=== PATIENT | female | born 1955 | race Hispanic/Latino ===

== ENCOUNTER 2020-03-08 00:15 | Emergency (ER) | payer BC ==
[~2020-03-08] VITALS: Ht 152.4 cm; Wt 85.7 kg
[2020-03-08 00:43] LABS: EOSINOPHILS # (AUTO) 0.2 (0.0-0.4); HEMATOCRIT 25.9 % (34.2-44.1); HEMOGLOBIN 8.2 g/dL (12.0-16.0); LYMPHOCYTES # (AUTO) 1.6 (1.0-3.2); LYMPHOCYTES % 37.8 % (18.0-39.1); MEAN CORPUSCULAR HEMOGLOBIN 30.9 pg (28-32); MEAN CORPUSCULAR HGB CONC 31.7 g/dL (31-35); MEAN CORPUSCULAR VOLUME 97.7 fL (81-99); MONOCYTES # (AUTO) 0.4 (0.2-0.8); MONOCYTES % 10.2 % (4.4-11.3); NEUTROPHILS % 46.8 % (38.7-80.0); RED BLOOD COUNT 2.65 x10e6/uL (3.6-5.1); RED CELL DISTRIBUTION WIDTH 17.5 % (11.7-14.4)
[2020-03-08 00:51] LABS: PLATELET COUNT 37 x10e3/uL (140-360)
--- NOTE | 2020-03-08 00:51 | Emergency Department Note ---
History of Present Illnes History of Present Illness Chief Complaint: Neurological History of Present Illness This is a 64 year old female arrived to the ED with daughter with complaints of confusion similar to what she had in the past when she had presents encephalopathy.. Historian: Patient, Family Member Arrival Mode: Car Onset (how long ago): day(s) Duration (how long): day(s) Timing of current episode: constant Progression: waxing and waning Chronicity: recurrent Past Medical/Family History Physician Review I have reviewed the patient's past medical and family history. Any updates have been documented here. Past Medical History Recent Fever: No Clinical Suspicion of Infectio: No New/Unexplained Change in Ment: No Social History Smoking Cessation: Never Smoker Counseling Performed: No Alcohol Use: None Any Illegal Drug Use: No Other Any Pre-Existing Lines (PICC,: No Review of Systems ROS Narrative Unable to obtain ROS: altered mental status Review of Systems Constitutional: Reports as per HPI; Denies fever, Denies malaise EENTM: Reports no symptoms Cardiovascular: Reports no symptoms Respiratory: Reports no symptoms Gastrointestinal: Reports no symptoms Genitourinary: Reports no symptoms Musculoskeletal: Reports no symptoms Integumentary: Reports no symptoms Neurological: Reports as per HPI Psychological: Reports no symptoms Endocrine: Reports no symptoms Hematological/Lymphatic: Reports no symptoms Physical Exam Related Data Allergies: Coded Allergies: No Known Allergies (Unverified , 03/08/20) Triage Vital Signs Vital Signs Date Time Temp Pulse Resp B/P (MAP) Pulse Ox O2 Delivery O2 Flow Rate FiO2 03/08/20 00:22 98.2 76 15 118/50 100 Room Air Vital signs reviewed: Yes Physical Exam CONSTITUTIONAL Constitutional: Present well-developed, Present well-nourished HENT HENT: Present normocephalic, Present atraumatic, Present oropharynx clear/moist, Present nose normal HENT L/R: Present left ext ear normal, Present right ext ear normal EYES Eyes: Reports PERRL, Reports conjunctivae normal NECK Neck: Present ROM normal PULMONARY Pulmonary: Present effort normal, Present breath sounds normal CARDIOVASCULAR Cardiovascular: Present regular rhythm, Present heart sounds normal, Present capillary refill normal, Present normal rate GASTROINTESTINAL Abdominal: Present soft, Present nontender, Present bowel sounds normal GENITOURINARY Genitourinary: Present exam deferred SKIN Skin: Present warm, Present dry MUSCULOSKELETAL Musculoskeletal: Present ROM normal NEUROLOGICAL Neurological: Present alert, Present no gross motor or sensory deficits PSYCHOLOGICAL Psychological: Present mood/affect normal, Present judgement normal Results Laboratory Laboratory Laboratory Tests Test 03/08/20 00:30 Lab results reviewed: Yes Imaging Imaging results reviewed: Yes Assessment & Plan Medical Decision Making MDM 64-year-old female arrived to the ED with questionable altered mental status. Patient is awake alert oriented 3 but is exhibiting bizarre behavior. Granddaughter at bedside stated patient had a ten-day ICU stay for hepatic encephalopathy. Patient's labwork in the ED was unremarkable except for an elevated bilirubin. Patient had no evidence of other pneumonia or abnormal liver enzymes. A CT of the brain was done to ensure there was no neurological process in the form of a CVA that was causing patient's bizarre behavior. A CT abdomen and pelvis was also performed to ensure that there was no retained stone in the common bile duct. Patient had a mild urinary tract infection and perhaps this is the cause of her symptoms, at this time there appears to be no indication for further workup and family to wishes bring the patient home. Patient was discharged home, individually steady gait. Patient was given medications in the ED to help relax her and effort to obtain CT brain and CT abdomen and pelvis which she was initially refusing. Patient was discharged home with granddaughter and , understands they're welcome to return back to the emergency department any time. Assessment & Plan Final Impression: (1) Urinary tract infection Depart Disposition: HOME, SELF-CARE Last Vital Signs Date Time Temp Pulse Resp B/P (MAP) Pulse Ox O2 Delivery O2 Flow Rate FiO2 03/08/20 00:22 98.2 76 15 118/50 100 Room Air Home Meds Reported Medications Lactulose (LACTULOSE) 20 Gm/30 Ml Solution, 15 ML PO TID, EACH 03/08/20 Levetiracetam (LEVETIRACETAM) 500 Mg Tablet, 500 MG PO BID 03/08/20 Spironolactone (SPIRONOLACTONE) 25 Mg Tablet, 25 MG PO DAILY, #60 TAB 03/08/20 Thiamine Hcl (VITAMIN B-1) 100 Mg Tablet, 100 MG PO DAILY 03/08/20 Midodrine Hcl (MIDODRINE HCL) 5 Mg Tablet, 10 MG PO TID, TAB 03/08/20 Furosemide (FUROSEMIDE) 40 Mg Tablet, 40 MG PO Daily, #30 TAB 03/08/20 Pantoprazole Sodium* (PROTONIX) 40 Mg Tablet.dr, 40 MG PO DAILY, TAB 03/08/20 [folic acid] No Conflict Check, 1 MG PO DAILY 03/08/20 Rifaximin (XIFAXAN) 550 Mg Tablet, 550 MG PO DAILY 03/08/20 Ferrous Sulfate (FERROUS SULFATE) 325 Mg Tablet, 325 MG PO DAILY 03/08/20 SYLVIA JAQUEZ, Mar 08, 2020 00:51
[2020-03-08 00:55] LABS: ALBUMIN 3.1 g/dL (3.5-5.0); ANION GAP 13.1 mmol/L (8-16); CALCIUM 8.7 mg/dL (8.4-10.2); CREATININE, SERUM 1.27 mg/dL (0.57-1.11); POTASSIUM 3.1 mmol/L (3.5-5.1)
[2020-03-08] MEDS ORDERED: FERROUS SULFAT325 MG PO (01:00)
[2020-03-08] MEDS ORDERED: LEVETIRACETAM500 MG PO (01:00)
[2020-03-08] MEDS ORDERED: XIFAXAN550 MG PO (01:00)
[2020-03-08] MEDS ORDERED: FUROSEMIDE40 MG PO (01:00)
[2020-03-08] MEDS ORDERED: folic acid PO (01:00)
[2020-03-08] MEDS ORDERED: MIDODRINE HCL5 MG PO (01:00)
[2020-03-08] MEDS ORDERED: PANTOPRAZOLE SO40 MG PO (01:00)
[2020-03-08] MEDS ORDERED: VITAMIN B-1100 MG PO (01:00)
[2020-03-08] MEDS ORDERED: SPIRONOLACTONE25 MG PO (01:00)
[2020-03-08] MEDS ORDERED: LACTULOSE20 GM/30 M PO (01:01)
[2020-03-08] MEDS ORDERED: LORAZEPAM INJ 2 MG/ML VIAL IV ONE (01:15)
[2020-03-08] MEDS ORDERED: LORAZEPAM INJ 2 MG/ML VIAL ONE (01:20)
[2020-03-08 01:24] LABS: AMYLASE 33 U/L (25-125); LIPASE 11 U/L (8-78)
[2020-03-08] MEDS ORDERED: SODIUM CHLORIDE 0.9% 1000ML 1,000 ML IV STA (01:25)
[2020-03-08] MEDS ORDERED: HALOPERIDOL LACTATE 5 MG/ML VIAL ONE (01:44)
[2020-03-08] MEDS ORDERED: HALOPERIDOL LACTATE 5 MG/ML VIAL IM ONE (02:00)
--- NOTE | 2020-03-08 02:01 | NUR ---
over the past hour patient has become increasingly confused and agitated, mutliple attempts to reorient have failed, comfort measure have failed to reorient patient, all safety measures are in place for patient.
--- NOTE | 2020-03-08 03:44 | NUR ---
patient is now less agitated, resting in bed comfortably.
--- NOTE | 2020-03-08 04:15 | Diagnostic Imaging Report ---
EXAMINATION: CHEST SINGLE (PORTABLE) INDICATION: EDEMA TO BLE ^[id number] ^[id number] COMPARISON: None FINDINGS: TUBES and LINES: None. LUNGS: Lungs are well inflated. Mild perihilar patchy density, left greater than right may represent mild asymmetric pulmonary edema. There is mild prominence of the central pulmonary vasculature, consistent with pulmonary venous congestion. PLEURA: Bilateral small pleural effusions. No pneumothorax. HEART AND MEDIASTINUM: Cardiac size is mildly enlarged. BONES AND SOFT TISSUES: No acute osseous lesion. Soft tissues are unremarkable. UPPER ABDOMEN: No free air under the diaphragm. IMPRESSION: Bilateral pulmonary venous congestion and mild asymmetric pulmonary edema. Signed by: Dr. Carlos López M.D. on 03/08/2020 4:12 AM
--- NOTE | 2020-03-08 04:30 | Diagnostic Imaging Report ---
EXAM: CT Abdomen and Pelvis WITH contrast INDICATION: Abdominal pain. Jaundice. COMPARISON: None. TECHNIQUE: Abdomen and pelvis were scanned utilizing a multidetector helical scanner from the lung base to the pubic symphysis after administration of IV contrast. Coronal and sagittal reformations were obtained. Routine protocol was performed. Scan was performed when during portal venous phase. IV CONTRAST: 100 cc Isovue-370 ORAL CONTRAST: Water RADIATION DOSE: Total DLP: 2176.62 mGy*cm Estimated effective dose: (DLP x 0.015 x size factor) mSv COMPLICATIONS: None FINDINGS: LINES and TUBES: None. LOWER THORAX: Small right and trace left pleural effusions. Compressive subsegmental atelectasis of the right lower lobe. Trace pericardial effusion. HEPATOBILIARY: Nodular hepatic contour, with atrophy of the medial segment of the left hepatic lobe, consistent with cirrhotic morphology. 6 mm low-attenuation lesion in the hepatic dome on image 12 series 6 is too small to be characterized.. No biliary ductal dilation. GALLBLADDER: No radio-opaque stones or sludge. No wall thickening. SPLEEN: Mild splenomegaly. PANCREAS: No focal masses or ductal dilatation. ADRENALS: No adrenal nodules KIDNEYS/URETERS: Kidneys enhance symmetrically. No hydronephrosis. 1.9 cm high attenuation lesion exophytic of the posterior lower pole of the left kidney with dependent high attenuation may represent a hemorrhagic cyst, however, not completely characterized in this postcontrast exam.. No stones. GI TRACT: No abnormal distention, wall thickening, or evidence of bowel obstruction. There are a few diverticula within the colon without evidence of diverticulitis. Appendix is nonvisualized, however, no evidence of PELVIC ORGANS/BLADDER: Small calcified leiomyoma exophytic of the posterior uterine fundus. LYMPH NODES: No lymphadenopathy. VESSELS: Large collateral vessels about the splenic vein, with severe narrowing of the portal vein consistent with collateral circulation with splenorenal shunt. 1.2 cm eggshell type calcification in the splenic hilum may represent a thrombosed aneurysm. Prominent right gonadal vein. PERITONEUM / RETROPERITONEUM: No free air or fluid. BONES: There are degenerative changes in the lumbar spine. Bulky posterior endplate osteophytes at T12-L1. Marked facet arthropathy at T10-T11 with impingement on the right posterolateral spinal canal. SOFT TISSUES: Mild diffuse subcutaneous edema. IMPRESSION: 1. Hepatic cirrhosis. 2. Mild splenomegaly. 3. Portal hypertension with collateral circulation. 4. Small right pleural effusion and right basilar subsegmental atelectasis. 5. 1.9 cm complex cystic lesion in the lower pole of the left kidney is indeterminate. Recommend further evaluation with nonemergent dedicated CT of abdomen without and with contrast adrenal mass protocol. Signed by: Dr. Carlos López M.D. on 03/08/2020 4:27 AM
--- NOTE | 2020-03-08 04:44 | Diagnostic Imaging Report ---
EXAMINATION: CT angio of the neck and head with contrast. HISTORY:Altered mental status and slurred speech for 3 days. COMPARISON:None. TECHNIQUE: Multidetector helical axial images were acquired through the neck and head during infusion of iodinated contrast material. Images were reviewed in multiplanar and 3-dimensional format. Dose modulation, iterative reconstruction, and/or weight based adjustment of the mA/kV was utilized to reduce the radiation dose to as low as reasonably achievable. Contrast: 100 mL of Isovue-370 . FINDINGS: CT head: Skull/scalp: No lytic or blastic. lesions. No surgical changes. Parenchyma: Cortical/subcortical based hypodensity in right parietal lobe and focal patchy hypodensity in left subinsular region represents age indeterminate vascular insult. Nonspecific few, scattered supratentorial white matter hypodensity are likely related to small vessel ischemic changes. Suboptimal evaluation particularly of skull base and posterior fossa structures due to streak artifacts. No acute hemorrhage, mass or acute major vascular territorial infarct. Arteries: No density suggestive of thrombosis. Vascular stent in the distal petrous and cavernous segment of left internal carotid artery. Dural sinuses: No abnormal density suggestive of thrombosis. Ventricles: No hydrocephalus or displacement. Extra-axial spaces: Mild prominence of bilateral frontoparietal extra-axial space which is diffusely hypodense, and approximately measures 5 mm in maximum thickness on the right side and 5.5 mm in maximum thickness on the left with regional mass effect. No midline shift. Brain volume: Normal for age. Craniocervical junction: No mass, Chiari malformation, or basilar invagination. Sella: No mass. Paranasal/mastoid sinuses: Opacification of partially visualized hypoplastic right maxillary sinus. Partial sclerosis and under pneumatization of right mastoid air cells possibly related to chronic inflammation. NECK: If carotid bulb stenosis is present, stenosis is measured with respect to the distal extracranial internal carotid artery. Aortic arch and major vessels: Patent. Common origin of the brachiocephalic trunk and left common carotid artery. Few, scattered nonstenotic atherosclerotic calcification in the aortic arch. Common carotid arteries: Patent, retropharyngeal course of bilateral common carotid arteries. Cervical carotid bifurcations: Patent, no abnormality. Internal carotid arteries: Right: Patent. Left: Patent. Vertebral arteries: Right vertebral artery is patent. Few, scattered nonstenotic hard atherosclerotic plaque in V2 segment of left vertebral artery without significant stenosis. Incidental finding: Right pleural effusion. Right dependent atelectasis. Cervical spine: C4-C5: Mild right foraminal stenosis due to facet and uncovertebral arthrosis. C5-C6: Mild right foraminal stenosis due to facet arthrosis. HEAD: Internal carotid arteries: Right: 3.5 mm saccular aneurysm arising from medial aspect of the cavernous segment of right internal carotid artery, oriented medially towards the sella. The neck approximately measures 2.6 mm. Left: Vascular stent in the distal petrous and cavernous segment of left internal carotid artery. The metallic stent limits evaluation due to artifacts, despite the limitation of flow within the stent appears to the patent with good distal flow. Bilateral anterior and middle cerebral arteries are patent. Vertebral arteries: Patent. Basilar artery: Patent. Posterior cerebral arteries: Patent. Anatomical variants: Anterior communicating artery :Not well-visualized Posterior communicating arteries: Not visualized. Vertebral arteries: Codominant. IMPRESSION: CT head: 1. Age indeterminate vascular insult in left subinsular region and possible chronic vascular insult in right parietal lobe. 2. Mild supratentorial white matter microvascular ischemic changes. 3. Mild bilateral frontoparietal chronic subdural hemorrhage vs subdural hygroma with regional mass effect. No midline shift or brain herniation. 4. Left internal carotid vascular stent in the petrous and cavernous segment. CTA head and neck: 1. 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 2. Vascular stent in the distal petrous and cavernous segment of left internal carotid artery, suboptimal evaluation at this level due to metallic artifacts. Despite the limitation stent is patent with good distal flow. This can be better evaluated with conventional angiogram if clinically indicated. 3. Few, scattered nonstenotic atherosclerotic calcification particularly in the aortic arch and V2 segment of left vertebral artery. Signed by: Dr. Romi Basilio M.D. on 03/08/2020 4:41 AM
[2020-03-08 05:28] LABS: CLARITY,URINE HAZY (CLEAR); COLOR,URINE AMBER (YELLOW)
[2020-03-08 05:29] LABS: BACTERIA,URINE MANY /HPF; BILIRUBIN,URINE NEGATIVE (NEGATIVE); EPITHELIAL CELLS,URINE MODERATE /LPF; KETONES,URINE NEGATIVE (NEGATIVE); LEUKOCYTE ESTERASE ,URINE NEGATIVE (NEGATIVE); NITRITE,URINE POSITIVE (NEGATIVE); PROTEIN,URINE DIPSTICK NEGATIVE (NEGATIVE); URINE UROBILINOGEN 0.2 mg/dL (0.2 - 1)
--- NOTE | 2020-03-08 07:04 | NUR ---
WALKING ROUNDS WITH TONI RAY
[2020-03-08 07:39] VITALS: BP 106/57
[2020-03-08] MEDS ORDERED: SODIUM CHLORIDE 0.9% 100 ML ONE (10:28)
[2020-03-08] MEDS ORDERED: IOPAMIDOL 370 MG/ML 200 ML INFUS..BTL INJ ONE (10:28)
== END 2020-03-08 08:30 | disposition home or self-care (01) ==
LOC: ER 00:41
DX: N39.0 Urinary tract infection, site not specified (principal); R41.0 Disorientation, unspecified
CPT/HCPCS: 36415; 70496; 70498; 71045; 74177; 80053; 80320; 81001; 82140; 82150; 83690; 83880; 85025; 99284; J1630; J2060; J7050; Q9967

== ENCOUNTER 2020-03-15 07:13 | Inpatient (IN) | payer BC, OTHER ==
[~2020-03-15] VITALS: Ht 152.4 cm; Wt 85.7 kg
[2020-03-15] VITALS (7 sets, daily range): BP systolic 90–111; BP diastolic 46–59
[~2020-03-15 07:13] MED LIST: FERROUS SULFAT325 MG PO; FUROSEMIDE40 MG PO; LACTULOSE20 GM/30 M PO; LEVETIRACETAM500 MG PO; MIDODRINE HCL5 MG PO; PANTOPRAZOLE SO40 MG PO; SPIRONOLACTONE25 MG PO; VITAMIN B-1100 MG PO; XIFAXAN550 MG PO; folic acid PO
--- OUTSIDE RECORDS SUMMARY | 2020-03-15 08:00 | XMS REPORT | Continuity of Care Document ---
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 Role Phone [facility] Information Exchange Unavailable Un available Problems Problem Status Onset Date Classification Date Reported Comments Source AMS Active 0 02/15/2020 [facility] ALTERED MENTAL STATUS, ACUTE HEPATIC ENC Active 02/15/2020 [facility] Encounter for screening mammogram for ma lignant neoplasm of breast 11/29/2017 02/23/2018 [facility] ROUTINE SCREENING LAST MMG W/ Active 11/16/2017 [facility] DX: I82.401=ACUTE EMBOLISM AND THROMBOSI Active 11/16/2017 [facility] Z12.11 Active 10/11/2016 [facility] UNK Active 0 10/11/2016 [facility] ALTERED MENTAL STATUS Active 09/18/2016 [facility] Discharge Diagnosis: Palpitations 04/29/2016 05/02/2016 [facility] RAPID HEARTRATE Active 04/28/2016 [facility] LARGE LEFT CAVERNOUS ANEURYSM Active 09/16/2011 [facility] Anxiety (finding) Active Problem 02/28/2020 [facility] Cerebrovascular accident (disorder) Active Problem [facility] Cirrhosis of liver (disorder) Active Problem [facility] History of cholecystectomy (situation) Active Problem [facility] Hypertensive disorder, systemic arterial (disorder) Active Problem 02/28/2020 [facility] Seizure (finding) Active Problem 02/28/2020 [facility] History of cholecystectomy Act aristeo Problem 07/2012 [facility] HTN - Hypertension Active Problem 03/25/2012 [facility] NONRUPT CEREBRAL ANEURYM Active [facility] ALTERED MENTAL STATUS, UNSPECIFIED Active [facility] ACUTE AND SUBACUTE HEPATIC FAILURE WITHO Active [facility] Medications Medication Details Route Status Patient Instructions Ordering Provider Order Date Source Levetiracetam Notes: (Same as: Keppra) No Longer Active 02/27/2020 [facility] pantoprazole 40 MG Enteric Coated Tablet [Protonix] 40 mg = 1 tab, PO, Daily, # 30 tab, 0 Refill(s), Pharmacy: [facility] #[id number], 152.4, cm, 02/15/20 22:51:00 CDT, Height, 59.091, kg, 02/15/20 22:51:00 CDT, Weight Active 02/26/2020 [facility] thiamine 100 mg oral tablet 10 0 mg = 1 tab, PO, Daily, X 30 day, # 30 tab, 0 Refill(s), Pharmacy: [facility] #[id number], 152.4, cm, 02/15/20 22:51:00 CDT, Height, 59.091, kg, 02/15/20 22:51:00 CDT, Weight Active 02/26/2020 [facility] midodrine 5 mg oral tablet 10 mg = 2 tab, PO, TID, # 180 tab, 0 Refill(s), Pharmacy: [facility] #[id number], 152.4, cm, 02/15/20 22:51:00 CDT, Height, 59.091, kg, 02/15/20 22:51:00 CDT, Weight Active 02/26/2020 [facility] Potassium Chloride Notes: ([facility] e as: K-Dur 20) "Do Not Crush" Give with food and full glass of water For patients unable to swallow tablet, dissolve in one half glass of water. Allow about 2 minutes for the tab lets to disintegrate. Stir before giving to prepare slurry and administer. Please exclude Patients with feeding tube less than 14 Romanian (Dobhoff, J-tube etc) and pediatric and patients. No Longer Active 02/26/2020 [facility] potassium phosphate-sodium phosphate 250 mg-280 mg-160 mg oral powder for reconstitution Notes: (Same as: Phos-NaK) Each 1.5 gm pkt has 250mg phosphorous. Mix w/2.5oz water and stir. No Longer Active 02/26/2020 [facility] potassium phosphate Notes: ([facility] as: K Phosphate.) Do not infuse phosphorous concurrently in the same line as TPN or IVF that contains calcium. For double lumen central lines, phosphorous may be infused in a separate lumen from TPN. 1 mMol phoshate has 1.47 mEq potassium Infuse over 4 hours No Longer Active 02/26/2020 [facility] sodium phosphate Notes: Infuse over 4 hour. Do not infuse phosphorous concurrently in the same line as TPN or IVF that contains calcium. For double lumen central lines, phosphorous may be infused in a separate lumen from TPN. No Longer Active 02/26/2020 [facility] Magnesium Sulfate Notes: WASTE : F/P - Sink; E - Municipal Trash Bin No Longer Active 02/26/2020 [facility] Magnesium Oxide Notes: (Same a s: Mag-Ox 400) Magnesium oxide [id number] elemental magnesium Dose=____mg magnesium oxide (___mg elemental magnesium) No Longer Active 02/26/2020 [facility] Calcium Gluconate Notes: WASTE : F/P - Sink; E - Municipal Trash Bin No Longer Active 02/26/2020 [facility] Potassium Chloride Notes: ([facility] e as: KCL) Infuse no faster than 10 mEq/hr if given peripherally. No Longer Active 02/25/2020 [facility] sodium phosphate Notes: Infuse over 4 hour. Do not infuse phosphorous concurrently in the same line as TPN or IVF that contains calcium. For double lumen central lines, phosphorous may be infused in a separate lumen from TPN. No Longer Active 02/25/2020 [facility] potassium phosphate Notes: (Sa me as: K Phosphate.) Do not infuse phosphorous concurrently in the same line as TPN or IVF that contains calcium. For double lumen central lines, phosphorous may be infused in a separate lumen from TPN. 1 mMol phoshate has 1.47 mEq potassium Infuse over 4 hours No Longer Active 02/25/2020 [facility] potassium phosphate-sodium phosphate 250 mg-280 mg-160 mg oral powder for reconstitution Notes: (Same as: Phos-NaK) Each 1.5 gm pkt has 250mg phosphorous. Mix w/2.5oz water and stir. No Longer Active 02/25/2020 [facility] Magnesium Sulfate Notes: WASTE : F/P - Sink; E - Municipal Trash Bin No Longer Active 02/25/2020 [facility] Magnesium Oxide Notes: (Same a s: Mag-Ox 400) Magnesium oxide [id number] elemental magnesium Dose=____mg magnesium oxide (___mg elemental magnesium) No Longer Active 02/25/2020 [facility] Calcium Gluconate Notes: Conta ins: calcium gluconate 20mg/mL NaCl 0.67% 50mL WASTE: F/P - Sink; E - Municipal Trash Bin No Longer Active 02/25/2020 [facility] Calcium Carbonate 500 MG Chewable Tablet Notes: (Same As: Tumadithya) Calcium Carbonate 500 mg = 200 mg elemental calcium Dose = mg calcium carbonate ( mg elemental calcium) No Longer Active 02/25/2020 [facility] D5W 500 mL 500 mL, Rate: 100 m l/hr, Infuse over: 5 hr, Route: IV, Dosing Weight 59.091 kg, Total Volume: 500, Start date: 02/25/20 6:13:00 CDT, Duration: 30 day, Stop date: 03/26/20 6:12:00 CDT, 1.6, m2, 0 No Longer Active 02/25/2020 [facility] potassium phosphate Notes: (Sa me as: K Phosphate.) Do not infuse phosphorous concurrently in the same line as TPN or IVF that contains calcium. For double lumen central lines, phosphorous may be infused in a separate lumen from TPN. 1 mMol phoshate has 1.47 mEq potassium Infuse over 4 hours Inactive 02/25/2020 [facility] Magnesium Sulfate Notes: WASTE : F/P - Sink; E - Municipal Trash Bin Inactive 02/25/2020 [facility] potassium phosphate Notes: (Sa me as: K Phosphate.) Do not infuse phosphorous concurrently in the same line as TPN or IVF that contains calcium. For double lumen central lines, phosphorous may be infused in a separate lumen from TPN. 1 mMol phoshate has 1.47 mEq potassium Infuse over 4 hours Inactive 02/23/2020 [facility] Lactulose 667 MG/ML Oral Solution Notes: (Same as:Chronulac) No Longer Active 02/21/2020 [facility] Lactulose 667 MG/ML Oral Solution Notes: (Same as:Chronulac) Inactive 02/21/2020 [facility] Metronidazole Notes: (Same as: Flagyl) Avoid alcohol. No Longer Active 02/20/2020 [facility] Sodium Chloride 0.9% IV 250 mL + octreot david 1,250 microgram 250 mL, Rate: 10 ml/hr, Infuse over: 25 hr, Route: IV, Dosing Weight 59.091 kg, Total Volume: 250, Start date: 02/19/20 7:00:00 CDT, Duration: 30 day, Stop date: 03/20/20 6:59:00 CDT, 1.6, m2 Inactive 02/19/2020 [facility] octreotide 1,250 microgram + Sodium Chlo ride 0.9% IV 248.75 mL 248.75 mL, Rate: 10 ml/hr, Infuse over: 25 hr, Route: IV, Dosing Weight 59.091 kg, Total Volume: 250, Start date: 02/19/20 6:50:00 CDT, Duration: 30 day, Stop date: 03/20/20 6:49:00 CDT, 1.6, m2, 0 No Longer Active 02/19/2020 [facility] pantoprazole additive 80 mg + Sodium Chl oride 0.9% IV 100 mL Notes: For IV push reconstitute with 10 ml 0.9% sodium chloride and push over 2 minutes. (Same as: Protonix) No Longer Active 02/19/2020 [facility] Thiamine Notes: (Same As: Chloe min B1) No Longer Active 02/18/2020 [facility] Vitamin K 1 Notes: Same as: Aminata Chaney Mephyton Combine FILTERED phytonadione injection (total 50 mg/5 mL)with Simple Syrup (45mL) in natalee bottle. Shake well prior to dispensing. Expiration: 90 days at temp No Longer Active 02/18/2020 [facility] Plavix Notes: (Same As: Plavix) No Longer Active 02/18/2020 [facility] Folic Acid Notes: (Same as: Fo lvite) No Longer Active 02/18/2020 [facility] Vasopressin ([facility]) Notes: (Same As: Pitressin, Vasostrict) No Longer Active 02/17/2020 [facility] albumin human 25% intravenous solution Notes: Lot #: Mfg: (Same as: Plasbumin-25) "blood product derivative" WASTE: F/P - Red; E -Red MEDICATION WASTE Product Size: 25 gm Product Wasted: ___ gm No Longer Active 02/17/2020 [facility] Lactulose 667 MG/ML Oral Solution Notes: (Same as:Chronulac) No Longer Active 02/17/2020 [facility] Rocephin + sterile water 10 mL Notes: (Same As: Rocephin). Use with 100 mL NS and infuse over 30 min MEDICATION WASTE Product Size: 1000 mg Product Wasted: ___ mg No Longer Active 02/17/2020 [facility] Lactulose 667 MG/ML Oral Solution Notes: (Same as:Chronulac) Inactive 02/17/2020 [facility] rifaximin Notes: Same as: Xifa jones No Longer Active 02/17/2020 [facility] XIFAXAN Notes: Same as: Xifaxan Inactive 02/16/2020 [facility] riFAXimin 550 mg oral tablet 5 50 mg = 1 tab, PO, BID Active 02/16/2020 [facility] pantoprazole 40 MG Enteric Coated Tablet [Protonix] 40 mg = 1 tab, PO, Daily No Longe r Active 02/16/2020 [facility] Furosemide 40 MG Oral Tablet 4 0 mg = 1 tab, PO, Daily No Longer Active 02/16/2020 [facility] Lactulose 667 MG/ML Oral Solution Notes: (Same as:Chronulac) Inactive 02/16/2020 [facility] Midodrine Notes: (Same as:Proa matine) No Longer Active 02/16/2020 [facility] NS 1,000 mL 1,000 mL, Rate: 50 ml/hr, Infuse over: 20 hr, Route: IV, Dosing Weight 59.091 kg, Total Volume: 1,000, Start date: 02/16/20 9:28:00 CDT, Duration: 30 day, Stop date: 03/17/20 9:28:00 CDT, 1.6, m2, 0 No Longer Active 02/16/2020 [facility] Keppra Notes: Same as Keppra Mix with 100 mL NS, LR or D5W MEDICATION WASTE Product Size: 500 mg Product Wasted: ___ mg No Longer Active 02/16/2020 [facility] Dextrose 50% Syringe (D50W) 12 .5 gm, 25 mL, Route: IVP, Drug Form: INJ, Dosing Weight 59.091, kg, PRN, PRN Blood Glucose Results, Start date: 02/16/20 6:04:00 CDT, Duration: 30 day, Stop date: 03/17/20 6:03:00 CDT, 0 No Longer Active 02/16/2020 [facility] Glucagon 1 mg, Route: IM, Drug form: PDR/INJ, PRN, Dosing Weight 59.091, kg, PRN Blood Glucose Results, Start date: 02/16/20 6:04:00 CDT, Duration: 30 day, Stop date: 03/17/20 6:03:00 CDT, 0 No Longer Active 02/16/2020 [facility] pantoprazole additive 80 mg + Sodium Chl oride 0.9% IV 100 mL Notes: For IV push reconstitute with 10 ml 0.9% sodium chloride and push over 2 minutes. (Same as: Protonix) No Longer Active 02/16/2020 [facility] Norepinephrine Notes: Same as: Levophed. Administer by either central venous catheter or peripherally-inserted central catheter (PICC) line. Concentration: 0.032 mg / mL No Longer Active 02/16/2020 [facility] Norepinephrine Notes: Same as: Levophed. Administer by either central venous catheter or peripherally-inserted central catheter (PICC) line. Concentration: 0.032 mg / mL Inactive 02/16/2020 [facility] Sodium Chloride 0.9% (Bolus) IV 1,000 mL, 1000 ml/hr, Infuse Over: 1 hr, Route: IV, 1,000, Drug form: INJ, ONCE, Priority: STAT, Dosing Weight 59.091 kg, Start date: 02/16/20 3:13:00 CDT, Stop date: 02/16/20 3:13:00 CDT, 0 Inactive 02/16/2020 [facility] Dextrose 50% Syringe (D50W) 12 .5 gm, 25 mL, Route: IVP, Drug Form: INJ, Dosing Weight 59.091, kg, PRN, PRN Blood Glucose Results, Start date: 02/16/20 2:35:00 CDT, Duration: 30 day, Stop date: 03/17/20 2:34:00 CDT, 0 Inactive 02/16/2020 [facility] Glucagon 1 mg, Route: IM, Drug form: PDR/INJ, PRN, Dosing Weight 59.091, kg, PRN Blood Glucose Results, Start date: 02/16/20 2:35:00 CDT, Duration: 30 day, Stop date: 03/17/20 2:34:00 CDT, 0 Inactive 02/16/2020 [facility] Ondansetron Notes: (Same as: Julian hutton) MEDICATION WASTE Product Size: 4 mg Product Wasted: ___ mg No Longer Active 02/16/2020 [facility] Melatonin Notes: (Same as: Rachael atonin) Inactive 02/16/2020 [facility] Acetaminophen Notes: Do not ex ceed 4 gm/day. (Same as: Tylenol) No Longer Active 02/16/2020 [facility] Lactated Ringers IV 1,000 mL 1 ,000 mL, Rate: 75 ml/hr, Infuse over: 13.3 hr, Route: IV, Dosing Weight 59.091 kg, Total Volume: 1,000, Start date: 02/16/20 2:35:00 CDT, Duration: 30 day, Stop date: 03/17/20 2:34:00 CDT, 1.6, m2, 0 Inactive 02/16/2020 [facility] Saline Flush 0.9% Notes: (Same as: BD Posiflush) No Longer Active 02/16/2020 [facility] Ceftriaxone Notes: (Same As: Esperanza cota). Use with 100 mL NS and infuse over 30 min MEDICATION WASTE Product Size: 1000 mg Product Wasted: ___ mg Inactive 02/16/2020 [facility] Hydralazine Notes: (Same as: A presoline) Push over 5 minutes Inactive 02/16/2020 [facility] Lactulose Notes: Lactulose 300 ml, Water for Irrigation 700ml - total volume = 1000ml Inactive 02/16/2020 [facility] Hydralazine 10 mg, Route: IVP, ONCE, Dosing Weight 59.091, kg, Priority: STAT, Start date: 02/16/20 1:12:00 CDT, Stop date: 02/16/20 1:12:00 CDT Inactive 02/16/2020 [facility] Saline Flush 0.9% Notes: (Same as: BD Posiflush) No Longer Active 02/16/2020 [facility] Sodium Chloride 0.154 MEQ/ML Injectable Solution 1,000 mL, Rate: 25 ml/hr, Infuse over: 40 hr, Route: IV, Dosing Weight 79.347 kg, Total Volume: 1,000, Start date: 10/19/16 8:55:00 [employer]AND CONSULTANT, Duration: 1 day, Stop date: 10/20/16 8:54:00 [employer]AND [employer]SULTANT Inactive 10/19/2016 [facility] Lactulose 667 MG/ML Oral Solution [Generlac] 0 Refill(s) Active 10/18/2016 [facility] spironolactone 50 mg oral tablet 50 mg = 1 tab, PO, Daily, # 30 tab, 1 Refill(s) Active 10/18/2016 [facility] Streptococcus pneumoniae serotype 1 caps ular antigen diphtheria [id number] protein conjugate vaccine / Streptococcus pneumoniae serotype 14 capsular antigen diphtheria [id number] protein conjugate vaccine / Streptococcus pneumoniae serotype 18C capsular antigen d Notes: Lightly roll vial (DO NOT SHAKE) before administration. (Same as: Prevnar 13) Inactive 09/21/2016 [facility] ferrous sulfate 325 mg oral enteric coated tablet 325 mg = 1 tab, PO, Daily, # 30 tab, 0 Refill(s) Active 09/21/2016 [facility] pantoprazole 40 mg oral enteric coated tablet 40 mg = 1 tab, PO, Before Dinner, # 30 tab, 0 Refill(s) Active 09/21/2016 [facility] levofloxacin 250 mg oral tablet 500 mg = 2 tab, PO, [id number], X 5 day, # 10 tab, 0 Refill(s) Active 09/21/2016 [facility] Lactulose 667 MG/ML Oral Solution 10 gm = 15 mL, PO, BID, X 14 day, # 420 mL, 0 Refill(s) Active 09/21/2016 [facility] Levetiracetam 500 MG Oral Tablet [Keppra] 500 mg = 1 tab, PO, Q12H, # 60 tab, 0 Refill(s) Active 09/21/2016 [facility] Folic Acid 1 MG Oral Tablet 1 mg = 1 tab, PO, Daily, # 30 tab, 0 Refill(s) Active 09/21/2016 [facility] Sodium Chloride 0.154 MEQ/ML Injectable Solution 1,000 mL, Rate: 25 ml/hr, Infuse over: 40 hr, Route: IV, Dosing Weight 81.818 kg, Total Volume: 1,000, Start date: 09/21/16 7:47:00 [employer]AND CONSULTANT, Duration: 1 day, Stop date: 09/22/16 7:46:00 CONT[employer]AND CONSULTANT Inactive 09/21/2016 [facility] Levetiracetam 500 MG Oral Tablet [Keppra] Notes: (Same as:Ursulara) No Longer Active 09/21/2016 [facility] Lactulose 667 MG/ML Oral Solution Notes: (Same as:Chronulac) No Longer Active 09/20/2016 [facility] Levetiracetam Notes: Same as eppra Mix with 100 mL NS, LR or D5W MEDICATION WASTE Product Size: 500 mg Product Wasted: ___ mg Inactive 09/20/2016 [facility] Lisinopril Notes: (Same as: Pr inivil, Zestril) No Longer Active 09/20/2016 [facility] Folic Acid Notes: (Same as: Fo lvite) No Longer Active 09/20/2016 [facility] Protonix Notes: Tablet should not be chewed or crushed. (Same as: Protonix) No Longer Active 09/19/2016 [facility] Levaquin Notes: Do not give w/ antacids, dairy pdt & minerals Take 1 hr before or 2 hr after dairy pdt (Same as:Levaquin) No Longer Active 09/19/2016 [facility] Plavix Notes: (Same As: Plavix) No Longer Active 09/19/2016 [facility] Saline Flush 0.9% Notes: (Same as: BD Posiflush) No Longer Active 09/19/2016 [facility] Ondansetron Notes: (Same as: Julian hutton) MEDICATION WASTE Product Size: 4 mg Product Wasted: ___ mg No Longer Active 09/19/2016 [facility] Sodium Chloride 0.154 MEQ/ML Injectable Solution 1,000 mL, Rate: 75 ml/hr, Infuse over: 13.3 hr, Route: IV, Dosing Weight 81.818 kg, Total Volume: 1,000, Start date: 09/18/16 20:32:00 [employer]ANT, Duration: 30 day, Stop date: 10/18/16 20:31:00 [employer]AND CONS[employer]ANT No Longer Active 09/19/2016 [facility] clopidogrel 75 MG Oral Tablet [Plavix] 75 mg = 1 tab, PO, Daily, 0 Refill(s) Active 09/19/2016 [facility] lisinopril 5 mg oral tablet 5 mg = 1 tab, PO, Daily, 0 Refill(s) Active 09/19/2016 [facility] Sodium Chloride 0.154 MEQ/ML Injectable Solution 1,000 mL, Infuse Over: 1 hr, Route: IV, ONCE, Priority: STAT, Dosing Weight 81.818 kg, Start date: 09/18/16 17:53:00 [employer]AND [employer]ANT, Duration: 1 doses or times, Stop date: 09/18/16 17:53:00 [employer]ANT Inactive 09/18/2016 [facility] Versed 5 mg, Route: IVP, ONCE, Dosing Weight 81.818, kg, Priority: STAT, Start date: 09/18/16 17:35:00 CONT[employer]AND CONSULTANT, Stop date: 09/18/16 17:35:00 [employer]ANT Inactive 09/18/2016 [facility] Sodium Chloride 0.154 MEQ/ML Injectable Solution 1,000 mL, 1,000 ml/hr, Infuse Over: 1 hr, Route: IV, ONCE, Priority: STAT, Dosing Weight 81.818 kg, Start date: 09/18/16 14:37:00 CONT[employer]AND CONSULTANT, Duration: 1 doses or times, Stop date: 09/18/16 14:37:00 CONT[employer]AND CONSULTANT Inactive 09/18/2016 [facility] Sulfamethoxazole 800 MG / Trimethoprim 1 60 MG Oral Tablet [Bactrim] 1 tab, PO, BID, X 7 day, # 14 tab, 0 Ref ill(s) Active 04/29/2016 [facility] Alprazolam 0.5 MG Oral Tablet [Xanax] 0.5 mg = 1 tab, PO, Q8H, PRN Anxiety, X 7 day, # 21 tab, 0 Refill(s) Active 04/29/2016 [facility] Sodium Chloride 0.154 MEQ/ML Injectable Solution 1,000 mL, 2,000 ml/hr, Infuse Over: 30 minutes, Route: IV, 1,000, Drug form: INJ, ONCE, Priority: STAT, Dosing Weight 81.818 kg, Start date: 04/29/16 1:01:00 CDT, Duration: 1 doses or times, Stop date: 04/29/16 1:01:00 CDT Inactive 04/29/2016 [facility] Saline Flush 0.9% Notes: (Same as: BD Posiflush) No Longer Active 04/29/2016 [facility] heparin 5,000 unit, 1 mL, Rout e: SUB-Q, Drug form: INJ, Q12H, Start date: 03/23/12 16:00:00, Duration: 30 day, Stop date: 04/22/12 4:00:00 SUB-Q No Longer Active Nava 03/23/2012 [facility] aspirin 325 mg tablet 325 mg, 1 tab, Route: PO, Drug form: TAB, Daily, Start date: 03/23/12 9:00:00, Duration: 30 day, Stop date: 04/21/12 9:00:00 PO No Longer Active Nava 03/23/2012 [facility] nter Plavix 75 mg, 1 tab, Route: PO , Drug form: TAB, Daily, Start date: 03/23/12 9:00:00, Duration: 30 day, Stop date: 04/21/12 9:00:00 PO No Longer Active Nava 05/2012 [facility] dexamethasone 2 mg oral tablet See Instructions, 48 tab, Substitution Allowed, Take 2 tabs every 6 hours x 2 days, then take 2 tabs every 8 hours x 2 days, then take 2 tabs every 12 hours x 2 days, then take 1 tab every 8 hours x 2 days, then take 1 tab every 12 hours x 2 days, the...Take 2 tabs every 6 hours x 2 days, then take 2 tabs every 8 hours x 2 days, then take 2 tabs every 12 hours x 2 days, then take 1 tab every 8 hours x 2 days, then take 1 tab every 12 hours x 2 days, then take 1 tab once a day x 2 days, then stop Active Floyd 05/2012 [facility] Pepcid 20 mg oral tablet 20 mg , 1 tab, PO, BID, 24 tab, Substitution Allowed PO Active Floyd 03/23/2012 [facility] Plavix 75 mg oral tablet 75 mg , 1 tab, PO, Daily, 30 tab, Substitution Allowed, TAB PO Active [facility] chantal 03/23/2012 [facility] aspirin 325 mg tablet 325 mg, 1 tab, PO, Daily, 30 tab, Substitution Allowed, TAB PO Active Ideal 03/23/2012 [facility] nter Vicodin ES 7.5/750 oral tablet 1-2 tab, PO, Q4-6H, PRN, 30 tab, Pain, Substitution Allowed, Soft Stop, TAB PO Active Floyd 03/23/2012 [facility] dexamethasone 4 mg, 1 mL, Rout e: IV, Drug form: INJ, Q6H, Start date: 03/23/12 6:00:00, Duration: 30 day, Stop date: 04/22/12 0:00:00 IV No Longer Active Day 012 [facility] potassium phosphate + Sodium Chloride 0.9% IV 250 mL 18 mmol, 6 mL, Route: IV, ONCE, Start date: 03/23/12 3:30:00, Stop date: 03/23/12 3:30:00 IV No Longer Active Day 03/23/2012 [facility] magnesium sulfate 2 gm, 50 mL, Route: IVPB, Drug form: INJ, ONCE, Start date: 03/23/12 3:00:00, Stop date: 03/23/12 3:00:00 IVPB No Longer Active Day 012 [facility] senna 8.6 mg oral tablet 8.6 m g, 1 tab, Route: PO, Drug Form: TAB, Bedtime, Start date: 03/22/12 21:00:00, Duration: 30 day, Stop date: 04/20/12 21:00:00 PO No Longer Active Nava 03/23/2012 [facility] nter hydrALAZINE 20 mg, 1 mL, Route : IV, Drug form: INJ, Q2H, PRN Elevated BP, Start date: 03/22/12 15:18:00, Duration: 30 day, Stop date: 04/21/12 15:17:00 IV No Longer Active Nava 03/22/2012 [facility] nter insulin regular human recombinant 100 un its/mL injectable solution 7 unit, 0.07 mL, Route: SUB-Q, Drug form : SOLN, PRN, PRN Abnormal Lab Result, Start date: 03/22/12 14:59:00, Duration: 30 day, Stop date: 04/21/12 14:58:00 SUB-Q No Longer Active Nava 03/22/2012 [facility] nter Dextrose 50% Syringe 6.25 gm, 12.5 mL, Route: IVP, Drug Form: INJ, PRN, PRN Abnormal Lab Result, Start date: 03/22/12 14:59:00, Duration: 30 day, Stop date: 04/21/12 14:58:00 IVP No Longer Active Nava 03/22/2012 [facility] labetalol 10 mg, 2 mL, Route: IVP, Drug form: INJ, Q1H, PRN Hypertension, Start date: 03/22/12 14:28:00, Duration: 30 day, Stop date: 04/21/12 13:28:00 IVP No Longer Active [place] 03/22/2012 [facility] nter senna 8.6 mg oral tablet 1 tab , Route: PO, Drug Form: TAB, Bedtime, PRN Constipation, Start date: 03/22/12 14:11:00, Duration: 30 day, Stop date: 04/21/12 14:10:00 PO No Longer Active [place] 03/22/2012 [facility] nter hydromorphone 0.5 mg, 0.25 mL, Route: IVP, Drug form: INJ, Q5Min, PRN Pain Score 4-6, Start date: 03/22/12 12:51:00, Duration: 5 doses or times, Stop date: 03/23/12 0:00:00 IVP No Longer Active [place] 03/22/2012 [facility] ondansetron 4 mg, 2 mL, Route: IVP, Drug form: INJ, ONCE, PRN Nausea & Vomiting, Start date: 03/22/12 12:51:00 IVP No Longer Active [place] 03/22/2012 [facility] flumazenil 0.2 mg, 2 mL, Route : IVP, Drug form: INJ, PRN, PRN Benzodiazepine Reversal, Initial dose, Start date: 03/22/12 12:51:00, Duration: 30 day, Stop date: 04/21/12 12:50:00 IVP No Longer Active [place] 03/22/2012 [facility] naloxone 0.04 mg, 0.1 mL, Rout e: IVP, Drug form: INJ, Q2MIN, PRN Narcotic Reversal, Start date: 03/22/12 12:51:00, Duration: 8 doses or times, Stop date: 03/23/12 0:00:00 IVP No Longer Active [place] 03/22/2012 [facility] Plavix 300 mg, 1 tab, Route: P O, Drug form: TAB, ONCE, Priority: NOW, Start date: 03/22/12 12:39:00, Duration: 1 doses or times, Stop date: 03/22/12 12:39:00 PO No Longer Active [place] 03/22/2012 [facility] nter metoclopramide 10 mg, 2 mL, Ro araceli: IV, Drug form: INJ, ONCE, Priority: NOW, Start date: 03/22/12 9:59:00, Stop date: 03/22/12 9:59:00 IV No Longer Active [place] 04/2012 [facility] heparin 5,000 unit, 1 mL, Rout e: SUB-Q, Drug form: INJ, Q12H, Start date: 03/22/12 9:00:00, Duration: 30 day, Stop date: 04/20/12 21:00:00 SUB-Q No Longer Active [place] 03/22/2012 [facility] nter Saline Flush 0.9% 5 ml, Route: IVP, Drug Form: INJ, Q12H, Start date: 03/22/12 9:00:00, Duration: 30 day, Stop date: 04/20/12 21:00:00 IVP No Longer Active Yess[place] 03/22/2012 [facility] docusate sodium 100 mg oral capsule 100 mg, 1 cap, Route: PO, Drug form: CAP, Q12H, Start date: 03/22/12 9:00:00, Duration: 30 day, Stop date: 04/20/12 21:00:00 PO No Longer Active [place] 03/22/2012 [facility] nter lisinopril 20 mg, 1 tab, Route : PO, Drug form: TAB, Daily, Start date: 03/22/12 9:00:00, Duration: 30 day, Stop date: 04/20/12 9:00:00 PO No Longer Active [place] 03/22/2012 [facility] Plavix 75 mg, 1 tab, Route: PO , Drug form: TAB, Daily, Start date: 03/22/12 9:00:00, Duration: 30 day, Stop date: 04/20/12 9:00:00 PO No Longer Active [place] 04/2012 [facility] aspirin 325 mg tablet 325 mg, 1 tab, Route: PO, Drug form: TAB, Daily, Start date: 03/22/12 9:00:00, Duration: 30 day, Stop date: 04/20/12 9:00:00 PO No Longer Active [place] 03/22/2012 [facility] nter Saline Flush 0.9% 5 ml, Route: IVP, Drug Form: INJ, PRN, PRN Line Flush, Start date: 03/22/12 8:28:00, Duration: 30 day, Stop date: 04/21/12 8:27:00 IVP No Longer Active [place] 03/22/2012 [facility] nter Sodium Chloride 0.9% IV 1,000 mL 1,000 mL, Rate: 50 ml/hr, Infuse over: 20 hr, Route: IV, Dosing Weight 90.909 kg, Total Volume: 1,000, Start date: 03/22/12 8:28:00, Duration: 30 day, Stop date: 04/21/12 8:27:00 IV No Longer Active [place] 03/22/2012 [facility] ondansetron 4 mg, 2 mL, Route: IVP, Drug form: INJ, Q8H, PRN Nausea & Vomiting, Start date: 03/22/12 8:28:00, Duration: 30 day, Stop date: 04/21/12 8:27:00 IVP No Longer Active [place] 03/22/2012 [facility] nter acetaminophen-hydrocodone 325 mg-5 mg oral tablet 2 tab, Route: PO, Drug Form: TAB, Q4H, PRN Pain Score 4-6, Start date: 03/22/12 8:28:00, Duration: 30 day, Stop date: 04/21/12 8:27:00 PO No Longer Active [place] 03/22/2012 [facility] morphine Sulfate 2 mg, 1 mL, R oute: IVP, Drug form: INJ, Q1H, PRN Pain Score 7-10, Start date: 03/22/12 8:28:00, Duration: 30 day, Stop date: 04/21/12 8:27:00 IVP No Longer Active [place] 03/22/2012 [facility] nter Plavix 300 mg, Route: PO, Drug form: TAB, ONCE, Start date: 03/22/12 8:11:00, Duration: 1 doses or times, Stop date: 03/22/12 8:11:00 PO No Longer Active [place] 2011 [facility] cefazolin 2 gm, 100 mL, Route: IVPB, Drug form: INJ, PRE OP, Priority: STAT, Start date: 03/22/12 6:22:00, Duration: 1 day, Stop date: 03/23/12 6:21:00 [facility] Plavix 75 mg oral tablet 75 mg , 1 tab, PO, Daily, 30 tab, Substitution Allowed, TAB PO No Longer Active [place] 03/14/2012 [facility] nter Aspirin Low Dose 81 mg oral tablet 81 mg, 1 tab, PO, Daily, Substitution Allowed PO No Longer Active 03/08/2012 [facility] nter Vicodin ES 7.5/750 oral tablet 1-2 tab, PO, Q4-6H, PRN, 30 tab, Pain, Substitution Allowed, Soft Stop PO No Longer Active [place] 03/08/2012 [facility] lisinopril 20 mg, PO, Daily, S ubstitution Allowed [facility] aspirin 325 mg tablet 325 mg, 1 tab, PO, Daily, 30 tab, Substitution Allowed, TAB PO No Longer Active [place] 03/22/2011 [facility] nter Allergies, Adverse Reactions, Alerts Substance Category Reaction Severity Reaction type Status Date Reported Comments Source No Known Medication Allergies Assertion Drug aller gy [facility] Immunizations Immunization Date Given Site Status Last Updated Comments Source pneumococcal 13-valent vaccine 09/21/2016 Left deltoid completed [place] [facility] Results Order Name Results Value Reference Range Date Interpretation Comments Source CHEM PANEL Magnesium Lvl 1.9 1.8 - 2.4 02/26/2020 [facility] CHEM PANEL Phosphorus 2.5 2.5 - 4.5 02/26/2020 [facility] CHEM PANEL Glucose Lvl 126 70 - 99 02/26/2020 [facility] CHEM PANEL BUN 10 7 - 22 02/26/2020 [facility] CHEM PANEL Creatinine Lvl 0.81 0.50 - 1.40 02/26/2020 [facility] CHEM PANEL Sodium Lvl 145 135 - 145 02/26/2020 [facility] CHEM PANEL Potassium Lvl 4.0 3.5 - 5.1 02/26/2020 [facility] CHEM PANEL Chloride Lvl 119 95 - 109 02/26/2020 [facility] CHEM PANEL CO2 21 24 - 32 02/26/2020 [facility] CHEM PANEL Calcium Lvl 8.0 8.5 - 10.5 02/26/2020 [facility] CHEM PANEL Total Protein 5.1 6.4 - 8.4 02/26/2020 [facility] CHEM PANEL Albumin Lvl 2.4 3.5 - 5.0 02/26/2020 [facility] CHEM PANEL ALT 22 0 - 65 02/26/2020 [facility] CHEM PANEL AST 38 0 - 37 02/26/2020 [facility] CHEM PANEL Alk Phos 97 39 - 136 02/26/2020 [facility] CHEM PANEL Bili Total 2.9 0.2 - 1.3 02/26/2020 [facility] CHEM PANEL AGAP 9.0 10.0 - 20.0 02/26/2020 [facility] CHEM PANEL B/C Ratio 12 6 - 25 02/26/2020 [facility] CHEM PANEL Globulin 2.7 2.7 - 4.2 02/26/2020 [facility] CHEM PANEL A/G Ratio 0.9 0.7 - 1.6 02/26/2020 [facility] CHEM PANEL eGFR 77 02/26/2020 Result Comment: The eGFR is calculated using the CKD-EPI formula. In most young, healthy individuals the eGFR will be >90 mL/min/1.73m2. The eGFR declines with age. An eGFR of 60-89 may be normal in some populations, particularly the elderly, for whom the CKD-EPI formula has not been extensively validated. Use of the eGFR is not recommended in the following populations:

Individuals with unstable creatinine concentrations, including patients and those with serious co-morbid conditions.

Patients with extremes in muscle mass or diet.

The data above are obtained from the National Kidney Disease Education Program (NKDEP) which additionally recommends that when the eGFR is used in patients with extremes of body mass index for purposes of drug dosing, the eGFR should be multiplied by the estimated BMI. [facility] CHEM PANEL Magnesium Lvl 1.6 1.8 - 2.4 02/26/2020 [facility] CHEM PANEL Phosphorus 2.4 2.5 - 4.5 02/26/2020 [facility] CHEM PANEL Phosphorus 1.5 2.5 - 4.5 02/25/2020 Result Comment: Critical Result(s) darron Bryant at 02/25/2020 16:03 by SHAYNA. Read back OK. [facility] CHEM PANEL Magnesium Lvl 1.6 1.8 - 2.4 02/25/2020 [facility] CHEM PANEL Glucose Lvl 144 70 - 99 02/25/2020 [facility] CHEM PANEL BUN 12 7 - 22 02/25/2020 [facility] CHEM PANEL Creatinine Lvl 0.84 0.50 - 1.40 02/25/2020 [facility] CHEM PANEL Sodium Lvl 147 135 - 145 02/25/2020 [facility] CHEM PANEL Potassium Lvl 4.3 3.5 - 5.1 02/25/2020 [facility] CHEM PANEL Chloride Lvl 119 95 - 109 02/25/2020 [facility] CHEM PANEL CO2 24 24 - 32 02/25/2020 [facility] CHEM PANEL AGAP 8.3 10.0 - 20.0 02/25/2020 [facility] CHEM PANEL Calcium Lvl 8.0 8.5 - 10.5 02/25/2020 [facility] CHEM PANEL eGFR 73 02/25/2020 Result Comment: The eGFR is calculated using the CKD-EPI formula. In most young, healthy individuals the eGFR will be >90 mL/min/1.73m2. The eGFR declines with age. An eGFR of 60-89 may be normal in some populations, particularly the elderly, for whom the CKD-EPI formula has not been extensively validated. Use of the eGFR is not recommended in the following populations:

Individuals with unstable creatinine concentrations, including patients and those with serious co-morbid conditions.

Patients with extremes in muscle mass or diet.

The data above are obtained from the National Kidney Disease Education Program (NKDEP) which additionally recommends that when the eGFR is used in patients with extremes of body mass index for purposes of drug dosing, the eGFR should be multiplied by the estimated BMI. [facility] CHEM PANEL eGFR 76 02/25/2020 Result Comment: The eGFR is calculated using the CKD-EPI formula. In most young, healthy individuals the eGFR will be >90 mL/min/1.73m2. The eGFR declines with age. An eGFR of 60-89 may be normal in some populations, particularly the elderly, for whom the CKD-EPI formula has not been extensively validated. Use of the eGFR is not recommended in the following populations:

Individuals with unstable creatinine concentrations, including patients and those with serious co-morbid conditions.

Patients with extremes in muscle mass or diet.

The data above are obtained from the National Kidney Disease Education Program (NKDEP) which additionally recommends that when the eGFR is used in patients with extremes of body mass index for purposes of drug dosing, the eGFR should be multiplied by the estimated BMI. [facility] CHEM PANEL Glucose Lvl 94 70 - 99 02/25/2020 [facility] CHEM PANEL BUN 13 7 - 22 02/25/2020 [facility] CHEM PANEL Creatinine Lvl 0.81 0.50 - 1.40 02/25/2020 [facility] CHEM PANEL Sodium Lvl 148 135 - 145 02/25/2020 [facility] CHEM PANEL Potassium Lvl 4.1 3.5 - 5.1 02/25/2020 [facility] CHEM PANEL Chloride Lvl 123 95 - 109 02/25/2020 [facility] CHEM PANEL CO2 22 24 - 32 02/25/2020 [facility] CHEM PANEL Calcium Lvl 8.0 8.5 - 10.5 02/25/2020 [facility] CHEM PANEL AGAP 7.1 10.0 - 20.0 02/25/2020 [facility] CHEM PANEL Ammonia 56.0 <=45.0 uMol/L 02/25/2020 [facility] HEMATOLOGY Segs 60.4 45.0 - 75.0 02/25/2020 [facility] Lymphocytes 20.8 20.0 - 40.0 02/25/2020 [facility] HEMATOLOGY Monocytes 11.9 2.0 - 12.0 02/25/2020 [facility] HEMATOLOGY Eosinophils 5.7 0.0 - 4.0 02/25/2020 [facility] HEMATOLOGY Basophils 1.2 0.0 - 1.0 02/25/2020 [facility] HEMATOLOGY Neutrophils # 2.7 1.5 - 8.1 02/25/2020 [facility] Lymphocytes # 0.9 1.0 - 5.5 02/25/2020 [facility] Monocytes # 0.5 0.0 - 0.8 02/25/2020 [facility] Eosinophils # 0.3 0.0 - 0.5 02/25/2020 [facility] Basophils # 0.1 0.0 - 0.2 02/25/2020 [facility] HEMATOLOGY WBC 4.4 3.7 - 10.4 02/25/2020 [facility] HEMATOLOGY RBC 2.50 4.20 - 5.40 02/25/2020 [facility] HEMATOLOGY Hgb 8.1 12.0 - 16.0 02/25/2020 [facility] HEMATOLOGY Hct 24.3 36.0 - 48.0 02/25/2020 [facility] HEMATOLOGY MCV 97.1 80.0 - 98.0 02/25/2020 [facility] HEMATOLOGY MCH 32.6 27.0 - 31.0 02/25/2020 [facility] HEMATOLOGY MCHC 33.6 32.0 - 36.0 02/25/2020 [facility] HEMATOLOGY RDW 15.7 11.5 - 14.5 02/25/2020 [facility] HEMATOLOGY Platelet 61 133 - 450 02/25/2020 [facility] HEMATOLOGY MPV 9.8 7.4 - 10.4 02/25/2020 [facility] HEMATOLOGY Segs 61.9 45.0 - 75.0 02/24/2020 [facility] HEMATOLOGY Lymphocytes 18.3 20.0 - 40.0 02/24/2020 [facility] HEMATOLOGY Monocytes 13.4 2.0 - 12.0 02/24/2020 [facility] HEMATOLOGY Eosinophils 5.7 0.0 - 4.0 02/24/2020 [facility] HEMATOLOGY Basophils 0.7 0.0 - 1.0 02/24/2020 [facility] HEMATOLOGY Neutrophils # 2.5 1.5 - 8.1 02/24/2020 [facility] HEMATOLOGY Lymphocytes # 0.7 1.0 - 5.5 02/24/2020 [facility] HEMATOLOGY Monocytes # 0.5 0.0 - 0.8 02/24/2020 [facility] HEMATOLOGY Eosinophils # 0.2 0.0 - 0.5 02/24/2020 [facility] HEMATOLOGY WBC 4.0 3.7 - 10.4 02/24/2020 [facility] HEMATOLOGY RBC 2.36 4.20 - 5.40 02/24/2020 [facility] HEMATOLOGY Hgb 7.7 12.0 - 16.0 02/24/2020 [facility] HEMATOLOGY Hct 23.0 36.0 - 48.0 02/24/2020 [facility] HEMATOLOGY MCV 97.5 80.0 - 98.0 02/24/2020 [facility] HEMATOLOGY MCH 32.8 27.0 - 31.0 02/24/2020 [facility] HEMATOLOGY MCHC 33.6 32.0 - 36.0 02/24/2020 [facility] HEMATOLOGY RDW 15.3 11.5 - 14.5 02/24/2020 [facility] HEMATOLOGY Platelet 62 133 - 450 02/24/2020 [facility] HEMATOLOGY MPV 9.5 7.4 - 10.4 02/24/2020 [facility] HEMATOLOGY WBC 4.1 3.7 - 10.4 02/23/2020 [facility] HEMATOLOGY RBC 2.35 4.20 - 5.40 02/23/2020 [facility] HEMATOLOGY Hgb 7.8 12.0 - 16.0 02/23/2020 [facility] HEMATOLOGY Hct 22.9 36.0 - 48.0 02/23/2020 [facility] HEMATOLOGY MCV 97.5 80.0 - 98.0 02/23/2020 [facility] HEMATOLOGY MCH 33.3 27.0 - 31.0 02/23/2020 [facility] HEMATOLOGY MCHC 34.1 32.0 - 36.0 02/23/2020 [facility] HEMATOLOGY RDW 15.4 11.5 - 14.5 02/23/2020 [facility] HEMATOLOGY Platelet 59 133 - 450 02/23/2020 [facility] HEMATOLOGY MPV 9.3 7.4 - 10.4 02/23/2020 [facility] HEMATOLOGY Segs 60.9 45.0 - 75.0 02/23/2020 [facility] HEMATOLOGY Lymphocytes 18.5 20.0 - 40.0 02/23/2020 [facility] HEMATOLOGY Monocytes 13.7 2.0 - 12.0 02/23/2020 [facility] HEMATOLOGY Eosinophils 6.4 0.0 - 4.0 02/23/2020 [facility] HEMATOLOGY Basophils 0.5 0.0 - 1.0 02/23/2020 [facility] HEMATOLOGY Neutrophils # 2.5 1.5 - 8.1 02/23/2020 [facility] HEMATOLOGY Lymphocytes # 0.8 1.0 - 5.5 02/23/2020 [facility] HEMATOLOGY Monocytes # 0.6 0.0 - 0.8 02/23/2020 [facility] HEMATOLOGY Eosinophils # 0.3 0.0 - 0.5 02/23/2020 [facility] CHEM PANEL Ammonia 57.0 <=45.0 uMol/L 02/21/2020 [facility] CHEM PANEL Ammonia 62.0 <=45.0 uMol/L 02/21/2020 [facility] CHEM PANEL Total Protein 5.6 6.4 - 8.4 02/21/2020 [facility] CHEM PANEL Albumin Lvl 2.8 3.5 - 5.0 02/21/2020 [facility] CHEM PANEL ALT 23 0 - 65 02/21/2020 [facility] CHEM PANEL AST 31 0 - 37 02/21/2020 [facility] CHEM PANEL Alk Phos 100 39 - 136 02/21/2020 [facility] CHEM PANEL Bili Total 1.9 0.2 - 1.3 02/21/2020 [facility] CHEM PANEL B/C Ratio 27 6 - 25 02/21/2020 [facility] CHEM PANEL Globulin 2.8 2.7 - 4.2 02/21/2020 [facility] CHEM PANEL A/G Ratio 1.0 0.7 - 1.6 02/21/2020 [facility] HEMATOLOGY RBC Morph Alison l (02/20/20 6:17 AM) Normal 02/20/2020 [facility] HEMATOLOGY Plt Morph Alison l (02/20/20 6:17 AM) Normal 02/20/2020 [facility] BLOOD BANK RESULTS RBC product Product available 5 (02/19/20 6:49 AM) 02/19/2020 Result Comment: 02/19/2020 0 7:59 [id number]
notified Yuliya [facility] BLOOD BANK RESULTS Platelet product Product available 4 (02/19/20 6:49 AM) 02/19/2020 Result Comment: 02/19/2020 0 8:00 [id number]
notified Yuliya [facility] CHEM PANEL Total Protein 6.0 6.4 - 8.4 02/19/2020 [facility] CHEM PANEL Albumin Lvl 3.2 3.5 - 5.0 02/19/2020 [facility] CHEM PANEL ALT 25 0 - 65 02/19/2020 [facility] CHEM PANEL AST 44 0 - 37 02/19/2020 [facility] CHEM PANEL Alk Phos 92 39 - 136 02/19/2020 [facility] CHEM PANEL Bili Total 2.0 0.2 - 1.3 02/19/2020 [facility] CHEM PANEL Bili Direct 0.8 0.0 - 0.3 02/19/2020 [facility] CHEM PANEL Globulin 2.8 2.7 - 4.2 02/19/2020 [facility] CHEM PANEL A/G Ratio 1.1 0.7 - 1.6 02/19/2020 [facility] CHEM PANEL Bili Indirect 1.2 0.0 - 1.0 02/19/2020 [facility] CHEM PANEL Procalcitonin Lvl 0.58 0.00 - 0.10 02/19/2020 [facility] HEMATOLOGY PT 25.2 12.0 - 14.7 02/19/2020 [facility] HEMATOLOGY INR 2.24 0.85 - 1.17 02/19/2020 [facility] HEMATOLOGY PTT 46.4 22.9 - 35.8 02/19/2020 [facility] PARATHYROID PROFILE Ca Ion WB 1.12 1.05 - 1.25 02/19/2020 [facility] PARATHYROID PROFILE Ca Norm WB 1.11 1.05 - 1.25 02/19/2020 [facility] CHEM PANEL Bili Direct 0.9 0.0 - 0.3 02/18/2020 [facility] CHEM PANEL Bili Indirect 1.5 0.0 - 1.0 02/18/2020 [facility] HEMATOLOGY PT 25.1 12.0 - 14.7 02/18/2020 [facility] HEMATOLOGY INR 2.23 0.85 - 1.17 02/18/2020 [facility] CHEM PANEL Bili Direct 1.0 0.0 - 0.3 02/18/2020 [facility] CHEM PANEL Bili Indirect 1.4 0.0 - 1.0 02/18/2020 [facility] HEMATOLOGY Basophils # 0.1 0.0 - 0.2 02/18/2020 [facility] CHEM PANEL Procalcitonin Lvl 0.46 0.00 - 0.10 02/18/2020 [facility] ENDOCRINOLOGY Cortisol 25.1 02/18/2020 [facility] HEMATOLOGY Basophils # 0.1 0.0 - 0.2 02/17/2020 [facility] CHEM PANEL B/C Ratio 19 6 - 25 02/17/2020 [facility] URINE CHEM U Sodium 10 02/16/2020 [facility] URINE CHEM U Creatinine 272.00 02/16/2020 [facility] URINE CHEM U Protein 22.0 02/16/2020 [facility] URINE CHEM U Prot/Creat 0.08 02/16/2020 [facility] IMMUNOLOGY Coronavirus (COVID-19) NA A Not Detected (02/16/20 5:26 AM) Not Detected 02/16/2020 [facility] URINE AND STOOL UA Color Yellow *NA* (02/16/20 5:24 AM) Yellow 02/16/2020 [facility] URINE AND STOOL UA Turbidity Marked *ABN* (02/16/20 5:24 AM) Clear 02/16/2020 [facility] URINE AND STOOL UA Spec Grav 1.014 <=1.030 02/16/2020 [facility] URINE AND STOOL UA pH 5.0 5.0 - 8.0 02/16/2020 [facility] URINE AND STOOL UA Protein Negative mg/dL Negative mg/dL 02/16/2020 [facility] URINE AND STOOL UA Glucose Negative mg/dL Negative mg/dL 02/16/2020 [facility] URINE AND STOOL UA Ketones Negative mg/dL Negative mg/dL 02/16/2020 [facility] URINE AND STOOL UA Bili Negative *NA* (02/16/20 5:24 AM) Negative 02/16/2020 [facility] URINE AND STOOL UA Blood Negative (02/16/20 5:24 AM) Negative 02/16/2020 [facility] URINE AND STOOL UA Nitrite Negative (02/16/20 5:24 AM) Negative 02/16/2020 [facility] URINE AND STOOL UA Leuk Est Negative (02/16/20 5:24 AM) Negative 02/16/2020 [facility] URINE AND STOOL UA Sq Epi Occasional /LPF Few /LPF 02/16/2020 [facility] URINE AND STOOL UA WBC 1 0 - 5 02/16/2020 [facility] URINE AND STOOL UA RBC <1 0 - 2 02/16/2020 [facility] URINE AND STOOL UA Bacteria Few /HPF None Seen /HPF 02/16/2020 [facility] URINE AND STOOL UA Urobilinogen <=1.0 mg/dL 0.1 - 1.0 02/16/2020 [facility] URINE CHEM U Sodium 18 02/16/2020 [facility] URINE CHEM U Potassium 27.7 02/16/2020 [facility] URINE CHEM U Chloride 20 02/16/2020 [facility] IMMUNOLOGY Coronavirus (COVID-19) NA A See Note 7 (02/16/20 3:16 AM) Not Detected 02/16/2020 Result Comment: Namita t result invalid. New specimen required for repeat testing. [facility] URINE AND STOOL Occult Bld Stl Positive *ABN* (02/16/20 3:16 AM) Negative 02/16/2020 [facility] BLOOD BANK RESULTS ABO/Rh A POS 02/16/2020 [facility] BLOOD [facility] RESULTS Antibody Scrn Negative (02/16/20 12:00 AM) 02/16/2020 [facility] CARDIAC ENZYMES Total CK 59 12 - 191 02/16/2020 [facility] CARDIAC ENZYMES Troponin-I <0.02 0.00 - 0.40 02/16/2020 [facility] CARDIAC ENZYMES BNP 114 <=100 pg/mL 02/16/2020 [facility] HEMATOLOGY PT 20.5 12.0 - 14.7 02/16/2020 [facility] HEMATOLOGY INR 1.73 0.85 - 1.17 02/16/2020 [facility] HEMATOLOGY PTT 34.5 22.9 - 35.8 02/16/2020 [facility] CHEM PANEL AST 30 0 - 37 10/18/2016 [facility] CHEM PANEL Bili Direct 0.6 0.0 - 0.3 10/18/2016 [facility] CHEM PANEL Bili Total 1.7 0.2 - 1.3 10/18/2016 [facility] CHEM PANEL Alk Phos 129 39 - 136 10/18/2016 [facility] CHEM PANEL ALT 28 0 - 65 10/18/2016 [facility] CHEM PANEL Albumin Lvl 2.2 3.5 - 5.0 10/18/2016 [facility] CHEM PANEL Total Protein 5.8 6.4 - 8.4 10/18/2016 [facility] CHEM PANEL Bili Indirect 1.1 0.0 - 1.0 10/18/2016 [facility] CHEM PANEL A/G Ratio 0.6 0.7 - 1.6 10/18/2016 [facility] CHEM PANEL Globulin 3.6 2.7 - 4.2 10/18/2016 [facility] ELECTROLYTES AGAP 12.0 10.0 - 20.0 10/18/2016 [facility] ELECTROLYTES eGFR 94 10/18/2016 Result Comment: The eGFR is calculated using the CKD-EPI formula. In most young, healthy individuals the eGFR will be >90 mL/min/1.73m2. The eGFR declines with age. An eGFR of 60-89 may be normal in some populations, particularly the elderly, for whom the CKD-EPI formula has not been extensively validated. Use of the eGFR is not recommended in the following populations:

Individuals with unstable creatinine concentrations, including patients and those with serious co-morbid conditions.

Patients with extremes in muscle mass or diet.

The data above are obtained from the National Kidney Disease Education Program (NKDEP) which additionally recommends that when the eGFR is used in patients with extremes of body mass index for purposes of drug dosing, the eGFR should be multiplied by the estimated BMI. [facility] ELECTROLYTES Calcium Lvl 7.6 8.5 - 10.5 10/18/2016 [facility] ELECTROLYTES Chloride Lvl 109 95 - 109 10/18/2016 [facility] ELECTROLYTES CO2 24 24 - 32 10/18/2016 [facility] ELECTROLYTES Potassium Lvl 4.0 3.5 - 5.1 10/18/2016 [facility] ELECTROLYTES Sodium Lvl 141 135 - 145 10/18/2016 [facility] ELECTROLYTES Glucose Lvl 142 70 - 99 10/18/2016 [facility] ELECTROLYTES BUN 8 7 - 22 10/18/2016 [facility] ELECTROLYTES Creatinine Lvl 0.6 8 0.50 - 1.40 10/18/2016 [facility] HEMATOLOGY Platelet 50 133 - 450 10/18/2016 [facility] HEMATOLOGY PTT 36.7 22.9 - 35.8 10/18/2016 [facility] HEMATOLOGY INR 1.51 0.85 - 1.17 10/18/2016 [facility] HEMATOLOGY PT 18.5 12.0 - 14.7 10/18/2016 [facility] HEMATOLOGY WBC 3.3 3.7 - 10.4 10/18/2016 [facility] CHEM PANEL Lipase Lvl 238 73 - 393 09/21/2016 [facility] CHEM PANEL Ammonia 66.0 <=45.0 uMol/L 09/21/2016 [facility] CHEM PANEL Lactic Acid Lvl 1.2 0.5 - 2.2 09/21/2016 [facility] CHEM PANEL B/C Ratio 9 6 - 25 09/21/2016 [facility] CHEM PANEL Globulin 3.6 2.7 - 4.2 09/21/2016 [facility] CHEM PANEL AGAP 9.5 10.0 - 20.0 09/21/2016 [facility] CHEM PANEL A/G Ratio 0.6 0.7 - 1.6 09/21/2016 [facility] CHEM PANEL AST 41 0 - 37 09/21/2016 [facility] CHEM PANEL Bili Total 1.5 0.2 - 1.3 09/21/2016 [facility] CHEM PANEL Alk Phos 139 39 - 136 09/21/2016 [facility] CHEM PANEL eGFR 102 09/21/2016 Result Comment: The eGFR is calculated using the CKD-EPI formula. In most young, healthy individuals the eGFR will be >90 mL/min/1.73m2. The eGFR declines with age. An eGFR of 60-89 may be normal in some populations, particularly the elderly, for whom the CKD-EPI formula has not been extensively validated. Use of the eGFR is not recommended in the following populations:

Individuals with unstable creatinine concentrations, including patients and those with serious co-morbid conditions.

Patients with extremes in muscle mass or diet.

The data above are obtained from the National Kidney Disease Education Program (NKDEP) which additionally recommends that when the eGFR is used in patients with extremes of body mass index for purposes of drug dosing, the eGFR should be multiplied by the estimated BMI. [facility] CHEM PANEL Albumin Lvl 2.1 3.5 - 5.0 09/21/2016 [facility] CHEM PANEL ALT 23 0 - 65 09/21/2016 [facility] CHEM PANEL BUN 5 7 - 22 09/21/2016 [facility] CHEM PANEL Glucose Lvl 75 70 - 99 09/21/2016 [facility] CHEM PANEL Potassium Lvl 3.5 3.5 - 5.1 09/21/2016 [facility] CHEM PANEL Sodium Lvl 144 135 - 145 09/21/2016 [facility] CHEM PANEL Creatinine Lvl 0.53 0.50 - 1.40 09/21/2016 [facility] CHEM PANEL CO2 23 24 - 32 09/21/2016 [facility] CHEM PANEL Total Protein 5.7 6.4 - 8.4 09/21/2016 [facility] CHEM PANEL Chloride Lvl 115 95 - 109 09/21/2016 [facility] CHEM PANEL Calcium Lvl 7.3 8.5 - 10.5 09/21/2016 [facility] HEMATOLOGY Monocytes # 0.3 0.0 - 0.8 09/21/2016 [facility] Eosinophils # 0.2 0.0 - 0.5 09/21/2016 [facility] HEMATOLOGY Eosinophils 4.1 0.0 - 4.0 09/21/2016 [facility] Lymphocytes # 1.1 1.0 - 5.5 09/21/2016 [facility] Basophils 0.7 0.0 - 1.0 09/21/2016 [facility] Segs-Bands # 2.4 1.5 - 8.1 09/21/2016 [facility] HEMATOLOGY Segs 59.0 45.0 - 75.0 09/21/2016 [facility] Lymphocytes 27.6 20.0 - 40.0 09/21/2016 [facility] Monocytes 8.6 2.0 - 12.0 09/21/2016 [facility] MPV 10.0 7.4 - 10.4 09/21/2016 [facility] MCHC 34.4 32.0 - 36.0 09/21/2016 [facility] MCH 31.1 27.0 - 31.0 09/21/2016 [facility] RDW 15.6 11.5 - 14.5 09/21/2016 [facility] HEMATOLOGY Platelet 48 133 - 450 09/21/2016 [facility] HEMATOLOGY MCV 90.4 80.0 - 98.0 09/21/2016 [facility] HEMATOLOGY WBC 4.0 3.7 - 10.4 09/21/2016 [facility] HEMATOLOGY Hct 28.7 36.0 - 48.0 09/21/2016 [facility] HEMATOLOGY RBC 3.18 4.20 - 5.40 09/21/2016 [facility] HEMATOLOGY Hgb 9.9 12.0 - 16.0 09/21/2016 [facility] IMMUNOLOGY CLEO Interp Patte rn appears speckled 09/21/2016 [facility] IMMUNOLOGY CLEO Titer 1:160 *ABN* (09/21/16 4:16 AM) Negative 09/21/2016 [facility] Hep Bs Ag Negat aristeo *NA* (09/21/16 4:16 AM) Negative 09/21/2016 [facility] Hep A IgM Negat aristeo *NA* (09/21/16 4:16 AM) Negative 09/21/2016 [facility] Hep C Ab Negat aristeo *NA* (09/21/16 4:16 AM) 09/21/2016 [facility] Hep B Core IgM Negat aristeo *NA* (09/21/16 4:16 AM) Negative 09/21/2016 [facility] CLEO Posit aristeo *ABN* (09/21/16 4:16 AM) Negative 09/21/2016 [facility] LIPIDS CHD Risk 3.00 3.90 - 5.80 09/21/2016 [facility] LIPIDS VLDL 9 09/21/2016 [facility] LIPIDS LDL (Calculated) 63 <=99 mg/dL 09/21/2016 [facility] LIPIDS HDL 36 >=61 mg/dL 09/21/2016 [facility] LIPIDS Chol 108 <=199 mg/dL 09/21/2016 [facility] LIPIDS Trig 44 <=149 mg/dL 09/21/2016 [facility] ANEMIA STUDY Folate Lvl 19.6 >=3.0 ng/mL 09/20/2016 [facility] ANEMIA STUDY Vitamin B12 Lvl 670 254 - 1320 09/20/2016 [facility] ANEMIA STUDY % Satur Fe 34 12 - 57 09/20/2016 [facility] ANEMIA STUDY TIBC 157 228 - 428 09/20/2016 [facility] ANEMIA STUDY UIBC 104 110 - 370 09/20/2016 [facility] ANEMIA STUDY Iron 53 30 - 160 09/20/2016 [facility] ANEMIA STUDY Ferritin Lvl 15 5 - 204 09/20/2016 [facility] CHEM PANEL B/C Ratio 15 6 - 25 09/20/2016 [facility] CHEM PANEL AGAP 10.8 10.0 - 20.0 09/20/2016 [facility] CHEM PANEL A/G Ratio 0.6 0.7 - 1.6 09/20/2016 [facility] CHEM PANEL Globulin 3.3 2.7 - 4.2 09/20/2016 [facility] CHEM PANEL eGFR 107 09/20/2016 Result Comment: The eGFR is calculated using the CKD-EPI formula. In most young, healthy individuals the eGFR will be >90 mL/min/1.73m2. The eGFR declines with age. An eGFR of 60-89 may be normal in some populations, particularly the elderly, for whom the CKD-EPI formula has not been extensively validated. Use of the eGFR is not recommended in the following populations:

Individuals with unstable creatinine concentrations, including patients and those with serious co-morbid conditions.

Patients with extremes in muscle mass or diet.

The data above are obtained from the National Kidney Disease Education Program (NKDEP) which additionally recommends that when the eGFR is used in patients with extremes of body mass index for purposes of drug dosing, the eGFR should be multiplied by the estimated BMI. [facility] CHEM PANEL Chloride Lvl 116 95 - 109 09/20/2016 [facility] CHEM PANEL Potassium Lvl 3.8 3.5 - 5.1 09/20/2016 [facility] CHEM PANEL Sodium Lvl 145 135 - 145 09/20/2016 [facility] CHEM PANEL Creatinine Lvl 0.46 0.50 - 1.40 09/20/2016 [facility] CHEM PANEL BUN 7 7 - 22 09/20/2016 [facility] CHEM PANEL Glucose Lvl 75 70 - 99 09/20/2016 [facility] CHEM PANEL Bili Total 1.8 0.2 - 1.3 09/20/2016 [facility] CHEM PANEL Alk Phos 119 39 - 136 09/20/2016 [facility] CHEM PANEL AST 37 0 - 37 09/20/2016 [facility] CHEM PANEL ALT 20 0 - 65 09/20/2016 [facility] CHEM PANEL Albumin Lvl 1.9 3.5 - 5.0 09/20/2016 [facility] CHEM PANEL Total Protein 5.2 6.4 - 8.4 09/20/2016 [facility] CHEM PANEL Calcium Lvl 7.1 8.5 - 10.5 09/20/2016 [facility] CHEM PANEL CO2 22 24 - 32 09/20/2016 [facility] HEMATOLOGY Basophils 0.6 0.0 - 1.0 09/20/2016 [facility] HEMATOLOGY Segs-Bands # 2.0 1.5 - 8.1 09/20/2016 [facility] HEMATOLOGY Lymphocytes # 1.1 1.0 - 5.5 09/20/2016 [facility] HEMATOLOGY Monocytes # 0.3 0.0 - 0.8 09/20/2016 [facility] HEMATOLOGY Eosinophils # 0.1 0.0 - 0.5 09/20/2016 [facility] HEMATOLOGY Segs 55.3 45.0 - 75.0 09/20/2016 [facility] Lymphocytes 30.8 20.0 - 40.0 09/20/2016 [facility] Monocytes 9.4 2.0 - 12.0 09/20/2016 [facility] Eosinophils 3.9 0.0 - 4.0 09/20/2016 [facility] PT 21.6 12.0 - 14.7 09/20/2016 [facility] INR 1.84 0.85 - 1.17 09/20/2016 [facility] RDW 15.4 11.5 - 14.5 09/20/2016 [facility] MPV 10.6 7.4 - 10.4 09/20/2016 [facility] Platelet 46 133 - 450 09/20/2016 [facility] Hgb 9.3 12.0 - 16.0 09/20/2016 [facility] RBC 2.98 4.20 - 5.40 09/20/2016 [facility] WBC 3.6 3.7 - 10.4 09/20/2016 [facility] MCH 31.1 27.0 - 31.0 09/20/2016 [facility] MCHC 34.5 32.0 - 36.0 09/20/2016 [facility] HEMATOLOGY Hct 26.9 36.0 - 48.0 09/20/2016 [facility] MCV 90.1 80.0 - 98.0 09/20/2016 [facility] HEMATOLOGY Retic Auto 2.0 0.5 - 1.5 09/20/2016 [facility] Hep C Ab Negat aristeo *NA* (09/20/16 6:29 AM) 09/20/2016 [facility] IMMUNOLOGY Hep B Core IgM Negat aristeo *NA* (09/20/16 6:29 AM) Negative 09/20/2016 [facility] IMMUNOLOGY Hep Bs Ag Negat aristeo *NA* (09/20/16 6:29 AM) Negative 09/20/2016 [facility] IMMUNOLOGY Hep A IgM Negat aristeo *NA* (09/20/16 6:29 AM) Negative 09/20/2016 [facility] IMMUNOLOGY Hep C Ab Negat aristeo *NA* (09/20/16 6:29 AM) 09/20/2016 [facility] IMMUNOLOGY Hep B Core IgM Negat aristeo *NA* (09/20/16 6:29 AM) Negative 09/20/2016 [facility] IMMUNOLOGY Hep A IgM Negat aristeo *NA* (09/20/16 6:29 AM) Negative 09/20/2016 [facility] Hep Bs Ag Negat aristeo *NA* (09/20/16 6:29 AM) Negative 09/20/2016 [facility] Hep A Tot Posit aristeo *NA* (09/20/16 6:29 AM) Negative 09/20/2016 [facility] Hep C Ab Negat aristeo *NA* (09/20/16 6:29 AM) 09/20/2016 [facility] Hep Bs Ab <3.1 <=7.4 mIU/mL 09/20/2016 [facility] CHEM PANEL Magnesium Lvl 2.1 1.8 - 2.4 09/19/2016 [facility] CHEM PANEL eGFR 105 09/19/2016 Result Comment: The eGFR is calculated using the CKD-EPI formula. In most young, healthy individuals the eGFR will be >90 mL/min/1.73m2. The eGFR declines with age. An eGFR of 60-89 may be normal in some populations, particularly the elderly, for whom the CKD-EPI formula has not been extensively validated. Use of the eGFR is not recommended in the following populations:

Individuals with unstable creatinine concentrations, including patients and those with serious co-morbid conditions.

Patients with extremes in muscle mass or diet.

The data above are obtained from the National Kidney Disease Education Program (NKDEP) which additionally recommends that when the eGFR is used in patients with extremes of body mass index for purposes of drug dosing, the eGFR should be multiplied by the estimated BMI. [facility] CHEM PANEL Creatinine Lvl 0.49 0.50 - 1.40 09/19/2016 [facility] CHEM PANEL Potassium Lvl 3.6 3.5 - 5.1 09/19/2016 [facility] CHEM PANEL Sodium Lvl 146 135 - 145 09/19/2016 [facility] CHEM PANEL CO2 21 24 - 32 09/19/2016 [facility] CHEM PANEL Chloride Lvl 116 95 - 109 09/19/2016 [facility] CHEM PANEL ALT 21 0 - 65 09/19/2016 [facility] CHEM PANEL Calcium Lvl 7.4 8.5 - 10.5 09/19/2016 [facility] CHEM PANEL BUN 10 7 - 22 09/19/2016 [facility] CHEM PANEL Albumin Lvl 2.2 3.5 - 5.0 09/19/2016 [facility] CHEM PANEL Total Protein 5.9 6.4 - 8.4 09/19/2016 [facility] CHEM PANEL Glucose Lvl 73 70 - 99 09/19/2016 [facility] CHEM PANEL Alk Phos 128 39 - 136 09/19/2016 [facility] CHEM PANEL AST 34 0 - 37 09/19/2016 [facility] CHEM PANEL Bili Total 1.5 0.2 - 1.3 09/19/2016 [facility] CHEM PANEL A/G Ratio 0.6 0.7 - 1.6 09/19/2016 [facility] CHEM PANEL Globulin 3.7 2.7 - 4.2 09/19/2016 [facility] CHEM PANEL B/C Ratio 20 6 - 25 09/19/2016 [facility] CHEM PANEL AGAP 12.6 10.0 - 20.0 09/19/2016 [facility] HEMATOLOGY Lymphocytes # 1.2 1.0 - 5.5 09/19/2016 [facility] HEMATOLOGY Monocytes # 0.4 0.0 - 0.8 09/19/2016 [facility] HEMATOLOGY Monocytes 8.2 2.0 - 12.0 09/19/2016 [facility] HEMATOLOGY Lymphocytes 27.5 20.0 - 40.0 09/19/2016 [facility] HEMATOLOGY Eosinophils # 0.1 0.0 - 0.5 09/19/2016 [facility] HEMATOLOGY Segs-Bands # 2.7 1.5 - 8.1 09/19/2016 [facility] HEMATOLOGY Basophils 0.6 0.0 - 1.0 09/19/2016 [facility] HEMATOLOGY Eosinophils 2.3 0.0 - 4.0 09/19/2016 [facility] HEMATOLOGY Segs 61.4 45.0 - 75.0 09/19/2016 [facility] HEMATOLOGY MCHC 34.4 32.0 - 36.0 09/19/2016 [facility] HEMATOLOGY Platelet 60 133 - 450 09/19/2016 [facility] HEMATOLOGY RDW 15.3 11.5 - 14.5 09/19/2016 [facility] HEMATOLOGY MCH 31.1 27.0 - 31.0 09/19/2016 [facility] HEMATOLOGY MCV 90.4 80.0 - 98.0 09/19/2016 [facility] HEMATOLOGY MPV 10.6 7.4 - 10.4 09/19/2016 [facility] HEMATOLOGY Hct 29.6 36.0 - 48.0 09/19/2016 [facility] HEMATOLOGY Hgb 10.2 12.0 - 16.0 09/19/2016 [facility] HEMATOLOGY RBC 3.28 4.20 - 5.40 09/19/2016 [facility] WBC 4.4 3.7 - 10.4 09/19/2016 [facility] CHEM PANEL Lactic Acid Lvl 1.9 0.5 - 2.2 09/18/2016 [facility] CHEM PANEL Lipase Lvl 275 73 - 393 09/18/2016 [facility] VIRAL - SEROLOGY Influ A Negative (09/18/16 2:48 PM) Negative 09/18/2016 [facility] VIRAL - SEROLOGY Influ B Negative (09/18/16 2:48 PM) Negative 09/18/2016 [facility] CARDIAC ENZYMES Troponin-I <0.02 0.00 - 0.40 09/18/2016 [facility] CARDIAC ENZYMES CK MB 1.4 0.5 - 3.6 09/18/2016 [facility] CARDIAC ENZYMES Total CK 73 12 - 191 09/18/2016 [facility] CARDIAC ENZYMES CK MB Index 1.9 0.0 - 2.5 09/18/2016 [facility] CHEM PANEL Lactic Acid Lvl 2.6 0.5 - 2.2 09/18/2016 [facility] DRUG SCREEN UDS Note See Note *NA* (09/18/16 2:45 PM) 09/18/2016 [facility] DRUG SCREEN U Benzodia Scr Nega tive *NA* (09/18/16 2:45 PM) Negative 09/18/2016 [facility] DRUG SCREEN U Phencyc Scr Nega tive *NA* (09/18/16 2:45 PM) Negative 09/18/2016 [facility] DRUG SCREEN U Cocaine Scr Nega tive *NA* (09/18/16 2:45 PM) Negative 09/18/2016 [facility] DRUG SCREEN U Cannab Scr Nega tive *NA* (09/18/16 2:45 PM) Negative 09/18/2016 [facility] DRUG SCREEN U Opiate Scr Nega tive *NA* (09/18/16 2:45 PM) Negative 09/18/2016 [facility] DRUG SCREEN U Angela Scr Nega tive *NA* (09/18/16 2:45 PM) Negative 09/18/2016 [facility] DRUG SCREEN U Amph Scr Nega tive *NA* (09/18/16 2:45 PM) Negative 09/18/2016 [facility] TOXICOLOGY Etoh (%) <0.003 09/18/2016 [facility] TOXICOLOGY Ethanol Lvl <3 09/18/2016 [facility] URINE AND STOOL UA Sq Epi Occasional /LPF Few /LPF 09/18/2016 [facility] URINE AND STOOL UA Leuk Est Negative (09/18/16 2:45 PM) Negative 09/18/2016 [facility] URINE AND STOOL UA WBC 1 0 - 5 09/18/2016 [facility] URINE AND STOOL UA Nitrite Negative (09/18/16 2:45 PM) Negative 09/18/2016 [facility] URINE AND STOOL UA RBC 1 0 - 2 09/18/2016 [facility] URINE AND STOOL UA Urobilinogen 4.0 0.1 - 1.0 09/18/2016 [facility] URINE AND STOOL UA pH 6.0 5.0 - 8.0 09/18/2016 [facility] URINE AND STOOL UA Turbidity Clear (09/18/16 2:45 PM) Clear 09/18/2016 [facility] URINE AND STOOL UA Spec Grav 1.027 <=1.030 09/18/2016 [facility] URINE AND STOOL UA Amorph Nadia Occasional /HPF None Seen /HPF 09/18/[address] [facility] [address] URINE AND STOOL UA Mucus Few /LPF None Seen /LPF 09/18/2016 [facility] URINE AND STOOL UA Color Natalee 09/18/2016 [facility] URINE AND STOOL UA Blood Negative (09/18/16 2:45 PM) Negative 09/18/2016 [facility] URINE AND STOOL UA Glucose Negative mg/dL Negative mg/dL 09/18/[address] [facility] [address] URINE AND STOOL UA Protein Negative mg/dL Negative mg/dL 09/18/[address] [facility] [address] URINE AND STOOL UA Bili Negative *NA* (09/18/16 2:45 PM) Negative 09/18/2016 [facility] URINE AND STOOL UA Ketones Negative mg/dL Negative mg/dL 09/18/2016 [facility] CARDIAC ENZYMES Troponin-I <0.02 0.00 - 0.40 04/29/2016 [facility] URINE AND STOOL UA WBC 7 0 - 5 04/29/2016 [facility] URINE AND STOOL UA Sq Epi Occasional /LPF Few /LPF 04/29/2016 [facility] URINE AND STOOL UA RBC 1 0 - 2 04/29/2016 [facility] URINE AND STOOL UA Mucus Few /LPF None Seen /LPF 04/29/2016 [facility] URINE AND STOOL UA Bacteria Many /HPF None Seen /HPF 04/29/2016 [facility] URINE AND STOOL UA Ketones Negative mg/dL Negative mg/dL 04/29/2016 [facility] URINE AND STOOL UA Urobilinogen 2.0 0.1 - 1.0 04/29/2016 [facility] URINE AND STOOL UA Nitrite Positive *ABN* (04/29/16 1:18 AM) Negative 04/29/2016 [facility] URINE AND STOOL UA Bili Negative *NA* (04/29/16 1:18 AM) Negative 04/29/2016 [facility] URINE AND STOOL UA Blood Small *ABN* (04/29/16 1:18 AM) Negative 04/29/2016 [facility] URINE AND STOOL UA Protein Negative mg/dL Negative mg/dL 04/29/2016 [facility] URINE AND STOOL UA Glucose Negative mg/dL Negative mg/dL 04/29/2016 [facility] URINE AND STOOL UA Leuk Est Small *ABN* (04/29/16 1:18 AM) Negative 04/29/2016 [facility] URINE AND STOOL UA pH 5.0 5.0 - 8.0 04/29/2016 [facility] URINE AND STOOL UA Color Yellow *NA* (04/29/16 1:18 AM) Yellow 04/29/2016 [facility] URINE AND STOOL UA Spec Grav 1.011 <=1.030 04/29/2016 [facility] URINE AND STOOL UA Turbidity Clear (04/29/16 1:18 AM) Clear 04/29/2016 [facility] CARDIAC ENZYMES BNP 50 <=100 pg/mL 04/29/2016 [facility] CARDIAC ENZYMES Troponin-I <0.02 0.00 - 0.40 04/29/2016 [facility] CARDIAC ENZYMES Total CK 58 12 - 191 04/29/2016 [facility] CARDIAC ENZYMES CK MB 0.9 0.5 - 3.6 04/29/2016 [facility] CARDIAC ENZYMES CK MB Index 1.6 0.0 - 2.5 04/29/2016 [facility] CHEM PANEL Bili Direct 0.6 0.0 - 0.3 04/29/2016 [facility] CHEM PANEL eGFR 94 04/29/2016 Result Comment: The eGFR is calculated using the CKD-EPI formula. In most young, healthy individuals the eGFR will be >90 mL/min/1.73m2. The eGFR declines with age. An eGFR of 60-89 may be normal in some populations, particularly the elderly, for whom the CKD-EPI formula has not been extensively validated. Use of the eGFR is not recommended in the following populations:

Individuals with unstable creatinine concentrations, including patients and those with serious co-morbid conditions.

Patients with extremes in muscle mass or diet.

The data above are obtained from the National Kidney Disease Education Program (NKDEP) which additionally recommends that when the eGFR is used in patients with extremes of body mass index for purposes of drug dosing, the eGFR should be multiplied by the estimated BMI. [facility] CHEM PANEL Globulin 4.1 2.7 - 4.2 04/29/2016 [facility] CHEM PANEL A/G Ratio 0.6 0.7 - 1.6 04/29/2016 [facility] CHEM PANEL Potassium Lvl 3.3 3.5 - 5.1 04/29/2016 [facility] CHEM PANEL Chloride Lvl 107 95 - 109 04/29/2016 [facility] CHEM PANEL Albumin Lvl 2.6 3.5 - 5.0 04/29/2016 [facility] CHEM PANEL ALT 21 0 - 65 04/29/2016 [facility] CHEM PANEL CO2 27 24 - 32 04/29/2016 [facility] CHEM PANEL Calcium Lvl 8.2 8.5 - 10.5 04/29/2016 [facility] CHEM PANEL Total Protein 6.7 6.4 - 8.4 04/29/2016 [facility] CHEM PANEL AGAP 10.3 10.0 - 20.0 04/29/2016 [facility] CHEM PANEL Bili Total 1.5 0.2 - 1.3 04/29/2016 [facility] CHEM PANEL Alk Phos 128 39 - 136 04/29/2016 [facility] CHEM PANEL AST 38 0 - 37 04/29/2016 [facility] CHEM PANEL B/C Ratio 16 6 - 25 04/29/2016 [facility] CHEM PANEL Glucose Lvl 79 70 - 99 04/29/2016 [facility] CHEM PANEL BUN 11 7 - 22 04/29/2016 [facility] CHEM PANEL Creatinine Lvl 0.70 0.50 - 1.40 04/29/2016 [facility] CHEM PANEL Sodium Lvl 141 135 - 145 04/29/2016 [facility] HEMATOLOGY PTT 32.1 22.9 - 35.8 04/29/2016 [facility] HEMATOLOGY INR 1.42 0.85 - 1.17 04/29/2016 [facility] HEMATOLOGY PT 17.7 12.0 - 14.7 04/29/2016 [facility] HEMATOLOGY MCH 30.6 27.0 - 31.0 04/29/2016 [facility] HEMATOLOGY MCV 90.3 80.0 - 98.0 04/29/2016 [facility] HEMATOLOGY Hgb 11.3 12.0 - 16.0 04/29/2016 [facility] HEMATOLOGY RBC 3.68 4.20 - 5.40 04/29/2016 [facility] HEMATOLOGY Hct 33.2 36.0 - 48.0 04/29/2016 [facility] HEMATOLOGY MPV 10.9 7.4 - 10.4 04/29/2016 [facility] HEMATOLOGY WBC 5.6 3.7 - 10.4 04/29/2016 [facility] HEMATOLOGY Platelet 52 133 - 450 04/29/2016 [facility] HEMATOLOGY RDW 15.2 11.5 - 14.5 04/29/2016 [facility] HEMATOLOGY MCHC 33.9 32.0 - 36.0 04/29/2016 [facility] HEMATOLOGY Eosinophils 2.0 0.0 - 4.0 04/29/2016 [facility] HEMATOLOGY Monocytes 8.1 2.0 - 12.0 04/29/2016 [facility] HEMATOLOGY Basophils 0.9 0.0 - 1.0 04/29/2016 [facility] HEMATOLOGY Segs 63.2 45.0 - 75.0 04/29/2016 [facility] HEMATOLOGY Lymphocytes 25.8 20.0 - 40.0 04/29/2016 [facility] HEMATOLOGY Basophils # 0.1 0.0 - 0.2 04/29/2016 [facility] HEMATOLOGY Lymphocytes # 1.4 1.0 - 5.5 04/29/2016 [facility] HEMATOLOGY Eosinophils # 0.1 0.0 - 0.5 04/29/2016 [facility] HEMATOLOGY Monocytes # 0.5 0.0 - 0.8 04/29/2016 [facility] HEMATOLOGY Segs-Bands # 3.5 1.5 - 8.1 04/29/2016 [facility] BEDSIDE GLUCOSE TESTING Comment1 Notify RN/ 03/23/2012 NA [facility] BEDSIDE GLUCOSE TESTING Gluc POC Lif scn 120 70 - 99 03/23/2012 HI <sup>1</sup>Interpretive Data: Upper Reportable Limit: 200 mg/dL. [facility] BEDSIDE GLUCOSE TESTING Comment1 Notify RN/ 03/23/2012 NA [facility] BEDSIDE GLUCOSE TESTING Gluc POC Lif scn 129 70 - 99 03/23/2012 HI <sup>2</sup>Interpretive Data: Upper Reportable Limit: 200 mg/dL. [facility] BEDSIDE GLUCOSE TESTING Gluc POC Lif scn 121 70 - 99 03/23/2012 HI <sup>3</sup>Interpretive Data: Upper Reportable Limit: 200 mg/dL. [facility] BEDSIDE GLUCOSE TESTING Comment1 Notify RN/ 03/23/2012 NA [facility] HEMATOLOGY Plav Effect Plt 60 03/23/2012 NA <sup>14</sup>Interpretive Data: Plavix ( P2Y12) Platelet Function Test:
Therapeutic - Higher % inhibition associated with expected
anti-platelet effect
Pre-Surgical - Less than 20% inhibition

Note:
Results are reported in percent inhibition (Percent change
from baseline aggregation - Calculated from the PRU result
and the Base result). For pre-operative clearance a level of
less than 20% inhibition is recommended. No definitive
relationship has been drawn between percentage inhibition
and dosage.

Interference:
Platelet counts less than 120,000 or greater than 502,000
Hematocrit values less than 33% or greater than 52%
Patient taking GP IIb/IIIa Inhibitor, e.g. ReoPro or Integrilin [facility] HEMATOLOGY ASA Effect Plt 411 03/23/2012 NA <sup>11</sup>Interpretive Data: Test res ults are reported in Aspirin Reaction Units (ARU).

350-549 ARU - Therapeutic range for platelet function
(Patient's aspirin is working effectively)

550-700 ARU - Non-therapeutic range for platelet function
(Patient is not responding to aspir in)

Values cannot be reported below 350 and above 700 for analytical
reasons with no known clinical significance.

Interferences:
-Platelet counts less than 92,000/uL.
-Hematocrit values less than 29% or greater than 56%.
-Patients taking: GP IIb/IIIa inhibitor, e.g. ReoPro
or Integrilin.
-Ingestion of NSAIDs concurrent with ASA therapy may
result in higher ARU values than ASA taken alone. [facility] CHEMISTRY CO2 19 24 - 32 03/23/2012 LOW [facility] CHEMISTRY Creatinine Lvl 0.8 0.5 - 1.4 03/23/2012 Normal [facility] CHEMISTRY Sodium Lvl 145 135 - 145 03/23/2012 Normal [facility] CHEMISTRY Potassium Lvl 3.7 3.5 - 5.1 03/23/2012 Normal [facility] CHEMISTRY Chloride Lvl 113 95 - 109 03/23/2012 [facility] CHEMISTRY Calcium Lvl 7.8 8.5 - 10.5 03/23/2012 LOW [facility] CHEMISTRY Glucose Lvl 133 70 - 99 03/23/2012 HI <sup>4</sup>Interpretive Data: Adult ref erence range values reflect the clinical guidelines
of the [place] [employer]. [facility] CHEMISTRY BUN 7 7 - 22 03/23/2012 Normal [facility] CHEMISTRY AGAP 16.7 10.0 - 20.0 03/23/2012 Normal [facility] CHEMISTRY Phosphorus 2.2 2.5 - 4.5 03/23/2012 LOW [facility] CHEMISTRY Magnesium Lvl 1.8 1.8 - 2.4 03/23/2012 Normal [facility] CHEMISTRY Ca Norm 1.22 1.16 - 1.30 03/23/2012 Normal [facility] CHEMISTRY Ca Ion 1.16 1.16 - 1.30 03/23/2012 Normal [facility] CHEMISTRY Ca Norm mgdL 4.88 4.65 - 5.20 03/23/2012 Normal [facility] CHEMISTRY Ca Ion mgdL 4.64 4.65 - 5.20 03/23/2012 [facility] HEMATOLOGY PT 15.4 12.0 - 14.7 03/23/2012 [facility] HEMATOLOGY INR 1.20 0.85 - 1.17 03/23/2012 HI <sup>7</sup>Interpretive Data: RECOMMEND ED RANGES FOR PROTIME INR:
2.0-3.0 for most medical and surgical thromboembolic states.
2.5-3.5 for artificial heart valves and recurrent embolism.

INR SHOULD BE USED ONLY FOR PATIENTS ON STABLE ANTICOAGULANT THERAPY. [facility] HEMATOLOGY PTT 32.2 22.9 - 35.8 03/23/2012 Normal <sup>9</sup>Interpretive Data: Heparin T herapeutic Range: 57 - 92 Seconds [facility] HEMATOLOGY WBC 7.8 3.7 - 10.4 03/23/2012 Normal [facility] HEMATOLOGY Hgb 11.8 12.0 - 16.0 03/23/2012 [facility] HEMATOLOGY RBC 3.77 4.20 - 5.40 03/23/2012 [facility] HEMATOLOGY Hct 34.0 36.0 - 48.0 03/23/2012 [facility] HEMATOLOGY MCH 31.4 27.0 - 31.0 03/23/2012 [facility] HEMATOLOGY Platelet 78 133 - 450 03/23/2012 [facility] HEMATOLOGY MCV 90.4 81.0 - 99.0 03/23/2012 Normal [facility] HEMATOLOGY RDW 13.6 11.5 - 14.5 03/23/2012 [facility] HEMATOLOGY MCHC 34.7 32.0 - 36.0 03/23/2012 Normal [facility] HEMATOLOGY MPV 10.4 7.4 - 10.4 03/23/2012 [facility] HEMATOLOGY Segs 80.1 45.0 - 75.0 03/23/2012 [facility] HEMATOLOGY Lymphocytes 15.4 20.0 - 40.0 03/23/2012 [facility] HEMATOLOGY Monocytes 4.3 2.0 - 12.0 03/23/2012 Normal [facility] HEMATOLOGY Monocytes # 0.3 0.0 - 0.8 03/23/2012 Normal [facility] HEMATOLOGY Basophils # 0.0 0.0 - 0.2 03/23/2012 Normal [facility] HEMATOLOGY Eosinophils # 0.0 0.0 - 0.5 03/23/2012 Normal [facility] HEMATOLOGY Basophils 0.2 0.0 - 1.0 03/23/2012 Normal [facility] HEMATOLOGY Eosinophils 0.0 0.0 - 4.0 03/23/2012 Normal [facility] HEMATOLOGY Segs-Bands # 6.2 1.5 - 8.1 03/23/2012 Normal [facility] HEMATOLOGY Lymphocytes # 1.2 1.0 - 5.5 03/23/2012 Normal [facility] HEMATOLOGY ASA Effect Plt 466 03/22/2012 NA <sup>12</sup>Interpretive Data: Test res ults are reported in Aspirin Reaction Units (ARU).

350-549 ARU - Therapeutic range for platelet function
(Patient's aspirin is working effectively)

550-700 ARU - Non-therapeutic range for platelet function
(Patient is not responding to aspir in)

Values cannot be reported below 350 and above 700 for analytical
reasons with no known clinical significance.

Interferences:
-Platelet counts less than 92,000/uL.
-Hematocrit values less than 29% or greater than 56%.
-Patients taking: GP IIb/IIIa inhibitor, e.g. ReoPro
or Integrilin.
-Ingestion of NSAIDs concurrent with ASA therapy may
result in higher ARU values than ASA taken alone. [facility] HEMATOLOGY Plav Effect Plt 51 03/22/2012 NA <sup>15</sup>Result Comment: rechecked.. called to madisyn alcala 03/22/2012 17:21:27 CDT by rve.
<sup>16</sup>Interpretive Data: Plavix (P2Y12) Platelet Function Test:
Therapeutic - Higher % inhibition associated with expected
anti-platelet effect
Pre-Surgical - Less than 20% inhibition

Note:
Results are reported in percent inhibition (Percent change
from baseline aggregation - Calculated from the PRU result
and the Base result). For pre-operative clearance a level of
less than 20% inhibition is recommended. No definitive
relationship has been drawn between percentage inhibition
and dosage.

Interference:
Platelet counts less than 120,000 or greater than 502,000
Hematocrit values less than 33% or greater than 52%
Patient taking GP IIb/IIIa Inhibitor, e.g. ReoPro or Integrilin [facility] Microbiology Culture: Urine 03/22/2012 [facility] Microbiology Culture: Resistant Acin etobacter Screen 03/22/2012 [facility] Microbiology Culture: MRSA 03/22/2012 [facility] CHEMISTRY Chloride Lvl 113 95 - 109 03/22/2012 HI [facility] CHEMISTRY CO2 22 24 - 32 03/22/2012 LOW [facility] CHEMISTRY Calcium Lvl 7.6 8.5 - 10.5 03/22/2012 LOW [facility] CHEMISTRY AGAP 13.8 10.0 - 20.0 03/22/2012 Normal [facility] CHEMISTRY Potassium Lvl 3.8 3.5 - 5.1 03/22/2012 Normal [facility] CHEMISTRY Creatinine Lvl 0.7 0.5 - 1.4 03/22/2012 Normal [facility] CHEMISTRY Sodium Lvl 145 135 - 145 03/22/2012 Normal [facility] CHEMISTRY BUN 7 7 - 22 03/22/2012 Normal [facility] CHEMISTRY Glucose Lvl 116 70 - 99 03/22/2012 HI <sup>5</sup>Interpretive Data: Adult ref erence range values reflect the clinical guidelines
of the [place] [employer]. [facility] CHEMISTRY Phosphorus 2.4 2.5 - 4.5 03/22/2012 LOW [facility] CHEMISTRY Magnesium Lvl 1.8 1.8 - 2.4 03/22/2012 Normal [facility] HEMATOLOGY Hct 35.2 36.0 - 48.0 03/22/2012 LOW [facility] HEMATOLOGY Hgb 11.9 12.0 - 16.0 03/22/2012 LOW [facility] URINALYSIS UA Urobilinogen 0.1 - 1.0 03/22/2012 NA [facility] URINALYSIS UA Nitrite Negat aristeo (03/22/2012 14:40:00) Negati ve 03/22/2012 Normal [facility] URINALYSIS UA Bili Negat aristeo *NA* (03/22/2012 14:40:00) Negati ve 03/22/2012 NA [facility] URINALYSIS UA Leuk Est Trace *ABN* (03/22/2012 14:40:00) Negati ve 03/22/2012 ABN [facility] URINALYSIS UA Blood Trace *ABN* (03/22/2012 14:40:00) Negati ve 03/22/2012 ABN [facility] URINALYSIS UA Sq Epi Occas ional /LPF *NA* (03/22/2012 14:40:00) Few 03/22/2012 NA [facility] URINALYSIS UA RBC 42 0 - 2 03/22/2012 [facility] URINALYSIS UA WBC 5 0 - 5 03/22/2012 Normal [facility] URINALYSIS UA Ketones Negat aristeo mg/dL *NA* (03/22/2012 14:40:00) Negati ve 03/22/2012 NA [facility] URINALYSIS UA Turbidity Clear (03/22/2012 14:40:00) Clear 03/22/2012 Normal [facility] URINALYSIS UA Glucose Negat aristeo mg/dL *NA* (03/22/2012 14:40:00) Negati ve 03/22/2012 NA [facility] URINALYSIS UA Protein Negat aristeo mg/dL (03/22/2012 14:40:00) Negati ve 03/22/2012 Normal [facility] URINALYSIS UA pH 6.5 5.0 - 8.0 03/22/2012 Normal [facility] URINALYSIS UA Spec Grav 1.038 <=1.030 03/22/2012 [facility] URINALYSIS UA Color Yello w *NA* (03/22/2012 14:40:00) Yellow 03/22/2012 NA [facility] CHEMISTRY POC A K 3.4 3.5 - 5.1 03/22/2012 LOW [facility] CHEMISTRY POC A Na 137 135 - 145 03/22/2012 [facility] CHEMISTRY POC A Hct 29.0 36.0 - 48.0 03/22/2012 [facility] CHEMISTRY POC A Ca Ion 1.08 1.16 - 1.30 03/22/2012 [facility] CHEMISTRY POC A LA 1.0 0.5 - 2.2 03/22/2012 [facility] CHEMISTRY POC A Glu 95 70 - 99 03/22/2012 [facility] CHEMISTRY POC A O2 Sat 99.0 95.0 - 100.0 03/22/2012 [facility] CHEMISTRY POC A BE -1 -2-2 - 2 03/22/2012 [facility] CHEMISTRY POC A PO2 151 80 - 100 03/22/2012 [facility] CHEMISTRY POC A PCO2 41 35 - 45 03/22/2012 [facility] CHEMISTRY POC A HCO3 24 22 - 26 03/22/2012 [facility] CHEMISTRY POC A pH 7.38 7.35 - 7.45 03/22/2012 Normal [facility] CHEMISTRY POC A Source ART 03/22/2012 [facility] CHEMISTRY POC A Temp 37.0 03/22/2012 [facility] HEMATOLOGY ASA Effect Plt 478 03/22/2012 NA <sup>13</sup>Interpretive Data: Test res ults are reported in Aspirin Reaction Units (ARU).

350-549 ARU - Therapeutic range for platelet function
(Patient's aspirin is working effectively)

550-700 ARU - Non-therapeutic range for platelet function
(Patient is not responding to aspir in)

Values cannot be reported below 350 and above 700 for analytical
reasons with no known clinical significance.

Interferences:
-Platelet counts less than 92,000/uL.
-Hematocrit values less than 29% or greater than 56%.
-Patients taking: GP IIb/IIIa inhibitor, e.g. ReoPro
or Integrilin.
-Ingestion of NSAIDs concurrent with ASA therapy may
result in higher ARU values than ASA taken alone. [facility] HEMATOLOGY Plav Effect Plt 23 03/22/2012 NA <sup>17</sup>Interpretive Data: Plavix ( P2Y12) Platelet Function Test:
Therapeutic - Higher % inhibition associated with expected
anti-platelet effect
Pre-Surgical - Less than 20% inhibition

Note:
Results are reported in percent inhibition (Percent change
from baseline aggregation - Calculated from the PRU result
and the Base result). For pre-operative clearance a level of
less than 20% inhibition is recommended. No definitive
relationship has been drawn between percentage inhibition
and dosage.

Interference:
Platelet counts less than 120,000 or greater than 502,000
Hematocrit values less than 33% or greater than 52%
Patient taking GP IIb/IIIa Inhibitor, e.g. ReoPro or Integrilin [facility] BLOOD BANK RESULTS RBC product Product available (03/22/2012 10:00:00) 03/22/2012 Normal [facility] BLOOD BANK RESULTS ABO/Rh A POS 03/22/2012 Unknown [facility] BLOOD BANK RESULTS Antibody Scrn Negative (03/22/2012 07:00:00) 03/22/2012 Normal [facility] CHEMISTRY Chloride Lvl 105 95 - 109 03/08/2012 Normal [facility] CHEMISTRY Calcium Lvl 9.0 8.5 - 10.5 03/08/2012 Normal [facility] CHEMISTRY CO2 26 24 - 32 03/08/2012 Normal [facility] CHEMISTRY Bili Total 0.5 0.2 - 1.3 03/08/2012 Normal [facility] CHEMISTRY AST 64 0 - 37 03/08/2012 HI [facility] CHEMISTRY Total Protein 8.3 6.4 - 8.4 03/08/2012 Normal [facility] CHEMISTRY Alk Phos 109 39 - 136 03/08/2012 Normal [facility] CHEMISTRY Sodium Lvl 142 135 - 145 03/08/2012 Normal [facility] CHEMISTRY Glucose Lvl 89 70 - 99 03/08/2012 Normal <sup>6</sup>Interpretive Data: Adult ref erence range values reflect the clinical guidelines
of the [place] [employer]. [facility] CHEMISTRY Creatinine Lvl 0.9 0.5 - 1.4 03/08/2012 Normal [facility] CHEMISTRY BUN 10 7 - 22 03/08/2012 Normal [facility] CHEMISTRY ALT 65 0 - 65 03/08/2012 Normal [facility] CHEMISTRY Albumin Lvl 3.7 3.5 - 5.0 03/08/2012 Normal [facility] CHEMISTRY Potassium Lvl 3.7 3.5 - 5.1 03/08/2012 Normal [facility] CHEMISTRY A/G Ratio 0.8 0.7 - 1.6 03/08/2012 Normal [facility] CHEMISTRY AGAP 14.7 10.0 - 20.0 03/08/2012 Normal [facility] CHEMISTRY B/C Ratio 11 6 - 25 03/08/2012 Normal [facility] CHEMISTRY Globulin 4.6 2.0 - 4.0 03/08/2012 HI [facility] HEMATOLOGY Large Plt Sligh t *ABN* (03/08/2012 14:45:00) None S een 03/08/2012 ABN [facility] HEMATOLOGY Basophils # 0.0 0.0 - 0.2 03/08/2012 Normal [facility] HEMATOLOGY Segs 55.0 45.0 - 75.0 03/08/2012 Normal [facility] HEMATOLOGY RBC Morph Alison l (03/08/2012 14:45:00) 03/08/2012 Normal [facility] HEMATOLOGY Plt Morph Alison l (03/08/2012 14:45:00) 03/08/2012 Normal [facility] HEMATOLOGY Monocytes # 0.6 0.0 - 0.8 03/08/2012 Normal [facility] HEMATOLOGY Eosinophils # 0.1 0.0 - 0.5 03/08/2012 Normal [facility] HEMATOLOGY Basophils 0.5 0.0 - 1.0 03/08/2012 Normal [facility] HEMATOLOGY Lymphocytes # 2.6 1.0 - 5.5 03/08/2012 [facility] HEMATOLOGY Segs-Bands # 4.0 1.5 - 8.1 03/08/2012 Normal [facility] HEMATOLOGY Eosinophils 1.4 0.0 - 4.0 03/08/2012 Normal [facility] HEMATOLOGY Lymphocytes 35.5 20.0 - 40.0 03/08/2012 Normal [facility] HEMATOLOGY Monocytes 7.6 2.0 - 12.0 03/08/2012 Normal [facility] HEMATOLOGY PTT 34.8 22.9 - 35.8 03/08/2012 Normal <sup>10</sup>Interpretive Data: Heparin Therapeutic Range: 57 - 92 Seconds [facility] HEMATOLOGY PT 14.7 12.0 - 14.7 03/08/2012 Normal [facility] HEMATOLOGY INR 1.15 0.85 - 1.17 03/08/2012 Normal <sup>8</sup>Interpretive Data: RECOMMEND ED RANGES FOR PROTIME INR:
2.0-3.0 for most medical and surgical thromboembolic states.
2.5-3.5 for artificial heart valves and recurrent embolism.

INR SHOULD BE USED ONLY FOR PATIENTS ON STABLE ANTICOAGULANT THERAPY. [facility] HEMATOLOGY RDW 13.2 11.5 - 14.5 03/08/2012 Normal [facility] HEMATOLOGY WBC 7.3 3.7 - 10.4 03/08/2012 Normal [facility] HEMATOLOGY MCHC 34.5 32.0 - 36.0 03/08/2012 Normal [facility] HEMATOLOGY RBC 4.62 4.20 - 5.40 03/08/2012 Normal [facility] HEMATOLOGY MCV 90.5 81.0 - 99.0 03/08/2012 Normal [facility] HEMATOLOGY MCH 31.3 27.0 - 31.0 03/08/2012 [facility] HEMATOLOGY Hgb 14.4 12.0 - 16.0 03/08/2012 Normal [facility] HEMATOLOGY Hct 41.8 36.0 - 48.0 03/08/2012 Normal [facility] HEMATOLOGY MPV 12.5 7.4 - 10.4 03/08/2012 [facility] HEMATOLOGY Platelet 120 133 - 450 03/08/2012 LOW [facility] Pathology Reports No Data Provided for This Section Diagnostic Reports Report Value Date Source Abdomen RUQ US PROCEDURE INFOR MATION: Exam: US Abdomen, Limited; Right Upper Quadrant Exam date and time: 02/16/2020 8:02 AM Age: 64 years old Clinical indication: /cirrhosis/ascites TECHNIQUE: Imaging protocol: US abdomen. Real time ultrasound with image documentation. Limited exam focused on the right upper quadrant. COMPARISON: ABDOMEN RUQ US 04/29/2016 3:29 AM FINDINGS: Limited due to bowel gas. Liver: Small liver measuring 9.9 cm in length. Nodular hepatic contour. Difficult to assess for patency of main portal vein due to bowel gas. Gallbladder: Status post cholecystectomy. Common bile duct: No stones. No dilation. Pancreas: Visualized pancreas is unremarkable. Right kidney: Normal. No mass. No hydronephrosis. Measures 9.3 cm in length. IMPRESSION: 1. Limited due to bowel gas. Small cirrh otic liver. No ascites. 2. Status post cholecystectomy. Vincenzo Rosario MD On 02/16/2020 08:48:27; [id number] 02/16/2020 [facility] Chest 1 v for Placement DX PRO CEDURE INFORMATION: Exam: XR Chest, 1 View Exam date and time: 02/16/2020 4:45 AM Age: 64 years old Clinical indication: Device placement; Additional info: Line placement/chest 1 view for line placement TECHNIQUE: Imaging protocol: XR of the chest Views: 1 view. COMPARISON: CHEST 1VIEW DX 02/16/2020 12:21 AM IMPRESSION: 1. The distal end of a left IJ central l ine is seen in the expected region of the left innominate vein. No pneumothorax is visible. 2. No acute intrathoracic abnormalities are visualized. Eduin Castañeda MD On 02/16/2020 05:29:40; [id number] 02/16/2020 [facility] Retroperitoneal Complete US Re port was redictated. The original report template was corrupt with findings out of order. FINDINGS: KIDNEYS: The right kidney measures 8.5 x 4.7 x 4.6 cm. The left kidney measures 9.7 x 4.5 x 4.5 cm. The kidneys are normal in size, shape, contour, and position. The cortices are normal in thickness and the cortical medullary differentiation is maintained. There is no hydronephrosis, nephrolithiasis, or abnormal perinephric collections. BLADDER: The bladder is decompressed with a Bennett catheter in place. AORTA ILIACS AND INFERIOR VENA CAVA: Visualized portions appear unremarkable. ASCITES: No ascites noted. IMPRESSION: Unremarkable renal ultrasound. Jeison Copeland MD On 02/16/2020 16:56:42; [id number] PROCEDURE INFORMATION: Exam: US Retroperitoneal; Complete; Kidneys and Bladder Exam date and time: 02/16/2020 3:00 PM Age: 64 years old Clinical indication: /breana TECHNIQUE: Imaging protocol: Real-time ultrasound of the retroperitoneum with image documentation. Complete exam focused on the kidneys and bladder. COMPARISON: ABDOMEN RUQ US 02/16/2020 6:05 AM FINDINGS: Right kidney: The right kidney measures 8.5 x 4.7 x 4.6 cm. The kidneys are normal in size, shape, contour, and position. The cortices are normal in thickness and the cortical medullary differentiation is maintained. There is no hydronephrosis, nephrolithiasis, or abnormal perinephric collections. Left kidney: The left kidney measures 9.7 x 4.5 x 4.5 cm. Aorta: AORTA ILIACS AND INFERIOR VENA CAVA: Intraperitoneal space: ASCITES: No ascites noted. Bladder: Unremarkable. Other findings: KIDNEYS:; Decompressed with a Bennett catheter in place. Visualized portions appear unremarkable. IMPRESSION: Unremarkable renal ultrasound. Jeison Copeland MD On 02/16/2020 16:54:24; [id number] 02/16/2020 [facility] Brain wo contrast CT Radiation Dose CTDIVOL = 0 (mGy): DLP = 982.82 (mGy-cm) PROCEDURE INFORMATION: Exam: CT Head Without Contrast Exam date and time: 02/16/2020 12:59 AM Age: 64 years old Clinical indication: /ams/cirrohsis. PT from home w/complaints of, 'ams for unkn amt of days, ' PT has HX of chirrhosis, family reports that AMS has been getting worse all day, PT alert to self only @ this time TECHNIQUE: Imaging protocol: Computed tomography of the head without contrast. Radiation optimization: All CT scans at this facility use at least one of these dose optimization techniques: automated exposure control; mA and/or kV adjustment per patient size (includes targeted exams where dose is matched to clinical indication); or iterative reconstruction.Total DLP (mGy-cm): 982.82 COMPARISON: BRAIN WO CONTRAST CT 09/18/2016 2:23 PM FINDINGS: Brain: Age-related involutional changes. Moderate microvascular white matter disease. No acute infarct, intracranial hemorrhage or mass effect. Encephalomalacia in the bilateral parietal lobes. Ventricles: No ventriculomegaly. Bones/joints: . No acute fracture. Sinuses: Opacification of the visualized right maxillary sinus. Mastoid air cells: Partial opacification of right mastoid air cells. Soft tissues: Unremarkable. IMPRESSION: No acute infarct, intracranial hemorrhage or mass effect. Encephalomalacia in the bilateral parietal lobes. Meagan Romero MD On 02/16/2020 01:54:04; [id number] 02/16/2020 [facility] Chest 1view DX PROCEDURE INFOR MATION: Exam: XR Chest, 1 View Exam date and time: 02/16/2020 12:21 AM Age: 64 years old Clinical indication: /ams/cirrohsis TECHNIQUE: Imaging protocol: XR of the chest Views: 1 view. COMPARISON: CHEST 1VIEW DX 09/18/2016 2:42 PM FINDINGS: Lungs: Unremarkable. No consolidation. Pleural space: Unremarkable. No pleural effusion. No pneumothorax. Heart/Mediastinum: Unremarkable. No cardiomegaly. Bones/joints: No acute fracture. IMPRESSION: No acute findings. Jonas Rutledge MD On 02/16/2020 01:04:43; JOSEPHINE-[id number] 02/16/2020 [facility] Hip 2/3 views uni w pelvis DX Patient Name: DIANE SIMEON : 1955; Age: 62 years y/o Female MR: [id number] Study: 2 view left hip 11/22/2017 9:52 AM CDT Ordering Physician: Alexis Tim MD Clinical Indication: - M25.552 Pain in left hip; upper leg pain Comparison: None Discussion: Bony overgrowth of the lateral aspect of the acetabulum with some narrowing of the superolateral left hip joint. Subcentimeter dystrophic calcification in the lateral soft tissues of the proximal thigh. No other significant findings identified. IMPRESSION: Changes of osteoarthritis in the left hip. SL: HMUSPARE-PC 11/22/2017 [facility] Ext Lower Venous Doppler Bilat US Exam: Ext Lower Venous Doppler Bilat US Clinical Indication: - I82.401 Acute embolism and thrombosis of unspecified deep veins of right lower extremity. Comparison: None. TECHNIQUE: Sonographic evaluation of the bilateral lower extremity veins was performed using high resolution B-mode imaging, along with pulse and color Doppler imaging. FINDINGS: Right lower extremity: The common femoral vein, superficial femoral vein, popliteal vein and visualized posterior tibial/calf veins are patent. The veins are compressible with normal color flow and augmentation demonstrated on Doppler spectral analysis. There is no echogenic debris to suggest deep venous thrombosis. The saphenofemoral junction is unremarkable. Left lower extremity: The common femoral vein, superficial femoral vein, popliteal vein and visualized posterior tibial/calf veins are patent. The veins are compressible with normal color flow and augmentation demonstrated on Doppler spectral analysis. There is no echogenic debris to suggest deep venous thrombosis. The saphenofemoral junction is unremarkable. IMPRESSION: 1. No deep venous thrombosis of bilatera l lower extremities. REFERENCE: Deep veins include: common femoral vein, superficial femoral vein (also can be referred to as 'femoral vein'), popliteal vein, posterior tibial vein Superficial veins include: greater and lesser saphenous veins SL: [id number] 11/22/2017 [facility] Breast Mammo Scrn TYLER incl CAD MA BILATERAL DIGITAL SCREENING MAMMOGRAM WITH CAD: 11/17/2017 CLINICAL: /Routine. Current study was evaluated with a Computer Aided Detection (CAD) system. COMPARISON:Exam is read without the benefit of comparison films. We have not yet received films from the prior facility where the patient states her prior mammograms were performed. Interpretation has been delayed secondary to this. TECHNIQUE: Mammographic views were obtained using digital acquisition. [employer] Version 1.3 was utilized for computer aided detection. FINDINGS: There are scattered fibroglandular densities in both breasts. Benign appearing densities are noted in both breasts. No significant masses, calcifications, or other findings are seen in either breast. IMPRESSION: BENIGN RECOMMENDATION:There is no mammographic evidence of malignancy. A 1 year screening mammogram is recommended.(11/18/2018) SUMMARY: Prior mammograms would be of added benefit to document long term care administrator stability. This aids in establishing benignity. The patient should make additional efforts to locate her prior exams. An addendum will be made if additional films are provided. This exam was interpreted at [id number] for [facility]. Lemuel anguiano/perry:11/28/2017 08:04:21 Torch Cutter(s): Tessa Raymundo [facility] letter sent: BI-RADS 1/2 Mammogram BI-RADS: 2 Benign 11/17/2017 [facility] Abdomen complete US Patient Na me: DIANE DIGGS : 1955; Age: 61 years y/o Female MR: [id number] Study: Abdomen complete US 09/19/2016 3:00 PM [employer] Ordering Physician: Alexis Tim MD Clinical Indication: Abnormal Lab tests- LFT. Comparison: None TECHNIQUE: Grayscale and limited color sonographic evaluation of the abdomen was performed with standard technique. FINDINGS: LIVER: The liver is heterogeneous and coarse in echotexture and probable mild nodular contour reflecting hepatocellular disease possibly cirrhosis. This lowers the sensitivity for detection of hepatic lesion. BILE DUCTS: The intrahepatic duct is not dilated. The common bile duct measuring 5.0 mm. GALLBLADDER: Nonvisualization of the gallbladder likely post cholecystectomy. PANCREAS: The visualized pancreas appears unremarkable.. SPLEEN: The spleen is unremarkable and measures 13.8 cm x 7.2 cm x 6.9 cm. A 2.0 cm shadowing echogenic lesion likely prominent coarse calcification is present within the spleen. KIDNEY: The right kidney measures 9.6 cm x 5.0 cm x 6.6 cm. The left kidney measures 10.9 cm x 4.2 cm x 5.4 cm. There is normal renal contour and morphology, with normal parenchymal echotexture. There is no hydronephrosis. AORTA AND INFERIOR VENA CAVA: Visualized portions appear unremarkable. ASCITES: There is no right abdominal ascites. IMPRESSION: 1. Postoperative cholecystectomy. 2. Hepatocellular disease possibly cirrh osis. 3. Borderline splenomegaly. A 2.0 cm sha dowing echogenic lesion likely prominent coarse calcification is present within the spleen. SL: [id number] 09/19/2016 [facility] Chest 1view DX EXAM: Chest 1vi ew DX DATE: 09/18/2016 2:37 PM [employer] INDICATION: Chest pain COMPARISON: 04/28/2016. IMPRESSION: The patient is rotated. Stable prominent cardiac silhouette and mediastinum. Tortuous atherosclerotic thoracic aorta. No focal consolidation, significant pleural effusion or pneumothorax. SL: [id number] 09/18/2016 [facility] Brain wo contrast CT EXAM: CT BRAIN WITHOUT CONTRAST DATE: 09/18/2016 2:18 PM [employer] INDICATION: Altered level of consciousness ADDITIONAL INFORMATION AND CT DLP: CT DLP: 1521.23 mGy-cm. COMPARISON: CT head of 02/22/2011. TECHNIQUE: Routine axial CT images of the brain were obtained. IV contrast: None. FINDINGS: Motion artifact degrades image quality. Non-contrast images of the head demonstrate no edema, hemorrhage, mass lesion or other acute intracranial abnormality. Preston-white matter distinction is preserved. The ventricles are normal. The basal cisterns and sulci are normal in size. Mild chronic inflammatory change of the paranasal sinus. Partial opacification of the mastoid air cells. IMPRESSION: 1. Moderately limited study as above. No definite acute infarct or intracranial hemorrhage detected. If there is further concern for intracranial pathology or acute stroke, MRI of the brain may be performed for complete assessment. SL: [id number]-PC 09/18/2016 [facility] Abdomen RUQ US PROCEDURE: RIGH T UPPER QUADRANT ULTRASOUND INDICATION: Abdominal pain, acute COMPARISON: None TECHNIQUE: Sonographic evaluation of the right upper quadrant was performed with supplemental color and pulsed Doppler. COMMENTS: LIVER: The liver is normal in contour and morphology with normal parenchymal echogenicity. GALLBLADDER: The gallbladder is been removed. BILE DUCTS: The common duct measures 6.8 mm. PANCREAS: Pancreas not visualized. RIGHT KIDNEY: The right kidney measures 10.8 cm in length. Normal renal contour and morphology with normal echogenicity. There is no hydronephrosis. Additional comments: None. IMPRESSION: 1. Prior cholecystectomy. Pancreas not visualized. SL: [id number] 04/29/2016 [facility] Chest 1view DX EXAM: XR CHEST 1 VIEW DATE: 04/28/2016 9:29 PM CDT INDICATION: Chest pain COMPARISON: Chest radiograph dated 02/22/2011. TECHNIQUE: A single AP view of the chest was obtained. FINDINGS: The lungs are well inflated. No focal consolidation or pneumothorax is identified. There is enlargement of the cardiac silhouette, with tortuosity of the aortic contour. The costophrenic recesses are sharp. The visualized osseous structures are within normal limits. IMPRESSION: No acute cardiopulmonary abnormality. SL: [id number] 04/28/2016 [facility] Consultation Notes No Data Provided for This Section Discharge Summaries No Data Provided for This Section History and Physicals No Data Provided for This Section Vital Signs Vital Sign Value Date Comments Source Respitory Rate 13 02/26/2020 [facility] Systolic (mm Hg) 112 02/26/2020 [facility] Diastolic (mm Hg) 53 02/26/2020 [facility] Respitory Rate 12 02/26/2020 [facility] Systolic (mm Hg) 114 02/26/2020 [facility] Diastolic (mm Hg) 61 02/26/2020 [facility] Respitory Rate 11 02/26/2020 [facility] Systolic (mm Hg) 107 02/26/2020 [facility] Diastolic (mm Hg) 70 02/26/2020 [facility] Temperature Oral (F) 98.1 F 02/26/2020 [facility] Temperature Oral (F) 97.8 F 02/26/2020 [facility] Temperature Oral (F) 98.8 F 02/23/2020 [facility] Heart Rate 65 02/18/2020 [facility] Heart Rate 66 02/18/2020 [facility] Heart Rate 68 02/18/2020 [facility] Height 152.4 cm 02/16/2020 [facility] BMI Calculated 25.44 02/16/2020 [facility] Weight 59.091 02/16/2020 [facility] Systolic (mm Hg) 127 10/19/2016 [facility] Diastolic (mm Hg) 82 10/19/2016 [facility] Respitory Rate 13 10/19/2016 [facility] Respitory Rate 17 10/19/2016 [facility] Systolic (mm Hg) 127 10/19/2016 [facility] Diastolic (mm Hg) 66 10/19/2016 [facility] Respitory Rate 16 10/19/2016 [facility] Systolic (mm Hg) 110 10/19/2016 [facility] Diastolic (mm Hg) 67 10/19/2016 [facility] Heart Rate 84 10/19/2016 [facility] Temperature Oral (F) 98.0 F 10/18/2016 [facility] Heart Rate 71 10/18/2016 [facility] BMI Calculated 35.33 10/18/2016 [facility] Weight 79.347 10/18/2016 [facility] Height 149.86 cm 10/18/2016 [facility] Systolic (mm Hg) 124 09/21/2016 [facility] Diastolic (mm Hg) 78 09/21/2016 [facility] Temperature Oral (F) 97.9 F 09/21/2016 [facility] Respitory Rate 14 09/21/2016 [facility] Heart Rate 77 09/21/2016 [facility] Systolic (mm Hg) 124 09/21/2016 [facility] Diastolic (mm Hg) 72 09/21/2016 [facility] Respitory Rate 5 09/21/2016 [facility] Systolic (mm Hg) 128 09/21/2016 [facility] Diastolic (mm Hg) 76 09/21/2016 [facility] Respitory Rate 16 09/21/2016 [facility] Heart Rate 79 09/21/2016 [facility] Heart Rate 74 09/21/2016 [facility] Temperature Oral (F) 98.3 F 09/21/2016 [facility] Temperature Oral (F) 98.1 F 09/21/2016 [facility] Weight 81.818 09/18/2016 [facility] BMI Calculated 36.43 09/18/2016 [facility] Height 149.86 cm 09/18/2016 [facility] Systolic (mm Hg) 128 04/29/2016 [facility] Diastolic (mm Hg) 60 04/29/2016 [facility] Respitory Rate 18 04/29/2016 [facility] Temperature Oral (F) 98.2 F 04/29/2016 [facility] Systolic (mm Hg) 125 04/29/2016 [facility] Diastolic (mm Hg) 65 04/29/2016 [facility] Temperature Oral (F) 98.3 F 04/29/2016 [facility] Respitory Rate 18 04/29/2016 [facility] Temperature Oral (F) 98.2 F 04/29/2016 [facility] Respitory Rate 20 04/29/2016 [facility] Systolic (mm Hg) 115 04/29/2016 [facility] Diastolic (mm Hg) 51 04/29/2016 [facility] Heart Rate 92 04/29/2016 [facility] Weight 81.818 04/29/2016 [facility] BMI Calculated 36.43 04/29/2016 [facility] Height 149.86 cm 04/29/2016 [facility] Respitory Rate 14 03/23/2012 [facility] Diastolic (mm Hg) 66 03/23/2012 [facility] Systolic (mm Hg) 112 03/23/2012 [facility] Respitory Rate 17 03/23/2012 [facility] Diastolic (mm Hg) 57 03/23/2012 [facility] Respitory Rate 15 03/23/2012 [facility] Systolic (mm Hg) 112 03/23/2012 [facility] Systolic (mm Hg) 112 03/23/2012 [facility] Diastolic (mm Hg) 62 03/23/2012 [facility] Temperature Oral (F) 97.1 F 03/23/2012 [facility] Temperature Oral (F) 97.1 F 03/23/2012 [facility] Temperature Oral (F) 97.1 F 03/23/2012 [facility] Heart Rate 100 03/22/2012 [facility] Height 149.86 cm 03/22/2012 [facility] Weight 90.909 03/22/2012 [facility] Height 149.86 cm 03/08/2012 [facility] Weight 90.909 03/08/2012 [facility] Encounters Location Location Details Encounter Type Encounter Number Reason For Visit Attending Provider ADM Date DC Date Status Source [facility] Inpatient [id number] [place] 03/22/2012 03/23/2012 Discharged [facility] Emergency [id number] Veda Grubbsqi 04/29/2016 04/29/2016 [facility] Inpatient [id number] Alexis Tim 09/18/2016 09/21/2016 [facility] Bedded Outpatient [id number] Perico Duenas 10/19/2016 10/19/2016 [facility] Outpatient [id number] Alexis Tim 11/17/2017 11/18/2017 [facility] Inpatient [id number] Felix Rock 02/16/2020 02/27/2020 [facility] Procedures Procedure Code Date Perfomer Comments Source Biopsy of liver [id number] [facility] section [id number] [facility] Esophagogastroduodenoscopy [id number] [facility] Removal of gallstones from liver [id number] [facility] Assessment and Plan Assessment and Plan Date Source Extracted from:Title: Clinical Document Author: Andrés Hicks MD Date: 02/26/20 Progress Note Nephrology SUBJECTIVE feels better ASSESSMENT ARF, resolved Shock, improved Hypoalbuminemia metabolic acidosis , better MAYO Cirrhosis Hypophosphatemia, phos given hypomagnesemia replaced hypernatremia better PLAN and TREATMENT ok to go home doing better Physical Exam alert, oriented HEENT : peerla NECK: no jvd, no bruits, HEART : RRR no s3 no S4, no murmur, no rub LUNGS: no wheezes no rales, no rhonci ABDOMEN: NTND no organomegaly no hepatomegaly positive bowel sounds EXT: no clubbing no cyanosis no edema NEURO :no focalities, no sensory deficits, no motor deficits SKIN: no rash, no bruises R.O.S General no change in weight no change in appetite ENT no wheezing no congestion no coughing Vision no changes in vision no eye redness Pulmonary no shortness of breath no coughing no wheezing Cardiac no chest pain no arrhythmia no orthopnea no dyspnea upon exertion GI no nausea no vomiting no constipation no diarrhea no blood in the stool no dysuria no hematuria Neurological no sensory loss no motor loss no weakness Skin no rash no bruises Psych no depression and schizoaffective disorder no anxiety OBJECTIVE Vitals Tmp(F) Tmp(C) Ttype BP MAP Pulse RR SpO2 FIO2 ETCO2 02/25 17:00 ---- ---- ---- 1 71 61 13 --- --- --- 02/25 16:00 ---- ---- ---- 1 75 58 12 --- --- --- 02/25 15:00 ---- ---- ---- 1 83 55 11 --- --- --- 02/25 14:00 ---- ---- ---- 1 69 60 12 --- --- --- 02/25 13:00 ---- ---- ---- 1 81 61 12 --- --- --- 24 Hr Tmax: 98.1F (36.72c) at 02/25 04:0 0 Vital Signs are the last 5 in the past 48 hours. 24 Hr Tmin: 97.8F (36.56c) at 02/25 07: 00 Weights are the last 5 in 60 days, plus initial. Date Wt(kg) Wt(lb) Ht(cm) Ht(in) Method BMI BSA 02/25 87.00 191.40 Measur ed 02/24 87.00 191.41 Measur ed 02/14 (initial) 59.09 130.00 Measured 25.4 1.58 02/14 152.40 60.00 Stated 24 Hr Point of Care Glucoses 02/25 1741 Glucose POC 87 02/25 1154 Glucose POC 108 H 02/25 0553 Glucose POC 111 H 02/24 2051 Glucose POC 104 H Most Recent Scores: 02/26/20 Santiago Coma Score 15 02/26/20 Rangel Wilcox Fall Score 13 02/26/20 Juan Score 19 02/23/20 Pain Intensity NRS (0-10) 0 (all previously charted lines have been discontinued) (no surgical procedures documented) Input/Output Record In Out Bal 02/25 24hr Tot 460 0 460 02/24 24hr Tot 1210 0 1210 Scheduled Meds (7):(Suspended) clopidogrel (Plavix), folic acid, lactulose (lactulose 10 g/15 mL oral syrup), levETIRAcetam, midodrine, riFAXimin, thiamine Unscheduled Meds: None PRN Meds (20):Dextrose 50% in Water IV (Dextrose 50% Syringe (D50W)), Dextrose 50% in Water IV (Dextrose 50% Syringe (D50W)), acetaminophen, calcium gluconate + Sodium Chloride 0.9% IV 100 mL, calcium gluconate + Sodium Chloride 0.9% IV 100 mL, glucagon, magnesium oxide, magnesium sulfate, magnesium sulfate, ondansetron, potassium chloride, potassium chloride, potassium chloride, potassium phosphate + Sodium Chloride 0.9% IV 250 mL, potassium phosphate + Sodium Chloride 0.9% IV 250 mL, potassium phosphate-sodium phosphate (potassium phosphate-sodium phosphate 250 mg-280 mg-160 mg oral powder for reconstitution), sodium chloride (Saline Flush 0.9%), sodium chloride (Saline Flush 0.9%), sodium glycerophosphate + Dextrose 5% in Water IV 250 mL, sodium phosphate + Dextrose 5% in Water IV 250 mL One Time Meds: None Continuous Infusions: None Labs (Last four charted values) WBC 4.4 (FEB 24) 4.0 (FEB 23) 4.1 (FEB 22) 6.3 (FEB 20) Hgb L 8.1 (FEB 24) L 7.7 (FEB 23) L 7.8 (FEB 22) L 7.6 (FEB 20) Hct L 24.3 (FEB 24) L 23.0 (FEB 23) L 22.9 (FEB 22) L 22.4 (FEB 20) Plt L 61 (FEB 24) L 62 (FEB 23) L 59 (FEB 22) L 76 (FEB 20) Na 145 (FEB 25) H 147 (FEB 24) H 148 (FEB 24) H 147 (FEB 23) K 4.0 (FEB 25) 4.3 (FEB 24) 4.1 (FEB 24) 4.0 (FEB 23) CO2 L 21 (FEB 25) 24 (FEB 24) L 22 (FEB 24) L 20 (FEB 23) Cl H 119 (FEB 25) H 119 (FEB 24) H 123 (FEB 24) H 121 (FEB 23) Cr 0.81 (FEB 25) 0.84 (FEB 24) 0.81 (FEB 24) 0.95 (FEB 23) BUN 10 (FEB 25) 12 (FEB 24) 13 (FEB 24) 19 (FEB 23) Glucose Random H 126 (FEB 25) H 144 (FEB 24) 94 (FEB 24) H 101 (FEB 23) Mg 1.9 (FEB 25) L 1.6 (FEB 25) L 1.6 (FEB 24) L 1.5 (FEB 24) Phos 2.5 (FEB 25) L 2.4 (FEB 25) C 1.5 (FEB 24) C 1.1 (FEB 24) Ca L 8.0 (FEB 25) L 8.0 (FEB 24) L 8.0 (FEB 24) L 8.2 (FEB 23) PT H 25.2 (FEB 18) H 25.1 (FEB 17) H 20.5 (FEB 15) INR H 2.24 (FEB 18) H 2.23 (FEB 17) H 1.73 (FEB 15) PTT H 46.4 (FEB 18) 34.5 (FEB 15) Troponin <0.02 (FEB 15) Total CK 59 (FEB 15) Extracted from:Title: Clinical Document Author: Felix Rock MD Date: 02/26/20 Discharge Summary Discharge Date: 02/26/2020 Copies to: PCP , GI Dr Marc Villalobos , Nephrology Dr Andrew , [place] Diagnoses: *Septic shock due to bacillus bacteremia *Bacillus bacteremia, source unclear *Acute GI bleed * low phosphorus and magnesium *Acute hepatic encephalopathy *Nonalcoholic steatotic hepatitis and cirrhosis *Thrombocytopenia *Acute kidney injury *Altered mental status *Intracranial aneurysm Procedures: none Chief Complaint: see H and P done HPI: see H and P done Hospital course: Pt presented with weaknes / AMS - he was found to be having hypotnesion. s/p inotropes under ICU care. started on emeperic antibiotics. Pt was given Lactulose for hepatic encephalopathy. She did well. Improved condition. She was seen by neprhology, ICU , ID and GI> overall condition improved and discharged on home health, shock due to bacillus bacteremia *Bacillus bacteremia, source unclear *Acute GI bleed * low phosphorus and magnesium *Acute hepatic encephalopathy *Nonalcoholic steatotic hepatitis and cirrhosis *Thrombocytopenia *Acute kidney injury *Altered mental status *Intracranial aneurysm Patient seen examined 02/20/2020. Patient with bacillus bacteremia, cirrhosis due to fatty liver, and acute GI bleed. Remains in septic shock at this time due to bacteremia, cirrhosis hypotension Currently on norepinephrine in the ICU. Continue with Rocephin and metronidazole for bacillus species in the blood. Renal failure and cirrhosis that is decompensated. Prognosis is guarded. Continue with supportive care. --Midodrine for hypotension Keep in ICU as patient is critically ill. Patient seen examined 02/21/2020. Patient with bacillus bacteremia, cirrhosis secondary to fatty liver, acute GI bleed. In septic shock. On vasopressors in the ICU. Continue Rocephin and Flagyl. Patient remains critically ill in the ICU. Elevated ammonia seen, continue with scheduled lactulose. Rifaximin per GI. Patient seen examined 02/22/2020. Patient with bacillus bacteremia, cirrhosis secondary to fatty liver, acute GI bleed. Patient remains in septic shock continue with vasopressor support in the ICU. Continue Rocephin and Flagyl. Patient remains critically ill in the ICU. Patient seen and examined 02/23/2020. Patient with bacillus bacteremia, cirrhosis, fatty liver and septic shock. Thankfully is off vasopressors this morning in the ICU. Continue with Rocephin and Flagyl. Remains critically ill in the ICU. May be able to be downgrade soon. Severe hypophosphatemia noted today, will replace now. 02/24/2020 low BP - will continue Midodrine Off inotropes now her mental status is good and back to baseline noted blood c/s - consult ID in AM continue with IV antibiotics PT / OT continue with lactulose / xifxan 02/25/2020 noted low mag and phosphorus - we will replace these electrolytes continue midodrine continue IV antibiotics PT / OT supportive care can transfer to floor if ok with critical care MD d./w RN 02/26/2020 doing well. will replace Mag and Phosp blood c/s contaminant will dc once cleared byy other specialists and labs improved d/w RN - will dc on home health Discharge condition: stable , gaurded prognosis Recent signficant physical findings: see chart Recent significant lab and radiology results: Discharge therapy: Medications: see OCT Diet : heart healthy Activity: as tolerated Follow up PCP / GI Labs (Last four charted values) WBC 4.4 (FEB 24) 4.0 (FEB 23) 4.1 (FEB 22) 6.3 (FEB 20) Hgb L 8.1 (FEB 24) L 7.7 (FEB 23) L 7.8 (FEB 22) L 7.6 (FEB 20) Hct L 24.3 (FEB 24) L 23.0 (FEB 23) L 22.9 (FEB 22) L 22.4 (FEB 20) Plt L 61 (FEB 24) L 62 (FEB 23) L 59 (FEB 22) L 76 (FEB 20) Na 145 (FEB 25) H 147 (FEB 24) H 148 (FEB 24) H 147 (FEB 23) K 4.0 (FEB 25) 4.3 (FEB 24) 4.1 (FEB 24) 4.0 (FEB 23) CO2 L 21 (FEB 25) 24 (FEB 24) L 22 (FEB 24) L 20 (FEB 23) Cl H 119 (FEB 25) H 119 (FEB 24) H 123 (FEB 24) H 121 (FEB 23) Cr 0.81 (FEB 25) 0.84 (FEB 24) 0.81 (FEB 24) 0.95 (FEB 23) BUN 10 (FEB 25) 12 (FEB 14) 13 (FEB 24) 19 (FEB 23) Glucose Random H 126 (FEB 15) H 144 (FEB 14) 94 (FEB 24) H 101 (FEB 23) Mg L 1.6 (FEB 25) L 1.6 (FEB 24) L 1.5 (FEB 24) 1.8 (FEB 23) Phos L 2.4 (FEB 25) C 1.5 (FEB 24) C 1.1 (FEB 24) L 1.7 (FEB 23) Ca L 8.0 (FEB 25) L 8.0 (FEB 24) L 8.0 (FEB 24) L 8.2 (FEB 23) PT H 25.2 (FEB 18) H 25.1 (FEB 17) H 20.5 (FEB 15) INR H 2.24 (FEB 18) H 2.23 (FEB 17) H 1.73 (FEB 15) PTT H 46.4 (FEB 18) 34.5 (FEB 15) Troponin <0.02 (FEB 15) Total CK 59 (FEB 15) I have spent 35 min for dc Extracted from:Title: History and Physical Author: Geetha Cannon MD Date: 02/16/20 64 yo F with history ofintracranial aneu rysms, status post pipeline flow diversion device placement, cirrhosis due to MAYO?, who presented to the ED with AMS. Acute hepatic encephalopathy - receiving lactulose enema, will monito r for improvement -will consult GI - will hold off PO lactulose until more alert BREANA - concerning for HRS or hypovolemia - will start IVF and consult nephrology - urine lytes ordered MAYO cirrhosis Thrombocytopenia and coagulopathy - due to above Hx intracranial aneurysm heparin anticipate 2-3 midnights Addendum by Geetha Cannon MD on 02/16/2020 03:36 CDT Soon after admission pt had abrupt drop in BP to 70s-80s/60s. Discussed with ER physician, based on this will consult therapeutic case manager, planned for central line and initiation of pressors. 02/27/2020 GONZALEZ Aden Extracted from:Title: Hem/Onc Note * Author: Hallie Aviles MD Date: 09/21/16 Impression and Plan Ms. Diggs is a very pleasant 61-year-old female with complicated past medical history including known history of brain aneurysm status post coiling and now admitted due to altered mental status. She has undergone a neurological workup. Her laboratory workup revealed thrombocytopenia and anemia. Ultrasound of small straight to possible liver cirrhosis and splenomegaly. I had a lengthy discussion with the patient and her granddaughter about her current disease status and importance of further workup. It appeared that she does not recall history of any liver disease or hepatitis. Likely etiology is underlying liver disease. GI wokrup in progress. ASSESSMENT: 1. Thrombocytopenia, new onset thromboc ytopenia likely due to underlying chronic liver disease and splenomegaly. Trending down. Will monitor for now. 2. Anemia, multifactorial. 3. Liver cirrhosis. I will continue to be available. Please call with any questions. 09/21/2016 GONZALEZ Aden Plan of Care No Data Provided for This Section Social History Social History Date Source Social History TypeResponse Alcohol Never, Previous treatment: None. Substance Abuse Use: None. Smoking Status Former smoker; Type: Cigarettes; Exposure to Tobacco Smoke None; Cigarette Smoking Last 365 Days No; Reg Smoking Cessation Counseling No entered on: 02/18/20 10/18/2016 GONZALEZ Aden Family History No Data Provided for This Section Advance Directives No Data Provided for This Section Functional Status No Data Provided for This Section
--- OUTSIDE RECORDS SUMMARY | 2020-03-15 08:02 | XMS REPORT | Continuity of Care Document ---
Author Author [facility] t Organization [facility] Address [address] [place] [address] Phone Unavailable Care Team Providers Care Radiation Monitor Name Role Phone MD Fantasma CHAN [facility] PCP Gail JAQUEZICA Attphys Unavailable Fantasma Rock Attphys Praful Tim Attphys Perico Duenas Attphys Champ Cid Attphys Fantasma [place] Admphys Perico Duenas Admphys Praful Tim Admphys Payers Payer Name Policy Type Policy Number Effective Date Expiration Date [facility] [employer] [place] [employer] [id number] 2018 00:00:00 [facility] Problems Condition Name Condition Details Condition Category Status Onset Date Resolution Date Last Treatment Date Treating Clinician Comments Source [facility] AMS Active 02/15/2020 [facility] Active 2020-02-15 00:00:00 2020-02-15 23:48:00 M kike Almonte ALTERED MENTAL STATUS, ACUTE HEPATIC ENC ALTERED MENTAL STATUS, ACUTE HEPATIC ENC Active 02/15/2020 [facility] Ac tive 2020-02-15 00:00:00 2020-03-02 21:48:00 M kike Almonte ROUTINE SCREENING LAST MMG W/MH ROUTINE SCREENING LAST MMG W/MH Active 11/16/2017 [facility] tive 2017-11-16 00:00:00 2017-11-17 12:43:00 M kike Almonte DX: I82.401=ACUTE EMBOLISM AND THROMBOSI DX: I82.401=ACUTE EMBOLISM AND THROMBOSI Active 11/16/2017 [facility] Active 2017-11-16 00:00:00 2020-02-17 22:42:00 Chi Almonte Z12.11 Z12. 11 Active 10/11/2016 [facility] Active 2016-10-11 00:00:00 2016-10-19 07:49:00 Chi Almonte UNK UNK Active 10/11/2016 [facility] Active 2016-10-11 00:00:00 2016-10-12 09:52:00 M kike Almonte ALTERED MENTAL STATUS ALTE RED MENTAL STATUS Active 09/18/2016 [facility] Active 2016-09-18 00:00:00 2016-09-21 13:30: 00 Chi Almonte RAPID HEARTRATE RAPI D HEARTRATE Active 04/28/2016 [facility] Active 2016-04-28 00:00:00 2016-04-29 00:00:00 Chi Almonte LARGE LEFT CAVERNOUS ANEURYSM LARGE LEFT CAVERNOUS ANEURYSM Active 09/16/2011 [facility] Diagnosis Active 2011-09-16 00:00:00 2012-03-22 14:06:00 Chi Almonte Problem Condition Active [facility] Anxiety (finding) Anxi ety (finding) Active Problem 02/28/2020 [facility] Active 2020-02-28 22:38:20 Chi Almonte Cerebrovascular accident (disorder) Cerebrovascular accident (disorder) Active Problem 02/28/2020 [facility] Active 2020-02-28 22:38:20 Cih Almonte Cirrhosis of liver (disorder) Cirrhosis of liver (disorder) Active Problem 02/28/2020 [facility] Active 2020-02-28 22:38:20 Chi Almonte History of cholecystectomy (situation) History of cholecystectomy (situation) Active Problem 02/28/2020 [facility] Problem Active 2020-02-28 22:38:20 Chi Almonte Hypertensive disorder, systemic arterial (disorder) Hypertensive disorder, systemic arterial (disorder) Active Problem 02/28/2020 [facility] Problem Active 2020-02-28 22:38:20 Chi Almonte Seizure (finding) Seiz ure (finding) Active Problem 02/28/2020 [facility] Problem Active 2020-02-28 22:38:20 Chi Almonte History of cholecystectomy His tory of cholecystectomy Active Problem 03/25/2012 [facility] Problem Active 2012-03-25 08:12:43 Chi Almonte HTN - Hypertension HTN - Hypertension Active Problem 03/25/2012 [facility] Problem Active 2012-03-25 08 :12:43 Chi Almonte 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 [facility] Diagnosis Active 2012-03-22 14:06:00 Chi Almonte ALTERED MENTAL STATUS, UNSPECIFIED ALTERED MENTAL STATUS, UNSPECIFIED Active [facility] Diagnosis Active 2020-03-02 21:48:00 [facility] ACUTE AND SUBACUTE HEPATIC FAILURE WITHO ACUTE AND SUBACUTE HEPATIC FAILURE WITHO Active [facility] Diagnosis Active 2020-03-02 21:48:00 Chi Almonte Encounter for screening mammogram for malignant neopla sm of breast Encounter for screening mammogram for malignant neoplasm of breast 11/29/2017 02/23/2018 [facility] Problem 2017-11-29 03:23:41 2017 13:55:01 2018-02-23 13:55:01 [facility] Discharge Diagnosis: Palpitations Discharge Diagnosis: Palpitations 04/29/2016 05/02/2016 [facility] Problem 2 05:00:00 2016-05-02 03:23:32 2016-05-02 03:23:32 Chi Almonte Allergies, Adverse Reactions, Alerts Allergy Name Allergy Type Status Severity Reaction(s) Onset Date Inacti ve Date Treating Clinician Comments Source No Known Allergies DA Active U 2019-08-15 00:00:00 [facility] No Known Allergies DA Active U 2019-07-19 00:00:00 [facility] No Known Drug Intolerances DA Active U 2010-10-13 00:00:0 0 [facility] No Known Medication Allergies No Known Medication Allergies Active Chi Almonte Social History Social Habit Start Date Stop Date Quantity Comments Source Social History 2016-10-18 20:37:01 2016-10-18 20:37:01 Chi Almonte Sex Assigned At 1955 00:00:00 1955 00:00:00 Female [facility] Medications Ordered Medication Name Filled Medication Name Start Date Stop Da te Current Medication? Ordering Clinician Indication Dosage Frequency Signature (SIG) Comments Components Source Levetiracetam 2020-02-27 02:00:00 No Notes: (Same as:Ismael) [facility] pantoprazole 40 MG Enteric Coated Tablet [Protonix] 02-25 23:15:00 Yes 40 mg = 1 tab, P O, Daily, # 30 tab, 0 Refill(s), Pharmacy: [facility] #[id number], 152.4, cm, 02/15/20 22:51:00 CDT, Height, 59.091, kg, 02/15/20 22:51:00 CDT, Weight [facility] thiamine 100 mg oral tablet 2020-02-26 23:03:00 Yes 100 mg = 1 tab, PO, Daily, X 30 day, # 30 tab, 0 Refill(s), Pharmacy: [facility] #[id number], 152.4, cm, 02/15/20 22:51:00 CDT, Height, 59.091, kg, 02/15/20 22:51:00 CDT, Weight [facility] midodrine 5 mg oral tablet 2020-02-26 23:03:00 Yes 10 mg = 2 tab, PO, TID, # 180 tab, 0 Refill(s), Pharmacy: [facility] #[id number], 152.4, cm, 02/15/20 22:51:00 CDT, Height, 59.091, kg, 02/15/20 22:51:00 CDT, Weight [facility] Potassium Chloride 2020-02-26 13:55:00 No Notes: (Same as: K-Dur ) "Do Not Crush" Give with food and full glass of water For patients unable to swallow tablet, dissolve in one half glass of water. Allow about 2 minutes for the tablets to disintegrate. Stir before giving to prepare slurry and administer. Please exclude Patient s with feeding tube less than 14 Spanish (Dobhoff, J-tube etc) and pediatric and patients. [facility] potassium phosphate-sodium phosphate 250 mg-280 mg-160 mg oral powder for reconstitution 2020-02-26 13:55:00 No Notes: (Same as: Phos-NaK) Each 1.5 gm pkt has 250mg phosphorous. Mix w/2.5oz water and stir. [facility] potassium phosphate 2020-02-26 13:55:00 No Notes: (Same as: K Phosphate.) Do not infuse phosphorous concurrently in the same line as TPN or IVF that contains calcium. For double lumen central lines, phosphorous may be infused in a separate lumen from TPN. 1 mMol phoshate has 1.47 mEq potassium Infuse over 4 hours [facility] sodium phosphate 2020-02-26 13:55:00 No Notes: Infuse over 4 hour. Do not infuse phosphorous concurrently in the same line as TPN or IVF that contains calcium. For double lumen central lines, phosphorous may be infused in a separate lumen from TPN. [facility] Magnesium Sulfate 2020-02-26 13:55:00 No Notes: WASTE: F/P - Sink; E - Municipal Trash [facility] Magnesium Oxide 2020-02-26 13:55:00 No Notes: (Same as: Mag-Ox 400) Magnesium oxide [id number] elemental magnesium Dose=____mg magnesium oxide (___mg elemental magnesium) [facility] Calcium Gluconate 2020-02-26 13:55:00 No Notes: WASTE: F/P - Sink; E - Municipal Trash [facility] Potassium Chloride 2020-02-25 13:49:00 No Notes: (Same as: KCL) Infuse no faster than 10 mEq/hr if given peripherally. [facility] sodium phosphate 2020-02-25 13:49:00 No Notes: Infuse over 4 hour. Do not infuse phosphorous concurrently in the same line as TPN or IVF that contains calcium. For double lumen central lines, phosphorous may be infused in a separate lumen from TPN. [facility] potassium phosphate 2020-02-25 13:49:00 No Notes: (Same as: K Phosphate.) Do not infuse phosphorous concurrently in the same line as TPN or IVF that contains calcium. For double lumen central lines, phosphorous may be infused in a separate lumen from TPN. 1 mMol phoshate has 1.47 mEq potassium Infuse over 4 hours [facility] potassium phosphate-sodium phosphate 250 mg-280 mg-160 mg oral powder for reconstitution 2020-02-25 13:49:00 No Notes: (Same as: Phos-NaK) Each 1.5 gm pkt has 250mg phosphorous. Mix w/2.5oz water and stir. [facility] Magnesium Sulfate 2020-02-25 13:49:00 No Notes: WASTE: F/P - Sink; E - Municipal Trash Bin [facility] Magnesium Oxide 2020-02-25 13:49:00 No Notes: (Same as: Mag-Ox 400) Magnesium oxide [id number] elemental magnesium Dose=____mg magnesium oxide (___mg elemental magnesium) [facility] Calcium Gluconate 2020-02-25 13:49:00 No Notes: Contains: calcium gluconate 20mg/mL NaCl 0.67% 50mL WASTE: F/P - Sink; E - Municipal Trash Bin [facility] Calcium Carbonate 500 MG Chewable Tablet 2020-02-25 13:49:00 No Notes: (Same As: Tums) Calcium Carbonate 500 mg = 200 mg elemental calcium Dose = mg calcium carbonate ( mg elemental calcium) [facility] D5W 500 mL 2020-02-25 11:13:00 No 500 mL, Rate: 100 ml/hr, Infuse over: 5 hr, Route: IV, Dosing Weight 59.091 kg, Total Volume: 500, Start date: 02/25/20 6:13:00 CDT, Duration: 30 day, Stop date: 03/26/20 6:12:00 CDT, 1.6, m2, 0 [facility] potassium phosphate 2020-02-25 11:11:00 No Notes: (Same as: K Phosphate.) Do not infuse phosphorous concurrently in the same line as TPN or IVF that contains calcium. For double lumen central lines, phosphorous may be infused in a separate lumen from TPN. 1 mMol phoshate has 1.47 mEq potassium Infuse over 4 hours [facility] Magnesium Sulfate 2020-02-25 11:11:00 No Notes: WASTE: F/P - Sink; E - Municipal Trash Bin [facility] potassium phosphate 2020-02-23 17:29:00 No Notes: (Same as: K Phosphate.) Do not infuse phosphorous concurrently in the same line as TPN or IVF that contains calcium. For double lumen central lines, phosphorous may be infused in a separate lumen from TPN. 1 mMol phoshate has 1.47 mEq potassium Infuse over 4 hours [facility] Lactulose 667 MG/ML Oral Solution 2020-02-21 18:00:00 No Notes: (Same as:Chronulac) [facility] Lactulose 667 MG/ML Oral Solution 2020-02-21 14:00:00 No Notes: (Same as:Chronulac) [facility] Metronidazole 2020-02-20 19:00:00 No Notes: (Same as: Flagyl) Avoid alcohol. Chi Almonte Sodium Chloride 0.9% IV 250 mL + octreotide 1,250 microgram 2020-02-19 12:00:00 No 250 mL, Ra te: 10 ml/hr, Infuse over: 25 hr, Route: IV, Dosing Weight 59.091 kg, Total Volume: 250, Start date: 02/19/20 7:00:00 CDT, Duration: 30 day, Stop date: 03/20/20 6:59:00 CDT, 1.6, m2 [facility] octreotide 1,250 microgram + Sodium Chloride 0.9% IV 248.75 mL 2020-02-19 11:50:00 No 248.75 mL, Rate: 10 ml/hr, Infuse over: 25 hr, Route: IV, Dosing Weight 59.091 kg, Total Volume: 250, Start date: 02/19/20 6:50:00 CDT, Duration: 30 day, Stop date: 03/20/20 6:49:00 CDT, 1.6, m2, 0 [facility] pantoprazole additive 80 mg + Sodium Chloride 0.9% IV 100 mL 2020-02-19 11:49:00 No Notes: For IV push reconstitute with 10 ml 0.9% sodium chloride and push over 2 minutes. (Same as: Protonix) [facility] Thiamine 2020-02-18 18:19:00 No Notes: (Mitchell e As: Vitamin B1) [facility] Vitamin K 1 2020-02-18 18:18:00 No Notes: Same as: Vitamin K, Mephyton Combine FILTERED phytonadione injection (total 50 mg/5 mL)with Simple Syrup (45mL) in selvin bottle. Shake well prior to dispensing. Expiration: 90 days at [facility] Chi Almonte Plavix 2020-02-18 14:00:00 No Notes: (Same As: Plavix) [facility] Folic Acid 2020-02-18 14:00:00 No Notes: (S laura as: Folvite) [facility] Vasopressin (CUSTODIAL) 2020-02-17 23:56:00 No Notes: (Same As: Pitressin, Vasostrict) [facility] albumin human 25% intravenous solution 2020-02-17 23:00:00 No Notes: Lot #: Mfg: (Same as: Plasbumin-25) "blood product derivative" WASTE: F/P - Red; E -Red MEDICATION WASTE Product Size: 25 gm Product Wasted: ___ gm Me moriwa [facility] Lactulose 667 MG/ML Oral Solution 2020-02-17 22:00:00 No Notes: (Same as:Chronulac) [facility] Rocephin + sterile water 10 mL 2020-02-17 08:00:00 No Notes: (Same As: Rocephin). Use with 100 mL NS and infuse over 30 min MEDICATION WASTE Product Size: 1000 mg Product Wasted: ___ mg Chi [facility] Lactulose 667 MG/ML Oral Solution 2020-02-17 05:00:00 No Notes: (Same as:Chronulac) [facility] rifaximin 2020-02-17 02:00:00 No Notes: Mitchell e as: Xifaxan [facility] XIFAXAN 2020-02-16 22:00:00 No Notes: Same as: Xifaxan [facility] riFAXimin 550 mg oral tablet 2020-02-16 21:47:00 Yes 550 mg = 1 tab, PO, BID [facility] pantoprazole 40 MG Enteric Coated Tablet [Protonix] 02-15 21:47:00 No 40 mg = 1 tab, PO, Daily Chi Almonte Furosemide 40 MG Oral Tablet 2020-02-16 21:47:00 No 40 mg = 1 tab, PO, Daily Chi Almonte Lactulose 667 MG/ML Oral Solution 2020-02-16 21:00:00 No Notes: (Same as:Chronulac) Chi Al[facility]te Midodrine 2020-02-16 18:00:00 No Notes: (Sa me as:Proamatine) Chi Almonte NS 1,000 mL 2020-02-16 14:28:00 No 1,000 mL, Rate: 50 ml/hr, Infuse over: 20 hr, Route: IV, Dosing Weight 59.091 kg, Total Volume: 1,000, Start date: 02/16/20 9:28:00 CDT, Duration: 30 day, Stop date: 03/17/20 9:28:00 CDT, 1.6, m2, 0 Chi Almonte Keppra 2020-02-16 14:00:00 No Notes: Same as Boydppra Mix with 100 mL NS, LR or D5W MEDICATION WASTE Product Size: 500 mg Product Wasted: ___ mg Chi Almonte Dextrose 50% Syringe (D50W) 2020-02-16 11:04:00 No 12.5 gm, 25 mL, Route: IVP, Drug Form: INJ, Dosing Weight 59.091, kg, PRN, PRN Blood Glucose Results, Start date: 02/16/20 6:04:00 CDT, Duration: 30 day, Stop date: 03/17/20 6:03:00 CDT, 0 Chi Grecoann Glucagon 2020-02-16 11:04:00 No 1 mg, Route: IM, Drug form: PDR/INJ, PRN, Dosing Weight 59.091, kg, PRN Blood Glucose Results, Start date: 02/16/20 6:04:00 CDT, Duration: 30 day, Stop date: 03/17/20 6:03:00 CDT, 0 Chi Almonte pantoprazole additive 80 mg + Sodium Chloride 0.9% IV 100 mL 2020-02-16 09:45:00 No Notes: For IV push reconstitute with 10 ml 0.9% sodium chloride and push over 2 minutes. (Same as: Protonix) Chi Almonte Norepinephrine 2020-02-16 08:52:00 No Notes: Same as: Levophed. Administer by either central venous catheter or peripherally-inserted central catheter (PICC) line. Concentration: 0.032 mg / mL Chi Almonte Norepinephrine 2020-02-16 08:36:00 No Notes: Same as: Levophed. Administer by either central venous catheter or peripherally-inserted central catheter (PICC) line. Concentration: 0.032 mg / mL Chi Almonte Sodium Chloride 0.9% (Bolus) IV 2020-02-16 08:13:00 No 1,000 mL, 1000 ml/hr, Infuse Over: 1 hr, Route: IV, 1,000, Drug form: INJ, ONCE, Priority: STAT, Dosing Weight 59.091 kg, Start date: 02/16/20 3:13:00 CDT, Stop date: 02/16/20 3:13:00 CDT, 0 Chi Almonte Dextrose 50% Syringe (D50W) 2020-02-16 07:35:00 No 12.5 gm, 25 mL, Route: IVP, Drug Form: INJ, Dosing Weight 59.091, kg, PRN, PRN Blood Glucose Results, Start date: 02/16/20 2:35:00 CDT, Duration: 30 day, Stop date: 03/17/20 2:34:00 CDT, 0 Chi Almonte Glucagon 2020-02-16 07:35:00 No 1 mg, Route: IM, Drug form: PDR/INJ, PRN, Dosing Weight 59.091, kg, PRN Blood Glucose Results, Start date: 02/16/20 2:35:00 CDT, Duration: 30 day, Stop date: 03/17/20 2:34:00 CDT, 0 Chi Almonte Ondansetron 2020-02-16 07:35:00 No Notes: (Same as: Zofran) MEDICATION WASTE Product Size: 4 mg Product Wasted: ___ mg Chi Almonte Melatonin 2020-02-16 07:35:00 No Notes: (Sa me as: Melatonin) Chi [facility] Acetaminophen 2020-02-16 07:35:00 No Notes: Do not exceed 4 gm/day. (Same as: Tylenol) [facility] Lactated Ringers IV 1,000 mL 2020-02-16 07:35:00 No 1,000 mL, Rate: 75 ml/hr, Infuse over: 13.3 hr, Route: IV, Dosing Weight 59.091 kg, Total Volume: 1,000, Start date: 02/16/20 2:35:00 CDT, Duration: 30 day, Stop date: 03/17/20 2:34:00 CDT, 1.6, m2, 0 Mem[facility] Saline Flush 0.9% 2020-02-16 07:35:00 No Notes: (Same as: BD Posiflush) [facility] Ceftriaxone 2020-02-16 07:29:00 No Notes: (Same As: Rocephin). Use with 100 mL NS and infuse over 30 min MEDICATION WASTE Product Size: 1000 mg Product Wasted: ___ mg [facility] Hydralazine 2020-02-16 07:22:00 No Notes: (Same as: Apresoline) Push over 5 minutes [facility] Lactulose 2020-02-16 06:24:00 No Notes: Lactulose 300ml, Water for Irrigation 700ml - total volume = 1000ml [facility] Hydralazine 2020-02-16 06:12:00 No 10 mg, Route: IVP, ONCE, Dosing Weight 59.091, kg, Priority: STAT, Start date: 02/16/20 1:12:00 CDT, Stop date: 02/16/20 1:12:00 CDT [facility] Saline Flush 0.9% 2020-02-16 04:23:00 No Notes: (Same as: BD Posiflush) Chi Al[facility]te Sodium Chloride 0.154 MEQ/ML Injectable Solution 2016-10-19 14:5 5:00 No 1,000 mL, Rate: 25 ml/hr, In fuse over: 40 hr, Route: IV, Dosing Weight 79.347 kg, Total Volume: 1,000, Start date: 10/19/16 8:55:00 WIRE WHEELER, Duration: 1 day, Stop date: 10/20/16 8:54:00 WIRE WHEELER Mem orial [facility] Lactulose 667 MG/ML Oral Solution [Generlac] 2016-10-18 21:01:00 Yes 0 Refill(s) Chi Almonte spironolactone 50 mg oral tablet 2016-10-18 21:00:00 Yes 50 mg = 1 tab, PO, Daily, # 30 tab, 1 Refill(s) Tn ronaldo [facility] Streptococcus pneumoniae serotype 1 caps ular antigen diphtheria [id number] protein conjugate vaccine / Streptococcus pneumoniae serotype 14 capsular antigen diphtheria [id number] protein conjugate vaccine / Streptococcus pneumoniae serotype 18C capsular antigen d 2016-09-21 17:30:00 No Notes: Lightly roll vial (DO NOT SHAKE) before administration. (Same as: Prevnar 13) [facility] ferrous sulfate 325 mg oral enteric coated tablet 2016-09-21 14:28:00 Yes 325 mg = 1 tab, PO, Daily, # 30 tab, 0 Refill(s ) [facility] pantoprazole 40 mg oral enteric coated tablet 2016-09-21 14:26:0 0 Yes 40 mg = 1 tab, PO, Before Dinner, # 30 tab, 0 Refill(s) [facility] levofloxacin 250 mg oral tablet 2016-09-21 14:26:00 Yes 500 mg = 2 tab, PO, [id number], X 5 day, # 10 tab, 0 Refill(s) [facility] Lactulose 667 MG/ML Oral Solution 2016-09-21 14:26:00 Yes 10 gm = 15 mL, PO, BID, X 14 day, # 420 mL, 0 Refill(s) [facility] Levetiracetam 500 MG Oral Tablet [Keppra] 2016-09-21 14:26:00 Yes 500 mg = 1 tab, PO, Q12H, # 60 tab, 0 Refill(s) [facility] Folic Acid 1 MG Oral Tablet 2016-09-21 14:26:00 Yes 1 mg = 1 tab, PO, Daily, # 30 tab, 0 Refill(s) Meme[facility] l [facility] Sodium Chloride 0.154 MEQ/ML Injectable Solution 2016-09-21 13:4 7:00 No 1,000 mL, Rate: 25 ml/hr, In fuse over: 40 hr, Route: IV, Dosing Weight 81.818 kg, Total Volume: 1,000, Start date: 09/21/16 7:47:00 WIRE WHEELER, Duration: 1 day, Stop date: 09/22/16 7:46:00 WIRE WHEELER Mem orizeeshan Almonte Levetiracetam 500 MG Oral Tablet [Keppra] 2016-09-21 03:00:00 No Notes: (Same as:Keppra) [facility] Lactulose 667 MG/ML Oral Solution 2016-09-20 23:00:00 No Notes: (Same as:Chronulac) [facility] [place] Levetiracetam 2016-09-20 16:20:00 No Notes: Same as Keppra Mix with 100 mL NS, LR or D5W MEDICATION WASTE Product Size: 500 mg Product Wasted: ___ mg [facility] Lisinopril 2016-09-20 15:00:00 No Notes: (Same as: Prinivil, Zestril) [facility] Folic Acid 2016-09-20 15:00:00 No Notes: (S laura as: Folvite) [facility] Protonix 2016-09-19 22:30:00 No Notes: Tablet should not be chewed or crushed. (Same as: Protonix) Chi [facility] Levaquin 2016-09-19 22:00:00 No Notes: Do not give w/antacids, dairy pdt & minerals Take 1 hr before or 2 hr after dairy pdt (Same as:Levaquin) [facility] Plavix 2016-09-19 19:30:00 No Notes: (Same As: Plavix) Chi [facility] Saline Flush 0.9% 2016-09-19 02:32:00 No Notes: (Same as: BD Posiflush) [facility] Ondansetron 2016-09-19 02:32:00 No Notes: (Same as: Zofran) MEDICATION WASTE Product Size: 4 mg Product Wasted: ___ mg Chi [facility]te Sodium Chloride 0.154 MEQ/ML Injectable Solution 2016-09-19 02:3 2:00 No 1,000 mL, Rate: 75 ml/hr, In fuse over: 13.3 hr, Route: IV, Dosing Weight 81.818 kg, Total Volume: 1,000, Start date: 09/18/16 20:32:00 WIRE WHEELER, Duration: 30 day, Stop date: 10/18/16 20:31:00 WIRE WHEELER Me ronaldo Almonte clopidogrel 75 MG Oral Tablet [Plavix] 2016-09-19 00:31:00 Yes 75 mg = 1 tab, PO, Daily, 0 Refill(s) Marcia Almonte lisinopril 5 mg oral tablet 2016-09-19 00:31:00 Yes 5 mg = 1 tab, PO, Daily, 0 Refill(s) Chi [facility] Sodium Chloride 0.154 MEQ/ML Injectable Solution 2016-09-18 23:5 3:00 No 1,000 mL, Infuse Over: 1 hr, Route: IV, ONCE, Priority: STAT, Dosing Weight 81.818 kg, Start date: 09/18/16 17:53:00 WIRE WHEELER, Duration: 1 doses or times, Stop date: 09/18/16 17:53:00 WIRE WHEELER [facility] Her arredondo Versed 2016-09-18 23:35:00 No 5 mg, Route: IVP, ONCE, Dosing Weight 81.818, kg, Priority: STAT, Start date: 09/18/16 17:35:00 WIRE WHEELER, Stop date: 09/18/16 17:35:00 WIRE WHEELER [facility] Sodium Chloride 0.154 MEQ/ML Injectable Solution 2016-09-18 20:3 7:00 No 1,000 mL, 1,000 ml/hr, Infus e Over: 1 hr, Route: IV, ONCE, Priority: STAT, Dosing Weight 81.818 kg, Start date: 09/18/16 14:37:00 WIRE WHEELER, Duration: 1 doses or times, Stop date: 09/18/16 14:37:00 [facility] Sulfamethoxazole 800 MG / Trimethoprim 160 MG Oral Tablet [B actrim] 2016-04-29 09:28:00 Yes 1 tab, PO, BID, X 7 day, # 1 4 tab, 0 Refill(s) [facility] Alprazolam 0.5 MG Oral Tablet [Xanax] 2016-04-29 09:27:00 Y es 0.5 mg = 1 tab, PO, Q8H, PRN Anxiety, X 7 day, # 21 tab, 0 Refill(s) [facility] Sodium Chloride 0.154 MEQ/ML Injectable Solution 2016-04-29 06:0 1:00 No 1,000 mL, 2,000 ml/hr, Infus e Over: 30 minutes, Route: IV, 1,000, Drug form: INJ, ONCE, Priority: STAT, Dosing Weight 81.818 kg, Start date: 04/29/16 1:01:00 CDT, Duration: 1 doses or times, Stop date: 04/29/16 1:01:00 CDT [facility] Saline Flush 0.9% 2016-04-29 02:29:00 No Notes: (Same as: BD Posiflush) [facility] heparin 2012-03-23 21:00:00 No Jhon Bhavik Nava 5,000 unit, 1 mL, Route: SUB-Q, Drug form: INJ, Q12H, Start date: 03/23/12 16:00:00, Duration: 30 day, Stop date: 04/22/12 4:00:00 Marcia Almonte aspirin 325 mg tablet 2012-03-23 14:00:00 No Jhon Flo el Nava 325 mg, 1 tab, Route: PO, Drug form: TAB, Daily, Start date: 03/23/12 9:00:00, Duration: 30 day, Stop date: 04/21/12 9:00:00 [facility] Plavix 2012-03-23 14:00:00 No Jhon Bhavik Nava 75 mg, 1 tab, Route: PO, Drug form: TAB, Daily, Start date: 03/23/12 9:00:00, Duration: 30 day, Stop date: 04/21/12 9:00:00 Marcia Almonte dexamethasone 2 mg oral tablet 2012-03-23 13:37:06 Yes Aurea Floyd See Instructions, 48 tab, Mustafa bstitution Allowed, Take 2 tabs every 6 hours [...] a day x 2 days, then stop [facility] Pepcid 20 mg oral tablet 2012-03-23 13:36:53 Yes Aurea Floyd 20 mg, 1 tab, PO, BID, 24 tab, Substitution Allowed [facility] Plavix 75 mg oral tablet 2012-03-23 12:00:00 Yes Aurea Reedkman 75 mg, 1 tab, PO, Daily, 30 tab, Substitution Allowed, TAB [facility] aspirin 325 mg tablet 2012-03-23 11:59:58 Yes Aurea Reedkman 325 mg, 1 tab, PO, Daily, 30 tab, Substitution Allowed, TAB [facility]750 oral tablet 2012-03-23 11:59:44 Yes Aurea Reedkman 1-2 tab, PO, Q4-6H, PRN, 30 tab, Pain, S ubstitution Allowed, Soft Stop, TAB [facility] dexamethasone 2012-03-23 11:00:00 No Jeromy L Day 4 mg, 1 mL, Route: IV, Drug form: INJ, Q6H, Start date: 03/23/12 6:00:00, Duration: 30 day, Stop date: 04/22/12 0:00:00 [facility] potassium phosphate + Sodium Chloride 0.9% IV 250 mL 03-23 08:30:00 No Jeromy L Day 18 mmol, 6 mL, R oute: IV, ONCE, Start date: 03/23/12 3:30:00, Stop date: 03/23/12 3:30:00 [facility] magnesium sulfate 2012-03-23 08:00:00 No Jeromy L Day 2 gm, 50 mL, Route: IVPB, Drug form: INJ, ONCE, Start date: 03/23/12 3:00:00, Stop date: 03/23/12 3:00:00 [facility] senna 8.6 mg oral tablet 2012-03-23 02:00:00 No Jhon Bhavik Nava 8.6 mg, 1 tab, Route: PO, Drug Form: TAB, Bedtime, Start date: 03/22/12 21:00:00, Duration: 30 day, Stop date: 04/20/12 21:00:00 [facility] hydrALAZINE 2012-03-22 20:18:00 No Jhon Bhavik Nava 20 mg, 1 mL, Route: IV, Drug form: INJ, Q2H, PRN Elevated BP, Start date: 03/22/12 15:18:00, Duration: 30 day, Stop date: 04/21/12 15:17:00 [facility] insulin regular human recombinant 100 units/mL injectable so lution 2012-03-22 19:59:00 No Jhon Bhavik Nava 7 unit, 0.07 mL, Route: SUB-Q, Drug form: SOLN, PRN, PRN Abnormal Lab Result, Start date: 03/22/12 14:59:00, Duration: 30 day, Stop date: 04/21/12 14:58:00 [facility] Dextrose 50% Syringe 2012-03-22 19:59:00 No hJon Rossie l Nava 6.25 gm, 12.5 mL, Route: IVP, Drug Form: INJ, PRN, PRN Abnormal Lab Result, Start date: 03/22/12 14:59:00, Duration: 30 day, Stop date: 04/21/12 14:58:00 [facility] labetalol 2012-03-22 19:28:00 No Jhon Bhavik Nava 10 mg, 2 mL, Route: IVP, Drug form: INJ, Q1H, PRN Hypertension, Start date: 03/22/12 14:28:00, Duration: 30 day, Stop date: 04/21/12 13:28:00 [facility] senna 8.6 mg oral tablet 2012-03-22 19:11:00 No Jhon Bhavik Nava 1 tab, Route: PO, Drug Form: TAB, Bedtime, PRN Constipation, Start date: 03/22/12 14:11:00, Duration: 30 day, Stop date: 04/21/12 14:10:00 [facility] hydromorphone 2012-03-22 17:51:00 No Afshan Mata Darien 0.5 mg, 0.25 mL, Route: IVP, Drug form: INJ, Q5Min, PRN Pain Score 4-6, Start date: 03/22/12 12:51:00, Duration: 5 doses or times, Stop date: 03/23/12 0:00:00 [facility] ondansetron 2012-03-22 17:51:00 No Afshan R El 4 mg, 2 mL, Route: IVP, Drug form: INJ, ONCE, PRN Nausea & Vomiting, Start date: 03/22/12 12:51:00 [facility] flumazenil 2012-03-22 17:51:00 No Afshan Mata El 0.2 mg, 2 mL, Route: IVP, Drug form: INJ, PRN, PRN Benzodiazepine Reversal, Initial dose, Start date: 03/22/12 12:51:00, Duration: 30 day, Stop date: 04/21/12 12:50:00 [facility] naloxone 2012-03-22 17:51:00 No Afshan Mata El 0.04 mg, 0.1 mL, Route: IVP, Drug form: INJ, Q2MIN, PRN Narcotic Reversal, Start date: 03/22/12 12:51:00, Duration: 8 doses or times, Stop date: 03/23/12 0:00:00 [facility] Plavix 2012-03-22 17:39:00 No Domingo Barth 300 mg, 1 tab, Route: PO, Drug form: TAB, ONCE, Priority: NOW, Start date: 03/22/12 12:39:00, Duration: 1 doses or times, Stop date: 03/22/12 12:39:00 [facility] metoclopramide 2012-03-22 14:59:00 No Prasad E Gilmor e IV 10 mg, 2 mL, Route: IV, Drug form: INJ, ONCE, Priority: NOW, Start date: 03/22/12 9:59:00, Stop date: 03/22/12 9:59:00 [facility] heparin 2012-03-22 14:00:00 No Jhon Vick 5,000 unit, 1 mL, Route: SUB-Q, Drug form: INJ, Q12H, Start date: 03/22/12 9:00:00, Duration: 30 day, Stop date: 04/20/12 21:00:00 Zbigniew Rizvi Saline Flush 0.9% 2012-03-22 14:00:00 No Miguel Leon bdunncarly 5 ml, Route: IVP, Drug Form: INJ, Q12H, Start date: 03/22/12 9:00:00, Duration: 30 day, Stop date: 04/20/12 21:00:00 Zbigniew Rizvi docusate sodium 100 mg oral capsule 2012-03-22 14:00:00 No Miguel Clemente Abdunnur 100 mg, 1 cap, R oute: PO, Drug form: CAP, Q12H, Start date: 03/22/12 9:00:00, Duration: 30 day, Stop date: 04/20/12 21:00:00 [facility] lisin[facility] 2012-03-22 14:00:00 No Miguel Cornejo Abdunnur 20 mg, 1 tab, Route: PO, Drug form: TAB, Daily, Start date: 03/22/12 9:00:00, Duration: 30 day, Stop date: 04/20/12 9:00:00 Memzafar Grecoann Plavix 2012-03-22 14:00:00 No Jhon Bhavik Nava 75 mg, 1 tab, Route: PO, Drug form: TAB, Daily, Start date: 03/22/12 9:00:00, Duration: 30 day, Stop date: 04/20/12 9:00:00 [facility] jeovany Almonte aspirin 325 mg tablet 2012-03-22 14:00:00 No Jhon Flo el Nava 325 mg, 1 tab, Route: PO, Drug form: TAB, Daily, Start date: 03/22/12 9:00:00, Duration: 30 day, Stop date: 04/20/12 9:00:00 [facility] Saline Flush 0.9% 2012-03-22 13:28:00 No Miguel Leon bdunnur 5 ml, Route: IVP, Drug Form: INJ, PRN, PRN Line Flush, Start date: 03/22/12 8:28:00, Duration: 30 day, Stop date: 04/21/12 8:27:00 [facility] Sodium Chloride 0.9% IV 1,000 mL 2012-03-22 13:28:00 No Michelle Choi Ramirez 1,000 mL, Rate: 50 m l/hr, Infuse over: 20 hr, Route: IV, Dosing Weight 90.909 kg, Total Volume: 1,000, Start date: 03/22/12 8:28:00, Duration: 30 day, Stop date: 04/21/12 8:27:00 [facility] ondansetron 2012-03-22 13:28:00 No Miguel Ariasu r 4 mg, 2 mL, Route: IVP, Drug form: INJ, Q8H, PRN Nausea & Vomiting, Start date: 03/22/12 8:28:00, Duration: 30 day, Stop date: 04/21/12 8:27:00 [facility] acetaminophen-hydrocodone 325 mg-5 mg oral tablet 13:28:00 No Miguel Dickson 2 tab, Rou te: PO, Drug Form: TAB, Q4H, PRN Pain Score 4-6, Start date: 03/22/12 8:28:00, Duration: 30 day, Stop date: 04/21/12 8:27:00 [facility] morphine Sulfate 2012-03-22 13:28:00 No Miguel Pimentel dunnur 2 mg, 1 mL, Route: IVP, Drug form: INJ, Q1H, PRN Pain Score 7-10, Start date: 03/22/12 8:28:00, Duration: 30 day, Stop date: 04/21/12 8:27:00 [facility] Plavix 2012-03-22 13:11:00 No Domingo Barth 300 mg, Route: PO, Drug form: TAB, ONCE, Start date: 03/22/12 8:11:00, Duration: 1 doses or times, Stop date: 03/22/12 8:11:00 [facility] cefazolin 2012-03-22 11:22:00 No Miguel Dickson 2 gm, 100 mL, Route: IVPB, Drug form: INJ, PRE OP, Priority: STAT, Start date: 03/22/12 6:22:00, Duration: 1 day, Stop date: 03/23/12 6:21:00 [facility] Plavix 75 mg oral tablet 2012-03-14 11:47:00 No Aurea Conway Floyd 75 mg, 1 tab, PO, Daily, 30 tab, Substitution Allowed, TAB [facility] Aspirin Low Dose 81 mg oral tablet 2012-03-08 20:53:35 No 81 mg, 1 tab, PO, Daily, Substitution Allowed [facility]od[facility] ES 7.5/750 oral tablet 2012-03-08 20:51:46 No Aurea L Floyd 1-2 tab, PO, Q4-6H, PRN, 30 tab, Pain, Substitution Allowed, Sof t Stop [facility] lisinopril 2012-03-08 20:49:24 Yes Miguel Cornejo Abdunnur 20 mg, PO, Daily, Substitution Allowed [facility] aspirin 325 mg tablet 2011-03-22 11:48:00 No Aurea Floyd 325 mg, 1 tab, PO, Daily, 30 tab, Substitution Allowed, TAB [facility] Ferrous Sulfate Ferrous Sulfate Yes 325 Daily [facility] Folic Acid Folic Acid Yes 1 Daily [facility] Furosemide Furosemide Yes 40 Daily [facility] Lactulose Lactulose Yes 15 Three Times A Day [facility] Levetiracetam Levetiracetam Yes 500 Twice A Day [facility] Midodrine Hcl Midodrine Hcl Yes 10 Three Times A Day [facility] Pantoprazole Sodium (Protonix) 40 Mg TABLET. Pantopr azole Sodium (Protonix) 40 Mg TABLET. Yes 40 Daily [facility] Rifaximin (Xifaxan) 550 Mg TABLET Rifaximin (Xifaxan) 550 Mg TABLET Yes 550 Daily [facility] Spironolactone Spironolactone Yes 25 Daily [facility] Thiamine Hcl (Vitamin B-1) 100 Mg TABLET Thiamine Hcl (Vitamin B-1) 100 Mg TABLET Yes 100 Daily [facility] Vital Signs Vital Name Observation Time Observation Value Comments Source Body Temperature 2020-03-08 07:39:00 98.0 [degF] [facility] Weight 2020-03-08 00:22:00 189 [lb_av] [facility] BMI (Body Mass Index) 2020-03-08 00:22:00 36.9 kg/m2 [facility] Respitory Rate 2020-02-26 22:00:00 Memabbie Rizvi Systolic (mm Hg) 2020-02-26 22:00:00 Joel Almonte Diastolic (mm Hg) 2020-02-26 22:00:00 [facility] Respitory Rate 2020-02-26 21:00:00 [facility] Systolic (mm Hg) 2020-02-26 21:00:00 Joel rial [facility] Diastolic (mm Hg) 2020-02-26 21:00:00 [facility] [place] Respitory Rate 2020-02-26 20:00:00 [facility] [place] Systolic (mm Hg) 2020-02-26 20:00:00 [facility] Diastolic (mm Hg) 2020-02-26 20:00:00 [facility] Temperature Oral (F) 2020-02-26 09:00:00 98.1 F [facility] Temperature Oral (F) 2020-02-26 01:00:00 97.8 F [facility] Temperature Oral (F) 2020-02-23 09:00:00 98.8 F [facility] Heart Rate 2020-02-18 11:46:00 [facility] Heart Rate 2020-02-18 09:35:00 [facility] Heart Rate 2020-02-18 07:30:00 [facility] Height 2020-02-16 03:51:00 152.4 cm [facility] BMI Calculated 2020-02-16 03:51:00 [facility] Weight 2020-02-16 03:51:00 [facility] Systolic (mm Hg) 2016-10-19 17:38:00 Joel rial [place] Diastolic (mm Hg) 2016-10-19 17:38:00 [facility] Respitory Rate 2016-10-19 17:38:00 [facility] Respitory Rate 2016-10-19 17:23:00 [facility] [place] Systolic (mm Hg) 2016-10-19 17:23:00 Joel [facility] Diastolic (mm Hg) 2016-10-19 17:23:00 [facility] Respitory Rate 2016-10-19 17:08:00 [facility] Systolic (mm Hg) 2016-10-19 17:08:00 Joel rial [place] Diastolic (mm Hg) 2016-10-19 17:08:00 [facility] [place] Heart Rate 2016-10-19 14:53:00 [facility] Temperature Oral (F) 2016-10-18 20:38:00 98.0 F [facility] Heart Rate 2016-10-18 20:38:00 [facility] BMI Calculated 2016-10-18 20:38:00 [facility] Weight 2016-10-18 20:38:00 [facility] Height 2016-10-18 20:38:00 149.86 cm [facility] Systolic (mm Hg) 2016-09-21 17:17:00 Joel rial [place] Diastolic (mm Hg) 2016-09-21 17:17:00 [facility] Temperature Oral (F) 2016-09-21 17:17:00 97.9 F [facility] Respitory Rate 2016-09-21 17:17:00 [facility] [place] Heart Rate 2016-09-21 17:17:00 [facility] Systolic (mm Hg) 2016-09-21 14:42:00 Joel rial [place] Diastolic (mm Hg) 2016-09-21 14:42:00 [facility] Respitory Rate 2016-09-21 14:42:00 [facility] Systolic (mm Hg) 2016-09-21 14:27:00 Joel rial [facility] Diastolic (mm Hg) 2016-09-21 14:27:00 [facility] Respitory Rate 2016-09-21 14:27:00 [facility] Heart Rate 2016-09-21 13:52:00 [facility] Heart Rate 2016-09-21 13:02:00 [facility] Temperature Oral (F) 2016-09-21 13:02:00 98.3 F [facility] Temperature Oral (F) 2016-09-21 10:04:00 98.1 F [facility] Weight 2016-09-18 20:32:00 [facility] BMI Calculated 2016-09-18 20:32:00 [facility] Height 2016-09-18 20:32:00 149.86 cm [facility] Systolic (mm Hg) 2016-04-29 10:27:00 Joel rial [facility]age Diastolic (mm Hg) 2016-04-29 10:27:00 [facility] Respitory Rate 2016-04-29 10:27:00 [facility] Temperature Oral (F) 2016-04-29 10:27:00 98.2 F [facility] Systolic (mm Hg) 2016-04-29 09:20:00 Joel rial [place] Diastolic (mm Hg) 2016-04-29 09:20:00 [facility] [place] Temperature Oral (F) 2016-04-29 09:20:00 98.3 F [facility] Respitory Rate 2016-04-29 09:20:00 [facility] Temperature Oral (F) 2016-04-29 07:20:00 98.2 F [facility] Respitory Rate 2016-04-29 07:20:00 [facility] [place] Systolic (mm Hg) 2016-04-29 07:20:00 Joel rial Gage Diastolic (mm Hg) 2016-04-29 07:20:00 [facility] Heart Rate 2016-04-29 02:28:00 [facility] Weight 2016-04-29 02:28:00 [facility] BMI Calculated 2016-04-29 02:28:00 [facility] Height 2016-04-29 02:28:00 149.86 cm [facility] Respitory Rate 2012-03-23 17:00:00 [facility] [place] Diastolic (mm Hg) 2012-03-23 16:00:00 [facility] [place] Systolic (mm Hg) 2012-03-23 16:00:00 Joel rial [place] Respitory Rate 2012-03-23 16:00:00 [facility] [place] Diastolic (mm Hg) 2012-03-23 15:00:00 [facility] Respitory Rate 2012-03-23 15:00:00 [facility] [place] Systolic (mm Hg) 2012-03-23 15:00:00 Joel rial [place] Systolic (mm Hg) 2012-03-23 14:00:00 Joel rial [place] Diastolic (mm Hg) 2012-03-23 14:00:00 [facility] [place] Temperature Oral (F) 2012-03-23 09:00:00 97.1 F [facility] Temperature Oral (F) 2012-03-23 05:00:00 97.1 F [facility] Temperature Oral (F) 2012-03-23 01:00:00 97.1 F [facility] Heart Rate 2012-03-22 11:45:00 [facility] Height 2012-03-22 11:45:00 149.86 cm [facility] Weight 2012-03-22 11:45:00 [facility] Height 2012-03-08 20:19:00 149.86 cm [facility] Weight 2012-03-08 20:19:00 [facility] Procedures Procedure Date / Time Performed Performing Clinician Madeleine e Computed tomography angiography of brain 2020-03-08 00:00:00 [facility] Computed tomography of abdomen and pelvis with contrast 00:00:[address] [facility] [address] angiography of neck 2020-03-08 00:00:00 [facility] Biopsy of liver [facility] section [facility] n Esophagogastroduodenoscopy Memor [facility] Removal of gallstones from liver [facility] Plan of Care Planned Activity Planned Date Details Comments Source Instructions Urinary Tract Infection - Women [facility] Encounters Start Date/Time End Date/Time Encounter Type Admission Type Att[facility] Emergency Department Facility Care Department Encounter ID Source 2020-03-08 00:41:00 2020-03-08 08:30:00 Departed Emergency Room 1 SYLVIA JAQUEZ [facility] [id number] I [facility] 2020-02-15 22:38:15 2020-02-26 19:00:00 Outpatient [place] [facility] [id number] 2020-02-16 02:53:00 2020-02-15 22:38:00 Inpatient E [facility] MED [id number] [facility] 2017-11-22 08:30:00 2017-11-22 08:30:00 Outpatient [facility] MED [id number] [facility] 2017-11-17 12:35:00 2017-11-17 23:59:00 Outpatient Heber Tim [facility] [id number] 2016-10-19 07:49:00 2016-10-19 11:51:00 Outpatient Perico DuenasE [facility] [id number] 2016-09-18 14:17:00 2016-09-21 12:48:00 Outpatient Heber Tim SE [facility] [id number] 2016-04-28 21:22:00 2016-04-29 05:30:00 Outpatient Veda Cid [facility] [id number] Results Test Description Test Time Test Comments Results Result Comments Source Urine color determination 2020-03-08 05:05:00 Test Item Urine Color (test code = 5778-6) SELVIN YELLOW [facility] [id number] 05:05:00* Test Item Value Reference Range Interpretation Comments Urine Clarity (test code = 29958-3) [facility] by Test strip 2020-03-08 05:05:00* Test Item Value Reference Range Interpretation Comments Urine Specific [place] (test code = 5811-5) 1.010 1.010-1.02 5 [facility] measurement by automated test [id number] 05:05:00* Test Item Value Reference Range Interpretation Comments Urine pH (test code = 19506-3) 6.5 5-7 [facility] leukocyte esterase detection by [id number] 05:05:00* Test Item Value Reference Range Interpretation Comments Urine Leukocyte Esterase (test code = 5799-2) NEGATIVE NEGATIVE [facility] nitrite [id number] 05:05:00* Test Item Value Reference Range Interpretation Comments Urine Nitrite (test code = 59152-0) POSITIVE NEGATIVE [facility] protein measurement by test strip (mass/volume)2020-03-08 05:05:00* Test Item Value Reference Range Interpretation Comments Urine Protein (test code = 5804-0) NEGATIVE NEGATIVE [facility] glucose [id number] 05:05:00* Test Item Value Reference Range Interpretation Comments Urine Glucose (UA) (test code = 2349-9) NEGATIVE NEGATIVE [facility] ketones detection by automated test [id number] 05:05:00* Test Item Value Reference Range Interpretation Comments Urine Ketones (test code = 94672-0) NEGATIVE NEGATIVE [facility] urobilinogen measurement by test strip (mass/volume)2020-03-08 05:05:00* Test Item Value Reference Range Interpretation Comments Urine Urobilinogen (test code = 28484-1) 0.2 0.2-1 [facility] total bilirubin measurement (mass/volume)2020-03-08 05:05:00* Test Item Value Reference Range Interpretation Comments Urine Bilirubin (test code = 1978-6) NEGATIVE NEGATIVE [facility] erythrocytes [id number] 05:05:00* Test Item Value Reference Range Interpretation Comments Urine Blood (test code = 76982-5) TRACE NEGATIVE [facility] urine sediment leukocyte count by microscopy (number/high power field)2020-03-08 05:05:00* Test Item Value Reference Range Interpretation Comments Urine WBC (test code = 5821-4) 6-10 0-5 [facility]rythrocytes detection in urine sediment by light [id number] 05:05:00* Test Item Value Reference Range Interpretation Comments Urine RBC (test code = 35695-3) 6-10 0-5 [facility] detection in urine sediment by light [id number] 05:05:00* Test Item Value Reference Range Interpretation Comments Urine Bacteria (test code = 08093-3) MANY NONE [facility] Hospital[facility]pithelial cells detection in urine sediment by light [id number] 05:05:00* Test Item Value Reference Range Interpretation Comments Urine Epithelial Cells (test code = 85694-2) MODERATE NONE [facility] [id number] 04:12:00 [facility] [address] [address] Patient Name: DIANE SIMEON MR #: [id number] : 4 Age/Sex: 64/F Req #: [id number] Adm Physician: Ordered by: SYLVIA JAQUEZ DO Report #: [id number] Location: ER Room/Bed: Procedure: [id number] CT/CT ABDOMEN/PELVIS W Exam Date: 03/08/20 Exam Time: 0315 REPORT STATUS: Signed EXAM: CT Abdomen and Pelvis WITH contrast INDICATION: Abdominal pain. Jaundice. COM PARISON: None. TECHNIQUE: Abdomen and pelvis were scanned utilizing a multidet william helical scanner from the lung base to the pubic symphysis after administ ration of IV contrast. Coronal and sagittal reformations were obtained. Routin e protocol was performed. Scan was performed when during portal venous phase. IV CONTRAST: 100 cc Isovue-370 ORAL CONTRAST: Water RADIATION DOSE: Total DLP: 2176.62 mGy*cm Estimated effective dose: (DLP x 0.015 x size factor) mSv COMPLICATIONS: No ne FINDINGS: LINES and TUBES: None. LOWER THORAX: Small right an d trace left pleural effusions. Compressive subsegmental atelectasis of the ri ght lower lobe. Trace pericardial effusion. HEPATOBILIARY: Nodular hepatic contour, with atrophy of the medial segment of the left hepatic lobe, consiste nt with cirrhotic morphology. 6 mm low-attenuation lesion in the hepatic dome on image 12 series 6 is too small to be characterized.. No biliary ductal dil ation. GALLBLADDER: No radio-opaque stones or sludge. No wall thickening. SPLEEN: Mild splenomegaly. PANCREAS: No focal masses or ductal dilat ation. ADRENALS: No adrenal nodules KIDNEYS/URETERS: Kidneys enh ance symmetrically. No hydronephrosis. 1.9 cm high attenuation lesion exophyt ic of the posterior lower pole of the left kidney with dependent high attenuat ion may represent a hemorrhagic cyst, however, not completely characterized in this postcontrast exam.. No stones. GI TRACT: No abnormal distention, wal l thickening, or evidence of bowel obstruction. There are a few diverticula w ithin the colon without evidence of diverticulitis. Appendix is nonvisualized , however, no evidence of PELVIC ORGANS/BLADDER: Small calcified leiomyoma exophytic of the posterior uterine fundus. LYMPH NODES: No lymphadenopath y. VESSELS: Large collateral vessels about the splenic vein, with severe na rrowing of the portal vein consistent with collateral circulation with splenor enal shunt. 1.2 cm eggshell type calcification in the splenic hilum may repres ent a thrombosed aneurysm. Prominent right gonadal vein. PERITONEUM / RET ROPERITONEUM: No free air or fluid. BONES: There are degenerative changes i n the lumbar spine. Bulky posterior endplate osteophytes at T12-L1. Marked fac et arthropathy at T10-T11 with impingement on the right posterolateral spinal canal. SOFT TISSUES: Mild diffuse subcutaneous edema. IMPRESSION: 1 . Hepatic cirrhosis. 2. Mild splenomegaly. 3. Portal hypertension with co llateral circulation. 4. Small right pleural effusion and right basilar subse gmental atelectasis. 5. 1.9 cm complex cystic lesion in the lower pole of the left kidney is indeterminate. Recommend further evaluation with nonemergent d edicated CT of abdomen without and with contrast adrenal mass protocol. S igned by: Dr. Carlos Guerra M.D. on 03/08/2020 4:27 AM Dictated By : NATTY GUERRA MD, MD 6 COPY TO: ERICKSON JAQUEZ DO CHEST SINGLE (PORTABLE)2020-03-08 04:08:00 [place] [address] Patient Name: DIANE SIMEON MR #: [id number] : 1955 Age/Sex: 64/F Req #: [id number] Adm Physician: Ordered by: SYLVIA JAQUEZ DO Report #: [id number] Location: ER Room/Bed: Procedure: [id number] DX/QUINT[place] ST SINGLE (PORTABLE) Exam Date: 03/08/20 Exam Time: 0350 REPORT STATUS: Signed EXAMI NATION: CHEST SINGLE (PORTABLE) INDICATION: EDEMA TO BLE [id number] COMPARISON: None FINDINGS: TUBES and LINES: None. LUNGS: Lungs are well inflated. Mild perihilar patchy density, left greater than right may represent mild asymmetric pulmonary edema. There is mild promi nence of the central pulmonary vasculature, consistent with pulmonary venous c ongestion. PLEURA: Bilateral small pleural effusions. No pneumothorax. HEART AND MEDIASTINUM: Cardiac size is mildly enlarged. BONES AND SO FT TISSUES: No acute osseous lesion. Soft tissues are unremarkable. UPP ER ABDOMEN: No free air under the diaphragm. IMPRESSION: Bilateral p ulmonary venous congestion and mild asymmetric pulmonary edema. Signed b y: Dr. Carlos Guerra M.D. on 03/08/2020 4:12 AM Dictated By: NATTY GUERRA MD, MD 1 Transcribed By: AL on 03/08/20411 COPY TO: SYLVIA JAQUEZ DO CTA [id number] 04:03:00 [place] [address] Patient Name: DIANE SIMEON MR #: [id number] : 1955 Age/Sex: 64/F Req #: [id number] Adm Physician: Ordered by: SYLVIA JAQUEZ DO Report #: [id number] Location: ER Room/Bed: Procedure: [id number] CT/CTA NECK Exam Date: 03/08/20 Exam Time: 0315 REPORT STATUS: Signed EXAMINATION: CT douglas o of the neck and head with contrast. HISTORY:Altered mental status and slurred speech for 3 days. COMPARISON:None. TECHNIQUE: Multidetector dafne [place] axial images were acquired through the neck and head during infusion of i odinated contrast material. Images were reviewed in multiplanar and 3-dimensio nal format. Dose modulation, iterative reconstruction, and/or weight based ad justment of the mA/kV was utilized to reduce the radiation dose to as low as r easonably achievable. Contrast: 100 mL of Isovue-370 . FINDINGS: CT head: Skull/scalp: No lytic or blastic. lesions. No surgical changes. Parenchyma: Cortical/subcortical based hypodensity in right parietal lobe and focal patchy hypodensity in left subinsular region represents age indet erminate vascular insult. Nonspecific few, scattered supratentorial white shay er hypodensity are likely related to small vessel ischemic changes. Suboptim al evaluation particularly of skull base and posterior fossa structures due to streak artifacts. No acute hemorrhage, mass or acute major vascular territori al infarct. Arteries: No density suggestive of thrombosis. Vascular stent in the distal petrous and cavernous segment of left internal carotid artery. Dural sinuses: No abnormal density suggestive of thrombosis. Ventr icles: No hydrocephalus or displacement. Extra-axial spaces: Mild prominen ce of bilateral frontoparietal extra-axial space which is diffusely hypodense, and approximately measures 5 mm in maximum thickness on the right side and 5. 5 mm in maximum thickness on the left with regional mass effect. No midline shift. Brain volume: Normal for age. Craniocervical junction: No mas s, Chiari malformation, or basilar invagination. Sella: No mass. Paranasal/mastoid sinuses: Opacification of partially visualized hypoplastic r ight maxillary sinus. Partial sclerosis and under pneumatization of right mast oid air cells possibly related to chronic inflammation. NECK: If carotid bulb stenosis is present, stenosis is measured with respect to the distal extr acranial internal carotid artery. Aortic arch and major vessels: Patent. Common origin of the brachiocephalic trunk and left common carotid artery. F ew, scattered nonstenotic atherosclerotic calcification in the aortic arch. Common carotid arteries: Patent, retropharyngeal course of bilateral common c arotid arteries. Cervical carotid bifurcations: Patent, no abnormality. Internal carotid arteries: Right: Patent. Left: Patent. Vertebral a rteries: Right vertebral artery is patent. Few, scattered nonstenotic hard a therosclerotic plaque in V2 segment of left vertebral artery without significa nt stenosis. Incidental finding: Right pleural effusion. Right dependent atelectasis. Cervical spine: C4-C5: Mild right foraminal stenosis due to fac et and uncovertebral arthrosis. C5-C6: Mild right foraminal stenosis due to fa cet arthrosis. HEAD: Internal carotid arteries: Right: 3.5 mm saccul ar aneurysm arising from medial aspect of the cavernous segment of right inter nal carotid artery, oriented medially towards the sella. The neck approximatel y measures 2.6 mm. Left: Vascular stent in the distal petrous and cavernous se gment of left internal carotid artery. The metallic stent limits evaluation du e to artifacts, despite the limitation of flow within the stent appears to the patent with good distal flow. Bilateral anterior and middle cerebral arteri es are patent. Vertebral arteries: Patent. Basilar artery: Patent. Posterior cerebral arteries: Patent. Anatomical variants: Anterio r communicating artery :Not well-visualized Posterior communicating arteries: Not visualized. Vertebral arteries: Codominant. IMPRESSION: CT head: 1. Age indeterminate vascular insult in left subinsular region and possible ch ronic vascular insult in right parietal lobe. 2. Mild supratentorial white mat ter microvascular ischemic changes. 3. Mild bilateral frontoparietal chronic s ubdural hemorrhage vs subdural hygroma with regional mass effect. No midline s hift or brain herniation. 4. Left internal carotid vascular stent in the richard us and cavernous segment. CTA head and neck: 1. 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 2. Vascular stent in the distal petrous and cavernous segment of lef t internal carotid artery, suboptimal evaluation at this level due to metallic artifacts. Despite the limitation stent is patent with good distal flow. This can be better evaluated with conventional angiogram if clinically indicated. 3. Few, scattered nonstenotic atherosclerotic calcification particularly in th e aortic arch and V2 segment of left vertebral artery. Signed by: Dr. Prosper Basilio M.D. on 03/08/2020 4:41 AM Dictated By: PROSPER Avery 0 Transcribed By : AL on 03/08/20440 COPY TO: SYLVIA JAQUEZ DO CTA [id number] 04:03:00 [place] [address] Patient Name: DIANE SIMEON MR #: [id number] : 1955 Age/Sex: 64/F Req #: [id number] Adm Physician: Ordered by: SYLVIA JAQUEZ DO Report #: [id number] Location: ER Room/Bed: Procedure: [id number] CT/CTA BRAIN Exam Date: 03/08/20 Exam Time: 314 REPORT STATUS: Signed EXAMINATION: CT ang io of the neck and head with contrast. HISTORY:Altered mental status and slurred speech for 3 days. COMPARISON:None. TECHNIQUE: Multidetector hel ica axial images were acquired through the neck and head during infusion of iodinated contrast material. Images were reviewed in multiplanar and 3-dimensi onal format. Dose modulation, iterative reconstruction, and/or weight based a djustment of the mA/kV was utilized to reduce the radiation dose to as low as reasonably achievable. Contrast: 100 mL of Isovue-370 . FINDINGS: CT head: Skull/scalp: No lytic or blastic. lesions. No surgical changes . Parenchyma: Cortical/subcortical based hypodensity in right parietal lob e and focal patchy hypodensity in left subinsular region represents age inde terminate vascular insult. Nonspecific few, scattered supratentorial white mat ter hypodensity are likely related to small vessel ischemic changes. Subopti mal evaluation particularly of skull base and posterior fossa structures due t o streak artifacts. No acute hemorrhage, mass or acute major vascular territor ial infarct. Arteries: No density suggestive of thrombosis. Vascular stent in the distal petrous and cavernous segment of left internal carotid artery. Dural sinuses: No abnormal density suggestive of thrombosis. Vent ricles: No hydrocephalus or displacement. Extra-axial spaces: Mild promine nce of bilateral frontoparietal extra-axial space which is diffusely hypodense , and approximately measures 5 mm in maximum thickness on the right side and 5 .5 mm in maximum thickness on the left with regional mass effect. No midline shift. Brain volume: Normal for age. Craniocervical junction: No ma ss, Chiari malformation, or basilar invagination. Sella: No mass. Paranasal/mastoid sinuses: Opacification of partially visualized hypoplastic right maxillary sinus. Partial sclerosis and under pneumatization of right mas toid air cells possibly related to chronic inflammation. NECK: If carotid bulb stenosis is present, stenosis is measured with respect to the distal ext racranial internal carotid artery. Aortic arch and major vessels: Patent. Common origin of the brachiocephalic trunk and left common carotid artery. Few, scattered nonstenotic atherosclerotic calcification in the aortic arch. Common carotid arteries: Patent, retropharyngeal course of bilateral common carotid arteries. Cervical carotid bifurcations: Patent, no abnormality. Internal carotid arteries: Right: Patent. Left: Patent. Vertebral arteries: Right vertebral artery is patent. Few, scattered nonstenotic hard atherosclerotic plaque in V2 segment of left vertebral artery without signific ant stenosis. Incidental finding: Right pleural effusion. Right dependent atelectasis. Cervical spine: C4-C5: Mild right foraminal stenosis due to fa cet and uncovertebral arthrosis. C5-C6: Mild right foraminal stenosis due to f acet arthrosis. 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 The neck approximate ly measures 2.6 mm. Left: Vascular stent in the distal petrous and cavernous s egment of left internal carotid artery. The metallic stent limits evaluation d ue to artifacts, despite the limitation of flow within the stent appears to th e patent with good distal flow. Bilateral anterior and middle cerebral arter ies are patent. Vertebral arteries: Patent. Basilar artery: Patent . Posterior cerebral arteries: Patent. Anatomical variants: Anteri or communicating artery :Not well-visualized Posterior communicating arteries: Not visualized. Vertebral arteries: Codominant. IMPRESSION: CT head: 1. Age indeterminate vascular insult in left subinsular region and possible c hronic vascular insult in right parietal lobe. 2. Mild supratentorial white ma tter microvascular ischemic changes. 3. Mild bilateral frontoparietal chronic subdural hemorrhage vs subdural hygroma with regional mass effect. No midline shift or brain herniation. 4. Left internal carotid vascular stent in the elena ous and cavernous segment. CTA head and neck: 1. 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 2. Vascular stent in the distal petrous and cavernous segment of le ft internal carotid artery, suboptimal evaluation at this level due to metalli c artifacts. Despite the limitation stent is patent with good distal flow. Thi s can be better evaluated with conventional angiogram if clinically indicated. 3. Few, scattered nonstenotic atherosclerotic calcification particularly in t he aortic arch and V2 segment of left vertebral artery. Signed by: Dr. Prosper Basilio M.D. on 03/08/2020 4:41 AM Dictated By: PROSPER BASILIO MD 0 Transcribed B y: AL on 03/08/20440 COPY TO: SYLVIA JAQUEZ DO BNP Yge-tAzt5090-97-26 02:30:00* Test Item Value Reference Range Interpretation Comments B-Type Natriuretic Peptide (test code = 07671-2) 596.9 0-100 [facility] (number/volume)2020-03-08 00:30:00* Test Item Value Reference Range Interpretation Comments White Blood Count (test code = 6690-2) 4.21 4.8-10.8 [facility] automated count (number/volume)2020-03-08 00:30:00* Test Item Value Reference Range Interpretation Comments Red Blood Count (test code = 789-8) 2.65 3.6-5.1 [facility] measurement (moles/volume)2020-03-08 00:30:00* Test Item Value Reference Range Interpretation Comments Hemoglobin (test code = 93035-7) 8.2 12.0-16.0 [facility]Autom[facility] blood hematocrit (volume fraction)2020-03-08 00:30:00* Test Item Value Reference Range Interpretation Comments Hematocrit (test code = 4544-3) 25.9 34.2-44.1 [facility]Autom[facility] erythrocyte mean corpuscular mysbcf1878-26-73 00:30:00* Test Item Value Reference Range Interpretation Comments Mean Corpuscular Volume (test code = 787-2) 97.7 81-99 [facility] HospitalAutom[facility] erythrocyte mean corpuscular hemoglobin (mass per erythrocyte)2020-03-08 00:30:00* Test Item Value Reference Range Interpretation Comments Mean Corpuscular Hemoglobin (test code = 785-6) 30.9 28-32 [facility]Aut[facility] erythrocyte mean corpuscular hemoglobin concentration measurement (mass/volume)2020-03-08 00:30:00* Test Item Value Reference Range Interpretation Comments Mean Corpuscular Hemoglobin Concent (test code = 786-4) 31.7 31-35 [facility] HospitalRDW ZvuKm-Mtm7427-05-26 00:30:00* Test Item Value Reference Range Interpretation Comments Red Cell Distribution Width (test code = 90294-9) 17.5 11.7 -14.4 [facility]Aut[facility] [place] platelet count (count/volume)2020-03-08 00:30:00* Test Item Value Reference Range Interpretation Comments Platelet Count (test code = 777-3) 37 140-360 Results repeated and [facility] at 0050 on 03/08/20 by Andrés Ferrer. Read back and verified.[facility] HospitalAutomated blood segmented neutrophil count as percentage of total szdfdnjdaf7392-95-75 00:30:00 * Test Item Value Reference Range Interpretation Comments Neutrophils (%) (Auto) (test code = 14200-1) 46.8 38.7-80.0 [facility] HospitalAutom[facility] blood lymphocyte count as percentage ot total bjnpcyurau5423-09-36 00:30:00* Test Item Value Reference Range Interpretation Comments Lymphocytes (%) (Auto) (test code = 736-9) 37.8 18.0-39.1 [facility] HospitalAutom[facility] blood monocyte count as percentage of total zdyyymkzsg2007-98-13 00:30:00* Test Item Value Reference Range Interpretation Comments Monocytes (%) (Auto) (test code = 5905-5) 10.2 4.4-11.3 [facility]Autom[facility] blood eosinophil count as percentage of total qkbmobkway0209-09-00 00:30:00* Test Item Value Reference Range Interpretation Comments Eosinophils (%) (Auto) (test code = 713-8) 4.0 0.0-6.0 [facility] HospitalAutomated blood basophil count as percentage of total lelobabyfx0635-21-44 00:30:00* Test Item Value Reference Range Interpretation Comments Basophils (%) (Auto) (test code = 706-2) 1.0 0.0-1.0 [facility] HospitalFluoroscopic procedure less than one hour tbzsjdtz3222-96-50 00:30:00* Test Item Value Reference Range Interpretation Comments IM GRANULOCYTES % (test code = IM GRANULOCYTES %) 0.2 0.0- 1.0 [facility] HospitalAutomated blood neutrophil count 2020-03-08 00:30:00* Test Item Value Reference Range Interpretation Comments Neutrophils # (Auto) (test code = 751-8) 2.0 2.1-6.9 [facility] HospitalBlood lymphocytes count (number/volume) 2020-03-08 00:30:00* Test Item Value Reference Range Interpretation Comments Lymphocytes # (Auto) (test code = 59603-9) 1.6 1.0-3.2 [facility] HospitalBlood monocytes automated count (number/volume)2020-03-08 00:30:00* Test Item Value Reference Range Interpretation Comments Monocytes # (Auto) (test code = 742-7) 0.4 0.2-0.8 [facility] HospitalAutomated blood eosinophil count 2020-03-08 00:30:00* Test Item Value Reference Range Interpretation Comments Eosinophils # (Auto) (test code = 711-2) 0.2 0.0-0.4 [facility] HospitalAutomated blood basophil count (count/volume)2020-03-08 00:30:00* Test Item Value Reference Range Interpretation Comments Basophils # (Auto) (test code = 704-7) 0.0 0.0-0.1 [facility] HospitalFluoroscopic procedure less than one hour uagxqarr8225-91-03 00:30:00* Test Item Value Reference Range Interpretation Comments Absolute Immature Granulocyte (auto (sophia t code = Absolute Immature Granulocyte (auto) 0.01 0-0.1 [facility] plasma sodium measurement (moles/volume)2020-03-08 00:30:00* Test Item Value Reference Range Interpretation Comments Sodium Level (test code = 2951-2) 143 136-145 [facility]villeer[facility] or plasma potassium measurement (moles/volume)2020-03-08 00:30:00* Test Item Value Reference Range Interpretation Comments Potassium Level (test code = 2823-3) 3.1 3.5-5.1 [facility] or plasma chloride measurement (moles/volume)2020-03-08 00:30:00* Test Item Value Reference Range Interpretation Comments Chloride Level (test code = 2075-0) 99 98-107 [facility]villeerum or plasma carbon dioxide, total measurement (moles/volume)2020-03-08 00:30:00* Test Item Value Reference Range Interpretation Comments Carbon Dioxide Level (test code = 2028-9) 34 22-29 [facility]ville[facility] or plasma anion hsa9432-49-46 00:30:00* Test Item Value Reference Range Interpretation Comments Anion Gap (test code = 25020-3) 13.1 8-16 [facility]ville[facility] or plasma urea nitrogen measurement (mass/volume)2020-03-08 00:30:00* Test Item Value Reference Range Interpretation Comments Blood Urea Nitrogen (test code = 3094-0) 7 7-26 [facility] or plasma creatinine measurement (mass/volume)2020-03-08 00:30:00* Test Item Value Reference Range Interpretation Comments Creatinine (test code = 2160-0) 1.27 0.57-1.11 [facility]ville[facility] or plasma urea nitrogen/creatinine mass rkyqf5000-16-26 00:30:00* Test Item Value Reference Range Interpretation Comments BUN/Creatinine Ratio (test code = 3097-3) 6 6-25 [facility] HospitalEstimated glomerular filtration rate (GFR) lzezybjrpluyi2261-85-58 00:30:00* Test Item Value Reference Range Interpretation Comments Estimat Glomerular Filtration Rate (test code = 237036766) 42 >60 Ranges were taken from the National Kidney Disease Education Program and the [facility]ney Foundation literature.Reference ranges:60 or greater: Dohuts18-15 ( for 3 consecutive months): Chronic kidney disease 15 or less: Kidney failureCHRISTUS Saint Michael HospitalGlucose eyehiejmlja4374-45-27 00:30:00* Test Item Value Reference Range Interpretation Comments Glucose Level (test code = GDG8420) 92 74-118 [facility]ville[facility] or plasma calcium measurement (mass/volume)2020-03-08 00:30:00* Test Item Value Reference Range Interpretation Comments Calcium Level (test code = 53472-6) 8.7 8.4-10.2 [facility] or plasma total bilirubin measurement (mass/volume)2020-03-08 00:30:00* Test Item Value Reference Range Interpretation Comments Total Bilirubin (test code = 1975-2) 4.8 0.2-1.2 [facility] HospitalFluoroscopic procedure less than one hour iyfionlg2811-15-29 00:30:00* Test Item Value Reference Range Interpretation Comments Aspartate Amino Transf (AST/SGOT) (test code = Aspartate Amino Transf (AST/SGOT)) 54 5-34 [facility]villeer[facility] or plasma alanine aminotransferase measurement (enzymatic activity/volume)2020-03-08 00:30:00* Test Item Value Reference Range Interpretation Comments Alanine Aminotransferase (ALT/SGPT) (test code = 1742-6) 24 0-55 [facility] HospitalAmmonia Hwd-lFsx5584-84-26 00:30:00* Test Item Value Reference Range Interpretation Comments Ammonia (test code = 64626-9) 68 31-123 [facility]villeer[facility] or plasma protein measurement (mass/volume)2020-03-08 00:30:00* Test Item Value Reference Range Interpretation Comments Total Protein (test code = 2885-2) 6.2 6.5-8.1 [facility] or plasma albumin measurement (mass/volume)2020-03-08 00:30:00* Test Item Value Reference Range Interpretation Comments Albumin (test code = 1751-7) 3.1 3.5-5.0 [facility] HospitalPlasma globulin measurement (mass/volume) 2020-03-08 00:30:00* Test Item Value Reference Range Interpretation Comments Globulin (test code = 77958-9) 3.1 2.3-3.5 [facility]ville[facility] or plasma albumin/globulin mass uwvzg3267-09-96 00:30:00* Test Item Value Reference Range Interpretation Comments Albumin/Globulin Ratio (test code = 1759-0) 1.0 0.8-2.0 [facility] or plasma alkaline phosphatase measurement (enzymatic activity/volume)2020-03-08 00:30:00* Test Item Value Reference Range Interpretation Comments Alkaline Phosphatase (test code = 6768-6) 122 40-150 [facility] or plasma amylase measurement (enzymatic activity/volume)2020-03-08 00:30:00* Test Item Value Reference Range Interpretation Comments Amylase Level (test code = 1798-8) 33 25-125 [facility]ville[facility] or plasma lipase measurement (enzymatic activity/volume)2020-03-08 00:30:00* Test Item Value Reference Range Interpretation Comments Lipase (test code = 3040-3) 11 8-78 [facility]ville[facility] or plasma ethanol measurement (mass/volume)2020-03-08 00:30:00* Test Item Value Reference Range Interpretation Comments Ethyl Alcohol Level (test code = 5643-2) < 10.0 0.0-10.0 [facility] HospitalCHEM CRZWV9816-28-39 22:18:001.9[facility]CHEM JZAEV7381-64-29 22:18:002.5[facility]annCHEM LAGCU2186-48-37 11:54:59426Aqcirxem HermannCHEM HRXLS4145-59-04 11:54:0010[facility]annCHEM KHUSG1707-27-54 11:54:000.81[facility]annCHEM NHIUV2717-03-87 11:54:87677 [facility]CHE[facility] NMPPH4196-41-42 11:54:004.0[facility]annCHEM PANEL 2020-02-26 11:54:03793Dwlqrsrp [facility]annCHEM QXEKP1837-26-22 11:54:0021[facility]annCHEM EMERB7414-08-45 11:54:008.0[facility]annCHE[facility] KOJQU6375-78-65 11:54:005.1[facility]annCHEM EZGVA8654-70-35 11:54:002.4[facility]annCHEM WRUQE6077-38-06 11:54:0022[facility]annCHEM VDKRE5828-03-26 11:54:0038 [facility]annCHEM HGINZ9095-34-30 11:54:0097[facility]annCHEM PANEL 2020-02-26 11:54:002.9[facility]annCHE[facility] FVZXJ2987-38-47 11:54:009.0[facility]annCHE[facility] EMTMN3247-45-85 11:54:00* Test Item Value Reference Range Interpretation Comments B/C Ratio (test code = B/C Ratio) 12 1 6-25 [facility]annCHE[facility] RBSUL6498-96-07 11:54:002.7[facility]annCHEM PANEL 2020-02-26 11:54:00* Test Item Value Reference Range Interpretation Comments A/G Ratio (test code = A/G Ratio) 0.9 1 0.7-1.6 [facility]CHE[facility] NZEGX7044-73-99 11:54:0077[facility]annCHEM PANEL 2020-02-26 11:54:001.6[facility]annCHE[facility] FDKUU5253-66-38 11:54:002.4[facility]annCHE[facility] IQNYQ3253-48-59 20:21:001.5[facility]annCHE[facility] GBBPD1476-11-00 20:21:001.6[facility]annCHEM FRFKA2492-03-37 20:21:48553Uxqrguuw [facility]annCHE[facility] MAVXA5850-73-98 20:21:0012[facility]annCHEM RHHEI1976-34-31 20:21:000.84 [facility]annCHE[facility] OWCNM9860-23-17 20:21:00811Qebmfzvc HermannCHEM PANEL 2020-02-25 20:21:004.3[facility]annCHEM RLAKT4652-54-79 20:21:57895Jdjwoezr [facility]annCHEM JJULT0238-58-97 20:21:0024[facility]annCHEM GJPCH2016-77-66 20:21:008.3[facility]CHE[facility] ZWBSA8663-03-25 20:21:008.0[facility]annCHE[facility] QIJJO7259-77-68 20:21:0073[facility]CHE[facility] CTLTF0935-89-64 08:54:0076 [facility]CHE[facility] JAHUJ4787-06-11 08:54:0094[facility]annCHEM PANEL 2020-02-25 08:54:0013[facility]annCHEM GPRRI4172-37-45 08:54:000.81[facility]annCHEM STZOE0148-18-59 08:54:61801Gwakeobg HermannCHEM FALDD1032-01-54 08:54:004.1[facility]annCHEM YGEAM7450-98-80 08:54:79339Ydgdnjeo HermannCHEM QJNZR0418-24-48 08:54:0022[facility]annCHEM PSSHG6502-56-15 08:54:008.0 [facility]CHE[facility] VOAQD7558-12-37 08:54:007.1[facility]annCHEM PANEL 2020-02-25 08:54:0056.0[facility] OlbstmuDSXOPHKWES6344-79-18 08:54:0060.4[facility] EgsbfpiQFLKFIGJNT3334-00-62 08:54:0020.8[facility] YzteymxDNAJVIDVUC9199-18-12 08:54:0011.9[facility] EmfdwlkTZQOKDFKOU2960-07-43 08:54:005.7[facility] VYOIJVVAUR1574-08-71 08:54:001.2[facility] SaposonOIMZVKIHQR8510-82-04 08:54:002.7 [facility] VcrjdxnWTDBTZETJP8837-43-92 08:54:000.9[facility]annHEMATOLOGY 2020-02-25 08:54:000.5[facility] LzuzrspRSMQZWLSPK0093-18-91 08:54:000.3[facility] BrbyyaeSQJYGBPBCS4509-13-24 08:54:000.1[facility] WfndcemCUQSJZDPIN9601-58-64 08:54:004.4[facility] ErqqkytAEUEBLMMXF4039-83-31 08:54:002.50[facility] UMSLHPTAQF2900-13-28 08:54:008.1[facility] YtptvynQOIWPRULHL9123-64-46 08:54:00 24.3[facility] JwnvvdeNPIQXWONQN2557-60-79 08:54:0097.1[facility]annHEMATOLOGY 2020-02-25 08:54:00* Test Item Value Reference Range Interpretation Comments MCH (test code = MCH) 32.6 pg 27.0-31.0 [facility] YlmlwggGQZJHVDSXD1771-88-52 08:54:0033.6[facility]annHEMATOLOGY 2020-02-25 08:54:0015.7[facility] TgnuoyaSBQFAXQNVW0252-18-27 08:54:0061[facility] YxmpsytIDQJZTHYPR5969-79-63 08:54:009.8[facility] CyeipjrIKYCYLFPIX7979-46-70 10:01:0061.9[facility] YwvdgdsNPGFBZMSZS7848-04-76 10:01:0018.3[facility] BREVHEESXC3674-61-96 10:01:0013.4[facility] SpfiaepJGFKSRGSKR8083-29-84 10:01:00 5.7[facility] UziigliCTDSSRHPVU6254-32-89 10:01:000.7[facility]annHEMATOLOGY 2020-02-24 10:01:002.5[facility] QnxoomfVNESILZDVQ6438-65-14 10:01:000.7[facility] OocqpjsMOGEDFWFRH4919-94-44 10:01:000.5[facility] VbxdufzMZETJQHPRO7403-37-85 10:01:000.2[facility] YlpbkgmOEENBCDRIZ5644-47-41 10:01:004.0[facility] CIWOVTBCIS0210-97-47 10:01:002.36[facility] XlqwrvhGNXPWWGYNH1354-29-06 10:01:00 7.7[facility] QeuixzhNYBKWSQDCH3976-79-49 10:01:0023.0[facility]annHEMATOLOGY 2020-02-24 10:01:0097.5[facility] MvdvrafNFYHNTUWIJ8870-61-99 10:01:00* Test Item Value Reference Range Interpretation Comments MCH (test code = MCH) 32.8 pg 27.0-31.0 [facility] ZkwnmhuXEBVQIXGDP3814-72-45 10:01:0033.6[facility]annHEMATOLOGY 2020-02-24 10:01:0015.3[facility] XscedvfTDGYJJXNSK6113-70-45 10:01:0062[facility] SvmetpqRYTSEKWAZA9442-65-65 10:01:009.5[facility] CgcrnvhXVTMGFLLBM7677-00-43 09:37:004.1[facility] CxxnencUOJWMZAECZ5093-61-29 09:37:002.35[facility] [place] OJSYJAFRMS5781-66-57 09:37:007.8[facility] ZbefleiRIMXUZBNEA9445-97-24 09:37:00 22.9[facility] QkzothiCBNWPQJMQZ3827-67-57 09:37:0097.5[facility]annHEMATOLOGY 2020-02-23 09:37:00* Test Item Value Reference Range Interpretation Comments MCH (test code = MCH) 33.3 pg 27.0-31.0 [facility] TwyssahQRKMPXDZAQ4972-91-54 09:37:0034.1[facility]annHEMATOLOGY 2020-02-23 09:37:0015.4[facility] SvlozmpIGDURZAHWT3878-65-96 09:37:0059[facility] OteieduACIUYKILTZ3609-31-39 09:37:009.3[facility] EwwrfjqTHZIXPQDNZ5244-08-46 09:37:0060.9[facility] ZqaldqeATCSAQLIMS9431-04-04 09:37:0018.5[facility] ZTOOQLPDRU8623-09-92 09:37:0013.7[facility] VozrbprAEVBPDNSGP2568-38-74 09:37:00 6.4[facility] FtkzmndWDNGGUYVJN2956-06-63 09:37:000.5[facility] HermannHEMATOLOGY 2020-02-23 09:37:002.5[facility] NtpydwqRPZDVQRFFB7594-47-85 09:37:000.8[facility] HeisfqtMEEDBXUEMJ2489-12-50 09:37:000.6[facility] VmthzrfMHTKFPYTNO1520-46-69 09:37:000.3[facility] HermannCHEM QVTXE3915-52-19 14:09:0057.0[facility]annCHEM VFTRU4974-55-84 09:20:0062.0[facility]annCHEM BFPUL5391-21-35 09:20:005.6 [facility]annCHE[facility] EPHUF6044-65-84 09:20:002.8[facility]annCHEM PANEL 2020-02-21 09:20:0023[facility]annCHEM PHCPI4823-73-16 09:20:0031[facility]annCHEM KWCKV2407-74-83 09:20:89801Gbxgweax HermannCHEM OWKUD0281-66-79 09:20:001.9[facility] HermannCHEM HMRUN9448-25-06 09:20:00* Test Item Value Reference Range Interpretation Comments B/C Ratio (test code = B/C Ratio) 27 1 6-25 [facility]annCHE[facility] OKEYB2379-94-45 09:20:002.8[facility]annCHEM PANEL 2020-02-21 09:20:00* Test Item Value Reference Range Interpretation Comments A/G Ratio (test code = A/G Ratio) 1.0 1 0.7-1.6 [facility] UzcsyzlHKDIAWNTUC9168-19-20 11:17:00Normal (02/20/20 6:17 AM)[facility] JggchmhORVTSFRPFG7645-70-38 11:17:00Normal (02/20/20 6:17 AM)[facility] B[facility] SNOEMAD5645-52-75 11:49:00Product available 5(02/19/20 6:49 AM)[facility] XDQCFDX7894-72-90 11:49:00Product available 4(02/19/20 6:49 AM) [facility]CHE[facility] PCKMK8120-46-00 10:44:006.0[facility]annCHEM PANEL 2020-02-19 10:44:003.2[facility]annCHEM GIEAZ5694-12-85 10:44:0025[facility]annCHEM TUMMJ5159-54-10 10:44:0044[facility]annCHE[facility] QDBDN9926-18-80 10:44:0092[facility]annCHE[facility] WBGJP3363-70-86 10:44:002.0[facility]annCHEM SAUXW1657-98-48 10:44:000.8[facility]annCHE[facility] BPVPM1441-76-31 10:44:002.8 [facility]annCHE[facility] BZEXH8485-85-28 10:44:00* Test Item Value Reference Range Interpretation Comments A/G Ratio (test code = A/G Ratio) 1.1 1 0.7-1.6 [facility]CHE[facility] XUUKM0539-61-67 10:44:001.2[facility]annCHEM PANEL 2020-02-19 10:44:000.58[facility] BhupisbMAFNXFAMZP3286-13-35 10:44:00* Test Item Value Reference Range Interpretation Comments PT (test code = PT) 25.2 s 12.0-14.7 [facility] LunbgphPJDKDEUVMA3172-56-29 10:44:00* Test Item Value Reference Range Interpretation Comments INR (test code = INR) 2.24 1 0.85-1.17 [facility] XspndbhWNVBODXZRA1978-02-89 10:44:00* Test Item Value Reference Range Interpretation Comments PTT (test code = PTT) 46.4 s 22.9-35.8 [facility] HermannPARATHYROID MIRGPSO8085-93-94 10:44:001.12[facility] PARATHYROID KNQIXRT3416-80-82 10:44:001.11[facility]annCHEM FXLHV5879-57-85 14:49:000.9[facility]annCHEM TKHXQ0561-07-46 14:49:001.5[facility] MLPSGIALWD3670-02-46 14:49:00* Test Item Value Reference Range Interpretation Comments PT (test code = PT) 25.1 s 12.0-14.7 [facility] JvzoxzlTBXOFLSGQW5985-90-61 14:49:00* Test Item Value Reference Range Interpretation Comments INR (test code = INR) 2.23 1 0.85-1.17 [facility]annCHE[facility] HWIME3641-57-30 11:24:001.0[facility]annCHEM PANEL 2020-02-18 11:24:001.4[facility] NzbmfupTSYTFKBERX6944-72-92 11:24:000.1[facility]annCHEM RTSJP5772-48-60 02:19:000.46[facility] KmkovtlCSVVQLSITQOMG6559-06-24 02:19:0025.1[facility] LjpcjbeOWYEDZSCRY3996-10-89 09:39:000.1[facility]annCHEM DECLJ2875-73-01 03:03:00* Test Item Value Reference Range Interpretation Comments B/C Ratio (test code = B/C Ratio) 19 1 6-25 [facility]annURINE EVDU5032-48-76 19:51:0010[facility]ann[facility] CHEM 2020-02-16 19:51:05178.00[facility]annUR[facility] FTTJ6247-44-11 19:51:0022.0 [facility] RDNY3239-84-77 19:51:00* Test Item Value Reference Range Interpretation Comments U Prot/Creat (test code = U Prot/Creat) 0.08 1 [facility] XrrfbrvBOEIHBHNKU5370-01-98 10:26:00Not Detected (02/16/20 5:26 AM) [facility] AND HZPJI4379-00-58 10:24:00Yellow *NA*(02/16/20 5:24 AM) [facility] PNIQH3707-46-94 10:24:00Marked *ABN*(02/16/20 5:24 AM) [facility] IPGOL9628-89-23 10:24:00* Test Item Value Reference Range Interpretation Comments UA Spec Grav (test code = UA Spec Grav) 1.014 1 [facility] GPLYI0316-99-57 10:24:00* Test Item Value Reference Range Interpretation Comments UA pH (test code = UA pH) 5.0 1 5.0-8.0 [facility] DEACY7909-29-68 10:24:00Negative *NA*(02/16/20 5:24 AM) [facility] GLBSZ2730-97-74 10:24:00Negative (02/16/20 5:24 AM) [facility] JKFXS6372-41-62 10:24:00Negative (02/16/20 5:24 AM) [facility] XTNYS9043-42-77 10:24:00Negative (02/16/20 5:24 AM) [facility] FKSPH3617-20-64 10:24:001[facility] AND TJJTS0309-88-79 10:24:00<1[facility] DJRN7310-64-54 10:24:0018 [facility] BLQI1805-78-04 10:24:0027.7[facility] CHEM 2020-02-16 10:24:0020[facility] XehsyqtOPDEZXKFDW2032-69-22 08:16:00See Note 7(02/16/20 3:16 AM)[facility] AND UOQYJ5531-09-58 08:16:00Positive *ABN*(02/16/20 3:16 AM)[facility]BL[facility] B[facility] EODKSLU6627-20-29 05:00:00 Negative (02/16/20 12:00 AM)[facility]annCARDIAC QWOIYGZ1193-61-43 05:00:0059 [facility]annCARDIAC OEIRSMI7935-98-77 05:00:00<0.02[facility] HermannCARDIAC HNARFEM4361-82-30 05:00:94974Beznzhgk RaxwjelJXJKWAVGPN3702-97-33 05:00:00* Test Item Value Reference Range Interpretation Comments PT (test code = PT) 20.5 s 12.0-14.7 [facility] WhyitloGTYSBZCYCY9177-54-74 05:00:00* Test Item Value Reference Range Interpretation Comments INR (test code = INR) 1.73 1 0.85-1.17 [facility]FXWE8307-[facility]-20 05:00:00* Test Item Value Reference Range Interpretation Comments PTT (test code = PTT) 34.5 s 22.9-35.8 [facility] ABD PELVIS W/NEUR3229-83-76 14:36:00 Name: ADITYA STRAUSSJERMAINE LLOYDRIA [facility] : 1955 Age/S: 64 / F [address] [facility] Unit [facility]: [id number] Loc: GERALD Simms [address] Phys: Perico Duenas MD Acct: [id number] Dis Date: Status: REG CLI PHONE #: [phone] Exam Date: 10/05/2019 1400 FAX #: [phone] Reason: MAYO LIVER CIRRHOSIS EXAMS: CPT CODE: [id number] CT ABD PELVIS W/CONT 05231 REASON FOR EXAM: MAYO LIVER CIRRHOSIS EXAM ORDER DATE: 10/05/2019 12:51 PM Endy mitchell M.D.: Perico Duenas MD PROCEDURE: - CT ABD PELVIS W/CONT con trast contrast-enhanced axial CT images were acquired through the abdomen/ pelvis at 5 mm intervals. Sagittal and coronal reformatted images were ge adSage. Automated exposure control was utilized for this reduction. Phases of contrast: venous and delayed COMPARISON: None FINDINGS: Visualized thorax: Normal H epatobiliary system: Nodular hepatic contour. Pancreas: Normal Spleen: Normal Adrenal glands: Normal Gen itourinary system: Normal Gastrointestinal tract and appendix: The re is diverticulosis of the sigmoid colon without diverticulitis. Remainde r of the large bowel is within normal limits. Small bowel and stomach are grossly unremarkable. Impressions of oral contrast limits assessment for t he presence of gastroesophageal varices. Abdominal vascular structures: Recanalized umbilical vein. Marked dilation of the splenic vei n. Additionally there appears to be a splenorenal shunt. Per itoneum and retroperitoneum: No free fluid or free air. No omental or mes enteric masses. No abnormal lymph nodes. Musculoskeletal structur es and abdominal wall: There are degenerative changes throughout the spine . There are confluent osteophytes along the posterior aspects of the T12-L 1 and L1-L2 vertebral bodies causing PAGE 1 Signed Re port (CONTINUED) Name: DIANE MCKNIGHT [facility] : 1955 Age/S: 64 / F [address] Unit #: [id number] Loc: GERALD Simms [address] Phys: Perico Duenas MD Acct: [id number] Dis Date: Status: REG CLI PHONE #: [phone] Exam Date: 10/05/2019 1400 FAX #: [phone] Reason: MAYO LIVER CIRRHOSIS EXAMS: CP T CODE: [id number] CT ABD PELVIS W/CONT 61393 <Continued> narrowing of the central canal. There is also marked facet hypertrophy at L2-L3 which causes severe left-sided foraminal narrowing and moderate central canal narrowing. IMPRESSION: Cirrhotic liver with portal venous hypertension as evidenced by splenorenal shunt and recanalized umbilical vein. Colonic diverticulosis without diverticulitis. Location: [facility] at 1436 Reported and signed by: Amando Greenberg MD CC: Perico Duenas MD; Pascual Omer MD Technologist:Fang Tavares RT(R),CT CTDI: DLP: Trnscb Date/Time: 10/05/2019 (1436) [email or web address] Orig Print D/T: S: 10/05/2019 (4732) PAGE 2 Signed Report CREATININE W ESTIMATED [id number] 12:33:00* Test Item Value Reference Range Interpretation Comments BEDSIDE CREATININE (test code = CREATBED) mg/dL 0.7-1.3 L GLOMERULAR FILTRATION RATE POC (test code = GFRBED) 104 >6 0 H CREATININE W ESTIMATED [id number] 12:33:00* Test Item Value Reference Range Interpretation Comments BEDSIDE CREATININE (test code = CREATBED) 0.58 mg/dL 0.7-1.3 L GLOMERULAR FILTRATION RATE POC (test code = GFRBED) > 60 >6 0 H Previously reported result: 104 Edited by: CODY on 10/05/19:447057 1233: GFRBED previously reported as: 104 H [id number] 02:50:00* Test Item Value Reference Range Interpretation Comments AMMONIA (test code = AMM) 20 umol/L 0-35 - DUP VEIN [id number] 02:41:00 [facility] 1955 Age/S: 64 / F [address] [place] [address] Unit #: [id number] Loc: GERALD Maldonado [address] Phys: Stanley Acosta MD Acct: [id number] Dis Date: Status: REG ER PHONE #: [phone] Exam Date: 08/15/2019157 FAX #: [phone] Reason: PAIN AND SWELLING EXAMS: CPT CODE: [id number] DUP VEIN TYLER 16464 EXAM: DUP VEIN TYLER: 08/16/2018, 0101 hours History: Pain and swelling in the leg/feet. Evaluate for DVT. COMPARISON: None. TECHNIQUE: Sonographic evaluation of the bilateral lower extremity veins was performed using high resolution B-mode imaging, along with pulse and color Doppler imaging. FINDINGS: Right lower extremity: The common femoral vein, superficial femoral vein, popliteal vein and visualized posterior tibial/calf veins are patent. There is no echogenic debris to suggest deep venous thrombosis. The saphenofemoral junction is unremarkable. Left lower extremity: The common femoral vein, superficial femoral vein, popliteal vein and visualized posterior tibial/calf veins are patent. There is no echogenic d ebris to suggest deep venous thrombosis. The saphenofemoral junct ion is unremarkable. Bilateral ankle/calf edema. IMPRESSION: 1. No deep venous thrombosis of bilateral lower extre mities. REFERENCE: Deep veins include: comm on femoral vein, superficial femoral vein (also can be referred to as "f emoral vein"), popliteal vein, posterior tibial vein S uperficial veins include: greater and lesser saphenous veins PAGE 1 Signed Report (CONTINUED) Name: DIANE SIMEON : 1955 Age/S: 64 / F [address] [place] [address] Unit #: [id number] Loc: GERALD Maldonado [address] Phys: Stanley Acosta MD Acct: [id number] Di s Date: Status: REG ER PHONE #: [phone] Exam Date: 08/15/2019157 FAX #: Reason: PAIN AND SWELLING EXAMS: CPT CODE: [id number] DUP VEIN TYLER [address]5485 <Continued> SL: JSYED-H at 0241 Reported and signed by: Jonathan Molina M.D. CC: Stanley Acosta MD Technologist: Alla Blas RDMS(Carolyn) Trnscb Date/Time: 08/16/2019 (024) [email or web address] Orig Print D/T: S: 08/16/2019 (0244) Probe: PAGE 2 Signed Report CBC W/AUTO [id number] 00:47:00* Test Item Value Reference Range Interpretation Comments WHITE BLOOD CELL (test code = WBC) 3.54 x10 3/uL 4.5-11.0 L RED BLOOD CELL (test code = RBC) 2.68 x10 6/uL 3.54-5.02 L HEMOGLOBIN (test code = HGB) 8.8 g/dL 11.0-15.0 L HEMATOCRIT (test code = HCT) 26.8 % 33.0-45.0 L MEAN CELL VOLUME (test code = MCV) 100.0 fL 81.0-99.0 H MEAN CELL HGB (test code = MCH) 32.8 pg 27.0-33.0 N MEAN CELL HGB CONCETRATION (test code = MCHC) 32.8 g/dL 33.0-37. 0 L RED CELL DISTRIBUTION WIDTH CV (test code = RDW) 14.8 % 11.5- 14.5 H RED CELL DISTRIBUTION WIDTH SD (test code = RDW-SD) 54.3 fL 37 .0-54.0 H PLATELET COUNT (test code = PLT) 52 x10 3/uL 150-400 L MEAN PLATELET VOLUME (test code = MPV) 12.1 fL 7.0-9.0 H NEUTROPHIL % (test code = NT%) 56.8 % 56.0-77.0 N IMMATURE GRANULOCYTE % (test code = IG%) 0.3 % 0.0-2.0 N LYMPHOCYTE % (test code = LY%) 26.0 % 14.0-32.0 N MONOCYTE % (test code = MO%) 9.9 % 4.8-9.0 H EOSINOPHIL % (test code = EO%) 6.2 % 0.3-3.7 H BASOPHIL % (test code = BA%) 0.8 % 0.0-2.0 N NUCLEATED RBC % (test code = NRBC%) 0.0 % 0-0 N NEUTROPHIL # (test code = NT#) 2.01 x10 3/uL 2.0-7.6 N IMMATURE GRANULOCYTE # (test code = IG#) 0.01 x10 3/uL 0.00-0.03 N LYMPHOCYTE # (test code = LY#) 0.92 x10 3/uL 1.0-3.8 L MONOCYTE # (test code = MO#) 0.35 x10 3/uL 0.1-0.8 N EOSINOPHIL # (test code = EO#) 0.22 x10 3/uL 0.0-0.2 H BASOPHIL # (test code = BA#) 0.03 x10 3/uL 0.0-0.2 N NUCLEATED RBC # (test code = NRBC#) 0.00 x10 3/uL 0.0-0.1 N MANUAL DIFF REQUIRED (test code = MDIFF) NO PLT [id number] 00:47:00* Test Item Value Reference Range Interpretation Comments PLATELET ESTIMATE (test code = PLTEST) 84-105 THOUSAND ADEQUATE PLATELET MORPHOLOGY (test code = PLTMORPH) LARGE PLATELETS URINALYSIS [id number] 00:38:00* Test Item Value Reference Range Interpretation Comments UA COLOR (test code = COLU) SELVIN YEL/STRAW A UA APPEARANCE (test code = APPU) SL CLOUDY CLEAR UA GLUCOSE DIPSTICK (test code = DGLUU) NEGATIVE NEGATIVE UA BILIRUBIN DIPSTICK (test code = BILU) NEGATIVE NEGATIVE UA KETONE DIPSTICK (test code = KETU) NEGATIVE NEGATIVE UA SPECIFIC GRAVITY (test code = SGU) 1.024 1.005-1.030 N UA BLOOD DIPSTICK (test code = ANTONINO) NEGATIVE NEGATIVE UA PH DIPSTICK (test code = VICKI) 5.0 5.0-7.0 N UA PROTEIN DIPSTICK (test code = PROU) NEGATIVE NEGATIVE UA UROBILINIOGEN DIPSTICK (test code = URO) 0.2 mg/dL 0.2-1.0 UA NITRITE DIPSTICK (test code = TRAV) NEGATIVE NEGATIVE UA LEUKOCYTE ESTERASE DIPSTICK (test code = LEUU) NEGATIVE NEGA TIVE UA RBC (test code = RBCU) 4-10 RBC/HPF 0-3 UA WBC NO REFLEX (test code = WBCUCL) 4-9 WBC/HPF 0-3 A UA BACTERIA (test code = BACU) TRACE /HPF NONE SEEN UA SQUAMOUS CELLS (test code = SQU) 6-10 /HPF NONE SEEN A UA HYALINE CAST (test code = HYALU) 6-10 /LPF NONE SEEN UA MUCUS (test code = MUCU) 2+ /LPF NONE SEEN A COMPREHENSIVE METABOLIC [id number] 00:35:00* Test Item Value Reference Range Interpretation Comments SODIUM (test code = NA) 143 mEq/L 134-147 N POTASSIUM (test code = K) 3.8 mEq/L 3.4-5.0 N CHLORIDE (test code = CL) 113 mEq/L 100-108 H CARBON DIOXIDE (test code = CO2) 26 mEq/L 21-33 N ANION GAP (test code = GAP) 8 0-20 N GLUCOSE (test code = GLU) 88 mg/dL 70-110 N BLOOD UREA NITROGEN (test code = BUN) 11 mg/dL 7-18 N GLOMERULAR FILTRATION RATE (test code = GFR) 84.0 80-90 N Units of measure = ml/min/1.73 m2 CREATININE (test code = CREAT) 0.7 mg/dL 0.6-1.3 N TOTAL PROTEIN (test code = PROT) 5.9 g/dL 6.4-8.2 L ALBUMIN (test code = ALB) 2.20 g/dL 3.4-5.0 L CALCIUM (test code = CA) 7.9 mg/dL 8.0-10.5 L BILIRUBIN TOTAL (test code = BILT) 1.3 MG/DL <1.5 N SGOT/AST (test code = AST) 50 IUnit/L 15-37 H SGPT/ALT (test code = ALT) 34 IUnit/L 15-65 N ALKALINE PHOSPHATASE TOTAL (test code = ALKP) 177 IUnit/L 20-125 H [id number] 00:35:00* Test Item Value Reference Range Interpretation Comments PHOSPHOROUS (test code = PHOS) 2.5 MG/DL 2.5-4.9 N [id number] 00:35:00* Test Item Value Reference Range Interpretation Comments MAGNESIUM (test code = MAG) 1.70 mg/dL 1.8-2.4 L [id number] 00:35:00* Test Item Value Reference Range Interpretation Comments TROPONIN-I (test code = TROPI) < 0.015 ng/mL 0.000-0.045 N Negative: <= 0.045 Positive: >= 0.046 Correlation with serial results, other cardiac markers andclinical findings is necessary to determine the clinicalsignificance of this result. Results using different methodologies should not be comparedto one another as quantitative results may vary by method. PROTHROMBIN [id number] 00:27:00* Test Item Value Reference Range Interpretation Comments PROTHROMBIN TIME PATIENT (test code = PTP) 18.0 SECONDS 9.3-12.9 H INTERNATIONAL NORMAL RATIO (test code = INR) 1.6 0.8-1.2 H TARGET INR BY INDICATION Indication INR1. Prophylaxis of venous thrombosis 2.0 - 3.0 (orthopedic surgery), Prophylaxis of venous thrombosis (other than high-risk surgery), Treatment of Deep Vein Thrombosis/Pulmonary Embolism, Prevention of systemic embolism - Tissue heart valves, Acute Myocardial Infarction (to prevent systemic embolism), Valvular heart disease, Atrial Fibrillation, Bileaflet mechanical valve in aortic position.2. Mechanical prosthetic valves (high risk), 2.5 - 3.5 Presence of Lupus Anticoagulant or Antiphospholipid Antibodies, Prevention of systemic embolism - Acute Myocardial Infarction (to prevent recurrent infarct). THROMBOPLASTIN TIME [id number] 00:27:00* Test Item Value Reference Range Interpretation Comments THROMBOPLASTIN TIME PARTIAL (test code = PTT) 43.6 Seconds 25.0-39. 5 H Therapeutic Range: 50.4 - 88.3 Seconds Effective 11/27/2018 CBC W/AUTO [id number] 00:19:00* Test Item Value Reference Range Interpretation Comments WHITE BLOOD CELL (test code = WBC) 3.54 x10 3/uL 4.5-11.0 L RED BLOOD CELL (test code = RBC) 2.68 x10 6/uL 3.54-5.02 L HEMOGLOBIN (test code = HGB) 8.8 g/dL 11.0-15.0 L HEMATOCRIT (test code = HCT) 26.8 % 33.0-45.0 L MEAN CELL VOLUME (test code = MCV) 100.0 fL 81.0-99.0 H MEAN CELL HGB (test code = MCH) 32.8 pg 27.0-33.0 N MEAN CELL HGB CONCETRATION (test code = MCHC) 32.8 g/dL 33.0-37. 0 L RED CELL DISTRIBUTION WIDTH CV (test code = RDW) 14.8 % 11.5- 14.5 H RED CELL DISTRIBUTION WIDTH SD (test code = RDW-SD) 54.3 fL 37 .0-54.0 H PLATELET COUNT (test code = PLT) 52 x10 3/uL 150-400 L MEAN PLATELET VOLUME (test code = MPV) 12.1 fL 7.0-9.0 H NEUTROPHIL % (test code = NT%) 56.8 % 56.0-77.0 N IMMATURE GRANULOCYTE % (test code = IG%) 0.3 % 0.0-2.0 N LYMPHOCYTE % (test code = LY%) 26.0 % 14.0-32.0 N MONOCYTE % (test code = MO%) 9.9 % 4.8-9.0 H EOSINOPHIL % (test code = EO%) 6.2 % 0.3-3.7 H BASOPHIL % (test code = BA%) 0.8 % 0.0-2.0 N NUCLEATED RBC % (test code = NRBC%) 0.0 % 0-0 N NEUTROPHIL # (test code = NT#) 2.01 x10 3/uL 2.0-7.6 N IMMATURE GRANULOCYTE # (test code = IG#) 0.01 x10 3/uL 0.00-0.03 N LYMPHOCYTE # (test code = LY#) 0.92 x10 3/uL 1.0-3.8 L MONOCYTE # (test code = MO#) 0.35 x10 3/uL 0.1-0.8 N EOSINOPHIL # (test code = EO#) 0.22 x10 3/uL 0.0-0.2 H BASOPHIL # (test code = BA#) 0.03 x10 3/uL 0.0-0.2 N NUCLEATED RBC # (test code = NRBC#) 0.00 x10 3/uL 0.0-0.1 N MANUAL DIFF REQUIRED (test code = MDIFF) NO PLT [id number] 00:19:00* Test Item Value Reference Range Interpretation Comments PLATELET ESTIMATE (test code = PLTEST) THOUSAND ADEQUATE CBC W/AUTO [id number] 00:16:00* Test Item Value Reference Range Interpretation Comments WHITE BLOOD CELL (test code = WBC) 3.54 x10 3/uL 4.5-11.0 L RED BLOOD CELL (test code = RBC) 2.68 x10 6/uL 3.54-5.02 L HEMOGLOBIN (test code = HGB) 8.8 g/dL 11.0-15.0 L HEMATOCRIT (test code = HCT) 26.8 % 33.0-45.0 L MEAN CELL VOLUME (test code = MCV) 100.0 fL 81.0-99.0 H MEAN CELL HGB (test code = MCH) 32.8 pg 27.0-33.0 N MEAN CELL HGB CONCETRATION (test code = MCHC) 32.8 g/dL 33.0-37. 0 L RED CELL DISTRIBUTION WIDTH CV (test code = RDW) 14.8 % 11.5- 14.5 H RED CELL DISTRIBUTION WIDTH SD (test code = RDW-SD) 54.3 fL 37 .0-54.0 H PLATELET COUNT (test code = PLT) 52 x10 3/uL 150-400 L MEAN PLATELET VOLUME (test code = MPV) 12.1 fL 7.0-9.0 H NEUTROPHIL % (test code = NT%) 56.8 % 56.0-77.0 N IMMATURE GRANULOCYTE % (test code = IG%) 0.3 % 0.0-2.0 N LYMPHOCYTE % (test code = LY%) 26.0 % 14.0-32.0 N MONOCYTE % (test code = MO%) 9.9 % 4.8-9.0 H EOSINOPHIL % (test code = EO%) 6.2 % 0.3-3.7 H BASOPHIL % (test code = BA%) 0.8 % 0.0-2.0 N NUCLEATED RBC % (test code = NRBC%) 0.0 % 0-0 N NEUTROPHIL # (test code = NT#) 2.01 x10 3/uL 2.0-7.6 N IMMATURE GRANULOCYTE # (test code = IG#) 0.01 x10 3/uL 0.00-0.03 N LYMPHOCYTE # (test code = LY#) 0.92 x10 3/uL 1.0-3.8 L MONOCYTE # (test code = MO#) 0.35 x10 3/uL 0.1-0.8 N EOSINOPHIL # (test code = EO#) 0.22 x10 3/uL 0.0-0.2 H BASOPHIL # (test code = BA#) 0.03 x10 3/uL 0.0-0.2 N NUCLEATED RBC # (test code = NRBC#) 0.00 x10 3/uL 0.0-0.1 N MANUAL DIFF REQUIRED (test code = MDIFF) NO PLT [id number] 00:16:00* Test Item Value Reference Range Interpretation Comments PLATELET ESTIMATE (test code = PLTEST) THOUSAND ADEQUATE CBC W/AUTO [id number] 00:15:00* Test Item Value Reference Range Interpretation Comments WHITE BLOOD CELL (test code = WBC) 3.54 x10 3/uL 4.5-11.0 L RED BLOOD CELL (test code = RBC) 2.68 x10 6/uL 3.54-5.02 L HEMOGLOBIN (test code = HGB) 8.8 g/dL 11.0-15.0 L HEMATOCRIT (test code = HCT) 26.8 % 33.0-45.0 L MEAN CELL VOLUME (test code = MCV) 100.0 fL 81.0-99.0 H MEAN CELL HGB (test code = MCH) 32.8 pg 27.0-33.0 N MEAN CELL HGB CONCETRATION (test code = MCHC) 32.8 g/dL 33.0-37. 0 L RED CELL DISTRIBUTION WIDTH CV (test code = RDW) 14.8 % 11.5- 14.5 H RED CELL DISTRIBUTION WIDTH SD (test code = RDW-SD) 54.3 fL 37 .0-54.0 H PLATELET COUNT (test code = PLT) 52 x10 3/uL 150-400 L MEAN PLATELET VOLUME (test code = MPV) 12.1 fL 7.0-9.0 H NEUTROPHIL % (test code = NT%) 56.8 % 56.0-77.0 N IMMATURE GRANULOCYTE % (test code = IG%) 0.3 % 0.0-2.0 N LYMPHOCYTE % (test code = LY%) 26.0 % 14.0-32.0 N MONOCYTE % (test code = MO%) 9.9 % 4.8-9.0 H EOSINOPHIL % (test code = EO%) 6.2 % 0.3-3.7 H BASOPHIL % (test code = BA%) 0.8 % 0.0-2.0 N NUCLEATED RBC % (test code = NRBC%) 0.0 % 0-0 N NEUTROPHIL # (test code = NT#) 2.01 x10 3/uL 2.0-7.6 N IMMATURE GRANULOCYTE # (test code = IG#) 0.01 x10 3/uL 0.00-0.03 N LYMPHOCYTE # (test code = LY#) 0.92 x10 3/uL 1.0-3.8 L MONOCYTE # (test code = MO#) 0.35 x10 3/uL 0.1-0.8 N EOSINOPHIL # (test code = EO#) 0.22 x10 3/uL 0.0-0.2 H BASOPHIL # (test code = BA#) 0.03 x10 3/uL 0.0-0.2 N NUCLEATED RBC # (test code = NRBC#) 0.00 x10 3/uL 0.0-0.1 N MANUAL DIFF REQUIRED (test code = MDIFF) NO - XR FOOT 3 + V [id number] 23:36:00 FAX: Stanley Prater MD [phone] [place]: St: REG Name: DIANE CHEN [facility] : [birth year] Age/S: 64/F [address] [place] [address] Unit #: [id number] Loc: [place] [address] Phys: Stanley Acosta MD Acct: [id number] Dis Date: Status: REG ER PHONE #: [phone] Exam Date: 08/15/20190 FAX #: [phone] Reason: PAIN AND SWELLING EXAMS: CPT CODE: [id number] XR FOOT 3 + [place] [id number] PROCEDURE: Right foot serie s radiographs, 3 views and 3 images. Left foot series radiographs, 3 views and 3 images. INDICATION: PAIN AND SWELLING. Swelling in the leg s, feet. Symptoms are worsening. Toes are changing colors. COMPARISON: None. RIGHT FOOT: Diffuse decreased bone density. M ild to moderate degenerative changes. Diffuse moderate to severe soft tis tony edema. No focal soft tissue abnormality. Calcaneus enthesophyte. La rge enthesophyte along the lateral metatarsal-phalangeal articulation of the 1st digit. LEFT FOOT: Diffusely decreased bone density. Mild to moderate degenerative changes. Calcaneus enthesophyte. Diffuse moderate to severe soft tissue edema. No focal soft tissue abnormality identified. IMPRESSION: 1. Decreased bone density a nd chronic degenerative changes bilaterally, worse on the right side. 2. Diffuse bilateral moderate to severe soft tissue edema. SL: DERRICK at [id number] Reported and signed by: Gary Dickinson M.D. CC: Stanley Acosta MD [facility] gist: RT Loni(R) Trnscrd Date/Time/B y: 08/15/2019 (2335) : By: [email or web address] Orig Print D/T: S: 08/15/2019 (72 22) PAGE 1 Signed Report BASIC METABOLIC [id number] 07:52:00* Test Item Value Reference Range Interpretation Comments SODIUM (test code = NA) 137 mEq/L 134-147 N POTASSIUM (test code = K) 3.9 mEq/L 3.4-5.0 N CHLORIDE (test code = CL) 109 mEq/L 100-108 H CARBON DIOXIDE (test code = CO2) 23 mEq/L 21-33 N ANION GAP (test code = GAP) 9 0-20 N GLUCOSE (test code = GLU) 83 mg/dL 70-110 N BLOOD UREA NITROGEN (test code = BUN) 13 mg/dL 7-18 N GLOMERULAR FILTRATION RATE (test code = GFR) 72.0 80-90 L Units of measure = ml/min/1.73 m2 CREATININE (test code = CREAT) 0.8 mg/dL 0.6-1.3 CALCIUM (test code = CA) 7.5 mg/dL 8.0-10.5 L CBC W/AUTO [id number] 07:37:00* Test Item Value Reference Range Interpretation Comments WHITE BLOOD CELL (test code = WBC) 3.77 x10 3/uL 4.5-11.0 L RED BLOOD CELL (test code = RBC) 2.54 x10 6/uL 3.54-5.02 L HEMOGLOBIN (test code = HGB) 8.3 g/dL 11.0-15.0 L HEMATOCRIT (test code = HCT) 25.1 % 33.0-45.0 L MEAN CELL VOLUME (test code = MCV) 98.8 fL 81.0-99.0 N MEAN CELL HGB (test code = MCH) 32.7 pg 27.0-33.0 N MEAN CELL HGB CONCETRATION (test code = MCHC) 33.1 g/dL 33.0-37. 0 N RED CELL DISTRIBUTION WIDTH CV (test code = RDW) 14.1 % 11.5- 14.5 N RED CELL DISTRIBUTION WIDTH SD (test code = RDW-SD) 50.8 fL 37 .0-54.0 N PLATELET COUNT (test code = PLT) 46 x10 3/uL 150-400 L MEAN PLATELET VOLUME (test code = MPV) 12.7 fL 7.0-9.0 H NEUTROPHIL % (test code = NT%) 55.4 % 56.0-77.0 L IMMATURE GRANULOCYTE % (test code = IG%) 0.3 % 0.0-2.0 N LYMPHOCYTE % (test code = LY%) 23.3 % 14.0-32.0 N MONOCYTE % (test code = MO%) 13.0 % 4.8-9.0 H EOSINOPHIL % (test code = EO%) 7.2 % 0.3-3.7 H BASOPHIL % (test code = BA%) 0.8 % 0.0-2.0 N NUCLEATED RBC % (test code = NRBC%) 0.0 % 0-0 N NEUTROPHIL # (test code = NT#) 2.09 x10 3/uL 2.0-7.6 N IMMATURE GRANULOCYTE # (test code = IG#) 0.01 x10 3/uL 0.00-0.03 N LYMPHOCYTE # (test code = LY#) 0.88 x10 3/uL 1.0-3.8 L MONOCYTE # (test code = MO#) 0.49 x10 3/uL 0.1-0.8 N EOSINOPHIL # (test code = EO#) 0.27 x10 3/uL 0.0-0.2 H BASOPHIL # (test code = BA#) 0.03 x10 3/uL 0.0-0.2 N NUCLEATED RBC # (test code = NRBC#) 0.00 x10 3/uL 0.0-0.1 N MANUAL DIFF REQUIRED (test code = MDIFF) NO [id number] 05:19:00* Test Item Value Reference Range Interpretation Comments AMMONIA (test code = AMM) 57 umol/L 0-35 H BASIC METABOLIC [id number] 07:43:00* Test Item Value Reference Range Interpretation Comments SODIUM (test code = NA) 140 mEq/L 134-147 N POTASSIUM (test code = K) 4.0 mEq/L 3.4-5.0 N CHLORIDE (test code = CL) 110 mEq/L 100-108 H CARBON DIOXIDE (test code = CO2) 24 mEq/L 21-33 N ANION GAP (test code = GAP) 10 0-20 N GLUCOSE (test code = GLU) 80 mg/dL 70-110 N BLOOD UREA NITROGEN (test code = BUN) 12 mg/dL 7-18 GLOMERULAR FILTRATION RATE (test code = GFR) 100.3 80-90 H Units of measure = ml/min/1.73 m2 CREATININE (test code = CREAT) 0.6 mg/dL 0.6-1.3 N CALCIUM (test code = CA) 7.9 mg/dL 8.0-10.5 L [id number] 07:43:00* Test Item Value Reference Range Interpretation Comments MAGNESIUM (test code = MAG) 1.60 mg/dL 1.8-2.4 L CBC W/AUTO [id number] 07:16:00* Test Item Value Reference Range Interpretation Comments WHITE BLOOD CELL (test code = WBC) 3.98 x10 3/uL 4.5-11.0 L RED BLOOD CELL (test code = RBC) 2.64 x10 6/uL 3.54-5.02 L HEMOGLOBIN (test code = HGB) 8.7 g/dL 11.0-15.0 L HEMATOCRIT (test code = HCT) 25.9 % 33.0-45.0 L MEAN CELL VOLUME (test code = MCV) 98.1 fL 81.0-99.0 N MEAN CELL HGB (test code = MCH) 33.0 pg 27.0-33.0 N MEAN CELL HGB CONCETRATION (test code = MCHC) 33.6 g/dL 33.0-37. 0 N RED CELL DISTRIBUTION WIDTH CV (test code = RDW) 13.7 % 11.5- 14.5 N RED CELL DISTRIBUTION WIDTH SD (test code = RDW-SD) 49.1 fL 37 .0-54.0 N PLATELET COUNT (test code = PLT) 42 x10 3/uL 150-400 L MEAN PLATELET VOLUME (test code = MPV) 12.6 fL 7.0-9.0 H NEUTROPHIL % (test code = NT%) 55.2 % 56.0-77.0 L IMMATURE GRANULOCYTE % (test code = IG%) 0.3 % 0.0-2.0 N LYMPHOCYTE % (test code = LY%) 26.9 % 14.0-32.0 N MONOCYTE % (test code = MO%) 10.1 % 4.8-9.0 H EOSINOPHIL % (test code = EO%) 7.0 % 0.3-3.7 H BASOPHIL % (test code = BA%) 0.5 % 0.0-2.0 N NUCLEATED RBC % (test code = NRBC%) 0.0 % 0-0 N NEUTROPHIL # (test code = NT#) 2.20 x10 3/uL 2.0-7.6 N IMMATURE GRANULOCYTE # (test code = IG#) 0.01 x10 3/uL 0.00-0.03 N LYMPHOCYTE # (test code = LY#) 1.07 x10 3/uL 1.0-3.8 N MONOCYTE # (test code = MO#) 0.40 x10 3/uL 0.1-0.8 N EOSINOPHIL # (test code = EO#) 0.28 x10 3/uL 0.0-0.2 H BASOPHIL # (test code = BA#) 0.02 x10 3/uL 0.0-0.2 N NUCLEATED RBC # (test code = NRBC#) 0.00 x10 3/uL 0.0-0.1 N MANUAL DIFF REQUIRED (test code = MDIFF) NO ALPHA FETOPROTEIN TUMOR [id number] 04:07:00* Test Item Value Reference Range Interpretation Comments ALPHA FETOPROTEIN TUMOR MARKER (test code = AFPTM) 4.7 ng/mL 0.0 -8.3 [facility] Electrochemiluminescence Immunoassay(ECLIA)Values obtained with different assay methods or kits cannotbe used interchangeably. Results cannot be interpreted asabsolute evidence of the presence or absence of malignantdisease.This test is not interpretable in females.Performed At: [facility] [id number] [place], [place] [address]Weeqv Edmund Conway MD Ph:[phone] NOTIFIED [facility] METABOLIC [id number] 06:04:00* Test Item Value Reference Range Interpretation Comments SODIUM (test code = NA) 140 mEq/L 134-147 N POTASSIUM (test code = K) 3.7 mEq/L 3.4-5.0 N CHLORIDE (test code = CL) 112 mEq/L 100-108 H CARBON DIOXIDE (test code = CO2) 23 mEq/L 21-33 N ANION GAP (test code = GAP) 9 0-20 N GLUCOSE (test code = GLU) 82 mg/dL 70-110 N BLOOD UREA NITROGEN (test code = BUN) 17 mg/dL 7-18 N GLOMERULAR FILTRATION RATE (test code = GFR) 100.3 80-90 H Units of measure = ml/min/1.73 m2 CREATININE (test code = CREAT) 0.6 mg/dL 0.6-1.3 N CALCIUM (test code = CA) 7.5 mg/dL 8.0-10.5 L [id number] 06:04:00* Test Item Value Reference Range Interpretation Comments PHOSPHOROUS (test code = PHOS) 2.0 MG/DL 2.5-4.9 L [id number] 06:04:00* Test Item Value Reference Range Interpretation Comments MAGNESIUM (test code = MAG) 1.60 mg/dL 1.8-2.4 L BASIC METABOLIC [id number] 05:58:00* Test Item Value Reference Range Interpretation Comments SODIUM (test code = NA) 140 mEq/L 134-147 N POTASSIUM (test code = K) 3.7 mEq/L 3.4-5.0 N CHLORIDE (test code = CL) 112 mEq/L 100-108 H CARBON DIOXIDE (test code = CO2) 23 mEq/L 21-33 N ANION GAP (test code = GAP) 9 0-20 N GLUCOSE (test code = GLU) 82 mg/dL 70-110 N BLOOD UREA NITROGEN (test code = BUN) 17 mg/dL 7-18 N GLOMERULAR FILTRATION RATE (test code = GFR) 80-90 CREATININE (test code = CREAT) mg/dL 0.6-1.3 CALCIUM (test code = CA) 7.5 mg/dL 8.0-10.5 L [id number] 05:58:00* Test Item Value Reference Range Interpretation Comments PHOSPHOROUS (test code = PHOS) MG/DL 2.5-4.9 [id number] 05:58:00* Test Item Value Reference Range Interpretation Comments MAGNESIUM (test code = MAG) 1.60 mg/dL 1.8-2.4 L CBC W/AUTO [id number] 05:49:00* Test Item Value Reference Range Interpretation Comments WHITE BLOOD CELL (test code = WBC) 5.17 x10 3/uL 4.5-11.0 N RED BLOOD CELL (test code = RBC) 2.67 x10 6/uL 3.54-5.02 L HEMOGLOBIN (test code = HGB) 8.8 g/dL 11.0-15.0 L HEMATOCRIT (test code = HCT) 26.2 % 33.0-45.0 L MEAN CELL VOLUME (test code = MCV) 98.1 fL 81.0-99.0 N MEAN CELL HGB (test code = MCH) 33.0 pg 27.0-33.0 N MEAN CELL HGB CONCETRATION (test code = MCHC) 33.6 g/dL 33.0-37. 0 N RED CELL DISTRIBUTION WIDTH CV (test code = RDW) 14.0 % 11.5- 14.5 N RED CELL DISTRIBUTION WIDTH SD (test code = RDW-SD) 50.4 fL 37 .0-54.0 N PLATELET COUNT (test code = PLT) 41 x10 3/uL 150-400 L MEAN PLATELET VOLUME (test code = MPV) 12.4 fL 7.0-9.0 H NEUTROPHIL % (test code = NT%) 56.2 % 56.0-77.0 N IMMATURE GRANULOCYTE % (test code = IG%) 0.4 % 0.0-2.0 N LYMPHOCYTE % (test code = LY%) 25.7 % 14.0-32.0 N MONOCYTE % (test code = MO%) 9.7 % 4.8-9.0 H EOSINOPHIL % (test code = EO%) 7.4 % 0.3-3.7 H BASOPHIL % (test code = BA%) 0.6 % 0.0-2.0 N NUCLEATED RBC % (test code = NRBC%) 0.0 % 0-0 N NEUTROPHIL # (test code = NT#) 2.91 x10 3/uL 2.0-7.6 N IMMATURE GRANULOCYTE # (test code = IG#) 0.02 x10 3/uL 0.00-0.03 N LYMPHOCYTE # (test code = LY#) 1.33 x10 3/uL 1.0-3.8 N MONOCYTE # (test code = MO#) 0.50 x10 3/uL 0.1-0.8 N EOSINOPHIL # (test code = EO#) 0.38 x10 3/uL 0.0-0.2 H BASOPHIL # (test code = BA#) 0.03 x10 3/uL 0.0-0.2 N NUCLEATED RBC # (test code = NRBC#) 0.00 x10 3/uL 0.0-0.1 N MANUAL DIFF REQUIRED (test code = MDIFF) NO [id number] 04:34:00* Test Item Value Reference Range Interpretation Comments AMMONIA (test code = AMM) 54 umol/L 0-35 H [id number] 05:17:00* Test Item Value Reference Range Interpretation Comments AMMONIA (test code = AMM) 41 umol/L 0-35 H BASIC METABOLIC [id number] 05:16:00* Test Item Value Reference Range Interpretation Comments SODIUM (test code = NA) 143 mEq/L 134-147 N POTASSIUM (test code = K) 3.9 mEq/L 3.4-5.0 N CHLORIDE (test code = CL) 115 mEq/L 100-108 H CARBON DIOXIDE (test code = CO2) 24 mEq/L 21-33 N ANION GAP (test code = GAP) 8 0-20 N GLUCOSE (test code = GLU) 89 mg/dL 70-110 N BLOOD UREA NITROGEN (test code = BUN) 20 mg/dL 7-18 H GLOMERULAR FILTRATION RATE (test code = GFR) 84.0 80-90 N Units of measure = ml/min/1.73 m2 CREATININE (test code = CREAT) 0.7 mg/dL 0.6-1.3 N CALCIUM (test code = CA) 8.0 mg/dL 8.0-10.5 N [id number] 05:16:00* Test Item Value Reference Range Interpretation Comments PHOSPHOROUS (test code = PHOS) 2.3 MG/DL 2.5-4.9 L [id number] 05:16:00* Test Item Value Reference Range Interpretation Comments MAGNESIUM (test code = MAG) 1.90 mg/dL 1.8-2.4 BASIC METABOLIC [id number] 05:15:00* Test Item Value Reference Range Interpretation Comments SODIUM (test code = NA) 143 mEq/L 134-147 N POTASSIUM (test code = K) 3.9 mEq/L 3.4-5.0 N CHLORIDE (test code = CL) 115 mEq/L 100-108 H CARBON DIOXIDE (test code = CO2) 24 mEq/L 21-33 N ANION GAP (test code = GAP) 8 0-20 N GLUCOSE (test code = GLU) 89 mg/dL 70-110 N BLOOD UREA NITROGEN (test code = BUN) 20 mg/dL 7-18 H GLOMERULAR FILTRATION RATE (test code = GFR) 80-90 CREATININE (test code = CREAT) mg/dL 0.6-1.3 CALCIUM (test code = CA) 8.0 mg/dL 8.0-10.5 N [id number] 05:15:00* Test Item Value Reference Range Interpretation Comments PHOSPHOROUS (test code = PHOS) MG/DL 2.5-4.9 [id number] 05:15:00* Test Item Value Reference Range Interpretation Comments MAGNESIUM (test code = MAG) 1.90 mg/dL 1.8-2.4 CBC W/AUTO [id number] 05:05:00* Test Item Value Reference Range Interpretation Comments WHITE BLOOD CELL (test code = WBC) 6.72 x10 3/uL 4.5-11.0 N RED BLOOD CELL (test code = RBC) 2.88 x10 6/uL 3.54-5.02 L HEMOGLOBIN (test code = HGB) 9.4 g/dL 11.0-15.0 L HEMATOCRIT (test code = HCT) 28.7 % 33.0-45.0 L MEAN CELL VOLUME (test code = MCV) 99.7 fL 81.0-99.0 H MEAN CELL HGB (test code = MCH) 32.6 pg 27.0-33.0 N MEAN CELL HGB CONCETRATION (test code = MCHC) 32.8 g/dL 33.0-37. 0 L RED CELL DISTRIBUTION WIDTH CV (test code = RDW) 14.4 % 11.5- 14.5 N RED CELL DISTRIBUTION WIDTH SD (test code = RDW-SD) 52.9 fL 37 .0-54.0 N PLATELET COUNT (test code = PLT) 50 x10 3/uL 150-400 L IMMATURE PLATELET FRACTION (test code = IPF) 3.4 % 0.9-11.2 N MEAN PLATELET VOLUME (test code = MPV) 12.3 fL 7.0-9.0 H NEUTROPHIL % (test code = NT%) 61.9 % 56.0-77.0 N IMMATURE GRANULOCYTE % (test code = IG%) 0.1 % 0.0-2.0 N LYMPHOCYTE % (test code = LY%) 22.0 % 14.0-32.0 N MONOCYTE % (test code = MO%) 11.0 % 4.8-9.0 H EOSINOPHIL % (test code = EO%) 4.3 % 0.3-3.7 H BASOPHIL % (test code = BA%) 0.7 % 0.0-2.0 N NUCLEATED RBC % (test code = NRBC%) 0.0 % 0-0 N NEUTROPHIL # (test code = NT#) 4.15 x10 3/uL 2.0-7.6 N IMMATURE GRANULOCYTE # (test code = IG#) 0.01 x10 3/uL 0.00-0.03 N LYMPHOCYTE # (test code = LY#) 1.48 x10 3/uL 1.0-3.8 N MONOCYTE # (test code = MO#) 0.74 x10 3/uL 0.1-0.8 N EOSINOPHIL # (test code = EO#) 0.29 x10 3/uL 0.0-0.2 H BASOPHIL # (test code = BA#) 0.05 x10 3/uL 0.0-0.2 N NUCLEATED RBC # (test code = NRBC#) 0.00 x10 3/uL 0.0-0.1 N MANUAL DIFF REQUIRED (test code = MDIFF) NO - XR CHEST 1 [id number] 04:46:00 FAX: Yoana Humphries MD [phone] [place]: St: ADM FAX: Y Lurdes Harrison [phone] Name: DIANE SIMEON [facility] : 1955 Age/S: 64/F [address] [place] [address] Unit #: [id number] Loc: G.[address] [place] [address] Phys: Lurdes Harrison MD Acct: [id number] Dis Date: Status: ADM IN PHONE #: [phone] Exam Date: 07/21/2019336 FAX #: [phone] Reason: confirm NGT placement EXAMS: CPT CODE: [id number] XR CHEST 1 V [id number] EXAM: CR, XR chest one view: 07/21/2019, 0321 hours HISTORY: confirm NGT placement TECHNIQUE: 1 view of the chest. COMPARISON: 07/20/2019, 0514 hours FINDINGS: Interval absence of endotracheal tube is noted. Nasogastric tube is present, tip in the right upper abdomen probably in distal gastric body. Cardiomediastinal silhouette and osseous structures are stable. Pulmonary vascularity is unremarkable. Improved aeration in the lungs bilaterally. No airspace consolidation seen. Mild elevated right hemidiaphragm. There is no pleural effusion or pneumothorax. IMPRESSIO N: 1. Tip of the nasogastric tube appears to be in distal gastric body. 2. Improved aeration in the lungs since prior study. 3. Inter kehinde extubation. SL: [JSYED-H] Electronic ally Signed by Skyler Molina on 07/21/2019 at 0446 Rep orted and signed by: Jonathan Molina M.D. 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 Clinical Indication: Elevated liver function tests, cirrhosis. Comparison: None. TECHNIQUE: Grayscale and limited color sonographic evaluation of the right upper quadrant of the abdomen and gallbladder region was performed with standard technique. FINDINGS: A study is significantly limited secondary to patient body habitus and overlying bowel gas. LIVER: The visualized liver demonstrates coarse somewhat heterogeneous echotexture. BILE DUCTS: The common bile duct was not seen secondary to overlying bowel gas. GALLBLADDER: The patient has had previous cholecystectomy by report. PANCREAS: The pancreas was not seen secondary to overlying bowel gas. KIDNEY: The right kidney measures 8.5 cm. There is normal renal contour and morphology, with normal parenchymal echotexture. There is no hydronephrosis. AORTA AND INFERIOR VENA CAVA: Not seen secondary to overlying bowel gas. ADDITIONAL COMMENTS: None IMPRESSION: 1. Limited study with findings which may indicate cirrhosis of the liver. 2. Previous cholecystectomy by report. PAGE 1 Signed Report (CONTINUED) Name: DIANE SIMEON [facility] : 1955 Age/S: 64 / F [address] [place] [address] Unit #: [id number] Loc: [facility] [place] [address] Phys: JordanLucio SMITH Acct: [id number] D is Date: Status: ADM IN PHONE #: [phone] Exam Date: 07/20/2019 180 FAX #: Reason: liver cirrhosis;elevated lfts EXAMS: CPT CODE: [id number] [place] [address] <Continued> SL: OCO- H at 1824 Reported and signed by: Mekhi Cates M.D. CC: Lucio Ortega; Yoana Humphries MD Technologist: Afshan Cisneros RDMS(AB)(OB) Trnscb Date/Time: 07/20/2019 (1823) [email or web address] Orig Print D/T: S: 07/20/2019 (1826) Probe: PAGE 2 Signed Report ARTERIAL BLOOD [id number] 15:03:00* Test Item Value Reference Range Interpretation Comments ARTERIAL BLOOD GAS PH (test code = PHA) 7.364 7.35-7.45 N ARTERIAL BLOOD GAS PCO2 (test code = PCO2A) 36.2 mmHg 35-45 N ARTERIAL BLOOD GAS PO2 (test code = PO2A) 184 mmHg 80-100 H BICARBONATE TOTAL HCO3 (test code = HCO3) 20.7 mmol/L 22.0-26.0 L BASE EXCESS (test code = COOKIE) -5.0 mmol/L -4-4 L ABG O2 SATURATION (test code = SATA) 100 % 90-100 N FIO2 (test code = FIO2A) 40 % ABG DELIVERY (test code = PRAKASH) Vent ABG VENT MODE (test code = MODEA) PSV ABG TIDAL VOLUME (test code = TVA) 486 ml ABG PEEP (test code = PEEPA) 5 cmH2O Performed by certified pipeline dispatch operator at [facility] ABG TEMPERATURE (test code = TEMPA) 98.0 F ABG SITE (test code = SITEA) R Rad PREDICTED AA GRADIENT (test code = AP) 62 PREDICTED PO2 (test code = OP) 179 a/A RATIO (test code = RATIO) 0.76 TCO2 ARTERIAL (test code = TCO2A) 22 A-A GRADIENT (test code = AAGRADE) 58 - XR CHEST 1 [id number] 07:39:00 FAX: Ana Sosa [phone] [place]: St: [facility] FAX: Yoana Humphries MD [phone] Name: DIANE SIMEON [facility] : 1955 Age/S: 64/F [address] [place] [address] Unit #: [id number] Loc: G.[address] [place] [address] Phys: Ana Sosa MD Acct: [id number] Dis Date: Status: ADM IN PHONE #: [phone] Exam Date: 07/20/2019624 FAX #: [phone] Reason: sob EXAMS: CPT CODE: [id number] XR CHEST 1 V 93864 Patient: DIANE SIMEON. : 1955; Age: 64 years; Gender: Female. MR: [id number]. Ordering physician: Ana Sosa MD. PORTABLE CHEST AP: HISTORY: Shortness of breath. COMPARISON: Chest x-ray 07/19/2019. FINDINGS: Portable frontal view of the chest was obtained. Stable ET and NG tubes. Improved aeration of right lung since the previous examination. Minimal left-sided atelectasis and/or pleural parenchymal scarring suspected. No infiltrate, pleural effusion or pneumothorax. The cardiomediastinal silhouette and pulmonary vasculature are unremarkable. The partially visualized upper abdomen is unremarkable. IMPRESSION: Improved aeration of right lung. Minimal left-sided atelectasis and/or pleural parenchymal scarring suspected. No infiltrate, pleural effusion or pneumothorax. SL: [id number] at 0739 Reported and signed by: Mitchell Baker M.D. CC: Ana Sosa MD; Yoana Humphries MD Technologist: RT Vero(R) Trnscrd Date/Time/By: 07/20/2019 (0723) : By: [email or web address] Orig Print D/T: S: 07/20/2019 (1230) PAGE 1 Signed Report COMPREHENSIVE METABOLIC [id number] 05:34:00* Test Item Value Reference Range Interpretation Comments SODIUM (test code = NA) 141 mEq/L 134-147 N POTASSIUM (test code = K) 4.1 mEq/L 3.4-5.0 N CHLORIDE (test code = CL) 114 mEq/L 100-108 H CARBON DIOXIDE (test code = CO2) 21 mEq/L 21-33 N ANION GAP (test code = GAP) 10 0-20 N GLUCOSE (test code = GLU) 78 mg/dL 70-110 BLOOD UREA NITROGEN (test code = BUN) 23 mg/dL 7-18 H GLOMERULAR FILTRATION RATE (test code = GFR) 72.0 80-90 L Units of measure = ml/min/1.73 m2 CREATININE (test code = CREAT) 0.8 mg/dL 0.6-1.3 N TOTAL PROTEIN (test code = PROT) 6.5 g/dL 6.4-8.2 N ALBUMIN (test code = ALB) 2.40 g/dL 3.4-5.0 L CALCIUM (test code = CA) 8.3 mg/dL 8.0-10.5 N BILIRUBIN TOTAL (test code = BILT) 3.0 MG/DL <1.5 H SGOT/AST (test code = AST) 57 IUnit/L 15-37 H SGPT/ALT (test code = ALT) 32 IUnit/L 15-65 N ALKALINE PHOSPHATASE TOTAL (test code = ALKP) 126 IUnit/L 20-125 H [id number] 05:34:00* Test Item Value Reference Range Interpretation Comments PHOSPHOROUS (test code = PHOS) 1.9 MG/DL 2.5-4.9 L [id number] 05:34:00* Test Item Value Reference Range Interpretation Comments MAGNESIUM (test code = MAG) 1.60 mg/dL 1.8-2.4 L [id number] 05:18:00* Test Item Value Reference Range Interpretation Comments AMMONIA (test code = AMM) 70 umol/L 0-35 H CBC W/AUTO [id number] 05:12:00* Test Item Value Reference Range Interpretation Comments WHITE BLOOD CELL (test code = WBC) 6.12 x10 3/uL 4.5-11.0 N RED BLOOD CELL (test code = RBC) 2.86 x10 6/uL 3.54-5.02 L HEMOGLOBIN (test code = HGB) 9.5 g/dL 11.0-15.0 L HEMATOCRIT (test code = HCT) 27.7 % 33.0-45.0 L MEAN CELL VOLUME (test code = MCV) 96.9 fL 81.0-99.0 N MEAN CELL HGB (test code = MCH) 33.2 pg 27.0-33.0 H MEAN CELL HGB CONCETRATION (test code = MCHC) 34.3 g/dL 33.0-37. 0 N RED CELL DISTRIBUTION WIDTH CV (test code = RDW) 14.5 % 11.5- 14.5 N RED CELL DISTRIBUTION WIDTH SD (test code = RDW-SD) 51.5 fL 37 .0-54.0 N PLATELET COUNT (test code = PLT) 52 x10 3/uL 150-400 L MEAN PLATELET VOLUME (test code = MPV) 12.8 fL 7.0-9.0 H NEUTROPHIL % (test code = NT%) 63.3 % 56.0-77.0 N IMMATURE GRANULOCYTE % (test code = IG%) 0.3 % 0.0-2.0 N LYMPHOCYTE % (test code = LY%) 24.2 % 14.0-32.0 N MONOCYTE % (test code = MO%) 9.5 % 4.8-9.0 H EOSINOPHIL % (test code = EO%) 2.0 % 0.3-3.7 N BASOPHIL % (test code = BA%) 0.7 % 0.0-2.0 N NUCLEATED RBC % (test code = NRBC%) 0.0 % 0-0 N NEUTROPHIL # (test code = NT#) 3.88 x10 3/uL 2.0-7.6 N IMMATURE GRANULOCYTE # (test code = IG#) 0.02 x10 3/uL 0.00-0.03 N LYMPHOCYTE # (test code = LY#) 1.48 x10 3/uL 1.0-3.8 N MONOCYTE # (test code = MO#) 0.58 x10 3/uL 0.1-0.8 N EOSINOPHIL # (test code = EO#) 0.12 x10 3/uL 0.0-0.2 N BASOPHIL # (test code = BA#) 0.04 x10 3/uL 0.0-0.2 N NUCLEATED RBC # (test code = NRBC#) 0.00 x10 3/uL 0.0-0.1 N MANUAL DIFF REQUIRED (test code = MDIFF) NO PROTHROMBIN [id number] 05:10:00* Test Item Value Reference Range Interpretation Comments PROTHROMBIN TIME PATIENT (test code = PTP) 18.0 SECONDS 9.3-12.9 H INTERNATIONAL NORMAL RATIO (test code = INR) 1.6 0.8-1.2 H TARGET INR BY INDICATION Indication INR1. Prophylaxis of venous thrombosis 2.0 - 3.0 (orthopedic surgery), Prophylaxis of venous thrombosis (other than high-risk surgery), Treatment of Deep Vein Thrombosis/Pulmonary Embolism, Prevention of systemic embolism - Tissue heart valves, Acute Myocardial Infarction (to prevent systemic embolism), Valvular heart disease, Atrial Fibrillation, Bileaflet mechanical valve in aortic position.2. Mechanical prosthetic valves (high risk), 2.5 - 3.5 Presence of Lupus Anticoagulant or Antiphospholipid Antibodies, Prevention of systemic embolism - Acute Myocardial Infarction (to prevent recurrent infarct). ARTERIAL BLOOD [id number] 17:10:00* Test Item Value Reference Range Interpretation Comments ARTERIAL BLOOD GAS PH (test code = PHA) 7.518 7.35-7.45 H ARTERIAL BLOOD GAS PCO2 (test code = PCO2A) 26.4 mmHg 35-45 L ARTERIAL BLOOD GAS PO2 (test code = PO2A) 249 mmHg 80-100 H BICARBONATE TOTAL HCO3 (test code = HCO3) 21.5 mmol/L 22.0-26.0 L BASE EXCESS (test code = COOKIE) -1.0 mmol/L -4-4 N ABG O2 SATURATION (test code = SATA) 100 % 90-100 N FIO2 (test code = FIO2A) 60 % ABG DELIVERY (test code = PRAKASH) Vent ABG VENT MODE (test code = MODEA) AC v con ABG VENT RESP RATE (test code = RRA) 14 /MIN ABG TIDAL VOLUME (test code = TVA) 345 ml ABG PEEP (test code = PEEPA) 5 cmH2O Performed by certified pipeline dispatch operator at [facility] ABG TEMPERATURE (test code = TEMPA) 98.0 F ABG SITE (test code = SITEA) R Rad PREDICTED AA GRADIENT (test code = AP) 103 PREDICTED PO2 (test code = OP) 293 a/A RATIO (test code = RATIO) 0.63 TCO2 ARTERIAL (test code = TCO2A) 22 A-A GRADIENT (test code = AAGRADE) 147 - XR CHEST 1 [id number] 16:23:00 FAX: Yoana Humphries MD [phone] [place]: St: ADM FAX: Shane Guevara MD [phone] Name: AJAYRICADIANE [facility] : 1955 Age/S: 64/F [address] [place] [address] Unit #: [id number] Loc: [place] [address] Phys: Shane Guevara MD Acct: [id number] Dis Date: Status: ADM IN PHONE #: [phone] Exam Date: 07/19/2019 1620 FAX #: [phone] Reason: Respiratory Failure EXAMS: CPT CODE: [id number] XR CHEST 1 V [id number] 1 VIEW CXR. PORTABLE EXAM 4:06 PM HISTORY: Respiratory failure. Hepatic encephalopathy. Seizure-like activity. COMPARISON: This afternoon's 12:56 PM chest x-ray. Interval insertion of an NG tube and endotracheal tube both appear well-positioned. The lungs are hypoinflated. Mild prominence of pulmonary markings accentuated by the hypoinflation. No consolidative infiltrates. No pleural abnormality. Cardiomediastinal silhouette and bones stable. IMPRESSION: Well positioned support devices. Shallow inspiration. END OF IMPRESSION SL: [id number] at 1623 Reported and signed by: Bj Kim M.D. CC: Yoana Humphries MD; Shane Guevara MD Technologist: Wen Lehman RT(R); Radha Lucas RT(R) Trnscrd Date/Time/By: 07/19/2019 (1967) : By: Brenda Orig Print D/T: S: 07/19/2019 (0841) PAGE 1 Signed Report CBC W/AUTO [id number] 13:58:00* Test Item Value Reference Range Interpretation Comments WHITE BLOOD CELL (test code = WBC) 6.31 x10 3/uL 4.5-11.0 N RED BLOOD CELL (test code = RBC) 3.19 x10 6/uL 3.54-5.02 L HEMOGLOBIN (test code = HGB) 10.5 g/dL 11.0-15.0 L HEMATOCRIT (test code = HCT) 31.8 % 33.0-45.0 L MEAN CELL VOLUME (test code = MCV) 99.7 fL 81.0-99.0 H MEAN CELL HGB (test code = MCH) 32.9 pg 27.0-33.0 N MEAN CELL HGB CONCETRATION (test code = MCHC) 33.0 g/dL 33.0-37. 0 N RED CELL DISTRIBUTION WIDTH CV (test code = RDW) 14.6 % 11.5- 14.5 H RED CELL DISTRIBUTION WIDTH SD (test code = RDW-SD) 54.0 fL 37 .0-54.0 N PLATELET COUNT (test code = PLT) 60 x10 3/uL 150-400 L IMMATURE PLATELET FRACTION (test code = IPF) 3.8 % 0.9-11.2 N MEAN PLATELET VOLUME (test code = MPV) 12.2 fL 7.0-9.0 H NEUTROPHIL % (test code = NT%) 82.9 % 56.0-77.0 H IMMATURE GRANULOCYTE % (test code = IG%) 0.5 % 0.0-2.0 N LYMPHOCYTE % (test code = LY%) 8.2 % 14.0-32.0 L MONOCYTE % (test code = MO%) 7.6 % 4.8-9.0 N EOSINOPHIL % (test code = EO%) 0.3 % 0.3-3.7 N BASOPHIL % (test code = BA%) 0.5 % 0.0-2.0 N NUCLEATED RBC % (test code = NRBC%) 0.0 % 0-0 N NEUTROPHIL # (test code = NT#) 5.23 x10 3/uL 2.0-7.6 N IMMATURE GRANULOCYTE # (test code = IG#) 0.03 x10 3/uL 0.00-0.03 N LYMPHOCYTE # (test code = LY#) 0.52 x10 3/uL 1.0-3.8 L MONOCYTE # (test code = MO#) 0.48 x10 3/uL 0.1-0.8 N EOSINOPHIL # (test code = EO#) 0.02 x10 3/uL 0.0-0.2 N BASOPHIL # (test code = BA#) 0.03 x10 3/uL 0.0-0.2 N NUCLEATED RBC # (test code = NRBC#) 0.00 x10 3/uL 0.0-0.1 N MANUAL DIFF REQUIRED (test code = MDIFF) NO PLT [id number] 13:58:00* Test Item Value Reference Range Interpretation Comments PLATELET ESTIMATE (test code = PLTEST) 60-75 THOUSAND ADEQUATE PLATELET MORPHOLOGY (test code = PLTMORPH) NORMAL DRUGS OF ABUSE SCREEN [id number] 13:49:00* Test Item Value Reference Range Interpretation Comments URN COCAINE (test code = COCAURN) NEGATIVE NEGATIVE URN CANNABINOIDS (test code = CANNABURN) NEGATIVE NEGATIVE URN AMPHETAMINE (test code = AMPHETURN) NEGATIVE NEGATIVE URN BARBITURATE (test code = BARBITURN) NEGATIVE NEGATIVE URN BENZODIAZEPINE (test code = BENZOURN) NEGATIVE NEGATIVE Cut-off value:200 ng/mL URN OPIATES (test code = OPIATURN) NEGATIVE NEGATIVE Cut-off value:2000 ng/mL URN PHENCYCLIDINE (PCP) (test code = PHENCURN) NEGATIVE NEGATIV E Cutoffs:Barbiturates 200 ng/mLBenzodiazepines 200 ng/mLTHC Cannabinoids 50 ng/mLOpiates(Morphine) 2000 ng/mLAmphetamine 1000 ng/mLCocaine 300 ng/mLPCP phencyclidine 25 ng/mL Unconfirmed screening results shouldnot be used for non-medical purposes. UA RFLX MICR CULT IF [id number] 13:33:00* Test Item Value Reference Range Interpretation Comments UA COLOR (test code = COLU) SELVIN YEL/STRAW A UA APPEARANCE (test code = APPU) SL CLOUDY CLEAR UA GLUCOSE DIPSTICK (test code = DGLUU) NEGATIVE NEGATIVE UA BILIRUBIN DIPSTICK (test code = BILU) NEGATIVE NEGATIVE UA KETONE DIPSTICK (test code = KETU) NEGATIVE NEGATIVE UA SPECIFIC GRAVITY (test code = SGU) 1.015 1.005-1.030 N UA BLOOD DIPSTICK (test code = ANTONINO) 1+ NEGATIVE A UA PH DIPSTICK (test code = VICKI) 6.0 5.0-7.0 N UA PROTEIN DIPSTICK (test code = PROU) NEGATIVE NEGATIVE UA UROBILINIOGEN DIPSTICK (test code = URO) 4.0 mg/dL 0.2-1.0 A UA NITRITE DIPSTICK (test code = TRAV) NEGATIVE NEGATIVE UA LEUKOCYTE ESTERASE DIPSTICK (test code = LEUU) NEGATIVE NEGA TIVE UA WBC (test code = WBCU) 4-9 WBC/HPF 0-3 A UA RBC (test code = RBCU) 0-3 RBC/HPF 0-3 UA WBC NO REFLEX (test code = WBCUCL) 4-9 WBC/HPF 0-3 A UA BACTERIA (test code = BACU) 3+ /HPF NONE SEEN A UA SQUAMOUS CELLS (test code = SQU) 0-5 /HPF NONE SEEN UA HYALINE CAST (test code = HYALU) 3-5 /LPF NONE SEEN UA MUCUS (test code = MUCU) TRACE /LPF NONE SEEN Indication for culture: Delirium-if no other srcSpecimen Description: CLEAN CATCHCOMPREHENSIVE METABOLIC [id number] 13:33:00* Test Item Value Reference Range Interpretation Comments SODIUM (test code = NA) 141 mEq/L 134-147 N POTASSIUM (test code = K) 4.6 mEq/L 3.4-5.0 N CHLORIDE (test code = CL) 113 mEq/L 100-108 H CARBON DIOXIDE (test code = CO2) 22 mEq/L 21-33 N ANION GAP (test code = GAP) 11 0-20 N GLUCOSE (test code = GLU) 121 mg/dL 70-110 H BLOOD UREA NITROGEN (test code = BUN) 22 mg/dL 7-18 H GLOMERULAR FILTRATION RATE (test code = GFR) 55.6 80-90 L Units of measure = ml/min/1.73 m2 CREATININE (test code = CREAT) 1.0 mg/dL 0.6-1.3 N TOTAL PROTEIN (test code = PROT) 6.8 g/dL 6.4-8.2 N ALBUMIN (test code = ALB) 2.70 g/dL 3.4-5.0 L CALCIUM (test code = CA) 8.8 mg/dL 8.0-10.5 N BILIRUBIN TOTAL (test code = BILT) 2.5 MG/DL <1.5 H SGOT/AST (test code = AST) 40 IUnit/L 15-37 H SGPT/ALT (test code = ALT) 31 IUnit/L 15-65 N ALKALINE PHOSPHATASE TOTAL (test code = ALKP) 156 IUnit/L 20-125 H [id number] 13:33:00* Test Item Value Reference Range Interpretation Comments LIPASE (test code = LIP) 231 IUnit/L 73-393 N TSH REFLEX TO [id number] 13:33:00* Test Item Value Reference Range Interpretation Comments TSH REFLEX TO FT4 (test code = TSHREFLEX) 2.30 IU/mL 0.42-5.47 N [id number] 13:33:00* Test Item Value Reference Range Interpretation Comments ACETAMINOPHEN (test code = ACET) < 2 ug/mL 10-30 L [id number] 13:33:00* Test Item Value Reference Range Interpretation Comments SALICYLATE (test code = MINH) < 1.8 mg/dL 2.8-20.0 L [id number] 13:33:00* Test Item Value Reference Range Interpretation Comments ALCOHOL (test code = ALC) < 0.003 G/dL <0.003 Et hyl Alcohol Interpretation: 0.100 gm/dL - Legally Intoxicated 0.300-0.400 gm/dL - Severely Intoxicated >0.400 gm/dL - Potentially LethalResults are for Medical purposes only, and not for Legal orEmployment evaluation purposes. CBC W/AUTO [id number] 13:26:00* Test Item Value Reference Range Interpretation Comments WHITE BLOOD CELL (test code = WBC) 6.31 x10 3/uL 4.5-11.0 N RED BLOOD CELL (test code = RBC) 3.19 x10 6/uL 3.54-5.02 L HEMOGLOBIN (test code = HGB) 10.5 g/dL 11.0-15.0 L HEMATOCRIT (test code = HCT) 31.8 % 33.0-45.0 L MEAN CELL VOLUME (test code = MCV) 99.7 fL 81.0-99.0 H MEAN CELL HGB (test code = MCH) 32.9 pg 27.0-33.0 N MEAN CELL HGB CONCETRATION (test code = MCHC) 33.0 g/dL 33.0-37. 0 N RED CELL DISTRIBUTION WIDTH CV (test code = RDW) 14.6 % 11.5- 14.5 H RED CELL DISTRIBUTION WIDTH SD (test code = RDW-SD) 54.0 fL 37 .0-54.0 N PLATELET COUNT (test code = PLT) 60 x10 3/uL 150-400 L IMMATURE PLATELET FRACTION (test code = IPF) 3.8 % 0.9-11.2 N MEAN PLATELET VOLUME (test code = MPV) 12.2 fL 7.0-9.0 H NEUTROPHIL % (test code = NT%) 82.9 % 56.0-77.0 H IMMATURE GRANULOCYTE % (test code = IG%) 0.5 % 0.0-2.0 N LYMPHOCYTE % (test code = LY%) 8.2 % 14.0-32.0 L MONOCYTE % (test code = MO%) 7.6 % 4.8-9.0 N EOSINOPHIL % (test code = EO%) 0.3 % 0.3-3.7 N BASOPHIL % (test code = BA%) 0.5 % 0.0-2.0 N NUCLEATED RBC % (test code = NRBC%) 0.0 % 0-0 N NEUTROPHIL # (test code = NT#) 5.23 x10 3/uL 2.0-7.6 N IMMATURE GRANULOCYTE # (test code = IG#) 0.03 x10 3/uL 0.00-0.03 N LYMPHOCYTE # (test code = LY#) 0.52 x10 3/uL 1.0-3.8 L MONOCYTE # (test code = MO#) 0.48 x10 3/uL 0.1-0.8 N EOSINOPHIL # (test code = EO#) 0.02 x10 3/uL 0.0-0.2 N BASOPHIL # (test code = BA#) 0.03 x10 3/uL 0.0-0.2 N NUCLEATED RBC # (test code = NRBC#) 0.00 x10 3/uL 0.0-0.1 N MANUAL DIFF REQUIRED (test code = MDIFF) NO PLT [id number] 13:26:00* Test Item Value Reference Range Interpretation Comments PLATELET ESTIMATE (test code = PLTEST) THOUSAND ADEQUATE CBC W/AUTO [id number] 13:26:00* Test Item Value Reference Range Interpretation Comments WHITE BLOOD CELL (test code = WBC) 6.31 x10 3/uL 4.5-11.0 N RED BLOOD CELL (test code = RBC) 3.19 x10 6/uL 3.54-5.02 L HEMOGLOBIN (test code = HGB) 10.5 g/dL 11.0-15.0 L HEMATOCRIT (test code = HCT) 31.8 % 33.0-45.0 L MEAN CELL VOLUME (test code = MCV) 99.7 fL 81.0-99.0 H MEAN CELL HGB (test code = MCH) 32.9 pg 27.0-33.0 N MEAN CELL HGB CONCETRATION (test code = MCHC) 33.0 g/dL 33.0-37. 0 N RED CELL DISTRIBUTION WIDTH CV (test code = RDW) 14.6 % 11.5- 14.5 H RED CELL DISTRIBUTION WIDTH SD (test code = RDW-SD) 54.0 fL 37 .0-54.0 N PLATELET COUNT (test code = PLT) 60 x10 3/uL 150-400 L IMMATURE PLATELET FRACTION (test code = IPF) 3.8 % 0.9-11.2 N MEAN PLATELET VOLUME (test code = MPV) 12.2 fL 7.0-9.0 H NEUTROPHIL % (test code = NT%) 82.9 % 56.0-77.0 H IMMATURE GRANULOCYTE % (test code = IG%) 0.5 % 0.0-2.0 N LYMPHOCYTE % (test code = LY%) 8.2 % 14.0-32.0 L MONOCYTE % (test code = MO%) 7.6 % 4.8-9.0 N EOSINOPHIL % (test code = EO%) 0.3 % 0.3-3.7 N BASOPHIL % (test code = BA%) 0.5 % 0.0-2.0 N NUCLEATED RBC % (test code = NRBC%) 0.0 % 0-0 N NEUTROPHIL # (test code = NT#) 5.23 x10 3/uL 2.0-7.6 N IMMATURE GRANULOCYTE # (test code = IG#) 0.03 x10 3/uL 0.00-0.03 N LYMPHOCYTE # (test code = LY#) 0.52 x10 3/uL 1.0-3.8 L MONOCYTE # (test code = MO#) 0.48 x10 3/uL 0.1-0.8 N EOSINOPHIL # (test code = EO#) 0.02 x10 3/uL 0.0-0.2 N BASOPHIL # (test code = BA#) 0.03 x10 3/uL 0.0-0.2 N NUCLEATED RBC # (test code = NRBC#) 0.00 x10 3/uL 0.0-0.1 N MANUAL DIFF REQUIRED (test code = MDIFF) NO PLT [id number] 13:26:00* Test Item Value Reference Range Interpretation Comments PLATELET ESTIMATE (test code = PLTEST) THOUSAND ADEQUATE - CT HEAD/BRAIN W/O [id number] 13:22:00 Name: AJAYDIANE STRAUSS [facility] : 1955 Age/S: 64 / F [address] [place] [address] Unit #: [id number] Loc: [place] [address] Phys: Shane Guevara MD Acct: [id number] Dis Date: Status: REG ER PHONE #: [phone] Exam Date: 07/19/2019 1305 FAX #: [phone] Reason: Altered Mental Status EXAMS: CPT CODE: [id number] CT HEAD/BRAIN W/O CONT 66834 PROCEDURE: CT HEAD WITHOUT CONTRAST INDICATION: Altered mental status COMPARISON: There are no previous relevant studies available for correlation. TECHNIQUE: Noncontrast helical imaging performed skull base to the vertex. Multiplanar reformations are obtained. CT imaging performed at this location utilizes radiation dose optimization techniques which include one or more of the following: -Automated exposure control -Adjustment of the mA and/or kV according to patient size -Use of iterative nanci nstruction technique CT Radiation Dose DLP 464.91 mGy-cm FRANCIS ITATIONS: Slight motion artifact may limit sensitivity for focal lesions. FINDINGS: BRAIN PARENCHYMA: There are mild generalized invo lutional changes. Focal encephalomalacia right paramedian parieto-occipita l junction. The cerebral cortical architecture is otherwise maintained. Ar eas of diminished attenuation in the cerebral white matter. The midline structures and posterior fossa contents are grossly normal. No intra-a xial or extra-axial hemorrhage, mass lesion or mass effect. VENT RICLES: The ventricular system is normal. The basilar cisterns are normal . ORBITS, MASTOIDS AND PARANASAL SINUSES: The visualized orbits a re unremarkable. Patchy mucosal thickening paranasal sinuses. Partial opacification of the right maxillary antrum with chronic mucoperiosteal changes and evidence for nasal antral window. Partial opacification of rig ht mastoid air cells which appear underpneumatized on a chronic basis. The left mastoid air cells are pneumatized. Calcified plaque cavernous carotid arteries. Left cavernous carotid stent. SKULL: The calvarium is intact. IMPRESSION: 1. Chronic ischemic changes. 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 2. No hemorrhage, mass lesion or evidence for acute vascular territory PAGE 1 Signed Report (CONTINUED) Name: DIANE SIMEON [facility] : 1955 Age/S: 64 / F [address] [place] [address] Unit #: [id number] Loc: [place] [address] Phys: Julissa Guevara Acct: [id number] Dis Date: Status: REG ER PHONE #: Exam Date: 07/19/2019 1305 FAX #: Reason: Altered Mental Status EXAMS: CPT CODE: [id number] CT HEAD/BRAIN W/O CONT 21170 <Continued> infarct. 3. Intracranial atherosclerosis. If there is continued clinical concern, further imaging options include MRI. SL: [id number] at 1322 Reported and signed by: Juan Jose Pelaez M.D. CC: Shane Guevara MD Technologist:Albina Rodriguez, RT(R)(CT) CTDI: DLP: Trnscb Date/Time: 07/19/2019 (1322) LesviaL Orig Print D/T: S: 07/19/2019 (6575) PAGE 2 Signed Report COMPREHENSIVE METABOLIC [id number] 13:13:00* Test Item Value Reference Range Interpretation Comments SODIUM (test code = NA) 141 mEq/L 134-147 N POTASSIUM (test code = K) 4.6 mEq/L 3.4-5.0 N CHLORIDE (test code = CL) 113 mEq/L 100-108 H CARBON DIOXIDE (test code = CO2) 22 mEq/L 21-33 N ANION GAP (test code = GAP) 11 0-20 N GLUCOSE (test code = GLU) 121 mg/dL 70-110 H BLOOD UREA NITROGEN (test code = BUN) 22 mg/dL 7-18 H GLOMERULAR FILTRATION RATE (test code = GFR) 80-90 CREATININE (test code = CREAT) mg/dL 0.6-1.3 TOTAL PROTEIN (test code = PROT) g/dL 6.4-8.2 ALBUMIN (test code = ALB) g/dL 3.4-5.0 CALCIUM (test code = CA) 8.8 mg/dL 8.0-10.5 N BILIRUBIN TOTAL (test code = BILT) MG/DL <1.5 SGOT/AST (test code = AST) IUnit/L 15-37 SGPT/ALT (test code = ALT) IUnit/L 15-65 ALKALINE PHOSPHATASE TOTAL (test code = ALKP) IUnit/L 20-125 [id number] 13:13:00* Test Item Value Reference Range Interpretation Comments LIPASE (test code = LIP) 231 IUnit/L 73-393 N TSH REFLEX TO [id number] 13:13:00* Test Item Value Reference Range Interpretation Comments TSH REFLEX TO FT4 (test code = TSHREFLEX) IU/mL 0.42-5.47 [id number] 13:13:00* Test Item Value Reference Range Interpretation Comments ACETAMINOPHEN (test code = ACET) ug/mL 10-30 [id number] 13:13:00* Test Item Value Reference Range Interpretation Comments SALICYLATE (test code = MINH) mg/dL 2.8-20.0 [id number] 13:13:00* Test Item Value Reference Range Interpretation Comments ALCOHOL (test code = ALC) G/dL <0.003 - XR CHEST 1 [id number] 13:13:00 FAX: Shane Guevara MD [phone] [place]: St: REG Name: DIANE CHEN [facility] : [birth year] Age/S: 64/F [address] [place] [address] Unit #: [id number] Loc: [place] [address] Phys: Shane Guevara MD Acct: [id number] Dis Date: Status: REG ER PHONE #: [phone] Exam Date: 07/19/2019 1310 FAX #: [phone] Reason: Altered Mental Status EXAMS: CPT CODE: [id number] XR CHEST 1 V 36325 CHEST 1 VIEW: 07/19/2019 COMPARISON: NONE CLINICAL HISTORY: Altered Mental Status FINDINGS: Cardiomediastinal silhouette is borderline in size. No infiltrates or pulmonary edema is present. There is no pne umothorax. IMPRESSION: No acute pulmonary dis ease. at 13 13 Reported and signed by: Lupillo Mena M.D. CC: Shane Guevara MD Techno logist: Taina Melgoza, RT(R); Tali Alcantar,RT(R) Trnscrd Date/Time /By: 07/19/2019 (1313) : By: [email or web address] Orig Print D/T: S: 07/19/2019 ( 0502) PAGE 1 Signed Report PROTHROMBIN [id number] 13:11:00* Test Item Value Reference Range Interpretation Comments PROTHROMBIN TIME PATIENT (test code = PTP) 17.1 SECONDS 9.3-12.9 H INTERNATIONAL NORMAL RATIO (test code = INR) 1.6 0.8-1.2 H TARGET INR BY INDICATION Indication INR1. Prophylaxis of venous thrombosis 2.0 - 3.0 (orthopedic surgery), Prophylaxis of venous thrombosis (other than high-risk surgery), Treatment of Deep Vein Thrombosis/Pulmonary Embolism, Prevention of systemic embolism - Tissue heart valves, Acute Myocardial Infarction (to prevent systemic embolism), Valvular heart disease, Atrial Fibrillation, Bileaflet mechanical valve in aortic position.2. Mechanical prosthetic valves (high risk), 2.5 - 3.5 Presence of Lupus Anticoagulant or Antiphospholipid Antibodies, Prevention of systemic embolism - Acute Myocardial Infarction (to prevent recurrent infarct). THROMBOPLASTIN TIME [id number] 13:11:00* Test Item Value Reference Range Interpretation Comments THROMBOPLASTIN TIME PARTIAL (test code = PTT) 34.2 Seconds 25.0-39. 5 N Therapeutic Range: 50.4 - 88.3 Seconds Effective 11/27/2018 [id number] 13:11:00* Test Item Value Reference Range Interpretation Comments AMMONIA (test code = AMM) 225 umol/L 0-35 H TROPONIN-I [id number] 12:51:00* Test Item Value Reference Range Interpretation Comments TROPONIN-I RAPID (test code = TROPIRAP) 0.02 ng/mL 0.00-0.08 N Performed by certified pipeline dispatch operator at [facility] Negative: <= 0.08 Positive: >= 0.09An elevated troponin value alone is not sufficient todiagnose a myocardial infarction. Rather, the patient sclinical presentation (history, physical exam) and ECGshould be used in conjunction with troponin in thediagnostic evaluation of suspected myocardial infarction. Aserial sampling protocol is recommended to facilitate the identification of temporal changes in troponin levels characteristic of NE. CHEMISTRY 8 [id number] 12:45:00* Test Item Value Reference Range Interpretation Comments ISTAT-SODIUM (test code = NAP) MMOL/L 134-147 ISTAT-POTASSIUM (test code = KP) MMOL/L 3.4-5.0 ISTAT-CHLORIDE (test code = CLP) MMOL/L 100-108 ISTAT CARBON DIOXIDE (test code = ISTAT-CO2) mmol/L 21-33 L ISTAT CALCIUM IONIZED (test code = ISTAT-CHEYANNE) MG/DL 1.12-1.3 2 ISTAT-GLUCOSE (test code = GLUP) MG/DL 70-110 H ISTAT-BUN (test code = BUNP) MG/DL 7-18 H BEDSIDE CREATININE (test code = CREATBED) MG/DL 0.6-1.3 N GLOMERULAR FILTRATION RATE POC (test code = GFRBED) 89 ML/MIN CHEMISTRY 8 [id number] 12:45:00* Test Item Value Reference Range Interpretation Comments ISTAT-SODIUM (test code = NAP) 139 MMOL/L 134-147 N ISTAT-POTASSIUM (test code = KP) 4.8 MMOL/L 3.4-5.0 N ISTAT-CHLORIDE (test code = CLP) 110 MMOL/L 100-108 H Performed by certified pipeline dispatch operator at [facility] ISTAT CARBON DIOXIDE (test code = ISTAT-CO2) 20.0 mmol/L 21-33 L ISTAT CALCIUM IONIZED (test code = ISTAT-CHEYANNE) 1.11 MG/DL 1.12-1.3 2 L ISTAT-GLUCOSE (test code = GLUP) 115 MG/DL 70-110 H ISTAT-BUN (test code = BUNP) 23 MG/DL 7-18 H BEDSIDE CREATININE (test code = CREATBED) 0.7 MG/DL 0.6-1.3 N GLOMERULAR FILTRATION RATE POC (test code = GFRBED) 89 ML/MIN CHEM [id number] 20:52:0030[facility] [id number] 20:52:000.6 [facility] [id number] 20:52:001.7[facility]annCHEM PANEL 2016-10-18 20:52:34685Pfgzrcat HermannCHEM [id number] 20:52:0028[facility]annCHE[facility] [id number] 20:52:002.2[facility] [id number] 20:52:005.8[facility] [id number] 20:52:001.1[facility] [id number] 20:52:000.6[facility] [id number] 20:52:003.6 [facility] UoryphvMUHVBOKEWKML4025-89-97 20:52:0012.0[facility] HermannELECTROLYTES 2016-10-18 20:52:0094[facility] ElbtehrCOZKYQBYVBPV4105-56-32 20:52:007.6[facility] TimgfobUDTCIUPTNIQU1505-21-21 20:52:84264Kgkccgzm KeqbcjkXVMRCHSVZPZN9735-28-39 20:52:0024[facility] LebaxeuAPTTFLJNWSRN9914-87-57 20:52:004.0[facility] MYXOKKKIGOTH8775-64-34 20:52:16436Euxjpfvm PlsiujwMJQZBYHVWGAR0711-78-76 20:52:95474Jtbxpqyv ZuvafsaETRSYJOLFXFF3446-74-57 20:52:008[facility] GUGKATYOIGRA5575-04-08 20:52:000.68[facility] CxinsuwOQPAMSDQRO1388-02-73 20:52:00 50[facility] BygsuckZBEISLCKAR6481-71-73 20:52:00* Test Item Value Reference Range Interpretation Comments PTT (test code = PTT) 36.7 s 22.9-35.8 [facility] CcknkflINGMLLQDDH0972-30-54 20:52:001.51[facility]annHEMATOLOGY 2016-10-18 20:52:00* Test Item Value Reference Range Interpretation Comments PT (test code = PT) 18.5 s 12.0-14.7 [facility] MgasopeHMPIJQBWPW8437-54-00 20:52:003.3[facility]annCHEM PANEL 2016-09-21 10:16:95262Hkmipphe HermannCHEM UUNEL3870-27-04 10:16:0066.0[facility]annCHE[facility] SHZDG3754-54-76 10:16:001.2[facility]annCHE[facility] [id number] 10:16:009[facility]CHE[facility] WDBLK3473-67-33 10:16:003.6[facility] LIRTF9283-14-69 10:16:009.5[facility]CHE[facility] QJOLR0645-63-69 10:16:000.6 [facility]CHE[facility] VREUB4994-68-86 10:16:0041[facility]annCHEM PANEL 2016-09-21 10:16:001.5[facility]CHE[facility] [id number] 10:16:66037Cfjyqjuu HermannCHEM NORXD7158-90-22 10:16:41225Lgfusxbt [facility]annCHE[facility] NDRYA6175-87-35 10:16:002.1[facility]annCHE[facility] ECKLS0831-34-80 10:16:0023[facility]annCHE[facility] UTZUV7982-83-24 10:16:005[facility]CHE[facility] RQUWV8926-56-05 10:16:0075[facility]annCHE[facility] LCLQU5174-01-23 10:16:003.5[facility]annCHE[facility] WNVVI2167-85-01 10:16:74868Dfbkbplh [facility]annCHEM NEGCZ6653-32-65 10:16:000.53[facility]annCHE[facility] IPEUP1495-71-02 10:16:0023[facility]annCHE[facility] GHCUI0699-52-67 10:16:005.7 [facility]CHE[facility] BYCOV6327-95-69 10:16:95914Hiyzremm HermannCHEM PANEL 2016-09-21 10:16:007.3[facility] YsqbfdoRJGTPAMNRH5222-81-98 10:16:000.3[facility] BtgihguNYTEGBDNGS5264-17-17 10:16:000.2[facility] YiugfrcXMMMZBAWPS3767-28-59 10:16:004.1[facility] SqsaxjhFDLQMJAVCJ1983-66-50 10:16:001.1[facility] KNAKYPSBCG3053-72-83 10:16:000.7[facility] NhyjhksEJOVDKZBJV9034-54-84 10:16:002.4 [facility] BnvvronGEWQCIOFSS8800-75-75 10:16:0059.0[facility]annHEMATOLOGY 2016-09-21 10:16:0027.6[facility] SwwdrjsSCFLMIQHZI6155-54-63 10:16:008.6[facility] HxraljcKAIRRVZVTU3460-73-25 10:16:0010.0[facility] WlmiwzaIQSDELSKKR6192-27-72 10:16:0034.4[facility] RqpsaenPPKUHIEGPR6843-41-53 10:16:00* Test Item Value Reference Range Interpretation Comments MCH (test code = MCH) 31.1 pg 27.0-31.0 [facility] UidluicGYWBLZXALQ1831-47-89 10:16:0015.6[facility] HermannHEMATOLOGY 2016-09-21 10:16:0048[facility] GcqexsiQYKJMHXHMW4847-23-98 10:16:0090.4[facility] GelunwbYARULKINGU5330-29-79 10:16:004.0[facility] GyuuxbpQPVEACCNQQ4748-36-40 10:16:0028.7[facility] FrxdmvpYNJTDYDRRE0852-48-50 10:16:003.18[facility] GVLTBUNQMR4351-24-67 10:16:009.9[facility] SgyhwadAATNMIPKNP3277-87-17 10:16:00 1:160 *ABN*(09/21/16 4:16 AM)[facility] NauezjtLTQXZNLQFT9089-02-88 10:16:00Negative *NA*(09/21/16 4:16 AM)[facility] EbkkpiuEDWGDPSTQG0609-04-46 10:16:00Negative *NA*(09/21/16 4:16 AM)[facility] UnnpwmuBKSFKBXQJD4433-99-32 10:16:00Negative *NA*(09/21/16 4:16 AM)[facility] FgzcyyuJAROBBVPFD7495-22-86 10:16:00Negative *NA*(09/21/16 4:16 AM)[facility] ZzmouqsAGSQKRCZQT2669-73-97 10:16:00Positive *ABN*(09/21/16 4:16 AM)[facility] NccvbvhFVMUFU5419-79-31 10:16:003.00[facility] PyuewujTMXIGH4168-74-21 10:16:009[facility] QnxnajyKUMVZR2403-51-58 10:16:0063 [facility] QciutcqEWZTEL9931-30-59 10:16:0036[facility] WerydwbCGZEPU6219-52-00 10:16:02866Efjhhtos JjyphdlIFNUHG7664-65-58 10:16:0044[facility] HermannANEMIA SKJJG1567-49-82 12:29:0019.6[facility] HermannANEMIA XCYVE6670-80-80 12:29:85222 [facility]annANEMIA UBRGU0707-29-22 12:29:0034[facility]annANEMIA STUDY 2016-09-20 12:29:91728Ynkmcdvs HermannANEMIA ZBAHE9167-57-63 12:29:66298Kjoaarsz HermannANEMIA BVRPC2084-26-77 12:29:0053[facility]annANEMIA AGRWU9825-84-31 12:29:0015[facility] HermannCHEM RQAOK8543-86-50 12:29:0015[facility] HermannCHEM MJCSI9880-24-95 12:29:0010.8[facility] HermannCHEM TCZFT0889-97-31 12:29:000.6 [facility]annCHEM VGKZC0439-15-54 12:29:003.3[facility] HermannCHEM PANEL 2016-09-20 12:29:83093Nzqqszfu HermannCHEM QUCTP3132-33-09 12:29:27289Txoiivzw HermannCHEM NAXOP2892-69-81 12:29:003.8[facility] HermannCHEM XFQOS2369-87-63 12:29:39494Nojcsmht HermannCHEM NBRTD5089-32-15 12:29:000.46[facility] HermannCHEM SUVUB2645-25-99 12:29:007[facility] HermannCHEM IGJKK4724-45-43 12:29:0075[facility] HermannCHEM QUQDM4217-28-76 12:29:001.8[facility] HermannCHEM DATUF9321-98-66 12:29:72808Smrlddfq HermannCHEM UJQBZ6698-04-57 12:29:0037[facility] HermannCHEM IHBGY0446-91-87 12:29:0020[facility]annCHEM VLSNB7755-30-87 12:29:001.9 [facility]annCHEM JRYQQ4337-47-14 12:29:005.2[facility] HermannCHEM PANEL 2016-09-20 12:29:007.1[facility] HermannCHEM YHKNR2071-99-17 12:29:0022[facility] WzzalqiTJSOJBNQFT6920-46-15 12:29:000.6[facility] NcquralWGZQMEAMEJ6697-28-54 12:29:002.0[facility] FnrecyyAFOGLMPKFF8223-56-60 12:29:001.1[facility] RPDKPDKEJX8381-41-86 12:29:000.3[facility] AwycfafVFTIDNBSOO6845-67-55 12:29:000.1 [facility] JoblzocDELRTHMMEV9100-06-19 12:29:0055.3[facility] HermannHEMATOLOGY 2016-09-20 12:29:0030.8[facility] PodakfnBWIWAIITTX7417-58-34 12:29:009.4[facility] UrhkhxlYNASWJNFUC0246-61-44 12:29:003.9[facility] QaluulbWDJEUKFOMR4613-65-67 12:29:00* Test Item Value Reference Range Interpretation Comments PT (test code = PT) 21.6 s 12.0-14.7 [facility] NixsxpqKSMOWROUYR5628-15-18 12:29:001.84[facility]annHEMATOLOGY 2016-09-20 12:29:0015.4[facility] DdskshhIBGDDYNVLX1521-14-60 12:29:0010.6[facility] ZrhbhcpKRHKUXCYRS3897-67-38 12:29:0046[facility] ErlrvizOPTSSJPFMS0838-89-60 12:29:009.3[facility] MbfrboxQLHONWGVZC6755-02-09 12:29:002.98[facility] [place] PBYVXIGMJD7997-57-39 12:29:003.6[facility] OgvnympVZBXQJWQLG2317-38-44 12:29:00* Test Item Value Reference Range Interpretation Comments MCH (test code = MCH) 31.1 pg 27.0-31.0 [facility] HrwsedkHKMDKTPMCX4831-32-81 12:29:0034.5[facility] HermannHEMATOLOGY 2016-09-20 12:29:0026.9[facility] NohrosaFRLNAWARYV4403-81-65 12:29:0090.1[facility] ZadcjgvVXJZMWXKHS5196-02-89 12:29:002.0[facility] NspctmeXLIKCSBUQE1385-21-67 12:29:00Negative *NA*(09/20/16 6:29 AM)[facility] QncqrutMRYDNLWGHW2203-35-30 12:29:00Negative *NA*(09/20/16 6:29 AM)[facility] RplzgahAYTBZJSBJR6096-83-86 12:29:00Negative *NA*(09/20/16 6:29 AM)[facility] HimhepxORGVMPJMWB4456-67-45 12:29:00Negative *NA*(09/20/16 6:29 AM)[facility] VhmtelbSMORSQULHK9426-78-83 12:29:00Negative *NA*(09/20/16 6:29 AM)[facility] GqgmwwiVFENMZFPYX7405-91-16 12:29:00Negative *NA*(09/20/16 6:29 AM)[facility] ZbxmktjJJCGSNXVRD2859-68-17 12:29:00Negative *NA*(09/20/16 6:29 AM)[facility] QssaxpvRYTIONBWOT0779-96-77 12:29:00Negative *NA*(09/20/16 6:29 AM)[facility] VeoynedRVTGWHTQRY5358-07-46 12:29:00Positive *NA*(09/20/16 6:29 AM)[facility] McimqlrZYIBHTSRDO3582-13-53 12:29:00Negative *NA*(09/20/16 6:29 AM)[facility] AoquhhgDCJIYFVIEU0035-20-92 12:29:00<3.1[facility] HermannCHEM IZBVH8795-97-06 11:43:002.1[facility] HermannCHEM HZPPC3753-74-41 11:43:83927Pnskphem HermannCHEM WZPNI0024-86-09 11:43:000.49 [facility]annCHEM QTZQJ6437-04-00 11:43:003.6[facility]annCHEM PANEL 2016-09-19 11:43:69155Einkfkod HermannCHEM FNBTZ3442-82-52 11:43:0021[facility]annCHEM YLXMP5006-98-39 11:43:18771Yzqbzraq HermannCHEM IUIEZ8421-84-10 11:43:0021[facility]annCHEM VWVYQ7131-17-36 11:43:007.4[facility]annCHEM QXWVO7772-29-23 11:43:0010[facility]annCHEM BASUM9937-31-77 11:43:002.2 [facility]annCHEM CVHJJ8779-36-47 11:43:005.9[facility]annCHEM PANEL 2016-09-19 11:43:0073[facility]annCHEM JNOJM8720-27-69 11:43:04883Cxrihpvs HermannCHEM UNJRF3639-99-61 11:43:0034[facility]annCHEM AOTIY3138-28-36 11:43:001.5[facility]annCHEM AGOMU2144-15-79 11:43:000.6[facility]annCHEM RYARR8664-37-24 11:43:003.7[facility]annCHEM ZPOZW1149-64-57 11:43:0020 [facility]annCHEM MJQJT8205-05-39 11:43:0012.6[facility] HermannHEMATOLOGY 2016-09-19 11:43:001.2[facility] EvuqymiBFMIRRVICL1038-36-91 11:43:000.4[facility] YgrdsyyEDPQVTUGNT0460-67-50 11:43:008.2[facility] QfuvdqxUHXTCSMIJP6610-22-14 11:43:0027.5[facility] JowxrmgYEVFBAELQX7243-33-15 11:43:000.1[facility] GGGWVEBDIB9906-93-21 11:43:002.7[facility] WfmbyksKYYIXDDBRQ8459-77-11 11:43:000.6 [facility] ExsoiepFQJQTXFTMT7193-43-54 11:43:002.3[facility] HermannHEMATOLOGY 2016-09-19 11:43:0061.4[facility] KecjfteRSIFYXYJME6901-92-80 11:43:0034.4[facility] VbrfwbrBHGTEYFJQC3708-93-82 11:43:0060[facility] SfbcmxsPPYNIOLSZK9487-61-68 11:43:0015.3[facility] GaiqgeuCETMPWGABG9639-19-53 11:43:00* Test Item Value Reference Range Interpretation Comments MCH (test code = [facility]) 31.1 pg 27.0-31.0 [facility] OiclavmTJQMCAZTIN0851-63-90 11:43:0090.4[facility] HermannHEMATOLOGY 2016-09-19 11:43:0010.6[facility] GrllktyXHICMIFENJ0463-75-04 11:43:0029.6[facility] OkyeiafOOTPWRESSS9673-52-38 11:43:0010.2[facility] AizmdirSNNLQQQNCL9174-10-83 11:43:003.28[facility] QgbasogCZBYVHPTTG6182-97-72 11:43:004.4[facility] HermannCHEM PMFLX7747-28-01 23:53:001.9[facility]annCHEM YODFY3411-51-28 20:48:73103 [facility] HermannVIRAL - PDSMDRWZ9106-75-86 20:48:00Negative (09/18/16 2:48 PM) [facility]annVIRAL - YJZYFWEX2739-71-95 20:48:00Negative (09/18/16 2:48 PM) [facility]annCARDIAC GZNVKQK7460-66-99 20:45:00<0.02[facility] HermannCARDIAC PWOYEVZ7689-43-84 20:45:001.4[facility] HermannCARDIAC EIUCKYO0594-99-37 20:45:00 73[facility] HermannCARDIAC CVQAHAX4730-51-26 20:45:001.9[facility] HermannCHEM VZRLS4031-83-38 20:45:002.6[facility] HermannDRUG BNOQSS1715-86-87 20:45:00See Note *NA*(09/18/16 2:45 PM)[facility] HermannDRUG VPCALY5573-04-42 20:45:00Negative *NA*(09/18/16 2:45 PM)[facility] HermannDRUG ROAHUF4502-76-33 20:45:00Negative *NA*(09/18/16 2:45 PM)[facility] HermannDRUG OPHETP7304-34-17 20:45:00Negative *NA*(09/18/16 2:45 PM)[facility] HermannDRUG DNAIUE5635-87-64 20:45:00Negative *NA*(09/18/16 2:45 PM)[facility] HermannDRUG OOYEFU6742-26-59 20:45:00Negative *NA*(09/18/16 2:45 PM)[facility] HermannDRUG QUWSQN6669-44-98 20:45:00Negative *NA*(09/18/16 2:45 PM)[facility] HermannDRUG UQSGTX1016-47-39 20:45:00Negative *NA*(09/18/16 2:45 PM)[facility] ZovhjddAKCKMHLPQR4593-77-36 20:45:00<0.003[facility] OdamztjCSYFPBPSUQ0739-78-07 20:45:00<3[facility]annURINE AND GCCSU7115-34-65 20:45:00Negative (09/18/16 2:45 PM)[facility] AND THYTJ7249-01-63 20:45:001[facility]annUR[facility] AND MMDIP3301-65-82 20:45:00Negative (09/18/16 2:45 PM)[facility] AND GMIKA7773-98-80 20:45:001[facility]annUR[facility] AND XNCDJ8222-88-65 20:45:004.0[facility]annUR[facility] AND DDVXA9821-60-43 20:45:006.0 [facility] AND YEBFC0111-90-19 20:45:00Clear (09/18/16 2:45 PM)[facility] AND GNHZV3139-89-66 20:45:001.027[facility]annUR[facility] AND STOOL 2016-09-18 20:45:00Negative (09/18/16 2:45 PM)[facility] AND STOOL 2016-09-18 20:45:00Negative *NA*(09/18/16 2:45 PM)[facility] HermannCARDIAC ENZYMES 2016-04-29 08:01:00<0.02[facility]annURINE AND OZIXD1538-21-18 06:18:007 [facility] AND JEJLL1410-62-97 06:18:001[facility]annUR[facility] AND DURUX6433-89-00 06:18:002.0[facility]annUR[facility] AND IUPTT8096-78-64 06:18:00 Positive *ABN*(04/29/16 1:18 AM)[facility] AND EXOIL0692-33-24 06:18:00Negative *NA*(04/29/16 1:18 AM)[facility] AND DRQFH8817-25-39 06:18:00Small *ABN*(04/29/16 1:18 AM)[facility] AND PYXLM9470-97-69 06:18:00Small *ABN*(04/29/16 1:18 AM)[facility] AND WECNV3106-99-99 06:18:005.0[facility]annUR[facility] AND VNSJX2852-99-86 06:18:00Yellow *NA*(04/29/16 1:18 AM)[facility]ann[facility] AND VILAP1639-57-50 06:18:001.011[facility]INE AND IVHZA1699-72-10 06:18:00Clear (04/29/16 1:18 AM)[facility] HermannCARDIAC ZQLCUZM9821-20-56 05:39:0050[facility] HermannCARDIAC OSEGZKT4171-62-94 05:39:00< 0.02[facility] HermannCARDIAC XHIJKJT6325-43-98 05:39:0058[facility]annCARDIAC WDPHPAQ5022-93-15 05:39:000.9[facility] HermannCARDIAC DLYYNWJ5541-99-59 05:39:00 1.6[facility] HermannCHEM DITLJ1538-05-69 05:39:000.6[facility] HermannCHEM PANEL 2016-04-29 05:39:0094[facility] HermannCHEM WGYCQ9101-87-66 05:39:004.1[facility] HermannCHEM KRTBW2696-31-44 05:39:000.6[facility] HermannCHEM SZBRJ4610-23-89 05:39:003.3[facility] HermannCHEM VITLN9332-84-13 05:39:44639Quhqdbgd HermannCHEM NFAEZ1539-90-22 05:39:002.6[facility] HermannCHEM HFPNJ4845-87-46 05:39:0021 [facility]annCHEM EUGGB8301-51-25 05:39:0027[facility] HermannCHEM PANEL 2016-04-29 05:39:008.2[facility] HermannCHEM EQYXI8299-81-45 05:39:006.7[facility] HermannCHEM BRYAT9454-19-71 05:39:0010.3[facility] HermannCHEM ZESKO2972-67-31 05:39:001.5[facility] HermannCHEM TTKWV7300-95-14 05:39:77487Kftdnugz HermannCHEM NPDVK6929-48-20 05:39:0038[facility] HermannCHEM WHPJR3452-72-48 05:39:0016 [facility]annCHEM UKBEA2105-21-77 05:39:0079[facility] HermannCHEM PANEL 2016-04-29 05:39:0011[facility] HermannCHEM AIKGM9572-72-98 05:39:000.70[facility] HermannCHEM QIYNO4367-04-55 05:39:33691Fvugsopd TbviwvjMCVCGFSCAC1687-30-19 05:39:00* Test Item Value Reference Range Interpretation Comments PTT (test code = PTT) 32.1 s 22.9-35.8 [facility] WboyslxHZBUSIUDEW1634-35-59 05:39:001.42[facility] HermannHEMATOLOGY 2016-04-29 05:39:00* Test Item Value Reference Range Interpretation Comments PT (test code = PT) 17.7 s 12.0-14.7 [facility] JgocbmlKFEPGEJTVK5855-28-52 05:39:00* Test Item Value Reference Range Interpretation Comments MCH (test code = MCH) 30.6 pg 27.0-31.0 [facility] PcvjavhIDCEWPWVCB8961-81-65 05:39:0090.3[facility] HermannHEMATOLOGY 2016-04-29 05:39:0011.3[facility] TxriuffQCJWQUVKFE8612-66-83 05:39:003.68[facility] QiagxckRVKTZSIPTN7543-89-52 05:39:0033.2[facility] UcxtliiCOBEHOEOCA8188-30-31 05:39:0010.9[facility] UvzynahAJZVMESSYD2399-82-75 05:39:005.6[facility] ZSIVDUYPTU3934-76-34 05:39:0052[facility] NwvqlmiIKHUGXCFZX5178-99-03 05:39:0015.2 [facility] KpusgmmPFAYCJKUZO0777-14-34 05:39:0033.9[facility] HermannHEMATOLOGY 2016-04-29 05:39:002.0[facility] BqsirvgFHMTSBERVA4948-75-78 05:39:008.1[facility] WzeoxzqDKWUSGWCJE2483-18-65 05:39:000.9[facility] BjimokyRSZMCEXNWV7200-06-54 05:39:0063.2[facility] YoyrtosKKSLEYHCGS2519-25-25 05:39:0025.8[facility] HUWCDWBRJZ9296-62-96 05:39:000.1[facility] BzdhhmuAHRXGFKSIC0438-17-37 05:39:001.4 [facility] IbxfpzjHDFXGTFZUQ2643-82-03 05:39:000.1[facility] HermannHEMATOLOGY 2016-04-29 05:39:000.5[facility] CouugjnDWJLYKSCDA0091-29-56 05:39:003.5[facility] HermannBEDSIDE GLUCOSE HDWBUMU7475-56-34 16:42:50672Ijxfcpfy HermannBEDSIDE GLUCOSE RHLWKZP8888-15-89 12:53:84484Wogebysx HermannBEDSIDE GLUCOSE TESTING 2012-03-23 09:13:17851Jtwufhep FknpgbwRJUEAVDPYI3271-00-76 08:39:0060[facility] QstaifsZPXDFQHGLS6679-15-67 08:39:82159Laqinsbh KxcafugMCKLZUCUA0424-72-63 06:05:0019[facility] SrjhxhbUOQIAVUMS5125-70-88 06:05:000.8[facility] DIBPLVEQE4260-16-38 06:05:49362Mmvobswm OphpalnRTPOODSTQ2336-97-86 06:05:003.7 [facility] YdgwddfHIDVWRSBB7603-24-18 06:05:44829Xkgqbsyh HermannCHEMISTRY 2012-03-23 06:05:007.8[facility] ErageeaGBEBFHAPM9238-12-02 06:05:11750Tzrqyucn BbnyvfnCDMKXDFFW1677-60-45 06:05:007[facility] ZaghfgyAPWHTJKPS2806-04-03 06:05:00 16.7[facility] XtuuvgnDHWJXAJFG1650-08-16 06:05:002.2[facility] HermannCHEMISTRY 2012-03-23 06:05:001.8[facility] KcqwgfnSEKFBSJPV7545-79-22 06:05:001.22[facility] ScrhmelORTYLALYR7300-08-51 06:05:001.16[facility] CaoshcaDVQGOIEUS8302-00-07 06:05:004.88[facility] NdotkwgBURUBQKJZ8580-51-70 06:05:004.64[facility] GMPIRKSXDG3745-42-53 06:05:00* Test Item Value Reference Range Interpretation Comments PT (test code = PT) 15.4 s 12.0-14.7 H [facility] TxebntaGCSFHUVSES5936-08-00 06:05:001.20[facility] HermannHEMATOLOGY 2012-03-23 06:05:00* Test Item Value Reference Range Interpretation Comments PTT (test code = PTT) 32.2 s 22.9-35.8 N [facility] GgepzpnXJSJRWMOCA6599-72-58 06:05:007.8[facility] HermannHEMATOLOGY 2012-03-23 06:05:0011.8[facility] IcisiczZIOSQNDJDO7357-83-19 06:05:003.77[facility] EhkcbonFBCRZNAPZW0495-08-51 06:05:0034.0[facility] CjpelbtUGIQIJURMB2766-11-61 06:05:00* Test Item Value Reference Range Interpretation Comments MCH (test code = MCH) 31.4 pg 27.0-31.0 H [facility] OadybpjSMBKXCCQGN3124-91-50 06:05:0078[facility] HermannHEMATOLOGY 2012-03-23 06:05:0090.4[facility] FbuzjbxYSHGEIJEBA3264-74-97 06:05:0013.6[facility] ZqxymsgZEFQIOFTLL3886-40-44 06:05:0034.7[facility] AcmimvxRSPQWRSLZF6507-84-92 06:05:0010.4[facility] OpjorsxOBQKQHSJFD9195-26-14 06:05:0080.1[facility] YCHFBDLAZJ6931-76-18 06:05:0015.4[facility] AnsghciIPLKMJNPWK7421-01-95 06:05:00 4.3[facility] ValnlpuZEYSBLIACB7007-76-10 06:05:000.3[facility] HermannHEMATOLOGY 2012-03-23 06:05:000.0[facility] IryerlkHKIDVEKYPU0289-82-72 06:05:000.0[facility] BrtroigDUACXMVRCU1905-43-83 06:05:000.2[facility] ZjxgvtdDYTFBNHQSW6523-66-33 06:05:000.0[facility] GaurasbWJZRUFTNFY9526-03-47 06:05:006.2[facility] TEXSBVITHI3095-37-92 06:05:001.2[facility] YlkgteiHJRMVVLQIT4983-01-71 21:17:24559 [facility] MerjenvQTIPOYBIQE6783-50-28 21:17:0051[facility] HermannCHEMISTRY 2012-03-22 19:40:97279Okrvcfng WnaanlzQYJGGVYPT2789-63-98 19:40:0022[facility] PaikjapEBPFICOPJ9207-69-38 19:40:007.6[facility] SqkqeaxZDQPLGETL0091-44-45 19:40:0013.8[facility] YendhjhBKADXFSAB7550-12-57 19:40:003.8[facility] UKGXUBCNJ8648-22-96 19:40:000.7[facility] GqufstyJWQABFLKM8378-51-66 19:40:55514 [facility] ZgrwtpbTPQGRMPZJ8529-89-34 19:40:007[facility] HqwcwgdUEVGDQOYY8587-16-31 19:40:82186Aeyusroa CxxemmfHOWMFLMVI0839-93-07 19:40:002.4[facility] NSFRYHTBQ3864-48-60 19:40:001.8[facility] CmfswhcMUGWMCETNK2007-74-45 19:40:0035.2 [facility] UpalvagRYVFVMFRFM5923-84-66 19:40:0011.9[facility] HermannURINALYSIS 2012-03-22 19:40:00Negative (03/22/2012 14:40:00) [facility] 2012-03-22 19:40:00Negative *NA*(03/22/2012 14:40:00) [facility] XTXEHAWKGG7606-69-38 19:40:00Trace *ABN*(03/22/2012 14:40:00) [facility] IYNUACXZKN6645-13-25 19:40:00Trace *ABN*(03/22/2012 14:40:00) [facility] ERPDWQFWOA3871-38-26 19:40:00Occasional /LPF *NA*(03/22/2012 14:40:00) [facility] FvyezcvJHHLPEWDKL0006-03-75 19:40:0042[facility] OqbnkoyWSKYSRGMVK7486-92-63 19:40:005[facility] PfbtgkiSBTLKWIMYO3422-19-76 19:40:00Negative mg/dL *NA*(03/22/2012 14:40:00) [facility] OlpodzmJUUNXPLLBL7705-68-74 19:40:00Clear (03/22/2012 14:40:00) [facility] DvclyzgSJNCEOYZFZ9147-66-30 19:40:00Negative mg/dL *NA*(03/22/2012 14:40:00) [facility] CinyxfoUXHKRNLXDK2122-79-13 19:40:00 Negative mg/dL (03/22/2012 14:40:00) [facility] RqcrkibQFEGKPRKCW8478-02-24 19:40:006.5[facility] RkvpbvpYILXBALDLS5511-30-02 19:40:001.038[facility] UMXNMVMDPB2846-43-88 19:40:00Yellow *NA*(03/22/2012 14:40:00) [facility] UYTOOFIGY1533-05-34 16:52:003.4[facility] AlskehoAISKVAAJW9519-72-32 16:52:05857 [facility] QaymermFOUWJWEJP3975-01-37 16:52:0029.0[facility] HermannCHEMISTRY 2012-03-22 16:52:001.08[facility] ZwbicvxNTOMOIKEX5649-37-76 16:52:001.0[facility] UcyziclDQXNJYHEG1237-92-03 16:52:0095[facility] AcanzqcWIWLPZKJR8095-87-64 16:52:0099.0[facility] WjokngwLMDJWOTKX9490-39-91 16:52:00-1[facility] MNVPRWCEH5077-38-69 16:52:89489Fhxizest IznmooiZUMAHEEGA7441-31-60 16:52:0041 [facility] EbzsqmiIZMAOONYV6721-19-16 16:52:0024[facility] HermannCHEMISTRY 2012-03-22 16:52:007.38[facility] FgiukglIDNXRSVVA7901-12-81 16:52:0037.0[facility] UazuiltACHCZCJGTH9808-53-03 16:45:04033Oylffbed ZvbumeyONOVELWATR7695-51-09 16:45:0023[facility]annBLOOD BANK QZIPBWM2518-34-39 15:00:00Product available (03/22/2012 10:00:00) [facility] HermannTripologyOOD BANK NIBMSEJ3420-79-33 12:00:00 Negative (03/22/2012 07:00:00) [facility] AfllhcbBOYLOPDVD4748-89-81 19:45:32562 [facility] TnvdizfSYWKCMMOF3175-19-35 19:45:009.0[facility] HermannCHEMISTRY 2012-03-08 19:45:0026[facility] BceemwdJQKLJMCGY0757-66-15 19:45:000.5[facility] OrtaeyvMSKJENQIU6084-99-63 19:45:0064[facility] RpgwfeyNJGIUTLXB4408-12-40 19:45:008.3[facility] ZkjlxibNQBRJAOLZ9049-61-91 19:45:24065Nwbjcfiu [facility] KGKRHYGFS2243-60-47 19:45:69636Xsygyivb UhbkjeiSMQROHHBU8802-73-26 19:45:0089 [facility] ZhizqhoOGYFOMBJE0895-01-20 19:45:000.9[facility] HermannCHEMISTRY 2012-03-08 19:45:0010[facility] RbayvaiILLAFKYUO6176-40-65 19:45:0065[facility] BvfulxsRPNKGIRPO0191-74-75 19:45:003.7[facility] RlcipsoINXKEADHO2247-63-61 19:45:003.7[facility] MvjorfnMQRSTIKTO9135-71-11 19:45:000.8[facility] FGDEUQMKL8256-21-17 19:45:0014.7[facility] BeywrpyYYGKHHPWN0378-32-26 19:45:0011 [facility] IjdntpkYXCGNZPHC1348-89-24 19:45:004.6[facility] HermannHEMATOLOGY 2012-03-08 19:45:00Slight *ABN*(03/08/2012 14:45:00) [facility]annHEMATOLOGY 2012-03-08 19:45:000.0[facility] UkjramvJQJWLAJODP5703-17-04 19:45:0055.0[facility] CbriwsyFLFZWIDPGU3324-77-29 19:45:00Normal (03/08/2012 14:45:00) [facility] LpuoknhQWBIBUROJH7892-93-38 19:45:00Normal (03/08/2012 14:45:00) [facility] NkvxcsnONEMAOYGGZ2640-32-20 19:45:000.6[facility] VqlyvfsUVRCIABBSV8749-84-26 19:45:000.1[facility] SvaffocZXWWZMUYID2507-50-21 19:45:000.5[facility] SAPEANXTZG0697-14-78 19:45:002.6[facility] MmfmltkNKJFVHVLRG3248-48-50 19:45:004.0 [facility] UqmdzsuABTQYTNCHH9511-77-76 19:45:001.4[facility] HermannHEMATOLOGY 2012-03-08 19:45:0035.5[facility] GfowvieFJDPVXTJJQ2804-23-60 19:45:007.6[facility] UhhswtnRFXPEAXXQA8722-98-48 19:45:00* Test Item Value Reference Range Interpretation Comments PTT (test code = PTT) 34.8 s 22.9-35.8 N [facility] PautowgRVWZJJGWND6428-15-29 19:45:00* Test Item Value Reference Range Interpretation Comments PT (test code = PT) 14.7 s 12.0-14.7 N [facility] FqqyatdJCAKBBSDAW9969-77-44 19:45:001.15[facility] HermannHEMATOLOGY 2012-03-08 19:45:0013.2[facility] RrdgximEBAPFZHJNA7659-08-78 19:45:007.3[facility] NrigdudAPVDPFCQLZ5011-80-96 19:45:0034.5[facility] BodfzlwJRYSBGSMVK5442-32-89 19:45:004.62[facility] LfthqavKIXKGLXBGZ8589-76-15 19:45:0090.5[facility] MDDCPDZWAI4175-63-87 19:45:00* Test Item Value Reference Range Interpretation Comments MCH (test code = MCH) 31.3 pg 27.0-31.0 H [facility] MkzffaeLYEBHDENLY9478-97-82 19:45:0014.4[facility] HermannHEMATOLOGY 2012-03-08 19:45:0041.8[facility] MaymcraGAIQKRAGFW0124-15-46 19:45:0012.5[facility] IsocvfzGXNGFDBZSP5163-64-02 19:45:25082Etompnba [facility]
[2020-03-15 08:51] LABS: BASOPHILS % 0.6 % (0.0-1.0); EOSINOPHILS # (AUTO) 0.1 (0.0-0.4); EOSINOPHILS % 2.7 % (0.0-6.0); LYMPHOCYTES # (AUTO) 0.9 (1.0-3.2); LYMPHOCYTES % 26.9 % (18.0-39.1); MEAN CORPUSCULAR HEMOGLOBIN 31.3 pg (28-32); MEAN CORPUSCULAR HGB CONC 33.2 g/dL (31-35); MEAN CORPUSCULAR VOLUME 94.4 fL (81-99); MONOCYTES # (AUTO) 0.4 (0.2-0.8); MONOCYTES % 13.1 % (4.4-11.3); NEUTROPHILS # (AUTO) 1.9 (2.1-6.9); NEUTROPHILS % 56.4 % (38.7-80.0); RED BLOOD COUNT 2.14 x10e6/uL (3.6-5.1); RED CELL DISTRIBUTION WIDTH 16.6 % (11.7-14.4)
[2020-03-15 09:00] LABS: INR 2.66; PARTIAL THROMBOPLASTIN TIME 51.1 seconds (23.8-35.5); PROTHROMBIN TIME 30.2 seconds (11.9-14.5)
[2020-03-15 09:06] LABS: HEMOGLOBIN 6.7 g/dL (12.0-16.0)
[2020-03-15 09:07] LABS: HEMATOCRIT 20.2 % (34.2-44.1); PLATELET COUNT 36 x10e3/uL (140-360)
[2020-03-15] MEDS ORDERED: SODIUM CHLORIDE 0.9% 1000ML 1,000 ML IV STA ×2 (09:07→09:39)
[2020-03-15 09:11] LABS: ALBUMIN 2.7 g/dL (3.5-5.0); ALBUMIN/GLOBULIN RATIO 0.9 (0.8-2.0); ANION GAP 15.6 mmol/L (8-16); CALCIUM 7.7 mg/dL (8.4-10.2); CLARITY,URINE SL CLOUDY (CLEAR); COLOR,URINE ORANGE (YELLOW); CREATININE, SERUM 1.81 mg/dL (0.57-1.11); LEUKOCYTE ESTERASE ,URINE SMALL (NEGATIVE); POTASSIUM 3.6 mmol/L (3.5-5.1)
[2020-03-15 09:12] LABS: BILIRUBIN,URINE SMALL (NEGATIVE); KETONES,URINE TRACE (NEGATIVE); NITRITE,URINE POSITIVE (NEGATIVE); PROTEIN,URINE DIPSTICK 1+ (NEGATIVE); URINE UROBILINOGEN 0.2 mg/dL (0.2 - 1)
[2020-03-15] MEDS ORDERED: SODIUM CHLORIDE 0.9% 250ML 250 ML IV ONE (09:15)
[2020-03-15 09:17] LABS: CREATINE KINASE MB 2.5 ng/mL (0-5.0)
[2020-03-15 09:18] LABS: BACTERIA,URINE MANY /HPF; EPITHELIAL CELLS,URINE FEW /LPF; WBC,URINE (MAN) 21-50 /HPF (0-5)
[2020-03-15] MEDS ORDERED: MEROPENEM 1GM 100 ML IV ONE (09:30)
[2020-03-15 09:35] LABS: MAGNESIUM 1.1 MG/DL (1.3-2.1)
[2020-03-15 09:39] LABS: B-TYPE NATRIURETIC PEPTIDE2 470.1 pg/mL (0-100)
[2020-03-15] MEDS ORDERED: PANTOPRAZOLE 40 MG 10ML VIAL IV STA (09:39)
[2020-03-15] MEDS ORDERED: MAGNESIUM SULFATE 2GM/50ML 50 ML IV ONE (09:45)
--- NOTE | 2020-03-15 10:33 | Diagnostic Imaging Report ---
History:Altered mental status Comparison studies: None Technique: Axial images were obtained from the skull base to the vertex. Coronal and sagittal images reconstructed from the axial data. Dose modulation, iterative reconstruction, and/or weight based adjustment of the mA/kV was utilized to reduce the radiation dose to as low as reasonably achievable. Intravenous contrast: None Findings: Scalp/skull: No abnormalities. Extra-axial spaces: 6 mm thick, CSF-like, chronic bilateral frontoparietal subdural collections do not exert mass effect on the underlying brain (series 400, image 38). No masses. No additional fluid collections. Brain sulci: Appropriate for age Ventricles: Normal in size and configuration. No hydrocephalus. Parenchyma: Subtle hypodensities in the supratentorial white matter are nonspecific microvascular ischemic changes. Focal cortical and subcortical encephalomalacic changes in the right inferomedial parietal lobe (precuneus) is the result of an nonspecific vascular insult No masses, hemorrhage, acute or additional chronic cortical vascular insults. Sellar/suprasellar region: No abnormalities. Craniocervical junction: Patent foramen magnum. No Chiari one malformation. Incidental findings: * A stent is in place from the lacerum to the supraclinoid segment of the left ICA (series 401, image 31) * Subtle atherosclerotic calcifications in the right carotid siphon. * Nonspecific opacification of multiple right mastoid air cells. 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 Impression: 1. No acute intracranial abnormalities. 2. 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 3. Focal chronic nonspecific left parietal insult. 4. Incidental findings as described. Signed by: Dr. Devyn Gaitan M.D. on 03/15/2020 10:30 AM
--- NOTE | 2020-03-15 10:48 | Diagnostic Imaging Report ---
EXAMINATION: CHEST SINGLE (PORTABLE) INDICATION: Altered mental status. COMPARISON: Chest x-ray on 03/08/2020. FINDINGS: TUBES and LINES: None. LUNGS: Low lung volumes with bronchovascular crowding prominent interstitial lung markings. No focal consolidation. PLEURA: No pleural effusion or pneumothorax. HEART AND MEDIASTINUM: The heart is mildly enlarged. The mediastinal contours otherwise within normal limits BONES AND SOFT TISSUES: No acute osseous lesion. Soft tissues are unremarkable. UPPER ABDOMEN: No free air under the diaphragm. IMPRESSION: Cardiomegaly with mild interstitial pulmonary edema. Signed by: Kasey Benites MD on 03/15/2020 10:45 AM
--- NOTE | 2020-03-15 11:03 | Emergency Department Note ---
History of Present Illnes History of Present Illness Chief Complaint: General Medicine Complaints History of Present Illness This is a 64 year old female HX OF CIRRHOSIS/AMS. WAS RECENTLY DX WITH UTI, HAS BEEN GIVEN ABX, MENTAL STATUS CONTINUES TO DETERIORATE. PT BECOMING VIOLENT AND AGGRESSIVE WITH FAMILY. Historian: Patient, Family Member Arrival Mode: Car Rope Cutter Required: No Onset (how long ago): week(s) (1) Radiation: Reports non-radiation Severity: moderate Onset quality: gradual Timing of current episode: intermittent Progression: waxing and waning Chronicity: recurrent Context: Reports recent illness Relieving factors: none Exacerbating factors: none Associated symptoms: Reports denies other symptoms Treatments prior to arrival: none Past Medical/Family History Physician Review I have reviewed the patient's past medical and family history. Any updates have been documented here. Past Medical History Recent Fever: No Clinical Suspicion of Infectio: No New/Unexplained Change in Ment: Yes Past Medical History: UTI's, Liver Disease, Anemia Past Surgical History: Cholecysctectomy, Other Surgery: ANEURYSM Social History Smoking Cessation: Former smoker Counseling Performed: Yes Alcohol Use: None Any Illegal Drug Use: No TB Exposure/Symptoms: No Physically hurt or threatened: No Family History Family history of heart diseas: No Other Any Pre-Existing Lines (PICC,: No Review of Systems Review of Systems Constitutional: Reports no symptoms EENTM: Reports no symptoms Cardiovascular: Reports no symptoms Respiratory: Reports no symptoms Gastrointestinal: Reports no symptoms Genitourinary: Reports no symptoms Musculoskeletal: Reports no symptoms Integumentary: Reports no symptoms Neurological: Reports as per HPI Psychological: Reports no symptoms Endocrine: Reports no symptoms Hematological/Lymphatic: Reports no symptoms Physical Exam Related Data Allergies: Coded Allergies: No Known Allergies (Unverified , 03/08/20) Triage Vital Signs Vital Signs Date Time Temp Pulse Resp B/P (MAP) Pulse Ox O2 Delivery O2 Flow Rate FiO2 03/15/20 07:34 99.1 95 20 114/95 100 Room Air Vital signs reviewed: Yes Physical Exam CONSTITUTIONAL Constitutional: Present ill appearing HENT HENT: Present normocephalic, Present atraumatic, Present oropharynx clear/mois t, Present nose normal HENT L/R: Present left ext ear normal, Present right ext ear normal EYES Eyes: Reports PERRL, Reports scleral icterus NECK Neck: Present ROM normal PULMONARY Pulmonary: Present effort normal, Present breath sounds normal CARDIOVASCULAR Cardiovascular: Present regular rhythm, Present heart sounds normal, Present capillary refill normal, Present normal rate GASTROINTESTINAL Abdominal: Present soft, Present nontender, Present bowel sounds normal GENITOURINARY Genitourinary: Present exam deferred SKIN Skin: Present warm, Present dry MUSCULOSKELETAL Musculoskeletal: Present ROM normal NEUROLOGICAL Neurological: Present alert, Present no gross motor or sensory deficits, Present other (ORIENTED TO NAME/PLACE, NOT TIME, POSITIVE ASTERIXIS); Absent cranial nerve deficit PSYCHOLOGICAL Psychological: Present mood/affect normal, Present judgement normal Results Laboratory Result Diagram: 03/15/2018 03/15/20 0818 Laboratory Laboratory Tests Test 03/15/20 09:50 03/15/20 08:18 Stool Occult Blood Negative (NEGATIVE) White Blood Count 3.35 x10e3/uL (4.8-10.8) Red Blood Count 2.14 x10e6/uL (3.6-5.1) Hemoglobin 6.7 g/dL (12.0-16.0) Hematocrit 20.2 % (34.2-44.1) Mean Corpuscular Volume 94.4 fL (81-99) Mean Corpuscular Hemoglobin 31.3 pg (28-32) Mean Corpuscular Hemoglobin Concent 33.2 g/dL (31-35) Red Cell Distribution Width 16.6 % (11.7-14.4) Platelet Count 36 x10e3/uL (140-360) Neutrophils (%) (Auto) 56.4 % (38.7-80.0) Lymphocytes (%) (Auto) 26.9 % (18.0-39.1) Monocytes (%) (Auto) 13.1 % (4.4-11.3) Eosinophils (%) (Auto) 2.7 % (0.0-6.0) Basophils (%) (Auto) 0.6 % (0.0-1.0) Neutrophils # (Auto) 1.9 (2.1-6.9) Lymphocytes # (Auto) 0.9 (1.0-3.2) Monocytes # (Auto) 0.4 (0.2-0.8) Eosinophils # (Auto) 0.1 (0.0-0.4) Basophils # (Auto) 0.0 (0.0-0.1) Absolute Immature Granulocyte (auto 0.01 x10e3/uL (0-0.1) Prothrombin Time 30.2 seconds (11.9-14.5) Prothromb Time International Ratio 2.66 Activated Partial Thromboplast Time 51.1 seconds (23.8-35.5) Urine Color [place] (YELLOW) Urine Clarity Sl cloudy (CLEAR) Urine pH 5.5 (5 - 7) Urine Specific [place] >=1.030 (1.010-1.025) Urine Protein 1+ (NEGATIVE) Urine Glucose (UA) Negative (NEGATIVE) Urine Ketones Trace (NEGATIVE) Urine Blood Small (NEGATIVE) Urine Nitrite Positive (NEGATIVE) Urine Bilirubin Small (NEGATIVE) Urine Urobilinogen 0.2 mg/dL (0.2 - 1) Urine Leukocyte Esterase Small (NEGATIVE) Urine RBC 11-20 /HPF (0-5) Urine WBC 21-50 /HPF (0-5) Urine Epithelial Cells Few /LPF (NONE) Urine Bacteria Many /HPF (NONE) Sodium Level 137 mmol/L (136-145) Potassium Level 3.6 mmol/L (3.5-5.1) Chloride Level 100 mmol/L (98-107) Carbon Dioxide Level 25 mmol/L (22-29) Anion Gap 15.6 mmol/L (8-16) Blood Urea Nitrogen 12 mg/dL (7-26) Creatinine 1.81 mg/dL (0.57-1.11) Estimat Glomerular Filtration Rate 28 ML/MIN (60-) BUN/Creatinine Ratio 7 (6-25) Glucose Level 103 mg/dL (74-118) Lactic Acid Level 4.3 mmol/L (0.5-2.0) Calcium Level 7.7 mg/dL (8.4-10.2) Magnesium Level 1.1 MG/DL (1.3-2.1) Total Bilirubin 4.0 mg/dL (0.2-1.2) Aspartate Amino Transf (AST/SGOT) 63 IU/L (5-34) Alanine Aminotransferase (ALT/SGPT) 29 IU/L (0-55) Alkaline Phosphatase 113 IU/L (40-150) Ammonia 92 UG/DL (31-123) Creatine Kinase 42 IU/L (29-168) Creatine Kinase MB 2.50 ng/mL (0-5.0) Troponin I 0.039 ng/mL (0-0.300) B-Type Natriuretic Peptide 470.1 pg/mL (0-100) Total Protein 5.7 g/dL (6.5-8.1) Albumin 2.7 g/dL (3.5-5.0) Globulin 3.0 g/dL (2.3-3.5) Albumin/Globulin Ratio 0.9 (0.8-2.0) Amylase Level 33 U/L (25-125) Lipase 9 U/L (8-78) Lab results reviewed: Yes Imaging Imaging results reviewed: Yes Impressions Procedure: [id number] CT/CT BRAIN WO Exam Date: 03/15/20 Exam Time: 08 REPORT STATUS: Signed History:Altered mental status Comparison studies: None Technique: Axial images were obtained from the skull base to the vertex. Coronal and sagittal images reconstructed from the axial data. Dose modulation, iterative reconstruction, and/or weight based adjustment of the mA/kV was utilized to reduce the radiation dose to as low as reasonably achievable. Intravenous contrast: None Findings: Scalp/skull: No abnormalities. Extra-axial spaces: 6 mm thick, CSF-like, chronic bilateral frontoparietal subdural collections do not exert mass effect on the underlying brain (series 400, image 38). No masses. No additional fluid collections. Brain sulci: Appropriate for age Ventricles: Normal in size and configuration. No hydrocephalus. Parenchyma: Subtle hypodensities in the supratentorial white matter are nonspecific microvascular ischemic changes. Focal cortical and subcortical encephalomalacic changes in the right inferomedial parietal lobe (precuneus) is the result of an nonspecific vascular insult No masses, hemorrhage, acute or additional chronic cortical vascular insults. Sellar/suprasellar region: No abnormalities. Craniocervical junction: Patent foramen magnum. No Chiari one malformation. Incidental findings: * A stent is in place from the lacerum to the supraclinoid segment of the left ICA (series 401, image 31) * Subtle atherosclerotic calcifications in the right carotid siphon. * Nonspecific opacification of multiple right mastoid air cells. 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 Impression: 1. No acute intracranial abnormalities. 2. 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 3. Focal chronic nonspecific left parietal insult. 4. Incidental findings as described. Signed by: Dr. Devyn Gaitan M.D. on 03/15/2020 10:30 AM Procedures 12 Lead ECG Interpretation ECG Interpretation : ECG: ECG 1 Rope Cutter: Interpreted by ED physician Date: Mar 15, 2020 Time: 08:12 Rhythm: sinus rhythm Ectopy: atrial premature contractions Rate: normal (89) QRS axis: normal ST segments normal: Yes T waves normal: Yes Clinical Impression: abnormal ECG Additional Comments PROLONGED QT Critical Care Time Total Critical Care Time (min): 42 Critical care time exclusive o: separately billable procedures Critcal care necessary due to: sepsis Critcal care time spent by me: discussion w consultants, discussion w primary provider, evaluation patient response to tx, examination of patient, order/perform tx or interventions, order/review laboratory studies, order/review radiographic studies, re-evaluation of patient condition Assessment & Plan Medical Decision Making MDM RECENT UTI, NOW WITH WORSE AMS/CONFUSION BUT ALSO HAS HX OF CIRRHOSIS & HEPATIC ENCEPH - CHECK CBC, CHEM, UA/CX, LACTIC, BLOOD CX'S, CXR, CT BRAIN, ECG, CARDIACS, NH3 - R/O SEPSIS, UTI, PNEUMONIA, CEREBRAL BLEED/MASS, HEPATIC ENCEPHALOPATHY Reassessment Reassessment SEPTIC SHOCK LACTIC 4.3 RETURNED AT 0906 - IVF'S 30 CC/KG, LIKELY SOURCE URINE - MERREM ORDERED I PERFORMED A BEDSIDE VOLUME REASSESSMENT I SPOKE WITH DR PUENTES FOR ADMISSION Assessment & Plan Final Impression: (1) Septic shock (2) UTI (urinary tract infection) (3) Altered mental status (4) Hepatic encephalopathy (5) Cirrhosis (6) Hypomagnesemia (7) Anemia (8) Renal insufficiency (9) Urinary tract infection Depart Disposition: ADMITTED Last Vital Signs Date Time Temp Pulse Resp B/P (MAP) Pulse Ox O2 Delivery O2 Flow Rate FiO2 03/15/20 09:34 98.6 87 23 113/50 100 Room Air Home Meds Reported Medications Lactulose (LACTULOSE) 20 Gm/30 Ml Solution, 15 ML PO TID, EACH 03/08/20 Levetiracetam (LEVETIRACETAM) 500 Mg Tablet, 500 MG PO BID 03/08/20 Spironolactone (SPIRONOLACTONE) 25 Mg Tablet, 25 MG PO DAILY, #60 TAB 03/08/20 Thiamine Hcl (VITAMIN B-1) 100 Mg Tablet, 100 MG PO DAILY 03/08/20 Midodrine Hcl (MIDODRINE HCL) 5 Mg Tablet, 10 MG PO TID, TAB 03/08/20 Furosemide (FUROSEMIDE) 40 Mg Tablet, 40 MG PO Daily, #30 TAB 03/08/20 Pantoprazole Sodium* (PROTONIX) 40 Mg Tablet.dr, 40 MG PO DAILY, TAB 03/08/20 [folic acid] No Conflict Check, 1 MG PO DAILY 03/08/20 Rifaximin (XIFAXAN) 550 Mg Tablet, 550 MG PO DAILY 03/08/20 Ferrous Sulfate (FERROUS SULFATE) 325 Mg Tablet, 325 MG PO DAILY 03/08/20 Medications in the ED Sodium Chloride 1,000 ml @ 0 mls/hr Q0M STAT IV Last administered on 03/15/20at 09:33; Admin Dose 999 MLS/HR; Start 03/15/20 at 09:07; Stop 03/15/20 at 09:09; Status DC Sodium Chloride 250 ml @ 0 mls/hr ONCE ONCE IV ; Start 03/15/20 at 09:15; Stop 03/15/20 at 09:16; Status DC Furosemide 20 mg UD PRN IV SHORTNESS OF BREATH; Start 03/15/20 at 09:15; Stop 04/14/20 at 09:14 Meropenem 100 ml @ 100 mls/hr NOW ONCE IV Last administered on 03/15/20at 09:33; Admin Dose 100 MLS/HR; Start 03/15/20 at 09:30; Stop 03/15/20 at 10:29; Status DC Magnesium Sulfate 50 ml @ 25 mls/hr ONCE ONCE IV ; Start 03/15/20 at 09:45; Stop 03/15/20 at 11:44 Pantoprazole Sodium 40 mg ONCE STAT IV Last administered on 03/15/20at 10:03; Admin Dose 40 MG; Start 03/15/20 at 09:39; Stop 03/15/20 at 09:45; Status DC Sodium Chloride 1,000 ml @ 0 mls/hr Q0M STAT IV ; Start 03/15/20 at 09:39; Stop 03/15/20 at 09:45; Status DC CARLITOS HARPER MD Mar 15, 2020 11:03
[2020-03-15] MEDS ORDERED: ONDANSETRON HCL INJ 2MG/ML 2ML 2 MG/ML VIAL IV PRN ×2 (11:15→13:45)
--- OUTSIDE RECORDS SUMMARY | 2020-03-15 11:22 | XMS REPORT | Continuity of Care Document ---
Author Author [employer]DIANE [employer] 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 Phone [facility] [employer] Unavailable Un available Problems Problem Status Onset Date Classification Date Reported Comments Source AMS Active 0 02/15/2020 [facility] ALTERED MENTAL STATUS, ACUTE HEPATIC ENC Active 02/15/2020 [facility] Encounter for screening mammogram for ma lignant neoplasm of breast 11/29/2017 02/23/2018 [facility] ROUTINE SCREENING LAST MMG W/ Active 11/16/2017 [facility] DX: I82.401=ACUTE EMBOLISM AND THROMBOSI Active 11/16/2017 [facility] Z12.11 Active 10/11/2016 [facility] UNK Active 0 10/11/2016 [facility] ALTERED MENTAL STATUS Active 09/18/2016 [facility] Discharge Diagnosis: Palpitations 04/29/2016 05/02/2016 [facility] RAPID HEARTRATE Active 04/28/2016 [facility] LARGE LEFT CAVERNOUS ANEURYSM Active 09/16/2011 [facility] Anxiety (finding) Active Problem 02/28/2020 [facility] Cerebrovascular accident (disorder) Active Problem [facility] Cirrhosis of liver (disorder) Active Problem [facility] History of cholecystectomy (situation) Active Problem [facility] Hypertensive disorder, systemic arterial (disorder) Active Problem 02/28/2020 [facility] Seizure (finding) Active Problem 02/28/2020 [facility] History of cholecystectomy Act aristeo Problem 07/2012 [facility] HTN - Hypertension Active Problem 03/25/2012 [facility] NONRUPT CEREBRAL ANEURYM Active [facility] ALTERED MENTAL STATUS, UNSPECIFIED Active [facility] ACUTE AND SUBACUTE HEPATIC FAILURE WITHO Active [facility] Medications Medication Details Route Status Patient Instructions Ordering Provider Order Date Source Levetiracetam Notes: (Same as: Keppra) No Longer Active 02/27/2020 [facility] pantoprazole 40 MG Enteric Coated Tablet [Protonix] 40 mg = 1 tab, PO, Daily, # 30 tab, 0 Refill(s), Pharmacy: [facility] #[id number], 152.4, cm, 02/15/20 22:51:00 CDT, Height, 59.091, kg, 02/15/20 22:51:00 CDT, Weight Active 02/26/2020 [facility] thiamine 100 mg oral tablet 10 0 mg = 1 tab, PO, Daily, X 30 day, # 30 tab, 0 Refill(s), Pharmacy: [facility] #[id number], 152.4, cm, 02/15/20 22:51:00 CDT, Height, 59.091, kg, 02/15/20 22:51:00 CDT, Weight Active 02/26/2020 [facility] midodrine 5 mg oral tablet 10 mg = 2 tab, PO, TID, # 180 tab, 0 Refill(s), Pharmacy: [facility] #[id number], 152.4, cm, 02/15/20 22:51:00 CDT, Height, 59.091, kg, 02/15/20 22:51:00 CDT, Weight Active 02/26/2020 [facility] Potassium Chloride Notes: ([facility] e as: K-Dur 20) "Do Not Crush" Give with food and full glass of water For patients unable to swallow tablet, dissolve in one half glass of water. Allow about 2 minutes for the tab lets to disintegrate. Stir before giving to prepare slurry and administer. Please exclude Patients with feeding tube less than 14 Uzbek (Dobhoff, J-tube etc) and pediatric and patients. No Longer Active 02/26/2020 [facility] potassium phosphate-sodium phosphate 250 mg-280 mg-160 mg oral powder for reconstitution Notes: (Same as: Phos-NaK) Each 1.5 gm pkt has 250mg phosphorous. Mix w/2.5oz water and stir. No Longer Active 02/26/2020 [facility] potassium phosphate Notes: ([facility] as: K Phosphate.) Do not infuse phosphorous concurrently in the same line as TPN or IVF that contains calcium. For double lumen central lines, phosphorous may be infused in a separate lumen from TPN. 1 mMol phoshate has 1.47 mEq potassium Infuse over 4 hours No Longer Active 02/26/2020 [facility] sodium phosphate Notes: Infuse over 4 hour. Do not infuse phosphorous concurrently in the same line as TPN or IVF that contains calcium. For double lumen central lines, phosphorous may be infused in a separate lumen from TPN. No Longer Active 02/26/2020 [facility] Magnesium Sulfate Notes: WASTE : F/P - Sink; E - Municipal Trash Bin No Longer Active 02/26/2020 [facility] Magnesium Oxide Notes: (Same a s: Mag-Ox 400) Magnesium oxide [id number] elemental magnesium Dose=____mg magnesium oxide (___mg elemental magnesium) No Longer Active 02/26/2020 [facility] Calcium Gluconate Notes: WASTE : F/P - Sink; E - Municipal Trash Bin No Longer Active 02/26/2020 [facility] Potassium Chloride Notes: ([facility] e as: KCL) Infuse no faster than 10 mEq/hr if given peripherally. No Longer Active 02/25/2020 [facility] sodium phosphate Notes: Infuse over 4 hour. Do not infuse phosphorous concurrently in the same line as TPN or IVF that contains calcium. For double lumen central lines, phosphorous may be infused in a separate lumen from TPN. No Longer Active 02/25/2020 [facility] potassium phosphate Notes: (Sa me as: K Phosphate.) Do not infuse phosphorous concurrently in the same line as TPN or IVF that contains calcium. For double lumen central lines, phosphorous may be infused in a separate lumen from TPN. 1 mMol phoshate has 1.47 mEq potassium Infuse over 4 hours No Longer Active 02/25/2020 [facility] potassium phosphate-sodium phosphate 250 mg-280 mg-160 mg oral powder for reconstitution Notes: (Same as: Phos-NaK) Each 1.5 gm pkt has 250mg phosphorous. Mix w/2.5oz water and stir. No Longer Active 02/25/2020 [facility] Magnesium Sulfate Notes: WASTE : F/P - Sink; E - Municipal Trash Bin No Longer Active 02/25/2020 [facility] Magnesium Oxide Notes: (Same a s: Mag-Ox 400) Magnesium oxide [id number] elemental magnesium Dose=____mg magnesium oxide (___mg elemental magnesium) No Longer Active 02/25/2020 [facility] Calcium Gluconate Notes: Conta ins: calcium gluconate 20mg/mL NaCl 0.67% 50mL WASTE: F/P - Sink; E - Municipal Trash Bin No Longer Active 02/25/2020 [facility] Calcium Carbonate 500 MG Chewable Tablet Notes: (Same As: Tumadithya) Calcium Carbonate 500 mg = 200 mg elemental calcium Dose = mg calcium carbonate ( mg elemental calcium) No Longer Active 02/25/2020 [facility] D5W 500 mL 500 mL, Rate: 100 m l/hr, Infuse over: 5 hr, Route: IV, Dosing Weight 59.091 kg, Total Volume: 500, Start date: 02/25/20 6:13:00 CDT, Duration: 30 day, Stop date: 03/26/20 6:12:00 CDT, 1.6, m2, 0 No Longer Active 02/25/2020 [facility] potassium phosphate Notes: (Sa me as: K Phosphate.) Do not infuse phosphorous concurrently in the same line as TPN or IVF that contains calcium. For double lumen central lines, phosphorous may be infused in a separate lumen from TPN. 1 mMol phoshate has 1.47 mEq potassium Infuse over 4 hours Inactive 02/25/2020 [facility] Magnesium Sulfate Notes: WASTE : F/P - Sink; E - Municipal Trash Bin Inactive 02/25/2020 [facility] potassium phosphate Notes: (Sa me as: K Phosphate.) Do not infuse phosphorous concurrently in the same line as TPN or IVF that contains calcium. For double lumen central lines, phosphorous may be infused in a separate lumen from TPN. 1 mMol phoshate has 1.47 mEq potassium Infuse over 4 hours Inactive 02/23/2020 [facility] Lactulose 667 MG/ML Oral Solution Notes: (Same as:Chronulac) No Longer Active 02/21/2020 [facility] Lactulose 667 MG/ML Oral Solution Notes: (Same as:Chronulac) Inactive 02/21/2020 [facility] Metronidazole Notes: (Same as: Flagyl) Avoid alcohol. No Longer Active 02/20/2020 [facility] Sodium Chloride 0.9% IV 250 mL + octreot david 1,250 microgram 250 mL, Rate: 10 ml/hr, Infuse over: 25 hr, Route: IV, Dosing Weight 59.091 kg, Total Volume: 250, Start date: 02/19/20 7:00:00 CDT, Duration: 30 day, Stop date: 03/20/20 6:59:00 CDT, 1.6, m2 Inactive 02/19/2020 [facility] octreotide 1,250 microgram + Sodium Chlo ride 0.9% IV 248.75 mL 248.75 mL, Rate: 10 ml/hr, Infuse over: 25 hr, Route: IV, Dosing Weight 59.091 kg, Total Volume: 250, Start date: 02/19/20 6:50:00 CDT, Duration: 30 day, Stop date: 03/20/20 6:49:00 CDT, 1.6, m2, 0 No Longer Active 02/19/2020 [facility] pantoprazole additive 80 mg + Sodium Chl oride 0.9% IV 100 mL Notes: For IV push reconstitute with 10 ml 0.9% sodium chloride and push over 2 minutes. (Same as: Protonix) No Longer Active 02/19/2020 [facility] Thiamine Notes: (Same As: Chloe min B1) No Longer Active 02/18/2020 [facility] Vitamin K 1 Notes: Same as: Aminata Chaney Mephyton Combine FILTERED phytonadione injection (total 50 mg/5 mL)with Simple Syrup (45mL) in natalee bottle. Shake well prior to dispensing. Expiration: 90 days at temp No Longer Active 02/18/2020 [facility] Plavix Notes: (Same As: Plavix) No Longer Active 02/18/2020 [facility] Folic Acid Notes: (Same as: Fo lvite) No Longer Active 02/18/2020 [facility] Vasopressin (ALF) Notes: (Same As: Pitressin, Vasostrict) No Longer Active 02/17/2020 [facility] albumin human 25% intravenous solution Notes: Lot #: Mfg: (Same as: Plasbumin-25) "blood product derivative" WASTE: F/P - Red; E -Red MEDICATION WASTE Product Size: 25 gm Product Wasted: ___ gm No Longer Active 02/17/2020 [facility] Lactulose 667 MG/ML Oral Solution Notes: (Same as:Chronulac) No Longer Active 02/17/2020 [facility] Rocephin + sterile water 10 mL Notes: (Same As: Rocephin). Use with 100 mL NS and infuse over 30 min MEDICATION WASTE Product Size: 1000 mg Product Wasted: ___ mg No Longer Active 02/17/2020 [facility] Lactulose 667 MG/ML Oral Solution Notes: (Same as:Chronulac) Inactive 02/17/2020 [facility] rifaximin Notes: Same as: Xifa jones No Longer Active 02/17/2020 [facility] XIFAXAN Notes: Same as: Xifaxan Inactive 02/16/2020 [facility] riFAXimin 550 mg oral tablet 5 50 mg = 1 tab, PO, BID Active 02/16/2020 [facility] pantoprazole 40 MG Enteric Coated Tablet [Protonix] 40 mg = 1 tab, PO, Daily No Longe r Active 02/16/2020 [facility] Furosemide 40 MG Oral Tablet 4 0 mg = 1 tab, PO, Daily No Longer Active 02/16/2020 [facility] Lactulose 667 MG/ML Oral Solution Notes: (Same as:Chronulac) Inactive 02/16/2020 [facility] Midodrine Notes: (Same as:Proa matine) No Longer Active 02/16/2020 [facility] NS 1,000 mL 1,000 mL, Rate: 50 ml/hr, Infuse over: 20 hr, Route: IV, Dosing Weight 59.091 kg, Total Volume: 1,000, Start date: 02/16/20 9:28:00 CDT, Duration: 30 day, Stop date: 03/17/20 9:28:00 CDT, 1.6, m2, 0 No Longer Active 02/16/2020 [facility] Keppra Notes: Same as Keppra Mix with 100 mL NS, LR or D5W MEDICATION WASTE Product Size: 500 mg Product Wasted: ___ mg No Longer Active 02/16/2020 [facility] Dextrose 50% Syringe (D50W) 12 .5 gm, 25 mL, Route: IVP, Drug Form: INJ, Dosing Weight 59.091, kg, PRN, PRN Blood Glucose Results, Start date: 02/16/20 6:04:00 CDT, Duration: 30 day, Stop date: 03/17/20 6:03:00 CDT, 0 No Longer Active 02/16/2020 [facility] Glucagon 1 mg, Route: IM, Drug form: PDR/INJ, PRN, Dosing Weight 59.091, kg, PRN Blood Glucose Results, Start date: 02/16/20 6:04:00 CDT, Duration: 30 day, Stop date: 03/17/20 6:03:00 CDT, 0 No Longer Active 02/16/2020 [facility] pantoprazole additive 80 mg + Sodium Chl oride 0.9% IV 100 mL Notes: For IV push reconstitute with 10 ml 0.9% sodium chloride and push over 2 minutes. (Same as: Protonix) No Longer Active 02/16/2020 [facility] Norepinephrine Notes: Same as: Levophed. Administer by either central venous catheter or peripherally-inserted central catheter (PICC) line. Concentration: 0.032 mg / mL No Longer Active 02/16/2020 [facility] Norepinephrine Notes: Same as: Levophed. Administer by either central venous catheter or peripherally-inserted central catheter (PICC) line. Concentration: 0.032 mg / mL Inactive 02/16/2020 [facility] Sodium Chloride 0.9% (Bolus) IV 1,000 mL, 1000 ml/hr, Infuse Over: 1 hr, Route: IV, 1,000, Drug form: INJ, ONCE, Priority: STAT, Dosing Weight 59.091 kg, Start date: 02/16/20 3:13:00 CDT, Stop date: 02/16/20 3:13:00 CDT, 0 Inactive 02/16/2020 [facility] Dextrose 50% Syringe (D50W) 12 .5 gm, 25 mL, Route: IVP, Drug Form: INJ, Dosing Weight 59.091, kg, PRN, PRN Blood Glucose Results, Start date: 02/16/20 2:35:00 CDT, Duration: 30 day, Stop date: 03/17/20 2:34:00 CDT, 0 Inactive 02/16/2020 [facility] Glucagon 1 mg, Route: IM, Drug form: PDR/INJ, PRN, Dosing Weight 59.091, kg, PRN Blood Glucose Results, Start date: 02/16/20 2:35:00 CDT, Duration: 30 day, Stop date: 03/17/20 2:34:00 CDT, 0 Inactive 02/16/2020 [facility] Ondansetron Notes: (Same as: Julian hutton) MEDICATION WASTE Product Size: 4 mg Product Wasted: ___ mg No Longer Active 02/16/2020 [facility] Melatonin Notes: (Same as: Rachael atonin) Inactive 02/16/2020 [facility] Acetaminophen Notes: Do not ex ceed 4 gm/day. (Same as: Tylenol) No Longer Active 02/16/2020 [facility] Lactated Ringers IV 1,000 mL 1 ,000 mL, Rate: 75 ml/hr, Infuse over: 13.3 hr, Route: IV, Dosing Weight 59.091 kg, Total Volume: 1,000, Start date: 02/16/20 2:35:00 CDT, Duration: 30 day, Stop date: 03/17/20 2:34:00 CDT, 1.6, m2, 0 Inactive 02/16/2020 [facility] Saline Flush 0.9% Notes: (Same as: BD Posiflush) No Longer Active 02/16/2020 [facility] Ceftriaxone Notes: (Same As: Esperanza cota). Use with 100 mL NS and infuse over 30 min MEDICATION WASTE Product Size: 1000 mg Product Wasted: ___ mg Inactive 02/16/2020 [facility] Hydralazine Notes: (Same as: A presoline) Push over 5 minutes Inactive 02/16/2020 [facility] Lactulose Notes: Lactulose 300 ml, Water for Irrigation 700ml - total volume = 1000ml Inactive 02/16/2020 [facility] Hydralazine 10 mg, Route: IVP, ONCE, Dosing Weight 59.091, kg, Priority: STAT, Start date: 02/16/20 1:12:00 CDT, Stop date: 02/16/20 1:12:00 CDT Inactive 02/16/2020 [facility] Saline Flush 0.9% Notes: (Same as: BD Posiflush) No Longer Active 02/16/2020 [facility] Sodium Chloride 0.154 MEQ/ML Injectable Solution 1,000 mL, Rate: 25 ml/hr, Infuse over: 40 hr, Route: IV, Dosing Weight 79.347 kg, Total Volume: 1,000, Start date: 10/19/16 8:55:00 EPIDEMIOLOGY INTERN, Duration: 1 day, Stop date: 10/20/16 8:54:00 EPIDEMIOLOGY INTERN Inactive 10/19/2016 [facility] Lactulose 667 MG/ML Oral Solution [Generlac] 0 Refill(s) Active 10/18/2016 [facility] spironolactone 50 mg oral tablet 50 mg = 1 tab, PO, Daily, # 30 tab, 1 Refill(s) Active 10/18/2016 [facility] Streptococcus pneumoniae serotype 1 caps ular antigen diphtheria [id number] protein conjugate vaccine / Streptococcus pneumoniae serotype 14 capsular antigen diphtheria [id number] protein conjugate vaccine / Streptococcus pneumoniae serotype 18C capsular antigen d Notes: Lightly roll vial (DO NOT SHAKE) before administration. (Same as: Prevnar 13) Inactive 09/21/2016 [facility] ferrous sulfate 325 mg oral enteric coated tablet 325 mg = 1 tab, PO, Daily, # 30 tab, 0 Refill(s) Active 09/21/2016 [facility] pantoprazole 40 mg oral enteric coated tablet 40 mg = 1 tab, PO, Before Dinner, # 30 tab, 0 Refill(s) Active 09/21/2016 [facility] levofloxacin 250 mg oral tablet 500 mg = 2 tab, PO, [id number], X 5 day, # 10 tab, 0 Refill(s) Active 09/21/2016 [facility] Lactulose 667 MG/ML Oral Solution 10 gm = 15 mL, PO, BID, X 14 day, # 420 mL, 0 Refill(s) Active 09/21/2016 [facility] Levetiracetam 500 MG Oral Tablet [Keppra] 500 mg = 1 tab, PO, Q12H, # 60 tab, 0 Refill(s) Active 09/21/2016 [facility] Folic Acid 1 MG Oral Tablet 1 mg = 1 tab, PO, Daily, # 30 tab, 0 Refill(s) Active 09/21/2016 [facility] Sodium Chloride 0.154 MEQ/ML Injectable Solution 1,000 mL, Rate: 25 ml/hr, Infuse over: 40 hr, Route: IV, Dosing Weight 81.818 kg, Total Volume: 1,000, Start date: 09/21/16 7:47:00 EPIDEMIOLOGY INTERN, Duration: 1 day, Stop date: 09/22/16 7:46:00 EPIDEMIOLOGY INTERN Inactive 09/21/2016 [facility] Levetiracetam 500 MG Oral Tablet [Keppra] Notes: (Same as:Ursulara) No Longer Active 09/21/2016 [facility] Lactulose 667 MG/ML Oral Solution Notes: (Same as:Chronulac) No Longer Active 09/20/2016 [facility] Levetiracetam Notes: Same as eppra Mix with 100 mL NS, LR or D5W MEDICATION WASTE Product Size: 500 mg Product Wasted: ___ mg Inactive 09/20/2016 [facility] Lisinopril Notes: (Same as: Pr inivil, Zestril) No Longer Active 09/20/2016 [facility] Folic Acid Notes: (Same as: Fo lvite) No Longer Active 09/20/2016 [facility] Protonix Notes: Tablet should not be chewed or crushed. (Same as: Protonix) No Longer Active 09/19/2016 [facility] Levaquin Notes: Do not give w/ antacids, dairy pdt & minerals Take 1 hr before or 2 hr after dairy pdt (Same as:Levaquin) No Longer Active 09/19/2016 [facility] Plavix Notes: (Same As: Plavix) No Longer Active 09/19/2016 [facility] Saline Flush 0.9% Notes: (Same as: BD Posiflush) No Longer Active 09/19/2016 [facility] Ondansetron Notes: (Same as: Julian hutton) MEDICATION WASTE Product Size: 4 mg Product Wasted: ___ mg No Longer Active 09/19/2016 [facility] Sodium Chloride 0.154 MEQ/ML Injectable Solution 1,000 mL, Rate: 75 ml/hr, Infuse over: 13.3 hr, Route: IV, Dosing Weight 81.818 kg, Total Volume: 1,000, Start date: 09/18/16 20:32:00 EPIDEMIOLOGY INTERN, Duration: 30 day, Stop date: 10/18/16 20:31:00 EPIDEMIOLOGY INTERN No Longer Active 09/19/2016 [facility] clopidogrel 75 MG Oral Tablet [Plavix] 75 mg = 1 tab, PO, Daily, 0 Refill(s) Active 09/19/2016 [facility] lisinopril 5 mg oral tablet 5 mg = 1 tab, PO, Daily, 0 Refill(s) Active 09/19/2016 [facility] Sodium Chloride 0.154 MEQ/ML Injectable Solution 1,000 mL, Infuse Over: 1 hr, Route: IV, ONCE, Priority: STAT, Dosing Weight 81.818 kg, Start date: 09/18/16 17:53:00 EPIDEMIOLOGY INTERN, Duration: 1 doses or times, Stop date: 09/18/16 17:53:00 EPIDEMIOLOGY INTERN Inactive 09/18/2016 [facility] Versed 5 mg, Route: IVP, ONCE, Dosing Weight 81.818, kg, Priority: STAT, Start date: 09/18/16 17:35:00 EPIDEMIOLOGY INTERN, Stop date: 09/18/16 17:35:00 EPIDEMIOLOGY INTERN Inactive 09/18/2016 [facility] Sodium Chloride 0.154 MEQ/ML Injectable Solution 1,000 mL, 1,000 ml/hr, Infuse Over: 1 hr, Route: IV, ONCE, Priority: STAT, Dosing Weight 81.818 kg, Start date: 09/18/16 14:37:00 EPIDEMIOLOGY INTERN, Duration: 1 doses or times, Stop date: 09/18/16 14:37:00 EPIDEMIOLOGY INTERN Inactive 09/18/2016 [facility] Sulfamethoxazole 800 MG / Trimethoprim 1 60 MG Oral Tablet [Bactrim] 1 tab, PO, BID, X 7 day, # 14 tab, 0 Ref ill(s) Active 04/29/2016 [facility] Alprazolam 0.5 MG Oral Tablet [Xanax] 0.5 mg = 1 tab, PO, Q8H, PRN Anxiety, X 7 day, # 21 tab, 0 Refill(s) Active 04/29/2016 [facility] Sodium Chloride 0.154 MEQ/ML Injectable Solution 1,000 mL, 2,000 ml/hr, Infuse Over: 30 minutes, Route: IV, 1,000, Drug form: INJ, ONCE, Priority: STAT, Dosing Weight 81.818 kg, Start date: 04/29/16 1:01:00 CDT, Duration: 1 doses or times, Stop date: 04/29/16 1:01:00 CDT Inactive 04/29/2016 [facility] Saline Flush 0.9% Notes: (Same as: BD Posiflush) No Longer Active 04/29/2016 [facility] heparin 5,000 unit, 1 mL, Rout e: SUB-Q, Drug form: INJ, Q12H, Start date: 03/23/12 16:00:00, Duration: 30 day, Stop date: 04/22/12 4:00:00 SUB-Q No Longer Active [place] 03/23/2012 [facility] aspirin 325 mg tablet 325 mg, 1 tab, Route: PO, Drug form: TAB, Daily, Start date: 03/23/12 9:00:00, Duration: 30 day, Stop date: 04/21/12 9:00:00 PO No Longer Active [place] 03/23/2012 [facility] nter Plavix 75 mg, 1 tab, Route: PO , Drug form: TAB, Daily, Start date: 03/23/12 9:00:00, Duration: 30 day, Stop date: 04/21/12 9:00:00 PO No Longer Active [place] 05/2012 [facility] dexamethasone 2 mg oral tablet See Instructions, [...] 2 days, then stop Active [place] 05/2012 [facility] Pepcid 20 mg oral tablet 20 mg , 1 tab, PO, BID, 24 tab, Substitution Allowed PO Active [place] 03/23/2012 [facility] Plavix 75 mg oral tablet 75 mg , 1 tab, PO, Daily, 30 tab, Substitution Allowed, TAB PO Active [facility] chantal 03/23/2012 [facility] aspirin 325 mg tablet 325 mg, 1 tab, PO, Daily, 30 tab, Substitution Allowed, TAB PO Active [place] 03/23/2012 [facility] nter Vicodin ES 7.5/750 oral tablet 1-2 tab, PO, Q4-6H, PRN, 30 tab, Pain, Substitution Allowed, Soft Stop, TAB PO Active [place] 03/23/2012 [facility] dexamethasone 4 mg, 1 mL, Rout e: IV, Drug form: INJ, Q6H, Start date: 03/23/12 6:00:00, Duration: 30 day, Stop date: 04/22/12 0:00:00 IV No Longer Active Day 012 [facility] potassium phosphate + Sodium Chloride 0.9% IV 250 mL 18 mmol, 6 mL, Route: IV, ONCE, Start date: 03/23/12 3:30:00, Stop date: 03/23/12 3:30:00 IV No Longer Active [place] 03/23/2012 [facility] magnesium sulfate 2 gm, 50 mL, Route: IVPB, Drug form: INJ, ONCE, Start date: 03/23/12 3:00:00, Stop date: 03/23/12 3:00:00 IVPB No Longer Active Day 012 [facility] senna 8.6 mg oral tablet 8.6 m g, 1 tab, Route: PO, Drug Form: TAB, Bedtime, Start date: 03/22/12 21:00:00, Duration: 30 day, Stop date: 04/20/12 21:00:00 PO No Longer Active [place] 03/23/2012 [facility] nter hydrALAZINE 20 mg, 1 mL, Route : IV, Drug form: INJ, Q2H, PRN Elevated BP, Start date: 03/22/12 15:18:00, Duration: 30 day, Stop date: 04/21/12 15:17:00 IV No Longer Active [place] 03/22/2012 [facility] nter insulin regular human recombinant 100 un its/mL injectable solution 7 unit, 0.07 mL, Route: SUB-Q, Drug form : SOLN, PRN, PRN Abnormal Lab Result, Start date: 03/22/12 14:59:00, Duration: 30 day, Stop date: 04/21/12 14:58:00 SUB-Q No Longer Active [place] 03/22/2012 [facility] nter Dextrose 50% Syringe 6.25 gm, 12.5 mL, Route: IVP, Drug Form: INJ, PRN, PRN Abnormal Lab Result, Start date: 03/22/12 14:59:00, Duration: 30 day, Stop date: 04/21/12 14:58:00 IVP No Longer Active [place] 03/22/2012 [facility] labetalol 10 mg, 2 mL, Route: IVP, Drug form: INJ, Q1H, PRN Hypertension, Start date: 03/22/12 14:28:00, Duration: 30 day, Stop date: 04/21/12 13:28:00 IVP No Longer Active [place] 03/22/2012 [facility] nter senna 8.6 mg oral tablet 1 tab , Route: PO, Drug Form: TAB, Bedtime, PRN Constipation, Start date: 03/22/12 14:11:00, Duration: 30 day, Stop date: 04/21/12 14:10:00 PO No Longer Active [place] 03/22/2012 [facility] nter hydromorphone 0.5 mg, 0.25 mL, Route: IVP, Drug form: INJ, Q5Min, PRN Pain Score 4-6, Start date: 03/22/12 12:51:00, Duration: 5 doses or times, Stop date: 03/23/12 0:00:00 IVP No Longer Active [place] 03/22/2012 [facility] ondansetron 4 mg, 2 mL, Route: IVP, Drug form: INJ, ONCE, PRN Nausea & Vomiting, Start date: 03/22/12 12:51:00 IVP No Longer Active [place] 03/22/2012 [facility] flumazenil 0.2 mg, 2 mL, Route : IVP, Drug form: INJ, PRN, PRN Benzodiazepine Reversal, Initial dose, Start date: 03/22/12 12:51:00, Duration: 30 day, Stop date: 04/21/12 12:50:00 IVP No Longer Active [place] 03/22/2012 [facility] naloxone 0.04 mg, 0.1 mL, Rout e: IVP, Drug form: INJ, Q2MIN, PRN Narcotic Reversal, Start date: 03/22/12 12:51:00, Duration: 8 doses or times, Stop date: 03/23/12 0:00:00 IVP No Longer Active [place] 03/22/2012 [facility] Plavix 300 mg, 1 tab, Route: P O, Drug form: TAB, ONCE, Priority: NOW, Start date: 03/22/12 12:39:00, Duration: 1 doses or times, Stop date: 03/22/12 12:39:00 PO No Longer Active [place] 03/22/2012 [facility] nter metoclopramide 10 mg, 2 mL, Ro araceli: IV, Drug form: INJ, ONCE, Priority: NOW, Start date: 03/22/12 9:59:00, Stop date: 03/22/12 9:59:00 IV No Longer Active Jeffery 04/2012 [facility] heparin 5,000 unit, 1 mL, Rout e: SUB-Q, Drug form: INJ, Q12H, Start date: 03/22/12 9:00:00, Duration: 30 day, Stop date: 04/20/12 21:00:00 SUB-Q No Longer Active Nava 03/22/2012 [facility] nter Saline Flush 0.9% 5 ml, Route: IVP, Drug Form: INJ, Q12H, Start date: 03/22/12 9:00:00, Duration: 30 day, Stop date: 04/20/12 21:00:00 IVP No Longer Active Yessi 03/22/2012 [facility] docusate sodium 100 mg oral capsule 100 mg, 1 cap, Route: PO, Drug form: CAP, Q12H, Start date: 03/22/12 9:00:00, Duration: 30 day, Stop date: 04/20/12 21:00:00 PO No Longer Active Yessi 03/22/2012 [facility] nter lisinopril 20 mg, 1 tab, Route : PO, Drug form: TAB, Daily, Start date: 03/22/12 9:00:00, Duration: 30 day, Stop date: 04/20/12 9:00:00 PO No Longer Active Yessi 03/22/2012 [facility] Plavix 75 mg, 1 tab, Route: PO , Drug form: TAB, Daily, Start date: 03/22/12 9:00:00, Duration: 30 day, Stop date: 04/20/12 9:00:00 PO No Longer Active Nava 04/2012 [facility] aspirin 325 mg tablet 325 mg, 1 tab, Route: PO, Drug form: TAB, Daily, Start date: 03/22/12 9:00:00, Duration: 30 day, Stop date: 04/20/12 9:00:00 PO No Longer Active Nava 03/22/2012 [facility] nter Saline Flush 0.9% 5 ml, Route: IVP, Drug Form: INJ, PRN, PRN Line Flush, Start date: 03/22/12 8:28:00, Duration: 30 day, Stop date: 04/21/12 8:27:00 IVP No Longer Active Yessi 03/22/2012 [facility] nter Sodium Chloride 0.9% IV 1,000 mL 1,000 mL, Rate: 50 ml/hr, Infuse over: 20 hr, Route: IV, Dosing Weight 90.909 kg, Total Volume: 1,000, Start date: 03/22/12 8:28:00, Duration: 30 day, Stop date: 04/21/12 8:27:00 IV No Longer Active Ramirez 03/22/2012 [facility] ondansetron 4 mg, 2 mL, Route: IVP, Drug form: INJ, Q8H, PRN Nausea & Vomiting, Start date: 03/22/12 8:28:00, Duration: 30 day, Stop date: 04/21/12 8:27:00 IVP No Longer Active Yessi 03/22/2012 [facility] nter acetaminophen-hydrocodone 325 mg-5 mg oral tablet 2 tab, Route: PO, Drug Form: TAB, Q4H, PRN Pain Score 4-6, Start date: 03/22/12 8:28:00, Duration: 30 day, Stop date: 04/21/12 8:27:00 PO No Longer Active Yessi 03/22/2012 [facility] morphine Sulfate 2 mg, 1 mL, R oute: IVP, Drug form: INJ, Q1H, PRN Pain Score 7-10, Start date: 03/22/12 8:28:00, Duration: 30 day, Stop date: 04/21/12 8:27:00 IVP No Longer Active Yessi 03/22/2012 [facility] nter Plavix 300 mg, Route: PO, Drug form: TAB, ONCE, Start date: 03/22/12 8:11:00, Duration: 1 doses or times, Stop date: 03/22/12 8:11:00 PO No Longer Active Lary 2011 [facility] cefazolin 2 gm, 100 mL, Route: IVPB, Drug form: INJ, PRE OP, Priority: STAT, Start date: 03/22/12 6:22:00, Duration: 1 day, Stop date: 03/23/12 6:21:00 IVPB No Longer Active Bannercarly 03/22/2012 [facility]ter Plavix 75 mg oral tablet 75 mg , 1 tab, PO, Daily, 30 tab, Substitution Allowed, TAB PO No Longer Active Oliver 03/14/2012 [facility] nter Aspirin Low Dose 81 mg oral tablet 81 mg, 1 tab, PO, Daily, Substitution Allowed PO No Longer Active 03/08/2012 [facility] nter Vicodin ES 7.5/750 oral tablet 1-2 tab, PO, Q4-6H, PRN, 30 tab, Pain, Substitution Allowed, Soft Stop PO No Longer Active Oliver 03/08/2012 [facility] lisinopril 20 mg, PO, Daily, S ubstitution Allowed [facility] aspirin 325 mg tablet 325 mg, 1 tab, PO, Daily, 30 tab, Substitution Allowed, TAB PO No Longer Active Oliver 03/22/2011 [facility] nter Allergies, Adverse Reactions, Alerts Substance Category Reaction Severity Reaction type Status Date Reported Comments Source No Known Medication Allergies Assertion Drug aller gy [facility] Immunizations Immunization Date Given Site Status Last Updated Comments Source pneumococcal 13-valent vaccine 09/21/2016 Left deltoid completed [facility] Results Order Name Results Value Reference Range Date Interpretation Comments Source CHEM PANEL Magnesium Lvl 1.9 1.8 - 2.4 02/26/2020 [facility] CHEM PANEL Phosphorus 2.5 2.5 - 4.5 02/26/2020 [facility] CHEM PANEL Glucose Lvl 126 70 - 99 02/26/2020 [facility] CHEM PANEL BUN 10 7 - 22 02/26/2020 [facility] CHEM PANEL Creatinine Lvl 0.81 0.50 - 1.40 02/26/2020 [facility] CHEM PANEL Sodium Lvl 145 135 - 145 02/26/2020 [facility] CHEM PANEL Potassium Lvl 4.0 3.5 - 5.1 02/26/2020 [facility] CHEM PANEL Chloride Lvl 119 95 [...] Magnesium Lvl 1.6 1.8 - 2.4 02/26/2020 [facility] CHEM PANEL Phosphorus 2.4 2.5 - [...] should be multiplied by the estimated BMI. [facility] CHEM PANEL Glucose Lvl 94 70 - 99 02/25/2020 [facility] CHEM PANEL BUN 13 7 - 22 02/25/2020 [facility] CHEM PANEL Creatinine Lvl 0.81 0.50 - 1.40 02/25/2020 [facility] CHEM PANEL Sodium Lvl 148 135 - 145 02/25/2020 [facility] CHEM PANEL Potassium Lvl 4.1 3.5 - 5.1 02/25/2020 [facility] CHEM PANEL Chloride Lvl 123 95 - 109 02/25/2020 [facility] CHEM PANEL CO2 22 24 - 32 02/25/2020 [facility] CHEM PANEL Calcium Lvl 8.0 8.5 - 10.5 02/25/2020 [facility] CHEM PANEL AGAP 7.1 10.0 - 20.0 02/25/2020 [facility] CHEM PANEL Ammonia 56.0 <=45.0 uMol/L 02/25/2020 [facility] HEMATOLOGY Segs 60.4 45.0 - 75.0 02/25/2020 [facility] Lymphocytes 20.8 20.0 - 40.0 02/25/2020 [facility] HEMATOLOGY Monocytes 11.9 2.0 - 12.0 02/25/2020 [facility] HEMATOLOGY Eosinophils 5.7 0.0 - 4.0 02/25/2020 [facility] HEMATOLOGY Basophils 1.2 0.0 - 1.0 02/25/2020 [facility] HEMATOLOGY Neutrophils # 2.7 1.5 - 8.1 02/25/2020 [facility] Lymphocytes # 0.9 1.0 - 5.5 02/25/2020 [facility] Monocytes # 0.5 0.0 - 0.8 02/25/2020 [facility] Eosinophils # 0.3 0.0 - 0.5 02/25/2020 [facility] Basophils # 0.1 0.0 - 0.2 02/25/2020 [facility] HEMATOLOGY WBC 4.4 3.7 - 10.4 02/25/2020 [facility] HEMATOLOGY RBC 2.50 4.20 - 5.40 02/25/2020 [facility] HEMATOLOGY Hgb 8.1 12.0 - 16.0 02/25/2020 [facility] HEMATOLOGY Hct 24.3 36.0 - 48.0 02/25/2020 [facility] HEMATOLOGY MCV 97.1 80.0 - 98.0 02/25/2020 [facility] HEMATOLOGY MCH 32.6 27.0 - 31.0 02/25/2020 [facility] HEMATOLOGY MCHC 33.6 32.0 - 36.0 02/25/2020 [facility] HEMATOLOGY RDW 15.7 11.5 - 14.5 02/25/2020 [facility] HEMATOLOGY Platelet 61 133 - 450 02/25/2020 [facility] HEMATOLOGY MPV 9.8 7.4 - 10.4 02/25/2020 [facility] HEMATOLOGY Segs 61.9 45.0 - 75.0 02/24/2020 [facility] HEMATOLOGY Lymphocytes 18.3 20.0 - 40.0 02/24/2020 [facility] HEMATOLOGY Monocytes 13.4 2.0 - 12.0 02/24/2020 [facility] HEMATOLOGY Eosinophils 5.7 0.0 - 4.0 02/24/2020 [facility] HEMATOLOGY Basophils 0.7 0.0 - 1.0 02/24/2020 [facility] HEMATOLOGY Neutrophils # 2.5 1.5 - 8.1 02/24/2020 [facility] HEMATOLOGY Lymphocytes # 0.7 1.0 - 5.5 02/24/2020 [facility] HEMATOLOGY Monocytes # 0.5 0.0 - 0.8 02/24/2020 [facility] HEMATOLOGY Eosinophils # 0.2 0.0 - 0.5 02/24/2020 [facility] HEMATOLOGY WBC 4.0 3.7 - 10.4 02/24/2020 [facility] HEMATOLOGY RBC 2.36 4.20 - 5.40 02/24/2020 [facility] HEMATOLOGY Hgb 7.7 12.0 - 16.0 02/24/2020 [facility] HEMATOLOGY Hct 23.0 36.0 - 48.0 02/24/2020 [facility] HEMATOLOGY MCV 97.5 80.0 - 98.0 02/24/2020 [facility] HEMATOLOGY MCH 32.8 27.0 - 31.0 02/24/2020 [facility] HEMATOLOGY MCHC 33.6 32.0 - 36.0 02/24/2020 [facility] HEMATOLOGY RDW 15.3 11.5 - 14.5 02/24/2020 [facility] HEMATOLOGY Platelet 62 133 - 450 02/24/2020 [facility] HEMATOLOGY MPV 9.5 7.4 - 10.4 02/24/2020 [facility] HEMATOLOGY WBC 4.1 3.7 - 10.4 02/23/2020 [facility] HEMATOLOGY RBC 2.35 4.20 - 5.40 02/23/2020 [facility] HEMATOLOGY Hgb 7.8 12.0 - 16.0 02/23/2020 [facility] HEMATOLOGY Hct 22.9 36.0 - 48.0 02/23/2020 [facility] HEMATOLOGY MCV 97.5 80.0 - 98.0 02/23/2020 [facility] HEMATOLOGY MCH 33.3 27.0 - 31.0 02/23/2020 [facility] HEMATOLOGY MCHC 34.1 32.0 - 36.0 02/23/2020 [facility] HEMATOLOGY RDW 15.4 11.5 - 14.5 02/23/2020 [facility] HEMATOLOGY Platelet 59 133 - 450 02/23/2020 [facility] HEMATOLOGY MPV 9.3 7.4 - 10.4 02/23/2020 [facility] HEMATOLOGY Segs 60.9 45.0 - 75.0 02/23/2020 [facility] HEMATOLOGY Lymphocytes 18.5 20.0 - 40.0 02/23/2020 [facility] HEMATOLOGY Monocytes 13.7 2.0 - 12.0 02/23/2020 [facility] HEMATOLOGY Eosinophils 6.4 0.0 - 4.0 02/23/2020 [facility] HEMATOLOGY Basophils 0.5 0.0 - 1.0 02/23/2020 [facility] HEMATOLOGY Neutrophils # 2.5 1.5 - 8.1 02/23/2020 [facility] HEMATOLOGY Lymphocytes # 0.8 1.0 - 5.5 02/23/2020 [facility] HEMATOLOGY Monocytes # 0.6 0.0 - 0.8 02/23/2020 [facility] HEMATOLOGY Eosinophils # 0.3 0.0 - [...] Alk Phos 100 39 - 136 02/21/2020 [facility] CHEM PANEL Bili Total 1.9 0.2 - 1.3 02/21/2020 [facility] CHEM PANEL B/C Ratio 27 6 - 25 02/21/2020 [facility] CHEM PANEL Globulin 2.8 2.7 - 4.2 02/21/2020 [facility] CHEM PANEL A/G Ratio 1.0 0.7 - 1.6 02/21/2020 [facility] HEMATOLOGY RBC Morph Alison l (02/20/20 6:17 AM) Normal 02/20/2020 [facility] HEMATOLOGY Plt Morph Alison l (02/20/20 6:17 AM) Normal 02/20/2020 [facility] BLOOD BANK RESULTS RBC product Product available 5 (02/19/20 6:49 AM) 02/19/2020 Result Comment: 02/19/2020 0 7:59 [id number]
notified Yuliya [facility] BLOOD BANK RESULTS Platelet product Product available 4 (02/19/20 6:49 AM) 02/19/2020 Result Comment: 02/19/2020 0 8:00 [id number]
notified Yuliya [facility] CHEM PANEL Total Protein 6.0 6.4 - 8.4 02/19/2020 [facility] CHEM PANEL Albumin Lvl 3.2 3.5 - 5.0 02/19/2020 [facility] CHEM PANEL ALT 25 0 - 65 02/19/2020 [facility] CHEM PANEL AST 44 0 - 37 02/19/2020 [facility] CHEM PANEL Alk Phos 92 39 - 136 02/19/2020 [facility] CHEM PANEL Bili Total 2.0 0.2 - 1.3 02/19/2020 [facility] CHEM PANEL Bili Direct 0.8 0.0 - 0.3 02/19/2020 [facility] CHEM PANEL Globulin 2.8 2.7 - 4.2 02/19/2020 [facility] CHEM PANEL A/G Ratio 1.1 0.7 - 1.6 02/19/2020 [facility] CHEM PANEL Bili Indirect 1.2 0.0 - 1.0 02/19/2020 [facility] CHEM PANEL Procalcitonin Lvl 0.58 0.00 - 0.10 02/19/2020 [facility] HEMATOLOGY PT 25.2 12.0 - 14.7 02/19/2020 [facility] HEMATOLOGY INR 2.24 0.85 - 1.17 02/19/2020 [facility] HEMATOLOGY PTT 46.4 22.9 - 35.8 02/19/2020 [facility] PARATHYROID PROFILE Ca Ion WB 1.12 1.05 - 1.25 02/19/2020 [facility] PARATHYROID PROFILE Ca Norm WB 1.11 1.05 - 1.25 02/19/2020 [facility] CHEM PANEL Bili Direct 0.9 0.0 - 0.3 02/18/2020 [facility] CHEM PANEL Bili Indirect 1.5 0.0 - 1.0 02/18/2020 [facility] HEMATOLOGY PT 25.1 12.0 - 14.7 02/18/2020 [facility] HEMATOLOGY INR 2.23 0.85 - 1.17 02/18/2020 [facility] CHEM PANEL Bili Direct 1.0 0.0 - 0.3 02/18/2020 [facility] CHEM PANEL Bili Indirect 1.4 0.0 - 1.0 02/18/2020 [facility] HEMATOLOGY Basophils # 0.1 0.0 - 0.2 02/18/2020 [facility] CHEM PANEL Procalcitonin Lvl 0.46 0.00 - 0.10 02/18/2020 [facility] ENDOCRINOLOGY Cortisol 25.1 02/18/2020 [facility] HEMATOLOGY Basophils # 0.1 0.0 - 0.2 02/17/2020 [facility] CHEM PANEL B/C Ratio 19 6 - 25 02/17/2020 [facility] URINE CHEM U Sodium 10 02/16/2020 [facility] URINE CHEM U Creatinine 272.00 02/16/2020 [facility] URINE CHEM U Protein 22.0 02/16/2020 [facility] URINE CHEM U Prot/Creat 0.08 02/16/2020 [facility] IMMUNOLOGY Coronavirus (COVID-19) NA A Not Detected (02/16/20 5:26 AM) Not Detected 02/16/2020 [facility] URINE AND STOOL UA Color Yellow *NA* (02/16/20 5:24 AM) Yellow 02/16/2020 [facility] URINE AND STOOL UA Turbidity Marked *ABN* (02/16/20 5:24 AM) Clear 02/16/2020 [facility] URINE AND STOOL UA Spec Grav 1.014 <=1.030 02/16/2020 [facility] URINE AND STOOL UA pH 5.0 5.0 - 8.0 02/16/2020 [facility] URINE AND STOOL UA Protein Negative mg/dL Negative mg/dL 02/16/2020 [facility] URINE AND STOOL UA Glucose Negative mg/dL Negative mg/dL 02/16/2020 [facility] URINE AND STOOL UA Ketones Negative mg/dL Negative mg/dL 02/16/2020 [facility] URINE AND STOOL UA Bili Negative *NA* (02/16/20 5:24 AM) Negative 02/16/2020 [facility] URINE AND STOOL UA Blood Negative (02/16/20 5:24 AM) Negative 02/16/2020 [facility] URINE AND STOOL UA Nitrite Negative (02/16/20 5:24 AM) Negative 02/16/2020 [facility] URINE AND STOOL UA Leuk Est Negative (02/16/20 5:24 AM) Negative 02/16/2020 [facility] URINE AND STOOL UA Sq Epi Occasional /LPF Few /LPF 02/16/2020 [facility] URINE AND STOOL UA WBC 1 0 - 5 02/16/2020 [facility] URINE AND STOOL UA RBC <1 0 - 2 02/16/2020 [facility] URINE AND STOOL UA Bacteria Few /HPF None Seen /HPF 02/16/2020 [facility] URINE AND STOOL UA Urobilinogen <=1.0 mg/dL 0.1 - 1.0 02/16/2020 [facility] URINE CHEM U Sodium 18 02/16/2020 [facility] URINE CHEM U Potassium 27.7 02/16/2020 [facility] URINE CHEM U Chloride 20 02/16/2020 [facility] IMMUNOLOGY Coronavirus (COVID-19) NA A See Note 7 (02/16/20 3:16 AM) Not Detected 02/16/2020 Result Comment: Namita t result invalid. New specimen required for repeat testing. [facility] URINE AND STOOL Occult Bld Stl Positive *ABN* (02/16/20 3:16 AM) Negative 02/16/2020 [facility] BLOOD BANK RESULTS ABO/Rh A POS 02/16/2020 [facility] BLOOD [facility] RESULTS Antibody Scrn Negative (02/16/20 12:00 AM) 02/16/2020 [facility] CARDIAC ENZYMES Total CK 59 12 - 191 02/16/2020 [facility] CARDIAC ENZYMES Troponin-I <0.02 0.00 - 0.40 02/16/2020 [facility] CARDIAC ENZYMES BNP 114 <=100 pg/mL 02/16/2020 [facility] HEMATOLOGY PT 20.5 12.0 - 14.7 02/16/2020 [facility] HEMATOLOGY INR 1.73 0.85 - 1.17 02/16/2020 [facility] HEMATOLOGY PTT 34.5 22.9 - 35.8 02/16/2020 [facility] CHEM PANEL AST 30 0 - 37 10/18/2016 [facility] CHEM PANEL Bili Direct 0.6 0.0 - 0.3 10/18/2016 [facility] CHEM PANEL Bili Total 1.7 0.2 - 1.3 10/18/2016 [facility] CHEM PANEL Alk Phos 129 39 - 136 10/18/2016 [facility] CHEM PANEL ALT 28 0 - 65 10/18/2016 [facility] CHEM PANEL Albumin Lvl 2.2 3.5 - 5.0 10/18/2016 [facility] CHEM PANEL Total Protein 5.8 6.4 - 8.4 10/18/2016 [facility] CHEM PANEL Bili Indirect 1.1 0.0 - 1.0 10/18/2016 [facility] CHEM PANEL A/G Ratio 0.6 0.7 - 1.6 10/18/2016 [facility] CHEM PANEL Globulin 3.6 2.7 - 4.2 10/18/2016 [facility] ELECTROLYTES AGAP 12.0 10.0 - 20.0 10/18/2016 [facility] ELECTROLYTES eGFR 94 10/18/2016 Result Comment: [...] should be multiplied by the estimated BMI. [facility] ELECTROLYTES Calcium Lvl 7.6 8.5 - 10.5 10/18/2016 [facility] ELECTROLYTES Chloride Lvl 109 95 - 109 10/18/2016 [facility] ELECTROLYTES CO2 24 24 - 32 10/18/2016 [facility] ELECTROLYTES Potassium Lvl 4.0 3.5 - 5.1 10/18/2016 [facility] ELECTROLYTES Sodium Lvl 141 135 - 145 10/18/2016 [facility] ELECTROLYTES Glucose Lvl 142 70 - 99 10/18/2016 [facility] ELECTROLYTES BUN 8 7 - 22 10/18/2016 [facility] ELECTROLYTES Creatinine Lvl 0.6 8 0.50 - 1.40 10/18/2016 [facility] HEMATOLOGY Platelet 50 133 - 450 10/18/2016 [facility] HEMATOLOGY PTT 36.7 22.9 - 35.8 10/18/2016 [facility] HEMATOLOGY INR 1.51 0.85 - 1.17 10/18/2016 [facility] HEMATOLOGY PT 18.5 12.0 - 14.7 10/18/2016 [facility] HEMATOLOGY WBC 3.3 3.7 - 10.4 10/18/2016 [facility] CHEM PANEL Lipase Lvl 238 73 - 393 09/21/2016 [facility] CHEM PANEL Ammonia 66.0 <=45.0 uMol/L 09/21/2016 [facility] CHEM PANEL Lactic Acid Lvl 1.2 0.5 - 2.2 09/21/2016 [facility] CHEM PANEL B/C Ratio 9 6 - 25 09/21/2016 [facility] CHEM PANEL Globulin 3.6 2.7 - 4.2 09/21/2016 [facility] CHEM PANEL AGAP 9.5 10.0 - 20.0 09/21/2016 [facility] CHEM PANEL A/G Ratio 0.6 0.7 - 1.6 09/21/2016 [facility] CHEM PANEL AST 41 0 - 37 09/21/2016 [facility] CHEM PANEL Bili Total 1.5 0.2 - 1.3 09/21/2016 [facility] CHEM PANEL Alk Phos 139 39 - 136 09/21/2016 [facility] CHEM PANEL eGFR 102 09/21/2016 Result [...] should be multiplied by the estimated BMI. [facility] CHEM PANEL Albumin Lvl 2.1 3.5 - 5.0 09/21/2016 [facility] CHEM PANEL ALT 23 0 - 65 09/21/2016 [facility] CHEM PANEL BUN 5 7 - 22 09/21/2016 [facility] CHEM PANEL Glucose Lvl 75 70 - 99 09/21/2016 [facility] CHEM PANEL Potassium Lvl 3.5 3.5 - 5.1 09/21/2016 [facility] CHEM PANEL Sodium Lvl 144 135 - 145 09/21/2016 [facility] CHEM PANEL Creatinine Lvl 0.53 0.50 - 1.40 09/21/2016 [facility] CHEM PANEL CO2 23 24 - 32 09/21/2016 [facility] CHEM PANEL Total Protein 5.7 6.4 - 8.4 09/21/2016 [facility] CHEM PANEL Chloride Lvl 115 95 - 109 09/21/2016 [facility] CHEM PANEL Calcium Lvl 7.3 8.5 - 10.5 09/21/2016 [facility] HEMATOLOGY Monocytes # 0.3 0.0 - 0.8 09/21/2016 [facility] Eosinophils # 0.2 0.0 - 0.5 09/21/2016 [facility] HEMATOLOGY Eosinophils 4.1 0.0 - 4.0 09/21/2016 [facility] Lymphocytes # 1.1 1.0 - 5.5 09/21/2016 [facility] Basophils 0.7 0.0 - 1.0 09/21/2016 [facility] Segs-Bands # 2.4 1.5 - 8.1 09/21/2016 [facility] HEMATOLOGY Segs 59.0 45.0 - 75.0 09/21/2016 [facility] Lymphocytes 27.6 20.0 - 40.0 09/21/2016 [facility] Monocytes 8.6 2.0 - 12.0 09/21/2016 [facility] MPV 10.0 7.4 - 10.4 09/21/2016 [facility] MCHC 34.4 32.0 - 36.0 09/21/2016 [facility] MCH 31.1 27.0 - 31.0 09/21/2016 [facility] RDW 15.6 11.5 - 14.5 09/21/2016 [facility] HEMATOLOGY Platelet 48 133 - 450 09/21/2016 [facility] HEMATOLOGY MCV 90.4 80.0 - 98.0 09/21/2016 [facility] HEMATOLOGY WBC 4.0 3.7 - 10.4 09/21/2016 [facility] HEMATOLOGY Hct 28.7 36.0 - 48.0 09/21/2016 [facility] HEMATOLOGY RBC 3.18 4.20 - 5.40 09/21/2016 [facility] HEMATOLOGY Hgb 9.9 12.0 - 16.0 09/21/2016 [facility] IMMUNOLOGY CLEO Interp Patte rn appears speckled 09/21/2016 [facility] IMMUNOLOGY CLEO Titer 1:160 *ABN* (09/21/16 4:16 AM) Negative 09/21/2016 [facility] Hep Bs Ag Negat aristeo *NA* (09/21/16 4:16 AM) Negative 09/21/2016 [facility] Hep A IgM Negat aristeo *NA* (09/21/16 4:16 AM) Negative 09/21/2016 [facility] Hep C Ab Negat aristeo *NA* (09/21/16 4:16 AM) 09/21/2016 [facility] Hep B Core IgM Negat aristeo *NA* (09/21/16 4:16 AM) Negative 09/21/2016 [facility] CLEO Posit aristeo *ABN* (09/21/16 4:16 AM) Negative 09/21/2016 [facility] LIPIDS CHD Risk 3.00 3.90 - 5.80 09/21/2016 [facility] LIPIDS VLDL 9 09/21/2016 [facility] LIPIDS LDL (Calculated) 63 <=99 mg/dL 09/21/2016 [facility] LIPIDS HDL 36 >=61 mg/dL 09/21/2016 [facility] LIPIDS Chol 108 <=199 mg/dL 09/21/2016 [facility] LIPIDS Trig 44 <=149 mg/dL 09/21/2016 [facility] ANEMIA STUDY Folate Lvl 19.6 >=3.0 ng/mL 09/20/2016 [facility] ANEMIA STUDY Vitamin B12 Lvl 670 254 - 1320 09/20/2016 [facility] ANEMIA STUDY % [place] Fe 34 12 - 57 09/20/2016 [facility] ANEMIA STUDY TIBC 157 228 - 428 09/20/2016 [facility] ANEMIA STUDY UIBC 104 110 - 370 09/20/2016 [facility] ANEMIA STUDY Iron 53 30 - 160 09/20/2016 [facility] ANEMIA STUDY Ferritin Lvl 15 5 - 204 09/20/2016 [facility] CHEM PANEL B/C Ratio 15 6 - 25 09/20/2016 [facility] CHEM PANEL AGAP 10.8 10.0 - 20.0 09/20/2016 [facility] CHEM PANEL A/G Ratio 0.6 0.7 - 1.6 09/20/2016 [facility] CHEM PANEL Globulin 3.3 2.7 - 4.2 09/20/2016 [facility] CHEM PANEL eGFR 107 09/20/2016 Result [...] should be multiplied by the estimated BMI. [facility] CHEM PANEL Chloride Lvl 116 95 - 109 09/20/2016 [facility] CHEM PANEL Potassium Lvl 3.8 3.5 - 5.1 09/20/2016 [facility] CHEM PANEL Sodium Lvl 145 135 - 145 09/20/2016 [facility] CHEM PANEL Creatinine Lvl 0.46 0.50 - 1.40 09/20/2016 [facility] CHEM PANEL BUN 7 7 - 22 09/20/2016 [facility] CHEM PANEL Glucose Lvl 75 70 - 99 09/20/2016 [facility] CHEM PANEL Bili Total 1.8 0.2 - 1.3 09/20/2016 [facility] CHEM PANEL Alk Phos 119 39 - 136 09/20/2016 [facility] CHEM PANEL AST 37 0 - 37 09/20/2016 [facility] CHEM PANEL ALT 20 0 - 65 09/20/2016 [facility] CHEM PANEL Albumin Lvl 1.9 3.5 - 5.0 09/20/2016 [facility] CHEM PANEL Total Protein 5.2 6.4 - 8.4 09/20/2016 [facility] CHEM PANEL Calcium Lvl 7.1 8.5 - 10.5 09/20/2016 [facility] CHEM PANEL CO2 22 24 - 32 09/20/2016 [facility] HEMATOLOGY Basophils 0.6 0.0 - 1.0 09/20/2016 [facility] HEMATOLOGY Segs-Bands # 2.0 1.5 - 8.1 09/20/2016 [facility] HEMATOLOGY Lymphocytes # 1.1 1.0 - 5.5 09/20/2016 [facility] HEMATOLOGY Monocytes # 0.3 0.0 - 0.8 09/20/2016 [facility] HEMATOLOGY Eosinophils # 0.1 0.0 - 0.5 09/20/2016 [facility] HEMATOLOGY Segs 55.3 45.0 - 75.0 09/20/2016 [facility] Lymphocytes 30.8 20.0 - 40.0 09/20/2016 [facility] Monocytes 9.4 2.0 - 12.0 09/20/2016 [facility] Eosinophils 3.9 0.0 - 4.0 09/20/2016 [facility] PT 21.6 12.0 - 14.7 09/20/2016 [facility] INR 1.84 0.85 - 1.17 09/20/2016 [facility] RDW 15.4 11.5 - 14.5 09/20/2016 [facility] MPV 10.6 7.4 - 10.4 09/20/2016 [facility] Platelet 46 133 - 450 09/20/2016 [facility] Hgb 9.3 12.0 - 16.0 09/20/2016 [facility] RBC 2.98 4.20 - 5.40 09/20/2016 [facility] WBC 3.6 3.7 - 10.4 09/20/2016 [facility] MCH 31.1 27.0 - 31.0 09/20/2016 [facility] MCHC 34.5 32.0 - 36.0 09/20/2016 [facility] HEMATOLOGY Hct 26.9 36.0 - 48.0 09/20/2016 [facility] MCV 90.1 80.0 - 98.0 09/20/2016 [facility] HEMATOLOGY Retic Auto 2.0 0.5 - 1.5 09/20/2016 [facility] Hep C Ab Negat aristeo *NA* (09/20/16 6:29 AM) 09/20/2016 [facility] IMMUNOLOGY Hep B Core IgM Negat aristeo *NA* (09/20/16 6:29 AM) Negative 09/20/2016 [facility] IMMUNOLOGY Hep Bs Ag Negat aristeo *NA* (09/20/16 6:29 AM) Negative 09/20/2016 [facility] IMMUNOLOGY Hep A IgM Negat aristeo *NA* (09/20/16 6:29 AM) Negative 09/20/2016 [facility] IMMUNOLOGY Hep C Ab Negat aristeo *NA* (09/20/16 6:29 AM) 09/20/2016 [facility] IMMUNOLOGY Hep B Core IgM Negat aristeo *NA* (09/20/16 6:29 AM) Negative 09/20/2016 [facility] IMMUNOLOGY Hep A IgM Negat aristeo *NA* (09/20/16 6:29 AM) Negative 09/20/2016 [facility] Hep Bs Ag Negat aristeo *NA* (09/20/16 6:29 AM) Negative 09/20/2016 [facility] Hep A Tot Posit aristeo *NA* (09/20/16 6:29 AM) Negative 09/20/2016 [facility] Hep C Ab Negat aristeo *NA* (09/20/16 6:29 AM) 09/20/2016 [facility] Hep Bs Ab <3.1 <=7.4 mIU/mL 09/20/2016 [facility] CHEM PANEL Magnesium Lvl 2.1 1.8 - 2.4 09/19/2016 [facility] CHEM PANEL eGFR 105 09/19/2016 Result [...] B/C Ratio 20 6 - 25 09/19/2016 [facility] CHEM PANEL AGAP 12.6 10.0 - 20.0 09/19/2016 [facility] HEMATOLOGY Lymphocytes # 1.2 1.0 - 5.5 09/19/2016 [facility] HEMATOLOGY Monocytes # 0.4 0.0 - 0.8 09/19/2016 [facility] HEMATOLOGY Monocytes 8.2 2.0 - 12.0 09/19/2016 [facility] HEMATOLOGY Lymphocytes 27.5 20.0 - 40.0 09/19/2016 [facility] HEMATOLOGY Eosinophils # 0.1 0.0 - 0.5 09/19/2016 [facility] HEMATOLOGY Segs-Bands # 2.7 1.5 - 8.1 09/19/2016 [facility] HEMATOLOGY Basophils 0.6 0.0 - 1.0 09/19/2016 [facility] HEMATOLOGY Eosinophils 2.3 0.0 - 4.0 09/19/2016 [facility] HEMATOLOGY Segs 61.4 45.0 - 75.0 09/19/2016 [facility] HEMATOLOGY MCHC 34.4 32.0 - 36.0 09/19/2016 [facility] HEMATOLOGY Platelet 60 133 - 450 09/19/2016 [facility] HEMATOLOGY RDW 15.3 11.5 - 14.5 09/19/2016 [facility] HEMATOLOGY MCH 31.1 27.0 - 31.0 09/19/2016 [facility] HEMATOLOGY MCV 90.4 80.0 - 98.0 09/19/2016 [facility] HEMATOLOGY MPV 10.6 7.4 - 10.4 09/19/2016 [facility] HEMATOLOGY Hct 29.6 36.0 - 48.0 09/19/2016 [facility] HEMATOLOGY Hgb 10.2 12.0 - 16.0 09/19/2016 [facility] HEMATOLOGY RBC 3.28 4.20 - 5.40 09/19/2016 [facility] WBC 4.4 3.7 - 10.4 09/19/2016 [facility] CHEM PANEL Lactic Acid Lvl 1.9 0.5 - 2.2 09/18/2016 [facility] CHEM PANEL Lipase Lvl 275 73 - 393 09/18/2016 [facility] VIRAL - SEROLOGY Influ A Negative (09/18/16 2:48 PM) Negative 09/18/2016 [facility] VIRAL - SEROLOGY Influ B Negative (09/18/16 2:48 PM) Negative 09/18/2016 [facility] CARDIAC ENZYMES Troponin-I <0.02 0.00 - 0.40 09/18/2016 [facility] CARDIAC ENZYMES CK MB 1.4 0.5 - 3.6 09/18/2016 [facility] CARDIAC ENZYMES Total CK 73 12 - 191 09/18/2016 [facility] CARDIAC ENZYMES CK MB Index 1.9 0.0 - 2.5 09/18/2016 [facility] CHEM PANEL Lactic Acid Lvl 2.6 0.5 - 2.2 09/18/2016 [facility] DRUG SCREEN UDS Note See Note *NA* (09/18/16 2:45 PM) 09/18/2016 [facility] DRUG SCREEN U Benzodia Scr Nega tive *NA* (09/18/16 2:45 PM) Negative 09/18/2016 [facility] DRUG SCREEN U Phencyc Scr Nega tive *NA* (09/18/16 2:45 PM) Negative 09/18/2016 [facility] DRUG SCREEN U Cocaine Scr Nega tive *NA* (09/18/16 2:45 PM) Negative 09/18/2016 [facility] DRUG SCREEN U Cannab Scr Nega tive *NA* (09/18/16 2:45 PM) Negative 09/18/2016 [facility] DRUG SCREEN U Opiate Scr Nega tive *NA* (09/18/16 2:45 PM) Negative 09/18/2016 [facility] DRUG SCREEN U Angela Scr Nega tive *NA* (09/18/16 2:45 PM) Negative 09/18/2016 [facility] DRUG SCREEN U Amph Scr Nega tive *NA* (09/18/16 2:45 PM) Negative 09/18/2016 [facility] TOXICOLOGY Etoh (%) <0.003 09/18/2016 [facility] TOXICOLOGY Ethanol Lvl <3 09/18/2016 [facility] URINE AND STOOL UA Sq Epi Occasional /LPF Few /LPF 09/18/2016 [facility] URINE AND STOOL UA Leuk Est Negative (09/18/16 2:45 PM) Negative 09/18/2016 [facility] URINE AND STOOL UA WBC 1 0 - 5 09/18/2016 [facility] URINE AND STOOL UA Nitrite Negative (09/18/16 2:45 PM) Negative 09/18/2016 [facility] URINE AND STOOL UA RBC 1 0 - 2 09/18/2016 [facility] URINE AND STOOL UA Urobilinogen 4.0 0.1 - 1.0 09/18/2016 [facility] URINE AND STOOL UA pH 6.0 5.0 - 8.0 09/18/2016 [facility] URINE AND STOOL UA Turbidity Clear (09/18/16 2:45 PM) Clear 09/18/2016 [facility] URINE AND STOOL UA Spec Grav 1.027 <=1.030 09/18/2016 [facility] URINE AND STOOL UA Amorph Nadia Occasional /HPF None Seen /HPF 09/18/[address] [facility] URINE AND STOOL UA Mucus Few /LPF None Seen /LPF 09/18/2016 [facility] URINE AND STOOL UA Color Natalee 09/18/2016 [facility] URINE AND STOOL UA Blood Negative (09/18/16 2:45 PM) Negative 09/18/2016 [facility] URINE AND STOOL UA Glucose Negative mg/dL Negative mg/dL 09/18/[address] [facility] [address] URINE AND STOOL UA Protein Negative mg/dL Negative mg/dL 09/18/[address] [facility] [address] URINE AND STOOL UA Bili Negative *NA* (09/18/16 2:45 PM) Negative 09/18/2016 [facility] URINE AND STOOL UA Ketones Negative mg/dL Negative mg/dL 09/18/2016 [facility] CARDIAC ENZYMES Troponin-I <0.02 0.00 - 0.40 04/29/2016 [facility] URINE AND STOOL UA WBC 7 0 - 5 04/29/2016 [facility] URINE AND STOOL UA Sq Epi Occasional /LPF Few /LPF 04/29/2016 [facility] URINE AND STOOL UA RBC 1 0 - 2 04/29/2016 [facility] URINE AND STOOL UA Mucus Few /LPF None Seen /LPF 04/29/2016 [facility] URINE AND STOOL UA Bacteria Many /HPF None Seen /HPF 04/29/2016 [facility] URINE AND STOOL UA Ketones Negative mg/dL Negative mg/dL 04/29/2016 [facility] URINE AND STOOL UA Urobilinogen 2.0 0.1 - 1.0 04/29/2016 [facility] URINE AND STOOL UA Nitrite Positive *ABN* (04/29/16 1:18 AM) Negative 04/29/2016 [facility] URINE AND STOOL UA Bili Negative *NA* (04/29/16 1:18 AM) Negative 04/29/2016 [facility] URINE AND STOOL UA Blood Small *ABN* (04/29/16 1:18 AM) Negative 04/29/2016 [facility] URINE AND STOOL UA Protein Negative mg/dL Negative mg/dL 04/29/2016 [facility] URINE AND STOOL UA Glucose Negative mg/dL Negative mg/dL 04/29/2016 [facility] URINE AND STOOL UA Leuk Est Small *ABN* (04/29/16 1:18 AM) Negative 04/29/2016 [facility] URINE AND STOOL UA pH 5.0 5.0 - 8.0 04/29/2016 [facility] URINE AND STOOL UA Color Yellow *NA* (04/29/16 1:18 AM) Yellow 04/29/2016 [facility] URINE AND STOOL UA Spec Grav 1.011 <=1.030 04/29/2016 [facility] URINE AND STOOL UA Turbidity Clear (04/29/16 1:18 AM) Clear 04/29/2016 [facility] CARDIAC ENZYMES BNP 50 <=100 pg/mL 04/29/2016 [facility] CARDIAC ENZYMES Troponin-I <0.02 0.00 - 0.40 04/29/2016 [facility] CARDIAC ENZYMES Total CK 58 12 - 191 04/29/2016 [facility] CARDIAC ENZYMES CK MB 0.9 0.5 - 3.6 04/29/2016 [facility] CARDIAC ENZYMES CK MB Index 1.6 0.0 - 2.5 04/29/2016 [facility] CHEM PANEL Bili Direct 0.6 0.0 - 0.3 04/29/2016 [facility] CHEM PANEL eGFR 94 04/29/2016 Result [...] should be multiplied by the estimated BMI. [facility] CHEM PANEL Globulin 4.1 2.7 - 4.2 04/29/2016 [facility] CHEM PANEL A/G Ratio 0.6 0.7 - 1.6 04/29/2016 [facility] CHEM PANEL Potassium Lvl 3.3 3.5 - 5.1 04/29/2016 [facility] CHEM PANEL Chloride Lvl 107 95 - 109 04/29/2016 [facility] CHEM PANEL Albumin Lvl 2.6 3.5 - 5.0 04/29/2016 [facility] CHEM PANEL ALT 21 0 - 65 04/29/2016 [facility] CHEM PANEL CO2 27 24 - 32 04/29/2016 [facility] CHEM PANEL Calcium Lvl 8.2 8.5 - 10.5 04/29/2016 [facility] CHEM PANEL Total Protein 6.7 6.4 - 8.4 04/29/2016 [facility] CHEM PANEL AGAP 10.3 10.0 - 20.0 04/29/2016 [facility] CHEM PANEL Bili Total 1.5 0.2 - 1.3 04/29/2016 [facility] CHEM PANEL Alk Phos 128 39 - 136 04/29/2016 [facility] CHEM PANEL AST 38 0 - 37 04/29/2016 [facility] CHEM PANEL B/C Ratio 16 6 - 25 04/29/2016 [facility] CHEM PANEL Glucose Lvl 79 70 - 99 04/29/2016 [facility] CHEM PANEL BUN 11 7 - 22 04/29/2016 [facility] CHEM PANEL Creatinine Lvl 0.70 0.50 - 1.40 04/29/2016 [facility] CHEM PANEL Sodium Lvl 141 135 - 145 04/29/2016 [facility] HEMATOLOGY PTT 32.1 22.9 - 35.8 04/29/2016 [facility] HEMATOLOGY INR 1.42 0.85 - 1.17 04/29/2016 [facility] HEMATOLOGY PT 17.7 12.0 - 14.7 04/29/2016 [facility] HEMATOLOGY MCH 30.6 27.0 - 31.0 04/29/2016 [facility] HEMATOLOGY MCV 90.3 80.0 - 98.0 04/29/2016 [facility] HEMATOLOGY Hgb 11.3 12.0 - 16.0 04/29/2016 [facility] HEMATOLOGY RBC 3.68 4.20 - 5.40 04/29/2016 [facility] HEMATOLOGY Hct 33.2 36.0 - 48.0 04/29/2016 [facility] HEMATOLOGY MPV 10.9 7.4 - 10.4 04/29/2016 [facility] HEMATOLOGY WBC 5.6 3.7 - 10.4 04/29/2016 [facility] HEMATOLOGY Platelet 52 133 - 450 04/29/2016 [facility] HEMATOLOGY RDW 15.2 11.5 - 14.5 04/29/2016 [facility] HEMATOLOGY MCHC 33.9 32.0 - 36.0 04/29/2016 [facility] HEMATOLOGY Eosinophils 2.0 0.0 - 4.0 04/29/2016 [facility] HEMATOLOGY Monocytes 8.1 2.0 - 12.0 04/29/2016 [facility] HEMATOLOGY Basophils 0.9 0.0 - 1.0 04/29/2016 [facility] HEMATOLOGY Segs 63.2 45.0 - 75.0 04/29/2016 [facility] HEMATOLOGY Lymphocytes 25.8 20.0 - 40.0 04/29/2016 [facility] HEMATOLOGY Basophils # 0.1 0.0 - 0.2 04/29/2016 [facility] HEMATOLOGY Lymphocytes # 1.4 1.0 - 5.5 04/29/2016 [facility] HEMATOLOGY Eosinophils # 0.1 0.0 - 0.5 04/29/2016 [facility] HEMATOLOGY Monocytes # 0.5 0.0 - 0.8 04/29/2016 [facility] HEMATOLOGY Segs-Bands # 3.5 1.5 - 8.1 04/29/2016 [facility] BEDSIDE GLUCOSE TESTING Comment1 Notify RN/ 03/23/2012 NA [facility] BEDSIDE GLUCOSE TESTING Gluc POC Lif scn 120 70 - 99 03/23/2012 HI <sup>1</sup>Interpretive Data: Upper Reportable Limit: 200 mg/dL. [facility] BEDSIDE GLUCOSE TESTING Comment1 Notify RN/ 03/23/2012 NA [facility] BEDSIDE GLUCOSE TESTING Gluc POC Lif scn 129 70 - 99 03/23/2012 [place] <sup>2</sup>Interpretive Data: Upper Reportable Limit: 200 mg/dL. [facility] BEDSIDE GLUCOSE TESTING Gluc POC Lif scn 121 70 - 99 03/23/2012 HI <sup>3</sup>Interpretive Data: Upper Reportable Limit: 200 mg/dL. [facility] BEDSIDE GLUCOSE TESTING Comment1 Notify RN/ 03/23/2012 NA [facility] HEMATOLOGY Plav Effect Plt 60 03/23/2012 NA [...] GP IIb/IIIa Inhibitor, e.g. ReoPro or Integrilin [facility] HEMATOLOGY ASA Effect Plt 411 03/23/2012 NA [...] higher ARU values than ASA taken alone. [facility] CHEMISTRY CO2 19 24 - 32 03/23/2012 LOW [facility] CHEMISTRY Creatinine Lvl 0.8 0.5 - 1.4 03/23/2012 Normal [facility] CHEMISTRY Sodium Lvl 145 135 - 145 03/23/2012 Normal [facility] CHEMISTRY Potassium Lvl 3.7 3.5 - 5.1 03/23/2012 Normal [facility] CHEMISTRY Chloride Lvl 113 95 - 109 03/23/2012 [facility] CHEMISTRY Calcium Lvl 7.8 8.5 - 10.5 03/23/2012 LOW [facility] CHEMISTRY Glucose Lvl 133 70 - 99 03/23/2012 [place] <sup>4</sup>Interpretive Data: Adult ref erence range values reflect the clinical guidelines
of the [place] [employer]. [facility] CHEMISTRY BUN 7 7 - 22 03/23/2012 Normal [facility] CHEMISTRY AGAP 16.7 10.0 - 20.0 03/23/2012 Normal [facility] CHEMISTRY Phosphorus 2.2 2.5 - 4.5 03/23/2012 LOW [facility] CHEMISTRY Magnesium Lvl 1.8 1.8 - 2.4 03/23/2012 Normal [facility] CHEMISTRY Ca Norm 1.22 1.16 - 1.30 03/23/2012 Normal [facility] CHEMISTRY Ca Ion 1.16 1.16 - 1.30 03/23/2012 Normal [facility] CHEMISTRY Ca Norm mgdL 4.88 4.65 - 5.20 03/23/2012 Normal [facility] CHEMISTRY Ca Ion mgdL 4.64 4.65 - 5.20 03/23/2012 [facility] HEMATOLOGY PT 15.4 12.0 - 14.7 03/23/2012 [facility] HEMATOLOGY INR 1.20 0.85 - 1.17 03/23/2012 [facility] <sup>7</sup>Interpretive Data: RECOMMEND ED RANGES FOR PROTIME INR:
2.0-3.0 for most medical and surgical thromboembolic states.
2.5-3.5 for artificial heart valves and recurrent embolism.

INR SHOULD BE USED ONLY FOR PATIENTS ON STABLE ANTICOAGULANT THERAPY. [facility] HEMATOLOGY PTT 32.2 22.9 - 35.8 03/23/2012 Normal <sup>9</sup>Interpretive Data: Heparin T herapeutic Range: 57 - 92 Seconds [facility] HEMATOLOGY WBC 7.8 3.7 - 10.4 03/23/2012 Normal [facility] HEMATOLOGY Hgb 11.8 12.0 - 16.0 03/23/2012 [facility] HEMATOLOGY RBC 3.77 4.20 - 5.40 03/23/2012 [facility] HEMATOLOGY Hct 34.0 36.0 - 48.0 03/23/2012 [facility] HEMATOLOGY MCH 31.4 27.0 - 31.0 03/23/2012 [facility] HEMATOLOGY Platelet 78 133 - 450 03/23/2012 [facility] HEMATOLOGY MCV 90.4 81.0 - 99.0 03/23/2012 Normal [facility] HEMATOLOGY RDW 13.6 11.5 - 14.5 03/23/2012 [facility] HEMATOLOGY MCHC 34.7 32.0 - 36.0 03/23/2012 Normal [facility] HEMATOLOGY MPV 10.4 7.4 - 10.4 03/23/2012 [facility] HEMATOLOGY Segs 80.1 45.0 - 75.0 03/23/2012 [facility] HEMATOLOGY Lymphocytes 15.4 20.0 - 40.0 03/23/2012 [facility] HEMATOLOGY Monocytes 4.3 2.0 - 12.0 03/23/2012 Normal [facility] HEMATOLOGY Monocytes # 0.3 0.0 - 0.8 03/23/2012 Normal [facility] HEMATOLOGY Basophils # 0.0 0.0 - 0.2 03/23/2012 Normal [facility] HEMATOLOGY Eosinophils # 0.0 0.0 - 0.5 03/23/2012 Normal [facility] HEMATOLOGY Basophils 0.2 0.0 - 1.0 03/23/2012 Normal [facility] HEMATOLOGY Eosinophils 0.0 0.0 - 4.0 03/23/2012 Normal [facility] HEMATOLOGY Segs-Bands # 6.2 1.5 - 8.1 03/23/2012 Normal [facility] HEMATOLOGY Lymphocytes # 1.2 1.0 - 5.5 03/23/2012 Normal [facility] HEMATOLOGY ASA Effect Plt 466 03/22/2012 NA [...] higher ARU values than ASA taken alone. [facility] HEMATOLOGY Plav Effect Plt 51 03/22/2012 NA [...] GP IIb/IIIa Inhibitor, e.g. ReoPro or Integrilin [facility] Microbiology Culture: Urine 03/22/2012 [facility] Microbiology Culture: Resistant Acin etobacter Screen 03/22/2012 [facility] Microbiology Culture: MRSA 03/22/2012 [facility] CHEMISTRY Chloride Lvl 113 95 - 109 03/22/2012 HI [facility] CHEMISTRY CO2 22 24 - 32 03/22/2012 LOW [facility] CHEMISTRY Calcium Lvl 7.6 8.5 - 10.5 03/22/2012 LOW [facility] CHEMISTRY AGAP 13.8 10.0 - 20.0 03/22/2012 Normal [facility] CHEMISTRY Potassium Lvl 3.8 3.5 - 5.1 03/22/2012 Normal [facility] CHEMISTRY Creatinine Lvl 0.7 0.5 - 1.4 03/22/2012 Normal [facility] CHEMISTRY Sodium Lvl 145 135 - 145 03/22/2012 Normal [facility] CHEMISTRY BUN 7 7 - 22 03/22/2012 Normal [facility] CHEMISTRY Glucose Lvl 116 70 - 99 03/22/2012 [facility] <sup>5</sup>Interpretive Data: Adult ref erence range values reflect the clinical guidelines
of the [place] [employer]. [facility] CHEMISTRY Phosphorus 2.4 2.5 - 4.5 03/22/2012 LOW [facility] CHEMISTRY Magnesium Lvl 1.8 1.8 - 2.4 03/22/2012 Normal [facility] HEMATOLOGY Hct 35.2 36.0 - 48.0 03/22/2012 LOW [facility] HEMATOLOGY Hgb 11.9 12.0 - 16.0 03/22/2012 LOW [facility] URINALYSIS UA Urobilinogen 0.1 - 1.0 03/22/2012 NA [facility] URINALYSIS UA Nitrite Negat aristeo (03/22/2012 14:40:00) Negati ve 03/22/2012 Normal [facility] URINALYSIS UA Bili Negat aristeo *NA* (03/22/2012 14:40:00) Negati ve 03/22/2012 NA [facility] URINALYSIS UA Leuk Est Trace *ABN* (03/22/2012 14:40:00) Negati ve 03/22/2012 ABN [facility] URINALYSIS UA Blood Trace *ABN* (03/22/2012 14:40:00) Negati ve 03/22/2012 ABN [facility] URINALYSIS UA Sq Epi Occas ional /LPF *NA* (03/22/2012 14:40:00) Few 03/22/2012 NA [facility] URINALYSIS UA RBC 42 0 - 2 03/22/2012 [facility] URINALYSIS UA WBC 5 0 - 5 03/22/2012 Normal [facility] URINALYSIS UA Ketones Negat aristeo mg/dL *NA* (03/22/2012 14:40:00) Negati ve 03/22/2012 NA [facility] URINALYSIS UA Turbidity Clear (03/22/2012 14:40:00) Clear 03/22/2012 Normal [facility] URINALYSIS UA Glucose Negat aristeo mg/dL *NA* (03/22/2012 14:40:00) Negati ve 03/22/2012 NA [facility] URINALYSIS UA Protein Negat aristeo mg/dL (03/22/2012 14:40:00) Negati ve 03/22/2012 Normal [facility] URINALYSIS UA pH 6.5 5.0 - 8.0 03/22/2012 Normal [facility] URINALYSIS UA Spec Grav 1.038 <=1.030 03/22/2012 [facility] URINALYSIS UA Color Yello w *NA* (03/22/2012 14:40:00) Yellow 03/22/2012 NA [facility] CHEMISTRY POC A K 3.4 3.5 - 5.1 03/22/2012 LOW [facility] CHEMISTRY POC A Na 137 135 - 145 03/22/2012 [facility] CHEMISTRY POC A Hct 29.0 36.0 - 48.0 03/22/2012 [facility] CHEMISTRY POC A Ca Ion 1.08 1.16 - 1.30 03/22/2012 [facility] CHEMISTRY POC A LA 1.0 0.5 - 2.2 03/22/2012 [facility] CHEMISTRY POC A Glu 95 70 - 99 03/22/2012 [facility] CHEMISTRY POC A O2 Sat 99.0 95.0 - 100.0 03/22/2012 [facility] CHEMISTRY POC A BE -1 -2-2 - 2 03/22/2012 [facility] CHEMISTRY POC A PO2 151 80 - 100 03/22/2012 [facility] CHEMISTRY POC A PCO2 41 35 - 45 03/22/2012 [facility] CHEMISTRY POC A HCO3 24 22 - 26 03/22/2012 [facility] CHEMISTRY POC A pH 7.38 7.35 - 7.45 03/22/2012 Normal [facility] CHEMISTRY POC A Source ART 03/22/2012 [facility] CHEMISTRY POC A Temp 37.0 03/22/2012 [facility] HEMATOLOGY ASA Effect Plt 478 03/22/2012 NA [...] higher ARU values than ASA taken alone. [facility] HEMATOLOGY Plav Effect Plt 23 03/22/2012 NA [...] GP IIb/IIIa Inhibitor, e.g. ReoPro or Integrilin [facility] BLOOD BANK RESULTS RBC product Product available (03/22/2012 10:00:00) 03/22/2012 Normal [facility] BLOOD BANK RESULTS ABO/Rh A POS 03/22/2012 Unknown [facility] BLOOD BANK RESULTS Antibody Scrn Negative (03/22/2012 07:00:00) 03/22/2012 Normal [facility] CHEMISTRY Chloride Lvl 105 95 - 109 03/08/2012 Normal [facility] CHEMISTRY Calcium Lvl 9.0 8.5 - 10.5 03/08/2012 Normal [facility] CHEMISTRY CO2 26 24 - 32 03/08/2012 Normal [facility] CHEMISTRY Bili Total 0.5 0.2 - 1.3 03/08/2012 Normal [facility] CHEMISTRY AST 64 0 - 37 03/08/2012 HI [facility] CHEMISTRY Total Protein 8.3 6.4 - 8.4 03/08/2012 Normal [facility] CHEMISTRY Alk Phos 109 39 - 136 03/08/2012 Normal [facility] CHEMISTRY Sodium Lvl 142 135 - 145 03/08/2012 Normal [facility] CHEMISTRY Glucose Lvl 89 70 - 99 03/08/2012 Normal <sup>6</sup>Interpretive Data: Adult ref erence range values reflect the clinical guidelines
of the [place] [employer]. [facility] CHEMISTRY Creatinine Lvl 0.9 0.5 - 1.4 03/08/2012 Normal [facility] CHEMISTRY BUN 10 7 - 22 03/08/2012 Normal [facility] CHEMISTRY ALT 65 0 - 65 03/08/2012 Normal [facility] CHEMISTRY Albumin Lvl 3.7 3.5 - 5.0 03/08/2012 Normal [facility] CHEMISTRY Potassium Lvl 3.7 3.5 - 5.1 03/08/2012 Normal [facility] CHEMISTRY A/G Ratio 0.8 0.7 - 1.6 03/08/2012 Normal [facility] CHEMISTRY AGAP 14.7 10.0 - 20.0 03/08/2012 Normal [facility] CHEMISTRY B/C Ratio 11 6 - 25 03/08/2012 Normal [facility] CHEMISTRY Globulin 4.6 2.0 - 4.0 03/08/2012 HI [facility] HEMATOLOGY Large Plt Sligh t *ABN* (03/08/2012 14:45:00) None S een 03/08/2012 ABN [facility] HEMATOLOGY Basophils # 0.0 0.0 - 0.2 03/08/2012 Normal [facility] HEMATOLOGY Segs 55.0 45.0 - 75.0 03/08/2012 Normal [facility] HEMATOLOGY RBC Morph Alison l (03/08/2012 14:45:00) 03/08/2012 Normal [facility] HEMATOLOGY Plt Morph Alison l (03/08/2012 14:45:00) 03/08/2012 Normal [facility] HEMATOLOGY Monocytes # 0.6 0.0 - 0.8 03/08/2012 Normal [facility] HEMATOLOGY Eosinophils # 0.1 0.0 - 0.5 03/08/2012 Normal [facility] HEMATOLOGY Basophils 0.5 0.0 - 1.0 03/08/2012 Normal [facility] HEMATOLOGY Lymphocytes # 2.6 1.0 - 5.5 03/08/2012 [facility] HEMATOLOGY Segs-Bands # 4.0 1.5 - 8.1 03/08/2012 Normal [facility] HEMATOLOGY Eosinophils 1.4 0.0 - 4.0 03/08/2012 Normal [facility] HEMATOLOGY Lymphocytes 35.5 20.0 - 40.0 03/08/2012 Normal [facility] HEMATOLOGY Monocytes 7.6 2.0 - 12.0 03/08/2012 Normal [facility] HEMATOLOGY PTT 34.8 22.9 - 35.8 03/08/2012 Normal <sup>10</sup>Interpretive Data: Heparin Therapeutic Range: 57 - 92 Seconds [facility] HEMATOLOGY PT 14.7 12.0 - 14.7 03/08/2012 Normal [facility] HEMATOLOGY INR 1.15 0.85 - 1.17 03/08/2012 Normal <sup>8</sup>Interpretive Data: RECOMMEND ED RANGES FOR PROTIME INR:
2.0-3.0 for most medical and surgical thromboembolic states.
2.5-3.5 for artificial heart valves and recurrent embolism.

INR SHOULD BE USED ONLY FOR PATIENTS ON STABLE ANTICOAGULANT THERAPY. [facility] HEMATOLOGY RDW 13.2 11.5 - 14.5 03/08/2012 Normal [facility] HEMATOLOGY WBC 7.3 3.7 - 10.4 03/08/2012 Normal [facility] HEMATOLOGY MCHC 34.5 32.0 - 36.0 03/08/2012 Normal [facility] HEMATOLOGY RBC 4.62 4.20 - 5.40 03/08/2012 Normal [facility] HEMATOLOGY MCV 90.5 81.0 - 99.0 03/08/2012 Normal [facility] HEMATOLOGY MCH 31.3 27.0 - 31.0 03/08/2012 [facility] HEMATOLOGY Hgb 14.4 12.0 - 16.0 03/08/2012 Normal [facility] HEMATOLOGY Hct 41.8 36.0 - 48.0 03/08/2012 Normal [facility] HEMATOLOGY MPV 12.5 7.4 - 10.4 03/08/2012 [facility] HEMATOLOGY Platelet 120 133 - 450 03/08/2012 LOW [facility] Pathology Reports No Data Provided for This [...] cholecystectomy. Vincenzo Rosario MD On 02/16/2020 08:48:27; [id number] 02/16/2020 [facility] Chest 1 v for Placement DX [...] visualized. Eduin Castañeda MD On 02/16/2020 05:29:40; [id number] 02/16/2020 [facility] Retroperitoneal Complete US Re port was [...] ultrasound. Jeison Copeland MD On 02/16/2020 16:56:42; [id number] PROCEDURE INFORMATION: Exam: US Retroperitoneal; Complete; Kidneys [...] ultrasound. Jeison Copeland MD On 02/16/2020 16:54:24; [id number] 02/16/2020 [facility] Brain wo contrast CT Radiation Dose [...] lobes. Meagan Romero MD On 02/16/2020 01:54:04; [id number] 02/16/2020 [facility] Chest 1view DX PROCEDURE INFOR MATION: [...] findings. Jonas Rutledge MD On 02/16/2020 01:04:43; [id number] 02/16/2020 [facility] Hip 2/3 views uni w pelvis DX Patient Name: DIANE SIMEON : 1955; Age: 62 years y/o Female MR: [id number] Study: 2 view left hip 11/22/2017 9:52 [...] in the left hip. SL: [id number]-PC 11/22/2017 [facility] Ext Lower Venous Doppler Bilat US [...] include: greater and lesser saphenous veins SL: [id number] 11/22/2017 [facility] Breast Mammo Scrn TYLER incl CAD [...] Mammographic views were obtained using digital acquisition. [employer] Version 1.3 was utilized for computer aided detection. FINDINGS: There are scattered fibroglandular densities in both breasts. Benign appearing densities are noted in both breasts. No significant masses, calcifications, or other findings are seen in either breast. IMPRESSION: BENIGN RECOMMENDATION:There is no mammographic evidence of malignancy. A 1 year screening mammogram is recommended.(11/18/2018) SUMMARY: Prior mammograms would be of added benefit to document superintendent terminal stability. This aids in establishing benignity. The patient should make additional efforts to locate her prior exams. An addendum will be made if additional films are provided. This exam was interpreted at [id number] for [facility]. Lemuel anguiano/perry:11/28/2017 08:04:21 [employer] Director(s): Tessa Raymundo [facility] letter sent: BI-RADS 1/2 Mammogram BI-RADS: 2 Benign 11/17/2017 [facility] Abdomen complete US Patient Na me: DIANE DIGGS : 1955; Age: 61 years y/o Female MR: [id number] Study: Abdomen complete US 09/19/2016 3:00 PM EPIDEMIOLOGY INTERN Ordering Physician: Alexis Tim MD Clinical Indication: [...] calcification is present within the spleen. SL: [id number] 09/19/2016 [facility] Chest 1view DX EXAM: Chest 1vi ew DX DATE: 09/18/2016 2:37 PM EPIDEMIOLOGY INTERN INDICATION: Chest pain COMPARISON: 04/28/2016. IMPRESSION: The patient is rotated. Stable prominent cardiac silhouette and mediastinum. Tortuous atherosclerotic thoracic aorta. No focal consolidation, significant pleural effusion or pneumothorax. SL: [id number] 09/18/2016 [facility] Brain wo contrast CT EXAM: CT BRAIN WITHOUT CONTRAST DATE: 09/18/2016 2:18 PM EPIDEMIOLOGY INTERN INDICATION: Altered level of consciousness ADDITIONAL INFORMATION [...] performed for complete assessment. SL: [id number] 09/18/2016 [facility] Abdomen RUQ US PROCEDURE: RIGH T [...] cholecystectomy. Pancreas not visualized. SL: [id number] 04/29/2016 [facility] Chest 1view DX EXAM: XR CHEST [...] limits. IMPRESSION: No acute cardiopulmonary abnormality. SL: [id number] 04/28/2016 [facility] Consultation Notes No Data Provided for This Section Discharge Summaries No Data Provided for This Section History and Physicals No Data Provided for This Section Vital Signs Vital Sign Value Date Comments Source Respitory Rate 13 02/26/2020 [facility] Systolic (mm Hg) 112 02/26/2020 [facility] Diastolic (mm Hg) 53 02/26/2020 [facility] Respitory Rate 12 02/26/2020 [facility] Systolic (mm Hg) 114 02/26/2020 [facility] Diastolic (mm Hg) 61 02/26/2020 [facility] Respitory Rate 11 02/26/2020 [facility] Systolic (mm Hg) 107 02/26/2020 [facility] Diastolic (mm Hg) 70 02/26/2020 [facility] Temperature Oral (F) 98.1 F 02/26/2020 [facility] Temperature Oral (F) 97.8 F 02/26/2020 [facility] Temperature Oral (F) 98.8 F 02/23/2020 [facility] Heart Rate 65 02/18/2020 [facility] Heart Rate 66 02/18/2020 [facility] Heart Rate 68 02/18/2020 [facility] Height 152.4 cm 02/16/2020 [facility] BMI Calculated 25.44 02/16/2020 [facility] Weight 59.091 02/16/2020 [facility] Systolic (mm Hg) 127 10/19/2016 [facility] Diastolic (mm Hg) 82 10/19/2016 [facility] Respitory Rate 13 10/19/2016 [facility] Respitory Rate 17 10/19/2016 [facility] Systolic (mm Hg) 127 10/19/2016 [facility] Diastolic (mm Hg) 66 10/19/2016 [facility] Respitory Rate 16 10/19/2016 [facility] Systolic (mm Hg) 110 10/19/2016 [facility] Diastolic (mm Hg) 67 10/19/2016 [facility] Heart Rate 84 10/19/2016 [facility] Temperature Oral (F) 98.0 F 10/18/2016 [facility] Heart Rate 71 10/18/2016 [facility] BMI Calculated 35.33 10/18/2016 [facility] Weight 79.347 10/18/2016 [facility] Height 149.86 cm 10/18/2016 [facility] Systolic (mm Hg) 124 09/21/2016 [facility] Diastolic (mm Hg) 78 09/21/2016 [facility] Temperature Oral (F) 97.9 F 09/21/2016 [facility] Respitory Rate 14 09/21/2016 [facility] Heart Rate 77 09/21/2016 [facility] Systolic (mm Hg) 124 09/21/2016 [facility] Diastolic (mm Hg) 72 09/21/2016 [facility] Respitory Rate 5 09/21/2016 [facility] Systolic (mm Hg) 128 09/21/2016 [facility] Diastolic (mm Hg) 76 09/21/2016 [facility] Respitory Rate 16 09/21/2016 [facility] Heart Rate 79 09/21/2016 [facility] Heart Rate 74 09/21/2016 [facility] Temperature Oral (F) 98.3 F 09/21/2016 [facility] Temperature Oral (F) 98.1 F 09/21/2016 [facility] Weight 81.818 09/18/2016 [facility] BMI Calculated 36.43 09/18/2016 [facility] Height 149.86 cm 09/18/2016 [facility] Systolic (mm Hg) 128 04/29/2016 [facility] Diastolic (mm Hg) 60 04/29/2016 [facility] Respitory Rate 18 04/29/2016 [facility] Temperature Oral (F) 98.2 F 04/29/2016 [facility] Systolic (mm Hg) 125 04/29/2016 [facility] Diastolic (mm Hg) 65 04/29/2016 [facility] Temperature Oral (F) 98.3 F 04/29/2016 [facility] Respitory Rate 18 04/29/2016 [facility] Temperature Oral (F) 98.2 F 04/29/2016 [facility] Respitory Rate 20 04/29/2016 [facility] Systolic (mm Hg) 115 04/29/2016 [facility] Diastolic (mm Hg) 51 04/29/2016 [facility] Heart Rate 92 04/29/2016 [facility] Weight 81.818 04/29/2016 [facility] BMI Calculated 36.43 04/29/2016 [facility] Height 149.86 cm 04/29/2016 [facility] Respitory Rate 14 03/23/2012 [facility] Diastolic (mm Hg) 66 03/23/2012 [facility] Systolic (mm Hg) 112 03/23/2012 [facility] Respitory Rate 17 03/23/2012 [facility] Diastolic (mm Hg) 57 03/23/2012 [facility] Respitory Rate 15 03/23/2012 [facility] Systolic (mm Hg) 112 03/23/2012 [facility] Systolic (mm Hg) 112 03/23/2012 [facility] Diastolic (mm Hg) 62 03/23/2012 [facility] Temperature Oral (F) 97.1 F 03/23/2012 [facility] Temperature Oral (F) 97.1 F 03/23/2012 [facility] Temperature Oral (F) 97.1 F 03/23/2012 [facility] Heart Rate 100 03/22/2012 [facility] Height 149.86 cm 03/22/2012 [facility] Weight 90.909 03/22/2012 [facility] Height 149.86 cm 03/08/2012 [facility] Weight 90.909 03/08/2012 [facility] Encounters Location Location Details Encounter Type Encounter Number Reason For Visit Attending Provider ADM Date DC Date Status Source [facility] Inpatient [id number] [place] DAY 03/22/2012 03/23/[address] [facility] Emergency [id number] Veda Grubbsqi 04/29/2016 04/29/2016 [facility] Inpatient [id number] Alexis Tim 09/18/2016 09/21/2016 [facility] Bedded Outpatient [id number] Perico Duenas 10/19/2016 10/19/2016 [facility] Outpatient [id number] Alexis Tim 11/17/2017 11/18/2017 [facility] Inpatient [id number] Felix Rock 02/16/2020 02/27/2020 [facility] Procedures Procedure Code Date Perfomer Comments Source Biopsy of liver [id number] [facility] section [id number] [facility] Esophagogastroduodenoscopy [id number] [facility] Removal of gallstones from liver [id number] [facility] Assessment and Plan Assessment and Plan Date Source Extracted from:Title: Clinical Document Author: Andrsé Hicks MD Date: 02/26/20 Progress Note Nephrology [...] ER physician, based on this will consult park keeper, planned for central line and initiation of [...]
--- OUTSIDE RECORDS SUMMARY | 2020-03-15 11:23 | XMS REPORT | Continuity of Care Document ---
Author Author [facility] Organization [facility] Address [address] [place] [address] Phone Unavailable Care Team Providers Care Publications Designer Name Role Phone MD Fantasma CHAN [facility] PCP Carolyn HARPER Attphys Unavailable Gail JAQUEZ AMBICA Attphys Unavailable Fantasma Rock Attphys Praful Tim Attphys Perico Duenas Attphys Champ Cid Attphys Fantasma Rock Admphys Perico Duenas Admphys Praful Tim Admphys Payers Payer Name Policy Type Policy Number Effective Date Expiration Date S vinny [employer] [place] Ppo [id number] 2018 00:00:00 [facility] Problems Condition Name Condition Details Condition Category Status Onset Date Resolution Date Last Treatment Date Treating Clinician Comments Source AMS AMS Active 02/15/2020 [facility] Active 2020-02-15 [...] [facility] Active 2016-10-11 00:00:00 2016-10-19 07:49:00 hCi [facility]te UNK UNK Active 10/11/2016 [facility] Active 2016-10-11 00:00:00 2016-10-12 09:52:00 M kike Almonte ALTERED MENTAL STATUS ALTE RED MENTAL STATUS Active 09/18/2016 [facility] Active 2016-09-18 00:00:00 2016-09-21 13:30: 00 Chi [facility] RAPID HEARTRATE RAPI D HEARTRATE Active 04/28/2016 [facility] Active 2016-04-28 00:00:00 2016-04-29 00:00:00 Chi [facility] LARGE LEFT CAVERNOUS ANEURYSM LARGE LEFT CAVERNOUS ANEURYSM Active 09/16/2011 [facility] Diagnosis Active 2011-09-16 00:00:00 2012-03-22 14:06:00 [facility] Problem Condition Active [facility] Anxiety (finding) Anxi ety (finding) Active Problem 02/28/2020 [facility] Problem Active 2020-02-28 22:38:20 Chi [facility] Cerebrovascular accident (disorder) Cerebrovascular accident (disorder) Active Problem 02/28/2020 [facility] Problem Active 2020-02-28 22:38:20 [facility] Cirrhosis of liver (disorder) Cirrhosis of liver (disorder) Active Problem 02/28/2020 [facility] Problem Active 2020-02-28 22:38:20 [facility] History of cholecystectomy (situation) History of cholecystectomy (situation) Active Problem 02/28/2020 [facility] Problem Active 2020-02-28 22:38:20 [facility] Hypertensive disorder, systemic arterial (disorder) Hypertensive disorder, systemic arterial (disorder) Active Problem 02/28/2020 [facility] Problem Active 2020-02-28 22:38:20 Chi [facility] Seizure (finding) Seiz ure (finding) Active Problem 02/28/2020 [facility] Problem Active 2020-02-28 22:38:20 [facility] History of cholecystectomy His tory of cholecystectomy Active Problem 03/25/2012 [facility] Problem Active 2012-03-25 08:12:43 [facility] HTN - Hypertension HTN - Hypertension Active Problem 03/25/2012 [facility] Problem Active 2012-03-25 08 :12:43 Chi [facility] 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 [facility] Diagnosis Active 2012-03-22 14:06:00 Chi [facility] ALTERED MENTAL STATUS, UNSPECIFIED ALTERED MENTAL STATUS, UNSPECIFIED Active [facility] Diagnosis Active 2020-03-02 21:48:00 [facility] ACUTE AND SUBACUTE HEPATIC FAILURE WITHO ACUTE AND SUBACUTE HEPATIC FAILURE WITHO Active [facility] Diagnosis Active 2020-03-02 21:48:00 [facility] Encounter for screening mammogram for malignant neopla sm of breast Encounter for screening mammogram for malignant neoplasm of breast 11/29/2017 02/23/2018 [facility] Problem 2017-11-29 03:23:41 2017 13:55:01 2018-02-23 13:55:01 [facility] Discharge Diagnosis: Palpitations Discharge Diagnosis: Palpitations 04/29/2016 05/02/2016 [facility] Problem 2 05:00:00 2016-05-02 03:23:32 2016-05-02 03:23:32 [facility] Allergies, Adverse Reactions, Alerts Allergy Name Allergy Type Status Severity Reaction(s) Onset Date Inacti ve Date Treating Clinician Comments Source No Known Allergies DA Active U 2019-08-15 00:00:00 [facility] No Known Allergies DA Active U 2019-07-19 00:00:00 [facility] No Known Drug Intolerances DA Active U 2010-10-13 00:00:0 0 [facility] No Known Medication Allergies No Known Medication Allergies Active [facility] Social History Social Habit Start Date Stop Date Quantity Comments Source Social History 2016-10-18 20:37:01 2016-10-18 20:37:01 [facility] Sex Assigned At 1955 00:00:00 1955 00:00:00 Female [facility] Medications Ordered Medication Name Filled Medication Name Start Date Stop Da te Current Medication? Ordering Clinician Indication Dosage Frequency Signature (SIG) Comments Components Source Levetiracetam 2020-02-27 02:00:00 No Notes: (Same as:Ismael) [facility] pantoprazole 40 MG Enteric Coated Tablet [Protonix] 02-25 23:15:00 Yes 40 mg = 1 tab, P O, Daily, # 30 tab, 0 Refill(s), Pharmacy: [facility] STORE #[id number], 152.4, cm, 02/15/20 22:51:00 CDT, Height, 59.091, kg, 02/15/20 22:51:00 CDT, Weight [facility] Jerome gonsalesgayla thiamine 100 mg oral tablet 2020-02-26 23:03:00 Yes 100 mg = 1 tab, PO, Daily, X 30 day, # 30 tab, 0 Refill(s), [id number], 152.4, cm, 02/15/20 22:51:00 CDT, Height, 59.091, kg, 02/15/20 22:51:00 CDT, Weight [facility] midodrine 5 mg oral tablet 2020-02-26 23:03:00 Yes 10 mg = 2 tab, PO, TID, # 180 tab, 0 Refill(s), [id number], 152.4, cm, 02/15/20 22:51:00 CDT, Height, 59.091, kg, 02/15/20 22:51:00 CDT, Weight [facility] [place] Potassium Chloride 2020-02-26 13:55:00 No Notes: (Same as: Ramos ) "Do Not Crush" Give with food and full glass of water For patients unable to swallow tablet, dissolve in one half glass of water. Allow about 2 minutes for the tablets to disintegrate. Stir before giving to prepare slurry and administer. Please exclude Patient s with feeding tube less than 14 Barb[place] (Dobhoff, J-tube etc) and pediatric and patients. [facility] potassium phosphate-sodium phosphate 250 mg-280 mg-160 mg oral powder for reconstitution 2020-02-26 13:55:00 No Notes: (Same as: Phos-NaK) Each 1.5 gm pkt has 250mg phosphorous. Mix w/2.5oz water and stir. [facility] potassium phosphate 2020-02-26 13:55:00 No Notes: (Same as: K Phosphate.) Do not infuse phosphorous concurrently in the same line as TPN or IVF that contains calcium. For double lumen central lines, phosphorous may be infused in a separate lumen from TPN. 1 mMol phoshate has 1.47 mEq potassium Infuse over 4 hours [facility] sodium phosphate 2020-02-26 13:55:00 No Notes: Infuse over 4 hour. Do not infuse phosphorous concurrently in the same line as TPN or IVF that contains calcium. For double lumen central lines, phosphorous may be infused in a separate lumen from TPN. [facility] Magnesium Sulfate 2020-02-26 13:55:00 No Notes: WASTE: F/P - Sink; E - Municipal Trash Bin [facility] Magnesium Oxide 2020-02-26 13:55:00 No Notes: (Same as: Mag-Ox 400) Magnesium oxide [id number] elemental magnesium Dose=____mg magnesium oxide (___mg elemental magnesium) [facility] Calcium Gluconate 2020-02-26 13:55:00 No Notes: WASTE: F/P - Sink; E - Municipal Trash [facility] Potassium Chloride 2020-02-25 13:49:00 No Notes: (Same as: KCL) Infuse no faster than 10 mEq/hr if given peripherally. [facility] sodium phosphate 2020-02-25 13:49:00 No Notes: Infuse over 4 hour. Do not infuse phosphorous concurrently in the same line as TPN or IVF that contains calcium. For double lumen central lines, phosphorous may be infused in a separate lumen from TPN. [facility] gayla potassium phosphate 2020-02-25 13:49:00 No Notes: (Same as: K Phosphate.) Do not infuse phosphorous concurrently in the same line as TPN or IVF that contains calcium. For double lumen central lines, phosphorous may be infused in a separate lumen from TPN. 1 mMol phoshate has 1.47 mEq potassium Infuse over 4 hours [facility] potassium phosphate-sodium phosphate 250 mg-280 mg-160 mg oral powder for reconstitution 2020-02-25 13:49:00 No Notes: (Same as: Phos-NaK) Each 1.5 gm pkt has 250mg phosphorous. Mix w/2.5oz water and stir. [facility] Magnesium Sulfate 2020-02-25 13:49:00 No Notes: WASTE: F/P - Sink; E - Municipal Trash Bin [facility] Magnesium Oxide 2020-02-25 13:49:00 No Notes: (Same as: Mag-Ox 400) Magnesium oxide [id number] elemental magnesium Dose=____mg magnesium oxide (___mg elemental magnesium) [facility] Calcium Gluconate 2020-02-25 13:49:00 No Notes: Contains: calcium gluconate 20mg/mL NaCl 0.67% 50mL WASTE: F/P - Sink; E - [employer] Trash [facility] Calcium Carbonate 500 MG Chewable Tablet 2020-02-25 13:49:00 No Notes: (Same As: Tums) Calcium Carbonate 500 mg = 200 mg elemental calcium Dose = mg calcium carbonate ( mg elemental calcium) [facility] D5W 500 mL 2020-02-25 11:13:00 No 500 mL, Rate: 100 ml/hr, Infuse over: 5 hr, Route: IV, Dosing Weight 59.091 kg, Total Volume: 500, Start date: 02/25/20 6:13:00 CDT, Duration: 30 day, Stop date: 03/26/20 6:12:00 CDT, 1.6, m2, 0 [facility] potassium phosphate 2020-02-25 11:11:00 No Notes: (Same as: K Phosphate.) Do not infuse phosphorous concurrently in the same line as TPN or IVF that contains calcium. For double lumen central lines, phosphorous may be infused in a separate lumen from TPN. 1 mMol phoshate has 1.47 mEq potassium Infuse over 4 hours [facility] Magnesium Sulfate 2020-02-25 11:11:00 No Notes: WASTE: F/P - Sink; E - Municipal Trash Bin [facility] potassium phosphate 2020-02-23 17:29:00 No Notes: (Same as: K Phosphate.) Do not infuse phosphorous concurrently in the same line as TPN or IVF that contains calcium. For double lumen central lines, phosphorous may be infused in a separate lumen from TPN. 1 mMol phoshate has 1.47 mEq potassium Infuse over 4 hours [facility] Lactulose 667 MG/ML Oral Solution 2020-02-21 18:00:00 No Notes: (Same as:Chronulac) [facility] Lactulose 667 MG/ML Oral Solution 2020-02-21 14:00:00 No Notes: (Same as:Chronulac) [facility] Metronidazole 2020-02-20 19:00:00 No Notes: (Same as: Flagyl) Avoid alcohol. [facility] Sodium Chloride 0.9% IV 250 mL + octreotide 1,250 microgram 2020-02-19 12:00:00 No 250 mL, Ra te: 10 ml/hr, Infuse over: 25 hr, Route: IV, Dosing Weight 59.091 kg, Total Volume: 250, Start date: 02/19/20 7:00:00 CDT, Duration: 30 day, Stop date: 03/20/20 6:59:00 CDT, 1.6, m2 [facility] octreotide 1,250 microgram + Sodium Chloride 0.9% IV 248.75 mL 2020-02-19 11:50:00 No 248.75 mL, Rate: 10 ml/hr, Infuse over: 25 hr, Route: IV, Dosing Weight 59.091 kg, Total Volume: 250, Start date: 02/19/20 6:50:00 CDT, Duration: 30 day, Stop date: 03/20/20 6:49:00 CDT, 1.6, m2, 0 [facility] pantoprazole additive 80 mg + Sodium Chloride 0.9% IV 100 mL 2020-02-19 11:49:00 No Notes: For IV push reconstitute with 10 ml 0.9% sodium chloride and push over 2 minutes. (Same as: Protonix) [facility] Thiamine 2020-02-18 18:19:00 No Notes: (Mitchell e As: Vitamin B1) [facility] Vitamin K 1 2020-02-18 18:18:00 No Notes: Same as: Vitamin K, Mephyton Combine FILTERED phytonadione injection (total 50 mg/5 mL)with Simple Syrup (45mL) in selvin bottle. Shake well prior to dispensing. Expiration: 90 days at [facility] Plavix 2020-02-18 14:00:00 No Notes: (Same As: Plavix) [facility] Folic Acid 2020-02-18 14:00:00 No Notes: (S laura as: Folvite) [facility] Vasopressin (CORRECTION) 2020-02-17 23:56:00 No Notes: (Same As: Pitressin, Vasostrict) [facility] albumin human 25% intravenous solution 2020-02-17 23:00:00 No Notes: Lot #: Mfg: (Same as: Plasbumin-25) "blood product derivative" WASTE: F/P - Red; E -Red MEDICATION WASTE Product Size: 25 gm Product Wasted: ___ gm Me morial [facility] Lactulose 667 MG/ML Oral Solution 2020-02-17 22:00:00 No Notes: (Same as:Chronulac) [facility] Rocephin + sterile water 10 mL 2020-02-17 08:00:00 No Notes: (Same As: Rocephin). Use with 100 mL NS and infuse over 30 min MEDICATION WASTE Product Size: 1000 mg Product Wasted: ___ mg [facility] Lactulose 667 MG/ML Oral Solution 2020-02-17 05:00:00 No Notes: (Same as:Chronulac) [facility] rifaximin 2020-02-17 02:00:00 No Notes: Mitchell shaffer as: Xifaxan [facility] XIFAXAN 2020-02-16 22:00:00 No Notes: Same as: Xifaxan [facility] riFAXimin 550 mg oral tablet 2020-02-16 21:47:00 Yes 550 mg = 1 tab, PO, BID [facility] pantoprazole 40 MG Enteric Coated Tablet [Protonix] 02-15 21:47:00 No 40 mg = 1 tab, PO, Daily [facility] Furosemide 40 MG Oral Tablet 2020-02-16 21:47:00 No 40 mg = 1 tab, PO, Daily [facility] Lactulose 667 MG/ML Oral Solution 2020-02-16 21:00:00 No Notes: (Same as:Chronulac) [facility] Midodrine 2020-02-16 18:00:00 No Notes: (Sa me [...] date: 03/17/20 6:03:00 CDT, 0 [facility] Glucagon 2020-02-16 11:04:00 No 1 mg, Route: [...] CDT, Stop date: 02/16/20 3:13:00 CDT, 0 [facility] Dextrose 50% Syringe (D50W) 2020-02-16 07:35:00 No 12.5 gm, 25 mL, Route: IVP, Drug Form: INJ, Dosing Weight 59.091, kg, PRN, PRN Blood Glucose Results, Start date: 02/16/20 2:35:00 CDT, Duration: 30 day, Stop date: 03/17/20 2:34:00 CDT, 0 [facility] Glucagon 2020-02-16 07:35:00 No 1 mg, Route: IM, Drug form: PDR/INJ, PRN, Dosing Weight 59.091, kg, PRN Blood Glucose Results, Start date: 02/16/20 2:35:00 CDT, Duration: 30 day, Stop date: 03/17/20 2:34:00 CDT, 0 [facility] Ondansetron 2020-02-16 07:35:00 No Notes: (Same as: Zofran) MEDICATION WASTE Product Size: 4 mg Product Wasted: ___ mg [facility] Melatonin 2020-02-16 07:35:00 No Notes: (Sa me as: Melatonin) [facility] Acetaminophen 2020-02-16 07:35:00 No Notes: Do not exceed 4 gm/day. (Same as: Tylenol) [facility] Lactated Ringers IV 1,000 mL 2020-02-16 07:35:00 No 1,000 mL, Rate: 75 ml/hr, Infuse over: 13.3 hr, Route: IV, Dosing Weight 59.091 kg, Total Volume: 1,000, Start date: 02/16/20 2:35:00 CDT, Duration: 30 day, Stop date: 03/17/20 2:34:00 CDT, 1.6, m2, 0 [facility] Saline Flush 0.9% 2020-02-16 07:35:00 No Notes: (Same as: BD Posiflush) [facility] Ceftriaxone 2020-02-16 07:29:00 No Notes: (Same As: Rocephin). Use with 100 mL NS and infuse over 30 min MEDICATION WASTE Product Size: 1000 mg Product Wasted: ___ mg [facility] Hydralazine 2020-02-16 07:22:00 No Notes: (Same as: Apresoline) Push over 5 minutes [facility] Lactulose 2020-02-16 06:24:00 No Notes: Lactulose 300ml, Water for Irrigation 700ml - total volume = 1000ml [facility] Hydralazine 2020-02-16 06:12:00 No 10 mg, Route: IVP, ONCE, Dosing Weight 59.091, kg, Priority: STAT, Start date: 02/16/20 1:12:00 CDT, Stop date: 02/16/20 1:12:00 CDT [facility] Saline Flush 0.9% 2020-02-16 04:23:00 No Notes: (Same as: BD Posiflush) [facility] Sodium Chloride 0.154 MEQ/ML Injectable Solution 2016-10-19 14:5 5:00 No 1,000 mL, Rate: 25 ml/hr, In fuse over: 40 hr, Route: IV, Dosing Weight 79.347 kg, Total Volume: 1,000, Start date: 10/19/16 8:55:00 PAGE DESIGNER, Duration: 1 day, Stop date: 10/20/16 8:54:00 PAGE DESIGNER [facility] Lactulose 667 MG/ML Oral Solution [Generlac] 2016-10-18 21:01:00 Yes 0 Refill(s) [facility] spironolactone 50 mg oral tablet 2016-10-18 21:00:00 Yes 50 mg = 1 tab, PO, Daily, # 30 tab, 1 Refill(s) Ks ronaldo [facility] Streptococcus pneumoniae serotype 1 caps ular antigen diphtheria [id number] protein conjugate vaccine / Streptococcus pneumoniae serotype 14 capsular antigen diphtheria [id number] protein conjugate vaccine / Streptococcus pneumoniae serotype 18C capsular antigen d 2016-09-21 17:30:00 No Notes: Lightly roll vial (DO NOT SHAKE) before administration. (Same as: Prevnar 13) [facility] ferrous sulfate 325 mg oral enteric coated tablet 2016-09-21 14:28:00 Yes 325 mg = 1 tab, PO, Daily, # 30 tab, 0 Refill(s ) [facility] pantoprazole 40 mg oral enteric coated tablet 2016-09-21 14:26:0 0 Yes 40 mg = 1 tab, PO, Before Dinner, # 30 tab, 0 Refill(s) [facility] levofloxacin 250 mg oral tablet 2016-09-21 14:26:00 Yes 500 mg = 2 tab, PO, NAIN30M, X 5 day, # 10 tab, 0 Refill(s) [facility] Lactulose 667 MG/ML Oral Solution 2016-09-21 14:26:00 Yes 10 gm = 15 mL, PO, BID, X 14 day, # 420 mL, 0 Refill(s) [facility] Levetiracetam 500 MG Oral Tablet [Keppra] 2016-09-21 14:26:00 Yes 500 mg = 1 tab, PO, Q12H, # 60 tab, 0 Refill(s) [facility] Folic Acid 1 MG Oral Tablet 2016-09-21 14:26:00 Yes 1 mg = 1 tab, PO, Daily, # 30 tab, 0 Refill(s) Marcia l [facility] Sodium Chloride 0.154 MEQ/ML Injectable Solution 2016-09-21 13:4 7:00 No 1,000 mL, Rate: 25 ml/hr, In fuse over: 40 hr, Route: IV, Dosing Weight 81.818 kg, Total Volume: 1,000, Start date: 09/21/16 7:47:00 PAGE DESIGNER, Duration: 1 day, Stop date: 09/22/16 7:46:00 PAGE DESIGNER [facility] suzanne Al[facility] Levetiracetam 500 MG Oral Tablet [Keppra] 2016-09-21 03:00:00 No Notes: (Same as:Keppra) [facility] Lactulose 667 MG/ML Oral Solution 2016-09-20 23:00:00 No Notes: (Same as:Chronulac) [facility] Levetiracetam 2016-09-20 16:20:00 No Notes: Same as Keppra Mix with 100 mL NS, LR or D5W MEDICATION WASTE Product Size: 500 mg Product Wasted: ___ mg [facility] Lisinopril 2016-09-20 15:00:00 No Notes: (Same as: Prinivil, Zestril) [facility] Folic Acid 2016-09-20 15:00:00 No Notes: (S laura as: Folvite) [facility] Protonix 2016-09-19 22:30:00 No Notes: Tablet should not be chewed or crushed. (Same as: Protonix) [facility] Levaquin 2016-09-19 22:00:00 No Notes: Do not give w/antacids, dairy pdt & minerals Take 1 hr before or 2 hr after dairy pdt (Same as:Levaquin) [facility] Plavix 2016-09-19 19:30:00 No Notes: (Same As: Plavix) [facility] Saline Flush 0.9% 2016-09-19 02:32:00 No Notes: (Same as: BD Posiflush) [facility] Ondansetron 2016-09-19 02:32:00 No Notes: (Same as: Zofran) MEDICATION WASTE Product Size: 4 mg Product Wasted: ___ mg [facility] Sodium Chloride 0.154 MEQ/ML Injectable Solution 2016-09-19 02:3 2:00 No 1,000 mL, Rate: 75 ml/hr, In fuse over: 13.3 hr, Route: IV, Dosing Weight 81.818 kg, Total Volume: 1,000, Start date: 09/18/16 20:32:00 PAGE DESIGNER, Duration: 30 day, Stop date: 10/18/16 20:31:00 PAGE DESIGNER Ks ronaldo [facility] clopidogrel 75 MG Oral Tablet [...] Weight 81.818 kg, Start date: 09/18/16 17:53:00 PAGE DESIGNER, Duration: 1 doses or times, Stop date: 09/18/16 17:53:00 PAGE DESIGNER [facility] Her arredondo Versed 2016-09-18 23:35:00 No 5 mg, Route: IVP, ONCE, Dosing Weight 81.818, kg, Priority: STAT, Start date: 09/18/16 17:35:00 PAGE DESIGNER, Stop date: 09/18/16 17:35:00 PAGE DESIGNER [facility] Sodium Chloride 0.154 MEQ/ML Injectable Solution 2016-09-18 20:3 7:00 No 1,000 mL, 1,000 ml/hr, Infus e Over: 1 hr, Route: IV, ONCE, Priority: STAT, Dosing Weight 81.818 kg, Start date: 09/18/16 14:37:00 PAGE DESIGNER, Duration: 1 doses or times, Stop date: 09/18/16 14:37:00 PAGE DESIGNER [facility] Sulfamethoxazole 800 MG / Trimethoprim 160 MG Oral Tablet [B actrim] 2016-04-29 09:28:00 Yes 1 tab, PO, BID, X 7 day, # 1 4 tab, 0 Refill(s) [facility] Alprazolam 0.5 MG Oral Tablet [Xanax] 2016-04-29 09:27:00 Y es 0.5 mg = 1 tab, PO, Q8H, PRN Anxiety, X 7 day, # 21 tab, 0 Refill(s) [facility] Sodium Chloride 0.154 MEQ/ML Injectable Solution 2016-04-29 06:0 1:00 No 1,000 mL, 2,000 ml/hr, Infus e Over: 30 minutes, Route: IV, 1,000, Drug form: INJ, ONCE, Priority: STAT, Dosing Weight 81.818 kg, Start date: 04/29/16 1:01:00 CDT, Duration: 1 doses or times, Stop date: 04/29/16 1:01:00 CDT [facility] Saline Flush 0.9% 2016-04-29 02:29:00 No Notes: (Same as: BD Posiflush) [facility] heparin 2012-03-23 21:00:00 No Jhon [...] Duration: 30 day, Stop date: 04/21/12 9:00:00 [facility] Plavix 2012-03-23 14:00:00 No Jhon [...] a day x 2 days, then stop [facility] carlos Pepcid 20 mg oral tablet 2012-03-23 13:36:53 Yes Aurea L Floyd 20 mg, 1 tab, PO, BID, 24 tab, Substitution Allowed [facility] Plavix 75 mg oral tablet 2012-03-23 12:00:00 Yes Aurea Reedkman 75 mg, 1 tab, PO, Daily, 30 tab, Substitution Allowed, TAB [facility] aspirin 325 mg tablet 2012-03-23 11:59:58 Yes Aurea Conway Floyd 325 mg, 1 tab, PO, Daily, 30 tab, Substitution Allowed, TAB [facility] Vicodin ES 7.5/750 oral tablet 2012-03-23 11:59:44 Yes Aurea Reedkman 1-2 tab, PO, Q4-6H, PRN, 30 tab, Pain, S ubstitution Allowed, Soft Stop, TAB [facility] dexamethasone 2012-03-23 11:00:00 No Jeromy L Day 4 mg, 1 mL, Route: IV, Drug form: INJ, Q6H, Start date: 03/23/12 6:00:00, Duration: 30 day, Stop date: 04/22/12 0:00:00 [facility] potassium phosphate + Sodium Chloride 0.9% IV 250 mL 03-23 08:30:00 No Jeromy L Day 18 mmol, 6 mL, R oute: IV, ONCE, Start date: 03/23/12 3:30:00, Stop date: 03/23/12 3:30:00 [facility] magnesium sulfate 2012-03-23 08:00:00 No Jeromy L Day 2 gm, 50 mL, Route: IVPB, Drug form: INJ, ONCE, Start date: 03/23/12 3:00:00, Stop date: 03/23/12 3:00:00 [facility] senna 8.6 mg oral tablet 2012-03-23 02:00:00 No Jhon Bhavik Nava 8.6 mg, 1 tab, Route: PO, Drug Form: TAB, Bedtime, Start date: 03/22/12 21:00:00, Duration: 30 day, Stop date: 04/20/12 21:00:00 [facility] hydrALAZINE 2012-03-22 20:18:00 No Jhon Bhavik Nava 20 mg, 1 mL, Route: IV, Drug form: INJ, Q2H, PRN Elevated BP, Start date: 03/22/12 15:18:00, Duration: 30 day, Stop date: 04/21/12 15:17:00 [facility] insulin regular human recombinant 100 units/mL injectable so lution 2012-03-22 19:59:00 No Jhon Bhavik Nava 7 unit, 0.07 mL, Route: SUB-Q, Drug form: SOLN, PRN, PRN Abnormal Lab Result, Start date: 03/22/12 14:59:00, Duration: 30 day, Stop date: 04/21/12 14:58:00 [facility] Dextrose 50% Syringe 2012-03-22 19:59:00 No Jhon Rossie l Nava 6.25 gm, 12.5 mL, Route: IVP, Drug Form: INJ, PRN, PRN Abnormal Lab Result, Start date: 03/22/12 14:59:00, Duration: 30 day, Stop date: 04/21/12 14:58:00 [facility] labetalol 2012-03-22 19:28:00 No Jhon Bhavik Nava 10 mg, 2 mL, Route: IVP, Drug form: INJ, Q1H, PRN Hypertension, Start date: 03/22/12 14:28:00, Duration: 30 day, Stop date: 04/21/12 13:28:00 [facility] senna 8.6 mg oral tablet 2012-03-22 19:11:00 No Jhon Bhavik Nava 1 tab, Route: PO, Drug Form: TAB, Bedtime, PRN Constipation, Start date: 03/22/12 14:11:00, Duration: 30 day, Stop date: 04/21/12 14:10:00 [facility] hydromorphone 2012-03-22 17:51:00 No Afshan Mata [place] 0.5 mg, 0.25 mL, Route: IVP, Drug form: INJ, Q5Min, PRN Pain Score 4-6, Start date: 03/22/12 12:51:00, Duration: 5 doses or times, Stop date: 03/23/12 0:00:00 [facility] ondansetron 2012-03-22 17:51:00 No Afshan R El 4 mg, 2 mL, Route: IVP, Drug form: INJ, ONCE, PRN Nausea & Vomiting, Start date: 03/22/12 12:51:00 [facility] flumazenil 2012-03-22 17:51:00 No Afshan Mata [place] 0.2 mg, 2 mL, Route: IVP, Drug form: INJ, PRN, PRN Benzodiazepine Reversal, Initial dose, Start date: 03/22/12 12:51:00, Duration: 30 day, Stop date: 04/21/12 12:50:00 [facility] naloxone 2012-03-22 17:51:00 No Afshan Mata [place] 0.04 mg, 0.1 mL, Route: IVP, Drug form: INJ, Q2MIN, PRN Narcotic Reversal, Start date: 03/22/12 12:51:00, Duration: 8 doses or times, Stop date: 03/23/12 0:00:00 [facility] Plavix 2012-03-22 17:39:00 No Domingo Barth 300 mg, 1 tab, Route: PO, Drug form: TAB, ONCE, Priority: NOW, Start date: 03/22/12 12:39:00, Duration: 1 doses or times, Stop date: 03/22/12 12:39:00 [facility] metoclopramide 2012-03-22 14:59:00 No Prasad Shaffer Gilmor e IV 10 mg, 2 mL, Route: IV, Drug form: INJ, ONCE, Priority: NOW, Start date: 03/22/12 9:59:00, Stop date: 03/22/12 9:59:00 [facility] abbieal Gage heparin 2012-03-22 14:00:00 No Jhon Vick 5,000 unit, 1 mL, Route: SUB-Q, Drug form: INJ, Q12H, Start date: 03/22/12 9:00:00, Duration: 30 day, Stop date: 04/20/12 21:00:00 Zbigniew Rizvi Saline Flush 0.9% 2012-03-22 14:00:00 No Miguel Leon bdunnur 5 ml, Route: IVP, Drug Form: INJ, Q12H, Start date: 03/22/12 9:00:00, Duration: 30 day, Stop date: 04/20/12 21:00:00 Zbigniew Rizvi docusate sodium 100 mg oral capsule 2012-03-22 14:00:00 No Miguel Cornejo Abdunnur 100 mg, 1 cap, R oute: PO, Drug form: CAP, Q12H, Start date: 03/22/12 9:00:00, Duration: 30 day, Stop date: 04/20/12 21:00:00 [facility] 2012-03-22 14:00:00 No Miguel Cornejo Abdunnur 20 mg, 1 tab, Route: PO, Drug form: TAB, Daily, Start date: 03/22/12 9:00:00, Duration: 30 day, Stop date: 04/20/12 9:00:00 Marcia Almonte Plavix 2012-03-22 14:00:00 No Jhon Bhavik Nava 75 mg, 1 tab, Route: PO, Drug form: TAB, Daily, Start date: 03/22/12 9:00:00, Duration: 30 day, Stop date: 04/20/12 9:00:00 [facility] jeovany Almonte aspirin 325 mg tablet 2012-03-22 14:00:00 No Jhon Flo el Nava 325 mg, 1 tab, Route: PO, Drug form: TAB, Daily, Start date: 03/22/12 9:00:00, Duration: 30 day, Stop date: 04/20/12 9:00:00 [facility] Saline Flush 0.9% 2012-03-22 13:28:00 No Miguel Leon bdunnur 5 ml, Route: IVP, Drug Form: INJ, PRN, PRN Line Flush, Start date: 03/22/12 8:28:00, Duration: 30 day, Stop date: 04/21/12 8:27:00 [facility] Sodium Chloride 0.9% IV 1,000 mL 2012-03-22 13:28:00 No Michelle Ramirez 1,000 mL, Rate: 50 m l/hr, Infuse over: 20 hr, Route: IV, Dosing Weight 90.909 kg, Total Volume: 1,000, Start date: 03/22/12 8:28:00, Duration: 30 day, Stop date: 04/21/12 8:27:00 [facility] ondansetron 2012-03-22 13:28:00 No Miguel Ariasu r 4 mg, 2 mL, Route: IVP, Drug form: INJ, Q8H, PRN Nausea & Vomiting, Start date: 03/22/12 8:28:00, Duration: 30 day, Stop date: 04/21/12 8:27:00 [facility] acetaminophen-hydrocodone 325 mg-5 mg oral tablet 13:28:00 No Miguel Ariasur 2 tab, Rou te: PO, Drug Form: TAB, Q4H, PRN Pain Score 4-6, Start date: 03/22/12 8:28:00, Duration: 30 day, Stop date: 04/21/12 8:27:00 [facility] morphine Sulfate 2012-03-22 13:28:00 No Miguel Pimentel dunnur 2 mg, 1 mL, Route: IVP, Drug form: INJ, Q1H, PRN Pain Score 7-10, Start date: 03/22/12 8:28:00, Duration: 30 day, Stop date: 04/21/12 8:27:00 [facility] Plavix 2012-03-22 13:11:00 No Domingo Barth 300 mg, Route: PO, Drug form: TAB, ONCE, Start date: 03/22/12 8:11:00, Duration: 1 doses or times, Stop date: 03/22/12 8:11:00 [facility] cefazolin 2012-03-22 11:22:00 No Miguel Dickson 2 gm, 100 mL, Route: IVPB, Drug form: INJ, PRE OP, Priority: STAT, Start date: 03/22/12 6:22:00, Duration: 1 day, Stop date: 03/23/12 6:21:00 [facility] Plavix 75 mg oral tablet 2012-03-14 11:47:00 No Aurea Conway Floyd 75 mg, 1 tab, PO, Daily, 30 tab, Substitution Allowed, TAB [facility] Aspirin Low Dose 81 mg oral tablet 2012-03-08 20:53:35 No 81 mg, 1 tab, PO, Daily, Substitution All[facility] 7.5/750 oral tablet 2012-03-08 20:51:46 No Aurea Conway Floyd 1-2 tab, PO, Q4-6H, PRN, 30 tab, Pain, Substitution Allowed, Sof t Stop [facility] lisinopril 2012-03-08 20:49:24 Yes Miguel Ariasur 20 mg, PO, Daily, Substitution Allowed [facility] aspirin 325 mg tablet 2011-03-22 11:48:00 No Aurea Suarezan 325 mg, 1 tab, PO, Daily, 30 tab, Substitution Allowed, TAB [facility] Ferrous Sulfate Ferrous Sulfate Yes 325 Daily [facility] Folic Acid Folic Acid Yes 1 Daily [facility] Furosemide Furosemide Yes 40 Daily [facility] Lactulose Lactulose Yes 15 Three Times A Day [facility] Levetiracetam Levetiracetam Yes 500 Twice A Day [facility] Midodrine Hcl Midodrine Hcl Yes 10 Three Times A Day [facility] Pantoprazole Sodium (Protonix) 40 Mg TABLET. Pantopr azole Sodium (Protonix) 40 Mg TABLET. Yes 40 Daily [facility] Rifaximin (Xifaxan) 550 Mg TABLET Rifaximin (Xifaxan) 550 Mg TABLET Yes 550 Daily [facility] Spironolactone Spironolactone Yes 25 Daily [facility] Thiamine Hcl (Vitamin B-1) 100 Mg TABLET Thiamine Hcl (Vitamin B-1) 100 Mg TABLET Yes 100 Daily [facility] Vital Signs Vital Name Observation Time Observation Value Comments Source Body Temperature 2020-03-08 07:39:00 98.0 [degF] [facility] Weight 2020-03-08 00:22:00 189 [lb_av] [facility] BMI (Body Mass Index) 2020-03-08 00:22:00 36.9 kg/m2 [facility] Respitory Rate 2020-02-26 22:00:00 Zbigniew Rizvi Systolic (mm Hg) 2020-02-26 22:00:00 Joel Almonte Diastolic (mm Hg) 2020-02-26 22:00:00 Meme Almonte Respitory Rate 2020-02-26 21:00:00 [facility]ori [facility] Systolic (mm Hg) 2020-02-26 21:00:00 Joel rial Gage Diastolic (mm Hg) 2020-02-26 21:00:00 [facility] Respitory Rate 2020-02-26 20:00:00 [facility] Systolic (mm Hg) 2020-02-26 20:00:00 [facility] [place] Diastolic (mm Hg) 2020-02-26 20:00:00 Mem [facility] Temperature Oral (F) 2020-02-26 09:00:00 98.1 F [facility] [place] Temperature Oral (F) 2020-02-26 01:00:00 97.8 F [facility] Temperature Oral (F) 2020-02-23 09:00:00 98.8 F [facility] [place] Heart Rate 2020-02-18 11:46:00 [facility] Heart Rate 2020-02-18 09:35:00 [facility] [place] Heart Rate 2020-02-18 07:30:00 [facility] [place] Height 2020-02-16 03:51:00 152.4 cm [facility] [place] BMI Calculated 2020-02-16 03:51:00 [facility] [place] Weight 2020-02-16 03:51:00 [facility] Systolic (mm Hg) 2016-10-19 17:38:00 Joel rial [place] Diastolic (mm Hg) 2016-10-19 17:38:00 [facility] [place] Respitory Rate 2016-10-19 17:38:00 [facility] Respitory Rate 2016-10-19 17:23:00 [facility] [place] Systolic (mm Hg) 2016-10-19 17:23:00 Joel [facility] [place] Diastolic (mm Hg) 2016-10-19 17:23:00 [facility] [place] Respitory Rate 2016-10-19 17:08:00 [facility] [place] Systolic (mm Hg) 2016-10-19 17:08:00 Joel rial [place] Diastolic (mm Hg) 2016-10-19 17:08:00 [facility] Heart Rate 2016-10-19 14:53:00 [facility] [place] Temperature Oral (F) 2016-10-18 20:38:00 98.0 F [facility] Heart Rate 2016-10-18 20:38:00 [facility] [place] BMI Calculated 2016-10-18 20:38:00 [facility] [place] Weight 2016-10-18 20:38:00 [facility] Height 2016-10-18 20:38:00 149.86 cm [facility] Systolic (mm Hg) 2016-09-21 17:17:00 Joel rial [place] Diastolic (mm Hg) 2016-09-21 17:17:00 [facility] Temperature Oral (F) 2016-09-21 17:17:00 97.9 F [facility] Respitory Rate 2016-09-21 17:17:00 [facility] [place] Heart Rate 2016-09-21 17:17:00 [facility] Systolic (mm Hg) 2016-09-21 14:42:00 Joel [facility] [place] Diastolic (mm Hg) 2016-09-21 14:42:00 [facility] Respitory Rate 2016-09-21 14:42:00 [facility] [place] Systolic (mm Hg) 2016-09-21 14:27:00 Joel rial [place] Diastolic (mm Hg) 2016-09-21 14:27:00 [facility] Respitory Rate 2016-09-21 14:27:00 [facility] Heart Rate 2016-09-21 13:52:00 [facility] [place] Heart Rate 2016-09-21 13:02:00 [facility] Temperature Oral (F) 2016-09-21 13:02:00 98.3 F [facility] Temperature Oral (F) 2016-09-21 10:04:00 98.1 F [facility] Weight 2016-09-18 20:32:00 [facility] [place] BMI Calculated 2016-09-18 20:32:00 [facility] [place] Height 2016-09-18 20:32:00 149.86 cm [facility] [place] Systolic (mm Hg) 2016-04-29 10:27:00 Joel rial [place] Diastolic (mm Hg) 2016-04-29 10:27:00 [facility] [place] Respitory Rate 2016-04-29 10:27:00 [facility] Temperature Oral (F) 2016-04-29 10:27:00 98.2 F [facility] [place] Systolic (mm Hg) 2016-04-29 09:20:00 Joel [facility] [place] Diastolic (mm Hg) 2016-04-29 09:20:00 [facility] [place] Temperature Oral (F) 2016-04-29 09:20:00 98.3 F [facility] Respitory Rate 2016-04-29 09:20:00 [facility] Temperature Oral (F) 2016-04-29 07:20:00 98.2 F [facility] [place] Respitory Rate 2016-04-29 07:20:00 [facility] [place] Systolic (mm Hg) 2016-04-29 07:20:00 Joel rial [place] Diastolic (mm Hg) 2016-04-29 07:20:00 [facility] Heart Rate 2016-04-29 02:28:00 [facility] Weight 2016-04-29 02:28:00 [facility] [place] BMI Calculated 2016-04-29 02:28:00 [facility] [place] Height 2016-04-29 02:28:00 149.86 cm [facility] [place] Respitory Rate 2012-03-23 17:00:00 [facility] [place] Diastolic (mm Hg) 2012-03-23 16:00:00 [facility] [place] Systolic (mm Hg) 2012-03-23 16:00:00 Joel rial [facility] Respitory Rate 2012-03-23 16:00:00 [facility] [place] Diastolic (mm Hg) 2012-03-23 15:00:00 [facility] Respitory Rate 2012-03-23 15:00:00 [facility] [place] Systolic (mm Hg) 2012-03-23 15:00:00 Joel rial [facility]age Systolic (mm Hg) 2012-03-23 14:00:00 Joel rial [place] Diastolic (mm Hg) 2012-03-23 14:00:00 [facility] [place] Temperature Oral (F) 2012-03-23 09:00:00 97.1 F [facility] Temperature Oral (F) 2012-03-23 05:00:00 97.1 F [facility] Temperature Oral (F) 2012-03-23 01:00:00 97.1 F [facility] Heart Rate 2012-03-22 11:45:00 [facility] Height 2012-03-22 11:45:00 149.86 cm [facility] [place] Weight 2012-03-22 11:45:00 [facility] [place] Height 2012-03-08 20:19:00 149.86 cm [facility] Weight 2012-03-08 20:19:00 [facility] Procedures Procedure Date / Time Performed Performing Clinician Madeleine e Computed tomography angiography of brain 2020-03-08 00:00:00 [facility] Computed tomography of abdomen and pelvis with contrast 00:00:[address] [facility] [address] angiography of neck 2020-03-08 00:00:00 [facility] Biopsy of liver [facility] section [facility] n Esophagogastroduodenoscopy [facility] [place] Removal of gallstones from liver [facility] Plan of Care Planned Activity Planned Date Details Comments Source Instructions Urinary Tract Infection - Women [facility] Encounters Start Date/Time End Date/Time Encounter Type Admission Type [facility] Care Department Encounter ID Source 2020-03-08 00:41:00 2020-03-08 08:30:00 Departed Emergency Room 1 SYLVIA JAQUEZ [facility] [id number] [facility] 2020-02-15 22:38:15 2020-02-26 19:00:00 Outpatient Garland Rock [facility] [id number] 2020-02-16 02:53:00 2020-02-15 22:38:00 Inpatient E [facility] 2017-11-22 08:30:00 2017-11-22 08:30:00 Outpatient [facility] MED [id number] 2017-11-17 12:35:00 2017-11-17 23:59:00 Outpatient Heber Tim [facility] [id number] 2016-10-19 07:49:00 2016-10-19 11:51:00 Outpatient Perico Duenas [facility] [id number] 2016-09-18 14:17:00 2016-09-21 12:48:00 Outpatient Heber Tim [facility] [id number] 2016-04-28 21:22:00 2016-04-29 05:30:00 Outpatient Veda Cid [facility] [id number] Results Test Description Test Time Test Comments Results Result Comments Source CHEST SINGLE (PORTABLE) 2020-03-15 10:42:00 [facility] [address] [address] Patient Name: DIANE SIMEON MR #: [id number] : 1955 Age/Sex: 64/F Req #: [id number] Adm Physician: Ordered by: CARLITOS HARPER MD Report #: [id number] Location: ER Room/Bed: Procedure: [id number] DX/CHEST SINGLE (PORTABLE) Exam Date: 03/15/20 Exam Time: 819 REPORT STATUS: Signed EXAMINATION: CHEST SINGLE (PORTABLE) INDICATION: Altered mental status. COMPARISON: Chest x-ray on 03/08/2020. FINDINGS: TUBES and LINES: None. LUNGS: Low lung volumes with bronchovascular crowding prominent interstitial lung markings. No focal consolidation. PLEURA: No pleural effusion or pneumothorax. HEART AND MEDIASTINUM: The heart is mildly enlarged. The mediastinal contours otherwise within normal limits BONES AND SOFT TISSUES: No acute osseous lesion. Soft tissues are unremarkable. UPPER ABDOMEN: No free air under the diaphragm. IMPRESSION: Cardiomegaly with mild interstitial pulmonary edema. Signed by: Kasey Villanueva MD on 03/15/2020 10:45 AM Dictated By: KASEY VILLANUEVA MD 1045 Transcribed By: AL on 03/15/20 1045 COPY TO: CARLITOS HARPER MD CT BRAIN WO 2020-03-15 10:20:00 [facility] [address] [address] Patient Name: DIANE SIMEON MR #: [id number] : 1955 Age/Sex: 64/F Req #: [id number] Adm Physician: Ordered by: CARLITOS HARPER MD Report #: [id number] Location: ER Room/Bed: Procedure: [id number] CT/CT BRAIN WO Exam Date: 03/15/20 Exam Time: 819 REPORT STATUS: Signed History:Altered mental status Comparison studies: None Technique: Axial images were obtained from the skull base to the vertex. Coronal and sagittal images reconstructed from the axial data. Dose modulation, iterative reconstruction, and/or weight based adjustment of the mA/kV was utilized to reduce the radiation dose to as low as reasonably achievable. Intravenous contrast: None Findings: Scalp/skull: No abnormalities. Extra-axial spaces: 6 mm thick, CSF-like, chronic bilateral frontoparietal subdural collections do not exert mass effect on the underlying brain (series 400, image 38). No masses. No additional fluid collections. Brain sulci: Appropriate for age Ventricles: Normal in size and configuration. No hydrocephalus. Parenchyma: Subtle hypodensities in the supratentorial white matter are nonspecific microvascular ischemic changes. Focal cortical and subcortical encephalomalacic changes in the right inferomedial parietal lobe (precuneus) is the result of an nonspecific vascular insult No masses, hemorrhage, acute or additional chronic cortical vascular insults. Sellar/suprasellar region: No abnormalities. Craniocervical junction: Patent foramen magnum. No Chiari one malformation. Incidental findings: * A stent is in place from the lacerum to the supraclinoid segment of the left ICA (series 401, image 31) * Subtle atherosclerotic calcifications in the right carotid siphon. * Nonspecific opacification of multiple right mastoid air cells. 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 Impression: 1. No acute intracranial abnormalities. 2. 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 3. Focal chronic nonspecific left parietal insult. 4. Incidental findings as described. Signed by: Dr. Bang Herman M.D. on 03/15/2020 10:30 AM Dictated By: BANG BURT MD, MD 103 Transcribed By: AL on 03/15/20 1030 COPY TO: CARLITOS HARPER MD Urine color determination 2020-03-08 05:05:00 Test Item Urine Color (test code = 5778-6) SELVIN YELLOW [facility] [id number] 05:05:00* Test Item Value Reference Range Interpretation Comments Urine Clarity (test code = 03001-5) [facility] Test strip 2020-03-08 05:05:00* Test Item Value Reference Range Interpretation Comments Urine Specific [place] (test code = 5811-5) 1.010 1.010-1.02 5 [facility] pH measurement by automated test [id number] 05:05:00* Test Item Value Reference Range Interpretation Comments Urine pH (test code = 08780-6) 6.5 5-7 [facility] leukocyte esterase detection by [id number] 05:05:00* Test Item Value Reference Range Interpretation Comments Urine Leukocyte Esterase (test code = 5799-2) NEGATIVE NEGATIVE [facility] nitrite [id number] 05:05:00* Test Item Value Reference Range Interpretation Comments Urine Nitrite (test code = 01087-0) POSITIVE NEGATIVE [facility] protein measurement by test strip (mass/volume)2020-03-08 05:05:00* Test Item Value Reference Range Interpretation Comments Urine Protein (test code = 5804-0) NEGATIVE NEGATIVE [facility] glucose [id number] 05:05:00* Test Item Value Reference Range Interpretation Comments Urine Glucose (UA) (test code = 2349-9) NEGATIVE NEGATIVE [facility] ketones detection by automated test [id number] 05:05:00* Test Item Value Reference Range Interpretation Comments Urine Ketones (test code = 60085-3) NEGATIVE NEGATIVE [facility] urobilinogen measurement by test strip (mass/volume)2020-03-08 05:05:00* Test Item Value Reference Range Interpretation Comments Urine Urobilinogen (test code = 12807-9) 0.2 0.2-1 [facility] total bilirubin measurement (mass/volume)2020-03-08 05:05:00* Test Item Value Reference Range Interpretation Comments Urine Bilirubin (test code = 1978-6) NEGATIVE NEGATIVE [facility] erythrocytes [id number] 05:05:00* Test Item Value Reference Range Interpretation Comments Urine Blood (test code = 91874-4) TRACE NEGATIVE [facility] CenterAutomated urine sediment leukocyte count by microscopy (number/high power field)2020-03-08 05:05:00* Test Item Value Reference Range Interpretation Comments Urine WBC (test code = 5821-4) 6-10 0-5 [facility] CenterErythrocytes detection in urine sediment by light [id number] 05:05:00* Test Item Value Reference Range Interpretation Comments Urine RBC (test code = 99753-4) 6-10 0-5 [facility] CenterBacteria detection in urine sediment by light [id number] 05:05:00* Test Item Value Reference Range Interpretation Comments Urine Bacteria (test code = 76999-3) MANY NONE [facility] CenterEpithelial cells detection in urine sediment by light [id number] 05:05:00* Test Item Value Reference Range Interpretation Comments Urine Epithelial Cells (test code = 32730-3) MODERATE NONE [facility] CenterCT [facility]BDOMEN/PELVIS [id number] 04:12:00 [facility] [address] [address] Patient Name: DIANE SIMEON MR #: [id number] : 4 Age/Sex: 64[id number] Req #: [id number] Adm Physician: Ordered by: SYLVIA JAQUEZ DO Report #: [id number] Location: ER Room/Bed: Procedure: CT/CT ABDOMEN/PELVIS W Exam Date: 03/08/20 Exam Time: 314 REPORT STATUS: Signed EXAM: CT Abdomen and Pelvis WITH contrast INDICATION: Abdominal pain. Jaundice. COM PARISON: None. TECHNIQUE: Abdomen and pelvis were scanned utilizing a multidet willima helical scanner from the lung base to [...] GUERRA MD, MD 6 COPY TO: ERICKSON JAQUEZ, DO CHEST SINGLE (PORTABLE)2020-03-08 04:08:[address] [address] Patient Name: DIANE SIMEON MR #: [id number] : 1955 Age/Sex: 64/F Req #: [id number] Adm Physician: Ordered by: SYLVIA JAQUEZ DO Report #: [id number] Location: ER Room/Bed: Procedure: DX/QUINTON ST SINGLE (PORTABLE) Exam Date: 03/08/20 Exam Time: 349 REPORT STATUS: Signed EXAMI NATION: CHEST SINGLE (PORTABLE) INDICATION: EDEMA TO BLE [id number] COMPARISON: None FINDINGS: TUBES and LINES: None. [...] 03/08/20411 COPY TO: SYLVIA JAQUEZ DO CTA [id number] 04:03:00 [address] [address] Patient Name: DIANE SIMEON MR #: [id number] : 1955 Age/Sex: 64/F Req #: [id number] Adm Physician: Ordered by: SYLVIA JAQUEZ DO Report #: [id number] Location: ER Room/Bed: Procedure: [id number] CT/CTA NECK Exam Date: 03/08/20 Exam Time: 314 REPORT STATUS: Signed EXAMINATION: CT douglas o [...] 03/08/20440 COPY TO: SYLVIA JAQUEZ DO CTA [id number] 04:03:00 [address] [address] Patient Name: DIANE SIMEON MR #: [id number] : 1955 Age/Sex: 64/F Req #: [id number] Adm Physician: Ordered by: SYLVIA JAQUEZ DO Report #: [id number] Location: ER Room/Bed: Procedure: [id number] CT/CTA BRAIN Exam Date: 03/08/20 Exam Time: 314 REPORT STATUS: Signed EXAMINATION: CT ang io of the neck and head with contrast. HISTORY:Altered mental status and slurred speech for 3 days. COMPARISON:None. TECHNIQUE: Multidetector hel ical axial images were acquired through the neck [...] 03/08/20440 COPY TO: SYLVIA JAQUEZ DO BNP [id number] 02:30:00* Test Item Value Reference Range Interpretation Comments B-Type Natriuretic Peptide (test code = 17990-0) 596.9 0-100 [facility] leukocytes automated count (number/volume)2020-03-08 00:30:00* Test Item Value Reference Range Interpretation Comments White Blood Count (test code = 6690-2) 4.21 4.8-10.8 [facility] erythrocytes automated count (number/volume)2020-03-08 00:30:00* Test Item Value Reference Range Interpretation Comments Red Blood Count (test code = 789-8) 2.65 3.6-5.1 [facility] CenterBlood hemoglobin measurement (moles/volume)2020-03-08 00:30:00* Test Item Value Reference Range Interpretation Comments Hemoglobin (test code = 98990-4) 8.2 12.0-16.0 [facility] CenterAutomated blood hematocrit (volume fraction)2020-03-08 00:30:00* Test Item Value Reference Range Interpretation Comments Hematocrit (test code = 4544-3) 25.9 34.2-44.1 [facility] CenterAutomated erythrocyte mean corpuscular [id number] 00:30:00* Test Item Value Reference Range Interpretation Comments Mean Corpuscular Volume (test code = 787-2) 97.7 81-99 [facility] CenterAutomated erythrocyte mean corpuscular hemoglobin (mass per erythrocyte)2020-03-08 00:30:00* Test Item Value Reference Range Interpretation Comments Mean Corpuscular Hemoglobin (test code = 785-6) 30.9 28-32 [facility] CenterAutomated erythrocyte mean corpuscular hemoglobin concentration measurement (mass/volume)2020-03-08 00:30:00* Test Item Value Reference Range Interpretation Comments Mean Corpuscular Hemoglobin Concent (test code = 786-4) 31.7 31-35 [facility] CenterRDW [id number] 00:30:00* Test Item Value Reference Range Interpretation Comments Red Cell Distribution Width (test code = 61542-6) 17.5 11.7 -14.4 [facility] CenterAutomated blood platelet count (count/volume)2020-03-08 00:30:00* Test Item Value Reference Range Interpretation Comments Platelet Count (test code = 777-3) 37 140-360 Results repeated and called to [facility] at 0050 on 03/08/20 by Andrés Ferrer. Read back and verified.[facility] CenterAutomated blood segmented neutrophil count as percentage of total [id number] 00:30:00 * Test Item Value Reference Range Interpretation Comments Neutrophils (%) (Auto) (test code = 43719-0) 46.8 38.7-80.0 [facility] CenterAutomated blood lymphocyte count as percentage ot total xgnjnjfcds9451-67-52 00:30:00* Test Item Value Reference Range Interpretation Comments Lymphocytes (%) (Auto) (test code = 736-9) 37.8 18.0-39.1 [facility] CenterAutomated [facility] monocyte count as percentage of total mxarhxqljx7961-28-31 00:30:00* Test Item Value Reference Range Interpretation Comments Monocytes (%) (Auto) (test code = 5905-5) 10.2 4.4-11.3 [facility] CenterAutomated blood eosinophil count as percentage of total klwnowqcog3696-77-07 00:30:00* Test Item Value Reference Range Interpretation Comments Eosinophils (%) (Auto) (test code = 713-8) 4.0 0.0-6.0 [facility] CenterAutomated blood basophil count as percentage of total navijdyqyg0800-31-43 00:30:00* Test Item Value Reference Range Interpretation Comments Basophils (%) (Auto) (test code = 706-2) 1.0 0.0-1.0 [facility] CenterFluoroscopic procedure less than one hour cjqasenf6152-75-00 00:30:00* Test Item Value Reference Range Interpretation Comments IM GRANULOCYTES % (test code = IM GRANULOCYTES %) 0.2 0.0- 1.0 [facility] CenterAutomated blood neutrophil count 2020-03-08 00:30:00* Test Item Value Reference Range Interpretation Comments Neutrophils # (Auto) (test code = 751-8) 2.0 2.1-6.9 [facility] CenterBlood lymphocytes count (number/volume) 2020-03-08 00:30:00* Test Item Value Reference Range Interpretation Comments Lymphocytes # (Auto) (test code = 34849-2) 1.6 1.0-3.2 [facility] CenterBlood monocytes automated count (number/volume)2020-03-08 00:30:00* Test Item Value Reference Range Interpretation Comments Monocytes # (Auto) (test code = 742-7) 0.4 0.2-0.8 [facility] CenterAutomated blood eosinophil count 2020-03-08 00:30:00* Test Item Value Reference Range Interpretation Comments Eosinophils # (Auto) (test code = 711-2) 0.2 0.0-0.4 [facility] CenterAutomated blood basophil count (count/volume)2020-03-08 00:30:00* Test Item Value Reference Range Interpretation Comments Basophils # (Auto) (test code = 704-7) 0.0 0.0-0.1 [facility] CenterFluoroscopic procedure less than one hour msvvmclv6122-96-50 00:30:00* Test Item Value Reference Range Interpretation Comments Absolute Immature Granulocyte (auto (sophia t code = Absolute Immature Granulocyte (auto) 0.01 0-0.1 [facility] sodium [facility] (moles/volume)2020-03-08 00:30:00* Test Item Value Reference Range Interpretation Comments Sodium Level (test code = 2951-2) 143 136-145 [facility] potassium measurement (moles/volume)2020-03-08 00:30:00* Test Item Value Reference Range Interpretation Comments Potassium Level (test code = 2823-3) 3.1 3.5-5.1 [facility] chloride measurement (moles/volume)2020-03-08 00:30:00* Test Item Value Reference Range Interpretation Comments Chloride Level (test code = 2075-0) 99 98-107 [facility] carbon dioxide, total measurement (moles/volume)2020-03-08 00:30:00* Test Item Value Reference Range Interpretation Comments Carbon Dioxide Level (test code = 2028-9) 34 22-29 [facility] anion ccr8189-64-83 00:30:00* Test Item Value Reference Range Interpretation Comments Anion Gap (test code = 67848-7) 13.1 8-16 [facility] urea nitrogen measurement (mass/volume)2020-03-08 00:30:00* Test Item Value Reference Range Interpretation Comments Blood Urea Nitrogen (test code = 3094-0) 7 7-26 [facility] creatinine measurement (mass/volume)2020-03-08 00:30:00* Test Item Value Reference Range Interpretation Comments Creatinine (test code = 2160-0) 1.27 0.57-1.11 [facility] urea nitrogen/creatinine mass yasfs7520-96-64 00:30:00* Test Item Value Reference Range Interpretation Comments BUN/Creatinine Ratio (test code = 3097-3) 6 6-25 [facility] CenterEstimated glomerular filtration rate (GFR) jqjqazrakagcj0822-75-73 00:30:00* Test Item Value Reference Range Interpretation Comments Estimat Glomerular Filtration Rate (test code = 332414719) 42 >60 Ranges were taken from the National Kidney Disease Education Program and the [facility] literature.Reference ranges:60 or greater: Kclpvi65-57 ( for 3 consecutive months): Chronic kidney disease 15 or less: Kidney failureMethodist [facility] CenterGlucose jngavqqgzxj0590-37-47 00:30:00* Test Item Value Reference Range Interpretation Comments Glucose Level (test code = CDE9879) 92 74-118 [facility] calcium measurement (mass/volume)2020-03-08 00:30:00* Test Item Value Reference Range Interpretation Comments Calcium Level (test code = 22747-0) 8.7 8.4-10.2 [facility] total bilirubin measurement (mass/volume)2020-03-08 00:30:00* Test Item Value Reference Range Interpretation Comments Total Bilirubin (test code = 1975-2) 4.8 0.2-1.2 [facility] CenterFluoroscopic procedure less than one hour koujlmri3710-87-77 00:30:00* Test Item Value Reference Range Interpretation Comments Aspartate Amino Transf (AST/SGOT) (test code = Aspartate Amino Transf (AST/SGOT)) 54 5-34 [facility] alanine aminotransferase measurement (enzymatic activity/volume)2020-03-08 00:30:00* Test Item Value Reference Range Interpretation Comments Alanine Aminotransferase (ALT/SGPT) (test code = 1742-6) 24 0-55 [facility] CenterAmmonia Xhu-pLly7949-76-26 00:30:00* Test Item Value Reference Range Interpretation Comments Ammonia (test code = 40783-2) 68 31-123 [facility] protein measurement (mass/volume)2020-03-08 00:30:00* Test Item Value Reference Range Interpretation Comments Total Protein (test code = 2885-2) 6.2 6.5-8.1 [facility] albumin measurement (mass/volume)2020-03-08 00:30:00* Test Item Value Reference Range Interpretation Comments Albumin (test code = 1751-7) 3.1 3.5-5.0 [facility] CenterPlasma globulin measurement (mass/volume) 2020-03-08 00:30:00* Test Item Value Reference Range Interpretation Comments Globulin (test code = 59535-4) 3.1 2.3-3.5 [facility] albumin/globulin mass vclmi2565-36-61 00:30:00* Test Item Value Reference Range Interpretation Comments Albumin/Globulin Ratio (test code = 1759-0) 1.0 0.8-2.0 [facility] plasma alkaline phosphatase measurement (enzymatic activity/volume)2020-03-08 00:30:00* Test Item Value Reference Range Interpretation Comments Alkaline Phosphatase (test code = 6768-6) 122 40-150 [facility] amylase measurement (enzymatic activity/volume)2020-03-08 00:30:00* Test Item Value Reference Range Interpretation Comments Amylase Level (test code = 1798-8) 33 25-125 [facility] lipase measurement (enzymatic activity/volume)2020-03-08 00:30:00* Test Item Value Reference Range Interpretation Comments Lipase (test code = 3040-3) 11 8-78 [facility] plasma ethanol measurement (mass/volume)2020-03-08 00:30:00* Test Item Value Reference Range Interpretation Comments Ethyl Alcohol Level (test code = 5643-2) < 10.0 0.0-10.0 [facility] CenterCHEM VOIFE8093-59-62 22:18:001.9[facility]annCHEM MQVWN0024-39-15 22:18:002.5[facility]annCHEM JGDSC1232-80-04 11:54:13852Ledzbace HermannCHEM EBRBM4443-83-09 11:54:0010[facility]annCHEM RHUDT0854-50-22 11:54:000.81[facility]annCHEM TABUU7982-95-11 11:54:67518 [facility]annCHE[facility] OPGMO6827-31-21 11:54:004.0[facility]annCHEM PANEL 2020-02-26 11:54:11879Osolmgqc HermannCHEM SHZGY7618-39-85 11:54:0021[facility]annCHEM UKJKK0096-61-18 11:54:008.0[facility]annCHEM TQOUE2094-82-69 11:54:005.1[facility]annCHEM YPZBI1382-41-41 11:54:002.4[facility]annCHEM ZKKLB3412-28-63 11:54:0022[facility]annCHEM SAHFG5765-07-59 11:54:0038 [facility]annCHE[facility] TZNAR6775-00-75 11:54:0097[facility]annCHEM PANEL 2020-02-26 11:54:002.9[facility]annCHEM PUMAH4539-58-35 11:54:009.0[facility]annCHEM ZGAWB3283-31-74 11:54:00* Test Item Value Reference Range Interpretation Comments B/C Ratio (test code = B/C Ratio) 12 1 625 [facility]annCHEM HWMBV1875-35-92 11:54:002.7[facility]annCHEM PANEL 2020-02-26 11:54:00* Test Item Value Reference Range Interpretation Comments A/G Ratio (test code = A/G Ratio) 0.9 1 0.7-1.6 [facility]annCHE[facility] WCNTG9087-18-96 11:54:0077[facility]annCHEM PANEL 2020-02-26 11:54:001.6[facility]annCHEM HGANV8028-52-79 11:54:002.4[facility]annCHEM ZYNYF2071-89-85 20:21:001.5[facility]annCHEM OTFHN4743-31-20 20:21:001.6[facility]annCHEM YBWJS8637-62-32 20:21:02112Hrkfdiql HermannCHEM LOTQV1197-80-61 20:21:0012[facility]annCHEM FGDFN7024-68-75 20:21:000.84 [facility]annCHE[facility] FBLHM3497-04-78 20:21:19227Lrhdrhvf HermannCHEM PANEL 2020-02-25 20:21:004.3[facility]annCHEM XYCDO7829-93-88 20:21:32018Auzpaujs HermannCHEM NICCR0320-21-35 20:21:0024[facility]annCHEM NUPSS8798-69-10 20:21:008.3[facility]annCHEM KFVNZ5803-17-49 20:21:008.0[facility]annCHEM FRDTS2563-17-05 20:21:0073[facility]annCHEM BRINQ7984-98-27 08:54:0076 [facility]annCHEM SAMDN0439-88-38 08:54:0094[facility]annCHEM PANEL 2020-02-25 08:54:0013[facility]annCHEM QBGAK4367-96-65 08:54:000.81[facility]annCHEM TNPRS0938-96-50 08:54:05733Mjijlayx HermannCHEM KEGCG6017-05-38 08:54:004.1[facility]annCHEM HQSJP5305-46-96 08:54:81203Zzyvzoul HermannCHEM AMGYT0463-78-67 08:54:0022[facility]annCHEM IMSMG1214-60-33 08:54:008.0 [facility]annCHE[facility] RADDE5141-43-82 08:54:007.1[facility]annCHEM PANEL 2020-02-25 08:54:0056.0[facility] UyfmionCBKDIUGMGB0523-18-54 08:54:0060.4[facility] UazbdioOKXYECSUMQ7442-65-05 08:54:0020.8[facility] CklhyavTYWHTSOGYN9083-09-91 08:54:0011.9[facility] LtggapsDSUDAUUFUY7480-60-44 08:54:005.7[facility] WVZKCZXPBF7654-94-29 08:54:001.2[facility] AhsxnqnXBDHWCVIFO4921-09-11 08:54:002.7 [facility] ChepxzsZNFEQUDLPU9311-01-14 08:54:000.9[facility] HermannHEMATOLOGY 2020-02-25 08:54:000.5[facility] OkidrzeXDFMOKBWXA8908-99-13 08:54:000.3[facility] JsnxcdoRNXZJQLYCR8785-99-06 08:54:000.1[facility] RdwndqqVYAJFWGVPY1306-82-08 08:54:004.4[facility] MybxietONJIEBWEVI4706-23-40 08:54:002.50[facility] AOQSLLKZSR4682-26-45 08:54:008.1[facility] DlrpwsoFUFYHXCILA9440-24-42 08:54:00 24.3[facility] UllsgqeJJIAYSZALP1742-70-48 08:54:0097.1[facility] HermannHEMATOLOGY 2020-02-25 08:54:00* Test Item Value Reference Range Interpretation Comments MCH (test code = MCH) 32.6 pg 27.0-31.0 [facility] AljmjvfUURMCTDQHJ7839-50-43 08:54:0033.6[facility] HermannHEMATOLOGY 2020-02-25 08:54:0015.7[facility] NwrmnpbHKNWHMBNEV7620-98-44 08:54:0061[facility] WfovdlwLVYEWTFVPQ7063-88-11 08:54:009.8[facility] SxtxgolCYYBUZLDWG3873-56-08 10:01:0061.9[facility] DlemoqyWLPJPXIKCN9272-15-51 10:01:0018.3[facility] HUBIBKKCAG7486-39-05 10:01:0013.4[facility] NyllzhuHVBHGVDYRO6768-74-19 10:01:00 5.7[facility] PxmynwmSMWDYGWLEN3052-28-49 10:01:000.7[facility] HermannHEMATOLOGY 2020-02-24 10:01:002.5[facility] QgaymbkGTAZOFPCKY3013-69-26 10:01:000.7[facility] MjlbdkxJPTULYMIDF7383-19-19 10:01:000.5[facility] PqeeksiEOFSTCEDDX1201-08-97 10:01:000.2[facility] RfzhztvPFFZIHLTFK0422-21-57 10:01:004.0[facility] UKFRVROOCG1550-52-25 10:01:002.36[facility] BideqxjGTJPBTUZOU4341-63-86 10:01:00 7.7[facility] DijbwrgBBHUYUAEWT7826-09-37 10:01:0023.0[facility]annHEMATOLOGY 2020-02-24 10:01:0097.5[facility] HerudhnWGDCINOEEB4144-97-77 10:01:00* Test Item Value Reference Range Interpretation Comments MCH (test code = MCH) 32.8 pg 27.0-31.0 [facility] MeqlgyxPMFTZQPWBN2334-11-73 10:01:0033.6[facility]annHEMATOLOGY 2020-02-24 10:01:0015.3[facility] CejprbsDVRKPUDBFU7687-58-07 10:01:0062[facility] WyutdevFVRUYYQGPK8234-43-52 10:01:009.5[facility] IflwvhbMYIBFREBTM8832-35-90 09:37:004.1[facility] XghopcaLQTWRYWJKS5726-22-94 09:37:002.35[facility] ISLIGZPYJU3693-95-30 09:37:007.8[facility] JgzapufHJSRVYIOOU0923-47-41 09:37:00 22.9[facility] UgtnfsvZQNTLRUFNE0482-41-12 09:37:0097.5[facility] HermannHEMATOLOGY 2020-02-23 09:37:00* Test Item Value Reference Range Interpretation Comments MCH (test code = MCH) 33.3 pg 27.0-31.0 [facility] FozxyolJVDMRVSZBG5277-64-68 09:37:0034.1[facility] HermannHEMATOLOGY 2020-02-23 09:37:0015.4[facility] RrcbfobZAKFYOULZF5392-66-34 09:37:0059[facility] NihtwzySVQKTGNGTM1072-79-27 09:37:009.3[facility] FbfeqagUEZPWQNCHA1910-20-24 09:37:0060.9[facility] PseqncrIVZHRSDJBD7535-30-65 09:37:0018.5[facility] CLJPDRVORU0268-09-58 09:37:0013.7[facility] BialmcgEYCUZSYJUL6243-89-25 09:37:00 6.4[facility] NvtunruWOSZMPPSIA4935-85-70 09:37:000.5[facility] HermannHEMATOLOGY 2020-02-23 09:37:002.5[facility] LvnyscaVOCMVDPTHZ0124-38-51 09:37:000.8[facility] GpbonseHXCYQPJMSG3038-03-77 09:37:000.6[facility] ZniufclJWIBAVMEBU6917-16-88 09:37:000.3[facility] HermannCHEM CDAQD8035-22-03 14:09:0057.0[facility] HermannCHEM GNWHB5365-28-26 09:20:0062.0[facility]annCHEM ZPNWO3904-56-30 09:20:005.6 [facility]annCHE[facility] ZAFBA6893-91-66 09:20:002.8[facility] HermannCHEM PANEL 2020-02-21 09:20:0023[facility] HermannCHEM WQKZX5274-22-82 09:20:0031[facility]annCHEM KGLGB6114-89-71 09:20:15867Mdgfnuyj HermannCHEM JZCHA5036-73-49 09:20:001.9[facility] HermannCHEM OFAVD7024-82-55 09:20:00* Test Item Value Reference Range Interpretation Comments B/C Ratio (test code = B/C Ratio) 27 1 6-25 [facility]annCHE[facility] HYJEO4460-90-27 09:20:002.8[facility]annCHEM PANEL 2020-02-21 09:20:00* Test Item Value Reference Range Interpretation Comments A/G Ratio (test code = A/G Ratio) 1.0 1 0.7-1.6 [facility] SndwpokWUBMCRCZCP2132-10-75 11:17:00Normal (02/20/20 6:17 AM)[facility] TugjjjrOPALGRKRSB2027-36-93 11:17:00Normal (02/20/20 6:17 AM)[facility] LitehouseannHydroboltOOD BANK ICIOWXY1531-85-47 11:49:00Product available 5(02/19/20 6:49 AM)[facility] HermannBLOOD BANK AEOANUX1617-32-62 11:49:00Product available 4(02/19/20 6:49 AM) [facility] HermannCHEM QGFWV0209-75-84 10:44:006.0[facility]annCHEM PANEL 2020-02-19 10:44:003.2[facility] HermannCHEM BPBAJ2161-67-63 10:44:0025[facility] HermannCHEM FOUBM6488-15-78 10:44:0044[facility]annCHEM DXPHA2899-83-79 10:44:0092[facility]annCHEM MWSRL5015-85-46 10:44:002.0[facility] HermannCHEM XROCV1024-40-10 10:44:000.8[facility]annCHEM NSNGT7766-56-97 10:44:002.8 [facility]annCHEM JAEAB5961-99-93 10:44:00* Test Item Value Reference Range Interpretation Comments A/G Ratio (test code = A/G Ratio) 1.1 1 0.7-1.6 [facility]annCHE[facility] QHXEA1480-21-25 10:44:001.2[facility] HermannCHEM PANEL 2020-02-19 10:44:000.58[facility] EfkcpflAVQCQVSSUH0987-17-87 10:44:00* Test Item Value Reference Range Interpretation Comments PT (test code = PT) 25.2 s 12.0-14.7 [facility] TqpblubDGUINDTBWL9873-27-70 10:44:00* Test Item Value Reference Range Interpretation Comments INR (test code = INR) 2.24 1 0.85-1.17 [facility] TgjgxnmCJOQJHZUYI2249-57-75 10:44:00* Test Item Value Reference Range Interpretation Comments PTT (test code = PTT) 46.4 s 22.9-35.8 [facility] HermannPARATHYROID HLNLIQA8084-01-19 10:44:001.12[facility] PARATHYROID FJXJHUC7521-79-29 10:44:001.11[facility] HermannCHEM RZFLK8507-84-58 14:49:000.9[facility] HermannCHEM KHZZT5157-21-42 14:49:001.5[facility] ESBDXQXGYH7040-46-50 14:49:00* Test Item Value Reference Range Interpretation Comments PT (test code = PT) 25.1 s 12.0-14.7 [facility] GitgwfqENGSXXWMNB7306-09-80 14:49:00* Test Item Value Reference Range Interpretation Comments INR (test code = INR) 2.23 1 0.85-1.17 [facility]annCHE[facility] ZBBBX7184-19-27 11:24:001.0[facility] HermannCHEM PANEL 2020-02-18 11:24:001.4[facility] KrqwzjwAVCBXQXAAV0911-98-35 11:24:000.1[facility] HermannCHEM ZTUSY4204-62-19 02:19:000.46[facility] CmnakayQWAGXFBFXIJKC0754-83-83 02:19:0025.1[facility] TivynbbZMMEBLMIBJ2696-52-42 09:39:000.1[facility] HermannCHEM PIMJO7408-96-43 03:03:00* Test Item Value Reference Range Interpretation Comments B/C Ratio (test code = B/C Ratio) 19 1 6-25 [facility]annURINE SSJU0894-03-54 19:51:0010[facility]annURINE CHEM 2020-02-16 19:51:76173.00[facility]annURINE WICZ8738-89-34 19:51:0022.0 [facility] CZPR8461-33-41 19:51:00* Test Item Value Reference Range Interpretation Comments U Prot/Creat (test code = U Prot/Creat) 0.08 1 [facility] JbtqypsIUZEZPYPTV7513-99-27 10:26:00Not Detected (02/16/20 5:26 AM) [facility] AND GCKLH4009-67-98 10:24:00Yellow *NA*(02/16/20 5:24 AM) [facility] OHXJS0517-48-52 10:24:00Marked *ABN*(02/16/20 5:24 AM) [facility] ESBVA3303-86-76 10:24:00* Test Item Value Reference Range Interpretation Comments UA Spec Grav (test code = UA Spec Grav) 1.014 1 [facility] AND AVWLE4039-07-38 10:24:00* Test Item Value Reference Range Interpretation Comments UA pH (test code = UA pH) 5.0 1 5.0-8.0 [facility] AND ABCLR2298-68-96 10:24:00Negative *NA*(02/16/20 5:24 AM) [facility] OPAXE9891-40-97 10:24:00Negative (02/16/20 5:24 AM) [facility] AND DEOHL5677-01-14 10:24:00Negative (02/16/20 5:24 AM) [facility] UWJOB2183-57-66 10:24:00Negative (02/16/20 5:24 AM) [facility] PAHSQ8386-97-25 10:24:001[facility] AND DGFHO4593-12-06 10:24:00<1[facility]annUR[facility] YMEN4768-99-69 10:24:0018 [facility] IPLE4173-37-83 10:24:0027.7[facility]annURINE CHEM 2020-02-16 10:24:0020[facility] ZwerkhaLXLOSYLBGU8319-96-37 08:16:00See Note 7(02/16/20 3:16 AM)[facility] AND HSHWZ9277-38-53 08:16:00Positive *ABN*(02/16/20 3:16 AM)[facility] HermannBLOOD BANK COGWKNQ8552-76-77 05:00:00 Negative (02/16/20 12:00 AM)[facility] HermannCARDIAC GVTXWJG5378-24-86 05:00:0059 [facility]annCARDIAC JGVTRZP2980-00-72 05:00:00<0.02[facility] HermannCARDIAC ZCXHRDV7673-03-15 05:00:617[address] ZrympzoRLKJGVLNAU4085-28-75 05:00:00* Test Item Value Reference Range Interpretation Comments PT (test code = PT) 20.5 s 12.0-14.7 [facility] MojefqfFLJCHGOQOU9734-53-99 05:00:00* Test Item Value Reference Range Interpretation Comments INR (test code = INR) 1.73 1 0.85-1.17 [facility] OuxxwrjBMLYOAQJLM2434-37-35 05:00:00* Test Item Value Reference Range Interpretation Comments PTT (test code = PTT) 34.5 s 22.9-35.8 [facility] W/DRHF2625-49-90 14:36:00 Name: DIANE MCKNIGHT [facility] : 1955 Age/S: 64 / F [address] [facility] Unit #: [id number] Loc: [place] [address] Phys: Perico Duenas MD Acct: [id number] Dis Date: Status: REG CLI PHONE #: [phone] Exam Date: 10/05/2019 1400 FAX #: [phone] Reason: MAYO LIVER CIRRHOSIS EXAMS: CPT CODE: [id number] CT ABD PELVIS W/CONT 93259 REASON FOR EXAM: MAYO LIVER CIRRHOSIS EXAM ORDER DATE: 10/05/2019 12:51 PM Endy mitchell M.D.: Perico Duenas MD PROCEDURE: - CT ABD PELVIS W/CONT con trast contrast-enhanced axial CT images were acquired through the abdomen/ pelvis at 5 mm intervals. Sagittal and coronal reformatted images were ge nerated. Automated exposure control was utilized for this [...] Signed Re port (CONTINUED) Name: DIANE MCKNIGHT [facility] : 1955 Age/S: 64 / F [address] Unit #: [id number] Loc: [place] [address] Phys: Perico Duenas MD Acct: [id number] Dis Date: Status: REG CLI PHONE #: [phone] Exam Date: 10/05/2019 1400 FAX #: [phone] Reason: MAYO LIVER CIRRHOSIS EXAMS: CP T CODE: [id number] CT ABD PELVIS W/CONT 73200 <Continued> narrowing of the central canal. There is also marked facet hypertrophy at L2-L3 which causes severe left-sided foraminal narrowing and moderate central canal narrowing. IMPRESSION: Cirrhotic liver with portal venous hypertension as evidenced by splenorenal shunt and recanalized umbilical vein. Colonic diverticulosis without diverticulitis. Location: [facility] at 1436 Reported and signed by: Amando Greenberg MD CC: Perico Duenas MD; Pascual Omer MD Technologist:Fang Tavares RT(R),CT CTDI: DLP: Trnscb Date/Time: 10/05/2019 (1436) [email or web address] Orig Print D/T: S: 10/05/2019 (1439) PAGE 2 Signed Report CREATININE W ESTIMATED CTC5860-39-30 12:33:00* Test Item Value Reference Range Interpretation Comments BEDSIDE CREATININE (test code = CREATBED) mg/dL 0.7-1.3 L GLOMERULAR FILTRATION RATE POC (test code = GFRBED) 104 >6 0 H CREATININE W ESTIMATED UBV2569-10-43 12:33:00* Test Item Value Reference Range Interpretation Comments BEDSIDE CREATININE (test code = CREATBED) 0.58 mg/dL 0.7-1.3 L GLOMERULAR FILTRATION RATE POC (test code = GFRBED) > 60 >6 0 H Previously reported result: 104 Edited by: INFCE on 10/05/19:012784/ 1233: GFRBED previously reported as: 104 H ZJXHHHG3412-90-52 02:50:00* Test Item Value Reference Range Interpretation Comments AMMONIA (test code = AMM) 20 umol/L 0-35 - DUP VEIN NKG0713-64-49 02:41:00 Name: DIANE SIMEON [facility] : 1955 Age/S: 64 / F [address] [place] [address] Blvd Unit #: [id number] Loc: [place] [address] Phys: Stanley Acosta MD Acct: [id number] Dis Date: Status: REG ER PHONE #: [phone] Exam Date: 08/15/2019 0158 FAX #: [phone] Reason: PAIN AND SWELLING EXAMS: CPT CODE: [id number] DUP VEIN TYLER 83167 EXAM: DUP VEIN TYLER: 08/16/2018, 0101 hours [...] 1 Signed Report (CONTINUED) Name: DIANE SIMEON [facility] [place] : 1955 Age/S: 64 / F [address] [place] [address] Blvd Unit #: [id number] Loc: [place] [address] Phys: Stanley Acosta MD Acct: [id number] Di s Date: Status: REG ER PHONE #: Exam Date: 08/15/2019157 FAX #: Reason: PAIN AND SWELLING EXAMS: CPT CODE: [id number] DUP VEIN TYLER 81663 <Continued> SL: JSYEDHaleigh at 0241 Reported and signed by: Jonathan Molina M.D. CC: Stanley Acosta MD Technologist: Alla Blas RDMS(Carolyn) Trnscb Date/Time: 08/16/2019 (240) [email or web address] Orig Print D/T: S: 08/16/2019 (024) Probe: PAGE 2 Signed Report CBC W/AUTO NUSY8700-75-51 00:47:00* Test Item Value Reference Range Interpretation [...] REQUIRED (test code = MDIFF) NO PLT WYBNWATUQS0058-01-78 00:47:00* Test Item Value Reference Range Interpretation Comments PLATELET ESTIMATE (test code = PLTEST) 84-105 THOUSAND ADEQUATE PLATELET MORPHOLOGY (test code = PLTMORPH) LARGE PLATELETS URINALYSIS [id number] 00:38:00* Test Item Value Reference Range Interpretation [...] 2+ /LPF NONE SEEN A COMPREHENSIVE METABOLIC [id number] 00:35:00* Test Item Value Reference Range Interpretation [...] code = ALKP) 177 IUnit/L 20-125 H [id number] 00:35:00* Test Item Value Reference Range Interpretation Comments PHOSPHOROUS (test code = PHOS) 2.5 MG/DL 2.5-4.9 N [id number] 00:35:00* Test Item Value Reference Range Interpretation Comments MAGNESIUM (test code = MAG) 1.70 mg/dL 1.8-2.4 L [id number] 00:35:00* Test Item Value Reference Range Interpretation Comments TROPONIN-I (test code = TROPI) < 0.015 ng/mL 0.000-0.045 N Negative: <= 0.045 Positive: >= 0.046 Correlation with serial results, other cardiac markers andclinical findings is necessary to determine the clinicalsignificance of this result. Results using different methodologies should not be comparedto one another as quantitative results may vary by method. PROTHROMBIN [id number] 00:27:00* Test Item Value Reference Range Interpretation [...] Infarction (to prevent recurrent infarct). THROMBOPLASTIN TIME [id number] 00:27:00* Test Item Value Reference Range Interpretation Comments THROMBOPLASTIN TIME PARTIAL (test code = PTT) 43.6 Seconds 25.0-39. 5 H Therapeutic Range: 50.4 - 88.3 Seconds Effective 11/27/2018 CBC W/AUTO [id number] 00:19:00* Test Item Value Reference Range Interpretation [...] REQUIRED (test code = MDIFF) NO PLT [id number] 00:19:00* Test Item Value Reference Range Interpretation Comments PLATELET ESTIMATE (test code = PLTEST) THOUSAND ADEQUATE CBC W/AUTO [id number] 00:16:00* Test Item Value Reference Range Interpretation [...] REQUIRED (test code = MDIFF) NO PLT [id number] 00:16:00* Test Item Value Reference Range Interpretation Comments PLATELET ESTIMATE (test code = PLTEST) THOUSAND ADEQUATE CBC W/AUTO [id number] 00:15:00* Test Item Value Reference Range Interpretation [...] NO - XR FOOT 3 + V [id number] 23:36:00 FAX: Stanley Prater MD [phone] [place]: St: REG Name: DIANE CHEN [facility] [place] : [birth year] Age/S: 64/F [address] [place] [address] Unit #: [id number] Loc: [place] [address] Phys: Stanley Acosta MD Acct: [id number] Dis Date: Status: REG ER PHONE #: [phone] Exam Date: 08/15/20192317 FAX #: [phone] Reason: PAIN AND SWELLING EXAMS: CPT CODE: [id number] XR FOOT 3 + [place] [address] PROCEDURE: Right foot serie s radiographs, 3 [...] Gary Dickinson M.D. CC: Stanley Acosta MD [facility] gist: RT Loni(R) Trnscrd Date/Time/B y: 08/15/2019 (5764) : By: [email or web address] Orig Print D/T: S: 08/15/2019 (84 14) PAGE 1 Signed Report BASIC METABOLIC [id number] 07:52:00* Test Item Value Reference Range Interpretation [...] CA) 7.5 mg/dL 8.0-10.5 L CBC W/AUTO [id number] 07:37:00* Test Item Value Reference Range Interpretation [...] DIFF REQUIRED (test code = MDIFF) NO [id number] 05:19:00* Test Item Value Reference Range Interpretation Comments AMMONIA (test code = AMM) 57 umol/L 0-35 H BASIC METABOLIC [id number] 07:43:00* Test Item Value Reference Range Interpretation [...] code = CA) 7.9 mg/dL 8.0-10.5 L [id number] 07:43:00* Test Item Value Reference Range Interpretation Comments MAGNESIUM (test code = MAG) 1.60 mg/dL 1.8-2.4 L CBC W/AUTO [id number] 07:16:00* Test Item Value Reference Range Interpretation [...] code = MDIFF) NO ALPHA FETOPROTEIN TUMOR [id number] 04:07:00* Test Item Value Reference Range Interpretation Comments ALPHA FETOPROTEIN TUMOR MARKER (test code = AFPTM) 4.7 ng/mL 0.0 -8.3 [facility] Electrochemiluminescence Immunoassay(ECLIA)Values obtained with different assay methods or kits cannotbe used interchangeably. Results cannot be interpreted asabsolute evidence of the presence or absence of malignantdisease.This test is not interpretable in females.Performed At: [facility] [id number] Edmund Conway MD Ph:[phone] NOTIFIED TC [facility] METABOLIC [id number] 06:04:00* Test Item Value Reference Range Interpretation [...] code = CA) 7.5 mg/dL 8.0-10.5 L [id number] 06:04:00* Test Item Value Reference Range Interpretation Comments PHOSPHOROUS (test code = PHOS) 2.0 MG/DL 2.5-4.9 L [id number] 06:04:00* Test Item Value Reference Range Interpretation Comments MAGNESIUM (test code = MAG) 1.60 mg/dL 1.8-2.4 L BASIC METABOLIC [id number] 05:58:00* Test Item Value Reference Range Interpretation [...] code = CA) 7.5 mg/dL 8.0-10.5 L WCEGEEGWFWC2617-30-70 05:58:00* Test Item Value Reference Range Interpretation Comments PHOSPHOROUS (test code = PHOS) MG/DL 2.5-4.9 BGOVHICTT5720-31-67 05:58:00* Test Item Value Reference Range Interpretation Comments MAGNESIUM (test code = MAG) 1.60 mg/dL 1.8-2.4 L CBC W/AUTO [id number] 05:49:00* Test Item Value Reference Range Interpretation [...] DIFF REQUIRED (test code = MDIFF) NO [id number] 04:34:00* Test Item Value Reference Range Interpretation Comments AMMONIA (test code = AMM) 54 umol/L 0-35 H [id number] 05:17:00* Test Item Value Reference Range Interpretation Comments AMMONIA (test code = AMM) 41 umol/L 0-35 H BASIC METABOLIC [id number] 05:16:00* Test Item Value Reference Range Interpretation [...] code = CA) 8.0 mg/dL 8.0-10.5 N MEWZPEJMTGJ2305-09-23 05:16:00* Test Item Value Reference Range Interpretation Comments PHOSPHOROUS (test code = PHOS) 2.3 MG/DL 2.5-4.9 L [id number] 05:16:00* Test Item Value Reference Range Interpretation Comments MAGNESIUM (test code = MAG) 1.90 mg/dL 1.8-2.4 BASIC METABOLIC [id number] 05:15:00* Test Item Value Reference Range Interpretation [...] code = CA) 8.0 mg/dL 8.0-10.5 N [id number] 05:15:00* Test Item Value Reference Range Interpretation Comments PHOSPHOROUS (test code = PHOS) MG/DL 2.5-4.9 [id number] 05:15:00* Test Item Value Reference Range Interpretation Comments MAGNESIUM (test code = MAG) 1.90 mg/dL 1.8-2.4 CBC W/AUTO [id number] 05:05:00* Test Item Value Reference Range Interpretation [...] = MDIFF) NO - XR CHEST 1 [id number] 04:46:00 FAX: Yoana Humphries MD [phone] [place]: St: [facility] FAX: Lurdes Carrasco [phone] Name: SERGEITONDIANE [facility] : 1955 Age/S: 64/F [address] [place] [address] Unit #: [id number] Loc: [address] [place] [address] Phys: Lurdes Harrison MD Acct: [id number] Dis Date: Status: ADM IN PHONE #: [phone] Exam Date: 07/21/2019 033 FAX #: [phone] Reason: confirm NGT placement EXAMS: CPT CODE: [id number] XR CHEST 1 V 68328 EXAM: CR, XR chest one view: 07/21/2019, [...] Humphries MD; Lurdes Harrison MD Technologist: RT Nick(Esperanza) Trnscrd Date/Time/By: 07/21/2019 (0446) : By: [email or web address] Orig Print D/T: S: 07/21/2019 (0450) PAGE 1 Signed Report - ABDOMEN LTD 2019-07-20 18:24:00 Name: DIANE SIMEON [facility] : 1955 Age/S: 64 / F [address] [place] [address] Unit #: [id number] Loc: [place] [address] Phys: Lucio Ortega Acct: [id number] Dis Date: Status: ADM IN PHONE #: [phone] Exam Date: 07/20/2019 180 FAX #: [phone] Reason: liver cirrhosis;elevated lfts EXAMS: CPT CODE: [id number] ABDOMEN [facility] [address] Procedure: Right Upper Quadrant Ultrasound. Clinical Indication: [...] 1 Signed Report (CONTINUED) Name: DIANE SIMEON [facility] : 1955 Age/S: 64 / F [address] [place] [address] Unit #: [id number] Loc: [place] [address] Phys: Lucio Ortega Acct: [id number] D is Date: Status: ADM IN PHONE #: [phone] Exam Date: 07/20/2019 1806 FAX #: Reason: liver cirrhosis;elevated lfts EXAMS: CPT CODE: [id number] [place] [address] <Continued> SL: OCO- H at 1824 Reported and signed by: Mekhi Cates M.D. CC: Lucio Ortega; Yoana Humphries MD Technologist: Afshan Cisneros RDMS(AB)(OB) Trnscb Date/Time: 07/20/2019 (1823) [email or web address] Orig Print D/T: S: 07/20/2019 (1826) Probe: PAGE 2 Signed Report ARTERIAL BLOOD [id number] 15:03:00* Test Item Value Reference Range Interpretation [...] = PEEPA) 5 cmH2O Performed by certified drill setup operator at [facility] ABG TEMPERATURE (test code = TEMPA) 98.0 F ABG SITE (test code = SITEA) R Rad PREDICTED AA GRADIENT (test code = AP) 62 PREDICTED PO2 (test code = OP) 179 a/A RATIO (test code = RATIO) 0.76 TCO2 ARTERIAL (test code = TCO2A) 22 A-A GRADIENT (test code = AAGRADE) 58 - XR CHEST 1 [id number] 07:39:00 FAX: Ana Sosa [phone] [place]: St: ADM FAX: Yoana Humphries MD [phone] Name: DIANE SIMEON [facility] : 1955 Age/S: 64/F [address] [place] [address] Unit #: [id number] Loc: G.M[address] [place] [address] Phys: Ana Sosa MD Acct: [id number] Dis Date: Status: ADM IN PHONE #: [phone] Exam Date: 07/20/2019 06 FAX #: [phone] Reason: sob EXAMS: CPT CODE: [id number] XR CHEST 1 V 29226 Patient: DIANE SERGEITON. : 1955; Age: 64 years; Gender: Female. MR: [id number]. Ordering physician: Ana Sosa MD. PORTABLE CHEST [...] No infiltrate, pleural effusion or pneumothorax. SL: [id number] at 0739 Reported and signed by: Mitchell Baker M.D. CC: Ana Sosa MD; Yoana Humphries MD Technologist: RT Vero(Esperanza) Trnscrd Date/Time/By: 07/20/2019 (0739) : By: [email or web address] Orig Print D/T: S: 07/20/2019 (0795) PAGE 1 Signed Report COMPREHENSIVE METABOLIC [id number] 05:34:00* Test Item Value Reference Range Interpretation [...] code = ALKP) 126 IUnit/L 20-125 H CEMQVIHDNJJ2302-23-37 05:34:00* Test Item Value Reference Range Interpretation Comments PHOSPHOROUS (test code = PHOS) 1.9 MG/DL 2.5-4.9 L [id number] 05:34:00* Test Item Value Reference Range Interpretation Comments MAGNESIUM (test code = MAG) 1.60 mg/dL 1.8-2.4 L [id number] 05:18:00* Test Item Value Reference Range Interpretation Comments AMMONIA (test code = AMM) 70 umol/L 0-35 H CBC W/AUTO [id number] 05:12:00* Test Item Value Reference Range Interpretation [...] REQUIRED (test code = MDIFF) NO PROTHROMBIN [id number] 05:10:00* Test Item Value Reference Range Interpretation [...] Infarction (to prevent recurrent infarct). ARTERIAL BLOOD [id number] 17:10:00* Test Item Value Reference Range Interpretation [...] = PEEPA) 5 cmH2O Performed by certified drill setup operator at [facility] ABG TEMPERATURE (test code = TEMPA) 98.0 F ABG SITE (test code = SITEA) R Rad PREDICTED AA GRADIENT (test code = AP) 103 PREDICTED PO2 (test code = OP) 293 a/A RATIO (test code = RATIO) 0.63 TCO2 ARTERIAL (test code = TCO2A) 22 A-A GRADIENT (test code = AAGRADE) 147 - XR CHEST 1 [id number] 16:23:00 FAX: Yoana Humphries MD [phone] [place]: St: ADM FAX: Shane Guevara MD [phone] Name: DIANE SIMEON [facility] [place] : 1955 Age/S: 64/F [address] [place] [address] Unit #: [id number] Loc: [place] [address] Phys: Shane Guevara MD Acct: [id number] Dis Date: Status: ADM IN PHONE #: [phone] Exam Date: 07/19/2019 162 FAX #: [phone] Reason: Respiratory Failure EXAMS: CPT CODE: [id number] XR CHEST 1 V 70516 1 VIEW CXR. PORTABLE EXAM 4:06 PM [...] inspiration. END OF IMPRESSION SL: WR1-H at 3213 Reported and signed by: Bj Kim M.D. CC: Yoana Humphries MD; Shane Guevara MD Technologist: Wen Lehman, RT(R); Radha Lucas RT(R) Trnscrd Date/Time/By: 07/19/2019 (6355) : By: Brenda Orig Print D/T: S: 07/19/2019 (3260) PAGE 1 Signed Report CBC W/AUTO [id number] 13:58:00* Test Item Value Reference Range Interpretation [...] REQUIRED (test code = MDIFF) NO PLT [id number] 13:58:00* Test Item Value Reference Range Interpretation Comments PLATELET ESTIMATE (test code = PLTEST) 60-75 THOUSAND ADEQUATE PLATELET MORPHOLOGY (test code = PLTMORPH) NORMAL DRUGS OF ABUSE SCREEN [id number] 13:49:00* Test Item Value Reference Range Interpretation [...] non-medical purposes. UA RFLX MICR CULT IF [id number] 13:33:00* Test Item Value Reference Range Interpretation [...] no other srcSpecimen Description: CLEAN CATCHCOMPREHENSIVE METABOLIC [id number] 13:33:00* Test Item Value Reference Range Interpretation [...] code = ALKP) 156 IUnit/L 20-125 H [id number] 13:33:00* Test Item Value Reference Range Interpretation Comments LIPASE (test code = LIP) 231 IUnit/L 73-393 N TSH REFLEX TO [id number] 13:33:00* Test Item Value Reference Range Interpretation Comments TSH REFLEX TO FT4 (test code = TSHREFLEX) 2.30 IU/mL 0.42-5.47 N YQINUMVXBHFVM0548-74-03 13:33:00* Test Item Value Reference Range Interpretation Comments ACETAMINOPHEN (test code = ACET) < 2 ug/mL 10-30 L CHOIJJVHUI8505-11-14 13:33:00* Test Item Value Reference Range Interpretation Comments SALICYLATE (test code = MINH) < 1.8 mg/dL 2.8-20.0 L [id number] 13:33:00* Test Item Value Reference Range Interpretation Comments ALCOHOL (test code = ALC) < 0.003 G/dL <0.003 Et hyl Alcohol Interpretation: 0.100 gm/dL - Legally Intoxicated 0.300-0.400 gm/dL - Severely Intoxicated >0.400 gm/dL - Potentially LethalResults are for Medical purposes only, and not for Legal orEmployment evaluation purposes. CBC W/AUTO [id number] 13:26:00* Test Item Value Reference Range Interpretation [...] REQUIRED (test code = MDIFF) NO PLT [id number] 13:26:00* Test Item Value Reference Range Interpretation Comments PLATELET ESTIMATE (test code = PLTEST) THOUSAND ADEQUATE CBC W/AUTO [id number] 13:26:00* Test Item Value Reference Range Interpretation [...] REQUIRED (test code = MDIFF) NO PLT QIOTUJHGGW0732-88-30 13:26:00* Test Item Value Reference Range Interpretation Comments PLATELET ESTIMATE (test code = PLTEST) THOUSAND ADEQUATE - CT HEAD/BRAIN W/O [id number] 13:22:00 Name: DIANE SIMEON [facility] : 1955 Age/S: 64 / F [address] [place] [address] Blvd Unit #: [id number] Loc: [place] [address] Phys: Shane Guevara MD Acct: [id number] Dis Date: Status: REG ER PHONE #: [phone] Exam Date: 07/19/2019 1305 FAX #: [phone] Reason: Altered Mental Status EXAMS: CPT CODE: [id number] CT HEAD/BRAIN W/O CONT 34932 PROCEDURE: CT HEAD WITHOUT CONTRAST INDICATION: Altered [...] PAGE 1 Signed Report (CONTINUED) Name: DIANE SIMOEN [facility] : 1955 Age/S: 64 / F [address] [place] [address] Blvd Unit #: [id number] Loc: [place] [address] Phys: Marleni Guevara und Acct: [id number] Dis Date: Status: REG ER PHONE #: Exam Date: 07/19/2019 1305 FAX #: Reason: Altered Mental Status EXAMS: CPT CODE: [id number] CT HEAD/BRAIN W/O CONT 69610 <Continued> infarct. 3. Intracranial atherosclerosis. If there is continued clinical concern, further imaging options include MRI. SL: [id number] at 1322 Reported and signed by: Juan Jose Pelaez M.D. CC: Shane Guevara MD Technologist:Albina Rodriguez, RT(R)(CT) CTDI: DLP: Trnscb Date/Time: 07/19/2019 (1322) tDENYKWL Orig Print D/T: S: 07/19/2019 (1325) PAGE 2 Signed Report COMPREHENSIVE METABOLIC [id number] 13:13:00* Test Item Value Reference Range Interpretation [...] TOTAL (test code = ALKP) IUnit/L 20-125 [id number] 13:13:00* Test Item Value Reference Range Interpretation Comments LIPASE (test code = LIP) 231 IUnit/L 73-393 N TSH REFLEX TO [id number] 13:13:00* Test Item Value Reference Range Interpretation Comments TSH REFLEX TO FT4 (test code = TSHREFLEX) IU/mL 0.42-5.47 RZTIXTDNJFMGE7089-93-30 13:13:00* Test Item Value Reference Range Interpretation Comments ACETAMINOPHEN (test code = ACET) ug/mL 10-30 [id number] 13:13:00* Test Item Value Reference Range Interpretation Comments SALICYLATE (test code = MINH) mg/dL 2.8-20.0 GDUZQVB5195-66-76 13:13:00* Test Item Value Reference Range Interpretation Comments ALCOHOL (test code = ALC) G/dL <0.003 - XR CHEST 1 [id number] 13:13:00 FAX: Shane Guevara MD [phone] [place]: [address]: REG Name: DIANE CHEN [facility] : [birth year] Age/S: 64/F [address] [place] [address] Unit #: [id number] Loc: [place] [address] Phys: Shane Guevara MD Acct: [id number] Dis Date: Status: REG ER PHONE #: [phone] Exam Date: 07/19/2019 1310 FAX #: [phone] Reason: Altered Mental Status EXAMS: CPT CODE: [id number] XR CHEST 1 V 67435 CHEST 1 VIEW: 07/19/2019 COMPARISON: NONE CLINICAL HISTORY: Altered Mental Status FINDINGS: Cardiomediastinal silhouette is borderline in size. No infiltrates or pulmonary edema is present. There is no pne umothorax. IMPRESSION: No acute pulmonary dis ease. at 13 13 Reported and signed by: Lupillo Mena M.D. CC: Shane Guevara MD Techno logist: Taina Melgoza RT(R); RT Vinod(R) Trnscrd Date/Time /By: 07/19/2019 (1313) : By: [email or web address] Orig Print D/T: S: 07/19/2019 ( 7078) PAGE 1 Signed Report PROTHROMBIN [id number] 13:11:00* Test Item Value Reference Range Interpretation [...] Infarction (to prevent recurrent infarct). THROMBOPLASTIN TIME [id number] 13:11:00* Test Item Value Reference Range Interpretation Comments THROMBOPLASTIN TIME PARTIAL (test code = PTT) 34.2 Seconds 25.0-39. 5 N Therapeutic Range: 50.4 - 88.3 Seconds Effective 11/27/2018 [id number] 13:11:00* Test Item Value Reference Range Interpretation Comments AMMONIA (test code = AMM) 225 umol/L 0-35 H TROPONIN-I [id number] 12:51:00* Test Item Value Reference Range Interpretation Comments TROPONIN-I RAPID (test code = TROPIRAP) 0.02 ng/mL 0.00-0.08 N Performed by certified drill setup operator at [facility] Negative: <= 0.08 Positive: >= 0.09An elevated troponin value alone is not sufficient todiagnose a myocardial infarction. Rather, the patient sclinical presentation (history, physical exam) and ECGshould be used in conjunction with troponin in thediagnostic evaluation of suspected myocardial infarction. Aserial sampling protocol is recommended to facilitate the identification of temporal changes in troponin levels characteristic of NM. CHEMISTRY 8 [id number] 12:45:00* Test Item Value Reference Range Interpretation [...] code = GFRBED) 89 ML/MIN CHEMISTRY 8 [id number] 12:45:00* Test Item Value Reference Range Interpretation Comments ISTAT-SODIUM (test code = NAP) 139 MMOL/L 134-147 N ISTAT-POTASSIUM (test code = KP) 4.8 MMOL/L 3.4-5.0 N ISTAT-CHLORIDE (test code = CLP) 110 MMOL/L 100-108 H Performed by certified drill setup operator at [facility] ISTAT CARBON DIOXIDE (test code = ISTAT-CO2) 20.0 mmol/L 21-33 L ISTAT CALCIUM IONIZED (test code = ISTAT-CHEYANNE) 1.11 MG/DL 1.12-1.3 2 L ISTAT-GLUCOSE (test code = GLUP) 115 MG/DL 70-110 H ISTAT-BUN (test code = BUNP) 23 MG/DL 7-18 H BEDSIDE CREATININE (test code = CREATBED) 0.7 MG/DL 0.6-1.3 N GLOMERULAR FILTRATION RATE POC (test code = GFRBED) 89 ML/MIN CHEM [id number] 20:52:0030[facility] LVPSW6703-41-67 20:52:000.6 [facility]ann[facility] DUPPJ0509-12-14 20:52:001.7[facility]annCHEM PANEL 2016-10-18 20:52:38994Fclaxcco HermannCHEM CBXVY6806-86-00 20:52:0028[facility]annCHE[facility] RRXJQ0512-59-92 20:52:002.2[facility]ann[facility] HXAVR5921-92-79 20:52:005.8[facility]annCHE[facility] ZKFHU0289-65-08 20:52:001.1[facility]annCHEM CWGOH8900-79-94 20:52:000.6[facility]annCHEM YMBZU7307-84-60 20:52:003.6 [facility] BqzokswOORVPBHPKYUR0610-74-88 20:52:0012.0[facility] HermannELECTROLYTES 2016-10-18 20:52:0094[facility] ApnveojFNHOGKUNAQZO3792-67-29 20:52:007.6[facility] ZtqstwyLOEGTCCFIDDS8484-52-62 20:52:82881Cmajwizz ApcuilfCGPLNRMPKZFF8933-42-78 20:52:0024[facility] XbziwhlOSMXBWUWBSST4508-26-76 20:52:004.0[facility] UICNUKSNZCWB8259-66-55 20:52:79062Rpxkbbix MzeicpuVBRRCEXGKCWS1706-09-95 20:52:54162Gglrvboc ZsyafprIFMIFLIEFOSX5101-76-10 20:52:008[facility] EMQCTHVRGCDF6597-59-01 20:52:000.68[facility] RsqukzdMPHTBLYLYG6611-87-60 20:52:00 50[facility] XhetylgUHUGZQMBFF1003-34-17 20:52:00* Test Item Value Reference Range Interpretation Comments PTT (test code = PTT) 36.7 s 22.9-35.8 [facility] TbchffnQSSHMSYOUR6260-61-65 20:52:001.51[facility]annHEMATOLOGY 2016-10-18 20:52:00* Test Item Value Reference Range Interpretation Comments PT (test code = PT) 18.5 s 12.0-14.7 [facility] UidmbwsDNCHXCRIPN5052-88-60 20:52:003.3[facility]annCHEM PANEL 2016-09-21 10:16:04264Ybxenpdn HermannCHEM OIBSK4878-12-22 10:16:0066.0[facility]annCHE[facility] MXJVE8094-48-12 10:16:001.2[facility]annCHE[facility] UCNSB2530-17-89 10:16:009[facility]annCHEM QNAOY8288-90-65 10:16:003.6[facility]annCHE[facility] WBHII5785-57-02 10:16:009.5[facility]annCHEM JKVZR7868-30-60 10:16:000.6 [facility]annCHE[facility] USDWH8223-97-88 10:16:0041[facility]annCHEM PANEL 2016-09-21 10:16:001.5[facility]annCHEM HQJWL7328-14-15 10:16:53663Cqnwvpck HermannCHEM OCJZQ2804-02-85 10:16:08455Qajwudhx [facility]annCHE[facility] UQBVI2136-63-18 10:16:002.1[facility]annCHE[facility] VIESJ3349-44-97 10:16:0023[facility]annCHEM DGQFT6523-21-96 10:16:005[facility]annCHE[facility] EWBEM1149-51-07 10:16:0075[facility]annCHEM WIAZP9695-50-99 10:16:003.5[facility]annCHEM UMLHS8211-18-87 10:16:58405Fvkzydey HermannCHEM TUCPJ9707-73-01 10:16:000.53[facility]annCHEM QPTEE9740-69-85 10:16:0023[facility]annCHEM UNKQQ4898-17-23 10:16:005.7 [facility]annCHE[facility] FDHHL7961-45-16 10:16:46533Lnfshxpd HermannCHEM PANEL 2016-09-21 10:16:007.3[facility] MrtjlyaERBWYSUALS6445-01-70 10:16:000.3[facility] KayjcgwQBINEERSEI5587-11-65 10:16:000.2[facility] TnhtdjnKZCJKZYVOV4705-48-61 10:16:004.1[facility] TduafrbATKTLBZSUA7297-86-61 10:16:001.1[facility] SVHBXEZJXU5235-77-14 10:16:000.7[facility] DxftckrXPTXERKBDH8776-48-23 10:16:002.4 [facility] BzjfbitTURRTMICCW0274-36-79 10:16:0059.0[facility] HermannHEMATOLOGY 2016-09-21 10:16:0027.6[facility] VcvsuufSMMVGWWCXZ5592-09-03 10:16:008.6[facility] IxjmczcHZQYEWGZSE0412-98-25 10:16:0010.0[facility] GxsugezOZLWMOYWWG7400-04-89 10:16:0034.4[facility] XjcbadgDHTFYICWDO4303-98-01 10:16:00* Test Item Value Reference Range Interpretation Comments MCH (test code = MCH) 31.1 pg 27.0-31.0 [facility] LevymarVFXUANAGQR1036-71-89 10:16:0015.6[facility] HermannHEMATOLOGY 2016-09-21 10:16:0048[facility] SanwqacHPWZHQXRGD0798-01-91 10:16:0090.4[facility] MzngicsYLYEYONTFQ9192-01-14 10:16:004.0[facility] HijtyeuTTPHJTKUJJ4778-38-95 10:16:0028.7[facility] JxsxtkcKNVPGGWFDU9342-39-87 10:16:003.18[facility] YTPYMMINUD0760-20-41 10:16:009.9[facility] DzvwfwxHXCBJZJCRV7352-17-85 10:16:00 1:160 *ABN*(09/21/16 4:16 AM)[facility] WvgkbgfRSBGPVKDQV8143-26-78 10:16:00Negative *NA*(09/21/16 4:16 AM)[facility] FzansovYSYHEQEBSH8702-50-07 10:16:00Negative *NA*(09/21/16 4:16 AM)[facility] PxuowduWPDGAPQMRY7661-00-64 10:16:00Negative *NA*(09/21/16 4:16 AM)[facility] YubhyhjROOIGDJJLO2383-71-01 10:16:00Negative *NA*(09/21/16 4:16 AM)[facility] OywjzpfJFZOGRVYPF8924-92-15 10:16:00Positive *ABN*(09/21/16 4:16 AM)[facility] RkgvotvGHEIXU2804-21-61 10:16:003.00[facility] FjpadkgXLDAHW2608-21-31 10:16:009[facility] SqlydzvOWDZLI8001-28-76 10:16:0063 [facility] OjddaljDZURRD0525-77-75 10:16:0036[facility] EbtmajpIYNJPM9681-46-34 10:16:97567Tdqqmtli VxlkjciLPOLHQ8728-10-62 10:16:0044[facility] HermannANEMIA QTCXA9811-55-72 12:29:0019.6[facility] HermannANEMIA XYCHW3285-35-23 12:29:75988 [facility]annANEMIA MKIJT5032-35-98 12:29:0034[facility] HermannANEMIA STUDY 2016-09-20 12:29:06015Qckfliec HermannANEMIA EBZOE3572-43-92 12:29:73938Nnnekulr HermannANEMIA VKVOL8317-26-25 12:29:0053[facility] HermannANEMIA YMSNL4123-95-08 12:29:0015[facility] HermannCHEM FKGDG1270-88-91 12:29:0015[facility] HermannCHEM HTVLU5624-70-81 12:29:0010.8[facility] HermannCHEM YDBQR4676-41-99 12:29:000.6 [facility]annCHEM FPIBA5997-83-29 12:29:003.3[facility] HermannCHEM PANEL 2016-09-20 12:29:31672Klopbbuj HermannCHEM RMXJD1898-43-62 12:29:56201Amnpnpct HermannCHEM AIAEO8704-25-87 12:29:003.8[facility] HermannCHEM OTHYN7299-98-38 12:29:48747Qjvwkllw HermannCHEM VBVKJ9070-76-55 12:29:000.46[facility] HermannCHEM JFEKZ6316-37-66 12:29:007[facility] HermannCHEM SSQPP6729-87-87 12:29:0075[facility]annCHEM BOIKE1554-62-04 12:29:001.8[facility] HermannCHEM GMOTB0125-40-17 12:29:36072Qskvphrt HermannCHEM ISYHK9520-38-97 12:29:0037[facility] HermannCHEM TYFQQ2599-41-92 12:29:0020[facility]annCHEM FADRM1594-70-01 12:29:001.9 [facility]annCHEM KGYHL5120-35-86 12:29:005.2[facility] HermannCHEM PANEL 2016-09-20 12:29:007.1[facility] HermannCHEM AMLUU8149-71-78 12:29:0022[facility] DrnsbvvOIIBKNNBZO3580-62-28 12:29:000.6[facility] UydhpjvZCYZNPYSUR4557-67-50 12:29:002.0[facility] WmwffavFFULLBODSC2496-41-35 12:29:001.1[facility] GLLBLNFLZT1921-25-55 12:29:000.3[facility] EjqwfuhJGKSWKEJDM9435-87-24 12:29:000.1 [facility] RmftbgzKVGBAMTVOZ5482-79-88 12:29:0055.3[facility] HermannHEMATOLOGY 2016-09-20 12:29:0030.8[facility] BhdsmfySDHJAJOYGL8055-65-10 12:29:009.4[facility] LorykkjLFPGLJAGFL4163-72-25 12:29:003.9[facility] PjghgvhMTQMEDSETE7703-71-61 12:29:00* Test Item Value Reference Range Interpretation Comments PT (test code = PT) 21.6 s 12.0-14.7 [facility] ZgwiqsjKCLGDOZYLX2797-45-69 12:29:001.84[facility] HermannHEMATOLOGY 2016-09-20 12:29:0015.4[facility] XrcvigyWAUYDGHOCI1497-13-85 12:29:0010.6[facility] ZhofmlhNGTNTCJGWI4300-61-80 12:29:0046[facility] FeteqidTXFNBVFXCZ2399-97-33 12:29:009.3[facility] AvjdlhiGANTIZCMWP7983-79-62 12:29:002.98[facility] [place] GXNKDDRRRX6439-26-68 12:29:003.6[facility] GrvwisiQDZFLIIRVB8562-59-43 12:29:00* Test Item Value Reference Range Interpretation Comments MCH (test code = MCH) 31.1 pg 27.0-31.0 [facility] DrvgrbjTBUYCDJBWU1689-48-04 12:29:0034.5[facility] HermannHEMATOLOGY 2016-09-20 12:29:0026.9[facility] JckaicqUCXLUXSXJB4555-11-29 12:29:0090.1[facility] OlnouvqMSKMCMOCCI4180-71-03 12:29:002.0[facility] SbckjycDRDPOUUZUO4843-82-47 12:29:00Negative *NA*(09/20/16 6:29 AM)[facility] AuxuvxpAOEJFKOOHK1261-39-62 12:29:00Negative *NA*(09/20/16 6:29 AM)[facility] IkwhyhnXTXYHXYWGK8593-13-77 12:29:00Negative *NA*(09/20/16 6:29 AM)[facility] IgvohfpPGCVIMAJPJ4193-50-91 12:29:00Negative *NA*(09/20/16 6:29 AM)[facility] BnftjspOTOCGVUAKM4904-84-42 12:29:00Negative *NA*(09/20/16 6:29 AM)[facility] KqjzwyeAZCWUTUZNG5984-16-03 12:29:00Negative *NA*(09/20/16 6:29 AM)[facility] YbghptcLSVYHTVJXP8246-76-70 12:29:00Negative *NA*(09/20/16 6:29 AM)[facility] QbduuqlLGGTOKXWQT7827-04-13 12:29:00Negative *NA*(09/20/16 6:29 AM)[facility] QuzvldpNDGWOPMTFO4593-51-89 12:29:00Positive *NA*(09/20/16 6:29 AM)[facility] OeoswhoGVPLLHLRYD0655-35-68 12:29:00Negative *NA*(09/20/16 6:29 AM)[facility] OtixqlxRTHKQSHBEU3291-55-71 12:29:00<3.1[facility] HermannCHEM ABQFU0992-32-10 11:43:002.1[facility]annCHEM SNRMM6350-64-79 11:43:48261Cobgcegw HermannCHEM WFZMC2176-45-50 11:43:000.49 [facility]annCHE[facility] SBJTW3460-79-56 11:43:003.6[facility]annCHEM PANEL 2016-09-19 11:43:47261Ziahfxyz HermannCHEM EWVKA9255-84-10 11:43:0021[facility]annCHEM BSCGS5807-20-84 11:43:44754Xklrpxsm HermannCHEM KIDUT7459-65-11 11:43:0021[facility]annCHEM RMLLP8908-75-34 11:43:007.4[facility]annCHEM ZGKVM1396-92-58 11:43:0010[facility]annCHEM GXCUS7936-92-64 11:43:002.2 [facility]annCHEM NCAMQ6144-60-88 11:43:005.9[facility] HermannCHEM PANEL 2016-09-19 11:43:0073[facility]annCHEM EKRIZ8887-51-08 11:43:78395Vqyetoub HermannCHEM TBOLF2831-67-71 11:43:0034[facility]annCHEM SAIXV8485-48-69 11:43:001.5[facility]annCHEM JUJPN0715-62-25 11:43:000.6[facility] HermannCHEM NOUGZ3963-54-27 11:43:003.7[facility]annCHEM ZCHEH3295-80-42 11:43:0020 [facility]annCHEM LNKKH6686-01-72 11:43:0012.6[facility] HermannHEMATOLOGY 2016-09-19 11:43:001.2[facility] IgtbjktLGUOXUUWKJ1681-54-03 11:43:000.4[facility] MkumyokOCZOILZWUB9454-09-78 11:43:008.2[facility] MlnxygsGKLPMIOVIU1941-39-86 11:43:0027.5[facility] QxgtakfJEMPKKKLES9032-21-87 11:43:000.1[facility] HDVYOWNTCX5717-44-60 11:43:002.7[facility] DxtlougDWBILRMBIF2929-79-10 11:43:000.6 [facility] OjrsuiiFKYMELLRMH4893-82-65 11:43:002.3[facility] HermannHEMATOLOGY 2016-09-19 11:43:0061.4[facility] JbfjirtUMQDLKCGTJ7979-10-09 11:43:0034.4[facility] ZkhrtgoBMPXVJLNLC5192-71-35 11:43:0060[facility] TqluevmTEQGIVEKPS0679-60-93 11:43:0015.3[facility] XgpldydRWNFJLIDPI2754-94-44 11:43:00* Test Item Value Reference Range Interpretation Comments MCH (test code = MCH) 31.1 pg 27.0-31.0 [facility] LoktdynCDKLUGZUQJ0114-36-24 11:43:0090.4[facility] HermannHEMATOLOGY 2016-09-19 11:43:0010.6[facility] MvlvxufNQHKKZYSSH6249-74-92 11:43:0029.6[facility] MnertxkROWBFLDGJE9170-43-86 11:43:0010.2[facility] YncbimxTLCXSMFSAE0094-37-87 11:43:003.28[facility] RtudxymSYMTZSSDKV5322-79-09 11:43:004.4[facility]annCHEM PEWPO3280-84-91 23:53:001.9[facility]annCHEM QMETU7521-29-24 20:48:28843 [facility]annVIRAL - SILTCXCZ6976-40-35 20:48:00Negative (09/18/16 2:48 PM) [facility]annVIRAL - ZAUORMYJ8045-70-65 20:48:00Negative (09/18/16 2:48 PM) [facility]annCARDIAC MAMKIDU8233-41-67 20:45:00<0.02[facility]annCARDIAC XBUIAON4166-83-51 20:45:001.4[facility] HermannCARDIAC YQCKDVJ5657-99-21 20:45:00 73[facility] HermannCARDIAC HLRCZKX0850-63-38 20:45:001.9[facility] HermannCHEM JRIGD7029-41-97 20:45:002.6[facility] HermannDRUG XMFYEO7973-10-47 20:45:00See Note *NA*(09/18/16 2:45 PM)[facility] HermannDRUG UCGTGR0958-70-32 20:45:00Negative *NA*(09/18/16 2:45 PM)[facility]annDRUG COWMXR6314-70-95 20:45:00Negative *NA*(09/18/16 2:45 PM)[facility]annDRUG ZNENKL6464-55-95 20:45:00Negative *NA*(09/18/16 2:45 PM)[facility] HermannDRUG BVSCKY3768-33-21 20:45:00Negative *NA*(09/18/16 2:45 PM)[facility] HermannDRUG TTORTW0987-57-48 20:45:00Negative *NA*(09/18/16 2:45 PM)[facility]annDRUG ZQGJCN5029-92-52 20:45:00Negative *NA*(09/18/16 2:45 PM)[facility]annDRUG TGCNMY1720-15-39 20:45:00Negative *NA*(09/18/16 2:45 PM)[facility] DspnzokMFUYJFNNVE1266-58-99 20:45:00<0.003[facility] KpmnqooFPPDRRXISB7723-30-61 20:45:00<3[facility]annURINE AND TDIGE9891-40-77 20:45:00Negative (09/18/16 2:45 PM)[facility] HCMUE1872-86-91 20:45:001[facility]UR[facility] AND GFQZO1580-74-84 20:45:00Negative (09/18/16 2:45 PM)[facility] RPDID2680-49-80 20:45:001[facility] AND UHKVV1366-43-42 20:45:004.0[facility] AND ROFPP6158-76-43 20:45:006.0 [facility] AND NWOUP3123-92-19 20:45:00Clear (09/18/16 2:45 PM)[facility] AND CELIY4842-55-86 20:45:001.027[facility] AND STOOL 2016-09-18 20:45:00Negative (09/18/16 2:45 PM)[facility] STOOL 2016-09-18 20:45:00Negative *NA*(09/18/16 2:45 PM)[facility] HermannCARDIAC ENZYMES 2016-04-29 08:01:00<0.02[facility]annUR[facility] AND QRXSD5025-95-85 06:18:007 [facility] AND OZDWS5316-52-93 06:18:001[facility]UR[facility] AND GTAJA8038-05-42 06:18:002.0[facility]annUR[facility] AND JNSVB8090-49-28 06:18:00 Positive *ABN*(04/29/16 1:18 AM)[facility] AND AIDEO4512-40-82 06:18:00Negative *NA*(04/29/16 1:18 AM)[facility] TJHAD8115-49-03 06:18:00Small *ABN*(04/29/16 1:18 AM)[facility] SVDIO1745-52-71 06:18:00Small *ABN*(04/29/16 1:18 AM)[facility] XVXRQ2688-61-76 06:18:005.0[facility]annUR[facility] AND HRHGO2133-94-17 06:18:00Yellow *NA*(04/29/16 1:18 AM)[facility] NVHRJ7850-03-21 06:18:001.011[facility] URINE AND WKBAA9809-50-95 06:18:00Clear (04/29/16 1:18 AM)[facility] HermannCARDIAC MSXTDFG4196-83-37 05:39:0050[facility] HermannCARDIAC QORCEQY2150-68-22 05:39:00< 0.02[facility] HermannCARDIAC XWYGDMG2426-36-42 05:39:0058[facility]annCARDIAC IZGIFLM7734-83-79 05:39:000.9[facility]annCARDIAC JPWYMSB5929-09-22 05:39:00 1.6[facility] HermannCHEM PLSIA5728-36-85 05:39:000.6[facility] HermannCHEM PANEL 2016-04-29 05:39:0094[facility] HermannCHEM SRKFA1766-87-62 05:39:004.1[facility]annCHEM RQTFN9502-18-34 05:39:000.6[facility]annCHEM RVCKM8478-65-54 05:39:003.3[facility] HermannCHEM BGKTQ4833-35-57 05:39:39089Lzabgree HermannCHEM ISJYB7631-42-56 05:39:002.6[facility] HermannCHEM NIOWN5786-71-09 05:39:0021 [facility]annCHEM BOTXF4164-30-82 05:39:0027[facility]annCHEM PANEL 2016-04-29 05:39:008.2[facility]annCHEM YEJOW6905-01-93 05:39:006.7[facility] HermannCHEM HRNIS7274-51-57 05:39:0010.3[facility]annCHEM RGKSS4688-45-53 05:39:001.5[facility]annCHEM XZIRY8910-37-22 05:39:50563Ctsgwskv HermannCHEM HLNDN3726-98-96 05:39:0038[facility]annCHEM ZAOWI8534-73-98 05:39:0016 [facility]annCHEM EUSKG3435-79-37 05:39:0079[facility] HermannCHEM PANEL 2016-04-29 05:39:0011[facility] HermannCHEM QXABA4238-87-78 05:39:000.70[facility]annCHEM UMEEJ9356-82-83 05:39:77116Iwywaugc HycrqbyZESMPVFNIE3763-80-66 05:39:00* Test Item Value Reference Range Interpretation Comments PTT (test code = PTT) 32.1 s 22.9-35.8 [facility] PxhogujDUMRZFASRS0326-41-94 05:39:001.42[facility] HermannHEMATOLOGY 2016-04-29 05:39:00* Test Item Value Reference Range Interpretation Comments PT (test code = PT) 17.7 s 12.0-14.7 [facility] CfrguidCDCFQDJEGN1063-42-97 05:39:00* Test Item Value Reference Range Interpretation Comments MCH (test code = MCH) 30.6 pg 27.0-31.0 [facility] NmmdqgkMRMYSZZLJZ3933-53-79 05:39:0090.3[facility] HermannHEMATOLOGY 2016-04-29 05:39:0011.3[facility] KyhfwdqSERGHKHBPN4992-62-93 05:39:003.68[facility] NdpgjcwJIMRULAHGP9578-99-24 05:39:0033.2[facility] SsfxvigXTKYGJENRP7873-72-39 05:39:0010.9[facility] SnctfzyWEVCQQTAKU4501-16-97 05:39:005.6[facility] KGHLCXBYYG9679-63-93 05:39:0052[facility] UhorayiLKXFKYJZYL8441-11-09 05:39:0015.2 [facility] ItyydmzFABFRUGILE1726-21-52 05:39:0033.9[facility] HermannHEMATOLOGY 2016-04-29 05:39:002.0[facility] NgoibiuUOIPBNYCZA1612-02-04 05:39:008.1[facility] NhgjuudGWKDODUIZN1987-19-17 05:39:000.9[facility] AoylfztVZKZJSXAMO9687-64-68 05:39:0063.2[facility] WbylncnDFOMNXDLFG5405-40-34 05:39:0025.8[facility] QUBYSGBRHU7378-12-41 05:39:000.1[facility] FzcdmqgRPEQNRNUSJ8323-30-30 05:39:001.4 [facility] DavmsdiPYMXOTTASJ8314-74-54 05:39:000.1[facility] HermannHEMATOLOGY 2016-04-29 05:39:000.5[facility] ZbhaphcYMMGFITDCJ1109-68-47 05:39:003.5[facility] HermannBEDSIDE GLUCOSE MTTNNMO0707-72-94 16:42:78986Usmxiyot HermannBEDSIDE GLUCOSE GBNYONZ3022-02-96 12:53:19788Bqfnlorb HermannBEDSIDE GLUCOSE TESTING 2012-03-23 09:13:62590Dxsxlysg EjbyovaJTWTWDIMTP1600-67-92 08:39:0060[facility] LirbkjbBPXHZUIACC5853-26-74 08:39:78246Kvdiimsp EwwilmyRGBYJACQS8181-23-54 06:05:0019[facility] TiaudxgOJTGKVZNU0434-66-07 06:05:000.8[facility] EUFTICTTW9055-90-84 06:05:77171Tzqkwemz PsrdiuzMXLUGBDEV2329-43-88 06:05:003.7 [facility] JpheubcLAMNEJLFT2843-62-61 06:05:52290Dwxodmxn HermannCHEMISTRY 2012-03-23 06:05:007.8[facility] NnfsuzkUZYGDNMGB7838-02-87 06:05:53393Maojabkk KzyulwsTLTTOFPWK8448-50-84 06:05:007[facility] UumcclmSOZOPCKFI3533-33-22 06:05:00 16.7[facility] EhyiwvaOFLYSKYWS0602-05-69 06:05:002.2[facility] HermannCHEMISTRY 2012-03-23 06:05:001.8[facility] MokwoxnOBOQOHKMF4044-52-25 06:05:001.22[facility] TufyjrcYDRKSONJR7619-61-64 06:05:001.16[facility] XqunfuyPDWUGOAFL2277-93-61 06:05:004.88[facility] GtxkjexGHYALARKE5224-17-33 06:05:004.64[facility] SZUZEOGKBA0288-37-20 06:05:00* Test Item Value Reference Range Interpretation Comments PT (test code = PT) 15.4 s 12.0-14.7 H [facility] CtipxdkQJOEWROPMJ4538-20-46 06:05:001.20[facility] HermannHEMATOLOGY 2012-03-23 06:05:00* Test Item Value Reference Range Interpretation Comments PTT (test code = PTT) 32.2 s 22.9-35.8 N [facility] EdulzxdDLRCMWMKPA7893-79-59 06:05:007.8[facility] HermannHEMATOLOGY 2012-03-23 06:05:0011.8[facility] LylmvsiLISDDNDGGG0283-89-53 06:05:003.77[facility] OjyolobVAASJKUDMI6516-95-82 06:05:0034.0[facility] OxxlchrXLLXGOMLTM6156-66-42 06:05:00* Test Item Value Reference Range Interpretation Comments MCH (test code = MCH) 31.4 pg 27.0-31.0 H [facility] VpnhwhjPTJAKEPWCS7072-28-78 06:05:0078[facility] HermannHEMATOLOGY 2012-03-23 06:05:0090.4[facility] QzzlagrJDFRRPJMAK1021-82-79 06:05:0013.6[facility] ZkpdfmeOHOKGKOFDN7960-59-98 06:05:0034.7[facility] BuyaezhUWXYFNUJDH2334-76-29 06:05:0010.4[facility] IrmhibmPLOFFVCECO9511-88-62 06:05:0080.1[facility] EECZTORISS9629-29-56 06:05:0015.4[facility] QpwnehuQDPPJLCEYZ2069-76-60 06:05:00 4.3[facility] VfsfhlnQKSEGIQOGU7288-62-38 06:05:000.3[facility] HermannHEMATOLOGY 2012-03-23 06:05:000.0[facility] SnkespvVUJGUAFWBB2976-54-08 06:05:000.0[facility] IacywcgDDOSGOWMOF5504-93-50 06:05:000.2[facility] HxbhaglUPIILMNVZI2511-74-92 06:05:000.0[facility] RilimjnLITBDETJPW9268-86-99 06:05:006.2[facility] BNVVUBDFGQ6640-26-57 06:05:001.2[facility] KbjvhuuBQOMRIHPON3550-42-96 21:17:64831 [facility] LzzqbduCPKEIRNOUI8076-66-90 21:17:0051[facility] HermannCHEMISTRY 2012-03-22 19:40:62758Deogynxe SipxqgvMDNOHIIXX7827-48-91 19:40:0022[facility] YkkgcsgTAZCQOGXY0577-40-03 19:40:007.6[facility] VurukdkVJHVHTUDG9729-16-18 19:40:0013.8[facility] RdnmladZVHYWRQCN3598-76-18 19:40:003.8[facility] ONYKEHXFI5338-17-93 19:40:000.7[facility] UplnfdjDHESSHIIU1170-45-59 19:40:59820 [facility] XwdzrirPJGEJAOFK2539-81-47 19:40:007[facility] CvxvghlQUDKDNKPO3919-75-96 19:40:61349Lmhqgaul IzfhaojRUYFUVPND0885-80-98 19:40:002.4[facility] RSFKQWAYF4132-35-27 19:40:001.8[facility] LajifakILPWKBUQGJ0721-47-23 19:40:0035.2 [facility] SkzorqiTTDNHMDDSY1473-38-35 19:40:0011.9[facility] HermannURINALYSIS 2012-03-22 19:40:00Negative (03/22/2012 14:40:00) [facility] HermannURINALYSIS 2012-03-22 19:40:00Negative *NA*(03/22/2012 14:40:00) [facility] EJARXAKSWY6354-47-88 19:40:00Trace *ABN*(03/22/2012 14:40:00) [facility] EPMWRFKGLA3493-42-83 19:40:00Trace *ABN*(03/22/2012 14:40:00) [facility] YSCRPGEPOH5869-83-96 19:40:00Occasional /LPF *NA*(03/22/2012 14:40:00) [facility] GiaqvvzFGZCCHUJWZ0738-11-12 19:40:0042[facility] VuhdscyGVKLUFKZHF9382-20-74 19:40:005[facility] SbofcueTPWHVQZIRS8599-75-50 19:40:00Negative mg/dL *NA*(03/22/2012 14:40:00) [facility] JbsyvryJMSQFPJFQX8477-41-07 19:40:00Clear (03/22/2012 14:40:00) [facility] AxeyjroYKNAMHBLSG2066-57-14 19:40:00Negative mg/dL *NA*(03/22/2012 14:40:00) [facility] EeumqlgIIQOVSLUAH8707-31-90 19:40:00 Negative mg/dL (03/22/2012 14:40:00) [facility] FekljabZFOORJNGSW0499-48-19 19:40:006.5[facility] DkdcyisJPRBDAHPNL9230-70-46 19:40:001.038[facility] SGCZYBSFER2029-54-49 19:40:00Yellow *NA*(03/22/2012 14:40:00) [facility] KJYILGEJW7064-91-03 16:52:003.4[facility] BkbfwmiAXJXWIQTQ6804-12-87 16:52:26420 [facility] QchsiuoENNHNQAIO9415-66-32 16:52:0029.0[facility] HermannCHEMISTRY 2012-03-22 16:52:001.08[facility] NmfbyayCQCRPWSVB7402-80-04 16:52:001.0[facility] JqpquesOFAOBLYNW1433-19-15 16:52:0095[facility] LpgtwccAXBMTFCOC6391-66-18 16:52:0099.0[facility] LxyhpmoDWHAPSFKU3745-31-75 16:52:00-1[facility] OFBLKDKWM0026-91-87 16:52:22506Qifntvpw SufhqaoMRAYNWSCB9801-84-46 16:52:0041 [facility] BsfvavrGIUTFWMEZ7596-71-81 16:52:0024[facility] HermannCHEMISTRY 2012-03-22 16:52:007.38[facility] EmazuasYVWWSVHOB3606-30-99 16:52:0037.0[facility] ZherbtaGOGGUHULTW3733-09-76 16:45:53715Qvcvyqyj WxlgzlgSDZRILUPTG2653-48-39 16:45:0023[facility] ZYHXBUC2272-02-88 15:00:00Product available (03/22/2012 10:00:00) [facility] LFNAIDE5260-42-63 12:00:00 Negative (03/22/2012 07:00:00) [facility] DdvsilbFKUIYLAAQ1181-93-32 19:45:75932 [facility] HvyjalqLOCLMQVGM6426-49-96 19:45:009.0[facility] HermannCHEMISTRY 2012-03-08 19:45:0026[facility] IpczhdpJIQMDXDPZ0855-10-20 19:45:000.5[facility] NakmnjaIVGGAPSLL6130-76-92 19:45:0064[facility] HmhptujDHVJCKOZW4448-13-54 19:45:008.3[facility] LpkdiqrTZGGZNLRM0361-58-78 19:45:83440Hzwtpabq [facility] OUMGJOBLA1951-11-54 19:45:99241Zxqmvdgo EgtecbrFFJQMCGZL2085-16-07 19:45:0089 [facility] HtumargLKKQKYAPX5597-29-62 19:45:000.9[facility] HermannCHEMISTRY 2012-03-08 19:45:0010[facility] BxnabmkOWCQIKKYA8391-17-99 19:45:0065[facility] WzayialLRHSURJWC0909-83-45 19:45:003.7[facility] OijvmzmSPYXTEFVF7905-66-71 19:45:003.7[facility] PzekptsHUWARABLE5221-01-84 19:45:000.8[facility] LNEQMVXLL9595-70-34 19:45:0014.7[facility] YxklflpUWOLIHZGX1445-69-24 19:45:0011 [facility] JrmgrxzXQGMZJVSI5449-19-56 19:45:004.6[facility] HermannHEMATOLOGY 2012-03-08 19:45:00Slight *ABN*(03/08/2012 14:45:00) [facility] HermannHEMATOLOGY 2012-03-08 19:45:000.0[facility] TkztpimUECFWUQDXC7789-00-50 19:45:0055.0[facility] SspywtgEHDYHRWIFU7474-08-47 19:45:00Normal (03/08/2012 14:45:00) [facility] UvzbstbXVJTEZWGEP2058-48-54 19:45:00Normal (03/08/2012 14:45:00) [facility] BwunoazMEGTGANRPA5036-04-69 19:45:000.6[facility] WtlzmusEJUUWBFFNA0805-55-51 19:45:000.1[facility] GcdqavgCEOPXNRBHX4267-29-76 19:45:000.5[facility] SAINLPQIQL3566-40-34 19:45:002.6[facility] ErywbsaAPLOLTNVWW1595-11-23 19:45:004.0 [facility] KikkvffKDSOTAHNMI5162-68-84 19:45:001.4[facility] HermannHEMATOLOGY 2012-03-08 19:45:0035.5[facility] KunatxzAEPUHHFTJX9918-29-56 19:45:007.6[facility] NqsnioaLXXCXYLJYN0754-88-75 19:45:00* Test Item Value Reference Range Interpretation Comments PTT (test code = PTT) 34.8 s 22.9-35.8 N [facility] CenterXyzochlZDCDNAWUEM1928-86-43 19:45:00* Test Item Value Reference Range Interpretation Comments PT (test code = PT) 14.7 s 12.0-14.7 N [facility] CenterTsriyroTGGHFVQKOP1510-81-94 19:45:001.15[facility] HermannHEMATOLOGY 2012-03-08 19:45:0013.2[facility] PaplkaxYDMGUHRETU9786-45-15 19:45:007.3[facility] BpnkrfiVPVRHJXIOF5976-89-68 19:45:0034.5[facility] GrvpmyhPEFUKIGZOY0043-03-96 19:45:004.62[facility] HkcdczxLWQGYUOTHJ9492-25-51 19:45:0090.5[facility] ZYHOMMPFPD7427-56-72 19:45:00* Test Item Value Reference Range Interpretation Comments MCH (test code = MCH) 31.3 pg 27.0-31.0 H [facility] QfxyecwJKOVVOULJI1427-35-58 19:45:0014.4Meidrial HermannHEMATOLOGY 2012-03-08 19:45:0041.8Meid[facility] QbehxznPSIXJPGTZD9519-54-05 19:45:0012.5[facility] HfnzucdPWVBVQZUSW7527-55-05 19:45:79431Ogjubgpf [facility]
--- NOTE | 2020-03-15 11:40 | NUR ---
1ST UNIT INFUSING. SEE FLOW SHEET FOR DETAILS
[2020-03-15] MEDS ORDERED: LACTULOSE SYRUP 20 GM/30 ML UDC PO SCH (12:00)
--- NOTE | 2020-03-15 13:05 | NUR ---
PT ARRIVED TO ROOM 208 FROM ER. PT AWAKE, ALERT, IN STABLE CONDITION, UNIT OF BLOOD INFUSING. PT TOLERATING WELL. WILL CONTINUE TO MONITOR.
--- NOTE | 2020-03-15 13:29 | NUR ---
1ST UNIT OF BLOOD FINISHED TRANSFUSING. NOTED PT'S BLOOD BAND NOT VERIFIED. WILL RE-TYPE AND CROSS PATIENT PRIOR TO ADMINISTERING 2ND UNIT.
[2020-03-15] MEDS ORDERED: ACETAMINOPHEN 325 MG TAB PO PRN (13:45)
[2020-03-15] MEDS ORDERED: HYDRALAZINE HCL 20 MG/ML VIAL IV PRN (13:45)
[2020-03-15] MEDS ORDERED: DOCUSATE SODIUM 100 MG CAP PO PRN (13:45)
[2020-03-15] MEDS ORDERED: MELATONIN 5 MG TABLET PO PRN (13:45)
[2020-03-15] MEDS ORDERED: PHYTONADIONE 10 MG/ML AMP SQ ONE (14:00)
[2020-03-15] MEDS: FUROSEMIDE INJ 10 MG/ML 2 ML VIAL IV PRN (14:20)
[2020-03-15] MEDS ORDERED: VANCOMYCIN 750MG/NS 150ML IVPB 150 ML IV ONE (14:30)
[2020-03-15] MEDS: LACTULOSE SYRUP 20 GM/30 ML UDC PO SCH ×2 (17:14→20:10)
[2020-03-15] MEDS: LEVETIRACETAM 500 MG TAB PO SCH (17:14)
[2020-03-15] MEDS: MEROPENEM 500MG/ NS 50ML 50 ML IV SCH (17:14)
[2020-03-15] MEDS ORDERED: SODIUM CHLORIDE 0.9% 250ML 250 ML ONE ×2 (17:30→22:07)
--- NOTE | 2020-03-15 17:36 | NUR ---
FFP INFUSING; PT IN STABLE CONDITION.
[2020-03-15 18:43] LABS: IRON 74 ug/dL (50-170); TRANSFERRIN < 70 mg/dL (180-382)
--- NOTE | 2020-03-15 19:00 | NUR ---
Resumed care of patient. Patient awake and resting in bed, respirations even and unlabored on room air, no s/s of distress at this time. Bed locked and in lowest position, side rails upx3, alarm on, call light placed within reach. Patient instructed to call for assistance if needed, verbalized understanding. All safety measures in place.
[2020-03-15 19:03] LABS: FERRITIN 1626.51 ng/mL (4.63-204.00)
[2020-03-15 19:39] LABS: % IRON SATURATION 110 % (15-50); TOTAL IRON BINDING CAPACITY 67 ug/dL (261-478)
--- NOTE | 2020-03-15 19:56 | NUR ---
Consult called to Dr. Zhou's answering service.
[2020-03-15] MEDS: MIDODRINE HCL 5 MG TABLET PO SCH (20:10)
--- NOTE | 2020-03-15 21:00 | Consultation ---
DATE OF CONSULTATION: 03/15/2020 GI Consultation Note REASON FOR CONSULT: Evaluate her for any underlying hepatic encephalopathy. HISTORY OF PRESENTING ILLNESS: A 00-cpgib-xaf very pleasant female, who is very well known to me. She follows up in my office. Although, I have not been seeing her for last 4 to 5 months. She has a history of alcoholic liver cirrhosis. Quit drinking alcohol 2 years ago. Has history of recurrent hepatic encephalopathy that required hospitalization in the past. She called the ambulance because she was feeling very emotional, agitated, weak because her family members are not treating her well. When I was taking the history at the bedside, the patient was sobbing, crying, telling me that her alarmoqu-jq-mrd is not taking good care of her. She is very mean and disrespectful to her. She is emotionally very drained. She is a very alert, awake, oriented. She denies any abdominal pain. Having regular bowel movements. She is not sure about adherence with her outpatient medication. When she arrived in the emergency room, she was noted to be hemodynamically stable, afebrile. She was recently treated for urinary tract infection. Blood work revealed significant anemia with a hemoglobin of 6.7 and hematocrit of 20.2 with MCV 94.4. The patient categorically denies any episode of hematemesis, hematochezia, or melena. Reports no other source of blood loss such as epistaxis, hematuria, or polymenorrhea. Ammonia level was also found and normal. Urinalysis suggestive of urinary tract infection. Urine culture and blood culture have been drawn. The patient got admitted for further evaluation and GI is being requested to see if patient has any underlying hepatic encephalopathy. REVIEW OF SYSTEMS: A 12-point system reviewed, symptomatology is limited as per HPI. PAST MEDICAL HISTORY: Alcoholic liver cirrhosis with a history of hepatic encephalopathy in the past. Alcoholism in remission, quit drinking 2 years ago. PAST SURGICAL HISTORY: Cholecystectomy, , upper endoscopy. FAMILY HISTORY: Noncontributory. SOCIAL HISTORY: Former smoker, quit drinking 2 years ago. Never used any illicit drugs. ALLERGIES: NO KNOWN DRUG ALLERGIES. MEDICATIONS: Home medications: Iron 325 mg p.o. twice daily, Lasix 40 mg daily, lactulose 15 mL three times daily, levetiracetam 500 mg twice daily, midodrine 5 mg three times daily, pantoprazole 40 mg daily, rifaximin 550 mg daily, spironolactone 25 mg daily, thiamine 100 mg daily, folic acid 1 mg daily. Inpatient medication: Reviewed, as per MAR. The patient is also getting intravenous meropenem along with outpatient medication. PHYSICAL EXAMINATION: VITAL SIGNS: Temperature 97.6, pulse 90, respirations 20, blood pressure 102/47, and oxygen saturation 99% on room air. GENERAL: Obese body habitus, not in any apparent distress. Alert, awake, and oriented x3. HEENT: Icteric sclerae. NECK: No neck or axillary adenopathy. CVS: S1, S2 regular. LUNGS: Bilaterally grossly clear. ABDOMEN: Soft and nondistended. No palpable shifting dullness. Nontender. No mass or hernia. Positive bowel sounds. EXTREMITIES: Warm. No leg edema. LABORATORY DATA: WBC 3.35, hemoglobin 6.7, hematocrit 20.2, MCV 94.4, and platelet count 36. Sodium 137, potassium 3.6, chloride 100, bicarb 25, BUN 12, creatinine 1.81, glucose 103. Liver enzymes showed a total bilirubin 4.0, AST 63, ALT 29, alkaline phosphatase 113. Chest x-ray showed cardiomegaly with mild interstitial pulmonary edema. Ammonia level 92. IMPRESSION: Alcoholic liver cirrhosis without any evidence of overt hepatic encephalopathy at this time. PLAN: Low-salt diet, treat urinary tract infection, add spironolactone 100 mg daily, IV Lasix for pulmonary edema as needed per primary team. Lactulose to ensure one or two bowel movement daily. Continue Xifaxan. Profound anemia, without any gross GI bleeding. Recommend to check stool for occult blood. Check iron profile in the blood already drawn in the lab. Transfuse to keep at least hemoglobin above 7. We will monitor her clinically. I thank Dr. Knight for allowing me to participate in the care of this patient. Perico Duenas MD [facility] /[id number]
[2020-03-15 21:39] LABS: CREATINE KINASE MB 3.6 ng/mL (0-5.0)
--- NOTE | 2020-03-15 21:57 | NUR ---
Verified with lab that patient received 1 unit of blood earlier today that was initiated in the ER and completed on the floor. Patient then received 1 unit of FFP on the floor and is due to receive an additional second unit of blood at this time.
[2020-03-15 22:04] LABS: INR 1.89; PROTHROMBIN TIME 22.9 seconds (11.9-14.5)
[2020-03-15 22:05] LABS: PARTIAL THROMBOPLASTIN TIME 44.4 seconds (23.8-35.5)
--- NOTE | 2020-03-15 22:30 | History and Physical ---
CHIEF COMPLAINT: Altered mental status. HISTORY OF PRESENT ILLNESS: This is a 64-year-old female, morbidly obese, has a history of liver cirrhosis with hepatic encephalopathy in which she follows up with a liver specialist as an outpatient with Dr. Duenas, history of anemia in the past, presents to the ED with underlying encephalopathy and confusion. According to the reports, the patient has been very combative at home and very confused. She has become very violent and aggressive to the family. She has been taking her lactulose at home according to the reports. There are no family at bedside. I spoke to the patient, she was alert, awake, and oriented x2. She was able to answer a lot of my questions. She does have underlying Asterixis. The patient was seen and evaluated at bedside on the medical floor. She is currently very stable, vital signs were stable. She was able to answer my questions with no issues at this time. REVIEW OF SYSTEMS: Pertinent positives, encephalopathy, confusion. Unable to obtain the rest of 14-point review of systems at this time due to patient's confusion. ALLERGIES: NO KNOWN DRUG ALLERGIES. HOME MEDICATIONS: 1. Iron. 2. Furosemide. 3. Lactulose. 4. She takes Keppra. 5. Midodrine. 6. Protonix. 7. Rifaximin. 8. Spironolactone. 9. Thiamine. 10. Folic acid. PAST MEDICAL HISTORY: She has history of seizures, chronic hypotension, liver cirrhosis, hepatic encephalopathy, morbidly obese. PAST SURGICAL HISTORY: She is not able to tell me any of her history, but according to the ED note past surgical history, she had an aneurysm repair. FAMILY HISTORY: Reports none. SOCIAL HISTORY: Former smoker. No drugs. No alcohol. PHYSICAL EXAMINATION: VITAL SIGNS: Temperature is 98.5, pulse 89, respiratory rate 16, blood pressure 111/63, pulse ox 99% on room air. GENERAL: No acute distress. She is alert, oriented x2 only. CARDIOVASCULAR: Positive S1 and S2. No murmurs, rubs, or gallops. ABDOMEN: Soft, nontender, nondistended to palpation. Bowel sounds present. PULMONARY: Clear to auscultation bilaterally. No wheezing, rales, or rhonchi. No crackles appreciated. MUSCULOSKELETAL: Strength is 5/5 throughout. No evidence of muscle deficits on examination. NEUROLOGICAL: She is confused on examination. She is alert, oriented x2. EXTREMITIES: No edema. Good range of motion throughout. LABORATORY FINDINGS: Show white count was 3.3, hemoglobin is 6.7, hematocrit is 20, and platelets of 36. Her coagulation; PT 30, INR 2.6, PTT 51. Chemistry; sodium 137, potassium is 3.6, chloride 100, bicarb 25, anion gap of 15, BUN is 12, creatinine is 1.81. Lactic acid was 4.3, now 2.1, calcium is 7.7, magnesium 1.1, total bilirubin is 4, AST is 63, ALT 29, alkaline phosphatase 113. Ammonia level was 92. Troponins were negative. Albumin was 2.7, lipase was 9. Urinalysis consistent with UTI, trace ketones, 1+ protein, 11-20 rbc's, 21-50 wbc's with a few epithelial cells and bacteria noted. Stool occult blood was found to be negative. Microbiology; blood and urine cultures were collected. IMAGING STUDIES: CT brain shows no acute intracranial abnormalities. 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 Focal chronic nonspecific left parietal insult. Incidental findings noted above. IMPRESSION: 1. Hepatic encephalopathy. 2. Anemia with negative stool occult blood. 3. Thrombocytopenia. 4. Coagulopathy. 5. Electrolyte abnormalities. 6. History of seizures. 7. Possible urinary tract infection. PLAN: At this time, the patient was alert, awake, and oriented x2. She was able to answer several questions with me at bedside. Nurse was present during my interview with her. 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 Nothing acute was noted on CT brain. It seems like her underlying encephalopathy seems to be from hepatic encephalopathy. At this time, we will go ahead and schedule lactulose t.i.d. and add rifaximin, thiamine and folic acid. As for her low hemoglobin, 2 units packed RBCs have been ordered. Her platelets secondary to her liver cirrhosis, which we will monitor very closely. We will add Protonix 40 mg daily as well. As for her supratherapeutic INR, this is all secondary to liver cirrhosis. Vitamin K given, FFP ordered. Replace magnesium and the rest of electrolytes accordingly. Restart Keppra for history of seizures in the past. She did have a potential urinary tract infection. We will continue with broad-spectrum IV antibiotics and follow blood and urine cultures. For nutrition, heart healthy diet. We will go ahead and consult with GI to come and evaluate the patient for underlying hepatic encephalopathy. If the patient maintains to be confused, we will get an MRI of the brain and Neurology consultation. Hold anticoagulation due to history of chronic subdural bleeding. Put her on ISRAEL hoses. Get PT/OT evaluation. Otherwise, plan of care discussed with the patient and nursing staff at bedside. We will go ahead and repeat labs in the morning including INR level. MD MURALI Sahni/MODZoraida /[id number]
--- NOTE | 2020-03-15 22:38 | NUR ---
Second unit of blood transfusing at 75 ml/hr. Vital signs stable from baseline, no s/s of distress or transfusion reaction at this time. All safety measures in place.
[2020-03-16] VITALS (7 sets, daily range): BP systolic 98–118; BP diastolic 43–56
[2020-03-16] MEDS: MEROPENEM 500MG/ NS 50ML 50 ML IV SCH ×4 (00:48→17:00)
[2020-03-16] MEDS: FUROSEMIDE INJ 10 MG/ML 2 ML VIAL IV PRN (01:08)
--- NOTE | 2020-03-16 02:11 | NUR ---
Transfusion completed. Vital signs stable from baseline, no s/s of distress or transfusion reaction. All safety measures in place.
[2020-03-16 06:13] LABS: BASOPHILS % 1.1 % (0.0-1.0); EOSINOPHILS # (AUTO) 0.2 (0.0-0.4); EOSINOPHILS % 6.3 % (0.0-6.0); HEMATOCRIT 25.8 % (34.2-44.1); LYMPHOCYTES % 25.3 % (18.0-39.1); MEAN CORPUSCULAR HEMOGLOBIN 33.5 pg (28-32); MEAN CORPUSCULAR HGB CONC 34.9 g/dL (31-35); MEAN CORPUSCULAR VOLUME 95.9 fL (81-99); MONOCYTES # (AUTO) 0.4 (0.2-0.8); MONOCYTES % 9.7 % (4.4-11.3); NEUTROPHILS # (AUTO) 2.2 (2.1-6.9); NEUTROPHILS % 57.1 % (38.7-80.0); PARTIAL THROMBOPLASTIN TIME 45.4 seconds (23.8-35.5); RED BLOOD COUNT 2.69 x10e6/uL (3.6-5.1); RED CELL DISTRIBUTION WIDTH 19.1 % (11.7-14.4)
--- NOTE | 2020-03-16 06:17 | NUR ---
Patient awake and resting in bed, respirations even and unlabored on room air, no s/s of distress at this time. All safety measures in place.
[2020-03-16 06:25] LABS: CREATINE KINASE MB 2.4 ng/mL (0-5.0)
[2020-03-16 06:26] LABS: CALCIUM 7.8 mg/dL (8.4-10.2); CREATININE, SERUM 1.66 mg/dL (0.57-1.11)
[2020-03-16 06:34] LABS: INR 1.96; PROTHROMBIN TIME 23.6 seconds (11.9-14.5)
--- NOTE | 2020-03-16 06:35 | NUR ---
Notified by lab of lactic acid 2.7. Will pass along to day shift RN and notify MD.
--- NOTE | 2020-03-16 07:00 | NUR ---
BEDSIDE SHIFT REPORT RECEIVED FROM THE BREEDER SERVICE TECHNICIAN RN. EDUCATED PT ABOUT FALL PRECAUTIONS. PT VERBALIZED UNDERSTANDING. BED IS LOW AND LOCKED. SIDE RAILS X2. CALL LIGHT WITH IN EASY REACH. BED ALARM IS ON. ALL SAFETY MEASURES IN PLACE. PT DENIES NEEDS AT THIS TIME.
--- NOTE | 2020-03-16 07:30 | NUR ---
PAGED DR. PUENTES AND REPORTED THE LACTIC ACID LEVEL 2.7.
--- NOTE | 2020-03-16 07:35 | NUR ---
PAGED LAB REGARDING CBC RESULT
[2020-03-16 07:58] LABS: PLATELET COUNT 34 x10e3/uL (140-360)
--- NOTE | 2020-03-16 08:00 | NUR ---
MIKEY PUENTES AND REPORTED PLATELET LEVELS 34.
[2020-03-16] MEDS: PANTOPRAZOLE SOD 40 MG TABEC PO SCH (08:12)
[2020-03-16] MEDS: FOLIC ACID 1 MG TAB PO SCH (08:12)
[2020-03-16] MEDS: MIDODRINE HCL 5 MG TABLET PO SCH ×3 (08:13→21:23)
[2020-03-16] MEDS: LACTULOSE SYRUP 20 GM/30 ML UDC PO SCH ×3 (08:13→21:22)
[2020-03-16] MEDS: THIAMINE HCL 100 MG TAB PO SCH (08:13)
[2020-03-16] MEDS: LEVETIRACETAM 500 MG TAB PO SCH ×2 (08:13→16:06)
[2020-03-16] MEDS: RIFAXIMIN 550 MG TABLET PO SCH (08:14)
[2020-03-16] MEDS ORDERED: PANTOPRAZOLE SOD 40 MG TABEC PO SCH (09:00)
[2020-03-16] MEDS ORDERED: LORAZEPAM 0.5 MG TAB PO PRN (14:45)
[2020-03-16] MEDS ORDERED: LORAZEPAM INJ 2 MG/ML VIAL IM PRN (14:45)
--- NOTE | 2020-03-16 17:15 | NUR ---
HEMATOLOGY/ONCOLOGY CONSULTATION NOTE Referring Physician: Dr. Alisson Knight Consulting Physician: Dr. Hallie Aviles Reason for Consultation: Thrombocytopenia, Anemia History of Present Illness: Ms. Clements is a 64-year-old female, with past medical history of seizures, chronic hypotension, liver cirrho sis, hepatic encephalopathy, anemia, and morbid obesity who was admitted through the ED for hepatic encephalopathy with confusion. Patient follows with Dr. Duenas (Dispute Coordinator) for cirrhosis outpatient. Per family, patient became violent and aggressive. She has now been started on IV antibiotics for possible UTI, rifaximin, lactulose, thiamine, folic acid, and has received 2 unit PRBC, 1 unit FFP, and Vit K x 1 secondary to anemia and coagulopathy. Hematology/Oncology has been consulted to assist with management. Presently, patient is resting comfortably. She appears to be in NAD. Still somewhat confused however seems to be improving. She states she drank whiskey recently. Talked with nurse at bedside. Allergies: NKDA Past Medical History: Seizures, chronic hypotension, liver cirrhosis, hepatic encephalopathy, anemia, and morbid obesity Past Surgical History: Previous aneurysm repair Past Family History: Noncontributory Past Social History: Former smoker, alcohol use (whiskey), no illicit drug use Review of Systems: 14 point ROS negative unless otherwise stated in the HPI. Physical Exam: Vitals: Reviewed per EMR. General: NAD HEENT: NC, AT; EOMI (mild nystagmus?) Neck: Supple Cardiovascular: RRR Pulmonary: Decreased breath sounds bilaterally Abdomen: Soft, NTND, BS x 4 Musculoskeletal: Moves all Extremities: No cyanosis, no edema Neurologic: Awake, alert, somewhat confused Psychiatric: Cooperative Laboratory Data: 03/16/2020 WBC: 3.0 Hgb: 9.0 Hct: 25.8 Plt: 34 PT: 23.6 INR: 1.96 aPTT: 45.4 BUN: 12 Cr: 1.66 Lactic Acid: 2.0 Iron: 74 TIBC: 67 % Sat: 110 Transferrin: <70 Ferritin: 1626 BNP: 470 Ethyl Alcohol: < 10 FOBT:Negative Radiology Data: 03/15/[address]: 1. No acute intracranial abnormalities. 2. 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 3. Focal chronic nonspecific lef t parietal insult. 4. Incidental findings as described. CXR: Cardiomegaly with mild interstitial pulmonary edema. Assessment/Plan: Ms. Clements is a 64-year-old female, with past medical history of seizures, chronic hypotension, liver cirrhosis, hepatic encephalopathy, anemia, and morbid obesity who was admitted through the ED for hepatic encephalopathy with confusion. Patient follows with Dr. Duenas (Gastroenter ologist) for cirrhosis outpatient. Per family, patient became violent and aggressive. She has now been started on IV antibiotics for possible UTI, rifaximin, lactulose, thiamine, folic acid, and has received 2 unit PRBC, 1 unit FFP, and Vit K x 1 secondary to anemia and coagulopathy. Hematology/Oncology has been consulted to assist with management. 1. Anemia: Appears acute on chronic secondary to underlying alcoholic liver disease. S/p 2 unit PRBC transfused with improvement in hemoglobin. No signs of active bleeding and FOBT negative. Hold off on IV iron infusions as patient ferritin is elevated likely as APR. Elevated %sat, low transferrin, and low TIBC likely related to chronic liver disease. Continue to transfuse to keep hemolgobin > 7. Monitor closely for now. 2. Thrombocytopenia: Likely related to liver cirrhosis however will obtain DIC workup given infection and acute hepatitis panel. Currently, counts are in the noncritical range and no signs of bleeding. Plan to transfuse if platelets < 20,000 or signs of active bleeding. Monitor closely for now. 3. Coagulopathy: Likely related to liver cirrhosis however DIC workup requested as per #2. S/p Vit K x 1 and 1 unit FFP with improvement in INR however now trending back up. Monitor closely for now. 4. Leukopenia: Probably related to cirrhosis with splenomegaly revealed on CT abd/pelvis on 03/08/2020. will consider growth factor support if needed. Counts improving and in noncritical range. Monitor for now. 5. UTI: Afebrile, leukopenic as per #4. Urine culture with gram negative bacillus, blood culture NGTD. Continue on IV antibiotics. Managed per primary team. 6. Hepatic encephalopathy: AMS appears to be improving. Managed per primary with GI on board. 7. Liver cirrhosis: Managed per GI on board. 8. DVT proph: SCDs for now given thrombocytopenia and history of chronic subdural bleed. Above plan discussed with Dr. Aviles. Thank you for the consult. I will be available. Please call with questions. PLAN: At this time, the patient was alert, awake, and oriented x2. She was able to answer several questions with me at bedside. Nurse was present during my interview with her. 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 Nothing acute was noted on CT brain. It seems like her underlying encephalopathy seems to be from hepatic encephalopathy. At this time, we will go ahead and schedule lactulose t.i.d. and add rifaximin, thiamine and folic acid. As for her low hemoglobin, 2 units packed RBCs have been ordered. Her platelets secondary to her liver cirrhosis, which we will monitor very closely. We will add Protonix 40 mg daily as well. As for her supratherapeutic INR, this is all secondary to liver cirrhosis. Vitamin K given, FFP ordered. Replace magnesium and the rest of electrolytes accordingly. Restart Keppra for history of seizures in the past. She did have a potential urinary tract infection. We will continue with broad-spectrum IV antibiotics and follow blood and urine cultures. For nutrition, heart healthy diet. We will go ahead and consult with GI to come and evaluate the patient for underlying hepatic encephalopathy. If the patient maintains to be confused, we will get an MRI of the brain and Neurology consultation. Hold anticoagulation due to history of chronic subdural bleeding. Put her on ISRAEL hoses. Get PT/OT evaluation. Otherwise, plan of care discussed with the patient and nursing staff at bedside. We will go ahead and repeat labs in the morning including INR level.
--- NOTE | 2020-03-16 19:00 | NUR ---
BEDSIDE SHIFT REPORT GIVEN TO THE GRAVITY PROSPECTING OBSERVER HELPER RN. PT DENIED FURTHER NEEDS.
[2020-03-17] VITALS (7 sets, daily range): BP systolic 103–133; BP diastolic 44–75
[2020-03-17] MEDS: MEROPENEM 500MG/ NS 50ML 50 ML IV SCH ×4 (00:20→17:16)
--- NOTE | 2020-03-17 00:21 | Progress Note ---
DATE: 03/16/2020 SUBJECTIVE: The patient reports no abdominal pain. Tolerating oral diet. Regular bowel movement. She is mentating well. REVIEW OF SYSTEMS: GENERAL: Admits to some weakness. CVS: No chest pain or palpitation. RESPIRATORY: No cough or expectoration. MEDICATIONS: Reviewed as per MAR. PHYSICAL EXAMINATION: VITAL SIGNS: Temperature 98, pulse 74, respirations 18, blood pressure 108/52, oxygen saturation 100% on room air. GENERAL: Obese body habitus, not in any apparent distress. HEENT: Oral mucosa is moist. Slightly icteric sclerae. ABDOMEN: Soft, nondistended, and nontender. No digitally appreciable shifting dullness. Bowel sounds present. LABORATORY DATA: Hemoglobin 9 up from 6.7, WBC 3.80, platelet count 34. Iron profile showed a serum iron 74, TIBC 67, iron saturation 110, transferrin less than 70. Stool for occult blood negative. IMPRESSION: Decompensated alcoholic liver cirrhosis with underlying portal hypertension. PLAN: Low-salt diet, continue lactulose to ensure one or two bowel movement daily. Continue lactulose. Hemoglobin improved post transfusion. There is no evidence of any gross GI bleeding. Psychiatric consult by Dr. Zhou appreciated. The patient to follow up with me as an outpatient within one week after discharge. Perico Duenas MD SA/GULSHAN /[id number]
--- NOTE | 2020-03-17 02:36 | Progress Note ---
DATE: 03/16/2020 Medicine Progress Note SUBJECTIVE: The patient was alert, awake, and oriented. In fact, she was sitting on the edge of the bed in a chair and she was eating her lunch. The patient answered 5 of my questions. She was alert, awake, and oriented. She reports that she felt very delirious yesterday, but she knows from her ammonia level, she describes that she apparently did not have much of bowel movement at home. PHYSICAL EXAMINATION: VITAL SIGNS: Temperature is 98, pulse 74, respiratory rate is 18, blood pressure is 180/52, pulse ox 100% on room air. GENERAL: Not in acute distress, alert and oriented x3. Cooperative on examination. HEENT: Head is normocephalic and atraumatic. Eyes; pupils are equal, round, and reactive to light bilaterally. Extraocular movements are intact bilaterally. Throat, no evidence of any erythema or exudates in the posterior pharynx. Has poor dentition. NECK: Supple. Good range of motion. PULMONARY: Clear to auscultation bilaterally. No wheezing, rales, or rhonchi. No crackles appreciated. CARDIOVASCULAR: Positive S1, S2. No murmurs, rubs, or gallops appreciated. ABDOMEN: Soft and nontender to palpation. Bowel sounds present. MUSCULOSKELETAL: Strength is 5/5 throughout. No evidence of muscle deficits on examination. No weakness appreciated SKIN: Intact. Warm to touch. Good cap refill. PSYCHIATRIC: Normal affect and mood. EXTREMITIES: No edema. Good range of motion throughout. LABORATORY FINDINGS: Show white count was 3.8, hemoglobin 9, hematocrit is 25.8, and platelets of 34. Coagulation: PT is 23, INR 1.96, PTT 45. Chemistry: Sodium 139; potassium 4; chloride 106; bicarb 25; anion gap of 12; BUN 12; creatinine is 1.66; lactic acid now down to 2, normal; calcium 7.8; magnesium 1.6; total bilirubin is 6.1; AST 50; ALT 20; alkaline phosphatase 127. Troponins were negative. Albumin was 3. Lipase level was 9. Stool occult was negative x2. Coronavirus pending. Urine culture, gram negative bacillus. Blood cultures, no growth to date. IMAGING STUDIES: Nothing today. IMPRESSION: 1. Hepatic encephalopathy, now improved. 2. Anemia with x2 negative stool occult blood. 3. Thrombocytopenia, chronic. 4. Coagulopathy, chronic. 5. Electrolyte abnormalities. 6. History of seizures. 7. Urinary tract infection. 8. Liver cirrhosis with coagulopathy and thrombocytopenia. PLAN: At this time, the patient is awake, alert, and oriented, and answers several questions at bedside with the nurse present throughout the entire conversation. We will continue with lactulose schedule as well as rifaximin and GI is following. Stool occult was negative x2. Platelets are at baseline. Her INR and PTT improved after given vitamin K as well as FFP. Replace electrolytes accordingly. Restart home medications. Blood cultures no growth. Urine cultures are positive. Continue with IV antibiotic therapy. It seems like her encephalopathy was multifactorial from underlying UTI as well as her elevated ammonia level. I will go ahead and get an ammonia level in the morning. Repeat labs as well. Neurology was consulted, but currently has not seen the patient. Hematology is consulted for thrombocytopenia as well as some other workup. Her renal function is improving. Plan to discharge hopefully in the next 2 days if the patient is stable. MD MURALI Sahni/MODL /[id number]
[2020-03-17 05:11] LABS: BASOPHILS % 0.7 % (0.0-1.0); EOSINOPHILS # (AUTO) 0.3 (0.0-0.4); EOSINOPHILS % 7.9 % (0.0-6.0); HEMATOCRIT 27.2 % (34.2-44.1); HEMOGLOBIN 9.2 g/dL (12.0-16.0); LYMPHOCYTES # (AUTO) 1.2 (1.0-3.2); MEAN CORPUSCULAR HEMOGLOBIN 31.4 pg (28-32); MEAN CORPUSCULAR HGB CONC 33.8 g/dL (31-35); MEAN CORPUSCULAR VOLUME 92.8 fL (81-99); MONOCYTES # (AUTO) 0.4 (0.2-0.8); MONOCYTES % 9.9 % (4.4-11.3); NEUTROPHILS # (AUTO) 2.1 (2.1-6.9); PLATELET COUNT 50 x10e3/uL (140-360); RED BLOOD COUNT 2.93 x10e6/uL (3.6-5.1); RED CELL DISTRIBUTION WIDTH 17.4 % (11.7-14.4)
[2020-03-17 05:19] LABS: INR 2.19; PROTHROMBIN TIME 25.8 seconds (11.9-14.5)
[2020-03-17 05:33] LABS: ANION GAP 11.1 mmol/L (8-16); CREATININE, SERUM 1.38 mg/dL (0.57-1.11); POTASSIUM 4.1 mmol/L (3.5-5.1)
--- NOTE | 2020-03-17 06:47 | Consultation ---
DATE OF CONSULTATION: 03/16/2020 Psychiatric Consultation REASON FOR CONSULTATION: Evaluate the patient's mood. HISTORY OF PRESENT ILLNESS: The patient is a 64-year-old female, admitted to hospital for altered mental status. Psychiatric consultation is called to evaluate the patient's mood. As per record, the patient has history of seizure, chronic hypertension, hepatitis encephalopathy and morbid obesity. The patient is taken to the hospital for altered mental status. As per record, the patient was very combative at home and very confused, and was aggressive with family members. Upon evaluation today, the patient is found to be sitting in the room. She is alert, awake, and oriented to self and place. She claims that she is very anxious because of poor relationship with her daughters. She has been depressed as above because she is unable to see her grand kids. She denies any suicidal or homicidal ideation. She denies any hallucination. No issues with sleep or appetite reported. PAST PSYCHIATRIC HISTORY: The patient denies past psychiatric history of suicide. She denies alcohol or drug use. FAMILY HISTORY: Denies. SOCIAL HISTORY: The patient lives with her . MENTAL STATUS EXAM: An elderly female. She is alert, awake, and oriented to self and situation. Her mood is depressed and anxious. She is tearful. Affect is congruent with mood. Psychomotor state is agitated. Thought process is concrete. No delusion elicited. Denies any suicidal or homicidal ideation. Speech is coherent and regular rate and rhythm. Insight and judgment are fair. Memory appears to be grossly intact. CURRENT MEDICATIONS: 1. Meperidine. 2. Rifaximin. 3. Thiamine. 4. Keppra. 5. Lactulose. 6. Pantoprazole. 7. Folic acid. 8. Furosemide. 9. Acetaminophen. 10. Melatonin. 11. Hydralazine. 12. . 13. Ondansetron. 14. Vancomycin. LABORATORY DATA: WBC 3.80, RBC 2.69, hemoglobin 9, hematocrit 25.8, platelets 234. Sodium 139, potassium 4, chloride 106, CO2 25, BUN 12, and creatinine 1.68, AST 55, ALT 28. ASSESSMENT: 1. Adjustment disorder. 2. Mood. 3. Unspecified psychosis. 4. Rule out delirium. PLAN: 1. Add Zoloft, small dose 5 mg p.o. daily. 2. Ativan 0.5 mg IM q.6 hours p.r.n. 3. Plan to obtain collateral from family members for baseline. 4. Supportive therapy. 5. Monitor for mood. Thank you for this consultation. Dictated by Janny Bradley PA-C Thiago U MD KEIKO Zhou/GULSHAN /[id number]
--- NOTE | 2020-03-17 07:00 | NUR ---
RECEIVED BEDSIDE SHIFT REPORT FROM CORY WARD. PT DENIES NEEDS AT THIS TIME.
[2020-03-17] MEDS: FOLIC ACID 1 MG TAB PO SCH (08:39)
[2020-03-17] MEDS: MIDODRINE HCL 5 MG TABLET PO SCH ×3 (08:39→20:05)
[2020-03-17] MEDS: PANTOPRAZOLE SOD 40 MG TABEC PO SCH (08:39)
[2020-03-17] MEDS: RIFAXIMIN 550 MG TABLET PO SCH (08:39)
[2020-03-17] MEDS: SERTRALINE HCL 50 MG TAB PO SCH (08:39)
[2020-03-17] MEDS: THIAMINE HCL 100 MG TAB PO SCH (08:39)
[2020-03-17] MEDS: LEVETIRACETAM 500 MG TAB PO SCH ×2 (08:39→17:16)
[2020-03-17] MEDS: LACTULOSE SYRUP 20 GM/30 ML UDC PO SCH ×3 (08:39→20:05)
--- NOTE | 2020-03-17 16:18 | NUR ---
HEMATOLOGY/ONCOLOGY PROGRESS NOTE Referring Physician: Dr. Alisson Knight Consulting Physician: Dr. Hallie Aviles Reason for Consultation: Thrombocytopenia, Anemia History of Present Illness: Patient resting comfortably, she denies any new complaints including abd pain, chest pain, dyspnea, or bleeding. Review of Systems: 14 point ROS negative unless otherwise stated in the HPI. Physical Exam: Vitals: Reviewed per EMR. General: NAD HEENT: NC, AT; EOMI Neck: Supple Cardiovascular: RRR Pulmonary: Decreased breath sounds bilaterally Abdomen: Soft, NTND, BS x 4 Musculoskeletal: Moves all Extremities: No cyanosis, no edema Neurologic: Awake, alert Psychiatric: Cooperative Laboratory Data: 03/17/2020 WBC: 4.03 Hgb: 9.2 Hct: 27.2 Plt: 50 PT: 25.8 INR: 2.19 Fibrinogen: 103 D-dimer: 1.50 BUN: 14 Cr: 1.38 Radiology Data: 03/17/2020: None Assessment/Plan: Ms. Clements is a 64-year-old female, with past medical history of seizures, chronic hypotension, liver cirrhosis, hepatic encephalopathy, anemia, and morbid obesity who was admitted through the ED for hepatic encephalopathy with confusion. Patient follows with Dr. Duenas (Gastroenter ologist) for cirrhosis outpatient. Per family, patient became violent and aggressive. She has now been started on IV antibiotics for possible UTI, rifaximin, lactulose, thiamine, folic acid, and has received 2 unit PRBC, 1 unit FFP, and Vit K x 1 secondary to anemia and coagulopathy. Hematology/Oncology has been consulted to assist with management. 1. Anemia: Appears acute on chronic secondary to underlying alcoholic liver disease. S/p 2 unit PRBC transfused with improvement in hemoglobin. No signs of active bleeding and FOBT negative. Hold off on IV iron infusions as patient ferr itin is elevated likely as APR. Elevated %sat, low transferrin, and low TIBC likely related to chronic liver disease. Hemoglobin improving. Monitor closely for now. 2. Thrombocytopenia: Appears secondary to liver cirrhosis. Acute hepatitis panel pending. Thrombocytopenia improving. No signs of bleeding. Monitor closely for now. 3. Coagulopathy: Multifactorial. Likely related to liver cirrhosis in combination with mild DIC secondary to UTI. S/p Vit K x 1 and 1 unit FFP with improvement in INR however now trending back up and low fibrinogen noted as well . Monitor Will give another dose of Vit K x 1. Recheck INR in the morning. clos alisha for now. 4. Leukopenia: Probably related to cirrhosis with splenomegaly revealed on CT abd/pelvis on 03/08/2020. will consider growth factor support if needed. WBC improving. Monitor for now. 5. UTI: Afebrile, leukopenic as per #4. Urine culture with klebsiella pneumoniae- ESBL, blood culture NGTD. Continue on IV antibiotics. Managed per primary team. 6. Hepatic encephalopathy: On Rifaximin, thiamine, and lactulose. Ammonia level improving. AMS improved. Managed per primary with GI on board. 7. Liver cirrhosis: Managed per GI on board. 8. DVT proph: SCDs for now given thrombocytopenia and history of chronic subdural bleed. Above plan discussed with Dr. Aviles. Thank you for the consult. I will be available. Please call with questions.
[2020-03-17] MEDS ORDERED: PHYTONADIONE 10 MG/ML AMP SQ NR (17:00)
--- NOTE | 2020-03-17 22:50 | Consultation ---
DATE OF CONSULTATION: HISTORY OF PRESENT ILLNESS: This is a 64-year-old female, comes in with altered mental status. The patient does not really provide any further information. The patient has history of psych issue. The patient was alert, but confused. The patient, who also has history of liver disease. The patient was found to have abnormal urine cultures. I was asked to see her. The patient denies any urgency or frequency. The patient, who apparently has history of seizure disorder, hypotension, liver cirrhosis, encephalopathy, and obesity. PAST SURGICAL HISTORY: Denies. ALLERGIES: NKA. SOCIAL HISTORY: There is no smoking, drug abuse, or alcohol abuse. FAMILY HISTORY: Unremarkable. The patient was admitted. Her urine cultures showed ESBL. Blood cultures are negative. Her white count 3.35 and hemoglobin 6.7. Sodium 141. PHYSICAL EXAMINATION: GENERAL: Currently alert, confused. VITAL SIGNS: Stable, currently afebrile. HEENT: She is not icteric. NECK: Supple. CHEST: Clear. HEART: S1 and S2. No murmur. ABDOMEN: Soft. IMPRESSION: 1. Cystitis with extended-spectrum beta-lactamase, on meropenem, recommend 1 g IV q.8 for 3 days. 2. Altered mental status, liver encephalopathy. 3. Liver cirrhosis. 4. Anemia. 5. Discussed with medical team. MD DERRELL August/GULSHAN /[id number]
[2020-03-18] VITALS (7 sets, daily range): BP systolic 104–140; BP diastolic 56–84
--- NOTE | 2020-03-18 00:01 | Progress Note ---
DATE: 03/17/2020 SUBJECTIVE: The patient reports no abdominal pain; however, she is incoherent today. Denies any abdominal pain. REVIEW OF SYSTEMS: GENERAL: No fever or chills. CVS: No chest pain or palpitation. RESPIRATORY: No cough or expectoration. MEDICATIONS: Reviewed, as per MAR. PHYSICAL EXAMINATION: VITAL SIGNS: Temperature 98, pulse 72, respirations 18, blood pressure 133/75, oxygen saturation 94% on room air. GENERAL: Not in any acute distress. HEENT: Oral mucosa is moist. Icteric sclerae. ABDOMEN: Soft, nondistended, nontender. No palpable mass or hernia. Positive bowel sounds. LABORATORY DATA: Sodium 141, potassium 4.1, chloride 108, bicarb 26, BUN 14, creatinine 1.38, glucose 62. Ammonia level 65. WBC 4.03, hemoglobin 9.2, hematocrit 27.2, and platelet count 50. IMPRESSION: 1. Decompensated alcoholic liver cirrhosis with underlying portal hypertension. 2. Anxiety and depression, psychiatric is following. PLAN: Continue low-salt diet. Lactulose to ensure 1 or 2 bowel movements daily. Continue Xifaxan. Monitor her clinically. Stringent outpatient followup for long-term management of alcoholic liver cirrhosis. Perico Duenas MD SA/GULSHAN /[id number]
--- NOTE | 2020-03-18 00:41 | Progress Note ---
DATE: 03/17/2020 Medicine Progress Note SUBJECTIVE: The patient is actually much more awake and alert on examination. This is the best day I have seen here. She is working with physical therapy when I discussed this case with the nursing staff. No overnight events. PHYSICAL EXAMINATION: VITAL SIGNS: Temperature was 98.6, pulse was 72, respiratory rate 18, blood pressure was 108/53, O2 sats was 98% on room air. GENERAL: Not in acute distress. Alert and oriented x3. Cooperative on examination. HEENT: Head is normocephalic and atraumatic. Eyes; pupils are reactive to light bilaterally. Extraocular movements are intact bilaterally. Throat, no evidence of any erythema or exudates in the posterior pharynx. Has poor dentition. NECK: Supple. Good range of motion. PULMONARY: Clear to auscultation bilaterally. No wheezing, rales, or rhonchi. No crackles appreciated. CARDIOVASCULAR: Positive S1, S2. No murmurs, rubs, or gallops. ABDOMEN: Soft, nondistended, and nontender to palpation. Bowel sounds present. MUSCULOSKELETAL: Strength is 5/5 throughout. No evidence of any muscle deficits on examination. No weakness appreciated. NEUROLOGICAL: Cranial nerves II through XII grossly intact. No evidence of any neurological deficits on exam. SKIN: Intact. Warm to touch. Good cap refill. PSYCHIATRIC: Normal affect and mood. EXTREMITIES: No edema. Good range of motion throughout. LABORATORY FINDINGS: Show white count 4, hemoglobin 9.2, hematocrit 27, and platelets of 50. Coagulation; PT is 25, INR 2.19. Chemistry; sodium 141, potassium 4.1, chloride is 108, bicarb 26, anion gap of 11, BUN is 14 and creatinine is 1.38, glucose was 62 earlier this morning, but much improved now. Calcium is 8. Ammonia level was 65 downtrending. Urinalysis showed Klebsiella ESBL pneumoniae. Blood cultures x2, no growth to date. IMAGING STUDIES: None. IMPRESSION: 1. Hepatic encephalopathy-improved. 2. Anemia with negative stool occult with stable hemoglobin level. 3. Chronic thrombocytopenia. 4. Chronic coagulopathy. 5. Electrolyte abnormalities. 6. History of seizures. 7. Extended-spectrum beta-lactamases urinary tract infection. 8. Liver cirrhosis with coagulopathy and thrombocytopenia. PLAN: At this time, the patient's encephalopathy has improved tremendously. She is alert, awake, and she is oriented on exam. Continue with rifaximin as well as oral lactulose. As for her platelets, it has improved tremendously. She did have a slight elevation of D-dimer, but her INR is 2.1 anyway. I will have to go ahead and get a V/Q scan for further evaluation and management. As for her ESBL UTI, I did consult with ID and per his note, he recommends three days of IV antibiotic therapy with Merrem. Antibiotics have been changed. We will get repeat labs, CBC, chemistry, ammonia level in the morning. Follow with Hematology recommendations. No anticoagulation due to INR of 2.1. Continue with same plan of care and monitor very closely. MD MURALI aShni/GULSHAN /[id number]
[2020-03-18] MEDS: MEROPENEM 500MG/ NS 50ML 50 ML IV SCH ×5 (01:35→23:19)
--- NOTE | 2020-03-18 01:50 | NUR ---
IV TO L HAND INFILTRATED. D/C IV CATHETER TIP INTACT.[employer] DRESSING APPLIED.
--- NOTE | 2020-03-18 05:24 | NUR ---
DAILY CHG BATH GIVEN
[2020-03-18 06:14] LABS: INR 2.06; PROTHROMBIN TIME 24.5 seconds (11.9-14.5)
--- NOTE | 2020-03-18 07:10 | NUR ---
REPORT GIVEN TO DAYSHIFT NURSE. RESTING IN BED. NO SIGNS IV INFILTRATION. BED LOCKED AND IN LOW POSITION. CALL LIGHT WITHIN REACH. BED ALARM ACTIVATED.
--- NOTE | 2020-03-18 07:11 | NUR ---
WALKING ROUNDS COMPLETED WITH PM NURSE. RECEIVED CHANGE OF SHIFT REPORT. PT IN STABLE CONDITION.
[2020-03-18] MEDS: PANTOPRAZOLE SOD 40 MG TABEC PO SCH (07:30)
--- NOTE | 2020-03-18 08:45 | NUR ---
pt being noncooperative; refusing all medicine this morning. will inform MD and continue to monitor.
[2020-03-18] MEDS: SERTRALINE HCL 50 MG TAB PO SCH (09:00)
[2020-03-18] MEDS: MIDODRINE HCL 5 MG TABLET PO SCH ×3 (09:00→21:06)
[2020-03-18] MEDS: FOLIC ACID 1 MG TAB PO SCH (09:00)
[2020-03-18] MEDS: LEVETIRACETAM 500 MG TAB PO SCH ×2 (09:00→17:00)
[2020-03-18] MEDS: LACTULOSE SYRUP 20 GM/30 ML UDC PO SCH ×3 (09:00→21:06)
[2020-03-18] MEDS: RIFAXIMIN 550 MG TABLET PO SCH (09:00)
[2020-03-18] MEDS: THIAMINE HCL 100 MG TAB PO SCH (09:00)
--- NOTE | 2020-03-18 12:23 | NUR ---
lining vamper visited the pt and initiated relationship of pastoral support, lining vamper offered hope and prayer support . pt appeared more peaceful chaplain [place]
--- NOTE | 2020-03-18 13:13 | NUR ---
Dr. Knight at bedside; informed him pt did not take Lactulose this morning. will attempt to give pt Lactulose again this afternoon. Dr. Knight states the plan at this time is to discharge pt after she has had 3 days of IV Merrem and has had a BM. will continue to monitor.
--- NOTE | 2020-03-18 13:23 | NUR ---
Dr. Knight states give pt her missed morning dose with this afternoon's dose of Lactulose.
--- NOTE | 2020-03-18 17:30 | Diagnostic Imaging Report ---
Perfusion Lung Scan NOTE: Lung ventilation studies with xenon are not being performed per the recommendation of the Society of Nuclear Medicine and Molecular Imaging. It is not possible to be certain that the ventilation system is adequately disinfected. Ventilation studies with Tc-99m DTPA particles is contraindicated because the delivery by nebulization generates too many water droplets from the patient's airway. Clinical Information: Altered mental status; elevated D-dimer. Comparison: Chest radiograph 03/15/2020 Discussion: Ventilation images were not obtained. See note above. Perfusion images of the lungs were obtained in multiple projections following intravenous administration of approximately 6 mCi of Tc-99m MAA. Distribution of tracer is irregular throughout the lungs. There are no segmental perfusion defects of any size. The cardiomediastinal silhouette is borderline enlarged. Impression: 1. Scan findings represent a VERY LOW probability for acute pulmonary embolic disease based on the perfusion-only PIOPED II criteria. A concurrent ventilation study would not alter the assigned probability. 2. Scan findings are compatible with diffuse parenchymal and/or obstructive lung disease. 3. Borderline enlarged cardiac silhouette. Signed by: Dr. Rosina Nassar M.D. on 03/18/2020 5:27 PM
[2020-03-18] MEDS ORDERED: SODIUM CHLORIDE 0.9% 250ML 250 ML ONE (18:44)
[2020-03-19] VITALS (7 sets, daily range): BP systolic 109–129; BP diastolic 56–76
--- NOTE | 2020-03-19 02:46 | Progress Note ---
DATE: Medicine Progress Note SUBJECTIVE: The patient seems to be a bit confused today on examination. She continues to refuse the lactulose. I have discussed with her the importance of taking the lactulose and to continue to stop refusing it. She has a history of refusing lactulose leading to hepatic encephalopathy. PHYSICAL EXAMINATION: VITAL SIGNS: Temperature is 97.9, pulse 86, respiratory rate is 18, blood pressure is 125/70, pulse ox 96% on room air. GENERAL: She is a bit confused today, not lethargic. CARDIOVASCULAR: Positive S1 and S2. No murmurs, rubs, or gallops appreciated. PULMONARY: Clear to auscultation bilaterally. No wheezing, rales, or rhonchi. ABDOMEN: Soft, nondistended, and nontender to palpation. Bowel sounds present. MUSCULOSKELETAL: Unable to assess at this time. SKIN: Intact. Warm to touch. Good cap refill. EXTREMITIES: No edema. Good range of motion throughout. LABORATORY FINDINGS: Show white count 4, hemoglobin 9.2, hematocrit 27.2, platelets of 50. Coagulation; PT is 24, INR 2.06. Chemistry reviewed, stable. Creatinine down trending. Urinalysis noted. Stool occult negative. Coronavirus is negative. Urine culture shows ESBL Klebsiella in the urine. IMAGING STUDIES: V/Q scan shows impression very low probability for acute pulmonary embolic disease based on region and the scan is compatible with diffuse parenchymal and/or obstructive lung disease. Borderline enlarged cardiac silhouette. IMPRESSION: 1. Hepatic encephalopathy. 2. Anemia with negative stool occult with stable hemoglobin level. 3. Chronic thrombocytopenia. 4. Chronic coagulopathy. 5. Electrolyte abnormalities. 6. History of seizures. 7. Extended spectrum beta-lactamases urinary tract infection. 8. Liver cirrhosis with coagulopathy and thrombocytopenia. PLAN: I spoke with ID. The patient needs one more additional day of IV antibiotics and she can eventually be discharged. Today, she seems to be a bit confused compared to yesterday. We will go ahead and continue with lactulose and rifaximin. The patient refuses her lactulose, which I discussed this with her at bedside, the importance of continuing with her lactulose to help her cognition to be much improved. V/Q scan was found to be negative. ID is following. Hematology is following for the rest of the CBC abnormalities. Hopefully, plan to discharge home tomorrow, if stable. MD MURALI Sahni/GULSHAN /[id number]
[2020-03-19] MEDS: MEROPENEM 500MG/ NS 50ML 50 ML IV SCH ×4 (05:33→18:58)
--- NOTE | 2020-03-19 05:48 | NUR ---
DAILY CHG BATH PROVIDED
--- NOTE | 2020-03-19 06:00 | NUR ---
FOUND PATIENT WITH L EJ DISCONNECTED CATHETER TIP INTACT. APPLIED CDI DRESSING. NOTIFIED CHARGE NURSE.
[2020-03-19 06:04] LABS: BASOPHILS % 0.9 % (0.0-1.0); EOSINOPHILS # (AUTO) 0.3 (0.0-0.4); EOSINOPHILS % 6.7 % (0.0-6.0); HEMATOCRIT 30.3 % (34.2-44.1); HEMOGLOBIN 9.6 g/dL (12.0-16.0); LYMPHOCYTES # (AUTO) 1.5 (1.0-3.2); LYMPHOCYTES % 32.4 % (18.0-39.1); MEAN CORPUSCULAR HEMOGLOBIN 30.2 pg (28-32); MEAN CORPUSCULAR HGB CONC 31.7 g/dL (31-35); MEAN CORPUSCULAR VOLUME 95.3 fL (81-99); MONOCYTES # (AUTO) 0.5 (0.2-0.8); MONOCYTES % 10.2 % (4.4-11.3); NEUTROPHILS # (AUTO) 2.3 (2.1-6.9); NEUTROPHILS % 49.6 % (38.7-80.0); RED BLOOD COUNT 3.18 x10e6/uL (3.6-5.1); RED CELL DISTRIBUTION WIDTH 16.8 % (11.7-14.4)
--- NOTE | 2020-03-19 06:14 | NUR ---
SPOKE TO MD PUENTES REGARDING LEFT EJ. NO NEW ORDERS AT THIS TIME.
[2020-03-19 06:24] LABS: ALBUMIN 2.9 g/dL (3.5-5.0); ALBUMIN/GLOBULIN RATIO 0.9 (0.8-2.0); ANION GAP 9.4 mmol/L (8-16); CALCIUM 8.9 mg/dL (8.4-10.2); CREATININE, SERUM 1.11 mg/dL (0.57-1.11); POTASSIUM 4.4 mmol/L (3.5-5.1)
[2020-03-19 06:25] LABS: PLATELET COUNT 43 x10e3/uL (140-360)
--- NOTE | 2020-03-19 06:35 | NUR ---
SPOKE TO MD PUENTES REGARDING PLATELET LEVEL 43.
--- NOTE | 2020-03-19 07:04 | NUR ---
REPORT GIVEN TO DAYSHIFT NURSE. ALERT AND RESTING IN BED. GRANDDAUGHTER AT BEDSIDE. BED ALARM ACTIVATED. BED LOCKED AND IN LOW POSITION. CALL LIGHT WITHIN REACH.
--- NOTE | 2020-03-19 07:05 | NUR ---
BEDSIDE SHIFT REPORT RECEIVED FROM PM NURSE. PT IN STABLE CONDITION.
[2020-03-19] MEDS: LACTULOSE SYRUP 20 GM/30 ML UDC PO SCH ×2 (10:00→16:47)
[2020-03-19] MEDS: LEVETIRACETAM 500 MG TAB PO SCH ×2 (10:00→16:47)
[2020-03-19] MEDS: FOLIC ACID 1 MG TAB PO SCH (10:00)
[2020-03-19] MEDS: PANTOPRAZOLE SOD 40 MG TABEC PO SCH (10:00)
[2020-03-19] MEDS: MIDODRINE HCL 5 MG TABLET PO SCH ×3 (10:00→21:33)
[2020-03-19] MEDS: SERTRALINE HCL 50 MG TAB PO SCH (10:00)
[2020-03-19] MEDS: RIFAXIMIN 550 MG TABLET PO SCH (10:00)
[2020-03-19] MEDS: THIAMINE HCL 100 MG TAB PO SCH (10:00)
--- NOTE | 2020-03-19 13:17 | Progress Note ---
DATE: 03/19/2020 SUBJECTIVE: The patient is feeling much better today. She is alert, awake, oriented. Some family member is visiting at the bedside. Tolerating oral diet. Having regular bowel movements. REVIEW OF SYSTEMS: GENERAL: No fever or chills. Admits to some weakness. CVS: No chest pain or palpitation. RESPIRATORY: No cough or expectoration. MEDICATIONS: Reviewed the MAR. PHYSICAL EXAMINATION: VITAL SIGNS: Temperature 98.8, pulse 70, respirations 20, blood pressure 109/56, oxygen saturation 100% on room air. GENERAL: Not in any apparent distress. Alert, awake, and oriented x3. Oral mucosa is moist. HEENT: Icteric sclerae. ABDOMEN: Soft, nondistended, nontender. No palpable mass or hernia. Positive bowel sounds. Shifting dullness digitally not appreciable. LABORATORY DATA: WBC 4.63, hemoglobin 9.6 (it was 9.2 on 03/17/2020), hematocrit 30.3, and platelet count 43. Sodium 141, potassium 4.4, chloride 113, bicarb 23, BUN 13, creatinine 1.11, and liver enzymes showed a total bilirubin 4.8, AST 74, ALT 31, alkaline phosphatase 137. Viral hepatitis serologies pending. IMPRESSION: 1. Decompensated alcoholic liver cirrhosis with underlying portal hypertension. 2. History of hepatic encephalopathy in the past. 3. Anxiety, depression. PLAN: Continue low-salt diet. Titrated dose of lactulose to ensure one or two bowel movement. Hold the lactulose if there is any diarrhea. Continue Xifaxan. Continue rest of the medical care as per primary team. The patient can be discharged home from GI standpoint. She is to follow up with me very closely, I told her to follow up with me in my office within one week after discharge. She needs a stringent outpatient followup for long-term management of alcoholic liver cirrhosis. Perico Duenas MD SA/GULSHAN /[id number]
[2020-03-20] VITALS: BP 118/64
--- NOTE | 2020-03-20 02:01 | Progress Note ---
DATE: 03/19/2020 Medicine Progress Note SUBJECTIVE: The patient is doing much better today. She is alert, awake, and oriented on examination. Family was contemplating about discharge today or not. OBJECTIVE: VITAL SIGNS: Temperature is 98.2, pulse 64, respiratory rate is 18, blood pressure is 117/76, and pulse ox 100% on room air. GENERAL: Not in acute distress. Alert and oriented x3. Cooperative on examination. HEENT: Head normocephalic and atraumatic. Eyes; pupils are equal, round, and reactive to light bilaterally. Extraocular movements are intact bilaterally. Throat, no evidence of any erythema or exudates in the posterior pharynx. Has poor dentition. NECK: Supple. Good range of motion. PULMONARY: Clear to auscultation bilaterally. No wheezing, rales, or rhonchi. No crackles appreciated. CARDIOVASCULAR: Positive S1 and S2. No murmurs, rubs, or gallops. GI: Abdomen is soft, nondistended, and nontender to palpation. Bowel sounds present. MUSCULOSKELETAL: Strength is 5/5 throughout. No evidence of any muscle deficits examination. No weakness appreciated. NEUROLOGIC: Cranial nerves 2 through 12 are grossly intact. No evidence of any neurological deficits on exam. SKIN: Intact warm to touch. Good capillary refill. PSYCHIATRIC: Normal affect and mood. EXTREMITIES: No edema. Good range of motion throughout. LABORATORY FINDINGS: White count 4.6, hemoglobin 9.6, hematocrit is 30, and platelets of 43. Chronic coagulation noted. Chemistry; sodium 141, potassium 4.4, chloride 113, bicarbonate 23, anion gap of 9.4, BUN 13, creatinine 1.1, and calcium is 8.9. LFTs; total bilirubin was 4.8, AST 74, ALT 31, and alkaline phosphatase is 137. Ammonia level shows elevated at 105, but that is within normal range at our facility. Microbiology noted. IMAGING STUDIES: V/Q scan shows very low probability for acute pulmonary embolism. IMPRESSION: 1. Hepatic encephalopathy. 2. Anemia with negative stool occult with stable hemoglobin level. 3. Chronic thrombocytopenia. 4. Chronic coagulopathy. 5. Electrolyte abnormalities. 6. History of seizures. 7. Extended spectrum beta-lactamase, urinary tract infection. 8. Liver cirrhosis with coagulopathy and thrombocytopenia. PLAN: GI recommendations noted. No further workup needed. Okay to be discharged to home. I spoke with ID. Today is the last day of IV antibiotics. I discussed with the family about being discharge today and wanted to see how she does overnight and then discharged tomorrow. Continue with aggressive lactulose and rifaximin. V/Q scan was found to be negative. Get morning labs. Monitor closely. MD MURALI Sahni/GULSHAN /[id number]
[2020-03-20 04:00] VITALS: BP 119/57
[2020-03-20] MEDS: MEROPENEM 500MG/ NS 50ML 50 ML IV SCH ×3 (06:07→11:13)
[2020-03-20 06:16] LABS: BASOPHILS % 0.7 % (0.0-1.0); EOSINOPHILS # (AUTO) 0.3 (0.0-0.4); EOSINOPHILS % 6.4 % (0.0-6.0); HEMATOCRIT 29.3 % (34.2-44.1); HEMOGLOBIN 9.1 g/dL (12.0-16.0); LYMPHOCYTES # (AUTO) 1.5 (1.0-3.2); LYMPHOCYTES % 35.6 % (18.0-39.1); MEAN CORPUSCULAR HGB CONC 31.1 g/dL (31-35); MEAN CORPUSCULAR VOLUME 96.7 fL (81-99); MONOCYTES # (AUTO) 0.4 (0.2-0.8); MONOCYTES % 9.5 % (4.4-11.3); NEUTROPHILS % 47.3 % (38.7-80.0); RED BLOOD COUNT 3.03 x10e6/uL (3.6-5.1); RED CELL DISTRIBUTION WIDTH 16.5 % (11.7-14.4)
[2020-03-20 06:35] LABS: PLATELET COUNT 40 x10e3/uL (140-360)
--- NOTE | 2020-03-20 06:37 | NUR ---
Lm for Dr. Aviles to call back regarding Platelet count of 40.
--- NOTE | 2020-03-20 06:45 | NUR ---
Spoke with DR. Aviles regarding Platelet count of 40. No new orders at this time, cont to monitor
--- NOTE | 2020-03-20 07:50 | NUR ---
PATIENT IN STABLE CONDITION WITH NO S/S OF RESPIRATORY DISTRESS. NO PAIN VOICED. TELE APPLIED. GRANDDAUGHTER AVAILABLE IN ROOM. BED ALARM APPLIED. CALL LIGHT IS WITHIN REACH, PATIENT INSTRUCTED TO CALL FOR ASSISTANCE NEEDED.
[2020-03-20] MEDS: LACTULOSE SYRUP 20 GM/30 ML UDC PO SCH ×2 (09:03→16:13)
[2020-03-20] MEDS: LEVETIRACETAM 500 MG TAB PO SCH ×2 (09:03→16:13)
[2020-03-20] MEDS: FOLIC ACID 1 MG TAB PO SCH (09:03)
[2020-03-20] MEDS: PANTOPRAZOLE SOD 40 MG TABEC PO SCH (09:03)
[2020-03-20] MEDS: RIFAXIMIN 550 MG TABLET PO SCH (09:04)
[2020-03-20] MEDS: MIDODRINE HCL 5 MG TABLET PO SCH ×2 (09:04→16:13)
[2020-03-20] MEDS: SERTRALINE HCL 50 MG TAB PO SCH (09:04)
[2020-03-20] MEDS: THIAMINE HCL 100 MG TAB PO SCH (09:04)
[2020-03-20 09:33] VITALS: BP 123/76
[2020-03-20 11:27] VITALS: BP 117/58
[2020-03-20] MEDS ORDERED: ONDANSETRON HCL 4 MG ORAL DISINTEGRATING TAB PO PRN (12:45)
--- NOTE | 2020-03-20 13:58 | NUR ---
Spoke with pt's granddaughter Aletha at bedside. States pt lives at home with , multiple grandchildren, and her son. Pt has a walker and wheelchair at home. Has help at all times. Currently on service with [employer] and family would like to resume services with them. Choice letter signed. Copy to pt's granddaughter. Signed choice letter placed in front of chart. KAMARI called and spoke to Rosmery at [employer] and verified that pt currently on service with them. Pt currently receiving SN/PT/OT. Informed Rosmery that plan is for pt to discharge today. Order and clinicals faxed to [phone] / .
[2020-03-20 15:07] VITALS: BP 114/62
--- NOTE | 2020-03-20 17:24 | NUR ---
HEMATOLOGY/ONCOLOGY PROGRESS NOTE Referring Physician: Dr. Alisson Knight Consulting Physician: Dr. Hallie Aviles Reason for Consultation: Thrombocytopenia, Anemia History of Present Illness: Patient resting comfortably, no new complaints. Granddaughter at bedside. DC planning in progress. Review of Systems: 14 point ROS negative unless otherwise stated in the HPI. Physical Exam: Vitals: Reviewed per EMR. Afebrile. General: NAD HEENT: NC, AT; EOMI Neck: Supple Cardiovascular: RRR Pulmonary: Decreased breath sounds bilaterally Abdomen: Soft, NTND, BS x 4 Musculoskeletal: Moves all Extremities: No cyanosis, no edema Neurologic: Awake, alert Psychiatric: Cooperative Laboratory/Radiology Data: Reviewed per EMR. Assessment/Plan: Ms. Clements is a 64-year-old female, with past medical history of seizures, chronic hypotension, liver cirrhosis, hepatic encephalopathy, anemia, and morbid obesity who was admitted through the ED for hepatic encephalopathy with confusion. Patient follows with Dr. Duenas (Gastroenter ologist) for cirrhosis outpatient. Per family, patient became violent and aggressive. She has now been started on IV antibiotics for possible UTI, rifaximin, lactulose, thiamine, folic acid, and has received 2 unit PRBC, 1 unit FFP, and Vit K x 1 secondary to anemia and coagulopathy. Hematology/Oncology has been consulted to assist with management. 1. Anemia: Appears acute on chronic secondary to underlying alcoholic liver disease. S/p 2 unit PRBC transfused with improvement in hemoglobin. No signs of active bleeding and FOBT negative. Hold off on IV iron infusions as patient ferritin is elevated likely as APR. Elevated %sat, low transferrin, and low TIBC likely related to chronic liver disease. Hemoglobin stable in the 9 range. Monitor closely for now. 2. Thrombocytopenia: Appears secondary to liver cirrhosis. Acute hepatitis panel pending. Platelet count low but stable, in noncritical range. Transfuse if plt < 20,000. No signs of bleeding. Monitor closely for now. 3. Coagulopathy: Multifactorial. Likely related to liver cirrhosis in combination with mild DIC secondary to UTI. S/p Vit K x 2 and 1 unit FFP with improvement in INR, low fibrinogen noted as well. VQ scan obtained due to elevated D-dimer with very low probability of PE. Monitor closely for now. 4. Leukopenia: Probably related to cirrhosis with splenomegaly revealed on CT abd/pelvis on 03/08/2020. will consider growth factor support if needed. WBC stable in 4 range. Monitor for now. 5. UTI: Afebrile, leukopenic as per #4. Urine culture with klebsiella pneumoniae- ESBL, blood culture NGTD. Continue on IV antibiotics. ID on board. 6. Hepatic encephalopathy: On Rifaximin, thiamine, and lactulose. Ammonia level stable. Managed per primary with GI on board. 7. Liver cirrhosis: Managed per GI on board. 8. DVT proph: SCDs for now given thrombocytopenia and history of chronic subdural bleed. 9. Dispo: Patient clear for discharge from HemOnc standpoint. Above plan discussed with Dr. Aviles. Thank you for the consult. I will be available. Please call with questions.
--- NOTE | 2020-03-20 18:42 | NUR ---
PT OFF THE UNIT AT 1825 VIA WHEELCHAIR. PT ESCORTED TO FRONT LOBBY BY PCT. PT LEFT VIA CAR WITH GRANDDAUGHTER R[place]. PT ALERT AND AWAKE AT TIME OF DEPARTURE WITH NO S/S OF RESPIRATORY DISTRESS. NO PAIN VOICED. IV REMOVED AT 1750. NO BLEEDING NOTED AND TIP INTACT. DISCHARGE TEACHING AND INSTRUCTIONS GIVEN TO PT.
--- NOTE | 2020-03-21 00:47 | Discharge Summary ---
FINAL DISCHARGE DIAGNOSES: 1. Hepatic encephalopathy due to noncompliance with her lactulose. 2. Anemia with negative occult stool x2 with stable hemoglobin levels. 3. Chronic thrombocytopenia. 4. Chronic coagulopathy secondary to liver cirrhosis. 5. Electrolyte abnormalities. 6. History of seizures. 7. Extended-spectrum beta-lactamases urinary tract infection-completed treatment here in the hospital. 8. Liver cirrhosis secondary to alcohol abuse with coagulopathy and thrombocytopenia. CONSULTANTS: GI and ID. VITAL SIGNS: Temperature is 97.6, pulse is 60, respiratory rate is 18, blood pressure 114/62, pulse ox 96% on room air. LABORATORY FINDINGS: Show white count 4.2, hemoglobin 9.1, hematocrit is 29, and platelets of 40, chronic. Coagulation; PT 24, INR 2. Fibrinogen 103. D-dimer is 1.5. Chemistry; sodium 141, potassium 4.4, chloride 113, bicarb 23, anion gap of 9.4, BUN is 13, creatinine is 1.1, glucose is 107, calcium is 8.9. Iron saturation reported to be 110, but her TIBC level is low. LFTs; total bilirubin is 4, AST 63, ALT 29, alkaline phosphatase 113. Troponins were all negative. CK was 42. Albumin 2.7. Lipase is 9. Urinalysis noted. Stool occult x2 negative. Coronavirus was negative. Hepatitis panel was negative. MICROBIOLOGY: Blood cultures, no growth to date. Urine culture shows Klebsiella pneumoniae, ESBL, treated for 4 days of IV antibiotic therapy, which completed and cleared for discharge by ID. No further treatment needed. DIAGNOSTIC STUDIES: CT of the brain shows no acute intracranial abnormality. 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 These are all chronic in nature. There is a focal chronic nonspecific left parietal insult. Chest x-ray, cardiomegaly with mild interstitial pulmonary edema. V/Q scan shows a very low probability for acute pulmonary embolic disease. There is evidence of compatible with diffuse parenchymal and/or obstructive lung disease. HOSPITAL COURSE: A 64-year-old female, morbidly obese with known history of alcoholic liver cirrhosis, comes in with underlying encephalopathy. CT brain shows no acute findings. The patient was found to have elevated ammonia level. The patient is very noncompliant with her lactulose at home. While here, the patient was given lactulose with several bowel movements with much improved encephalopathy. The patient was back to baseline. GI was consulted. The patient had also underlying anemia, but her hemoglobin was stable. She had negative stool occult x2. She also has chronic thrombocytopenia, chronic coagulopathy secondary to alcoholic liver cirrhosis. She was doing well with no complaints. She had blood cultures x2, which were negative. Urine culture showed ESBL Klebsiella pneumoniae, prompting ID consultation. The patient had approximately 4 days of IV Merrem, which Infectious Disease recommended 3 days and no further treatment upon discharge. In fact, the patient was back to baseline prior to being discharged to home. GI and ID cleared the patient for discharge to home. The patient was back to normal baseline. V/Q scan was found to be negative for any pulmonary embolism. On the day of discharge, vital signs were stable, labs reviewed and stable. The patient was seen evaluated and examined thoroughly on the day of discharge with no other complaints. The patient verbalized understanding and agrees to plan of care to follow up accordingly as an outpatient with primary care physician in 1 week and GI specialist in 2 weeks' time. MEDICATIONS: See med reconciliation form. DISPOSITION: Home. CONDITION: Stable. DIET: Heart healthy. In the event of worsening symptoms, the patient was advised come back to the ED for further evaluation. Discharge summary took greater than 35 minutes. I spoke with the patient prior to being discharged. They were okay. The patient was back to normal baseline according to the family and she was cleared for discharge by all consultants. Discussed plan of care with nursing staff and family. MD MURALI Sahni/GULSHAN /[id number]
--- NOTE | 2020-03-24 08:11 | Progress Note ---
DATE: 03/19/2020 Psychiatric Progress Note SUBJECTIVE: The patient evaluated and events noted. The patient is in the room. She is doing better. Daughter is in the room. The patient is alert, awake, and oriented to situation. She denies any anxiety or depression. She is not confused or agitated. She denies any hallucination. Daughter states that the patient is back to baseline. No side effects seen or reported. ASSESSMENT: 1. Unspecified psychosis. 2. Adjustment disorder. PLAN: 1. Continue with p.r.n. medication. 2. Supportive therapy. 3. Continue with other medications. Dictated by Janny Bradley PA-C MD KEIKO Menendez/GULSHAN /[id number]
== END 2020-03-20 18:25 | disposition home or self-care (01) | DRG 433 ==
LOC: ER 07:21 → ERHOLD 11:08 → MED/SURG2 13:27
PROVIDERS: ADMIT Internal Medicine; ATTEND Internal Medicine
DX: K70.30 Alcoholic cirrhosis of liver without ascites (principal); K76.6 Portal hypertension; N39.0 Urinary tract infection, site not specified; D68.4 Acquired coagulation factor deficiency; Z16.12 Extended spectrum beta lactamase (ESBL) resistance; K72.90 Hepatic failure, unspecified without coma; D69.6 Thrombocytopenia, unspecified; D64.9 Anemia, unspecified; F10.10 Alcohol abuse, uncomplicated; E87.8 Other disorders of electrolyte and fluid balance, not elsewhere classified; Z91.19 Patient's noncompliance with other medical treatment and regimen; Z11.59 Encounter for screening for other viral diseases; B96.1 Klebsiella pneumoniae [K. pneumoniae] as the cause of diseases classified elsewhere
CPT/HCPCS: 36415; 70450; 71045; 78580; 80048; 80053; 81001; 82140; 82150; 82270; 82550; 82553; 82728; 83540; 83605; 83690; 83735; 83880; 84466; 84484; 85025; 85379; 85384; 85610; 85730; 86850; 86900; 86920; 87040; 87086; 87186; 93005; 96360; 97139; 99284; A9540; J1940; J2060; J3411; J3430; J3475; J7030; J7050; P9016; P9017; U0002

== ENCOUNTER 2020-05-14 13:30 | Emergency (ER) | payer BC, OTHER ==
[~2020-05-14] VITALS: Ht 152.4 cm; Wt 85.7 kg
--- OUTSIDE RECORDS SUMMARY | 2020-05-14 14:01 | XMS REPORT | Continuity of Care Document ---
Author Author [employer] Address Unknown Phone Unavailable Care Team Providers Care Line Controller Name Role Phone [facility] Unavailable Un available Problems Problem Status Onset Date Classification Date Reported Comments Source AMS Active 0 02/15/2020 [facility] ALTERED MENTAL STATUS, ACUTE HEPATIC ENC Active 02/15/2020 [facility] Encounter for screening mammogram for ma lignant neoplasm of breast 11/29/2017 02/23/2018 [facility] ROUTINE SCREENING LAST MMG W/ Active 11/16/2017 [facility] DX: I82.401=ACUTE EMBOLISM AND THROMBOSI Active 11/16/2017 [facility] Z12.11 Active 10/11/2016 [facility] UNK Active 0 10/11/2016 [facility] ALTERED MENTAL STATUS Active 09/18/2016 [facility] Discharge Diagnosis: Palpitations 04/29/2016 05/02/2016 [facility] RAPID HEARTRATE Active 04/28/2016 [facility] LARGE LEFT CAVERNOUS ANEURYSM Active 09/16/2011 [facility] Anxiety (finding) Active Problem 02/28/2020 [facility] Cerebrovascular accident (disorder) Active Problem [facility] Cirrhosis of liver (disorder) Active Problem [facility] History of cholecystectomy (situation) Active Problem [facility] Hypertensive disorder, systemic arterial (disorder) Active Problem 02/28/2020 [facility] Seizure (finding) Active Problem 02/28/2020 [facility] History of cholecystectomy Act aristeo Problem 07/2012 [facility] HTN - Hypertension Active Problem 03/25/2012 [facility] NONRUPT CEREBRAL ANEURYM Active [facility] ALTERED MENTAL STATUS, UNSPECIFIED Active [facility] ACUTE AND SUBACUTE HEPATIC FAILURE WITHO Active [facility] Medications Medication Details Route Status Patient Instructions Ordering Provider Order Date Source Levetiracetam Notes: (Same as: Keppra) No Longer Active 02/27/2020 [facility] pantoprazole 40 MG Enteric Coated Tablet [Protonix] 40 mg = 1 tab, PO, Daily, # 30 tab, 0 Refill(s), Pharmacy: [facility] #[id number], 152.4, cm, 02/15/20 22:51:00 CDT, Height, 59.091, kg, 02/15/20 22:51:00 CDT, Weight Active 02/26/2020 [facility] thiamine 100 mg oral tablet 10 0 mg = 1 tab, PO, Daily, X 30 day, # 30 tab, 0 Refill(s), Pharmacy: [facility] #[id number], 152.4, cm, 02/15/20 22:51:00 CDT, Height, 59.091, kg, 02/15/20 22:51:00 CDT, Weight Active 02/26/2020 [facility] midodrine 5 mg oral tablet 10 mg = 2 tab, PO, TID, # 180 tab, 0 Refill(s), Pharmacy: [facility] #[id number], 152.4, cm, 02/15/20 22:51:00 CDT, Height, 59.091, kg, 02/15/20 22:51:00 CDT, Weight Active 02/26/2020 [facility] Potassium Chloride Notes: ([facility] e as: K-Dur 20) "Do Not Crush" Give with food and full glass of water For patients unable to swallow tablet, dissolve in one half glass of water. Allow about 2 minutes for the tab lets to disintegrate. Stir before giving to prepare slurry and administer. Please exclude Patients with feeding tube less than 14 Lao (Dobhoff, J-tube etc) and pediatric and patients. No Longer Active 02/26/2020 [facility] potassium phosphate-sodium phosphate 250 mg-280 mg-160 mg oral powder for reconstitution Notes: (Same as: Phos-NaK) Each 1.5 gm pkt has 250mg phosphorous. Mix w/2.5oz water and stir. No Longer Active 02/26/2020 [facility] potassium phosphate Notes: ([facility] as: K Phosphate.) Do not infuse phosphorous concurrently in the same line as TPN or IVF that contains calcium. For double lumen central lines, phosphorous may be infused in a separate lumen from TPN. 1 mMol phoshate has 1.47 mEq potassium Infuse over 4 hours No Longer Active 02/26/2020 [facility] sodium phosphate Notes: Infuse over 4 hour. Do not infuse phosphorous concurrently in the same line as TPN or IVF that contains calcium. For double lumen central lines, phosphorous may be infused in a separate lumen from TPN. No Longer Active 02/26/2020 [facility] Magnesium Sulfate Notes: WASTE : F/P - Sink; E - Municipal Trash Bin No Longer Active 02/26/2020 [facility] Magnesium Oxide Notes: (Same a s: Mag-Ox 400) Magnesium oxide [id number] elemental magnesium Dose=____mg magnesium oxide (___mg elemental magnesium) No Longer Active 02/26/2020 [facility] Calcium Gluconate Notes: WASTE : F/P - Sink; E - Municipal Trash Bin No Longer Active 02/26/2020 [facility] Potassium Chloride Notes: ([facility] e as: KCL) Infuse no faster than 10 mEq/hr if given peripherally. No Longer Active 02/25/2020 [facility] sodium phosphate Notes: Infuse over 4 hour. Do not infuse phosphorous concurrently in the same line as TPN or IVF that contains calcium. For double lumen central lines, phosphorous may be infused in a separate lumen from TPN. No Longer Active 02/25/2020 [facility] potassium phosphate Notes: ([facility] as: K Phosphate.) Do not infuse phosphorous concurrently in the same line as TPN or IVF that contains calcium. For double lumen central lines, phosphorous may be infused in a separate lumen from TPN. 1 mMol phoshate has 1.47 mEq potassium Infuse over 4 hours No Longer Active 02/25/2020 [facility] potassium phosphate-sodium phosphate 250 mg-280 mg-160 mg oral powder for reconstitution Notes: (Same as: Phos-NaK) Each 1.5 gm pkt has 250mg phosphorous. Mix w/2.5oz water and stir. No Longer Active 02/25/2020 [facility] Magnesium Sulfate Notes: WASTE : F/P - Sink; E - Municipal Trash Bin No Longer Active 02/25/2020 [facility] Magnesium Oxide Notes: (Same a s: Mag-Ox 400) Magnesium oxide [id number] elemental magnesium Dose=____mg magnesium oxide (___mg elemental magnesium) No Longer Active 02/25/2020 [facility] Calcium Gluconate Notes: Conta ins: calcium gluconate 20mg/mL NaCl 0.67% 50mL WASTE: F/P - Sink; E - Municipal Trash Bin No Longer Active 02/25/2020 [facility] Calcium Carbonate 500 MG Chewable Tablet Notes: (Same As: Tumadithya) Calcium Carbonate 500 mg = 200 mg elemental calcium Dose = mg calcium carbonate ( mg elemental calcium) No Longer Active 02/25/2020 [facility] D5W 500 mL 500 mL, Rate: 100 m l/hr, Infuse over: 5 hr, Route: IV, Dosing Weight 59.091 kg, Total Volume: 500, Start date: 02/25/20 6:13:00 CDT, Duration: 30 day, Stop date: 03/26/20 6:12:00 CDT, 1.6, m2, 0 No Longer Active 02/25/2020 [facility] potassium phosphate Notes: (Sa me as: K Phosphate.) Do not infuse phosphorous concurrently in the same line as TPN or IVF that contains calcium. For double lumen central lines, phosphorous may be infused in a separate lumen from TPN. 1 mMol phoshate has 1.47 mEq potassium Infuse over 4 hours Inactive 02/25/2020 [facility] Magnesium Sulfate Notes: WASTE : F/P - Sink; E - Municipal Trash Bin Inactive 02/25/2020 [facility] potassium phosphate Notes: (Sa me as: K Phosphate.) Do not infuse phosphorous concurrently in the same line as TPN or IVF that contains calcium. For double lumen central lines, phosphorous may be infused in a separate lumen from TPN. 1 mMol phoshate has 1.47 mEq potassium Infuse over 4 hours Inactive 02/23/2020 [facility] Lactulose 667 MG/ML Oral Solution Notes: (Same as:Chronulac) No Longer Active 02/21/2020 [facility] Lactulose 667 MG/ML Oral Solution Notes: (Same as:Chronulac) Inactive 02/21/2020 [facility] Metronidazole Notes: (Same as: Flagyl) Avoid alcohol. No Longer Active 02/20/2020 [facility] Sodium Chloride 0.9% IV 250 mL + octreot david 1,250 microgram 250 mL, Rate: 10 ml/hr, Infuse over: 25 hr, Route: IV, Dosing Weight 59.091 kg, Total Volume: 250, Start date: 02/19/20 7:00:00 CDT, Duration: 30 day, Stop date: 03/20/20 6:59:00 CDT, 1.6, m2 Inactive 02/19/2020 [facility] octreotide 1,250 microgram + Sodium Chlo ride 0.9% IV 248.75 mL 248.75 mL, Rate: 10 ml/hr, Infuse over: 25 hr, Route: IV, Dosing Weight 59.091 kg, Total Volume: 250, Start date: 02/19/20 6:50:00 CDT, Duration: 30 day, Stop date: 03/20/20 6:49:00 CDT, 1.6, m2, 0 No Longer Active 02/19/2020 [facility] pantoprazole additive 80 mg + Sodium Chl oride 0.9% IV 100 mL Notes: For IV push reconstitute with 10 ml 0.9% sodium chloride and push over 2 minutes. (Same as: Protonix) No Longer Active 02/19/2020 [facility] Thiamine Notes: (Same As: Chloe min B1) No Longer Active 02/18/2020 [facility] Vitamin K 1 Notes: Same as: Aminata Chaney Me[place] Combine FILTERED phytonadione injection (total 50 mg/5 mL)with Simple Syrup (45mL) in natalee bottle. Shake well prior to dispensing. Expiration: 90 days at temp No Longer Active 02/18/2020 [facility] Plavix Notes: (Same As: Plavix) No Longer Active 02/18/2020 [facility] Folic Acid Notes: (Same as: Fo lvite) No Longer Active 02/18/2020 [facility] Vasopressin (ALF) Notes: (Same As: Pitressin, Vasostrict) No Longer Active 02/17/2020 [facility] albumin human 25% intravenous solution Notes: Lot #: Mfg: (Same as: Plasbumin-25) "blood product derivative" WASTE: F/P - Red; E -Red MEDICATION WASTE Product Size: 25 gm Product Wasted: ___ gm No Longer Active 02/17/2020 [facility] Lactulose 667 MG/ML Oral Solution Notes: (Same as:Chronulac) No Longer Active 02/17/2020 [facility] Rocephin + sterile water 10 mL Notes: (Same As: Rocephin). Use with 100 mL NS and infuse over 30 min MEDICATION WASTE Product Size: 1000 mg Product Wasted: ___ mg No Longer Active 02/17/2020 [facility] Lactulose 667 MG/ML Oral Solution Notes: (Same as:Chronulac) Inactive 02/17/2020 [facility] rifaximin Notes: Same as: Xifa jones No Longer Active 02/17/2020 [facility] XIFAXAN Notes: Same as: Xifaxan Inactive 02/16/2020 [facility] riFAXimin 550 mg oral tablet 5 50 mg = 1 tab, PO, BID Active 02/16/2020 [facility] pantoprazole 40 MG Enteric Coated Tablet [Protonix] 40 mg = 1 tab, PO, Daily No Longe r Active 02/16/2020 [facility] Furosemide 40 MG Oral Tablet 4 0 mg = 1 tab, PO, Daily No Longer Active 02/16/2020 [facility] Lactulose 667 MG/ML Oral Solution Notes: (Same as:Chronulac) Inactive 02/16/2020 [facility] Midodrine Notes: (Same as:Proa matine) No Longer Active 02/16/2020 [facility] NS 1,000 mL 1,000 mL, Rate: 50 ml/hr, Infuse over: 20 hr, Route: IV, Dosing Weight 59.091 kg, Total Volume: 1,000, Start date: 02/16/20 9:28:00 CDT, Duration: 30 day, Stop date: 03/17/20 9:28:00 CDT, 1.6, m2, 0 No Longer Active 02/16/2020 [facility] Keppra Notes: Same as Keppra Mix with 100 mL NS, LR or D5W MEDICATION WASTE Product Size: 500 mg Product Wasted: ___ mg No Longer Active 02/16/2020 [facility] Dextrose 50% Syringe (D50W) 12 .5 gm, 25 mL, Route: IVP, Drug Form: INJ, Dosing Weight 59.091, kg, PRN, PRN Blood Glucose Results, Start date: 02/16/20 6:04:00 CDT, Duration: 30 day, Stop date: 03/17/20 6:03:00 CDT, 0 No Longer Active 02/16/2020 [facility] Glucagon 1 mg, Route: IM, Drug form: PDR/INJ, PRN, Dosing Weight 59.091, kg, PRN Blood Glucose Results, Start date: 02/16/20 6:04:00 CDT, Duration: 30 day, Stop date: 03/17/20 6:03:00 CDT, 0 No Longer Active 02/16/2020 [facility] pantoprazole additive 80 mg + Sodium Chl oride 0.9% IV 100 mL Notes: For IV push reconstitute with 10 ml 0.9% sodium chloride and push over 2 minutes. (Same as: Protonix) No Longer Active 02/16/2020 [facility] Norepinephrine Notes: Same as: Levophed. Administer by either central venous catheter or peripherally-inserted central catheter (PICC) line. Concentration: 0.032 mg / mL No Longer Active 02/16/2020 [facility] Norepinephrine Notes: Same as: Levophed. Administer by either central venous catheter or peripherally-inserted central catheter (PICC) line. Concentration: 0.032 mg / mL Inactive 02/16/2020 [facility] Sodium Chloride 0.9% (Bolus) IV 1,000 mL, 1000 ml/hr, Infuse Over: 1 hr, Route: IV, 1,000, Drug form: INJ, ONCE, Priority: STAT, Dosing Weight 59.091 kg, Start date: 02/16/20 3:13:00 CDT, Stop date: 02/16/20 3:13:00 CDT, 0 Inactive 02/16/2020 [facility] Dextrose 50% Syringe (D50W) 12 .5 gm, 25 mL, Route: IVP, Drug Form: INJ, Dosing Weight 59.091, kg, PRN, PRN Blood Glucose Results, Start date: 02/16/20 2:35:00 CDT, Duration: 30 day, Stop date: 03/17/20 2:34:00 CDT, 0 Inactive 02/16/2020 [facility] Glucagon 1 mg, Route: IM, Drug form: PDR/INJ, PRN, Dosing Weight 59.091, kg, PRN Blood Glucose Results, Start date: 02/16/20 2:35:00 CDT, Duration: 30 day, Stop date: 03/17/20 2:34:00 CDT, 0 Inactive 02/16/2020 [facility] Ondansetron Notes: (Same as: Julian hutton) MEDICATION WASTE Product Size: 4 mg Product Wasted: ___ mg No Longer Active 02/16/2020 [facility] Melatonin Notes: (Same as: Rachael atonin) Inactive 02/16/2020 [facility] Acetaminophen Notes: Do not ex ceed 4 gm/day. (Same as: Tylenol) No Longer Active 02/16/2020 [facility] Lactated Ringers IV 1,000 mL 1 ,000 mL, Rate: 75 ml/hr, Infuse over: 13.3 hr, Route: IV, Dosing Weight 59.091 kg, Total Volume: 1,000, Start date: 02/16/20 2:35:00 CDT, Duration: 30 day, Stop date: 03/17/20 2:34:00 CDT, 1.6, m2, 0 Inactive 02/16/2020 [facility] Saline Flush 0.9% Notes: (Same as: BD Posiflush) No Longer Active 02/16/2020 [facility] Ceftriaxone Notes: (Same As: Esperanza cota). Use with 100 mL NS and infuse over 30 min MEDICATION WASTE Product Size: 1000 mg Product Wasted: ___ mg Inactive 02/16/2020 [facility] Hydralazine Notes: (Same as: A presoline) Push over 5 minutes Inactive 02/16/2020 [facility] Lactulose Notes: Lactulose 300 ml, Water for Irrigation 700ml - total volume = 1000ml Inactive 02/16/2020 [facility] Hydralazine 10 mg, Route: IVP, ONCE, Dosing Weight 59.091, kg, Priority: STAT, Start date: 02/16/20 1:12:00 CDT, Stop date: 02/16/20 1:12:00 CDT Inactive 02/16/2020 [facility] Saline Flush 0.9% Notes: (Same as: BD Posiflush) No Longer Active 02/16/2020 [facility] Sodium Chloride 0.154 MEQ/ML Injectable Solution 1,000 mL, Rate: 25 ml/hr, Infuse over: 40 hr, Route: IV, Dosing Weight 79.347 kg, Total Volume: 1,000, Start date: 10/19/16 8:55:00 [employer], Duration: 1 day, Stop date: 10/20/16 8:54:00 [employer] Inactive 10/19/2016 [facility] Lactulose 667 MG/ML Oral Solution [Generlac] 0 Refill(s) Active 10/18/2016 [facility] spironolactone 50 mg oral tablet 50 mg = 1 tab, PO, Daily, # 30 tab, 1 Refill(s) Active 10/18/2016 [facility] Streptococcus pneumoniae serotype 1 caps ular antigen diphtheria [id number] protein conjugate vaccine / Streptococcus pneumoniae serotype 14 capsular antigen diphtheria [id number] protein conjugate vaccine / Streptococcus pneumoniae serotype 18C capsular antigen d Notes: Lightly roll vial (DO NOT SHAKE) before administration. (Same as: Prevnar 13) Inactive 09/21/2016 [facility] ferrous sulfate 325 mg oral enteric coated tablet 325 mg = 1 tab, PO, Daily, # 30 tab, 0 Refill(s) Active 09/21/2016 [facility] pantoprazole 40 mg oral enteric coated tablet 40 mg = 1 tab, PO, Before Dinner, # 30 tab, 0 Refill(s) Active 09/21/2016 [facility] levofloxacin 250 mg oral tablet 500 mg = 2 tab, PO, [id number], X 5 day, # 10 tab, 0 Refill(s) Active 09/21/2016 [facility] Lactulose 667 MG/ML Oral Solution 10 gm = 15 mL, PO, BID, X 14 day, # 420 mL, 0 Refill(s) Active 09/21/2016 [facility] Levetiracetam 500 MG Oral Tablet [Keppra] 500 mg = 1 tab, PO, Q12H, # 60 tab, 0 Refill(s) Active 09/21/2016 [facility] Folic Acid 1 MG Oral Tablet 1 mg = 1 tab, PO, Daily, # 30 tab, 0 Refill(s) Active 09/21/2016 [facility] Sodium Chloride 0.154 MEQ/ML Injectable Solution 1,000 mL, Rate: 25 ml/hr, Infuse over: 40 hr, Route: IV, Dosing Weight 81.818 kg, Total Volume: 1,000, Start date: 09/21/16 7:47:00 [employer], Duration: 1 day, Stop date: 09/22/16 7:46:00 [employer] Inactive 09/21/2016 [facility] Levetiracetam 500 MG Oral Tablet [Keppra] Notes: (Same as:Ursulara) No Longer Active 09/21/2016 [facility] Lactulose 667 MG/ML Oral Solution Notes: (Same as:Chronulac) No Longer Active 09/20/2016 [facility] Levetiracetam Notes: Same as eppra Mix with 100 mL NS, LR or D5W MEDICATION WASTE Product Size: 500 mg Product Wasted: ___ mg Inactive 09/20/2016 [facility] Lisinopril Notes: (Same as: Pr inivil, Zestril) No Longer Active 09/20/2016 [facility] Folic Acid Notes: (Same as: Fo lvite) No Longer Active 09/20/2016 [facility] Protonix Notes: Tablet should not be chewed or crushed. (Same as: Protonix) No Longer Active 09/19/2016 [facility] Levaquin Notes: Do not give w/ antacids, dairy pdt & minerals Take 1 hr before or 2 hr after dairy pdt (Same as:Levaquin) No Longer Active 09/19/2016 [facility] Plavix Notes: (Same As: Plavix) No Longer Active 09/19/2016 [facility] Saline Flush 0.9% Notes: (Same as: BD Posiflush) No Longer Active 09/19/2016 [facility] Ondansetron Notes: (Same as: Julian hutton) MEDICATION WASTE Product Size: 4 mg Product Wasted: ___ mg No Longer Active 09/19/2016 [facility] Sodium Chloride 0.154 MEQ/ML Injectable Solution 1,000 mL, Rate: 75 ml/hr, Infuse over: 13.3 hr, Route: IV, Dosing Weight 81.818 kg, Total Volume: 1,000, Start date: 09/18/16 20:32:00 [employer], Duration: 30 day, Stop date: 10/18/16 20:31:00 [employer] No Longer Active 09/19/2016 [facility] clopidogrel 75 MG Oral Tablet [Plavix] 75 mg = 1 tab, PO, Daily, 0 Refill(s) Active 09/19/2016 [facility] lisinopril 5 mg oral tablet 5 mg = 1 tab, PO, Daily, 0 Refill(s) Active 09/19/2016 [facility] Sodium Chloride 0.154 MEQ/ML Injectable Solution 1,000 mL, Infuse Over: 1 hr, Route: IV, ONCE, Priority: STAT, Dosing Weight 81.818 kg, Start date: 09/18/16 17:53:00 [employer], Duration: 1 doses or times, Stop date: 09/18/16 17:53:00 [employer] Inactive 09/18/2016 [facility] Versed 5 mg, Route: IVP, ONCE, Dosing Weight 81.818, kg, Priority: STAT, Start date: 09/18/16 17:35:00 [employer], Stop date: 09/18/16 17:35:00 [employer] Inactive 09/18/2016 [facility] Sodium Chloride 0.154 MEQ/ML Injectable Solution 1,000 mL, 1,000 ml/hr, Infuse Over: 1 hr, Route: IV, ONCE, Priority: STAT, Dosing Weight 81.818 kg, Start date: 09/18/16 14:37:00 [employer], Duration: 1 doses or times, Stop date: 09/18/16 14:37:00 [employer] Inactive 09/18/2016 [facility] Sulfamethoxazole 800 MG / Trimethoprim 1 60 MG Oral Tablet [Bactrim] 1 tab, PO, BID, X 7 day, # 14 tab, 0 Ref ill(s) Active 04/29/2016 [facility] Alprazolam 0.5 MG Oral Tablet [Xanax] 0.5 mg = 1 tab, PO, Q8H, PRN Anxiety, X 7 day, # 21 tab, 0 Refill(s) Active 04/29/2016 [facility] Sodium Chloride 0.154 MEQ/ML Injectable Solution 1,000 mL, 2,000 ml/hr, Infuse Over: 30 minutes, Route: IV, 1,000, Drug form: INJ, ONCE, Priority: STAT, Dosing Weight 81.818 kg, Start date: 04/29/16 1:01:00 CDT, Duration: 1 doses or times, Stop date: 04/29/16 1:01:00 CDT Inactive 04/29/2016 [facility] Saline Flush 0.9% Notes: (Same as: BD Posiflush) No Longer Active 04/29/2016 [facility] heparin 5,000 unit, 1 mL, Rout e: SUB-Q, Drug form: INJ, Q12H, Start date: 03/23/12 16:00:00, Duration: 30 day, Stop date: 04/22/12 4:00:00 SUB-Q No Longer Active [place] 03/23/2012 [facility] aspirin 325 mg tablet 325 mg, 1 tab, Route: PO, Drug form: TAB, Daily, Start date: 03/23/12 9:00:00, Duration: 30 day, Stop date: 04/21/12 9:00:00 PO No Longer Active [place] 03/23/2012 [facility] nter Plavix 75 mg, 1 tab, Route: PO , Drug form: TAB, Daily, Start date: 03/23/12 9:00:00, Duration: 30 day, Stop date: 04/21/12 9:00:00 PO No Longer Active [place] 05/2012 [facility] dexamethasone 2 mg oral tablet See Instructions, [...] 2 days, then stop Active [place] 05/2012 [facility] Pepcid 20 mg oral tablet 20 mg , 1 tab, PO, BID, 24 tab, Substitution Allowed PO Active [place] 03/23/2012 [facility] Plavix 75 mg oral tablet 75 mg , 1 tab, PO, Daily, 30 tab, Substitution Allowed, TAB PO Active [facility] 03/23/2012 [facility] aspirin 325 mg tablet 325 mg, 1 tab, PO, Daily, 30 tab, Substitution Allowed, TAB PO Active [place] 03/23/2012 [facility] nter Vicodin ES 7.5/750 oral tablet 1-2 tab, PO, Q4-6H, PRN, 30 tab, Pain, Substitution Allowed, Soft Stop, TAB PO Active [place] 03/23/2012 [facility] dexamethasone 4 mg, 1 mL, Rout e: IV, Drug form: INJ, Q6H, Start date: 03/23/12 6:00:00, Duration: 30 day, Stop date: 04/22/12 0:00:00 IV No Longer Active Day 012 [facility] potassium phosphate + Sodium Chloride 0.9% IV 250 mL 18 mmol, 6 mL, Route: IV, ONCE, Start date: 03/23/12 3:30:00, Stop date: 03/23/12 3:30:00 IV No Longer Active [place] 03/23/2012 [facility] magnesium sulfate 2 gm, 50 mL, Route: IVPB, Drug form: INJ, ONCE, Start date: 03/23/12 3:00:00, Stop date: 03/23/12 3:00:00 IVPB No Longer Active Day 012 [facility] senna 8.6 mg oral tablet 8.6 m g, 1 tab, Route: PO, Drug Form: TAB, Bedtime, Start date: 03/22/12 21:00:00, Duration: 30 day, Stop date: 04/20/12 21:00:00 PO No Longer Active [place] 03/23/2012 [facility] nter hydrALAZINE 20 mg, 1 mL, Route : IV, Drug form: INJ, Q2H, PRN Elevated BP, Start date: 03/22/12 15:18:00, Duration: 30 day, Stop date: 04/21/12 15:17:00 IV No Longer Active [place] 03/22/2012 [facility] nter insulin regular human recombinant 100 un its/mL injectable solution 7 unit, 0.07 mL, Route: SUB-Q, Drug form : SOLN, PRN, PRN Abnormal Lab Result, Start date: 03/22/12 14:59:00, Duration: 30 day, Stop date: 04/21/12 14:58:00 SUB-Q No Longer Active [place] 03/22/2012 [facility] nter Dextrose 50% Syringe 6.25 gm, 12.5 mL, Route: IVP, Drug Form: INJ, PRN, PRN Abnormal Lab Result, Start date: 03/22/12 14:59:00, Duration: 30 day, Stop date: 04/21/12 14:58:00 IVP No Longer Active [place] 03/22/2012 [facility] labetalol 10 mg, 2 mL, Route: IVP, Drug form: INJ, Q1H, PRN Hypertension, Start date: 03/22/12 14:28:00, Duration: 30 day, Stop date: 04/21/12 13:28:00 IVP No Longer Active [place] 03/22/2012 [facility] nter senna 8.6 mg oral tablet 1 tab , Route: PO, Drug Form: TAB, Bedtime, PRN Constipation, Start date: 03/22/12 14:11:00, Duration: 30 day, Stop date: 04/21/12 14:10:00 PO No Longer Active [place] 03/22/2012 [facility] nter hydromorphone 0.5 mg, 0.25 mL, Route: IVP, Drug form: INJ, Q5Min, PRN Pain Score 4-6, Start date: 03/22/12 12:51:00, Duration: 5 doses or times, Stop date: 03/23/12 0:00:00 IVP No Longer Active [place] 03/22/2012 [facility] ondansetron 4 mg, 2 mL, Route: IVP, Drug form: INJ, ONCE, PRN Nausea & Vomiting, Start date: 03/22/12 12:51:00 IVP No Longer Active [place] 03/22/2012 [facility] flumazenil 0.2 mg, 2 mL, Route : IVP, Drug form: INJ, PRN, PRN Benzodiazepine Reversal, Initial dose, Start date: 03/22/12 12:51:00, Duration: 30 day, Stop date: 04/21/12 12:50:00 IVP No Longer Active [place] 03/22/2012 [facility] naloxone 0.04 mg, 0.1 mL, Rout e: IVP, Drug form: INJ, Q2MIN, PRN Narcotic Reversal, Start date: 03/22/12 12:51:00, Duration: 8 doses or times, Stop date: 03/23/12 0:00:00 IVP No Longer Active [place] 03/22/2012 [facility] Plavix 300 mg, 1 tab, Route: P O, Drug form: TAB, ONCE, Priority: NOW, Start date: 03/22/12 12:39:00, Duration: 1 doses or times, Stop date: 03/22/12 12:39:00 PO No Longer Active Lary 03/22/2012 [facility] nter metoclopramide 10 mg, 2 mL, Ro araceli: IV, Drug form: INJ, ONCE, Priority: NOW, Start date: 03/22/12 9:59:00, Stop date: 03/22/12 9:59:00 IV No Longer Active Jeffery 04/2012 [facility] heparin 5,000 unit, 1 mL, Rout e: SUB-Q, Drug form: INJ, Q12H, Start date: 03/22/12 9:00:00, Duration: 30 day, Stop date: 04/20/12 21:00:00 SUB-Q No Longer Active Nava 03/22/2012 [facility] nter Saline Flush 0.9% 5 ml, Route: IVP, Drug Form: INJ, Q12H, Start date: 03/22/12 9:00:00, Duration: 30 day, Stop date: 04/20/12 21:00:00 IVP No Longer Active Yessi 03/22/2012 [facility] docusate sodium 100 mg oral capsule 100 mg, 1 cap, Route: PO, Drug form: CAP, Q12H, Start date: 03/22/12 9:00:00, Duration: 30 day, Stop date: 04/20/12 21:00:00 PO No Longer Active Yessi 03/22/2012 [facility] nter lisinopril 20 mg, 1 tab, Route : PO, Drug form: TAB, Daily, Start date: 03/22/12 9:00:00, Duration: 30 day, Stop date: 04/20/12 9:00:00 PO No Longer Active Yessi 03/22/2012 [facility] Plavix 75 mg, 1 tab, Route: PO , Drug form: TAB, Daily, Start date: 03/22/12 9:00:00, Duration: 30 day, Stop date: 04/20/12 9:00:00 PO No Longer Active Nava 04/2012 [facility] aspirin 325 mg tablet 325 mg, 1 tab, Route: PO, Drug form: TAB, Daily, Start date: 03/22/12 9:00:00, Duration: 30 day, Stop date: 04/20/12 9:00:00 PO No Longer Active Nava 03/22/2012 [facility] nter Saline Flush 0.9% 5 ml, Route: IVP, Drug Form: INJ, PRN, PRN Line Flush, Start date: 03/22/12 8:28:00, Duration: 30 day, Stop date: 04/21/12 8:27:00 IVP No Longer Active Yessi 03/22/2012 [facility] nter Sodium Chloride 0.9% IV 1,000 mL 1,000 mL, Rate: 50 ml/hr, Infuse over: 20 hr, Route: IV, Dosing Weight 90.909 kg, Total Volume: 1,000, Start date: 03/22/12 8:28:00, Duration: 30 day, Stop date: 04/21/12 8:27:00 IV No Longer Active Ramirez 03/22/2012 [facility] ondansetron 4 mg, 2 mL, Route: IVP, Drug form: INJ, Q8H, PRN Nausea & Vomiting, Start date: 03/22/12 8:28:00, Duration: 30 day, Stop date: 04/21/12 8:27:00 IVP No Longer Active Yessi 03/22/2012 [facility] nter acetaminophen-hydrocodone 325 mg-5 mg oral tablet 2 tab, Route: PO, Drug Form: TAB, Q4H, PRN Pain Score 4-6, Start date: 03/22/12 8:28:00, Duration: 30 day, Stop date: 04/21/12 8:27:00 PO No Longer Active Yessi 03/22/2012 [facility] morphine Sulfate 2 mg, 1 mL, R oute: IVP, Drug form: INJ, Q1H, PRN Pain Score 7-10, Start date: 03/22/12 8:28:00, Duration: 30 day, Stop date: 04/21/12 8:27:00 IVP No Longer Active Yessi 03/22/2012 [facility] nter Plavix 300 mg, Route: PO, Drug form: TAB, ONCE, Start date: 03/22/12 8:11:00, Duration: 1 doses or times, Stop date: 03/22/12 8:11:00 PO No Longer Active Lary 2011 [facility] cefazolin 2 gm, 100 mL, Route: IVPB, Drug form: INJ, PRE OP, Priority: STAT, Start date: 03/22/12 6:22:00, Duration: 1 day, Stop date: 03/23/12 6:21:00 IVPB No Longer Active [facility] Plavix 75 mg oral tablet 75 mg , 1 tab, PO, Daily, 30 tab, Substitution Allowed, TAB PO No Longer Active [place] 03/14/2012 [facility] nter Aspirin Low Dose 81 mg oral tablet 81 mg, 1 tab, PO, Daily, Substitution Allowed PO No Longer Active 03/08/2012 [facility] nter Vicodin ES 7.5/750 oral tablet 1-2 tab, PO, Q4-6H, PRN, 30 tab, Pain, Substitution Allowed, Soft Stop PO No Longer Active [place] 03/08/2012 [facility] lisinopril 20 mg, PO, Daily, S ubstitution Allowed [facility] aspirin 325 mg tablet 325 mg, 1 tab, PO, Daily, 30 tab, Substitution Allowed, TAB PO No Longer Active [place] 03/22/2011 [facility] nter Allergies, Adverse Reactions, Alerts Substance Category Reaction Severity Reaction type Status Date Reported Comments Source No Known Medication Allergies Assertion Drug aller gy [facility] Immunizations Immunization Date Given Site Status Last Updated Comments Source pneumococcal 13-valent vaccine 09/21/2016 Left deltoid completed [place] [facility] Results Order Name Results Value Reference Range Date Interpretation Comments Source CHEM PANEL Magnesium Lvl 1.9 1.8 - 2.4 02/26/2020 [facility] CHEM PANEL Phosphorus 2.5 2.5 - 4.5 02/26/2020 [facility] CHEM PANEL Glucose Lvl 126 70 - 99 02/26/2020 [facility] CHEM PANEL BUN 10 7 - 22 02/26/2020 [facility] CHEM PANEL Creatinine Lvl 0.81 0.50 - 1.40 02/26/2020 [facility] CHEM PANEL Sodium Lvl 145 135 - 145 02/26/2020 [facility] CHEM PANEL Potassium Lvl 4.0 3.5 - 5.1 02/26/2020 [facility] CHEM PANEL Chloride Lvl 119 95 - [...] Magnesium Lvl 1.6 1.8 - 2.4 02/26/2020 [facility] CHEM PANEL Phosphorus 2.4 2.5 - 4.5 [...] should be multiplied by the estimated BMI. [facility] CHEM PANEL Glucose Lvl 94 70 - 99 02/25/2020 [facility] CHEM PANEL BUN 13 7 - 22 02/25/2020 [facility] CHEM PANEL Creatinine Lvl 0.81 0.50 - 1.40 02/25/2020 [facility] CHEM PANEL Sodium Lvl 148 135 - 145 02/25/2020 [facility] CHEM PANEL Potassium Lvl 4.1 3.5 - 5.1 02/25/2020 [facility] CHEM PANEL Chloride Lvl 123 95 - 109 02/25/2020 [facility] CHEM PANEL CO2 22 24 - 32 02/25/2020 [facility] CHEM PANEL Calcium Lvl 8.0 8.5 - 10.5 02/25/2020 [facility] CHEM PANEL AGAP 7.1 10.0 - 20.0 02/25/2020 [facility] CHEM PANEL Ammonia 56.0 <=45.0 uMol/L 02/25/2020 [facility] HEMATOLOGY Segs 60.4 45.0 - 75.0 02/25/2020 [facility] Lymphocytes 20.8 20.0 - 40.0 02/25/2020 [facility] HEMATOLOGY Monocytes 11.9 2.0 - 12.0 02/25/2020 [facility] HEMATOLOGY Eosinophils 5.7 0.0 - 4.0 02/25/2020 [facility] HEMATOLOGY Basophils 1.2 0.0 - 1.0 02/25/2020 [facility] HEMATOLOGY Neutrophils # 2.7 1.5 - 8.1 02/25/2020 [facility] Lymphocytes # 0.9 1.0 - 5.5 02/25/2020 [facility] Monocytes # 0.5 0.0 - 0.8 02/25/2020 [facility] Eosinophils # 0.3 0.0 - 0.5 02/25/2020 [facility] Basophils # 0.1 0.0 - 0.2 02/25/2020 [facility] HEMATOLOGY WBC 4.4 3.7 - 10.4 02/25/2020 [facility] HEMATOLOGY RBC 2.50 4.20 - 5.40 02/25/2020 [facility] HEMATOLOGY Hgb 8.1 12.0 - 16.0 02/25/2020 [facility] HEMATOLOGY Hct 24.3 36.0 - 48.0 02/25/2020 [facility] HEMATOLOGY MCV 97.1 80.0 - 98.0 02/25/2020 [facility] HEMATOLOGY MCH 32.6 27.0 - 31.0 02/25/2020 [facility] HEMATOLOGY MCHC 33.6 32.0 - 36.0 02/25/2020 [facility] HEMATOLOGY RDW 15.7 11.5 - 14.5 02/25/2020 [facility] HEMATOLOGY Platelet 61 133 - 450 02/25/2020 [facility] HEMATOLOGY MPV 9.8 7.4 - 10.4 02/25/2020 [facility] HEMATOLOGY Segs 61.9 45.0 - 75.0 02/24/2020 [facility] HEMATOLOGY Lymphocytes 18.3 20.0 - 40.0 02/24/2020 [facility] HEMATOLOGY Monocytes 13.4 2.0 - 12.0 02/24/2020 [facility] HEMATOLOGY Eosinophils 5.7 0.0 - 4.0 02/24/2020 [facility] HEMATOLOGY Basophils 0.7 0.0 - 1.0 02/24/2020 [facility] HEMATOLOGY Neutrophils # 2.5 1.5 - 8.1 02/24/2020 [facility] HEMATOLOGY Lymphocytes # 0.7 1.0 - 5.5 02/24/2020 [facility] HEMATOLOGY Monocytes # 0.5 0.0 - 0.8 02/24/2020 [facility] HEMATOLOGY Eosinophils # 0.2 0.0 - 0.5 02/24/2020 [facility] HEMATOLOGY WBC 4.0 3.7 - 10.4 02/24/2020 [facility] HEMATOLOGY RBC 2.36 4.20 - 5.40 02/24/2020 [facility] HEMATOLOGY Hgb 7.7 12.0 - 16.0 02/24/2020 [facility] HEMATOLOGY Hct 23.0 36.0 - 48.0 02/24/2020 [facility] HEMATOLOGY MCV 97.5 80.0 - 98.0 02/24/2020 [facility] HEMATOLOGY MCH 32.8 27.0 - 31.0 02/24/2020 [facility] HEMATOLOGY MCHC 33.6 32.0 - 36.0 02/24/2020 [facility] HEMATOLOGY RDW 15.3 11.5 - 14.5 02/24/2020 [facility] HEMATOLOGY Platelet 62 133 - 450 02/24/2020 [facility] HEMATOLOGY MPV 9.5 7.4 - 10.4 02/24/2020 [facility] HEMATOLOGY WBC 4.1 3.7 - 10.4 02/23/2020 [facility] HEMATOLOGY RBC 2.35 4.20 - 5.40 02/23/2020 [facility] HEMATOLOGY Hgb 7.8 12.0 - 16.0 02/23/2020 [facility] HEMATOLOGY Hct 22.9 36.0 - 48.0 02/23/2020 [facility] HEMATOLOGY MCV 97.5 80.0 - 98.0 02/23/2020 [facility] HEMATOLOGY MCH 33.3 27.0 - 31.0 02/23/2020 [facility] HEMATOLOGY MCHC 34.1 32.0 - 36.0 02/23/2020 [facility] HEMATOLOGY RDW 15.4 11.5 - 14.5 02/23/2020 [facility] HEMATOLOGY Platelet 59 133 - 450 02/23/2020 [facility] HEMATOLOGY MPV 9.3 7.4 - 10.4 02/23/2020 [facility] HEMATOLOGY Segs 60.9 45.0 - 75.0 02/23/2020 [facility] HEMATOLOGY Lymphocytes 18.5 20.0 - 40.0 02/23/2020 [facility] HEMATOLOGY Monocytes 13.7 2.0 - 12.0 02/23/2020 [facility] HEMATOLOGY Eosinophils 6.4 0.0 - 4.0 02/23/2020 [facility] HEMATOLOGY Basophils 0.5 0.0 - 1.0 02/23/2020 [facility] HEMATOLOGY Neutrophils # 2.5 1.5 - 8.1 02/23/2020 [facility] HEMATOLOGY Lymphocytes # 0.8 1.0 - 5.5 02/23/2020 [facility] HEMATOLOGY Monocytes # 0.6 0.0 - 0.8 02/23/2020 [facility] HEMATOLOGY Eosinophils # 0.3 0.0 - 0.5 [...] Alk Phos 100 39 - 136 02/21/2020 [facility] CHEM PANEL Bili Total 1.9 0.2 - 1.3 02/21/2020 [facility] CHEM PANEL B/C Ratio 27 6 - 25 02/21/2020 [facility] CHEM PANEL Globulin 2.8 2.7 - 4.2 02/21/2020 [facility] CHEM PANEL A/G Ratio 1.0 0.7 - 1.6 02/21/2020 [facility] HEMATOLOGY RBC Morph Alison l (02/20/20 6:17 AM) Normal 02/20/2020 [facility] HEMATOLOGY Plt Morph Alison l (02/20/20 6:17 AM) Normal 02/20/2020 [facility] BLOOD BANK RESULTS RBC product Product available 5 (02/19/20 6:49 AM) 02/19/2020 Result Comment: 02/19/2020 0 7:59 [id number]
notified Yuliya [facility] BLOOD BANK RESULTS Platelet product Product available 4 (02/19/20 6:49 AM) 02/19/2020 Result Comment: 02/19/2020 0 8:00 [id number]
notified Yuliya [facility] CHEM PANEL Total Protein 6.0 6.4 - 8.4 02/19/2020 [facility] CHEM PANEL Albumin Lvl 3.2 3.5 - 5.0 02/19/2020 [facility] CHEM PANEL ALT 25 0 - 65 02/19/2020 [facility] CHEM PANEL AST 44 0 - 37 02/19/2020 [facility] CHEM PANEL Alk Phos 92 39 - 136 02/19/2020 [facility] CHEM PANEL Bili Total 2.0 0.2 - 1.3 02/19/2020 [facility] CHEM PANEL Bili Direct 0.8 0.0 - 0.3 02/19/2020 [facility] CHEM PANEL Globulin 2.8 2.7 - 4.2 02/19/2020 [facility] CHEM PANEL A/G Ratio 1.1 0.7 - 1.6 02/19/2020 [facility] CHEM PANEL Bili Indirect 1.2 0.0 - 1.0 02/19/2020 [facility] CHEM PANEL Procalcitonin Lvl 0.58 0.00 - 0.10 02/19/2020 [facility] HEMATOLOGY PT 25.2 12.0 - 14.7 02/19/2020 [facility] HEMATOLOGY INR 2.24 0.85 - 1.17 02/19/2020 [facility] HEMATOLOGY PTT 46.4 22.9 - 35.8 02/19/2020 [facility] PARATHYROID PROFILE Ca Ion WB 1.12 1.05 - 1.25 02/19/2020 [facility] PARATHYROID PROFILE Ca Norm WB 1.11 1.05 - 1.25 02/19/2020 [facility] CHEM PANEL Bili Direct 0.9 0.0 - 0.3 02/18/2020 [facility] CHEM PANEL Bili Indirect 1.5 0.0 - 1.0 02/18/2020 [facility] HEMATOLOGY PT 25.1 12.0 - 14.7 02/18/2020 [facility] HEMATOLOGY INR 2.23 0.85 - 1.17 02/18/2020 [facility] CHEM PANEL Bili Direct 1.0 0.0 - 0.3 02/18/2020 [facility] CHEM PANEL Bili Indirect 1.4 0.0 - 1.0 02/18/2020 [facility] HEMATOLOGY Basophils # 0.1 0.0 - 0.2 02/18/2020 [facility] CHEM PANEL Procalcitonin Lvl 0.46 0.00 - 0.10 02/18/2020 [facility] ENDOCRINOLOGY Cortisol 25.1 02/18/2020 [facility] HEMATOLOGY Basophils # 0.1 0.0 - 0.2 02/17/2020 [facility] CHEM PANEL B/C Ratio 19 6 - 25 02/17/2020 [facility] URINE CHEM U Sodium 10 02/16/2020 [facility] URINE CHEM U Creatinine 272.00 02/16/2020 [facility] URINE CHEM U Protein 22.0 02/16/2020 [facility] URINE CHEM U Prot/Creat 0.08 02/16/2020 [facility] IMMUNOLOGY Coronavirus (COVID-19) NA A Not Detected (02/16/20 5:26 AM) Not Detected 02/16/2020 [facility] URINE AND STOOL UA Color Yellow *NA* (02/16/20 5:24 AM) Yellow 02/16/2020 [facility] URINE AND STOOL UA Turbidity Marked *ABN* (02/16/20 5:24 AM) Clear 02/16/2020 [facility] URINE AND STOOL UA Spec Grav 1.014 <=1.030 02/16/2020 [facility] URINE AND STOOL UA pH 5.0 5.0 - 8.0 02/16/2020 [facility] URINE AND STOOL UA Protein Negative mg/dL Negative mg/dL 02/16/2020 [facility] URINE AND STOOL UA Glucose Negative mg/dL Negative mg/dL 02/16/2020 [facility] URINE AND STOOL UA Ketones Negative mg/dL Negative mg/dL 02/16/2020 [facility] URINE AND STOOL UA Bili Negative *NA* (02/16/20 5:24 AM) Negative 02/16/2020 [facility] URINE AND STOOL UA Blood Negative (02/16/20 5:24 AM) Negative 02/16/2020 [facility] URINE AND STOOL UA Nitrite Negative (02/16/20 5:24 AM) Negative 02/16/2020 [facility] URINE AND STOOL UA Leuk Est Negative (02/16/20 5:24 AM) Negative 02/16/2020 [facility] URINE AND STOOL UA Sq Epi Occasional /LPF Few /LPF 02/16/2020 [facility] URINE AND STOOL UA WBC 1 0 - 5 02/16/2020 [facility] URINE AND STOOL UA RBC <1 0 - 2 02/16/2020 [facility] URINE AND STOOL UA Bacteria Few /HPF None Seen /HPF 02/16/2020 [facility] URINE AND STOOL UA Urobilinogen <=1.0 mg/dL 0.1 - 1.0 02/16/2020 [facility] URINE CHEM U Sodium 18 02/16/2020 [facility] URINE CHEM U Potassium 27.7 02/16/2020 [facility] URINE CHEM U Chloride 20 02/16/2020 [facility] IMMUNOLOGY Coronavirus (COVID-19) NA A See Note 7 (02/16/20 3:16 AM) Not Detected 02/16/2020 Result Comment: Namita t result invalid. New specimen required for repeat testing. [facility] URINE AND STOOL Occult Bld Stl Positive *ABN* (02/16/20 3:16 AM) Negative 02/16/2020 [facility] BLOOD BANK RESULTS ABO/Rh A POS 02/16/2020 [facility] BLOOD [facility] RESULTS Antibody Scrn Negative (02/16/20 12:00 AM) 02/16/2020 [facility] CARDIAC ENZYMES Total CK 59 12 - 191 02/16/2020 [facility] CARDIAC ENZYMES Troponin-I <0.02 0.00 - 0.40 02/16/2020 [facility] CARDIAC ENZYMES BNP 114 <=100 pg/mL 02/16/2020 [facility] HEMATOLOGY PT 20.5 12.0 - 14.7 02/16/2020 [facility] HEMATOLOGY INR 1.73 0.85 - 1.17 02/16/2020 [facility] HEMATOLOGY PTT 34.5 22.9 - 35.8 02/16/2020 [facility] CHEM PANEL AST 30 0 - 37 10/18/2016 [facility] CHEM PANEL Bili Direct 0.6 0.0 - 0.3 10/18/2016 [facility] CHEM PANEL Bili Total 1.7 0.2 - 1.3 10/18/2016 [facility] CHEM PANEL Alk Phos 129 39 - 136 10/18/2016 [facility] CHEM PANEL ALT 28 0 - 65 10/18/2016 [facility] CHEM PANEL Albumin Lvl 2.2 3.5 - 5.0 10/18/2016 [facility] CHEM PANEL Total Protein 5.8 6.4 - 8.4 10/18/2016 [facility] CHEM PANEL Bili Indirect 1.1 0.0 - 1.0 10/18/2016 [facility] CHEM PANEL A/G Ratio 0.6 0.7 - 1.6 10/18/2016 [facility] CHEM PANEL Globulin 3.6 2.7 - 4.2 10/18/2016 [facility] ELECTROLYTES AGAP 12.0 10.0 - 20.0 10/18/2016 [facility] ELECTROLYTES eGFR 94 10/18/2016 Result Comment: The [...] should be multiplied by the estimated BMI. [facility] ELECTROLYTES Calcium Lvl 7.6 8.5 - 10.5 10/18/2016 [facility] ELECTROLYTES Chloride Lvl 109 95 - 109 10/18/2016 [facility] ELECTROLYTES CO2 24 24 - 32 10/18/2016 [facility] ELECTROLYTES Potassium Lvl 4.0 3.5 - 5.1 10/18/2016 [facility] ELECTROLYTES Sodium Lvl 141 135 - 145 10/18/2016 [facility] ELECTROLYTES Glucose Lvl 142 70 - 99 10/18/2016 [facility] ELECTROLYTES BUN 8 7 - 22 10/18/2016 [facility] ELECTROLYTES Creatinine Lvl 0.6 8 0.50 - 1.40 10/18/2016 [facility] HEMATOLOGY Platelet 50 133 - 450 10/18/2016 [facility] HEMATOLOGY PTT 36.7 22.9 - 35.8 10/18/2016 [facility] HEMATOLOGY INR 1.51 0.85 - 1.17 10/18/2016 [facility] HEMATOLOGY PT 18.5 12.0 - 14.7 10/18/2016 [facility] HEMATOLOGY WBC 3.3 3.7 - 10.4 10/18/2016 [facility] CHEM PANEL Lipase Lvl 238 73 - 393 09/21/2016 [facility] CHEM PANEL Ammonia 66.0 <=45.0 uMol/L 09/21/2016 [facility] CHEM PANEL Lactic Acid Lvl 1.2 0.5 - 2.2 09/21/2016 [facility] CHEM PANEL B/C Ratio 9 6 - 25 09/21/2016 [facility] CHEM PANEL Globulin 3.6 2.7 - 4.2 09/21/2016 [facility] CHEM PANEL AGAP 9.5 10.0 - 20.0 09/21/2016 [facility] CHEM PANEL A/G Ratio 0.6 0.7 - 1.6 09/21/2016 [facility] CHEM PANEL AST 41 0 - 37 09/21/2016 [facility] CHEM PANEL Bili Total 1.5 0.2 - 1.3 09/21/2016 [facility] CHEM PANEL Alk Phos 139 39 - 136 09/21/2016 [facility] CHEM PANEL eGFR 102 09/21/2016 Result Comment: [...] should be multiplied by the estimated BMI. [facility] CHEM PANEL Albumin Lvl 2.1 3.5 - 5.0 09/21/2016 [facility] CHEM PANEL ALT 23 0 - 65 09/21/2016 [facility] CHEM PANEL BUN 5 7 - 22 09/21/2016 [facility] CHEM PANEL Glucose Lvl 75 70 - 99 09/21/2016 [facility] CHEM PANEL Potassium Lvl 3.5 3.5 - 5.1 09/21/2016 [facility] CHEM PANEL Sodium Lvl 144 135 - 145 09/21/2016 [facility] CHEM PANEL Creatinine Lvl 0.53 0.50 - 1.40 09/21/2016 [facility] CHEM PANEL CO2 23 24 - 32 09/21/2016 [facility] CHEM PANEL Total Protein 5.7 6.4 - 8.4 09/21/2016 [facility] CHEM PANEL Chloride Lvl 115 95 - 109 09/21/2016 [facility] CHEM PANEL Calcium Lvl 7.3 8.5 - 10.5 09/21/2016 [facility] HEMATOLOGY Monocytes # 0.3 0.0 - 0.8 09/21/2016 [facility] Eosinophils # 0.2 0.0 - 0.5 09/21/2016 [facility] HEMATOLOGY Eosinophils 4.1 0.0 - 4.0 09/21/2016 [facility] Lymphocytes # 1.1 1.0 - 5.5 09/21/2016 [facility] Basophils 0.7 0.0 - 1.0 09/21/2016 [facility] Segs-Bands # 2.4 1.5 - 8.1 09/21/2016 [facility] HEMATOLOGY Segs 59.0 45.0 - 75.0 09/21/2016 [facility] Lymphocytes 27.6 20.0 - 40.0 09/21/2016 [facility] Monocytes 8.6 2.0 - 12.0 09/21/2016 [facility] MPV 10.0 7.4 - 10.4 09/21/2016 [facility] MCHC 34.4 32.0 - 36.0 09/21/2016 [facility] MCH 31.1 27.0 - 31.0 09/21/2016 [facility] RDW 15.6 11.5 - 14.5 09/21/2016 [facility] HEMATOLOGY Platelet 48 133 - 450 09/21/2016 [facility] HEMATOLOGY MCV 90.4 80.0 - 98.0 09/21/2016 [facility] HEMATOLOGY WBC 4.0 3.7 - 10.4 09/21/2016 [facility] HEMATOLOGY Hct 28.7 36.0 - 48.0 09/21/2016 [facility] HEMATOLOGY RBC 3.18 4.20 - 5.40 09/21/2016 [facility] HEMATOLOGY Hgb 9.9 12.0 - 16.0 09/21/2016 [facility] IMMUNOLOGY CLEO Interp Patte rn appears speckled 09/21/2016 [facility] IMMUNOLOGY CLEO Titer 1:160 *ABN* (09/21/16 4:16 AM) Negative 09/21/2016 [facility] Hep Bs Ag Negat aristeo *NA* (09/21/16 4:16 AM) Negative 09/21/2016 [facility] Hep A IgM Negat aristeo *NA* (09/21/16 4:16 AM) Negative 09/21/2016 [facility] Hep C Ab Negat aristeo *NA* (09/21/16 4:16 AM) 09/21/2016 [facility] Hep B Core IgM Negat aristeo *NA* (09/21/16 4:16 AM) Negative 09/21/2016 [facility] CLEO Posit aristeo *ABN* (09/21/16 4:16 AM) Negative 09/21/2016 [facility] LIPIDS CHD Risk 3.00 3.90 - 5.80 09/21/2016 [facility] LIPIDS VLDL 9 09/21/2016 [facility] LIPIDS LDL (Calculated) 63 <=99 mg/dL 09/21/2016 [facility] LIPIDS HDL 36 >=61 mg/dL 09/21/2016 [facility] LIPIDS Chol 108 <=199 mg/dL 09/21/2016 [facility] LIPIDS Trig 44 <=149 mg/dL 09/21/2016 [facility] ANEMIA STUDY Folate Lvl 19.6 >=3.0 ng/mL 09/20/2016 [facility] ANEMIA STUDY Vitamin B12 Lvl 670 254 - 1320 09/20/2016 [facility] ANEMIA STUDY % Satur Fe 34 12 - 57 09/20/2016 [facility] ANEMIA STUDY TIBC 157 228 - 428 09/20/2016 [facility] ANEMIA STUDY UIBC 104 110 - 370 09/20/2016 [facility] ANEMIA STUDY Iron 53 30 - 160 09/20/2016 [facility] ANEMIA STUDY Ferritin Lvl 15 5 - 204 09/20/2016 [facility] CHEM PANEL B/C Ratio 15 6 - 25 09/20/2016 [facility] CHEM PANEL AGAP 10.8 10.0 - 20.0 09/20/2016 [facility] CHEM PANEL A/G Ratio 0.6 0.7 - 1.6 09/20/2016 [facility] CHEM PANEL Globulin 3.3 2.7 - 4.2 09/20/2016 [facility] CHEM PANEL eGFR 107 09/20/2016 Result Comment: [...] should be multiplied by the estimated BMI. [facility] CHEM PANEL Chloride Lvl 116 95 - 109 09/20/2016 [facility] CHEM PANEL Potassium Lvl 3.8 3.5 - 5.1 09/20/2016 [facility] CHEM PANEL Sodium Lvl 145 135 - 145 09/20/2016 [facility] CHEM PANEL Creatinine Lvl 0.46 0.50 - 1.40 09/20/2016 [facility] CHEM PANEL BUN 7 7 - 22 09/20/2016 [facility] CHEM PANEL Glucose Lvl 75 70 - 99 09/20/2016 [facility] CHEM PANEL Bili Total 1.8 0.2 - 1.3 09/20/2016 [facility] CHEM PANEL Alk Phos 119 39 - 136 09/20/2016 [facility] CHEM PANEL AST 37 0 - 37 09/20/2016 [facility] CHEM PANEL ALT 20 0 - 65 09/20/2016 [facility] CHEM PANEL Albumin Lvl 1.9 3.5 - 5.0 09/20/2016 [facility] CHEM PANEL Total Protein 5.2 6.4 - 8.4 09/20/2016 [facility] CHEM PANEL Calcium Lvl 7.1 8.5 - 10.5 09/20/2016 [facility] CHEM PANEL CO2 22 24 - 32 09/20/2016 [facility] HEMATOLOGY Basophils 0.6 0.0 - 1.0 09/20/2016 [facility] HEMATOLOGY Segs-Bands # 2.0 1.5 - 8.1 09/20/2016 [facility] HEMATOLOGY Lymphocytes # 1.1 1.0 - 5.5 09/20/2016 [facility] HEMATOLOGY Monocytes # 0.3 0.0 - 0.8 09/20/2016 [facility] HEMATOLOGY Eosinophils # 0.1 0.0 - 0.5 09/20/2016 [facility] HEMATOLOGY Segs 55.3 45.0 - 75.0 09/20/2016 [facility] Lymphocytes 30.8 20.0 - 40.0 09/20/2016 [facility] Monocytes 9.4 2.0 - 12.0 09/20/2016 [facility] Eosinophils 3.9 0.0 - 4.0 09/20/2016 [facility] PT 21.6 12.0 - 14.7 09/20/2016 [facility] INR 1.84 0.85 - 1.17 09/20/2016 [facility] RDW 15.4 11.5 - 14.5 09/20/2016 [facility] MPV 10.6 7.4 - 10.4 09/20/2016 [facility] [facility] Platelet 46 133 - 450 09/20/2016 [facility] Hgb 9.3 12.0 - 16.0 09/20/2016 [facility] RBC 2.98 4.20 - 5.40 09/20/2016 [facility] WBC 3.6 3.7 - 10.4 09/20/2016 [facility] MCH 31.1 27.0 - 31.0 09/20/2016 [facility] MCHC 34.5 32.0 - 36.0 09/20/2016 [facility] HEMATOLOGY Hct 26.9 36.0 - 48.0 09/20/2016 [facility] MCV 90.1 80.0 - 98.0 09/20/2016 [facility] HEMATOLOGY Retic Auto 2.0 0.5 - 1.5 09/20/2016 [facility] Hep C Ab Negat aristeo *NA* (09/20/16 6:29 AM) 09/20/2016 [facility] IMMUNOLOGY Hep B Core IgM Negat aristeo *NA* (09/20/16 6:29 AM) Negative 09/20/2016 [facility] IMMUNOLOGY Hep Bs Ag Negat aristeo *NA* (09/20/16 6:29 AM) Negative 09/20/2016 [facility] IMMUNOLOGY Hep A IgM Negat aristeo *NA* (09/20/16 6:29 AM) Negative 09/20/2016 [facility] IMMUNOLOGY Hep C Ab Negat aristeo *NA* (09/20/16 6:29 AM) 09/20/2016 [facility] IMMUNOLOGY Hep B Core IgM Negat aristeo *NA* (09/20/16 6:29 AM) Negative 09/20/2016 [facility] IMMUNOLOGY Hep A IgM Negat aristeo *NA* (09/20/16 6:29 AM) Negative 09/20/2016 [facility] Hep Bs Ag Negat aristeo *NA* (09/20/16 6:29 AM) Negative 09/20/2016 [facility] Hep A Tot Posit aristeo *NA* (09/20/16 6:29 AM) Negative 09/20/2016 [facility] Hep C Ab Negat aristeo *NA* (09/20/16 6:29 AM) 09/20/2016 [facility] Hep Bs Ab <3.1 <=7.4 mIU/mL 09/20/2016 [facility] CHEM PANEL Magnesium Lvl 2.1 1.8 - 2.4 09/19/2016 [facility] CHEM PANEL eGFR 105 09/19/2016 Result Comment: [...] B/C Ratio 20 6 - 25 09/19/2016 [facility] CHEM PANEL AGAP 12.6 10.0 - 20.0 09/19/2016 [facility] HEMATOLOGY Lymphocytes # 1.2 1.0 - 5.5 09/19/2016 [facility] HEMATOLOGY Monocytes # 0.4 0.0 - 0.8 09/19/2016 [facility] HEMATOLOGY Monocytes 8.2 2.0 - 12.0 09/19/2016 [facility] HEMATOLOGY Lymphocytes 27.5 20.0 - 40.0 09/19/2016 [facility] HEMATOLOGY Eosinophils # 0.1 0.0 - 0.5 09/19/2016 [facility] HEMATOLOGY Segs-Bands # 2.7 1.5 - 8.1 09/19/2016 [facility] HEMATOLOGY Basophils 0.6 0.0 - 1.0 09/19/2016 [facility] HEMATOLOGY Eosinophils 2.3 0.0 - 4.0 09/19/2016 [facility] HEMATOLOGY Segs 61.4 45.0 - 75.0 09/19/2016 [facility] HEMATOLOGY MCHC 34.4 32.0 - 36.0 09/19/2016 [facility] HEMATOLOGY Platelet 60 133 - 450 09/19/2016 [facility] HEMATOLOGY RDW 15.3 11.5 - 14.5 09/19/2016 [facility] HEMATOLOGY MCH 31.1 27.0 - 31.0 09/19/2016 [facility] HEMATOLOGY MCV 90.4 80.0 - 98.0 09/19/2016 [facility] HEMATOLOGY MPV 10.6 7.4 - 10.4 09/19/2016 [facility] HEMATOLOGY Hct 29.6 36.0 - 48.0 09/19/2016 [facility] HEMATOLOGY Hgb 10.2 12.0 - 16.0 09/19/2016 [facility] HEMATOLOGY RBC 3.28 4.20 - 5.40 09/19/2016 [facility] WBC 4.4 3.7 - 10.4 09/19/2016 [facility] CHEM PANEL Lactic Acid Lvl 1.9 0.5 - 2.2 09/18/2016 [facility] CHEM PANEL Lipase Lvl 275 73 - 393 09/18/2016 [facility] VIRAL - SEROLOGY Influ A Negative (09/18/16 2:48 PM) Negative 09/18/2016 [facility] VIRAL - SEROLOGY Influ B Negative (09/18/16 2:48 PM) Negative 09/18/2016 [facility] CARDIAC ENZYMES Troponin-I <0.02 0.00 - 0.40 09/18/2016 [facility] CARDIAC ENZYMES CK MB 1.4 0.5 - 3.6 09/18/2016 [facility] CARDIAC ENZYMES Total CK 73 12 - 191 09/18/2016 [facility] CARDIAC ENZYMES CK MB Index 1.9 0.0 - 2.5 09/18/2016 [facility] CHEM PANEL Lactic Acid Lvl 2.6 0.5 - 2.2 09/18/2016 [facility] DRUG SCREEN UDS Note See Note *NA* (09/18/16 2:45 PM) 09/18/2016 [facility] DRUG SCREEN U Benzodia Scr Nega tive *NA* (09/18/16 2:45 PM) Negative 09/18/2016 [facility] DRUG SCREEN U Phencyc Scr Nega tive *NA* (09/18/16 2:45 PM) Negative 09/18/2016 [facility] DRUG SCREEN U Cocaine Scr Nega tive *NA* (09/18/16 2:45 PM) Negative 09/18/2016 [facility] DRUG SCREEN U Cannab Scr Nega tive *NA* (09/18/16 2:45 PM) Negative 09/18/2016 [facility] DRUG SCREEN U Opiate Scr Nega tive *NA* (09/18/16 2:45 PM) Negative 09/18/2016 [facility] DRUG SCREEN U Angela Scr Nega tive *NA* (09/18/16 2:45 PM) Negative 09/18/2016 [facility] DRUG SCREEN U Amph Scr Nega tive *NA* (09/18/16 2:45 PM) Negative 09/18/2016 [facility] TOXICOLOGY Etoh (%) <0.003 09/18/2016 [facility] TOXICOLOGY Ethanol Lvl <3 09/18/2016 [facility] URINE AND STOOL UA Sq Epi Occasional /LPF Few /LPF 09/18/2016 [facility] URINE AND STOOL UA Leuk Est Negative (09/18/16 2:45 PM) Negative 09/18/2016 [facility] URINE AND STOOL UA WBC 1 0 - 5 09/18/2016 [facility] URINE AND STOOL UA Nitrite Negative (09/18/16 2:45 PM) Negative 09/18/2016 [facility] URINE AND STOOL UA RBC 1 0 - 2 09/18/2016 [facility] URINE AND STOOL UA Urobilinogen 4.0 0.1 - 1.0 09/18/2016 [facility] URINE AND STOOL UA pH 6.0 5.0 - 8.0 09/18/2016 [facility] URINE AND STOOL UA Turbidity Clear (09/18/16 2:45 PM) Clear 09/18/2016 [facility] URINE AND STOOL UA Spec Grav 1.027 [...] Negative *NA* (09/18/16 2:45 PM) Negative 09/18/2016 [facility] URINE AND STOOL UA Ketones Negative mg/dL Negative mg/dL 09/18/2016 [facility] CARDIAC ENZYMES Troponin-I <0.02 0.00 - 0.40 04/29/2016 [facility] URINE AND STOOL UA WBC 7 0 - 5 04/29/2016 [facility] URINE AND STOOL UA Sq Epi Occasional /LPF Few /LPF 04/29/2016 [facility] URINE AND STOOL UA RBC 1 0 - 2 04/29/2016 [facility] URINE AND STOOL UA Mucus Few /LPF None Seen /LPF 04/29/2016 [facility] URINE AND STOOL UA Bacteria Many /HPF None Seen /HPF 04/29/2016 [facility] URINE AND STOOL UA Ketones Negative mg/dL Negative mg/dL 04/29/2016 [facility] URINE AND STOOL UA Urobilinogen 2.0 0.1 - 1.0 04/29/2016 [facility] URINE AND STOOL UA Nitrite Positive *ABN* (04/29/16 1:18 AM) Negative 04/29/2016 [facility] URINE AND STOOL UA Bili Negative *NA* (04/29/16 1:18 AM) Negative 04/29/2016 [facility] URINE AND STOOL UA Blood Small *ABN* (04/29/16 1:18 AM) Negative 04/29/2016 [facility] URINE AND STOOL UA Protein Negative mg/dL Negative mg/dL 04/29/2016 [facility] URINE AND STOOL UA Glucose Negative mg/dL Negative mg/dL 04/29/2016 [facility] URINE AND STOOL UA Leuk Est Small *ABN* (04/29/16 1:18 AM) Negative 04/29/2016 [facility] URINE AND STOOL UA pH 5.0 5.0 - 8.0 04/29/2016 [facility] URINE AND STOOL UA Color Yellow *NA* (04/29/16 1:18 AM) Yellow 04/29/2016 [facility] URINE AND STOOL UA Spec Grav 1.011 <=1.030 04/29/2016 [facility] URINE AND STOOL UA Turbidity Clear (04/29/16 1:18 AM) Clear 04/29/2016 [facility] CARDIAC ENZYMES BNP 50 <=100 pg/mL 04/29/2016 [facility] CARDIAC ENZYMES Troponin-I <0.02 0.00 - 0.40 04/29/2016 [facility] CARDIAC ENZYMES Total CK 58 12 - 191 04/29/2016 [facility] CARDIAC ENZYMES CK MB 0.9 0.5 - 3.6 04/29/2016 [facility] CARDIAC ENZYMES CK MB Index 1.6 0.0 - 2.5 04/29/2016 [facility] CHEM PANEL Bili Direct 0.6 0.0 - 0.3 04/29/2016 [facility] CHEM PANEL eGFR 94 04/29/2016 Result Comment: [...] should be multiplied by the estimated BMI. [facility] CHEM PANEL Globulin 4.1 2.7 - 4.2 04/29/2016 [facility] CHEM PANEL A/G Ratio 0.6 0.7 - 1.6 04/29/2016 [facility] CHEM PANEL Potassium Lvl 3.3 3.5 - 5.1 04/29/2016 [facility] CHEM PANEL Chloride Lvl 107 95 - 109 04/29/2016 [facility] CHEM PANEL Albumin Lvl 2.6 3.5 - 5.0 04/29/2016 [facility] CHEM PANEL ALT 21 0 - 65 04/29/2016 [facility] CHEM PANEL CO2 27 24 - 32 04/29/2016 [facility] CHEM PANEL Calcium Lvl 8.2 8.5 - 10.5 04/29/2016 [facility] CHEM PANEL Total Protein 6.7 6.4 - 8.4 04/29/2016 [facility] CHEM PANEL AGAP 10.3 10.0 - 20.0 04/29/2016 [facility] CHEM PANEL Bili Total 1.5 0.2 - 1.3 04/29/2016 [facility] CHEM PANEL Alk Phos 128 39 - 136 04/29/2016 [facility] CHEM PANEL AST 38 0 - 37 04/29/2016 [facility] CHEM PANEL B/C Ratio 16 6 - 25 04/29/2016 [facility] CHEM PANEL Glucose Lvl 79 70 - 99 04/29/2016 [facility] CHEM PANEL BUN 11 7 - 22 04/29/2016 [facility] CHEM PANEL Creatinine Lvl 0.70 0.50 - 1.40 04/29/2016 [facility] CHEM PANEL Sodium Lvl 141 135 - 145 04/29/2016 [facility] HEMATOLOGY PTT 32.1 22.9 - 35.8 04/29/2016 [facility] HEMATOLOGY INR 1.42 0.85 - 1.17 04/29/2016 [facility] HEMATOLOGY PT 17.7 12.0 - 14.7 04/29/2016 [facility] HEMATOLOGY MCH 30.6 27.0 - 31.0 04/29/2016 [facility] HEMATOLOGY MCV 90.3 80.0 - 98.0 04/29/2016 [facility] HEMATOLOGY Hgb 11.3 12.0 - 16.0 04/29/2016 [facility] HEMATOLOGY RBC 3.68 4.20 - 5.40 04/29/2016 [facility] HEMATOLOGY Hct 33.2 36.0 - 48.0 04/29/2016 [facility] HEMATOLOGY MPV 10.9 7.4 - 10.4 04/29/2016 [facility] HEMATOLOGY WBC 5.6 3.7 - 10.4 04/29/2016 [facility] HEMATOLOGY Platelet 52 133 - 450 04/29/2016 [facility] HEMATOLOGY RDW 15.2 11.5 - 14.5 04/29/2016 [facility] HEMATOLOGY MCHC 33.9 32.0 - 36.0 04/29/2016 [facility] HEMATOLOGY Eosinophils 2.0 0.0 - 4.0 04/29/2016 [facility] HEMATOLOGY Monocytes 8.1 2.0 - 12.0 04/29/2016 [facility] HEMATOLOGY Basophils 0.9 0.0 - 1.0 04/29/2016 [facility] HEMATOLOGY Segs 63.2 45.0 - 75.0 04/29/2016 [facility] HEMATOLOGY Lymphocytes 25.8 20.0 - 40.0 04/29/2016 [facility] HEMATOLOGY Basophils # 0.1 0.0 - 0.2 04/29/2016 [facility] HEMATOLOGY Lymphocytes # 1.4 1.0 - 5.5 04/29/2016 [facility] HEMATOLOGY Eosinophils # 0.1 0.0 - 0.5 04/29/2016 [facility] HEMATOLOGY Monocytes # 0.5 0.0 - 0.8 04/29/2016 [facility] HEMATOLOGY Segs-Bands # 3.5 1.5 - 8.1 04/29/2016 [facility] BEDSIDE GLUCOSE TESTING Comment1 Notify RN/ 03/23/2012 NA [facility] BEDSIDE GLUCOSE TESTING Gluc POC Lif scn 120 70 - 99 03/23/2012 [facility] <sup>1</sup>Interpretive Data: Upper Reportable Limit: 200 mg/dL. [facility] BEDSIDE GLUCOSE TESTING Comment1 Notify RN/ 03/23/2012 NA [facility] BEDSIDE GLUCOSE TESTING Gluc POC Lif scn 129 70 - 99 03/23/2012 [facility] <sup>2</sup>Interpretive Data: Upper Reportable Limit: 200 mg/dL. [facility] BEDSIDE GLUCOSE TESTING Gluc POC Lif scn 121 70 - 99 03/23/2012 [facility] <sup>3</sup>Interpretive Data: Upper Reportable Limit: 200 mg/dL. [facility] BEDSIDE GLUCOSE TESTING Comment1 Notify RN/ 03/23/2012 NA [facility] HEMATOLOGY Plav Effect Plt 60 03/23/2012 NA [...] GP IIb/IIIa Inhibitor, e.g. ReoPro or Integrilin [facility] HEMATOLOGY ASA Effect Plt 411 03/23/2012 NA [...] higher ARU values than ASA taken alone. [facility] CHEMISTRY CO2 19 24 - 32 03/23/2012 LOW [facility] CHEMISTRY Creatinine Lvl 0.8 0.5 - 1.4 03/23/2012 Normal [facility] CHEMISTRY Sodium Lvl 145 135 - 145 03/23/2012 Normal [facility] CHEMISTRY Potassium Lvl 3.7 3.5 - 5.1 03/23/2012 Normal [facility] CHEMISTRY Chloride Lvl 113 95 - 109 03/23/2012 [facility] CHEMISTRY Calcium Lvl 7.8 8.5 - 10.5 03/23/2012 LOW [facility] CHEMISTRY Glucose Lvl 133 70 - 99 03/23/2012 [place] <sup>4</sup>Interpretive Data: Adult ref erence range values reflect the clinical guidelines
of the [employer] [employer]. [facility] CHEMISTRY BUN 7 7 - 22 03/23/2012 Normal [facility] CHEMISTRY AGAP 16.7 10.0 - 20.0 03/23/2012 Normal [facility] CHEMISTRY Phosphorus 2.2 2.5 - 4.5 03/23/2012 LOW [facility] CHEMISTRY Magnesium Lvl 1.8 1.8 - 2.4 03/23/2012 Normal [facility] CHEMISTRY Ca Norm 1.22 1.16 - 1.30 03/23/2012 Normal [facility] CHEMISTRY Ca Ion 1.16 1.16 - 1.30 03/23/2012 Normal [facility] CHEMISTRY Ca Norm mgdL 4.88 4.65 - 5.20 03/23/2012 Normal [facility] CHEMISTRY Ca Ion mgdL 4.64 4.65 - 5.20 03/23/2012 [facility] HEMATOLOGY PT 15.4 12.0 - 14.7 03/23/2012 [facility] HEMATOLOGY INR 1.20 0.85 - 1.17 03/23/2012 [facility] <sup>7</sup>Interpretive Data: RECOMMEND ED RANGES FOR PROTIME INR:
2.0-3.0 for most medical and surgical thromboembolic states.
2.5-3.5 for artificial heart valves and recurrent embolism.

INR SHOULD BE USED ONLY FOR PATIENTS ON STABLE ANTICOAGULANT THERAPY. [facility] HEMATOLOGY PTT 32.2 22.9 - 35.8 03/23/2012 Normal <sup>9</sup>Interpretive Data: Heparin T herapeutic Range: 57 - 92 Seconds [facility] HEMATOLOGY WBC 7.8 3.7 - 10.4 03/23/2012 Normal [facility] HEMATOLOGY Hgb 11.8 12.0 - 16.0 03/23/2012 [facility] HEMATOLOGY RBC 3.77 4.20 - 5.40 03/23/2012 [facility] HEMATOLOGY Hct 34.0 36.0 - 48.0 03/23/2012 [facility] HEMATOLOGY MCH 31.4 27.0 - 31.0 03/23/2012 [facility] HEMATOLOGY Platelet 78 133 - 450 03/23/2012 [facility] HEMATOLOGY MCV 90.4 81.0 - 99.0 03/23/2012 Normal [facility] HEMATOLOGY RDW 13.6 11.5 - 14.5 03/23/2012 [facility] HEMATOLOGY MCHC 34.7 32.0 - 36.0 03/23/2012 Normal [facility] HEMATOLOGY MPV 10.4 7.4 - 10.4 03/23/2012 [facility] HEMATOLOGY Segs 80.1 45.0 - 75.0 03/23/2012 [facility] HEMATOLOGY Lymphocytes 15.4 20.0 - 40.0 03/23/2012 [facility] HEMATOLOGY Monocytes 4.3 2.0 - 12.0 03/23/2012 Normal [facility] HEMATOLOGY Monocytes # 0.3 0.0 - 0.8 03/23/2012 Normal [facility] HEMATOLOGY Basophils # 0.0 0.0 - 0.2 03/23/2012 Normal [facility] HEMATOLOGY Eosinophils # 0.0 0.0 - 0.5 03/23/2012 Normal [facility] HEMATOLOGY Basophils 0.2 0.0 - 1.0 03/23/2012 Normal [facility] HEMATOLOGY Eosinophils 0.0 0.0 - 4.0 03/23/2012 Normal [facility] HEMATOLOGY Segs-Bands # 6.2 1.5 - 8.1 03/23/2012 Normal [facility] HEMATOLOGY Lymphocytes # 1.2 1.0 - 5.5 03/23/2012 Normal [facility] HEMATOLOGY ASA Effect Plt 466 03/22/2012 NA [...] higher ARU values than ASA taken alone. [facility] HEMATOLOGY Plav Effect Plt 51 03/22/2012 NA [...] GP IIb/IIIa Inhibitor, e.g. ReoPro or Integrilin [facility] Microbiology Culture: Urine 03/22/2012 [facility] Microbiology Culture: Resistant Acin etobacter Screen 03/22/2012 [facility] Microbiology Culture: MRSA 03/22/2012 [facility] CHEMISTRY Chloride Lvl 113 95 - 109 03/22/2012 [facility] CHEMISTRY CO2 22 24 - 32 03/22/2012 LOW [facility] CHEMISTRY Calcium Lvl 7.6 8.5 - 10.5 03/22/2012 LOW [facility] CHEMISTRY AGAP 13.8 10.0 - 20.0 03/22/2012 Normal [facility] CHEMISTRY Potassium Lvl 3.8 3.5 - 5.1 03/22/2012 Normal [facility] CHEMISTRY Creatinine Lvl 0.7 0.5 - 1.4 03/22/2012 Normal [facility] CHEMISTRY Sodium Lvl 145 135 - 145 03/22/2012 Normal [facility] CHEMISTRY BUN 7 7 - 22 03/22/2012 Normal [facility] CHEMISTRY Glucose Lvl 116 70 - 99 03/22/2012 [facility] <sup>5</sup>Interpretive Data: Adult ref erence range values reflect the clinical guidelines
of the [place] [employer]. [facility] CHEMISTRY Phosphorus 2.4 2.5 - 4.5 03/22/2012 LOW [facility] CHEMISTRY Magnesium Lvl 1.8 1.8 - 2.4 03/22/2012 Normal [facility] HEMATOLOGY Hct 35.2 36.0 - 48.0 03/22/2012 LOW [facility] HEMATOLOGY Hgb 11.9 12.0 - 16.0 03/22/2012 LOW [facility] URINALYSIS UA Urobilinogen 0.1 - 1.0 03/22/2012 NA [facility] URINALYSIS UA Nitrite Negat aristeo (03/22/2012 14:40:00) Negati ve 03/22/2012 Normal [facility] URINALYSIS UA Bili Negat aristeo *NA* (03/22/2012 14:40:00) Negati ve 03/22/2012 NA [facility] URINALYSIS UA Leuk Est Trace *ABN* (03/22/2012 14:40:00) Negati ve 03/22/2012 ABN [facility] URINALYSIS UA Blood Trace *ABN* (03/22/2012 14:40:00) Negati ve 03/22/2012 ABN [facility] URINALYSIS UA Sq Epi Occas ional /LPF *NA* (03/22/2012 14:40:00) Few 03/22/2012 NA [facility] URINALYSIS UA RBC 42 0 - 2 03/22/2012 [facility] URINALYSIS UA WBC 5 0 - 5 03/22/2012 Normal [facility] URINALYSIS UA Ketones Negat aristeo mg/dL *NA* (03/22/2012 14:40:00) Negati ve 03/22/2012 NA [facility] URINALYSIS UA Turbidity Clear (03/22/2012 14:40:00) Clear 03/22/2012 Normal [facility] URINALYSIS UA Glucose Negat aristeo mg/dL *NA* (03/22/2012 14:40:00) Negati ve 03/22/2012 NA [facility] URINALYSIS UA Protein Negat aristeo mg/dL (03/22/2012 14:40:00) Negati ve 03/22/2012 Normal [facility] URINALYSIS UA pH 6.5 5.0 - 8.0 03/22/2012 Normal [facility] URINALYSIS UA Spec Grav 1.038 <=1.030 03/22/2012 [facility] URINALYSIS UA Color Yello w *NA* (03/22/2012 14:40:00) Yellow 03/22/2012 NA [facility] CHEMISTRY POC A K 3.4 3.5 - 5.1 03/22/2012 LOW [facility] CHEMISTRY POC A Na 137 135 - 145 03/22/2012 [facility] CHEMISTRY POC A Hct 29.0 36.0 - 48.0 03/22/2012 [facility] CHEMISTRY POC A Ca Ion 1.08 1.16 - 1.30 03/22/2012 [facility] CHEMISTRY POC A LA 1.0 0.5 - 2.2 03/22/2012 [facility] CHEMISTRY POC A Glu 95 70 - 99 03/22/2012 [facility] CHEMISTRY POC A O2 Sat 99.0 95.0 - 100.0 03/22/2012 [facility] CHEMISTRY POC A BE -1 -2-2 - 2 03/22/2012 [facility] CHEMISTRY POC A PO2 151 80 - 100 03/22/2012 [facility] CHEMISTRY POC A PCO2 41 35 - 45 03/22/2012 [facility] CHEMISTRY POC A HCO3 24 22 - 26 03/22/2012 [facility] CHEMISTRY POC A pH 7.38 7.35 - 7.45 03/22/2012 Normal [facility] CHEMISTRY POC A Source ART 03/22/2012 [facility] CHEMISTRY POC A Temp 37.0 03/22/2012 [facility] HEMATOLOGY ASA Effect Plt 478 03/22/2012 NA [...] higher ARU values than ASA taken alone. [facility] HEMATOLOGY Plav Effect Plt 23 03/22/2012 NA [...] GP IIb/IIIa Inhibitor, e.g. ReoPro or Integrilin [facility] BLOOD BANK RESULTS RBC product Product available (03/22/2012 10:00:00) 03/22/2012 Normal [facility] BLOOD BANK RESULTS ABO/Rh A POS 03/22/2012 Unknown [facility] BLOOD BANK RESULTS Antibody Scrn Negative (03/22/2012 07:00:00) 03/22/2012 Normal [facility] CHEMISTRY Chloride Lvl 105 95 - 109 03/08/2012 Normal [facility] CHEMISTRY Calcium Lvl 9.0 8.5 - 10.5 03/08/2012 Normal [facility] CHEMISTRY CO2 26 24 - 32 03/08/2012 Normal [facility] CHEMISTRY Bili Total 0.5 0.2 - 1.3 03/08/2012 Normal [facility] CHEMISTRY AST 64 0 - 37 03/08/2012 [place] [facility] CHEMISTRY Total Protein 8.3 6.4 - 8.4 03/08/2012 Normal [facility] CHEMISTRY Alk Phos 109 39 - 136 03/08/2012 Normal [facility] CHEMISTRY Sodium Lvl 142 135 - 145 03/08/2012 Normal [facility] CHEMISTRY Glucose Lvl 89 70 - 99 03/08/2012 Normal <sup>6</sup>Interpretive Data: Adult ref erence range values reflect the clinical guidelines
of the [place] [employer]. [facility] CHEMISTRY Creatinine Lvl 0.9 0.5 - 1.4 03/08/2012 Normal [facility] CHEMISTRY BUN 10 7 - 22 03/08/2012 Normal [facility] CHEMISTRY ALT 65 0 - 65 03/08/2012 Normal [facility] CHEMISTRY Albumin Lvl 3.7 3.5 - 5.0 03/08/2012 Normal [facility] CHEMISTRY Potassium Lvl 3.7 3.5 - 5.1 03/08/2012 Normal [facility] CHEMISTRY A/G Ratio 0.8 0.7 - 1.6 03/08/2012 Normal [facility] CHEMISTRY AGAP 14.7 10.0 - 20.0 03/08/2012 Normal [facility] CHEMISTRY B/C Ratio 11 6 - 25 03/08/2012 Normal [facility] CHEMISTRY Globulin 4.6 2.0 - 4.0 03/08/2012 [place] [facility] HEMATOLOGY Large Plt Sligh t *ABN* (03/08/2012 14:45:00) None S een 03/08/2012 ABN [facility] HEMATOLOGY Basophils # 0.0 0.0 - 0.2 03/08/2012 Normal [facility] HEMATOLOGY Segs 55.0 45.0 - 75.0 03/08/2012 Normal [facility] HEMATOLOGY RBC Morph Alison l (03/08/2012 14:45:00) 03/08/2012 Normal [facility] HEMATOLOGY Plt Morph Alison l (03/08/2012 14:45:00) 03/08/2012 Normal [facility] HEMATOLOGY Monocytes # 0.6 0.0 - 0.8 03/08/2012 Normal [facility] HEMATOLOGY Eosinophils # 0.1 0.0 - 0.5 03/08/2012 Normal [facility] HEMATOLOGY Basophils 0.5 0.0 - 1.0 03/08/2012 Normal [facility] HEMATOLOGY Lymphocytes # 2.6 1.0 - 5.5 03/08/2012 [facility] HEMATOLOGY Segs-Bands # 4.0 1.5 - 8.1 03/08/2012 Normal [facility] HEMATOLOGY Eosinophils 1.4 0.0 - 4.0 03/08/2012 Normal [facility] HEMATOLOGY Lymphocytes 35.5 20.0 - 40.0 03/08/2012 Normal [facility] HEMATOLOGY Monocytes 7.6 2.0 - 12.0 03/08/2012 Normal [facility] HEMATOLOGY PTT 34.8 22.9 - 35.8 03/08/2012 Normal <sup>10</sup>Interpretive Data: Heparin Therapeutic Range: 57 - 92 Seconds [facility] HEMATOLOGY PT 14.7 12.0 - 14.7 03/08/2012 Normal [facility] HEMATOLOGY INR 1.15 0.85 - 1.17 03/08/2012 Normal <sup>8</sup>Interpretive Data: RECOMMEND ED RANGES FOR PROTIME INR:
2.0-3.0 for most medical and surgical thromboembolic states.
2.5-3.5 for artificial heart valves and recurrent embolism.

INR SHOULD BE USED ONLY FOR PATIENTS ON STABLE ANTICOAGULANT THERAPY. [facility] HEMATOLOGY RDW 13.2 11.5 - 14.5 03/08/2012 Normal [facility] HEMATOLOGY WBC 7.3 3.7 - 10.4 03/08/2012 Normal [facility] HEMATOLOGY MCHC 34.5 32.0 - 36.0 03/08/2012 Normal [facility] HEMATOLOGY RBC 4.62 4.20 - 5.40 03/08/2012 Normal [facility] HEMATOLOGY MCV 90.5 81.0 - 99.0 03/08/2012 Normal [facility] HEMATOLOGY MCH 31.3 27.0 - 31.0 03/08/2012 [facility] HEMATOLOGY Hgb 14.4 12.0 - 16.0 03/08/2012 Normal [facility] HEMATOLOGY Hct 41.8 36.0 - 48.0 03/08/2012 Normal [facility] HEMATOLOGY MPV 12.5 7.4 - 10.4 03/08/2012 [facility] HEMATOLOGY Platelet 120 133 - 450 03/08/2012 LOW [facility] Pathology Reports No Data Provided for This [...] cholecystectomy. Vincenzo Rosario MD On 02/16/2020 08:48:27; [id number] 02/16/2020 [facility] Chest 1 v for Placement DX PRO [...] visualized. Eduin Castañeda MD On 02/16/2020 05:29:40; [id number] 02/16/2020 [facility] Retroperitoneal Complete US Re port was redictated. [...] ultrasound. Jeison Copeland MD On 02/16/2020 16:56:42; [id number] PROCEDURE INFORMATION: Exam: US Retroperitoneal; Complete; Kidneys [...] ultrasound. Jeison Copeland MD On 02/16/2020 16:54:24; [id number] 02/16/2020 [facility] Brain wo contrast CT Radiation Dose CTDIVOL [...] lobes. Meagan Romero MD On 02/16/2020 01:54:04; [id number] 02/16/2020 [facility] Chest 1view DX PROCEDURE INFOR MATION: Exam: [...] findings. Jonas Rutledge MD On 02/16/2020 01:04:43; [id number] 02/16/2020 [facility] Hip 2/3 views uni w pelvis DX Patient Name: DIANE SIMEON : 1955; Age: 62 years y/o Female MR: [id number] Study: 2 view left hip 11/22/2017 9:52 [...] in the left hip. SL: HMUSPARE-PC 11/22/2017 [facility] Ext Lower Venous Doppler Bilat US Exam: [...] include: greater and lesser saphenous veins SL: [id number] 11/22/2017 [facility] Breast Mammo Scrn TYLER incl CAD MA [...] Mammographic views were obtained using digital acquisition. [employer] Version 1.3 was utilized for computer aided detection. FINDINGS: There are scattered fibroglandular densities in both breasts. Benign appearing densities are noted in both breasts. No significant masses, calcifications, or other findings are seen in either breast. IMPRESSION: BENIGN RECOMMENDATION:There is no mammographic evidence of malignancy. 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 This aids in establishing benignity. The patient should make additional efforts to locate her prior exams. An addendum will be made if additional films are provided. This exam was interpreted at [id number] for [facility]. Lemuel anguiano/perry:11/28/2017 08:04:21 [employer]acc[employer] Manager(s): Tessa Raymundo [facility] letter sent: BI-RADS 1/2 Mammogram BI-RADS: 2 Benign 11/17/2017 [facility] Abdomen complete US Patient Na me: DIANE DIGGS : 1955; Age: 61 years y/o Female MR: [id number] Study: Abdomen complete US 09/19/2016 3:00 PM [employer] Ordering Physician: Alexis Tim MD Clinical Indication: [...] calcification is present within the spleen. SL: [id number] 09/19/2016 [facility] Chest 1view DX EXAM: Chest 1vi ew DX DATE: 09/18/2016 2:37 PM [employer] INDICATION: Chest pain COMPARISON: 04/28/2016. IMPRESSION: The patient is rotated. Stable prominent cardiac silhouette and mediastinum. Tortuous atherosclerotic thoracic aorta. No focal consolidation, significant pleural effusion or pneumothorax. SL: [id number]-[id number] 09/18/2016 [facility] Brain wo contrast CT EXAM: CT BRAIN WITHOUT CONTRAST DATE: 09/18/2016 2:18 PM [employer] INDICATION: Altered level of consciousness ADDITIONAL INFORMATION [...] performed for complete assessment. SL: JNGUYEN-PC 09/18/2016 [facility] Abdomen RUQ US PROCEDURE: RIGH T UPPER [...] cholecystectomy. Pancreas not visualized. SL: [id number] 04/29/2016 [facility] Chest 1view DX EXAM: XR CHEST 1 [...] limits. IMPRESSION: No acute cardiopulmonary abnormality. SL: [id number] 04/28/2016 [facility] Consultation Notes No Data Provided for This Section Discharge Summaries No Data Provided for This Section History and Physicals No Data Provided for This Section Vital Signs Vital Sign Value Date Comments Source Respitory Rate 13 02/26/2020 [facility] Systolic (mm Hg) 112 02/26/2020 [facility] Diastolic (mm Hg) 53 02/26/2020 [facility] Respitory Rate 12 02/26/2020 [facility] Systolic (mm Hg) 114 02/26/2020 [facility] Diastolic (mm Hg) 61 02/26/2020 [facility] Respitory Rate 11 02/26/2020 [facility] Systolic (mm Hg) 107 02/26/2020 [facility] Diastolic (mm Hg) 70 02/26/2020 [facility] Temperature Oral (F) 98.1 F 02/26/2020 [facility] Temperature Oral (F) 97.8 F 02/26/2020 [facility] Temperature Oral (F) 98.8 F 02/23/2020 [facility] Heart Rate 65 02/18/2020 [facility] Heart Rate 66 02/18/2020 [facility] Heart Rate 68 02/18/2020 [facility] Height 152.4 cm 02/16/2020 [facility] BMI Calculated 25.44 02/16/2020 [facility] Weight 59.091 02/16/2020 [facility] Systolic (mm Hg) 127 10/19/2016 [facility] Diastolic (mm Hg) 82 10/19/2016 [facility] Respitory Rate 13 10/19/2016 [facility] Respitory Rate 17 10/19/2016 [facility] Systolic (mm Hg) 127 10/19/2016 [facility] Diastolic (mm Hg) 66 10/19/2016 [facility] Respitory Rate 16 10/19/2016 [facility] Systolic (mm Hg) 110 10/19/2016 [facility] Diastolic (mm Hg) 67 10/19/2016 [facility] Heart Rate 84 10/19/2016 [facility] Temperature Oral (F) 98.0 F 10/18/2016 [facility] Heart Rate 71 10/18/2016 [facility] BMI Calculated 35.33 10/18/2016 [facility] Weight 79.347 10/18/2016 [facility] Height 149.86 cm 10/18/2016 [facility] Systolic (mm Hg) 124 09/21/2016 [facility] Diastolic (mm Hg) 78 09/21/2016 [facility] Temperature Oral (F) 97.9 F 09/21/2016 [facility] Respitory Rate 14 09/21/2016 [facility] Heart Rate 77 09/21/2016 [facility] Systolic (mm Hg) 124 09/21/2016 [facility] Diastolic (mm Hg) 72 09/21/2016 [facility] Respitory Rate 5 09/21/2016 [facility] Systolic (mm Hg) 128 09/21/2016 [facility] Diastolic (mm Hg) 76 09/21/2016 [facility] Respitory Rate 16 09/21/2016 [facility] Heart Rate 79 09/21/2016 [facility] Heart Rate 74 09/21/2016 [facility] Temperature Oral (F) 98.3 F 09/21/2016 [facility] Temperature Oral (F) 98.1 F 09/21/2016 [facility] Weight 81.818 09/18/2016 [facility] BMI Calculated 36.43 09/18/2016 [facility] Height 149.86 cm 09/18/2016 [facility] Systolic (mm Hg) 128 04/29/2016 [facility] Diastolic (mm Hg) 60 04/29/2016 [facility] Respitory Rate 18 04/29/2016 [facility] Temperature Oral (F) 98.2 F 04/29/2016 [facility] Systolic (mm Hg) 125 04/29/2016 [facility] Diastolic (mm Hg) 65 04/29/2016 [facility] Temperature Oral (F) 98.3 F 04/29/2016 [facility] Respitory Rate 18 04/29/2016 [facility] Temperature Oral (F) 98.2 F 04/29/2016 [facility] Respitory Rate 20 04/29/2016 [facility] Systolic (mm Hg) 115 04/29/2016 [facility] Diastolic (mm Hg) 51 04/29/2016 [facility] Heart Rate 92 04/29/2016 [facility] Weight 81.818 04/29/2016 [facility] BMI Calculated 36.43 04/29/2016 [facility] Height 149.86 cm 04/29/2016 [facility] Respitory Rate 14 03/23/2012 [facility] Diastolic (mm Hg) 66 03/23/2012 [facility] Systolic (mm Hg) 112 03/23/2012 [facility] Respitory Rate 17 03/23/2012 [facility] Diastolic (mm Hg) 57 03/23/2012 [facility] Respitory Rate 15 03/23/2012 [facility] Systolic (mm Hg) 112 03/23/2012 [facility] Systolic (mm Hg) 112 03/23/2012 [facility] Diastolic (mm Hg) 62 03/23/2012 [facility] Temperature Oral (F) 97.1 F 03/23/2012 [facility] Temperature Oral (F) 97.1 F 03/23/2012 [facility] Temperature Oral (F) 97.1 F 03/23/2012 [facility] Heart Rate 100 03/22/2012 [facility] Height 149.86 cm 03/22/2012 [facility] Weight 90.909 03/22/2012 [facility] Height 149.86 cm 03/08/2012 [facility] Weight 90.909 03/08/2012 [facility] Encounters Location Location Details Encounter Type Encounter Number Reason For Visit Attending Provider ADM Date DC Date Status Source [facility] Inpatient [id number] [place] 03/22/2012 03/23/2012 Discharged [facility] Emergency [id number] Veda Grubbsqi 04/29/2016 04/29/2016 [facility] Inpatient [id number] Alexis Tim 09/18/2016 09/21/2016 [facility] Bedded Outpatient [id number] Perico Duenas 10/19/2016 10/19/2016 [facility] Outpatient [id number] Alexis Tim 11/17/2017 11/18/2017 [facility] Inpatient [id number] Felix Rock 02/16/2020 02/27/2020 [facility] Procedures Procedure Code Date Perfomer Comments Source Biopsy of liver [id number] [facility] section [id number] [facility] Esophagogastroduodenoscopy [id number] [facility] Removal of gallstones from liver [id number] [facility] Assessment and Plan Assessment and Plan Date [...] ER physician, based on this will consult automobile mechanic motor, planned for central line and initiation of [...]
--- OUTSIDE RECORDS SUMMARY | 2020-05-14 14:02 | XMS REPORT | Continuity of Care Document ---
Author Author [facility] t Organization [facility] Address [address] [place] [address] Phone Unavailable Care Team Providers Care Inspector Packager Name Role Phone MD Fantasma CHAN [facility] PCP DELORIS, Gail SANCHEZRIES Attphys Unavailable JOANIERGail AMBICA Attphys Unavailable Fantasma Rock Attphys Praful Tim Attphys Perico Duenas Attphys Champ Cidia Attphys DALEONIDAS, Gail JIRIES Admphys Unavailable Fantasma Rock Admphys Perico Duenas Admphys Praful Tim Admphys Payers Payer Name Policy Type Policy Number Effective Date Expiration Date S vinny [employer] [place] Ppo [id number] 2018 00:00:00 [facility] Problems Condition Name Condition Details Condition Category Status Onset Date Resolution Date Last Treatment Date Treating Clinician Comments Source [facility] Active 02/15/2020 [facility] Active 2020-02-15 00:00:00 [...] ANEURYSM LARGE LEFT CAVERNOUS ANEURYSM Active 09/16/2011 [facility] Diagnosis Active 2011-09-16 00:00:00 2012-03-22 14:06:00 [facility] Urinary tract infection Problem Active [facility] Septic shock Problem Active [facility] Altered mental status Problem Active [facility] Hepatic encephalopathy Problem Active [facility] Hepatic cirrhosis Problem Active [facility] Hypomagnesemia Problem Active [facility] Renal insufficiency Problem Active [facility] Anxiety (finding) Anxi ety (finding) Active Problem 02/28/2020 [facility] Problem Active 2020-02-28 22:38:20 [facility] Cerebrovascular accident (disorder) Cerebrovascular accident (disorder) Active Problem 02/28/2020 [facility] Problem Active 2020-02-28 22:38:20 [facility] History of cholecystectomy (situation) History of cholecystectomy (situation) Active Problem 02/28/2020 [facility] Problem Active 2020-02-28 22:38:20 [facility] Hypertensive disorder, systemic arterial (disorder) Hypertensive disorder, systemic arterial (disorder) Active Problem 02/28/2020 [facility] Problem Active 2020-02-28 22:38:20 [facility] Seizure (finding) Seiz ure (finding) Active Problem 02/28/2020 [facility] Problem Active 2020-02-28 22:38:20 [facility] History of cholecystectomy His tory of cholecystectomy Active Problem 03/25/2012 [facility] Problem Active 2012-03-25 08:12:43 [facility] HTN - Hypertension HTN - Hypertension Active Problem 03/25/2012 [facility] Problem Active 2012-03-25 08 :12: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 [facility] Diagnosis Active 2012-03-22 14:06:00 [facility] ALTERED MENTAL STATUS, UNSPECIFIED ALTERED MENTAL STATUS, UNSPECIFIED Active [facility] Diagnosis Active 2020-03-02 21:48:00 [facility] ACUTE AND SUBACUTE HEPATIC FAILURE WITHO ACUTE AND SUBACUTE HEPATIC FAILURE WITHO Active [facility] Diagnosis Active 2020-03-02 21:48:00 [facility] Encounter for screening mammogram for malignant neopla sm of breast Encounter for screening mammogram for malignant neoplasm of breast 11/29/2017 02/23/2018 [facility] Problem 2017-11-29 03:23:41 2017 13:55:01 2018-02-23 13:55:01 [facility] Discharge Diagnosis: Palpitations Discharge Diagnosis: Palpitations 04/29/2016 05/02/2016 [facility] Problem 2 05:00:00 2016-05-02 03:23:32 2016-05-02 03:23:32 [facility] Allergies, Adverse Reactions, Alerts Allergy Name Allergy Type Status Severity Reaction(s) Onset Date Inacti ve Date Treating Clinician Comments Source No Known Allergies DA Active U 2019-08-15 00:00:00 [facility] No Known Allergies DA Active U 2019-07-19 00:00:00 [facility] No Known Drug Intolerances DA Active U 2010-10-13 00:00:[address] [facility] No Known Medication Allergies No Known Medication Allergies Active [facility] Social History Social Habit Start Date Stop Date Quantity Comments Source Social History 2016-10-18 20:37:01 2016-10-18 20:37:01 [facility] Sex Assigned At 1955 00:00:00 1955 00:00:00 Female [facility] Medications Ordered Medication Name Filled Medication Name Start Date Stop Da te Current Medication? Ordering Clinician Indication Dosage Frequency Signature (SIG) Comments Components Source Levetiracetam 2020-02-27 02:00:00 No Notes: (Same as:Ismael) [facility] pantoprazole 40 MG Enteric Coated Tablet [Protonix] 02-25 23:15:00 Yes 40 mg = 1 tab, P O, Daily, # 30 tab, 0 Refill(s), Pharmacy: [facility] #[id number], 152.4, cm, 02/15/20 22:51:00 CDT, Height, 59.091, kg, 02/15/20 22:51:00 CDT, Weight [facility] kendra thiamine 100 mg oral tablet 2020-02-26 23:03:00 Yes 100 mg = 1 tab, PO, Daily, X 30 day, # 30 tab, 0 Refill(s), [id number], 152.4, cm, 02/15/20 22:51:00 CDT, Height, 59.091, kg, 02/15/20 22:51:00 CDT, Weight [facility] midodrine 5 mg oral tablet 2020-02-26 23:03:00 Yes 10 mg = 2 tab, PO, TID, # 180 tab, 0 Refill(s), [id number], 152.4, cm, 02/15/20 22:51:00 CDT, Height, 59.091, kg, 02/15/20 22:51:00 CDT, Weight [facility] Potassium Chloride 2020-02-26 13:55:00 No Notes: (Same as: K-Dur 20) "Do Not Crush" Give with food and full glass of water For patients unable to swallow tablet, dissolve in one half glass of water. Allow about 2 minutes for the tablets to disintegrate. Stir before giving to prepare slurry and administer. Please exclude Patient s with feeding tube less than 14 Albanian (Dobhoff, J-tube etc) and pediatric and patients. [facility] potassium phosphate-sodium phosphate 250 mg-280 mg-160 mg oral powder for reconstitution 2020-02-26 13:55:00 No Notes: (Same as: Phos-NaK) Each 1.5 gm pkt has 250mg phosphorous. Mix w/2.5oz water and stir. [facility] potassium phosphate 2020-02-26 13:55:00 No Notes: (Same as: K Phosphate.) Do not infuse phosphorous concurrently in the same line as TPN or IVF that contains calcium. For double lumen central lines, phosphorous may be infused in a separate lumen from TPN. 1 mMol phoshate has 1.47 mEq potassium Infuse over 4 hours [facility] sodium phosphate 2020-02-26 13:55:00 No Notes: Infuse over 4 hour. Do not infuse phosphorous concurrently in the same line as TPN or IVF that contains calcium. For double lumen central lines, phosphorous may be infused in a separate lumen from TPN. [facility] Magnesium Sulfate 2020-02-26 13:55:00 No Notes: WASTE: F/P - Sink; E - Municipal Trash Bin [facility] Magnesium Oxide 2020-02-26 13:55:00 No Notes: (Same as: Mag-Ox 400) Magnesium oxide [id number] elemental magnesium Dose=____mg magnesium oxide (___mg elemental magnesium) [facility] Calcium Gluconate 2020-02-26 13:55:00 No Notes: WASTE: F/P - Sink; E - Municipal Trash Bin [facility] Potassium Chloride 2020-02-25 13:49:00 No Notes: (Same as: KCL) Infuse no faster than 10 mEq/hr if given peripherally. [facility] sodium phosphate 2020-02-25 13:49:00 No Notes: Infuse over 4 hour. Do not infuse phosphorous concurrently in the same line as TPN or IVF that contains calcium. For double lumen central lines, phosphorous may be infused in a separate lumen from TPN. [facility] Angus shukla potassium phosphate 2020-02-25 13:49:00 No Notes: (Same as: K Phosphate.) Do not infuse phosphorous concurrently in the same line as TPN or IVF that contains calcium. For double lumen central lines, phosphorous may be infused in a separate lumen from TPN. 1 mMol phoshate has 1.47 mEq potassium Infuse over 4 hours [facility] potassium phosphate-sodium phosphate 250 mg-280 mg-160 mg oral powder for reconstitution 2020-02-25 13:49:00 No Notes: (Same as: Phos-NaK) Each 1.5 gm pkt has 250mg phosphorous. Mix w/2.5oz water and stir. [facility] Magnesium Sulfate 2020-02-25 13:49:00 No Notes: WASTE: F/P - Sink; E - Municipal Trash Bin [facility] Magnesium Oxide 2020-02-25 13:49:00 No Notes: (Same as: Mag-Ox 400) Magnesium oxide [id number] elemental magnesium Dose=____mg magnesium oxide (___mg elemental magnesium) [facility] Calcium Gluconate 2020-02-25 13:49:00 No Notes: Contains: calcium gluconate 20mg/mL NaCl 0.67% 50mL WASTE: F/P - Sink; E - Municipal Trash Bin [facility] Calcium Carbonate 500 MG Chewable Tablet 2020-02-25 13:49:00 No Notes: (Same As: Tums) Calcium Carbonate 500 mg = 200 mg elemental calcium Dose = mg calcium carbonate ( mg elemental calcium) [facility] D5W 500 mL 2020-02-25 11:13:00 No 500 mL, Rate: 100 ml/hr, Infuse over: 5 hr, Route: IV, Dosing Weight 59.091 kg, Total Volume: 500, Start date: 02/25/20 6:13:00 CDT, Duration: 30 day, Stop date: 03/26/20 6:12:00 CDT, 1.6, m2, 0 [facility] potassium phosphate 2020-02-25 11:11:00 No Notes: (Same as: K Phosphate.) Do not infuse phosphorous concurrently in the same line as TPN or IVF that contains calcium. For double lumen central lines, phosphorous may be infused in a separate lumen from TPN. 1 mMol phoshate has 1.47 mEq potassium Infuse over 4 hours [facility] Magnesium Sulfate 2020-02-25 11:11:00 No Notes: WASTE: F/P - Sink; E - Municipal Trash Bin [facility] potassium phosphate 2020-02-23 17:29:00 No Notes: (Same as: K Phosphate.) Do not infuse phosphorous concurrently in the same line as TPN or IVF that contains calcium. For double lumen central lines, phosphorous may be infused in a separate lumen from TPN. 1 mMol phoshate has 1.47 mEq potassium Infuse over 4 hours [facility] Lactulose 667 MG/ML Oral Solution 2020-02-21 18:00:00 No Notes: (Same as:Chronulac) [facility] Lactulose 667 MG/ML Oral Solution 2020-02-21 14:00:00 No Notes: (Same as:Chronulac) [facility] [place] Metronidazole 2020-02-20 19:00:00 No Notes: (Same as: Flagyl) Avoid alcohol. [facility] Sodium Chloride 0.9% IV 250 mL + octreotide 1,250 microgram 2020-02-19 12:00:00 No 250 mL, Ra te: 10 ml/hr, Infuse over: 25 hr, Route: IV, Dosing Weight 59.091 kg, Total Volume: 250, Start date: 02/19/20 7:00:00 CDT, Duration: 30 day, Stop date: 03/20/20 6:59:00 CDT, 1.6, m2 [facility] octreotide 1,250 microgram + Sodium Chloride 0.9% IV 248.75 mL 2020-02-19 11:50:00 No 248.75 mL, Rate: 10 ml/hr, Infuse over: 25 hr, Route: IV, Dosing Weight 59.091 kg, Total Volume: 250, Start date: 02/19/20 6:50:00 CDT, Duration: 30 day, Stop date: 03/20/20 6:49:00 CDT, 1.6, m2, 0 [facility] pantoprazole additive 80 mg + Sodium Chloride 0.9% IV 100 mL 2020-02-19 11:49:00 No Notes: For IV push reconstitute with 10 ml 0.9% sodium chloride and push over 2 minutes. (Same as: Protonix) [facility] Thiamine 2020-02-18 18:19:00 No Notes: (Mitchell shaffer As: Vitamin B1) [facility] Vitamin K 1 2020-02-18 18:18:00 No Notes: Same as: Vitamin K, Mephyton Combine FILTERED phytonadione injection (total 50 mg/5 mL)with Simple Syrup (45mL) in selvin bottle. Shake well prior to dispensing. Expiration: 90 days at [facility] Plavix 2020-02-18 14:00:00 No Notes: (Same As: Plavix) [facility] Folic Acid 2020-02-18 14:00:00 No Notes: (S laura as: Folvite) [facility] Vasopressin (RESIDENTIAL) 2020-02-17 23:56:00 No Notes: (Same As: Pitressin, Vasostrict) [facility] albumin human 25% intravenous solution 2020-02-17 23:00:00 No Notes: Lot #: Mfg: (Same as: Plasbumin-25) "blood product derivative" WASTE: F/P - Red; E -Red MEDICATION WASTE Product Size: 25 gm Product Wasted: ___ gm [facility] Lactulose 667 MG/ML Oral Solution 2020-02-17 22:00:00 No Notes: (Same as:Chronulac) [facility] Rocephin + sterile water 10 mL 2020-02-17 08:00:00 No Notes: (Same As: Rocephin). Use with 100 mL NS and infuse over 30 min MEDICATION WASTE Product Size: 1000 mg Product Wasted: ___ mg [facility] [place] Lactulose 667 MG/ML Oral Solution 2020-02-17 05:00:00 [...] over 2 minutes. (Same as: Protonix) [facility] Norepinephrine 2020-02-16 08:52:00 No Notes: Same as: Levophed. Administer by either central venous catheter or peripherally-inserted central catheter (PICC) line. Concentration: 0.032 mg / mL [facility] Norepinephrine 2020-02-16 08:36:00 No Notes: Same as: [...] Stop date: 02/16/20 3:13:00 CDT, 0 [facility] Dextrose 50% Syringe (D50W) 2020-02-16 07:35:00 No 12.5 gm, 25 mL, Route: IVP, Drug Form: INJ, Dosing Weight 59.091, kg, PRN, PRN Blood Glucose Results, Start date: 02/16/20 2:35:00 CDT, Duration: 30 day, Stop date: 03/17/20 2:34:00 CDT, 0 [facility] Glucagon 2020-02-16 07:35:00 No 1 mg, Route: IM, Drug form: PDR/INJ, PRN, Dosing Weight 59.091, kg, PRN Blood Glucose Results, Start date: 02/16/20 2:35:00 CDT, Duration: 30 day, Stop date: 03/17/20 2:34:00 CDT, 0 [facility] Ondansetron 2020-02-16 07:35:00 No Notes: (Same as: Dee) MEDICATION WASTE Product Size: 4 mg Product Wasted: ___ mg [facility] Melatonin 2020-02-16 07:35:00 No Notes: (Sa me as: Melatonin) [facility] Acetaminophen 2020-02-16 07:35:00 No Notes: Do not exceed 4 gm/day. (Same as: Tylenol) [facility] Lactated Ringers IV 1,000 mL 2020-02-16 07:35:00 No 1,000 mL, Rate: 75 ml/hr, Infuse over: 13.3 hr, Route: IV, Dosing Weight 59.091 kg, Total Volume: 1,000, Start date: 02/16/20 2:35:00 CDT, Duration: 30 day, Stop date: 03/17/20 2:34:00 CDT, 1.6, m2, 0 [facility] [place] Saline Flush 0.9% 2020-02-16 07:35:00 No Notes: (Same as: BD Posiflush) [facility] Ceftriaxone 2020-02-16 07:29:00 No Notes: (Same As: Rocephin). Use with 100 mL NS and infuse over 30 min MEDICATION WASTE Product Size: 1000 mg Product Wasted: ___ mg [facility] Hydralazine 2020-02-16 07:22:00 No Notes: (Same as: Apresoline) Push over 5 minutes [facility] Lactulose 2020-02-16 06:24:00 No Notes: Lactulose 300ml, Water for Irrigation 700ml - total volume = 1000ml [facility] Hydralazine 2020-02-16 06:12:00 No 10 mg, Route: IVP, ONCE, Dosing Weight 59.091, kg, Priority: STAT, Start date: 02/16/20 1:12:00 CDT, Stop date: 02/16/20 1:12:00 CDT [facility] Saline Flush 0.9% 2020-02-16 04:23:00 No Notes: (Same as: BD Posiflush) [facility] Sodium Chloride 0.154 MEQ/ML Injectable Solution 2016-10-19 14:5 5:00 No 1,000 mL, Rate: 25 ml/hr, In fuse over: 40 hr, Route: IV, Dosing Weight 79.347 kg, Total Volume: 1,000, Start date: 10/19/16 8:55:00 [employer], Duration: 1 day, Stop date: 10/20/16 8:54:00 [employer] orizeeshan [facility] Lactulose 667 MG/ML Oral Solution [Generlac] 2016-10-18 21:01:00 Yes 0 Refill(s) [facility] spironolactone 50 mg oral tablet 2016-10-18 21:00:00 Yes 50 mg = 1 tab, PO, Daily, # 30 tab, 1 Refill(s) [facility] Streptococcus pneumoniae serotype 1 caps ular antigen diphtheria [id number] protein conjugate vaccine / Streptococcus pneumoniae serotype 14 capsular antigen diphtheria [id number] protein conjugate vaccine / Streptococcus pneumoniae serotype 18C capsular antigen d 2016-09-21 17:30:00 No Notes: Lightly roll vial (DO NOT SHAKE) before administration. (Same as: Prevnar 13) [facility] ferrous sulfate 325 mg oral enteric coated tablet 2016-09-21 14:28:00 Yes 325 mg = 1 tab, PO, Daily, # 30 tab, 0 Refill(s ) [facility] [place] pantoprazole 40 mg oral enteric coated tablet 2016-09-21 14:26:0 0 Yes 40 mg = 1 tab, PO, Before Dinner, # 30 tab, 0 Refill(s) [facility] levofloxacin 250 mg oral tablet 2016-09-21 14:26:00 Yes 500 mg = 2 tab, PO, [id number], X 5 day, # 10 tab, 0 Refill(s) [facility] [place] Lactulose 667 MG/ML Oral Solution 2016-09-21 14:26:00 Yes 10 gm = 15 mL, PO, BID, X 14 day, # 420 mL, 0 Refill(s) [facility] Levetiracetam 500 MG Oral Tablet [Keppra] 2016-09-21 14:26:00 Yes 500 mg = 1 tab, PO, Q12H, # 60 tab, 0 Refill(s) [facility] Folic Acid 1 MG Oral Tablet 2016-09-21 14:26:00 Yes 1 mg = 1 tab, PO, Daily, # 30 tab, 0 Refill(s) Marcia l aGge Sodium Chloride 0.154 MEQ/ML Injectable Solution 2016-09-21 13:4 7:00 No 1,000 mL, Rate: 25 ml/hr, In fuse over: 40 hr, Route: IV, Dosing Weight 81.818 kg, Total Volume: 1,000, Start date: 09/21/16 7:47:00 [employer], Duration: 1 day, Stop date: 09/22/16 7:46:00 [employer] Meme [facility] Levetiracetam 500 MG Oral Tablet [Keppra] 2016-09-21 03:00:00 No Notes: (Same as:Keppra) [facility] Lactulose 667 MG/ML Oral Solution 2016-09-20 23:00:00 No Notes: (Same as:Chronulac) [facility] [place] Levetiracetam 2016-09-20 16:20:00 No Notes: Same as Keppra Mix with 100 mL NS, LR or D5W MEDICATION WASTE Product Size: 500 mg Product Wasted: ___ mg [facility] Lisinopril 2016-09-20 15:00:00 No Notes: (Same as: [...] Total Volume: 1,000, Start date: 09/18/16 20:32:00 [employer], Duration: 30 day, Stop date: 10/18/16 20:31:00 [employer] Me formanzeeshan [facility] clopidogrel 75 MG Oral Tablet [Plavix] 2016-09-19 00:31:00 Yes 75 mg = 1 tab, PO, Daily, 0 Refill(s) Marcia [facility]ayer [facility] lisinopril 5 mg oral tablet 2016-09-19 00:31:00 Yes 5 mg = 1 tab, PO, Daily, 0 Refill(s) [facility] Sodium Chloride 0.154 MEQ/ML Injectable Solution 2016-09-18 23:5 3:00 No 1,000 mL, Infuse Over: 1 hr, Route: IV, ONCE, Priority: STAT, Dosing Weight 81.818 kg, Start date: 09/18/16 17:53:00 [employer], Duration: 1 doses or times, Stop date: 09/18/16 17:53:[address] [facility] [address] [facility] Her arredondo Versed 2016-09-18 23:35:00 No 5 mg, Route: IVP, ONCE, Dosing Weight 81.818, kg, Priority: STAT, Start date: 09/18/16 17:35:00 [employer], Stop date: 09/18/16 17:35:00 [facility] Sodium Chloride 0.154 MEQ/ML Injectable Solution 2016-09-18 20:3 7:00 No 1,000 mL, 1,000 ml/hr, Infus e Over: 1 hr, Route: IV, ONCE, Priority: STAT, Dosing Weight 81.818 kg, Start date: 09/18/16 14:37:00 [employer], Duration: 1 doses or times, Stop date: 09/18/16 14:37:00 [employer] [facility] Sulfamethoxazole 800 MG / Trimethoprim 160 MG Oral Tablet [B actrim] 2016-04-29 09:28:00 Yes 1 tab, PO, BID, X 7 day, # 1 4 tab, 0 Refill(s) [facility] Alprazolam 0.5 MG Oral Tablet [Xanax] 2016-04-29 09:27:00 Y es 0.5 mg = 1 tab, PO, Q8H, PRN Anxiety, X 7 day, # 21 tab, 0 Refill(s) [facility] Sodium Chloride 0.154 MEQ/ML Injectable Solution 2016-04-29 06:0 1:00 No 1,000 mL, 2,000 ml/hr, Infus e Over: 30 minutes, Route: IV, 1,000, Drug form: INJ, ONCE, Priority: STAT, Dosing Weight 81.818 kg, Start date: 04/29/16 1:01:00 CDT, Duration: 1 doses or times, Stop date: 04/29/16 1:01:00 CDT [facility] Saline Flush 0.9% 2016-04-29 02:29:00 No Notes: (Same as: BD Posiflush) [facility] heparin 2012-03-23 21:00:00 No Jhon Bhavik Nava 5,000 unit, 1 mL, Route: SUB-Q, Drug form: INJ, Q12H, Start date: 03/23/12 16:00:00, Duration: 30 day, Stop date: 04/22/12 4:00:00 [facility] aspirin 325 mg tablet 2012-03-23 14:00:00 No Jhon Flo el Nava 325 mg, 1 tab, Route: PO, Drug form: TAB, Daily, Start date: 03/23/12 9:00:00, Duration: 30 day, Stop date: 04/21/12 9:00:00 [facility] Plavix 2012-03-23 14:00:00 No Jhon Bhavik Nava [...] a day x 2 days, then stop [facility] Gela nn Pepcid 20 mg oral tablet 2012-03-23 13:36:53 Yes Aurea Thayer Floyd 20 mg, 1 tab, PO, BID, 24 tab, Substitution Allowed [facility] Plavix 75 mg oral tablet 2012-03-23 12:00:00 Yes Aurea Thayer Floyd 75 mg, 1 tab, PO, Daily, 30 tab, Substitution Allowed, TAB [facility] aspirin 325 mg tablet 2012-03-23 11:59:58 Yes Aurea Thayer Floyd 325 mg, 1 tab, PO, Daily, 30 tab, Substitution Allowed, TAB [facility] Vicodin ES 7.5/750 oral tablet 2012-03-23 11:59:44 Yes Aurea Reedkman 1-2 tab, PO, Q4-6H, PRN, 30 tab, Pain, S ubstitution Allowed, Soft Stop, TAB [facility] dexamethasone 2012-03-23 11:00:00 No Jeromy L Day 4 mg, 1 mL, Route: IV, Drug form: INJ, Q6H, Start date: 03/23/12 6:00:00, Duration: 30 day, Stop date: 04/22/12 0:00:00 [facility] potassium phosphate + Sodium Chloride 0.9% IV 250 mL 03-23 08:30:00 No Jeromy L Day 18 mmol, 6 mL, R oute: IV, ONCE, Start date: 03/23/12 3:30:00, Stop date: 03/23/12 3:30:00 [facility] 2012-03-23 08:00:00 No Jeromy L Day 2 gm, 50 mL, Route: IVPB, Drug form: INJ, ONCE, Start date: 03/23/12 3:00:00, Stop date: 03/23/12 3:00:00 [facility] senna 8.6 mg oral tablet 2012-03-23 02:00:00 No Jhon Bhavik Nava 8.6 mg, 1 tab, Route: PO, Drug Form: TAB, Bedtime, Start date: 03/22/12 21:00:00, Duration: 30 day, Stop date: 04/20/12 21:00:00 [facility] hydrALAZINE 2012-03-22 20:18:00 No Jhon Bhavik Nava 20 mg, 1 mL, Route: IV, Drug form: INJ, Q2H, PRN Elevated BP, Start date: 03/22/12 15:18:00, Duration: 30 day, Stop date: 04/21/12 15:17:00 [facility] insulin regular human recombinant 100 units/mL injectable so lution 2012-03-22 19:59:00 No Jhon Bhavik Nava 7 unit, 0.07 mL, Route: SUB-Q, Drug form: SOLN, PRN, PRN Abnormal Lab Result, Start date: 03/22/12 14:59:00, Duration: 30 day, Stop date: 04/21/12 14:58:00 [facility] Dextrose 50% Syringe 2012-03-22 19:59:00 No Jhon Christiano l Nava 6.25 gm, 12.5 mL, Route: IVP, Drug Form: INJ, PRN, PRN Abnormal Lab Result, Start date: 03/22/12 14:59:00, Duration: 30 day, Stop date: 04/21/12 14:58:00 [facility] labetalol 2012-03-22 19:28:00 No Jhon Bhavik Nava 10 mg, 2 mL, Route: IVP, Drug form: INJ, Q1H, PRN Hypertension, Start date: 03/22/12 14:28:00, Duration: 30 day, Stop date: 04/21/12 13:28:00 [facility] senna 8.6 mg oral tablet 2012-03-22 19:11:00 No Jhon Bhavik Nava 1 tab, Route: PO, Drug Form: TAB, Bedtime, PRN Constipation, Start date: 03/22/12 14:11:00, Duration: 30 day, Stop date: 04/21/12 14:10:00 [facility] hydromorphone 2012-03-22 17:51:00 No Afshan Mata El 0.5 mg, 0.25 mL, Route: IVP, Drug form: INJ, Q5Min, PRN Pain Score 4-6, Start date: 03/22/12 12:51:00, Duration: 5 doses or times, Stop date: 03/23/12 0:00:00 [facility] ondansetron 2012-03-22 17:51:00 No Afshan Mata El 4 mg, 2 mL, Route: IVP, Drug form: INJ, ONCE, PRN Nausea & Vomiting, Start date: 03/22/12 12:51:00 [facility] flumazenil 2012-03-22 17:51:00 No Afshan Mata El 0.2 mg, 2 mL, Route: IVP, Drug form: INJ, PRN, PRN Benzodiazepine Reversal, Initial dose, Start date: 03/22/12 12:51:00, Duration: 30 day, Stop date: 04/21/12 12:50:00 [facility] naloxone 2012-03-22 17:51:00 No Afshan Mata [place] 0.04 mg, 0.1 mL, Route: IVP, Drug form: INJ, Q2MIN, PRN Narcotic Reversal, Start date: 03/22/12 12:51:00, Duration: 8 doses or times, Stop date: 03/23/12 0:00:00 [facility] Plavix 2012-03-22 17:39:00 No Domingo Barth 300 mg, 1 tab, Route: PO, Drug form: TAB, ONCE, Priority: NOW, Start date: 03/22/12 12:39:00, Duration: 1 doses or times, Stop date: 03/22/12 12:39:00 [facility] metoclopramide 2012-03-22 14:59:00 No Prasad shaffer IV 10 mg, 2 mL, Route: IV, Drug form: INJ, ONCE, Priority: NOW, Start date: 03/22/12 9:59:00, Stop date: 03/22/12 9:59:00 [facility] [place] [facility] 2012-03-22 14:00:00 No Jhon Gutierres Nava 5,000 unit, 1 mL, Route: SUB-Q, Drug form: INJ, Q12H, Start date: 03/22/12 9:00:00, Duration: 30 day, Stop date: 04/20/12 21:00:00 Zbigniew byers [place] Saline Flush 0.9% 2012-03-22 14:00:00 No Miguel [...] Duration: 30 day, Stop date: 04/20/12 21:00:00 [facility] lisinopril 2012-03-22 14:00:00 No Migueledmund Cornejo Abdunnur 20 mg, 1 tab, Route: PO, Drug form: TAB, Daily, Start date: 03/22/12 9:00:00, Duration: 30 day, Stop date: 04/20/12 9:00:00 Marcia Almonte Plavix 2012-03-22 14:00:00 No Jhon Rossiel Nava 75 mg, 1 tab, Route: PO, Drug form: TAB, Daily, Start date: 03/22/12 9:00:00, Duration: 30 day, Stop date: 04/20/12 9:00:00 Marcia Almonte aspirin 325 mg tablet 2012-03-22 14:00:00 No Jhon Flo el Nava 325 mg, 1 tab, Route: PO, Drug form: TAB, Daily, Start date: 03/22/12 9:00:00, Duration: 30 day, Stop date: 04/20/12 9:00:00 [facility] Saline Flush 0.9% 2012-03-22 13:28:00 No Miguel Leon bdunnur 5 ml, Route: IVP, Drug Form: INJ, PRN, PRN Line Flush, Start date: 03/22/12 8:28:00, Duration: 30 day, Stop date: 04/21/12 8:27:00 [facility] Sodium Chloride 0.9% IV 1,000 mL 2012-03-22 13:28:00 No Michelle Ramirez 1,000 mL, Rate: 50 m l/hr, Infuse over: 20 hr, Route: IV, Dosing Weight 90.909 kg, Total Volume: 1,000, Start date: 03/22/12 8:28:00, Duration: 30 day, Stop date: 04/21/12 8:27:00 [facility] ondansetron 2012-03-22 13:28:00 No Miguel Ariasu r 4 mg, 2 mL, Route: IVP, Drug form: INJ, Q8H, PRN Nausea & Vomiting, Start date: 03/22/12 8:28:00, Duration: 30 day, Stop date: 04/21/12 8:27:00 [facility] acetaminophen-hydrocodone 325 mg-5 mg oral tablet 13:28:00 No Miguel Dickson 2 tab, Rou te: PO, Drug Form: TAB, Q4H, PRN Pain Score 4-6, Start date: 03/22/12 8:28:00, Duration: 30 day, Stop date: 04/21/12 8:27:00 [facility] morphine Sulfate 2012-03-22 13:28:00 No Miguel Pimentel dunnur 2 mg, 1 mL, Route: IVP, Drug form: INJ, Q1H, PRN Pain Score 7-10, Start date: 03/22/12 8:28:00, Duration: 30 day, Stop date: 04/21/12 8:27:00 [facility] Plavix 2012-03-22 13:11:00 No Domingo Barth 300 mg, Route: PO, Drug form: TAB, ONCE, Start date: 03/22/12 8:11:00, Duration: 1 doses or times, Stop date: 03/22/12 8:11:00 [facility] cefazolin 2012-03-22 11:22:00 No Miguel Dickson 2 gm, 100 mL, Route: IVPB, Drug form: INJ, PRE OP, Priority: STAT, Start date: 03/22/12 6:22:00, Duration: 1 day, Stop date: 03/23/12 6:21:00 [facility] Plavix 75 mg oral tablet 2012-03-14 11:47:00 No Aurea L Floyd 75 mg, 1 tab, PO, Daily, 30 tab, Substitution Allowed, TAB [facility] Aspirin Low Dose 81 mg oral tablet 2012-03-08 20:53:35 No 81 mg, 1 tab, PO, Daily, Substitution Allowed [facility] Vicodin ES 7.5/750 oral tablet 2012-03-08 20:51:46 No Aureaeliud Suarezan 1-2 tab, PO, Q4-6H, PRN, 30 tab, Pain, Substitution Allowed, Sof t [facility] 2012-03-08 20:49:24 Yes Miguel Cornejo Abdunnur 20 mg, PO, Daily, Substitution Allowed [facility] arredondo aspirin 325 mg tablet 2011-03-22 11:48:00 No Aurea L Floyd 325 mg, 1 tab, PO, Daily, 30 tab, Substitution Allowed, TAB [facility] Ferrous Sulfate Ferrous Sulfate Yes 325 Daily [facility] Folic Acid Folic Acid Yes 1 Daily [facility] Furosemide Furosemide Yes 40 Daily [facility] Lactulose Lactulose Yes 15 Three Times A Day [facility] Levetiracetam Levetiracetam Yes 500 Twice A Day [facility] Midodrine Hcl Midodrine Hcl Yes 10 Three Times A Day [facility] Pantoprazole Sodium (Protonix) 40 Mg TABLET. Pantopr azole Sodium (Protonix) 40 Mg TABLET. Yes 40 Daily [facility] Rifaximin (Xifaxan) 550 Mg TABLET Rifaximin (Xifaxan) 550 Mg TABLET Yes 550 Daily [facility] Spironolactone Spironolactone Yes 25 Daily [facility] Thiamine Hcl (Vitamin B-1) 100 Mg TABLET Thiamine Hcl (Vitamin B-1) 100 Mg TABLET Yes 100 Daily [facility] Vital Signs Vital Name Observation Time Observation Value Comments Source Body Temperature 2020-03-20 15:07:00 97.6 [degF] [facility] Weight 2020-03-19 00:31:00 189.01 [lb_av] [facility] BMI (Body Mass Index) 2020-03-19 00:31:00 36.9 kg/m2 [facility] Body Temperature 2020-03-08 07:39:00 98.0 [degF] [facility] Weight 2020-03-08 00:22:00 189 [lb_av] [facility] BMI (Body Mass Index) 2020-03-08 00:22:00 36.9 kg/m2 [facility] Respitory Rate 2020-02-26 22:00:00 [facility] [place] Systolic (mm Hg) 2020-02-26 22:00:00 Joel rial [place] Diastolic (mm Hg) 2020-02-26 22:00:00 Mem o[facility] [place] Respitory Rate 2020-02-26 21:00:00 [facility] [place] Systolic (mm Hg) 2020-02-26 21:00:00 Joel rial [place] Diastolic (mm Hg) 2020-02-26 21:00:00 [facility] Respitory Rate 2020-02-26 20:00:00 [facility] [place] Systolic (mm Hg) 2020-02-26 20:00:00 Joel rial [place] Diastolic (mm Hg) 2020-02-26 20:00:00 [facility] Temperature Oral (F) 2020-02-26 09:00:00 98.1 F [facility] [place] Temperature Oral (F) 2020-02-26 01:00:00 97.8 F [facility] [place] Temperature Oral (F) 2020-02-23 09:00:00 98.8 F [facility] [place] Heart Rate 2020-02-18 11:46:00 [facility] [place] Heart Rate 2020-02-18 09:35:00 [facility] [place] Heart Rate 2020-02-18 07:30:00 [facility] Height 2020-02-16 03:51:00 152.4 cm [facility] [place] BMI Calculated 2020-02-16 03:51:00 [facility] Weight 2020-02-16 03:51:00 [facility] [place] Systolic (mm Hg) 2016-10-19 17:38:00 Joel rial [facility] Diastolic (mm Hg) 2016-10-19 17:38:00 Mem orial [place] Respitory Rate 2016-10-19 17:38:00 [facility] [place] Respitory Rate 2016-10-19 17:23:00 [facility] [place] Systolic (mm Hg) 2016-10-19 17:23:00 Joel rial [facility] Diastolic (mm Hg) 2016-10-19 17:23:00 Mem o[facility] [place] Respitory Rate 2016-10-19 17:08:00 [facility] Systolic (mm Hg) 2016-10-19 17:08:00 Joel rial [place] Diastolic (mm Hg) 2016-10-19 17:08:00 [facility] [place] Heart Rate 2016-10-19 14:53:00 [facility] Temperature Oral (F) 2016-10-18 20:38:00 98.0 F [facility] Heart Rate 2016-10-18 20:38:00 [facility] BMI Calculated 2016-10-18 20:38:00 [facility] [place] Weight 2016-10-18 20:38:00 [facility] Height 2016-10-18 20:38:00 149.86 cm [facility] Systolic (mm Hg) 2016-09-21 17:17:00 Joel rial [facility] Diastolic (mm Hg) 2016-09-21 17:17:00 Mem [facility] [place] Temperature Oral (F) 2016-09-21 17:17:00 97.9 F [facility] Respitory Rate 2016-09-21 17:17:00 [facility] [place] Heart Rate 2016-09-21 17:17:00 [facility] [place] Systolic (mm Hg) 2016-09-21 14:42:00 Joel rial [place] Diastolic (mm Hg) 2016-09-21 14:42:00 Mem [facility] [place] Respitory Rate 2016-09-21 14:42:00 [facility] [place] Systolic (mm Hg) 2016-09-21 14:27:00 Joel rial [place] Diastolic (mm Hg) 2016-09-21 14:27:00 [facility] [place] Respitory Rate 2016-09-21 14:27:00 [facility] [place] Heart Rate 2016-09-21 13:52:00 [facility] [place] Heart Rate 2016-09-21 13:02:00 [facility] Temperature Oral (F) 2016-09-21 13:02:00 98.3 F [facility] [place] Temperature Oral (F) 2016-09-21 10:04:00 98.1 F [facility] Weight 2016-09-18 20:32:00 [facility] BMI Calculated 2016-09-18 20:32:00 [facility] [place] Height 2016-09-18 20:32:00 149.86 cm [facility] Systolic (mm Hg) 2016-04-29 10:27:00 Joel rial [facility] Diastolic (mm Hg) 2016-04-29 10:27:00 [facility] [place] Respitory Rate 2016-04-29 10:27:00 [facility] [place] Temperature Oral (F) 2016-04-29 10:27:00 98.2 F [facility] Systolic (mm Hg) 2016-04-29 09:20:00 Joel [facility] Diastolic (mm Hg) 2016-04-29 09:20:00 [facility] [place] Temperature Oral (F) 2016-04-29 09:20:00 98.3 F [facility] [place] Respitory Rate 2016-04-29 09:20:00 [facility] [place] Temperature Oral (F) 2016-04-29 07:20:00 98.2 F [facility] [place] Respitory Rate 2016-04-29 07:20:00 [facility] [place] Systolic (mm Hg) 2016-04-29 07:20:00 Joel rial [facility] Diastolic (mm Hg) 2016-04-29 07:20:00 Mem orial [place] Heart Rate 2016-04-29 02:28:00 [facility] Weight 2016-04-29 02:28:00 [facility] [place] BMI Calculated 2016-04-29 02:28:00 [facility] Height 2016-04-29 02:28:00 149.86 cm [facility] Respitory Rate 2012-03-23 17:00:00 [facility] [place] Diastolic (mm Hg) 2012-03-23 16:00:00 Mem [facility] Systolic (mm Hg) 2012-03-23 16:00:00 Joel [facility] Respitory Rate 2012-03-23 16:00:00 [facility] Diastolic (mm Hg) 2012-03-23 15:00:00 [facility] [place] Respitory Rate 2012-03-23 15:00:00 [facility] [place] Systolic (mm Hg) 2012-03-23 15:00:00 Joel rial [place] Systolic (mm Hg) 2012-03-23 14:00:00 Joel rial [facility] Diastolic (mm Hg) 2012-03-23 14:00:00 Mem orial [place] Temperature Oral (F) 2012-03-23 09:00:00 97.1 F [facility] Temperature Oral (F) 2012-03-23 05:00:00 97.1 F [facility] Temperature Oral (F) 2012-03-23 01:00:[address] [facility] Heart Rate 2012-03-22 11:45:00 [facility] [place] Height 2012-03-22 11:45:[address] [facility] [place] Weight 2012-03-22 11:45:00 [facility] [place] Height 2012-03-08 20:19:[address] [facility] [place] Weight 2012-03-08 20:19:00 [facility] Procedure Date / Time Performed Performing Clinician Ginger edmund Computed tomography of brain without radiopaque contrast 2020-03 00:00:00 [facility] Computed tomography angiography of brain 2020-03-08 00:00:00 [facility] Computed tomography of abdomen and pelvis with contrast 00:00:00 [facility] CT angiography of neck 2020-03-08 00:00:00 [facility] Biopsy of liver [facility] section [facility] n Esophagogastroduodenoscopy [facility] Removal of gallstones from liver [facility] Plan of Care Planned Activity Planned Date Details Comments Source Instructions Anemia [facility] Instructions Cirrhosis [facility] Instructions Confusion [facility] Encounters Start Date/Time End Date/Time Encounter Type Admission Type Attendi [facility] Care Department Encounter ID Source 2020-03-15 11:08:00 2020-03-20 18:25:00 Discharged Inpatient 1 GERRILEONIDASBOBO [facility] [id number] [facility] 2020-03-08 00:41:00 2020-03-08 08:30:00 Departed Emergency Room 1 SYLVIA JAQUEZ [facility] [id number] [facility] 2020-02-15 22:38:15 2020-02-26 19:00:00 Outpatient [place] [id number] 2020-02-16 02:53:00 2020-02-15 22:38:00 Inpatient E [facility] [id number] [facility] 2017-11-22 08:30:00 2017-11-22 08:30:00 Outpatient [facility] [id number] [facility] 2017-11-17 12:35:00 2017-11-17 23:59:00 [facility]chell[facility] [id number] 2016-10-19 07:49:00 2016-10-19 11:51:00 Outpatient Yulissa Perico M E SE [id number] 2016-09-18 14:17:00 2016-09-21 12:48:00 Outpatient [place] [facility] [id number] 2016-04-28 21:22:00 2016-04-29 05:30:00 Outpatient Kamila Cideligio Deangladys [facility] [id number] Results Test Description Test Time Test Comments Results Result Comments Source Blood leukocytes automated count (number/volume) 2020-03-20 05:50:00 Test Item White Blood Count (test code = 6690-2) 4.21 4.8-10.8 [facility] automated count (number/volume)2020-03-20 05:50:00* Test Item Value Reference Range Interpretation Comments Red Blood Count (test code = 789-8) 3.03 3.6-5.1 [facility] hemoglobin measurement (moles/volume)2020-03-20 05:50:00* Test Item Value Reference Range Interpretation Comments Hemoglobin (test code = 25046-7) 9.1 12.0-16.0 [facility] CenterAutomated blood hematocrit (volume fraction)2020-03-20 05:50:00* Test Item Value Reference Range Interpretation Comments Hematocrit (test code = 4544-3) 29.3 34.2-44.1 [facility] CenterAutomated erythrocyte mean corpuscular [id number] 05:50:00* Test Item Value Reference Range Interpretation Comments Mean Corpuscular Volume (test code = 787-2) 96.7 81-99 [facility] CenterAutomated erythrocyte mean corpuscular hemoglobin (mass per erythrocyte)2020-03-20 05:50:00* Test Item Value Reference Range Interpretation Comments Mean Corpuscular Hemoglobin (test code = 785-6) 30.0 28-32 [facility] CenterAutomated erythrocyte mean corpuscular hemoglobin concentration measurement (mass/volume)2020-03-20 05:50:00* Test Item Value Reference Range Interpretation Comments Mean Corpuscular Hemoglobin Concent (test code = 786-4) 31.1 31-35 [facility] CenterRDW [id number]-[id number] 05:50:00* Test Item Value Reference Range Interpretation Comments Red Cell Distribution Width (test code = 67953-1) 16.5 11.7 -14.4 [facility]Aut[facility]ed [facility] platelet count (count/volume)2020-03-20 05:50:00* Test Item Value Reference Range Interpretation Comments Platelet Count (test code = 777-3) 40 140-360 Results repeated and called to OK GAYLE at 0633 on 03/20/20 by Valdez george Read back and verified.[facility] CenterAutdu[facility] hospitaled blood segmented neutrophil count as percentage of total tgvwofvvud1900-75-43 05:50:00 * Test Item Value Reference Range Interpretation Comments Neutrophils (%) (Auto) (test code = 15559-0) 47.3 38.7-80.0 [facility] CenterAutomated blood lymphocyte count as percentage ot total ayhcwdcerx6342-98-78 05:50:00* Test Item Value Reference Range Interpretation Comments Lymphocytes (%) (Auto) (test code = 736-9) 35.6 18.0-39.1 [facility]Aut[facility]ed blood monocyte count as percentage of total haofdlqedn9995-39-16 05:50:00* Test Item Value Reference Range Interpretation Comments Monocytes (%) (Auto) (test code = 5905-5) 9.5 4.4-11.3 [facility] CenterAutomated blood eosinophil count as percentage of total jlrootzxbm9992-44-45 05:50:00* Test Item Value Reference Range Interpretation Comments Eosinophils (%) (Auto) (test code = 713-8) 6.4 0.0-6.0 [facility] CenterAut[facility] hospitaled blood basophil count as percentage of total thdajtkazm6467-57-17 05:50:00* Test Item Value Reference Range Interpretation Comments Basophils (%) (Auto) (test code = 706-2) 0.7 0.0-1.0 [facility] CenterFluoroscopic procedure less than one hour [id number] 05:50:00* Test Item Value Reference Range Interpretation Comments IM GRANULOCYTES % (test code = IM GRANULOCYTES %) 0.5 0.0- 1.0 [facility] CenterAut[facility] hospitaled blood neutrophil count 2020-03-20 05:50:00* Test Item Value Reference Range Interpretation Comments Neutrophils # (Auto) (test code = 751-8) 2.0 2.1-6.9 [facility] CenterBlood lymphocytes count (number/volume) 2020-03-20 05:50:00* Test Item Value Reference Range Interpretation Comments Lymphocytes # (Auto) (test code = 25734-5) 1.5 1.0-3.2 [facility] CenterBlood monocytes automated count (number/volume)2020-03-20 05:50:00* Test Item Value Reference Range Interpretation Comments Monocytes # (Auto) (test code = 742-7) 0.4 0.2-0.8 [facility] CenterAutomated blood eosinophil count 2020-03-20 05:50:00* Test Item Value Reference Range Interpretation Comments Eosinophils # (Auto) (test code = 711-2) 0.3 0.0-0.4 [facility] CenterAutomated blood basophil count (count/volume)2020-03-20 05:50:00* Test Item Value Reference Range Interpretation Comments Basophils # (Auto) (test code = 704-7) 0.0 0.0-0.1 [facility] CenterFluoroscopic procedure less than one hour flefjggi9804-50-31 05:50:00* Test Item Value Reference Range Interpretation Comments Absolute Immature Granulocyte (auto (sophia t code = Absolute Immature Granulocyte (auto) 0.02 0-0.1 [facility] CenterAmmonia [id number]-gXwo0059-52-07 05:50:00* Test Item Value Reference Range Interpretation Comments Ammonia (test code = 97414-8) 96 31-123 [facility] sodium measurement (moles/volume)2020-03-19 05:30:00* Test Item Value Reference Range Interpretation Comments Sodium Level (test code = 2951-2) 141 136-145 [facility] plasma potassium measurement (moles/volume)2020-03-19 05:30:00* Test Item Value Reference Range Interpretation Comments Potassium Level (test code = 2823-3) 4.4 3.5-5.1 [facility] or plasma chloride measurement (moles/volume)2020-03-19 05:30:00* Test Item Value Reference Range Interpretation Comments Chloride Level (test code = 2075-0) 113 98-107 [facility] or plasma carbon dioxide, total measurement (moles/volume)2020-03-19 05:30:00* Test Item Value Reference Range Interpretation Comments Carbon Dioxide Level (test code = 2028-9) 23 22-29 [facility] or plasma anion [id number] 05:30:00* Test Item Value Reference Range Interpretation Comments Anion Gap (test code = 94670-2) 9.4 8-16 [facility] plasma urea nitrogen measurement (mass/volume)2020-03-19 05:30:00* Test Item Value Reference Range Interpretation Comments Blood Urea Nitrogen (test code = 3094-0) 13 7-26 [facility]ere[facility] or plasma creatinine measurement (mass/volume)2020-03-19 05:30:00* Test Item Value Reference Range Interpretation Comments Creatinine (test code = 2160-0) 1.11 0.57-1.11 [facility]rum or plasma urea nitrogen/creatinine mass lduts7188-32-37 05:30:00* Test Item Value Reference Range Interpretation Comments BUN/Creatinine Ratio (test code = 3097-3) 12 6-25 [facility] CenterEstimated glomerular filtration rate (GFR) pkderqnebbfra2044-86-33 05:30:00* Test Item Value Reference Range Interpretation Comments Estimat Glomerular Filtration Rate (test code = 537184934) 49 >60 Ranges were taken from the National Kidney Disease Education Program and the [facility] Kid[facility] Foundation literature.Reference ranges:60 or greater: Miablu91-28 ( for 3 consecutive months): Chronic kidney disease 15 or less: Kidney failureBig [facility] Regional Medical CenterGlucose empgyfqfeyk3239-65-65 05:30:00* Test Item Value Reference Range Interpretation Comments Glucose Level (test code = PSZ7259) 107 74-118 [facility]ere[facility] or plasma calcium measurement (mass/volume)2020-03-19 05:30:00* Test Item Value Reference Range Interpretation Comments Calcium Level (test code = 00884-0) 8.9 8.4-10.2 [facility]ere[facility] or plasma total bilirubin measurement (mass/volume)2020-03-19 05:30:00* Test Item Value Reference Range Interpretation Comments Total Bilirubin (test code = 1975-2) 4.8 0.2-1.2 [facility] CenterFluoroscopic procedure less than one hour qxopsxwh1728-73-06 05:30:00* Test Item Value Reference Range Interpretation Comments Aspartate Amino Transf (AST/SGOT) (test code = Aspartate Amino Transf (AST/SGOT)) 74 5-34 [facility]ererum or plasma alanine aminotransferase measurement (enzymatic activity/volume)2020-03-19 05:30:00* Test Item Value Reference Range Interpretation Comments Alanine Aminotransferase (ALT/SGPT) (test code = 1742-6) 31 0-55 [facility]ererum or plasma protein measurement (mass/volume)2020-03-19 05:30:00* Test Item Value Reference Range Interpretation Comments Total Protein (test code = 2885-2) 6.2 6.5-8.1 [facility]ere[facility] or plasma albumin measurement (mass/volume)2020-03-19 05:30:00* Test Item Value Reference Range Interpretation Comments Albumin (test code = 1751-7) 2.9 3.5-5.0 [facility] CenterPlasma globulin measurement (mass/volume) 2020-03-19 05:30:00* Test Item Value Reference Range Interpretation Comments Globulin (test code = 97458-8) 3.3 2.3-3.5 [facility]ere[facility] or plasma albumin/globulin mass lared0764-93-19 05:30:00* Test Item Value Reference Range Interpretation Comments Albumin/Globulin Ratio (test code = 1759-0) 0.9 0.8-2.0 [facility]ererum or plasma alkaline phosphatase measurement (enzymatic activity/volume)2020-03-19 05:30:00* Test Item Value Reference Range Interpretation Comments Alkaline Phosphatase (test code = 6768-6) 137 40-150 [facility] CenterLUNG [id number] 17:23:00 [facility] [address] [place] [address] Patient Name: DIANE SIMEON MR #: [id number] : 1955 Age/Sex: 64/F Req #: [id number] Adm Physician: BOBO PUENTES MD Ordered by: BOBO PUENTES MD Report #: [id number] Location: MED/SURG[address] [place] [address]/Bed: [facility] Procedure: NM/LUNG P ERFUSION Exam Date: 03/18/20 Exam Time: 1145 REPORT STATUS: Signed Perfusion Lung Sc an NOTE: Lung ventilation studies with xenon are not being performed per th e recommendation of the Society of Nuclear Medicine and Molecular Imaging. It is not possible to be certain that the ventilation system is adequately dis infected. Ventilation studies with Tc-99m DTPA particles is contraindicated b ecause the delivery by nebulization generates too many water droplets from the patient's airway. Clinical Information: Altered mental status; elevated D-dimer. Comparison: Chest radiograph 03/15/2020 Discussion: Ventilatio n images were not obtained. See note above. Perfusion images of the lungs were obtained in multiple projections following intravenous administration of approximately 6 mCi of Tc-99m MAA. Distribution of tracer is irregular through out the lungs. There are no segmental perfusion defects of any size. Th e cardiomediastinal silhouette is borderline enlarged. Impression: 1. Scan findings represent a VERY LOW probability for acute pulmonary embolic d isease based on the perfusion-only PIOPED II criteria. A concurrent ventilati on study would not alter the assigned probability. 2. Scan findings are jacinda tible with diffuse parenchymal and/or obstructive lung disease. 3. Border line enlarged cardiac silhouette. Signed by: Dr. Rosina Nassar M.D. on 020 5:27 PM Dictated By: ROSINA NASSAR MD 26 Transcribed By: AL on 03/18/201726 COPY T O: BOBO PUENTES MD Prothrombin time (PT) in platelet poor plasma by coagulation [id number] 05:33:00* Test Item Value Reference Range Interpretation Comments Prothrombin Time (test code = 5902-2) 24.5 11.9-14.5 [facility] CenterINR in Platelet poor plasma by Coagulation [id number] 05:33:00* Test Item Value Reference Range Interpretation Comments Prothromb Time International Ratio (test code = 6301-6) 2.06 Oral Anticoagulant Therapy INR Values:1. Low Intensity Therapy 1.5 - 2.02 . Moderate Intensity Therapy 2.0 - 3.03. High Intensity Therapy(1) 2.5 - 3. 54. High Intensity Therapy(2) 3.0 - 4.05. Panic Value INR > 5.0 [facility] CenterFibrin D-dimer DDU measurement in platelet poor plasma (mass/volume)2020-03-17 05:00:00* Test Item Value Reference Range Interpretation Comments D-Dimer Quantitative (PE/DVT) (test code = 19796-2) 1.50 0. 00-0.45 As with all in vitro diagnostic tests, the test results should be interpreted by the physician in conjunction with clinical findings and other test results.Test results are reported in NEW D-dimer units(ug/mLFEU).[facility] CenterFibrinogen measurement in platelet poor plasma by coagulation assay (mass/volume)2020-03-17 05:00:00* Test Item Value Reference Range Interpretation Comments Fibrinogen (test code = 3255-7) 103 204-462 [facility] [facility] or plasma hepatitis A virus IgM antibody detection by dbdfoosodfe7710-14-36 05:00:00* Test Item Value Reference Range Interpretation Comments Hepatitis A IgM Antibody (test code = 96086-8) Negative Negativ e [facility] hepatitis B virus surface antigen detection by npsiccqadpl6067-28-42 05:00:00* Test Item Value Reference Range Interpretation Comments Hepatitis B Surface Antigen (test code = 5196-1) Negative Negat aristeo [facility] hepatitis B virus core IgM antibody detection by nydfsjgrnkc8478-35-91 05:00:00* Test Item Value Reference Range Interpretation Comments Hepatitis B Core IgM Antibody (test code = 64253-6) Negative Ne gative [facility] hepatitis C virus antibody rryzxrmna6107-39-52 05:00:00* Test Item Value Reference Range Interpretation Comments Hepatitis C Antibody (test code = 36585-1) 0.5 0.0-0.9 Negative: < 0.8 Indeterminate: 0.8 - 0.9 Positive: > 0.9 The CDC recommends that a positive HCV antibody result be followed up with a HCV Nucleic Acid Amplification test (292347).Performed at: [facility] [address] [place] [address] [id number] Director: Edmund Centeno MD, Phone: [phone] [facility] CenterFluoroscopic procedure less than one hour yaybzgjy0724-52-31 15:00:00* Test Item Value Reference Range Interpretation Comments Lactic Acid Level (test code = Lactic Acid Level) 2.0 0.5- 2.0 [facility] CenterActivated partial thromboplastin time (aPTT) in platelet poor plasma by coagulation ieiav1263-36-65 05:30:00* Test Item Value Reference Range Interpretation Comments Activated Partial Thromboplast Time (test code = 39019-8) 45.4 23.8-35.5 [facility] magnesium measurement (mass/volume)2020-03-16 05:30:00* Test Item Value Reference Range Interpretation Comments Magnesium Level (test code = 68052-3) 1.6 1.3-2.1 [facility] creatine kinase measurement (enzymatic activity/volume)2020-03-16 05:30:00* Test Item Value Reference Range Interpretation Comments Creatine Kinase (test code = 2157-6) 65 29-168 [facility] plasma creatine kinase MB measurement (mass/volume)2020-03-16 05:30:00* Test Item Value Reference Range Interpretation Comments Creatine Kinase MB (test code = 07003-0) 2.40 0-5.0 [facility] CenterTroponin I measurement by highly sensitive enzyme poybxzgvael9324-04-45 05:30:00* Test Item Value Reference Range Interpretation Comments Troponin I (test code = 47543-4) 0.015 0-0.300 [facility] CenterFluoroscopic procedure less than one hour tntdlucg6196-97-98 16:38:00* Test Item Value Reference Range Interpretation Comments Coronavirus (PCR) (test code = Coronavirus (PCR)) NOT DETECTED NOTD [employer] SARS-CoV-2 assay is a nucleic amplification test intended for the qualitative detection of RNA from SARS-CoV-2 from nasopharyngeal (GROUP WORK PROGRAM DIRECTOR) specimens . It is used under Emergency Use Authorization (EUA) by FDA.A positive result is indicative of the presence of SARS-CoV-2 RNA. Clinical correlation with patient history and other diagnostic information is necessary to determine patient infe ction status.A negative (Not Detected) result does not preclude SARS-CoV-2 infec tion. Clinical Correlation with patient history and other diagnostic information should be used in patient management decisions.Invalid: Unable to generate a va lid result on this specimen. Please submit a new specimen for reprat testing oc clinically indicated.Tesing performed by:[facility] Laboratory [address] [place] [address] [id number], Gary Thao MD, PhD [facility] CenterCHES SINGLE (PORTABLE)2020-03-15 10:42:00 [facility] [address] [address] Patient Name: DIANE SIMEON MR #: [id number] : 1955 Age/Sex: 64/F Req #: [id number] Adm Physician: Ordered by: CARLITOS HARPER MD Report #: [id number] Location: ER Room/Bed: Procedure: [id number] DX/CHEST SINGLE (PORTABLE) Exam Date: 03/15/20 Exam Time: 082 0 REPORT STATUS: Signed EXAMINAT ION: CHEST SINGLE (PORTABLE) INDICATION: Altered mental status. C OMPARISON: Chest x-ray on 03/08/2020. FINDINGS: TUBES and NAILA ES: None. LUNGS: Low lung volumes with bronchovascular crowding prominent interstitial lung markings. No focal consolidation. PLEURA: No pleural e ffusion or pneumothorax. HEART AND MEDIASTINUM: The heart is mildly enlarg ed. The mediastinal contours otherwise within normal limits BONES AND SOFT TISSUES: No acute osseous lesion. Soft tissues are unremarkable. UPPER ABDOMEN: No free air under the diaphragm. IMPRESSION: Cardi omegaly with mild interstitial pulmonary edema. Signed by: Kasey Villanueva MD on 03/15/2020 10:45 AM Dictated By: KASEY VILLANUEVA MD Electronically S igned By: KASEY VILLANUEVA MD on 03/15/20 1045 Transcribed By: AL on 0 1045 COPY TO: CARLITOS HARPER MD CT BRAIN [id number] 10:20:00 [address] [address] Patient Name: DIANE SIMEON MR #: [id number] : Age/Sex: 64/F Req #: [id number] Adm Physician: Ordered by: CARLITOS HARPER MD Report #: [id number] Location: [facility] o/Bed: Procedure: [id number] CT/CT BRA IN WO Exam Date: 03/15/20 Exam Time: 819 REPORT STATUS: Signed History:Altered ment al status Comparison studies: None Technique: Axial images were ob tained from the skull base to the vertex. Coronal and sagittal images reconstr ucted from the axial data. Dose modulation, iterative reconstruction, and/or w eight based adjustment of the mA/kV was utilized to reduce the radiation dose to as low as reasonably achievable. Intravenous contrast: None Fin dings: Scalp/skull: No abnormalities. Extra-axial spaces: 6 mm t hick, CSF-like, chronic bilateral frontoparietal subdural collections do not e xert mass effect on the underlying brain (series 400, image 38). No masses. No additional fluid collections. Brain sulci: Appropriate for age Ventricle s: Normal in size and configuration. No hydrocephalus. Parenchyma: Subtl e hypodensities in the supratentorial white matter are nonspecific microvascul ar ischemic changes. Focal cortical and subcortical encephalomalacic changes in the right inferomedial parietal lobe (precuneus) is the result of an nonspe cific vascular insult No masses, hemorrhage, acute or additional chronic cor tical vascular insults. Sellar/suprasellar region: No abnormalities. Cran iocervical junction: Patent foramen magnum. No Chiari one malformation. In cidental findings: * A stent is in place from the lacerum to the supraclinoid segment of the left ICA (series 401, image 31) * Subtle atherosclerotic ca lcifications in the right carotid siphon. * Nonspecific opacification of mult iple right mastoid air cells. 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 Impression: 1. No acute intracranial abnorm alities. 2. 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 3. Focal chronic nonspecific left parietal insult. 4. Incidental findings a s described. Signed by: Dr. Bang Herman M.D. on 03/15/2020 10:30 AM Dictated By: BANG HERMAN MD, MD 1030 Transcribed By: AL on 03/15/20 1030 COPY TO: CARLITOS HARPER MD Stool gastrointestinal hemoglobin gjwvqbzaf2830-34-95 09:40:00* Test Item Value Reference Range Interpretation Comments Stool Occult Blood (test code = 2335-8) NEGATIVE NEGATIVE [facility] CenterUrine color lbhyoszlrrset7004-46-76 08:18:00* Test Item Value Reference Range Interpretation Comments Urine Color (test code = 5778-6) ORANGE YELLOW [facility] CenterUrine ncwyglw0546-38-93 08:18:00* Test Item Value Reference Range Interpretation Comments Urine Clarity (test code = 36847-6) SL CLOUDY CLEAR [facility] Centerpecific gravity of Urine by Test strip 2020-03-15 08:18:00* Test Item Value Reference Range Interpretation Comments Urine Specific [place] (test code = 5811-5) >=1.030 1.010-1.02 5 [facility] CenterUrine pH measurement by automated test bascp4942-52-20 08:18:00* Test Item Value Reference Range Interpretation Comments Urine pH (test code = 65200-6) 5.5 5-7 [facility] CenterUrine leukocyte esterase detection by cwlnonnk6562-44-74 08:18:00* Test Item Value Reference Range Interpretation Comments Urine Leukocyte Esterase (test code = 5799-2) SMALL NEGATIVE [facility] CenterUrine nitrite azhjsaocy3577-47-67 08:18:00* Test Item Value Reference Range Interpretation Comments Urine Nitrite (test code = 89934-4) POSITIVE NEGATIVE [facility] CenterUrine protein measurement by test strip (mass/volume)2020-03-15 08:18:00* Test Item Value Reference Range Interpretation Comments Urine Protein (test code = 5804-0) 1+ NEGATIVE [facility] CenterUrine glucose macrvgykh1028-40-33 08:18:00* Test Item Value Reference Range Interpretation Comments Urine Glucose (UA) (test code = 2349-9) NEGATIVE NEGATIVE [facility] CenterUrine ketones detection by automated test ujzwp4220-60-96 08:18:00* Test Item Value Reference Range Interpretation Comments Urine Ketones (test code = 23822-2) TRACE NEGATIVE [facility] CenterUrine urobilinogen measurement by test strip (mass/volume)2020-03-15 08:18:00* Test Item Value Reference Range Interpretation Comments Urine Urobilinogen (test code = 74747-7) 0.2 0.2-1 [facility] CenterUrine total bilirubin measurement (mass/volume)2020-03-15 08:18:00* Test Item Value Reference Range Interpretation Comments Urine Bilirubin (test code = 1978-6) SMALL NEGATIVE [facility] CenterUrine erythrocytes kwbsxpwzv6393-15-73 08:18:00* Test Item Value Reference Range Interpretation Comments Urine Blood (test code = 91082-3) SMALL NEGATIVE [facility] CenterAutomated urine sediment leukocyte count by microscopy (number/high power field)2020-03-15 08:18:00* Test Item Value Reference Range Interpretation Comments Urine WBC (test code = 5821-4) 21-50 0-5 [facility] CenterErythrocytes detection in urine sediment by light zlvksseghk8236-87-73 08:18:00* Test Item Value Reference Range Interpretation Comments Urine RBC (test code = 49833-9) 11-20 0-5 [facility] CenterBacteria detection in urine sediment by light zfawjxhqvs1525-22-61 08:18:00* Test Item Value Reference Range Interpretation Comments Urine Bacteria (test code = 39590-3) MANY NONE [facility] CenterEpithelial cells detection in urine sediment by light ujgxqxxetq7495-73-21 08:18:00* Test Item Value Reference Range Interpretation Comments Urine Epithelial Cells (test code = 75802-6) FEW NONE [facility] iron measurement (mass/volume)2020-03-15 08:18:00* Test Item Value Reference Range Interpretation Comments Iron Level (test code = 2498-4) 74 50-170 [facility] iron binding capacity measurement (mass/volume)2020-03-15 08:18:00* Test Item Value Reference Range Interpretation Comments Total Iron Binding Capacity (test code = 2500-7) 67 261-4 78 [facility] iron saturation measurement (mass fraction)2020-03-15 08:18:00* Test Item Value Reference Range Interpretation Comments Percent Iron Saturation (test code = 2502-3) 110 15-50 [facility] plasma transferrin measurement (mass/volume)2020-03-15 08:18:00* Test Item Value Reference Range Interpretation Comments Transferrin (test code = 3034-6) < 70 180-382 [facility] plasma ferritin measurement (mass/volume)2020-03-15 08:18:00* Test Item Value Reference Range Interpretation Comments Ferritin (test code = 2276-4) 1626.51 4.63-204.00 [facility] CenterBNP Xyy-eCny4047-56-02 08:18:00* Test Item Value Reference Range Interpretation Comments B-Type Natriuretic Peptide (test code = 85394-2) 470.1 0-100 [facility] plasma amylase measurement (enzymatic activity/volume)2020-03-15 08:18:00* Test Item Value Reference Range Interpretation Comments Amylase Level (test code = 1798-8) 33 25-125 [facility] plasma lipase measurement (enzymatic activity/volume)2020-03-15 08:18:00* Test Item Value Reference Range Interpretation Comments Lipase (test code = 3040-3) 9 8-78 [facility] CenterBlood jehndxf8451-26-51 08:18:00* Test Item Value Reference Range Interpretation Comments Blood Culture (test code = 86685974) NO GROWTH AFTER 5 DAYS, FINAL REPORT [facility] CenterBacterial urine lpxdgza5364-34-61 08:18:00* Test Item Value Reference Range Interpretation Comments Urine Culture (test code = 630-4) KLEBSIELLA PNEUMONIAE-ESBL [facility] CenterUrine color vdekghfgtfqsk9255-66-13 05:05:00* Test Item Value Reference Range Interpretation Comments Urine Color (test code = 5778-6) SELVIN YELLOW [facility] CenterUrine xfjhepr5730-73-61 05:05:00* Test Item Value Reference Range Interpretation Comments Urine Clarity (test code = 59699-1) HAZY CLEAR [facility] Centerpecific gravity of Urine by Test strip 2020-03-08 05:05:00* Test Item Value Reference Range Interpretation Comments Urine Specific [place] (test code = 5811-5) 1.010 1.010-1.02 5 [facility] CenterUrine pH measurement by automated test oinrx3739-64-70 05:05:00* Test Item Value Reference Range Interpretation Comments Urine pH (test code = 11766-1) 6.5 5-7 [facility] CenterUrine leukocyte esterase detection by cxwrctwd4509-76-41 05:05:00* Test Item Value Reference Range Interpretation Comments Urine Leukocyte Esterase (test code = 5799-2) NEGATIVE NEGATIVE [facility] CenterUrine nitrite kfzsyvahi4134-99-15 05:05:00* Test Item Value Reference Range Interpretation Comments Urine Nitrite (test code = 22340-2) POSITIVE NEGATIVE [facility] CenterUrine protein measurement by test strip (mass/volume)2020-03-08 05:05:00* Test Item Value Reference Range Interpretation Comments Urine Protein (test code = 5804-0) NEGATIVE NEGATIVE [facility] CenterUrine glucose fxuyszpwb1639-24-92 05:05:00* Test Item Value Reference Range Interpretation Comments Urine Glucose (UA) (test code = 2349-9) NEGATIVE NEGATIVE [facility] CenterUrine ketones detection by automated test oiuyd7582-40-57 05:05:00* Test Item Value Reference Range Interpretation Comments Urine Ketones (test code = 05757-9) NEGATIVE NEGATIVE [facility] CenterUrine urobilinogen measurement by test strip (mass/volume)2020-03-08 05:05:00* Test Item Value Reference Range Interpretation Comments Urine Urobilinogen (test code = 25785-7) 0.2 0.2-1 [facility] CenterUrine total bilirubin measurement (mass/volume)2020-03-08 05:05:00* Test Item Value Reference Range Interpretation Comments Urine Bilirubin (test code = 1978-6) NEGATIVE NEGATIVE [facility] CenterUrine erythrocytes rtdyeasfw7418-07-76 05:05:00* Test Item Value Reference Range Interpretation Comments Urine Blood (test code = 03963-7) TRACE NEGATIVE [facility] CenterAutomated urine sediment leukocyte count by microscopy (number/high power field)2020-03-08 05:05:00* Test Item Value Reference Range Interpretation Comments Urine WBC (test code = 5821-4) 6-10 0-5 [facility] CenterErythrocytes detection in urine sediment by light ikjphgzicw4021-24-05 05:05:00* Test Item Value Reference Range Interpretation Comments Urine RBC (test code = 86821-1) 6-10 0-5 [facility] CenterBacteria detection in urine sediment by light ozqiqgocqa9681-41-12 05:05:00* Test Item Value Reference Range Interpretation Comments Urine Bacteria (test code = 76244-6) MANY NONE [facility] CenterEpithelial cells detection in urine sediment by light bxcxmatxxc2828-88-86 05:05:00* Test Item Value Reference Range Interpretation Comments Urine Epithelial Cells (test code = 03454-3) MODERATE NONE [facility] CenterCT ABDOMEN/PELVIS V5097-28-32 04:12:00 [facility] [address] [address] Patient Name: DIANE SIMEON MR #: [id number] : 4 Age/Sex: 64[facility]F [id number] Req #: [id number] Adm Physician: Ordered by: SYLVIA JAQUEZ DO Report #: [id number] Location: ER Room/Bed: Procedure: CT/CT ABDOMEN/PELVIS W [...] mass protocol. S igned by: Dr. Carlos López M.D. on 03/08/2020 4:27 AM Dictated By : NATTY LÓPEZ MD, MD 6 COPY TO: ERICKSON JAQUEZ, DO CHEST SINGLE (PORTABLE)2020-03-08 04:08:00 [address] [address] [address] Patient Name: DIANE SIMEON MR #: [id number] : 1955 Age/Sex: 64/F Req #: [id number] Adm Physician: Ordered by: SYLVIA JAQUEZ DO Report #: [id number] Location: ER Room/Bed: Procedure: [id number] DX/[facility] ST SINGLE (PORTABLE) Exam Date: 03/08/20 [...] pulmonary edema. Signed b y: Dr. Carlos López M.D. on 03/08/2020 4:12 AM Dictated By: NATTY LÓPEZ MD, MD 1 Transcribed By: AL on 03/08/20411 COPY TO: SYLVIA JAQUEZ DO CTA [id number] 04:03:00 [address] [address] Patient Name: DIANE SIMEON MR #: [id number] : 1955 Age/Sex: 64/F Req #: [id number] Adm Physician: Ordered by: SYLVIA JAQUEZ DO Report #: [id number] Location: Room/Bed: Procedure: CT/CTA NECK Exam Date: 03/08/20 Exam Time: [...] 03/08/20440 COPY TO: SYLVIA JAQUEZ DO CTA LLQBK1957-26-49 04:03:00 [address] [address] Patient Name: DIANE SIMEON MR #: [id number] : 1955 Age/Sex: 64/F Req #: [id number] Adm Physician: Ordered by: SYLVIA JAQUEZ DO Report #: [id number] Location: ER Room/Bed: Procedure: [id number] CT/CTA BRAIN Exam Date: 03/08/20 Exam Time: 0315 REPORT STATUS: Signed EXAMINATION: CT ang io of the neck and head with contrast. HISTORY:Altered mental status and slurred speech for 3 days. COMPARISON:None. TECHNIQUE: Multidetector [facility] ical axial images were acquired through the [...] 03/08/20440 COPY TO: SYLVIA JAQUEZ DO BNP Vfm-eRnn4815-92-26 02:30:00* Test Item Value Reference Range Interpretation Comments B-Type Natriuretic Peptide (test code = 78485-9) 596.9 0-100 [facility] CenterBlood leukocytes automated count (number/volume)2020-03-08 00:30:00* Test Item Value Reference Range Interpretation Comments White Blood Count (test code = 6690-2) 4.21 4.8-10.8 [facility] CenterBlood erythrocytes automated count (number/volume)2020-03-08 00:30:00* Test Item Value Reference Range Interpretation Comments Red Blood Count (test code = 789-8) 2.65 3.6-5.1 [facility] CenterBlood hemoglobin measurement (moles/volume)2020-03-08 00:30:00* Test Item Value Reference Range Interpretation Comments Hemoglobin (test code = 16434-2) 8.2 12.0-16.0 [facility] CenterAutomated blood hematocrit (volume fraction)2020-03-08 00:30:00* Test Item Value Reference Range Interpretation Comments Hematocrit (test code = 4544-3) 25.9 34.2-44.1 [facility] CenterAutomated erythrocyte mean corpuscular svvvme7845-40-06 00:30:00* Test Item Value Reference Range Interpretation Comments Mean Corpuscular Volume (test code = 787-2) 97.7 81-99 [facility] CenterAutomated erythrocyte mean corpuscular hemoglobin (mass per erythrocyte)2020-03-08 00:30:00* Test Item Value Reference Range Interpretation Comments Mean Corpuscular Hemoglobin (test code = 785-6) 30.9 28-32 [facility] CenterAutomated erythrocyte mean corpuscular hemoglobin concentration measurement (mass/volume)2020-03-08 00:30:00* Test Item Value Reference Range Interpretation Comments Mean Corpuscular Hemoglobin Concent (test code = 786-4) 31.7 31-35 [facility] CenterRDW MxqVj-Fly7965-52-26 00:30:00* Test Item Value Reference Range Interpretation Comments Red Cell Distribution Width (test code = 05763-1) 17.5 11.7 -14.4 [facility] CenterAutomated blood platelet count (count/volume)2020-03-08 00:30:00* Test Item Value Reference Range Interpretation Comments Platelet Count (test code = 777-3) 37 140-360 Results repeated and called to suyapa at 0050 on 03/08/20 by Andrés Ferrer. Read back and verified.[facility] CenterAutomated blood segmented neutrophil count as percentage of total msesommdku5120-76-34 00:30:00 * Test Item Value Reference Range Interpretation Comments Neutrophils (%) (Auto) (test code = 13996-5) 46.8 38.7-80.0 [facility] CenterAutomated blood lymphocyte count as percentage ot total zkqmtdruvj0947-60-09 00:30:00* Test Item Value Reference Range Interpretation Comments Lymphocytes (%) (Auto) (test code = 736-9) 37.8 18.0-39.1 [facility] CenterAutomated blood monocyte count as percentage of total bjskxfzzap4760-01-52 00:30:00* Test Item Value Reference Range Interpretation Comments Monocytes (%) (Auto) (test code = 5905-5) 10.2 4.4-11.3 [facility] CenterAutomated blood eosinophil count as percentage of total xqizumlzub9520-43-85 00:30:00* Test Item Value Reference Range Interpretation Comments Eosinophils (%) (Auto) (test code = 713-8) 4.0 0.0-6.0 [facility] CenterAutomated blood basophil count as percentage of total yeshtdengh7027-56-27 00:30:00* Test Item Value Reference Range Interpretation Comments Basophils (%) (Auto) (test code = 706-2) 1.0 0.0-1.0 [facility] CenterFluoroscopic procedure less than one hour wnxbmmmd8769-23-92 00:30:00* Test Item Value Reference Range Interpretation Comments IM GRANULOCYTES % (test code = IM GRANULOCYTES %) 0.2 0.0- 1.0 [facility] CenterAutomated blood neutrophil count 2020-03-08 00:30:00* Test Item Value Reference Range Interpretation Comments Neutrophils # (Auto) (test code = 751-8) 2.0 2.1-6.9 [facility] CenterBlood lymphocytes count (number/volume) 2020-03-08 00:30:00* Test Item Value Reference Range Interpretation Comments Lymphocytes # (Auto) (test code = 99549-9) 1.6 1.0-3.2 [facility] CenterBlood monocytes automated count (number/volume)2020-03-08 00:30:00* Test Item Value Reference Range Interpretation Comments Monocytes # (Auto) (test code = 742-7) 0.4 0.2-0.8 [facility] CenterAutomated blood eosinophil count 2020-03-08 00:30:00* Test Item Value Reference Range Interpretation Comments Eosinophils # (Auto) (test code = 711-2) 0.2 0.0-0.4 [facility] CenterAutomated blood basophil count (count/volume)2020-03-08 00:30:00* Test Item Value Reference Range Interpretation Comments Basophils # (Auto) (test code = 704-7) 0.0 0.0-0.1 [facility] CenterFluoroscopic procedure less than one hour gxunwxwp3268-24-87 00:30:00* Test Item Value Reference Range Interpretation Comments Absolute Immature Granulocyte (auto (sophia t code = Absolute Immature Granulocyte (auto) 0.01 0-0.1 [facility] or plasma sodium measurement (moles/volume)2020-03-08 00:30:00* Test Item Value Reference Range Interpretation Comments Sodium Level (test code = 2951-2) 143 136-145 [facility]ererum or plasma potassium measurement (moles/volume)2020-03-08 00:30:00* Test Item Value Reference Range Interpretation Comments Potassium Level (test code = 2823-3) 3.1 3.5-5.1 [facility]ererum or plasma chloride measurement (moles/volume)2020-03-08 00:30:00* Test Item Value Reference Range Interpretation Comments Chloride Level (test code = 2075-0) 99 98-107 [facility]ererum or plasma carbon dioxide, total measurement (moles/volume)2020-03-08 00:30:00* Test Item Value Reference Range Interpretation Comments Carbon Dioxide Level (test code = 2028-9) 34 22-29 [facility]ererum or plasma anion pae5543-84-66 00:30:00* Test Item Value Reference Range Interpretation Comments Anion Gap (test code = 27955-9) 13.1 8-16 [facility]ererum or plasma urea nitrogen measurement (mass/volume)2020-03-08 00:30:00* Test Item Value Reference Range Interpretation Comments Blood Urea Nitrogen (test code = 3094-0) 7 7-26 [facility]ererum or plasma creatinine measurement (mass/volume)2020-03-08 00:30:00* Test Item Value Reference Range Interpretation Comments Creatinine (test code = 2160-0) 1.27 0.57-1.11 [facility] urea nitrogen/creatinine mass rywrf2462-02-55 00:30:00* Test Item Value Reference Range Interpretation Comments BUN/Creatinine Ratio (test code = 3097-3) 6 6-25 [facility] CenterEstimated glomerular filtration rate (GFR) nfeljmtrhhmit8767-87-64 00:30:00* Test Item Value Reference Range Interpretation Comments Estimat Glomerular Filtration Rate (test code = 177506596) 42 >60 Ranges were taken from the National Kidney Disease Education Program and the [facility] Kidney Foundation literature.Reference ranges:60 or greater: Pmcsho72-01 ( for 3 consecutive months): Chronic kidney disease 15 or less: Kidney failureBig [facility] CenterGlucose ppxsexcneyt4612-24-22 00:30:00* Test Item Value Reference Range Interpretation Comments Glucose Level (test code = AXY7624) 92 74-118 [facility] calcium measurement (mass/volume)2020-03-08 00:30:00* Test Item Value Reference Range Interpretation Comments Calcium Level (test code = 22894-0) 8.7 8.4-10.2 [facility] plasma total bilirubin measurement (mass/volume)2020-03-08 00:30:00* Test Item Value Reference Range Interpretation Comments Total Bilirubin (test code = 1975-2) 4.8 0.2-1.2 [facility] CenterFluoroscopic procedure less than one hour tcxwmhah8833-19-89 00:30:00* Test Item Value Reference Range Interpretation Comments Aspartate Amino Transf (AST/SGOT) (test code = Aspartate Amino Transf (AST/SGOT)) 54 5-34 [facility] plasma alanine aminotransferase measurement (enzymatic activity/volume)2020-03-08 00:30:00* Test Item Value Reference Range Interpretation Comments Alanine Aminotransferase (ALT/SGPT) (test code = 1742-6) 24 0-55 [facility] CenterAmmonia Zxg-yOgr4810-18-26 00:30:00* Test Item Value Reference Range Interpretation Comments Ammonia (test code = 48361-0) 68 31-123 [facility] protein measurement (mass/volume)2020-03-08 00:30:00* Test Item Value Reference Range Interpretation Comments Total Protein (test code = 2885-2) 6.2 6.5-8.1 [facility] albumin measurement (mass/volume)2020-03-08 00:30:00* Test Item Value Reference Range Interpretation Comments Albumin (test code = 1751-7) 3.1 3.5-5.0 [facility] CenterPlasma globulin measurement (mass/volume) 2020-03-08 00:30:00* Test Item Value Reference Range Interpretation Comments Globulin (test code = 30031-5) 3.1 2.3-3.5 [facility] albumin/globulin mass twrwb4249-09-79 00:30:00* Test Item Value Reference Range Interpretation Comments Albumin/Globulin Ratio (test code = 1759-0) 1.0 0.8-2.0 [facility] or plasma alkaline phosphatase measurement (enzymatic activity/volume)2020-03-08 00:30:00* Test Item Value Reference Range Interpretation Comments Alkaline Phosphatase (test code = 6768-6) 122 40-150 [facility] plasma amylase measurement (enzymatic activity/volume)2020-03-08 00:30:00* Test Item Value Reference Range Interpretation Comments Amylase Level (test code = 1798-8) 33 25-125 [facility] plasma lipase measurement (enzymatic activity/volume)2020-03-08 00:30:00* Test Item Value Reference Range Interpretation Comments Lipase (test code = 3040-3) 11 8-78 [facility] or plasma ethanol measurement (mass/volume)2020-03-08 00:30:00* Test Item Value Reference Range Interpretation Comments Ethyl Alcohol Level (test code = 5643-2) < 10.0 0.0-10.0 [facility] ethanol measurement (mass/volume)2020-03-08 00:30:00* Test Item Value Reference Range Interpretation Comments Ethyl Alcohol Level (test code = 5643-2) < 10.0 0.0-10.0 [facility] CenterCHEM NQJYN1159-61-63 22:18:001.9[facility]CHE[facility] GVQZM8521-38-37 22:18:002.5[facility]annCHEM YVKCI0177-29-00 11:54:89895Hzfjtofc HermannCHEM MGQKL3572-97-28 11:54:0010[facility]annCHE[facility] FSURV5924-13-92 11:54:000.81[facility]annCHE[facility] FJOGT8808-48-26 11:54:37309 [facility]CHE[facility] IMHSI0777-75-98 11:54:004.0[facility]annCHEM PANEL 2020-02-26 11:54:53060Rpafqdxj [facility]annCHE[facility] QFJMC7159-84-04 11:54:0021[facility]annCHE[facility] PWZMC6111-97-02 11:54:008.0[facility]annCHE[facility] UBPGX0393-01-05 11:54:005.1[facility]annCHE[facility] WGLMT3020-27-10 11:54:002.4[facility]annCHE[facility] UJSVA3985-28-26 11:54:0022[facility]annCHE[facility] SGVKJ8759-83-55 11:54:0038 [facility]CHE[facility] PNJPA5553-39-44 11:54:0097[facility]annCHEM PANEL 2020-02-26 11:54:002.9[facility]annCHE[facility] ZQRDI5236-48-41 11:54:009.0[facility]annCHE[facility] CNLLV2023-69-72 11:54:00* Test Item Value Reference Range Interpretation Comments B/C Ratio (test code = B/C Ratio) 12 1 6-25 [facility]CHE[facility] SCZND4427-98-97 11:54:002.7[facility]annCHEM PANEL 2020-02-26 11:54:00* Test Item Value Reference Range Interpretation Comments A/G Ratio (test code = A/G Ratio) 0.9 1 0.7-1.6 [facility]annCHE[facility] BEAFU0113-76-65 11:54:0077[facility]annCHEM PANEL 2020-02-26 11:54:001.6[facility]annCHE[facility] VHINZ2454-18-86 11:54:002.4[facility]annCHE[facility] NUUGY4384-61-26 20:21:001.5[facility]annCHE[facility] UCTVN2970-39-64 20:21:001.6[facility]annCHE[facility] RAZCO7045-66-67 20:21:85492Rmazlujn HermannCHEM OHSEZ0447-08-24 20:21:0012[facility]annCHE[facility] RWKTU6021-23-69 20:21:000.84 [facility]annCHE[facility] KQFGA5677-65-52 20:21:80872Lsqfpkhj [facility]annCHEM PANEL 2020-02-25 20:21:004.3[facility]annCHEM WYOON4048-14-59 20:21:63224Hgptyzpb [facility]CHE[facility] VFNWG1795-67-27 20:21:0024[facility]annCHE[facility] FJBNW5470-42-99 20:21:008.3[facility]annCHE[facility] NSCDQ7768-22-04 20:21:008.0[facility]annCHE[facility] OVZNK7987-90-53 20:21:0073[facility]annCHE[facility] PIGMS6379-31-59 08:54:0076 [facility]CHE[facility] VLQLU7012-65-84 08:54:0094[facility]annCHEM PANEL 2020-02-25 08:54:0013[facility]annCHEM OZSYA5496-49-62 08:54:000.81[facility]annCHE[facility] SJANK7365-21-89 08:54:57993Nllzrkvs [facility]CHE[facility] VBMIF0791-20-99 08:54:004.1[facility]annCHEM OGUCQ6406-12-30 08:54:16850Hugxatkj [facility]annCHE[facility] QLIEV2865-65-65 08:54:0022[facility]annCHEM UPTRW5332-47-18 08:54:008.0 [facility]annCHE[facility] PQYZO9116-75-98 08:54:007.1[facility]annCHEM PANEL 2020-02-25 08:54:0056.0[facility] CgjkqgqTPGJCSYJKN6338-75-04 08:54:0060.4[facility] GmwjlzbFNOXTUWLRV1217-64-18 08:54:0020.8[facility] KmvjykuBHFWWBAHWI8967-99-89 08:54:0011.9[facility] WmeccccCQKCVQRGTG7167-16-26 08:54:005.7[facility] LJWIDVCCPK8898-59-30 08:54:001.2[facility] XyaiqtzBNZCIZHIRN4791-38-23 08:54:002.7 [facility] OkefzaoISZOKPNZVO5189-66-22 08:54:000.9[facility] HermannHEMATOLOGY 2020-02-25 08:54:000.5[facility] GzuuqedYJQPPVFODQ9614-19-31 08:54:000.3[facility] LukrtmgEAFTBWGBSJ0245-43-82 08:54:000.1[facility] EafjhjkBKCBWHGWMM0657-96-44 08:54:004.4[facility] NyhrfslJITEDZIBZR8826-02-48 08:54:002.50[facility] WPQHJAUOLI6738-47-64 08:54:008.1[facility] FqceswxIAONECRWGM0778-08-08 08:54:00 24.3[facility] HkubzcyOWDQZBUPXV7684-01-21 08:54:0097.1[facility] HermannHEMATOLOGY 2020-02-25 08:54:00* Test Item Value Reference Range Interpretation Comments MCH (test code = MCH) 32.6 pg 27.0-31.0 [facility] TzdgkedJYOYQMSNEX0071-82-43 08:54:0033.6[facility] HermannHEMATOLOGY 2020-02-25 08:54:0015.7[facility] BbqpqppEUCVSLIVCW3609-22-93 08:54:0061[facility] BccmgvyYCQOQAZMCN3062-22-94 08:54:009.8[facility] VpjzvwuOFQFIJILTQ9116-75-26 10:01:0061.9[facility] ZjzwzddFWXUNYJFDL4246-63-92 10:01:0018.3[facility] XHXQGQABHO4275-59-66 10:01:0013.4[facility] WpftgomODCRHLPDEX7376-50-86 10:01:00 5.7[facility] UrvfvngAWSDAMMTWD6909-84-77 10:01:000.7[facility] HermannHEMATOLOGY 2020-02-24 10:01:002.5[facility] HoazzlwZFRSTPNNDP9690-94-25 10:01:000.7[facility] TceivfnHAKRRHMDUD4065-87-31 10:01:000.5[facility] EohyakyVZPUERHZHI4358-44-55 10:01:000.2[facility] DwcbtfbFEUIGKBFEB1162-33-44 10:01:004.0[facility] DHAWFEKWWW0150-10-56 10:01:002.36[facility] QjytplqINZTPYEIHI6750-16-70 10:01:00 7.7[facility] ApykdfoRLKUHOIVLP4968-61-00 10:01:0023.0[facility]annHEMATOLOGY 2020-02-24 10:01:0097.5[facility] QpoenqeUIKEAQBOGM1209-90-13 10:01:00* Test Item Value Reference Range Interpretation Comments MCH (test code = MCH) 32.8 pg 27.0-31.0 [facility] XjijsgzYFXKNYLIJG5081-21-35 10:01:0033.6[facility] HermannHEMATOLOGY 2020-02-24 10:01:0015.3[facility] QtdgojoNPKCKZKPFV5732-59-13 10:01:0062[facility] BbfpewcAFLMDRHHRR0057-22-15 10:01:009.5[facility] HauzwleSJKUSIKAPX3246-61-52 09:37:004.1[facility] PusfxbkTLMYBXUDGX2014-64-53 09:37:002.35[facility] [place] VEIKECOHWU1720-52-37 09:37:007.8[facility] FlnrnyoQUAGBTTFQI5598-93-61 09:37:00 22.9[facility] SuucawsPJEGZBEFDR8528-68-54 09:37:0097.5[facility] HermannHEMATOLOGY 2020-02-23 09:37:00* Test Item Value Reference Range Interpretation Comments MCH (test code = MCH) 33.3 pg 27.0-31.0 [facility] PjoaxloGTIWIEYICR7193-81-55 09:37:0034.1[facility]annHEMATOLOGY 2020-02-23 09:37:0015.4[facility] CcvjuqgMTSZNJLKJY8664-23-33 09:37:0059[facility] TaejvvfJIFBAPHVYR5350-42-71 09:37:009.3[facility] QfccxerZMOHEHGGGB0150-83-00 09:37:0060.9[facility] DaoouonASIWQWVFXW8426-16-27 09:37:0018.5[facility] PXCNIFOCOB7662-98-86 09:37:0013.7[facility] SnldwdoWQZLFUNXIY4789-57-88 09:37:00 6.4[facility] UnyfhogVTNAERAIYH7323-40-02 09:37:000.5[facility]annHEMATOLOGY 2020-02-23 09:37:002.5[facility] TlcgmzlODAEMQVCGJ0620-70-50 09:37:000.8[facility] PdfvuvlMQZTSUEEPF0394-62-14 09:37:000.6[facility] QytgnwfNCDPAOZTSQ2519-17-80 09:37:000.3[facility] HermannCHEM RXYTI4054-85-90 14:09:0057.0[facility]annCHEM FVBAY5927-58-88 09:20:0062.0[facility] HermannCHEM DSLVM7665-61-03 09:20:005.6 [facility]annCHE[facility] TGGHD5020-81-61 09:20:002.8[facility] HermannCHEM PANEL 2020-02-21 09:20:0023[facility]annCHEM VUOHR1530-57-33 09:20:0031[facility]annCHEM ZMHAZ2016-42-52 09:20:69531Tdyieesp HermannCHEM DIIAZ7550-04-52 09:20:001.9[facility]annCHEM TRZAM9927-91-43 09:20:00* Test Item Value Reference Range Interpretation Comments B/C Ratio (test code = B/C Ratio) 27 1 6-25 [facility]annCHE[facility] WTIPJ6054-79-01 09:20:002.8[facility]annCHEM PANEL 2020-02-21 09:20:00* Test Item Value Reference Range Interpretation Comments A/G Ratio (test code = A/G Ratio) 1.0 1 0.7-1.6 [facility] HfxnwujWLDAESOCFY4767-60-49 11:17:00Normal (02/20/20 6:17 AM)[facility] LqtyvmuUQBTXNCKXC2879-61-12 11:17:00Normal (02/20/20 6:17 AM)[facility]BLOOD BANK FLCEBEU5828-50-07 11:49:00Product available 5(02/19/20 6:49 AM)[facility]BL[facility] BANK LBQDGPJ4298-98-27 11:49:00Product available 4(02/19/20 6:49 AM) [facility] HermannCHEM TQVLY1264-39-31 10:44:006.0[facility]annCHEM PANEL 2020-02-19 10:44:003.2[facility]annCHEM SKPTR5296-26-47 10:44:0025[facility]annCHE[facility] LFUQZ4349-46-20 10:44:0044[facility]annCHEM WXUSK5837-32-85 10:44:0092[facility]annCHE[facility] XLWAD6728-16-90 10:44:002.0[facility]annCHEM LUUXM5289-70-94 10:44:000.8[facility]annCHEM YKAEW4778-13-19 10:44:002.8 [facility]annCHE[facility] SCPMX7497-01-82 10:44:00* Test Item Value Reference Range Interpretation Comments A/G Ratio (test code = A/G Ratio) 1.1 1 0.7-1.6 [facility]annCHE[facility] EHPSG6934-40-89 10:44:001.2[facility] HermannCHEM PANEL 2020-02-19 10:44:000.58[facility] PhwtacrNJCZGBURJC5696-41-71 10:44:00* Test Item Value Reference Range Interpretation Comments PT (test code = PT) 25.2 s 12.0-14.7 [facility] RpkkjroCTCGNJDMSV5285-66-13 10:44:00* Test Item Value Reference Range Interpretation Comments INR (test code = INR) 2.24 1 0.85-1.17 [facility] ZfigyeaIUULCHLBOJ7344-31-19 10:44:00* Test Item Value Reference Range Interpretation Comments PTT (test code = PTT) 46.4 s 22.9-35.8 [facility] HermannPARATHYROID BMVKOZZ2226-68-26 10:44:001.12[facility] [place] [facility] PARATHYROID PPBMHKI3817-73-19 10:44:001.11[facility] HermannCHEM YYCLO9310-03-77 14:49:000.9[facility]annCHEM PPSOL8379-78-04 14:49:001.5[facility] ZNDFXXGXLT7457-15-87 14:49:00* Test Item Value Reference Range Interpretation Comments PT (test code = PT) 25.1 s 12.0-14.7 [facility] FemtmxmKVPQPUVUYE0585-77-35 14:49:00* Test Item Value Reference Range Interpretation Comments INR (test code = INR) 2.23 1 0.85-1.17 [facility]CHE[facility] PUGQU2571-47-66 11:24:001.0[facility] HermannCHEM PANEL 2020-02-18 11:24:001.4[facility] YxhqrimQQHOTRKCVR9511-39-54 11:24:000.1[facility]annCHEM FKQHT2330-99-94 02:19:000.46[facility] YnycpcaVTFTGSPQONYYL4237-39-34 02:19:0025.1[facility] GgumjrxAHMBTAMFGS0332-13-85 09:39:000.1[facility] HermannCHEM AQCSN6355-12-44 03:03:00* Test Item Value Reference Range Interpretation Comments B/C Ratio (test code = B/C Ratio) 19 1 6-25 [facility] VPVK6637-57-99 19:51:0010[facility]annURINE CHEM 2020-02-16 19:51:65836.00[facility]annUR[facility] IUTB9904-44-88 19:51:0022.0 [facility] GTWS9568-11-98 19:51:00* Test Item Value Reference Range Interpretation Comments U Prot/Creat (test code = U Prot/Creat) 0.08 1 [facility] WpugjauDFWFIWDOXJ1020-14-53 10:26:00Not Detected (02/16/20 5:26 AM) [facility] AND WQGYA2947-47-23 10:24:00Yellow *NA*(02/16/20 5:24 AM) [facility] IYSUP7304-54-95 10:24:00Marked *ABN*(02/16/20 5:24 AM) [facility] LWYAJ1516-51-67 10:24:00* Test Item Value Reference Range Interpretation Comments UA Spec Grav (test code = UA Spec Grav) 1.014 1 [facility] AND FQOIV1657-76-50 10:24:00* Test Item Value Reference Range Interpretation Comments UA pH (test code = UA pH) 5.0 1 5.0-8.0 [facility] AND XFFSQ6927-89-65 10:24:00Negative *NA*(02/16/20 5:24 AM) [facility] BVTRX4282-43-70 10:24:00Negative (02/16/20 5:24 AM) [facility] LCZZX4629-25-58 10:24:00Negative (02/16/20 5:24 AM) [facility] FHXAH8408-12-52 10:24:00Negative (02/16/20 5:24 AM) [facility] INBMF2515-05-65 10:24:001[facility] AND LPSMT8884-15-36 10:24:00<1[facility] CKCF3312-27-50 10:24:0018 [facility] JWLF7181-45-36 10:24:0027.7[facility] CHEM 2020-02-16 10:24:0020[facility] QohguwqYQHLVQCMAQ6835-33-01 08:16:00See Note 7(02/16/20 3:16 AM)[facility] AND AWTUQ3660-39-90 08:16:00Positive *ABN*(02/16/20 3:16 AM)[facility]annBLOOD BANK CPVHYLW6364-40-47 05:00:00 Negative (02/16/20 12:00 AM)[facility] HermannCARDIAC AXJZSXP7800-48-44 05:00:0059 [facility]annCARDIAC MWQFWDI2912-79-33 05:00:00<0.02[facility] HermannCARDIAC AAJXWWC8060-95-05 05:00:41678Jjihzivk GmahbohBMESMVJVYA4975-06-17 05:00:00* Test Item Value Reference Range Interpretation Comments PT (test code = PT) 20.5 s 12.0-14.7 [facility] PwcbdxfLBFPKMXBZH4470-45-94 05:00:00* Test Item Value Reference Range Interpretation Comments INR (test code = INR) 1.73 1 0.85-1.17 [facility] WwrdaxkDMSVUHNEOF6002-21-03 05:00:00* Test Item Value Reference Range Interpretation Comments PTT (test code = PTT) 34.5 s 22.9-35.8 [facility] [place] [place] ABD PELVIS W/MXUI6197-96-29 14:36:00 Name: DIANE MCKNIGHT [facility] : 1955 Age/S: 64 / F [address] [place] [address] Unit #: [id number] Loc: [place] [address] Phys: Perico Duenas MD Acct: [id number] Dis Date: Status: REG CLI PHONE #: [phone] Exam Date: 10/05/2019 1400 FAX #: [phone] Reason: MAYO LIVER CIRRHOSIS EXAMS: CPT CODE: [id number] CT ABD PELVIS W/CONT 75455 REASON FOR EXAM: MAYO LIVER CIRRHOSIS EXAM [...] Signed Re port (CONTINUED) Name: DIANE MCKNIGHT [facility] : 1955 Age[facility]S: 64 / F [address] [facility] [id number] Loc: [facility] [place] [address] Phys: Perico Duenas MD Acct: [id number] Dis Date: Status: REG CLI PHONE #: [phone] Exam Date: 10/05/2019 1400 FAX #: [phone] Reason: MAYO LIVER CIRRHOSIS EXAMS: CP T CODE: [id number] CT ABD PELVIS W/CONT 74031 <Continued> narrowing of the central canal. There is also marked facet hypertrophy at L2-L3 which causes severe left-sided foraminal narrowing and moderate central canal narrowing. IMPRESSION: Cirrhotic liver with portal venous hypertension as evidenced by splenorenal shunt and recanalized umbilical vein. Colonic diverticulosis without diverticulitis. Location: [facility] at 1436 Reported and signed by: Amando Greenberg MD CC: Perico Duenas MD; Pascual Omer MD Technologist:Fang Tavares RT(R),CT CTDI: DLP: Trnscb Date/Time: 10/05/2019 (5298) [email or web address] Orig Print D/T: S: 10/05/2019 (0214) PAGE 2 Signed Report CREATININE W ESTIMATED [id number] 12:33:00* Test Item Value Reference Range Interpretation Comments BEDSIDE CREATININE (test code = CREATBED) mg/dL 0.7-1.3 L GLOMERULAR FILTRATION RATE POC (test code = GFRBED) 104 >6 0 H CREATININE W ESTIMATED AFM7835-60-24 12:33:00* Test Item Value Reference Range Interpretation Comments BEDSIDE CREATININE (test code = CREATBED) 0.58 mg/dL 0.7-1.3 L GLOMERULAR FILTRATION RATE POC (test code = GFRBED) > 60 >6 0 H Previously reported result: 104 Edited by: CODY on 10/05/19:157151 1233: GFRBED previously reported as: 104 H ZTIXHDL9333-93-33 02:50:00* Test Item Value Reference Range Interpretation Comments AMMONIA (test code = AMM) 20 umol/L 0-35 - DUP VEIN SDI3779-00-78 02:41:00 Name: DIANE SIMEON [facility] : 1955 Age/S: 64 / F [address] [place] [address] Unit #: [id number] Loc: [place] [address] Phys: Stanley Acosta MD Acct: [id number] Dis Date: Status: REG ER PHONE #: [phone] Exam Date: 08/15/2019 0158 FAX #: [phone] Reason: PAIN AND SWELLING EXAMS: CPT CODE: [id number] DUP VEIN TYLER 00271 EXAM: DUP VEIN TYLER: 08/16/2018, 0101 hours [...] 1 Signed Report (CONTINUED) Name: DIANE SIMEON [facility] : 1955 Age/S: 64 / F [address] [place] [address] Blvd Unit #: [id number] Loc: [place] [address] Phys: Stanley Acosta MD Acct: [id number] Di s Date: Status: REG ER PHONE #: Exam Date: 08/15/2019157 FAX #: Reason: PAIN AND SWELLING EXAMS: CPT CODE: [id number] DUP VEIN TYLER 72628 <Continued> SL: JSYED-H at 0241 Reported and signed by: Jonathan Molina M.D. CC: Stanley Acosta MD Technologist: Alla Blas RDMS(Carolyn) Trnscb Date/Time: 08/16/2019 (240) [email or web address] Orig Print D/T: S: 08/16/2019 (0244) Probe: PAGE 2 Signed Report CBC W/AUTO YLNQ6079-24-95 00:47:00* Test Item Value Reference Range Interpretation [...] REQUIRED (test code = MDIFF) NO PLT GYYCHUDKKK4905-28-18 00:47:00* Test Item Value Reference Range Interpretation Comments PLATELET ESTIMATE (test code = PLTEST) 84-105 THOUSAND ADEQUATE PLATELET MORPHOLOGY (test code = PLTMORPH) LARGE PLATELETS URINALYSIS TQCYEIEN3179-82-10 00:38:00* Test Item Value Reference Range Interpretation [...] 2+ /LPF NONE SEEN A COMPREHENSIVE METABOLIC [id number] 00:35:00* Test Item Value Reference Range Interpretation [...] code = ALKP) 177 IUnit/L 20-125 H DQVNTPELJOB5090-16-45 00:35:00* Test Item Value Reference Range Interpretation Comments PHOSPHOROUS (test code = PHOS) 2.5 MG/DL 2.5-4.9 N ASRLROURH9816-07-64 00:35:00* Test Item Value Reference Range Interpretation Comments MAGNESIUM (test code = MAG) 1.70 mg/dL 1.8-2.4 L UQEPEGTO-J0204-50-03 00:35:00* Test Item Value Reference Range Interpretation Comments TROPONIN-I (test code = TROPI) < 0.015 ng/mL 0.000-0.045 N Negative: <= 0.045 Positive: >= 0.046 Correlation with serial results, other cardiac markers andclinical findings is necessary to determine the clinicalsignificance of this result. Results using different methodologies should not be comparedto one another as quantitative results may vary by method. PROTHROMBIN [id number] 00:27:00* Test Item Value Reference Range Interpretation [...] Infarction (to prevent recurrent infarct). THROMBOPLASTIN TIME LGRRGWF4974-68-17 00:27:00* Test Item Value Reference Range Interpretation Comments THROMBOPLASTIN TIME PARTIAL (test code = PTT) 43.6 Seconds 25.0-39. 5 H Therapeutic Range: 50.4 - 88.3 Seconds Effective 11/27/2018 CBC W/AUTO [id number] 00:19:00* Test Item Value Reference Range Interpretation [...] REQUIRED (test code = MDIFF) NO PLT KIESNVUOFZ7971-07-31 00:19:00* Test Item Value Reference Range Interpretation Comments PLATELET ESTIMATE (test code = PLTEST) THOUSAND ADEQUATE CBC W/AUTO [id number] 00:16:00* Test Item Value Reference Range Interpretation [...] REQUIRED (test code = MDIFF) NO PLT XTJNFQYXZD3033-47-06 00:16:00* Test Item Value Reference Range Interpretation Comments PLATELET ESTIMATE (test code = PLTEST) THOUSAND ADEQUATE CBC W/AUTO [id number] 00:15:00* Test Item Value Reference Range Interpretation [...] NO - XR FOOT 3 + V [id number] 23:36:00 FAX: Stanley Prater MD [phone] [place]: St: REG Name: DIANE CHEN [facility] : [birth year] Age/S: 64/F [address] [place] [address] Unit #: [id number] Loc: [place] [address] Phys: Stanley Acosta MD Acct: [id number] Dis Date: Status: REG ER PHONE #: [phone] Exam Date: 08/15/20192317 FAX #: [phone] Reason: PAIN AND SWELLING EXAMS: CPT CODE: [id number] XR FOOT 3 + [place] [address] PROCEDURE: Right foot serie s radiographs, 3 [...] moderate to severe soft tissue edema. SL: BARBH at 2336 Reported and signed by: Gary Dickinson M.D. CC: Stanley Acosta MD Technolo gist: Gary Traylor, RT(R) Trnscrd Date/Time/B y: 08/15/2019 (2336) : By: [email or web address] Orig Print D/T: S: 08/15/2019 (42 18) PAGE 1 Signed Report BASIC METABOLIC [id number] 07:52:00* Test Item Value Reference Range Interpretation [...] CA) 7.5 mg/dL 8.0-10.5 L CBC W/AUTO [id number] 07:37:00* Test Item Value Reference Range Interpretation [...] DIFF REQUIRED (test code = MDIFF) NO [id number] 05:19:00* Test Item Value Reference Range Interpretation Comments AMMONIA (test code = AMM) 57 umol/L 0-35 H BASIC METABOLIC [id number] 07:43:00* Test Item Value Reference Range Interpretation [...] code = CA) 7.9 mg/dL 8.0-10.5 L [id number] 07:43:00* Test Item Value Reference Range Interpretation Comments MAGNESIUM (test code = MAG) 1.60 mg/dL 1.8-2.4 L CBC W/AUTO [id number] 07:16:00* Test Item Value Reference Range Interpretation [...] code = MDIFF) NO ALPHA FETOPROTEIN TUMOR [id number] 04:07:00* Test Item Value Reference Range Interpretation Comments ALPHA FETOPROTEIN TUMOR MARKER (test code = AFPTM) 4.7 ng/mL 0.0 -8.3 [facility] Electrochemiluminescence Immunoassay(ECLIA)Values obtained with different assay methods or kits cannotbe used interchangeably. Results cannot be interpreted asabsolute evidence of the presence or absence of malignantdisease.This test is not interpretable in females.Performed At: [facility] [id number] [place], [place] [id number] Kyle L MD Ph:[phone] NOTIFIED [facility] METABOLIC [id number] 06:04:00* Test Item Value Reference Range Interpretation [...] code = CA) 7.5 mg/dL 8.0-10.5 L [id number] 06:04:00* Test Item Value Reference Range Interpretation Comments PHOSPHOROUS (test code = PHOS) 2.0 MG/DL 2.5-4.9 L [id number] 06:04:00* Test Item Value Reference Range Interpretation Comments MAGNESIUM (test code = MAG) 1.60 mg/dL 1.8-2.4 L BASIC METABOLIC [id number] 05:58:00* Test Item Value Reference Range Interpretation [...] code = CA) 7.5 mg/dL 8.0-10.5 L [id number] 05:58:00* Test Item Value Reference Range Interpretation Comments PHOSPHOROUS (test code = PHOS) MG/DL 2.5-4.9 [id number] 05:58:00* Test Item Value Reference Range Interpretation Comments MAGNESIUM (test code = MAG) 1.60 mg/dL 1.8-2.4 L CBC W/AUTO [id number] 05:49:00* Test Item Value Reference Range Interpretation [...] DIFF REQUIRED (test code = MDIFF) NO [id number] 04:34:00* Test Item Value Reference Range Interpretation Comments AMMONIA (test code = AMM) 54 umol/L 0-35 H [id number] 05:17:00* Test Item Value Reference Range Interpretation Comments AMMONIA (test code = AMM) 41 umol/L 0-35 H BASIC METABOLIC [id number] 05:16:00* Test Item Value Reference Range Interpretation [...] code = CA) 8.0 mg/dL 8.0-10.5 N [id number] 05:16:00* Test Item Value Reference Range Interpretation Comments PHOSPHOROUS (test code = PHOS) 2.3 MG/DL 2.5-4.9 L [id number] 05:16:00* Test Item Value Reference Range Interpretation Comments MAGNESIUM (test code = MAG) 1.90 mg/dL 1.8-2.4 BASIC METABOLIC [id number] 05:15:00* Test Item Value Reference Range Interpretation [...] code = CA) 8.0 mg/dL 8.0-10.5 N SMHEXMYFHDC5289-53-02 05:15:00* Test Item Value Reference Range Interpretation Comments PHOSPHOROUS (test code = PHOS) MG/DL 2.5-4.9 SVNGJGJJI2731-08-98 05:15:00* Test Item Value Reference Range Interpretation Comments MAGNESIUM (test code = MAG) 1.90 mg/dL 1.8-2.4 CBC W/AUTO [id number] 05:05:00* Test Item Value Reference Range Interpretation [...] = MDIFF) NO - XR CHEST 1 [id number] 04:46:00 FAX: Yoana Humphries MD [phone] [place]: St: [facility] FAX: Lurdes Carrasco [phone] Name: DIANE SIMEON [facility] : 1955 Age/S: 64/F [address] [place] [address] Unit #: [id number] Loc: G.M[address] [place] [address] Phys: Lurdes Harrison MD Acct: [id number] Dis Date: Status: ADM IN PHONE #: [phone] Exam Date: 07/21/20190 FAX #: [phone] Reason: confirm NGT placement EXAMS: CPT CODE: [id number] XR CHEST 1 V 94808 EXAM: CR, XR chest one view: 07/21/2019, [...] at 0446 Rep orted and signed by: Jonatahn Molina M.D. CC: Yoana Humphries MD; Lurdes Harrison MD Technologist: RT Nick(R) Trnscrd Date/Time/By: 07/21/2019 (0446) : By: [email or web address] Orig Print D/T: S: 07/21/2019 (0450) PAGE 1 Signed Report - ABDOMEN LTD 2019-07-20 18:24:00 Name: DIANE SIMEON [facility] : 1955 Age/S: 64 / F [address] [place] [address] Unit #: [id number] Loc: [place] [address] Phys: Lucio Ortega Acct: [id number] Dis Date: Status: ADM IN PHONE #: [phone] Exam Date: 07/20/2019 180 FAX #: [phone] Reason: liver cirrhosis;elevated lfts EXAMS: CPT CODE: [id number] US ABDOMEN LTD 84865 Procedure: Right Upper Quadrant Ultrasound. Clinical Indication: [...] 1 Signed Report (CONTINUED) Name: DIANE SIMEON [facility] : 1955 Age/S: 64 / F [address] [place] [address] Unit #: [id number] Loc: [place] [address] Phys: Lucio Ortega Acct: [id number] D is Date: Status: ADM IN PHONE #: [phone] Exam Date: 07/20/2019 180 FAX #: Reason: liver cirrhosis;elevated lfts EXAMS: CPT CODE: [id number] [place] [address] <Continued> SL: OCO- H at 1824 Reported and signed by: Mekhi Cates M.D. CC: Lucio Ortega; Yoana Humphries MD Technologist: Afshan Cisneros RDMS(AB)(OB) Trnscb Date/Time: 07/20/2019 (1823) [email or web address] Orig Print D/T: S: 07/20/2019 (1826) Probe: PAGE 2 Signed Report ARTERIAL BLOOD [id number] 15:03:00* Test Item Value Reference Range Interpretation [...] = PEEPA) 5 cmH2O Performed by certified chinchilla machine operator at [facility] ABG TEMPERATURE (test code = TEMPA) 98.0 F ABG SITE (test code = SITEA) R Rad PREDICTED AA GRADIENT (test code = AP) 62 PREDICTED PO2 (test code = OP) 179 a/A RATIO (test code = RATIO) 0.76 TCO2 ARTERIAL (test code = TCO2A) 22 A-A GRADIENT (test code = AAGRADE) 58 - XR CHEST 1 [id number] 07:39:00 FAX: Ana Sosa [phone] [place]: St: [facility] FAX: Yoana Humphries MD [phone] Name: SERGEIDIANE LLOYD [facility] : 1955 Age/S: 64/F [address] [place] [address] Unit #: [id number] Loc: [address] [place] [address] Phys: Ana Sosa MD Acct: [id number] Dis Date: Status: ADM IN PHONE #: [phone] Exam Date: 07/20/2019624 FAX #: [phone] Reason: sob EXAMS: CPT CODE: [id number] XR CHEST 1 V 59511 Patient: DIANE SIMEON. : 1955; Age: 64 years; Gender: Female. MR: [id number]. Ordering physician: Ana Sosa MD. PORTABLE CHEST [...] No infiltrate, pleural effusion or pneumothorax. SL: [id number] at 0739 Reported and signed by: Mitchell Baker M.D. CC: Ana Sosa MD; Yoana Humphries MD Technologist: RT Vero(R) Trnscrd Date/Time/By: 07/20/2019 (0739) : By: [email or web address] Orig Print D/T: S: 07/20/2019 (0786) PAGE 1 Signed Report COMPREHENSIVE METABOLIC [id number] 05:34:00* Test Item Value Reference Range Interpretation [...] code = ALKP) 126 IUnit/L 20-125 H TZFYEMYKZVM3849-76-34 05:34:00* Test Item Value Reference Range Interpretation Comments PHOSPHOROUS (test code = PHOS) 1.9 MG/DL 2.5-4.9 L AZHBVZKFX9288-13-98 05:34:00* Test Item Value Reference Range Interpretation Comments MAGNESIUM (test code = MAG) 1.60 mg/dL 1.8-2.4 L NGDVNPS6332-77-51 05:18:00* Test Item Value Reference Range Interpretation Comments AMMONIA (test code = AMM) 70 umol/L 0-35 H CBC W/AUTO [id number] 05:12:00* Test Item Value Reference Range Interpretation [...] REQUIRED (test code = MDIFF) NO PROTHROMBIN [id number] 05:10:00* Test Item Value Reference Range Interpretation [...] Infarction (to prevent recurrent infarct). ARTERIAL BLOOD [id number] 17:10:00* Test Item Value Reference Range Interpretation [...] = PEEPA) 5 cmH2O Performed by certified chinchilla machine operator at [facility] ABG TEMPERATURE (test code = TEMPA) 98.0 F ABG SITE (test code = SITEA) R Rad PREDICTED AA GRADIENT (test code = AP) 103 PREDICTED PO2 (test code = OP) 293 a/A RATIO (test code = RATIO) 0.63 TCO2 ARTERIAL (test code = TCO2A) 22 A-A GRADIENT (test code = AAGRADE) 147 - XR CHEST 1 [id number] 16:23:00 FAX: Yoana Humphries MD [phone] [place]: St: [facility] FAX: Shane Guevara MD [phone] Name: DIANE SIMEON [facility] [place] : 1955 Age/S: 64/F [address] [place] [address] Unit #: [id number] Loc: [place] [address] Phys: Shane Guevara MD Acct: [id number] Dis Date: Status: ADM IN PHONE #: [phone] Exam Date: 07/19/2019 1620 FAX #: [phone] Reason: Respiratory Failure EXAMS: CPT CODE: [id number] XR CHEST 1 V 30134 1 VIEW CXR. PORTABLE EXAM 4:06 PM [...] inspiration. END OF IMPRESSION SL: WR1-H at 5488 Reported and signed by: Bj Kim M.D. CC: Yoana Humphries MD; Shane Guevara MD Technologist: Wen Lehman RT(R); Radha Lucas RT(R) [facility] Date/Time/By: 07/19/2019 (6021) : By: Brenda Orig Print D/T: S: 07/19/2019 (8410) PAGE 1 Signed Report CBC W/AUTO [id number] 13:58:00* Test Item Value Reference Range Interpretation [...] REQUIRED (test code = MDIFF) NO PLT [id number] 13:58:00* Test Item Value Reference Range Interpretation Comments PLATELET ESTIMATE (test code = PLTEST) 60-75 THOUSAND ADEQUATE PLATELET MORPHOLOGY (test code = PLTMORPH) NORMAL DRUGS OF ABUSE SCREEN [id number] 13:49:00* Test Item Value Reference Range Interpretation [...] non-medical purposes. UA RFLX MICR CULT IF [id number] 13:33:00* Test Item Value Reference Range Interpretation [...] no other srcSpecimen Description: CLEAN CATCHCOMPREHENSIVE METABOLIC [id number] 13:33:00* Test Item Value Reference Range Interpretation [...] code = ALKP) 156 IUnit/L 20-125 H [id number] 13:33:00* Test Item Value Reference Range Interpretation Comments LIPASE (test code = LIP) 231 IUnit/L 73-393 N TSH REFLEX TO [id number] 13:33:00* Test Item Value Reference Range Interpretation Comments TSH REFLEX TO FT4 (test code = TSHREFLEX) 2.30 IU/mL 0.42-5.47 N [id number] 13:33:00* Test Item Value Reference Range Interpretation Comments ACETAMINOPHEN (test code = ACET) < 2 ug/mL 10-30 L HBDSIOPMSV9852-42-30 13:33:00* Test Item Value Reference Range Interpretation Comments SALICYLATE (test code = MINH) < 1.8 mg/dL 2.8-20.0 L EKFRZOQ9217-59-46 13:33:00* Test Item Value Reference Range Interpretation Comments ALCOHOL (test code = ALC) < 0.003 G/dL <0.003 Et hyl Alcohol Interpretation: 0.100 gm/dL - Legally Intoxicated 0.300-0.400 gm/dL - Severely Intoxicated >0.400 gm/dL - Potentially LethalResults are for Medical purposes only, and not for Legal orEmployment evaluation purposes. CBC W/AUTO [id number] 13:26:00* Test Item Value Reference Range Interpretation [...] REQUIRED (test code = MDIFF) NO PLT [id number] 13:26:00* Test Item Value Reference Range Interpretation Comments PLATELET ESTIMATE (test code = PLTEST) THOUSAND ADEQUATE CBC W/AUTO [id number] 13:26:00* Test Item Value Reference Range Interpretation [...] REQUIRED (test code = MDIFF) NO PLT [id number] 13:26:00* Test Item Value Reference Range Interpretation Comments PLATELET ESTIMATE (test code = PLTEST) THOUSAND ADEQUATE - CT HEAD/BRAIN W/O [id number] 13:22:00 Name: DIANE SIMEON [facility] : 1955 Age/S: 64 / F [address] [place] [address] Blvd Unit #: [id number] Loc: [place] [address] Phys: Shane Guevara MD Acct: [id number] Dis Date: Status: REG ER PHONE #: [phone] Exam Date: 07/19/2019 1305 FAX #: [phone] Reason: Altered Mental Status EXAMS: CPT CODE: [id number] CT HEAD/BRAIN W/O CONT 12455 PROCEDURE: CT HEAD WITHOUT CONTRAST INDICATION: Altered [...] 1 Signed Report (CONTINUED) Name: DIANE SIMEON [facility] : 1955 Age/S: 64 / F [address] [place] [address] Unit #: [id number] Loc: [place] [address] Phys: Julissa Guevara Acct: [id number] Dis Date: Status: REG ER PHONE #: Exam Date: 07/19/2019 1305 FAX #: [phone] Reason: Altered Mental Status EXAMS: CPT CODE: [id number] CT HEAD/BRAIN W/O CONT 81655 <Continued> infarct. 3. Intracranial atherosclerosis. If there is continued clinical concern, further imaging options include MRI. SL: [id number] at 1322 Reported and signed by: Juan Jose Pelaez M.D. CC: Shane Guevara MD Technologist:Albina Rodriguez, RT(R)(CT) CTDI: DLP: Trnscb Date/Time: 07/19/2019 (1322) Kaela Orig Print D/T: S: 07/19/2019 (1325) PAGE 2 Signed Report COMPREHENSIVE METABOLIC [id number] 13:13:00* Test Item Value Reference Range Interpretation [...] TOTAL (test code = ALKP) IUnit/L 20-125 [id number] 13:13:00* Test Item Value Reference Range Interpretation Comments LIPASE (test code = LIP) 231 IUnit/L 73-393 N TSH REFLEX TO [id number] 13:13:00* Test Item Value Reference Range Interpretation Comments TSH REFLEX TO FT4 (test code = TSHREFLEX) IU/mL 0.42-5.47 KBHNMMHSQMQRF3626-32-14 13:13:00* Test Item Value Reference Range Interpretation Comments ACETAMINOPHEN (test code = ACET) ug/mL 10-30 [id number] 13:13:00* Test Item Value Reference Range Interpretation Comments SALICYLATE (test code = MINH) mg/dL 2.8-20.0 SRRQJVE4388-70-60 13:13:00* Test Item Value Reference Range Interpretation Comments ALCOHOL (test code = ALC) G/dL <0.003 - XR CHEST 1 [id number] 13:13:00 FAX: Shane Guevara MD [phone] [place]: [address]: REG Name: DIANE CHEN [facility] [place] : [birth year] Age/S: 64/F [address] [place] [address] Bl Unit #: [id number] Loc: [place] [address] Phys: Shane Guevara MD Acct: [id number] Dis Date: Status: REG ER PHONE #: [phone] Exam Date: 07/19/2019 1310 FAX #: [phone] Reason: Altered Mental Status EXAMS: CPT CODE: [id number] XR CHEST 1 V 02959 CHEST 1 VIEW: 07/19/2019 COMPARISON: NONE CLINICAL HISTORY: Altered Mental Status FINDINGS: Cardiomediastinal silhouette is borderline in size. No infiltrates or pulmonary edema is present. There is no pne umothorax. IMPRESSION: No acute pulmonary dis ease. at 13 13 Reported and signed by: Lupillo Mena M.D. CC: Shane Guevara MD Techno logist: Taina Melgoza, RT(R); RT Vinod(R) Trnscrd Date/Time /By: 07/19/2019 (1313) : By: [email or web address] Orig Print D/T: S: 07/19/2019 ( 1398) PAGE 1 Signed Report PROTHROMBIN [id number] 13:11:00* Test Item Value Reference Range Interpretation [...] Infarction (to prevent recurrent infarct). THROMBOPLASTIN TIME [id number] 13:11:00* Test Item Value Reference Range Interpretation Comments THROMBOPLASTIN TIME PARTIAL (test code = PTT) 34.2 Seconds 25.0-39. 5 N Therapeutic Range: 50.4 - 88.3 Seconds Effective 11/27/2018 [id number] 13:11:00* Test Item Value Reference Range Interpretation Comments AMMONIA (test code = AMM) 225 umol/L 0-35 H TROPONIN-I [id number] 12:51:00* Test Item Value Reference Range Interpretation Comments TROPONIN-I RAPID (test code = TROPIRAP) 0.02 ng/mL 0.00-0.08 N Performed by certified chinchilla machine operator at [facility] Negative: <= 0.08 Positive: >= 0.09An elevated troponin value alone is not sufficient todiagnose a myocardial infarction. Rather, the patient sclinical presentation (history, physical exam) and ECGshould be used in conjunction with troponin in thediagnostic evaluation of suspected myocardial infarction. Aserial sampling protocol is recommended to facilitate the identification of temporal changes in troponin levels characteristic of [place]. CHEMISTRY 8 [id number] 12:45:00* Test Item Value Reference Range Interpretation [...] code = GFRBED) 89 ML/MIN CHEMISTRY 8 QIPJMUQ0316-06-32 12:45:00* Test Item Value Reference Range Interpretation Comments ISTAT-SODIUM (test code = NAP) 139 MMOL/L 134-147 N ISTAT-POTASSIUM (test code = KP) 4.8 MMOL/L 3.4-5.0 N ISTAT-CHLORIDE (test code = CLP) 110 MMOL/L 100-108 H Performed by certified chinchilla machine operator at [facility] ISTAT CARBON DIOXIDE (test code = ISTAT-CO2) 20.0 mmol/L 21-33 L ISTAT CALCIUM IONIZED (test code = ISTAT-CHEYANNE) 1.11 MG/DL 1.12-1.3 2 L ISTAT-GLUCOSE (test code = GLUP) 115 MG/DL 70-110 H ISTAT-BUN (test code = BUNP) 23 MG/DL 7-18 H BEDSIDE CREATININE (test code = CREATBED) 0.7 MG/DL 0.6-1.3 N GLOMERULAR FILTRATION RATE POC (test code = GFRBED) 89 ML/MIN CHEM [id number] 20:52:0030[facility]ann[facility] QJUNY1047-01-47 20:52:000.6 [facility] HermannCHEM BGNAS3297-74-65 20:52:001.7[facility] HermannCHEM PANEL 2016-10-18 20:52:19825Cdpzbcpo HermannCHEM IFADS3069-76-65 20:52:0028[facility]annCHEM XMHHP8477-93-28 20:52:002.2[facility]annCHEM TEGQF9857-81-16 20:52:005.8[facility]annCHEM DUSPV9868-84-69 20:52:001.1[facility]annCHEM FZQOY5982-33-22 20:52:000.6[facility] HermannCHEM UDRIC5139-10-83 20:52:003.6 [facility] HwvxlvdTAJKNWBMMXYD1597-41-10 20:52:0012.0[facility] HermannELECTROLYTES 2016-10-18 20:52:0094[facility] GzfkgheVVWWFIVSVCRP5033-16-68 20:52:007.6[facility] VgqenyqWZSEAVEDMAJD5198-22-54 20:52:31979Pamnzagi FmumpfeEPTVAIZXFQRK2937-94-42 20:52:0024[facility] UezlbguYGKYZLFSQQFW1218-38-79 20:52:004.0[facility] SAKVHZWBEJVN7547-55-56 20:52:68224Nyqzqtla DsvlvurYINZHFLICMYO6064-24-38 20:52:72705Cnzikokn YizaogiRSYHKMQTCMUW6988-02-85 20:52:008[facility] MIMYKYWVLTHE5082-68-18 20:52:000.68[facility] HrkbaesLWCLIMNWMX5433-36-05 20:52:00 50[facility] XdffappQAMHVUNUYM7493-06-81 20:52:00* Test Item Value Reference Range Interpretation Comments PTT (test code = PTT) 36.7 s 22.9-35.8 [facility] NwixcggSGQIAJQEVA5111-72-14 20:52:001.51[facility] HermannHEMATOLOGY 2016-10-18 20:52:00* Test Item Value Reference Range Interpretation Comments PT (test code = PT) 18.5 s 12.0-14.7 [facility] VfenaatRYLTKFQZXR1832-53-71 20:52:003.3[facility] HermannCHEM PANEL 2016-09-21 10:16:51153Fvzoeqxe HermannCHEM VJHLK6949-93-57 10:16:0066.0[facility] HermannCHEM PJHLK2218-08-69 10:16:001.2[facility]annCHEM YPITB1694-67-55 10:16:009[facility]annCHE[facility] NWVPO0686-81-35 10:16:003.6[facility]annCHE[facility] FHGLQ6882-27-85 10:16:009.5[facility] HermannCHEM OROWN3581-44-24 10:16:000.6 [facility]annCHE[facility] RKMIE6368-28-63 10:16:0041[facility] HermannCHEM PANEL 2016-09-21 10:16:001.5[facility] HermannCHEM PBXFB5643-77-27 10:16:45538Zscoktqj HermannCHEM NUTEK5359-12-45 10:16:46011Xutwlipq [facility]annCHEM KMAHL0543-47-94 10:16:002.1[facility]annCHEM HYKGR3596-72-71 10:16:0023[facility] HermannCHEM RAULJ8550-09-34 10:16:005[facility]annCHEM PLKFF0031-45-28 10:16:0075[facility]annCHE[facility] JQMGB6401-33-49 10:16:003.5[facility]annCHE[facility] EVDHX2740-93-59 10:16:43723Ylihnsxk HermannCHEM ZINBV0148-49-01 10:16:000.53[facility] HermannCHEM SZLGP1785-33-44 10:16:0023[facility]annCHEM SACUW9907-97-51 10:16:005.7 [facility]annCHE[facility] YMONV3229-71-15 10:16:08640Rpivxuic HermannCHEM PANEL 2016-09-21 10:16:007.3[facility] MeuxqktLUYCISSQRQ4504-58-30 10:16:000.3[facility] AaogbusNHBYPCMFNM7405-52-86 10:16:000.2[facility] WkivtjwGGSQIUOEYI4103-82-88 10:16:004.1[facility] IkvcjnrFOEGCTCTKV8524-43-42 10:16:001.1[facility] VMDXHKHIWB1874-84-25 10:16:000.7[facility] ReoullwEMNAXBFFVQ0272-58-32 10:16:002.4 [facility] SixmdzsPXONYMHXZM5920-69-24 10:16:0059.0[facility] HermannHEMATOLOGY 2016-09-21 10:16:0027.6[facility] NpevsidWYEVVGMUSQ9466-71-45 10:16:008.6[facility] JiiemwfLKNEHQXTGM3768-43-58 10:16:0010.0[facility] LslebjuWPXYKVECEF1361-13-86 10:16:0034.4[facility] OtgxvdjZESXBFSXHK2992-25-41 10:16:00* Test Item Value Reference Range Interpretation Comments MCH (test code = MCH) 31.1 pg 27.0-31.0 [facility] DbpabzaJTPINEMKRY5092-78-52 10:16:0015.6[facility] HermannHEMATOLOGY 2016-09-21 10:16:0048[facility] RjsbfopWHROUGCSGG7188-57-20 10:16:0090.4[facility] JhusxduUMQJOWCTWH8144-14-46 10:16:004.0[facility] XajfobtVZPELWCWFM8555-50-72 10:16:0028.7[facility] CejnssiPXHGQRANFB3035-18-31 10:16:003.18[facility] LTLUTSCWJA7835-53-12 10:16:009.9[facility] CbvrtefNOEULZYHVW9031-89-93 10:16:00 1:160 *ABN*(09/21/16 4:16 AM)[facility] NrtygfpTBETNCXNCS5632-70-29 10:16:00Negative *NA*(09/21/16 4:16 AM)[facility] ZothlznYRKMGEJEPC2876-25-68 10:16:00Negative *NA*(09/21/16 4:16 AM)[facility] IadykfhMMCVHPCSBI3169-95-84 10:16:00Negative *NA*(09/21/16 4:16 AM)[facility] DctpgrpFNRBNHOLYJ0514-39-26 10:16:00Negative *NA*(09/21/16 4:16 AM)[facility] KvyvpwzQSIJRLNKFV6386-59-62 10:16:00Positive *ABN*(09/21/16 4:16 AM)[facility] XbaivmiWFPEJS9067-78-54 10:16:003.00[facility] DwzroslFVYILZ1039-94-07 10:16:009[facility] TbaoqaoPDJKCE2482-72-74 10:16:0063 [facility] WnxbzjmSUWIUE4465-53-52 10:16:0036[facility] IkkkmciBBZWDW9897-09-33 10:16:27822Okspymlc GudssdcLKSTMF5926-89-88 10:16:0044[facility] HermannANEMIA NTJOF2003-50-96 12:29:0019.6[facility] HermannANEMIA QCGES2047-27-38 12:29:18548 [facility] HermannANEMIA MFYFJ5656-92-23 12:29:0034[facility] HermannANEMIA STUDY 2016-09-20 12:29:82396Nsfsoupd HermannANEMIA GPZCF2717-84-00 12:29:61448Xmqpgqqf HermannANEMIA BKYJZ6494-80-42 12:29:0053[facility] HermannANEMIA TALPZ4010-28-58 12:29:0015[facility] HermannCHEM PWRXZ5495-89-41 12:29:0015[facility] HermannCHEM JXUEI2851-85-33 12:29:0010.8[facility] HermannCHEM VOZAM2175-61-56 12:29:000.6 [facility] HermannCHEM PBWOD5007-35-02 12:29:003.3[facility] HermannCHEM PANEL 2016-09-20 12:29:07146Ysndrotn HermannCHEM KHXSH7255-35-55 12:29:96502Enrosvnv HermannCHEM BRAAK1683-98-13 12:29:003.8[facility] HermannCHEM KYUFD8384-54-78 12:29:74337Dgxphhrg HermannCHEM XDSRE2467-09-44 12:29:000.46[facility] HermannCHEM HBZBF7184-26-09 12:29:007[facility] HermannCHEM TVXQJ3966-34-43 12:29:0075[facility] HermannCHEM ZQUSG3672-41-89 12:29:001.8[facility] HermannCHEM SJGAU1596-17-89 12:29:11293Jlfqhmns HermannCHEM UAWNE7307-35-03 12:29:0037[facility] HermannCHEM BELHP5397-51-78 12:29:0020[facility] HermannCHEM UNALL1634-53-81 12:29:001.9 [facility] HermannCHEM KPZTV6608-96-64 12:29:005.2[facility] HermannCHEM PANEL 2016-09-20 12:29:007.1[facility] HermannCHEM EJBDA8341-67-22 12:29:0022[facility] CzvqewtEKNVMLJWRH0433-82-80 12:29:000.6[facility] YagpybgTWNMNELRKT6744-32-69 12:29:002.0[facility] LcaoyqgPZXZNDKVUK2589-99-63 12:29:001.1[facility] [place] VQLSZKHCJC1702-74-53 12:29:000.3[facility] DpkpkwkZSFSZRXJNB0878-82-18 12:29:000.1 [facility] AsytmhbDTICLYJBIW3365-17-90 12:29:0055.3[facility] HermannHEMATOLOGY 2016-09-20 12:29:0030.8[facility] WubcdnqNDZATTJOZR3521-72-03 12:29:009.4[facility] KrdvwiyDPDBQRXLXC0043-37-07 12:29:003.9[facility] BmxdutxRBBPRCBXNH4341-88-19 12:29:00* Test Item Value Reference Range Interpretation Comments PT (test code = PT) 21.6 s 12.0-14.7 [facility] VytdjgdKSRCOYIEZO7159-80-76 12:29:001.84[facility] HermannHEMATOLOGY 2016-09-20 12:29:0015.4[facility] NukndhdAUKIMMCAGT9037-70-62 12:29:0010.6[facility] VctwcmvFAJPVWEYUG7870-65-92 12:29:0046[facility] MeypeabQYEVXVTPRE8853-94-56 12:29:009.3[facility] RosjfsvKIFYWMTDAZ8417-09-31 12:29:002.98[facility] [place] [facility] KKULEDNOBT3669-30-39 12:29:003.6[facility] MomnmdkBWZMUAQTUW9340-47-93 12:29:00* Test Item Value Reference Range Interpretation Comments MCH (test code = MCH) 31.1 pg 27.0-31.0 [facility] UrwguuvSDMIRZDRFB7118-36-94 12:29:0034.5[facility] HermannHEMATOLOGY 2016-09-20 12:29:0026.9[facility] UugjtrtNZFEWMUGMV9377-11-03 12:29:0090.1[facility] LsxsdnoSUWKKKDYRB1362-72-97 12:29:002.0[facility] GtdncgvRQNXAPRVYQ6093-72-76 12:29:00Negative *NA*(09/20/16 6:29 AM)[facility] WlltkmiBBXNFWPDPX9700-67-80 12:29:00Negative *NA*(09/20/16 6:29 AM)[facility] NhblpcdGDPLXUOWEZ4316-37-70 12:29:00Negative *NA*(09/20/16 6:29 AM)[facility] KccloifJTCTZBPKRC8487-03-74 12:29:00Negative *NA*(09/20/16 6:29 AM)[facility] QtfxvmeBTBBIORKQF5530-40-30 12:29:00Negative *NA*(09/20/16 6:29 AM)[facility] GjwaxqcMUGHVWTCBW6629-73-50 12:29:00Negative *NA*(09/20/16 6:29 AM)[facility] GvnvdnxHTOAODXCTF9009-22-35 12:29:00Negative *NA*(09/20/16 6:29 AM)[facility] JpuxlhiLFUBGCHWDR8470-21-88 12:29:00Negative *NA*(09/20/16 6:29 AM)[facility] RyirkzjGNSPDWKZSO6489-77-17 12:29:00Positive *NA*(09/20/16 6:29 AM)[facility] YizqlwgEZIWYZJNAK3215-46-66 12:29:00Negative *NA*(09/20/16 6:29 AM)[facility] AdeuncrLLOWKNPNUA5156-23-61 12:29:00<3.1[facility]annCHEM OAQQI5023-11-18 11:43:002.1[facility]annCHE[facility] AOSJX2155-62-66 11:43:36621Ewqrjaeg HermannCHEM MKYCC2419-10-28 11:43:000.49 [facility]annCHE[facility] NRSFM8989-61-31 11:43:003.6[facility]annCHE[facility] PANEL 2016-09-19 11:43:17083Letpnwkr HermannCHEM XUFNV5934-11-63 11:43:0021[facility]annCHE[facility] RCLYS3989-20-18 11:43:68863Alnbrncq HermannCHEM GWJIB6898-44-83 11:43:0021[facility]annCHE[facility] BTBTQ3420-06-26 11:43:007.4[facility]annCHE[facility] AROYM6185-27-95 11:43:0010[facility]annCHE[facility] GMGEF8031-58-77 11:43:002.2 [facility]CHE[facility] TXHUS6842-61-80 11:43:005.9[facility]annCHEM PANEL 2016-09-19 11:43:0073[facility]annCHE[facility] SODSI9085-75-91 11:43:87238Xenogoww HermannCHEM UJCZO6636-39-41 11:43:0034[facility]annCHE[facility] BSEHN2774-10-11 11:43:001.5[facility]annCHE[facility] ERMNB5059-20-08 11:43:000.6[facility]annCHE[facility] QTBME9902-44-80 11:43:003.7[facility]annCHE[facility] EBUCI9713-22-40 11:43:0020 [facility]CHE[facility] YQFGC9810-53-10 11:43:0012.6[facility]annHEMATOLOGY 2016-09-19 11:43:001.2[facility] DiagvzjKSBKBMMTQC9078-47-75 11:43:000.4[facility] VpzctjjWOTHIJKATK5011-36-18 11:43:008.2[facility] AvhnvrjNONCJWTEGD1336-62-49 11:43:0027.5[facility] ZsykkujSASWGOIHHD9418-50-79 11:43:000.1[facility] [place] YNHUPHBEDT1034-34-59 11:43:002.7[facility] TvrujftDSSWJCUNVA3262-10-75 11:43:000.6 [facility] SjlmtizBCMDJUUJAR5760-05-13 11:43:002.3[facility] HermannHEMATOLOGY 2016-09-19 11:43:0061.4[facility] RmhkeloRACECGFZVB8586-66-26 11:43:0034.4[facility] QwpivdcERBTFYNYRT7096-58-82 11:43:0060[facility] GnsbaozAGTRMQPNPR9650-65-19 11:43:0015.3[facility] EbzuyqlTILPYWNPUG8559-16-05 11:43:00* Test Item Value Reference Range Interpretation Comments MCH (test code = MCH) 31.1 pg 27.0-31.0 [facility] UgiaqwePTVIHFCXMP7501-92-85 11:43:0090.4[facility] HermannHEMATOLOGY 2016-09-19 11:43:0010.6[facility] VawpkngSWNLZGJBRP1093-02-17 11:43:0029.6[facility] PhekgttSSMMWWZWCH3060-60-29 11:43:0010.2[facility] YaaeyneRFJHLVKUFC9537-32-11 11:43:003.28[facility] RbltldaFHMQQLLTGV9414-32-34 11:43:004.4[facility]annCHEM EPHJC6852-88-40 23:53:001.9[facility]annCHEM KQFBW4022-33-89 20:48:79957 [facility]annVIRAL - KFFRZZYM4588-34-92 20:48:00Negative (09/18/16 2:48 PM) [facility]annVIRAL - GWDTCHQW4077-97-17 20:48:00Negative (09/18/16 2:48 PM) [facility]annCARDIAC SJMWQXD9797-91-00 20:45:00<0.02[facility]annCARDIAC FYOHIAG2265-65-28 20:45:001.4[facility]annCARDIAC PQHTAXW6760-51-66 20:45:00 73[facility]annCARDIAC RKUMNVZ7080-61-61 20:45:001.9[facility]annCHEM OPMZO2985-83-92 20:45:002.6[facility] HermannDRUG ZYDDIC8371-39-58 20:45:00See Note *NA*(09/18/16 2:45 PM)[facility]annDR[facility] QCUZKW8998-98-17 20:45:00Negative *NA*(09/18/16 2:45 PM)[facility]annDR[facility] PFFJTK8149-56-10 20:45:00Negative *NA*(09/18/16 2:45 PM)[facility]annDR[facility] PFXRTC7844-42-10 20:45:00Negative *NA*(09/18/16 2:45 PM)[facility]annDR[facility] AIHYLT6977-17-50 20:45:00Negative *NA*(09/18/16 2:45 PM)[facility]annDR[facility] RPBQCX0577-55-54 20:45:00Negative *NA*(09/18/16 2:45 PM)[facility]annDR[facility] INAKTI6730-92-02 20:45:00Negative *NA*(09/18/16 2:45 PM)[facility]annDR[facility] GYNZTW3111-42-06 20:45:00Negative *NA*(09/18/16 2:45 PM)[facility] TxuojwgPAWHJHTLJX9850-44-62 20:45:00<0.003[facility] StfsrceXBWOQEPUDX5726-93-16 20:45:00<3[facility] JEFUI7885-59-27 20:45:00Negative (09/18/16 2:45 PM)[facility] GXYPO8038-57-36 20:45:001[facility] SBMFH4673-21-87 20:45:00Negative (09/18/16 2:45 PM)[facility] YEXZF2093-74-25 20:45:001[facility] AFELF6822-71-66 20:45:004.0[facility] PVCUH2897-66-72 20:45:006.0 [facility] YZEUL5328-38-40 20:45:00Clear (09/18/16 2:45 PM)[facility] AYGMH9528-82-17 20:45:001.027[facility] STOOL 2016-09-18 20:45:00Negative (09/18/16 2:45 PM)[facility] STOOL 2016-09-18 20:45:00Negative *NA*(09/18/16 2:45 PM)[facility]annCARDIAC ENZYMES 2016-04-29 08:01:00<0.02[facility] KMNBT7386-08-00 06:18:007 [facility] CNERP0075-98-73 06:18:001[facility] JVBLD4517-38-92 06:18:002.0[facility] HKQLO8476-32-12 06:18:00 Positive *ABN*(04/29/16 1:18 AM)[facility] BVWHE1592-69-13 06:18:00Negative *NA*(04/29/16 1:18 AM)[facility] HSSYP6154-32-86 06:18:00Small *ABN*(04/29/16 1:18 AM)[facility] XXXDC4198-71-74 06:18:00Small *ABN*(04/29/16 1:18 AM)[facility] BOKDX4051-58-24 06:18:005.0[facility] RIVNY1266-54-01 06:18:00Yellow *NA*(04/29/16 1:18 AM)[facility] IPUXJ0825-34-77 06:18:001.011[facility]INE AND SXBQO6207-98-63 06:18:00Clear (04/29/16 1:18 AM)[facility]ARDIAC ACYXFVK5958-23-51 05:39:0050[facility] IHMVYKB0590-47-30 05:39:00< 0.02[facility]AC APKQBEA2978-98-60 05:39:0058[facility] TNIEJMW1022-26-10 05:39:000.9[facility] BDYQVWJ2651-70-21 05:39:00 1.6[facility]annCHEM EIIJA9625-12-22 05:39:000.6[facility]annCHEM PANEL 2016-04-29 05:39:0094[facility]annCHEM ZXGSC9616-66-24 05:39:004.1[facility]annCHEM NEMXE9695-96-72 05:39:000.6[facility]annCHEM XJSFJ7721-41-19 05:39:003.3[facility]annCHEM KMLJU3029-32-99 05:39:10096Pwsochwo HermannCHEM YUOAL4548-64-11 05:39:002.6[facility]annCHEM ZBWAG6686-72-62 05:39:0021 [facility]annCHE[facility] ADGGQ8269-11-58 05:39:0027[facility]annCHEM PANEL 2016-04-29 05:39:008.2[facility]annCHEM ZJZEF4848-76-40 05:39:006.7[facility]annCHEM RTHTR0504-43-88 05:39:0010.3[facility]annCHEM FOFHA0558-59-73 05:39:001.5[facility]annCHEM ADOTL2978-96-91 05:39:82176Linbmnna HermannCHEM QAUIS7912-71-59 05:39:0038[facility]annCHEM VVUQZ3671-90-82 05:39:0016 [facility]annCHE[facility] SZPQQ9521-57-56 05:39:0079[facility]annCHEM PANEL 2016-04-29 05:39:0011[facility]annCHEM RQLJJ5692-07-20 05:39:000.70[facility]annCHEM SKFPB8371-06-13 05:39:22202Xvfkzvpd OoztaftCIERTKWLLH0031-34-30 05:39:00* Test Item Value Reference Range Interpretation Comments PTT (test code = PTT) 32.1 s 22.9-35.8 [facility] ZlyvpbfFQSFQDGOAN1447-25-84 05:39:001.42[facility]annHEMATOLOGY 2016-04-29 05:39:00* Test Item Value Reference Range Interpretation Comments PT (test code = PT) 17.7 s 12.0-14.7 [facility] VbvkkxoARRCGXQAMY5259-23-91 05:39:00* Test Item Value Reference Range Interpretation Comments MCH (test code = MCH) 30.6 pg 27.0-31.0 [facility] CixagbfPQUUJRIRHN1351-12-31 05:39:0090.3[facility]annHEMATOLOGY 2016-04-29 05:39:0011.3[facility] HlihfiaLJJLXJFDOP8631-81-64 05:39:003.68[facility] VziyagbDPZNEZQBFJ2320-98-64 05:39:0033.2[facility] IowjkmjPOFSZHYHQY5793-22-60 05:39:0010.9[facility] UkrokmbKEQFUERYRI6618-38-40 05:39:005.6[facility] LNHFSIFLSQ8691-16-62 05:39:0052[facility] NoxnjerBQONTBVZRH7772-57-53 05:39:0015.2 [facility] SokfvnnJIGIZERHHS4775-67-48 05:39:0033.9[facility] HermannHEMATOLOGY 2016-04-29 05:39:002.0[facility] WyndvuoAKDCCLHQVB0500-67-75 05:39:008.1[facility] EftevhfEWMUVRJVXI9653-34-09 05:39:000.9[facility] BieijngCGMUQMORTB4217-80-78 05:39:0063.2[facility] HjeuvinDMVASPMMIH7212-56-91 05:39:0025.8[facility] [place] VKTKNVGRXT8950-12-81 05:39:000.1[facility] FcskqhjFELLFQIMBO3806-32-87 05:39:001.4 [facility] PstcztsTKGIAIPMCY7805-39-63 05:39:000.1[facility]annHEMATOLOGY 2016-04-29 05:39:000.5[facility] IpoexocESMPWQVOOY4483-88-79 05:39:003.5[facility] HermannBEDSIDE GLUCOSE KEIGYBQ8756-29-93 16:42:92904Cszjivjk HermannBEDSIDE GLUCOSE HLRXJHI6555-90-35 12:53:97594Udlicopx HermannBEDSIDE GLUCOSE TESTING 2012-03-23 09:13:63649Byoifgit RmprzeoADIUIKURKR2192-63-93 08:39:0060[facility] NaeattuLUDKGLNKVV1723-93-61 08:39:39824Qlkialss NkgvhtgNLGURRMKQ0604-98-25 06:05:0019[facility] VvkscfrBOFSHWSUY0807-51-89 06:05:000.8[facility] SCNXCWVSP9884-88-09 06:05:03399Ajfqkgvz UiwdvpuLPSMSYIQY7422-64-89 06:05:003.7 [facility] TmqrkteOLYNCGHXI9023-32-17 06:05:43917Rpyuautx HermannCHEMISTRY 2012-03-23 06:05:007.8[facility] KlppfbkGKQHCCELE4216-81-71 06:05:53538Jlwprnvf MvjinfvPHNHMVYKR6639-06-09 06:05:007[facility] EanmqpgLOZGBJHLO1540-14-01 06:05:00 16.7[facility] XdwbqloCEQGGCMAB7798-30-75 06:05:002.2[facility] HermannCHEMISTRY 2012-03-23 06:05:001.8[facility] ZcboudgFMRCQVVNG8693-78-93 06:05:001.22[facility] VqxtumnVCOCABJVH5921-21-20 06:05:001.16[facility] GwdzkuiTOAGFOXGN1907-06-38 06:05:004.88[facility] BfsyvelXIRJJFKIS4275-57-30 06:05:004.64[facility] [place] [facility] CHCWZSFIAL2247-21-22 06:05:00* Test Item Value Reference Range Interpretation Comments PT (test code = PT) 15.4 s 12.0-14.[address] [facility] IayywfdJQMLWRMNUW4050-12-16 06:05:001.20[facility]annHEMATOLOGY 2012-03-23 06:05:00* Test Item Value Reference Range Interpretation Comments PTT (test code = PTT) 32.2 s 22.9-35.[address] [facility] IawtnzyOOBQDSDVDZ7822-55-59 06:05:007.8[facility]annHEMATOLOGY 2012-03-23 06:05:0011.8[facility] AemtymcOVLXUFFQHZ9911-76-09 06:05:003.77[facility] KxvlwhsJCAXUZIDXQ6378-04-23 06:05:0034.0[facility] RwrkcgyVLNOQZESPN0205-26-55 06:05:00* Test Item Value Reference Range Interpretation Comments MCH (test code = MCH) 31.4 pg 27.0-31.[address] [facility] VzriyzwQYSVXGWBXX5454-67-25 06:05:0078[facility]annHEMATOLOGY 2012-03-23 06:05:0090.4[facility] JtpfuulMRIIDQQQVG1874-32-58 06:05:0013.6[facility] OmwajiuJZGVMOFBQA8802-08-80 06:05:0034.7[facility] BhetejaIJUIVMQJHG1402-54-72 06:05:0010.4[facility] SvlyjcdCLQKAIJYWZ1266-39-93 06:05:0080.1[facility] [place] UCLZEWPTQZ8982-89-98 06:05:0015.4[facility] ClfhewuXEIRSAQNAZ6467-26-72 06:05:00 4.3[facility] WdaiqkvOZYHHMJKAQ0465-50-67 06:05:000.3[facility]annHEMATOLOGY 2012-03-23 06:05:000.0[facility] GbprxccUOXVZJNLFJ1539-73-80 06:05:000.0[facility] VkzitjgSXXUFXVVAE3446-94-10 06:05:000.2[facility] VxcbcmmCSJDCGQXNY1016-24-56 06:05:000.0[facility] JhfubfuNYVNEOJPLM5050-38-98 06:05:006.2[facility] UYLXGBLRTL0984-24-61 06:05:001.2[facility] KmffqvbSZREEFPJLT3166-42-72 21:17:35470 [facility] FzzzqvzFFGLSJNNFD3085-35-80 21:17:0051[facility] HermannCHEMISTRY 2012-03-22 19:40:10519Qdckadkx YsajekkCCLXOYMGW4606-68-85 19:40:0022[facility] PaedgroSZFIQSWCL6632-80-52 19:40:007.6[facility] WwwarxpBHJMMLWMS1209-44-45 19:40:0013.8[facility] OgnxwtySMJBDHQZD6280-15-97 19:40:003.8[facility] VMLGNPALE1800-82-62 19:40:000.7[facility] NbehzreAWNJBECYU3879-36-99 19:40:82709 [facility] UfqgendZUQSQIVCF5036-29-81 19:40:007[facility] OzmumkyWDAIRLDOQ0919-01-62 19:40:01016Ykjtovgi KeqyprgLDOAPKRSF6724-25-55 19:40:002.4[facility] EDFOTWKEC7823-69-29 19:40:001.8[facility] WivsxriQTPHNDFPQJ7131-14-02 19:40:0035.2 [facility] EisunpiOFCZHCFILT0128-71-45 19:40:0011.9[facility]annURINALYSIS 2012-03-22 19:40:00Negative (03/22/2012 14:40:00) [facility]annURINALYSIS 2012-03-22 19:40:00Negative *NA*(03/22/2012 14:40:00) [facility] [place] AYEXAYYIJO1782-46-47 19:40:00Trace *ABN*(03/22/2012 14:40:00) [facility] NATTQCVBIZ2831-42-61 19:40:00Trace *ABN*(03/22/2012 14:40:00) [facility] [place] VSHOUDIBXE9177-66-41 19:40:00Occasional /LPF *NA*(03/22/2012 14:40:00) [facility] GrwbbtmWAAOGOBTPD4784-70-20 19:40:0042[facility] ZiyniwxGUNETFBKWZ6480-13-06 19:40:005[facility] TuocytiTWGNXFBZSI8187-38-42 19:40:00Negative mg/dL *NA*(03/22/2012 14:40:00) [facility] LvoabaaVPYEGYMWLQ0720-02-22 19:40:00Clear (03/22/2012 14:40:00) [facility] IesewosQOMPYIXQYS1273-54-02 19:40:00Negative mg/dL *NA*(03/22/2012 14:40:00) [facility] QdrkimqYKKTVYNSHJ2965-70-91 19:40:00 Negative mg/dL (03/22/2012 14:40:00) [facility] VntvwieUXNDURAZFF7644-42-03 19:40:006.5[facility] DtcqdecHDSKRJGFWN9773-25-27 19:40:001.038[facility] [place] [facility] YQPKDPEWXV0573-30-22 19:40:00Yellow *NA*(03/22/2012 14:40:00) [facility] SQJFTTMFS0301-08-07 16:52:003.4[facility] TozmkziBGKQHYVGJ1399-07-55 16:52:09669 [facility] QrcfsedTDPCDSPDR4732-33-39 16:52:0029.0[facility] HermannCHEMISTRY 2012-03-22 16:52:001.08[facility] ZsveaoxRROATIMHS6548-26-94 16:52:001.0[facility] MxcwknmJXIYIXHGQ3900-96-70 16:52:0095[facility] NxdbduwAOAXWLHYH9570-19-79 16:52:0099.0[facility] SmyqyuxVBRICVUUI6479-50-51 16:52:00-1[facility] TMAJDKRAR0832-84-97 16:52:82378Qinkeahd RonkneuBTBKULOUY0917-41-62 16:52:0041 [facility] DqjcznuJRLTTVLKU9348-71-96 16:52:0024[facility] HermannCHEMISTRY 2012-03-22 16:52:007.38[facility] NzxuegmFLRDQDWRB8476-22-57 16:52:0037.0[facility] CpumvcbDOYMRZQRES8384-12-43 16:45:83498Eqhimpth HxpahtrWNVGBBJTON0017-93-95 16:45:0023[facility]BL[facility] YBAHEHF8639-28-64 15:00:00Product available (03/22/2012 10:00:00) [facility] HermannBLOOD BANK MASSZAP2249-70-81 12:00:00 Negative (03/22/2012 07:00:00) [facility] SashrutOVHGOVAAP4397-06-60 19:45:70617 [facility] SvxsphoDLAKKZNMK2630-77-79 19:45:009.0[facility] HermannCHEMISTRY 2012-03-08 19:45:0026[facility] NpbiokiHUQTFVDZA1708-61-43 19:45:000.5[facility] RcqpopwNXQZWPTJV9321-25-99 19:45:0064[facility] QwqwplmDTBPEGYQC8237-76-20 19:45:008.3[facility] QdmuyubSQOIWOPDA8187-27-78 19:45:80770Uousbfxd [facility] BCQTPQZJK4398-88-96 19:45:12719Alecxnmf WswvrcnIUOZYEUBS9439-74-92 19:45:0089 [facility] MeyoukqHXDBRBVMN1156-14-43 19:45:000.9[facility] HermannCHEMISTRY 2012-03-08 19:45:0010[facility] KmuyjhjCXUHVGHWK0232-09-37 19:45:0065[facility] ZnfegrmFNPHVVRZG7852-97-91 19:45:003.7[facility] SweanxcQKGFWDAJK2811-70-69 19:45:003.7[facility] YgbixjaAKHFSTUEA5263-91-80 19:45:000.8[facility] XKPTIZXVO8822-08-47 19:45:0014.7[facility] OmevpolUMKCEYBVA9903-05-81 19:45:0011 [facility] HvihjjcABYSXRETY8229-91-51 19:45:004.6[facility] HermannHEMATOLOGY 2012-03-08 19:45:00Slight *ABN*(03/08/2012 14:45:00) [facility] HermannHEMATOLOGY 2012-03-08 19:45:000.0[facility] SqfdqafCDSCEJFOKK6270-73-59 19:45:0055.0[facility] FsbmrkgKIKWLHFMDO0460-30-48 19:45:00Normal (03/08/2012 14:45:00) [facility] VkraohrXXNIDQKVHF6148-94-29 19:45:00Normal (03/08/2012 14:45:00) [facility] ZknnueaAYBBNKLXMR1608-55-85 19:45:000.6[facility] MrihndnZSYZRGNDEU6480-56-66 19:45:000.1[facility] DowlbwaHTFLMKUCWP1019-90-06 19:45:000.5[facility] HJSTOMWBQB8370-14-13 19:45:002.6[facility] AejbslaQSOVZDJJQS2166-00-58 19:45:004.0 [facility] AxbxehdSZQVTSXKCB3749-27-91 19:45:001.4[facility] HermannHEMATOLOGY 2012-03-08 19:45:0035.5[facility] AkefeluLUAYWKHBSY2846-48-69 19:45:007.6[facility] KixzlimBIIPLFBJQA4381-85-93 19:45:00* Test Item Value Reference Range Interpretation Comments PTT (test code = PTT) 34.8 s 22.9-35.[address] [facility] IapilnoGBHYKFNPDX0524-91-37 19:45:00* Test Item Value Reference Range Interpretation Comments PT (test code = PT) 14.7 s 12.0-14.[address] [facility] GdikoxsTXQWFBOGIR0703-67-08 19:45:001.15[facility]annHEMATOLOGY 2012-03-08 19:45:0013.2[facility] WdehdpeQUJYDJOFLN8598-22-06 19:45:007.3[facility] RixzivtBWXPQYCWDP4175-37-93 19:45:0034.5[facility] FxjhgsxFOPGZOHXPN8854-93-76 19:45:004.62[facility] JdyfhmcDWYPNQNUJY7930-90-34 19:45:0090.5[facility] FJSHDNTSYJ0041-16-14 19:45:00* Test Item Value Reference Range Interpretation Comments MCH (test code = MCH) 31.3 pg 27.0-31.[address] [facility] PnkywfyIQKXWSUDNP6623-94-24 19:45:0014.4[facility]annHEMATOLOGY 2012-03-08 19:45:0041.8[facility] PeqngvvNEQAZWWNER1235-23-81 19:45:0012.5[facility] LlgvjboIAONCMLCHB6142-31-39 19:45:22874Tgsuhawa [place]
--- NOTE | 2020-05-14 14:22 | NUR ---
green sheet on chart
[2020-05-14 14:33] LABS: CLARITY,URINE SL CLOUDY (CLEAR); COLOR,URINE STRAW (YELLOW); LEUKOCYTE ESTERASE ,URINE TRACE (NEGATIVE); NITRITE,URINE NEGATIVE (NEGATIVE)
[2020-05-14 14:34] LABS: BILIRUBIN,URINE NEGATIVE (NEGATIVE); KETONES,URINE NEGATIVE (NEGATIVE); PROTEIN,URINE DIPSTICK NEGATIVE (NEGATIVE); URINE UROBILINOGEN 0.2 mg/dL (0.2 - 1)
[2020-05-14 14:36] LABS: BASOPHILS # (AUTO) 0.1 (0.0-0.1); BASOPHILS % 0.7 % (0.0-1.0); EOSINOPHILS % 0.4 % (0.0-6.0); HEMATOCRIT 27.9 % (34.2-44.1); HEMOGLOBIN 9.4 g/dL (12.0-16.0); LYMPHOCYTES # (AUTO) 1.1 (1.0-3.2); LYMPHOCYTES % 13.2 % (18.0-39.1); MEAN CORPUSCULAR HEMOGLOBIN 32.2 pg (28-32); MEAN CORPUSCULAR HGB CONC 33.7 g/dL (31-35); MEAN CORPUSCULAR VOLUME 95.5 fL (81-99); MONOCYTES # (AUTO) 0.7 (0.2-0.8); MONOCYTES % 8.4 % (4.4-11.3); NEUTROPHILS # (AUTO) 6.3 (2.1-6.9); NEUTROPHILS % 76.8 % (38.7-80.0); PLATELET COUNT 80 x10e3/uL (140-360); RED BLOOD COUNT 2.92 x10e6/uL (3.6-5.1); RED CELL DISTRIBUTION WIDTH 16.2 % (11.7-14.4)
[2020-05-14 14:44] LABS: WBC,URINE (MAN) 0-5 /HPF (0-5)
[2020-05-14 14:45] LABS: BACTERIA,URINE MANY /HPF; EPITHELIAL CELLS,URINE RARE /LPF
[2020-05-14 14:49] LABS: INR 2.05; PROTHROMBIN TIME 24.1 seconds (11.9-14.5)
[2020-05-14 14:50] LABS: PARTIAL THROMBOPLASTIN TIME 44.1 seconds (23.8-35.5)
--- NOTE | 2020-05-14 14:54 | Diagnostic Imaging Report ---
TECHNIQUE: Frontal view of the chest. INDICATION: ^AMS ^[id number] ^1420 COMPARISON: 03/15/2020 DISCUSSION: Limited evaluation due to portable technique. Lines and hardware: Overlying EKG leads are noted. Heart and mediastinum: Stable. Lungs and pleura: No focal airspace consolidation. No pleural effusion. No pneumothorax. Soft tissues and bones: No acute abnormality. IMPRESSION: Negative for acute intrathoracic process. Signed by: Boogie De La Paz MD on 05/14/2020 2:51 PM
[2020-05-14 14:57] LABS: ALBUMIN 2.5 g/dL (3.5-5.0); ALBUMIN/GLOBULIN RATIO 0.5 (0.8-2.0); ANION GAP 20.8 mmol/L (8-16); CALCIUM 9.7 mg/dL (8.4-10.2); CREATININE, SERUM 3.77 mg/dL (0.57-1.11); MAGNESIUM 1.4 MG/DL (1.3-2.1); POTASSIUM 3.8 mmol/L (3.5-5.1)
[2020-05-14] MEDS ORDERED: SODIUM CHLORIDE 0.9% 1000ML 1,000 ML ONE (15:00)
[2020-05-14 15:02] LABS: B-TYPE NATRIURETIC PEPTIDE2 182.3 pg/mL (0-100)
[2020-05-14 15:03] LABS: CREATINE KINASE MB 0.5 ng/mL (0-5.0)
[2020-05-14] MEDS: CEFEPIME 2 GM/NS 0.9% 100 ML 100 ML IV STA ×2 (15:05→15:35)
--- NOTE | 2020-05-14 15:11 | NUR ---
IVONE BOYD MD RBVO TWICE.
[2020-05-14] MEDS ORDERED: SODIUM CHLORIDE 0.9% 1000ML 1,000 ML IV ONE (15:15)
[2020-05-14] MEDS ORDERED: CEFEPIME HCL 2 GM VIAL ONE (15:34)
--- NOTE | 2020-05-14 15:42 | Diagnostic Imaging Report ---
Examination: CT BRAIN WO CONTRAST History:^N ^AMS ^[id number] ^1420; altered mental status. Weakness. Comparison studies:Head CT performed March 15, 2020 Technique: Axial images were obtained from the skull base to the vertex. Coronal and sagittal images reconstructed from the axial data. Dose modulation, iterative reconstruction, and/or weight based adjustment of the mA/kV was utilized to reduce the radiation dose to as low as reasonably achievable. Intravenous contrast: None Findings: Scalp: No abnormalities. Bones: No fractures, blastic or lytic lesions. Brain sulci: Appropriate for age. Ventricles: No hydrocephalus. Extra-axial space: Acute on chronic bilateral frontoparietal subdural towards the vertex with regional mass effect. No midline shift or herniation. The maximal thickness on the right measures 9 mm, while on the left measures 3 mm. Parenchyma: No abnormal densities. No masses, hemorrhage, or acute or chronic cortical based vascular insults.. Sellar/suprasellar region: No abnormalities. Craniocervical junction: Patent foramen magnum. No Chiari one malformation. Incidental findings: Left cavernous and petrous internal carotid artery stent. Impression: New acute on chronic bilateral frontoparietal subdural hematomas towards the vertex with regional mass effect when compared to prior head CT performed March 15, 2020. The acute findings were conveyed to Dr. Borjas at 1536 hours. No midline shift or herniation. Signed by: Dr. Viviana Randall M.D. on 05/14/2020 3:39 PM
[2020-05-14] MEDS ORDERED: SODIUM CHLORIDE 0.9% 1000ML 1,500 ML IV ONE (15:45)
[2020-05-14] MEDS ORDERED: VANCOMYCIN 1GM/NS 250 ML 250 ML IV SCH (15:45)
--- NOTE | 2020-05-14 16:34 | NUR ---
REPORT TO BALDO AT [facility] NEURO 7S4 BED 9
--- NOTE | 2020-05-14 16:40 | Emergency Department Note ---
History of Present Illnes History of Present Illness Chief Complaint: Abdominal Complaints History of Present Illness This is a 65 year old female PATIENT IN FROM DR CHAN'S OFFICE FOR EVALUATION OF HYPOTENSION, AMS/HEPATIC ENCEPHALOPATHY, UTI, AND LIVER CIRRHOSIS. PATIENT APPEARS IN NO DISTRESS, RESP EVEN AND NONLABORED, DENIES PAIN. Historian: Patient, Family Member Arrival Mode: Car Community Living Specialist Required: No Onset (how long ago): day(s) Radiation: Reports non-radiation Severity: severe Onset quality: gradual Timing of current episode: constant Progression: worsening Chronicity: recurrent Context: Reports recent illness Relieving factors: none Exacerbating factors: none Associated symptoms: Reports confusion Past Medical/Family History Physician Review I have reviewed the patient's past medical and family history. Any updates have been documented here. Past Medical History Recent Fever: No Clinical Suspicion of Infectio: No New/Unexplained Change in Ment: No Past Medical History: Seizure Disorder, Liver Disease, Anxiety Other Medical History: CIRRHOSIS, ANEURYSM, HIGH AMMONIA, SEIZURES Past Surgical History: Cholecysctectomy Other Surgery: STENT FOR ANEURYSM IN THE BRAIN Social History Smoking Cessation: Unknown if ever smoked Counseling Performed: No Alcohol Use: None Any Illegal Drug Use: No TB Exposure/Symptoms: No Physically hurt or threatened: No Family History Family history of heart diseas: No Other Any Pre-Existing Lines (PICC,: No Review of Systems Review of Systems Constitutional: Reports no symptoms EENTM: Reports no symptoms Cardiovascular: Reports no symptoms Respiratory: Reports no symptoms Gastrointestinal: Reports no symptoms Genitourinary: Reports no symptoms Musculoskeletal: Reports no symptoms Integumentary: Reports no symptoms Neurological: Reports as per HPI, Reports other (AMS) Psychological: Reports no symptoms Endocrine: Reports no symptoms Hematological/Lymphatic: Reports no symptoms Physical Exam Related Data Allergies: Coded Allergies: No Known Allergies (Unverified , 03/08/20) Triage Vital Signs Vital Signs Date Time Temp Pulse Resp B/P (MAP) Pulse Ox O2 Delivery O2 Flow Rate FiO2 05/14/20 13:42 98.2 100 20 120/102 100 Room Air Vital signs reviewed: Yes Physical Exam CONSTITUTIONAL Constitutional: Present obese, Present ill appearing HENT HENT: Present normocephalic, Present atraumatic HENT L/R: Present left ext ear normal, Present right ext ear normal EYES Eyes: Reports PERRL, Reports conjunctivae normal NECK Neck: Present ROM normal PULMONARY Pulmonary: Present effort normal, Present breath sounds normal CARDIOVASCULAR Cardiovascular: Present regular rhythm, Present heart sounds normal, Present capillary refill normal, Present normal rate GASTROINTESTINAL Abdominal: Present soft, Present nontender, Present bowel sounds normal, Present distension (WITH FLUID WAVE) GENITOURINARY Genitourinary: Present exam deferred SKIN Skin: Present warm, Present dry MUSCULOSKELETAL Musculoskeletal: Present ROM normal, Present edema NEUROLOGICAL Neurological: Present alert, Present other (ORIENTED TO NAME ONLY, POSITIVE ASTERIXIS); Absent cranial nerve deficit PSYCHOLOGICAL Psychological: Present mood/affect normal, Present judgement normal Results Laboratory Result Diagram: 05/14/20 1406 05/14/20 1406 Laboratory Laboratory Tests Test 05/14/20 14:06 05/14/20 14:00 White Blood Count 8.17 x10e3/uL (4.8-10.8) Red Blood Count 2.92 x10e6/uL (3.6-5.1) Hemoglobin 9.4 g/dL (12.0-16.0) Hematocrit 27.9 % (34.2-44.1) Mean Corpuscular Volume 95.5 fL (81-99) Mean Corpuscular Hemoglobin 32.2 pg (28-32) Mean Corpuscular Hemoglobin Concent 33.7 g/dL (31-35) Red Cell Distribution Width 16.2 % (11.7-14.4) Platelet Count 80 x10e3/uL (140-360) Neutrophils (%) (Auto) 76.8 % (38.7-80.0) Lymphocytes (%) (Auto) 13.2 % (18.0-39.1) Monocytes (%) (Auto) 8.4 % (4.4-11.3) Eosinophils (%) (Auto) 0.4 % (0.0-6.0) Basophils (%) (Auto) 0.7 % (0.0-1.0) Neutrophils # (Auto) 6.3 (2.1-6.9) Lymphocytes # (Auto) 1.1 (1.0-3.2) Monocytes # (Auto) 0.7 (0.2-0.8) Eosinophils # (Auto) 0.0 (0.0-0.4) Basophils # (Auto) 0.1 (0.0-0.1) Absolute Immature Granulocyte (auto 0.04 x10e3/uL (0-0.1) Prothrombin Time 24.1 seconds (11.9-14.5) Prothromb Time International Ratio 2.05 Activated Partial Thromboplast Time 44.1 seconds (23.8-35.5) Sodium Level 133 mmol/L (136-145) Potassium Level 3.8 mmol/L (3.5-5.1) Chloride Level 91 mmol/L (98-107) Carbon Dioxide Level 25 mmol/L (22-29) Anion Gap 20.8 mmol/L (8-16) Blood Urea Nitrogen 33 mg/dL (7-26) Creatinine 3.77 mg/dL (0.57-1.11) Estimat Glomerular Filtration Rate 12 ML/MIN (60-) BUN/Creatinine Ratio 9 (6-25) Glucose Level 111 mg/dL (74-118) Lactic Acid Level 6.7 mmol/L (0.5-2.0) Calcium Level 9.7 mg/dL (8.4-10.2) Magnesium Level 1.4 MG/DL (1.3-2.1) Total Bilirubin 6.5 mg/dL (0.2-1.2) Aspartate Amino Transf (AST/SGOT) 106 IU/L (5-34) Alanine Aminotransferase (ALT/SGPT) 39 IU/L (0-55) Alkaline Phosphatase 197 IU/L (40-150) Ammonia 66 UG/DL (31-123) Creatine Kinase 8 IU/L (29-168) Creatine Kinase MB 0.50 ng/mL (0-5.0) Troponin I 0.021 ng/mL (0-0.300) B-Type Natriuretic Peptide 182.3 pg/mL (0-100) Total Protein 7.3 g/dL (6.5-8.1) Albumin 2.5 g/dL (3.5-5.0) Globulin 4.8 g/dL (2.3-3.5) Albumin/Globulin Ratio 0.5 (0.8-2.0) Urine Color Straw (YELLOW) Urine Clarity Sl cloudy (CLEAR) Urine pH 5 (5 - 7) Urine Specific [place] 1.020 (1.010-1.025) Urine Protein Negative (NEGATIVE) Urine Glucose (UA) Negative (NEGATIVE) Urine Ketones Negative (NEGATIVE) Urine Blood Negative (NEGATIVE) Urine Nitrite Negative (NEGATIVE) Urine Bilirubin Negative (NEGATIVE) Urine Urobilinogen 0.2 mg/dL (0.2 - 1) Urine Leukocyte Esterase Trace (NEGATIVE) Urine RBC None /HPF (0-5) Urine WBC 0-5 /HPF (0-5) Urine Epithelial Cells Rare /LPF (NONE) Urine Bacteria Many /HPF (NONE) Lab results reviewed: Yes Imaging Imaging results reviewed: Yes Procedures 12 Lead ECG Interpretation ECG Interpretation : ECG: ECG 1 Community Living Specialist: Interpreted by ED physician Date: May 14, 2020 Time: 13:57 Rhythm: sinus rhythm Rate: normal BPM: 98 QRS axis: normal ST segments normal: Yes T wave inversion: II, III, aVF, V3, V4, V5, V6 T waves flattening: I Clinical Impression: abnormal ECG Central Line Placement Central Line Location: right femoral Time out performed: Yes Patient Placed on Monitor/Puls: Yes MD Prep: mask, gown, gloves Central Line Prep: Povidone-Iodine 1%, Chlorhexidine scrub Local Anesthetic: lidocaine 1% Amount of anesthesia used (mL): 4 Ultrasound Used for Placement: Yes Central Line Lumen Inserted: triple Post Procedure: sutured in place, good blood return, all ports aspirated/flushed/capped, sterile dressing applied Patient tolerated procedure: no complications Complications: none Critical Care Time Total Critical Care Time (min): 45 Critical care time exclusive o: separately billable procedures Critcal care necessary due to: [facility] [employer] failure or compromise, sepsis Critcal care time spent by me: discussion w consultants, obtaining hx from patient/surrogate, order/review laboratory studies, order/review radiographic studies, re-evaluation of patient condition Assessment & Plan Medical Decision Making MDM CIRRHOTIC PT WITH AMS, HYPOTENSION - CHECK CBC, CHEM, PT/PTT, UA, LOZANO-CX'S, LACTATE, AMMONIA, ECG, CARDIAC ENZYMES, CT BRAIN - EVAL HEPATIC ENCEPH, UTI, SEPSIS, CEREBRAL BLEED, COAGULOPATHY, STEMI/NSTEMI Reassessment Reassessment PT WITH NO OBVIOUS SOURCE OF INFECTION BUT BP LOW, LACTIC ACID 6.7 - ? SEPTIC SHOCK - 30 CC/KG BOLUS IVF'S, CEFEPIME/VANCO, CENTRAL LINE PLACED. I PERFORMED A BEDSIDE VOLUME REASSESSMENT. PT WITH ACUTE ON CHRONIC SDH'S BILATERAL FRONTAL - TRANSFER INITIATED TO [facility] - I SPOKE WITH DR ASHLEY ROMERO, [facility], WHO ACCEPTED PT FOR TRANSFER Assessment & Plan Final Impression: (1) Subdural hematoma (2) Altered mental status (3) Septic shock (4) Hepatic encephalopathy (5) Renal insufficiency Depart Disposition: TRANS TO OTHER [facility] Last Vital Signs Date Time Temp Pulse Resp B/P (MAP) Pulse Ox O2 Delivery O2 Flow Rate FiO2 05/14/20 16:08 91 22 111/47 100 Room Air 05/14/20 13:42 98.2 Home Meds Reported Medications Lactulose (LACTULOSE) 20 Gm/30 Ml Solution, 15 ML PO TID, EACH 03/08/20 Levetiracetam (LEVETIRACETAM) 500 Mg Tablet, 500 MG PO BID 03/08/20 Spironolactone (SPIRONOLACTONE) 25 Mg Tablet, 25 MG PO DAILY, #60 TAB 03/08/20 Thiamine Hcl (VITAMIN B-1) 100 Mg Tablet, 100 MG PO DAILY 03/08/20 Midodrine Hcl (MIDODRINE HCL) 5 Mg Tablet, 10 MG PO TID, TAB 03/08/20 Furosemide (FUROSEMIDE) 40 Mg Tablet, 40 MG PO Daily, #30 TAB 03/08/20 Pantoprazole Sodium* (PROTONIX) 40 Mg Tablet.dr, 40 MG PO DAILY, TAB 03/08/20 [folic acid] No Conflict Check, 1 MG PO DAILY 03/08/20 Rifaximin (XIFAXAN) 550 Mg Tablet, 550 MG PO DAILY 03/08/20 Ferrous Sulfate (FERROUS SULFATE) 325 Mg Tablet, 325 MG PO DAILY 03/08/20 Medications in the ED Sodium Chloride 1,000 ml @ ud STK-MED ONCE .ROUTE ; Start 05/14/20 at 15:00; Stop 05/14/20 at 14:54; Status DC Cefepime HCl 100 ml @ 200 mls/hr NOW STAT IV Last administered on 05/14/20at 15:05; Admin Dose 200 MLS/HR; Start 05/14/20 at 14:58; Stop 05/14/20 at 15:27; Status DC Vancomycin HCl 250 ml @ 167 mls/hr NOW IV Last administered on 05/14/20at 15:35; Admin Dose 167 MLS/HR; Start 05/14/20 at 15:45; Stop 05/14/20 at 18:00 Sodium Chloride 1,000 ml @ 0 mls/hr Q0M ONCE IV Last administered on 05/14/20at 14:50; Admin Dose 1,000 MLS/HR; Start 05/14/20 at 15:15; Stop 05/14/20 at 15:16; Status DC Cefepime HCl 2 gm STK-MED ONCE .ROUTE ; Start 05/14/20 at 15:34; Stop 05/14/20 at 15:28; Status DC Sodium Chloride 1,500 ml @ 0 mls/hr Q0M ONCE IV Last administered on 05/14/20at 15:34; Admin Dose 1,500 MLS/HR; Start 05/14/20 at 15:45; Stop 05/14/20 at 15:48; Status DC CARLITOS HARPER MD May 14, 2020 16:40
--- NOTE | 2020-05-14 16:58 | NUR ---
levaphed and plasma will be given in air by life [facility] after verbal order by dr mccann.
--- NOTE | 2020-05-14 16:58 | NUR ---
report to [facility] done.
== END 2020-05-14 16:59 | disposition other institution (70) ==
LOC: ER 13:58
DX: I62.00 Nontraumatic subdural hemorrhage, unspecified (principal); R65.21 Severe sepsis with septic shock; R41.82 Altered mental status, unspecified; K72.90 Hepatic failure, unspecified without coma; N28.9 Disorder of kidney and ureter, unspecified; G40.909 Epilepsy, unspecified, not intractable, without status epilepticus; F41.9 Anxiety disorder, unspecified; K74.60 Unspecified cirrhosis of liver; Z11.59 Encounter for screening for other viral diseases
CPT/HCPCS: 36415; 51700; 70450; 71045; 80053; 81001; 82140; 82550; 82553; 83605; 83735; 83880; 84484; 85025; 85610; 85730; 86850; 86900; 87040; 87071; 87086; 87186; 87205; 93005; 99285; J0692; J3370; J7030; U0002